=== PATIENT | female | born 1960 | race Caucasian/White ===

== ENCOUNTER 2016-07-31 06:59 | Inpatient (IN) | payer BC, OTHER ==
[~2016-07-31] VITALS: Ht 167.6 cm; Wt 86.3 kg
[2016-07-31] VITALS (9 sets, daily range): BP systolic 82–120; BP diastolic 59–70; PULSE 98–110; TEMP 36.9–38.3; O2SAT 90–96; Ht 167.6 cm; Wt 86.3 kg
[~2016-07-31 06:59] MED LIST: ALBUAER19 INH; AMIT25TA9 PO; FRS/40 PO; GABA-113 PO; METO-217 PO; OXYC15TA89 PO; PANT40TA PO; RANI300T PO; SIMV20TA5 PO; TIZA4CAP PO
[2016-07-31] MEDS ORDERED: ALBUT/IPRATROP 3MG/0.5MG NEB 3 ML VIAL INH STA (07:05)
[2016-07-31] MEDS ORDERED: SODIUM CHLORIDE 0.9% 1000ML 1,000 ML IV STA ×3 (07:05→09:48)
[2016-07-31] MEDS ORDERED: ACETAMINOPHEN 325 MG TAB PO STA (07:05)
[2016-07-31] MEDS ORDERED: LEVAQUIN 750MG / 150ML D5W IV STA (07:48)
[2016-07-31] MEDS ORDERED: PIPERACILLIN/TAZOBACTAM 4.5 GM/100ML D5W IV STA (07:48)
--- NOTE | 2016-07-31 07:49 | DIAGNOSTIC IMAGING REPORT ---
CHEST ONE VIEW PORTABLE CLINICAL HISTORY: Shortness of breath. Fever. COMPARISON STUDY: No previous studies for comparison. FINDINGS: The heart is normal in size. There are airspace opacities within the right upper lobe and right lower lung zone consistent with pneumonia. Films subsequent to treatment are recommended in follow-up. The left lung is clear. There are no pleural effusions.[ IMPRESSION: Right lung airspace opacities consistent with pneumonia. Films subsequent to treatment are recommended in follow-up Electronically signed by: William Daniel M.D. 07/31/2016 7:47 AM Dictated Date/Time: 07/31/2016 7:47 AM
[2016-07-31 07:52] LABS: BASO % 0.2 %; BASO ABS # 0.04 K/uL (0-0.2); COMPLETE YES; HEMATOCRIT 39.4 % (37-47); IG% 2.8 %; LYMPH ABS # 1.66 K/uL (1.2-3.4); MEAN CELL VOLUME 88.7 fL (80-100); MEAN CORPUSCULAR HEMOGLOBIN 29.5 pg (25-34); MEAN CORPUSCULAR HGB CONC 33.2 g/dl (32-36); MEAN PLATELET VOLUME 9.8 fL (7.4-10.4); MONO % 4.5 %; NEUT % 84.5 %; PLATELET COUNT 233 K/uL (130-400); RED BLOOD COUNT 4.44 M/uL (4.2-5.4); WHITE BLOOD COUNT 20.68 K/uL (4.8-10.8)
[2016-07-31 08:03] LABS: BUN/CREATININE RATIO 11.8 (10-20); CALCIUM 8.3 mg/dl (8.5-10.1); CREATININE 1.3 mg/dl (0.60-1.20); MAGNESIUM 1.5 mg/dl (1.8-2.4); POTASSIUM 3.8 mmol/L (3.5-5.1)
[2016-07-31 08:07] LABS: CKMB/CK RATIO 1.2 (0-3.0)
[2016-07-31] MEDS ORDERED: FENTANYL CITRATE INJ 50 MCG/1 ML 2 ML VIAL IV STA (08:10)
[2016-07-31] MEDS ORDERED: MAGNESIUM SULFATE 1GM / D5W 1 GM BAG IV STA (08:11)
--- NOTE | 2016-07-31 08:11 | EMERGENCY ROOM VISIT NOTE ---
History Report prepared by Rober: Sarah Nazario Under the Supervision of: Dr. Griselda Hebert M.D. First contact with patient: 07:05 Chief Complaint: ILLNESS Stated Complaint: FEVER,PAIN IN AB,BACK AND LEG, TROUBLE BREATHING History of Present Illness The patient is a 56 year old female who presents to the Emergency Room with complaints of persistent shortness of breath which started [employer]. She also reports that she is experiencing pain in the back, leg and hip. She rates her discomfort as a 9/10 in severity. The patient reports that she fell twice recently, once in the movie theater and once in the bathroom. She states that her legs just gave out. She has a history of back and hip problems, reporting that she has rods in her back and has had injections in her hip. Her family reports that she has been sick all winter with bronchitis. She is a former smoker, but she quit 10-15 years ago. She has received her flu shot. Source of History: patient Onset: [employer] Position: other (global) Symptom Intensity: 9/10 Quality: other (trouble breathing) Timing: other (persistent) Associated Symptoms: + back pain Note: Pt also experiencing leg and hip pain. Review of Systems See HPI for pertinent positives & negatives. A total of 10 systems reviewed and were otherwise negative. Past Medical & Surgical Medical Problems: (1) Chronic low back pain (2) GERD (gastroesophageal reflux disease) (3) Hyperlipidemia (4) Hypertension (5) PNA (pneumonia) (6) Pneumonia (7) Pneumonia (8) Sepsis Surgical Problems: (1) History of appendectomy (2) History of carpal tunnel surgery (3) History of lumbar decompression and fusion with revision Family History No pertinent family history Social History Smoking Status: Former Smoker Drug Use: none Marital Status: Housing Status: lives with family Occupation Status: disabled Current/Historical Medications Scheduled Amitriptyline Hcl (Elavil), 25 MG PO HS Gabapentin (Neurontin), 600 MG PO TID Metoprolol Succinate (Toprol Xl), 50 MG PO DAILY Pantoprazole (Protonix), 40 MG PO DAILY Ranitidine Hcl (Zantac), 300 MG PO HS Simvastatin (Zocor), 20 MG PO HS Tizanidine (Zanaflex), 8 MG PO HS Scheduled PRN Albuterol Hfa (Ventolin Hfa), 1 PUFFS INH UD PRN for Shortness of Breath Oxycodone Hcl (Oxycodone Hcl), 1 TAB PO QID PRN for Pain Allergies Coded Allergies: No Known Allergies (Unverified , 07/31/16) Physical Exam Vital Signs Date Time Temp Pulse Resp B/P Pulse Ox O2 Delivery O2 Flow Rate FiO2 07/31/16 10:41 36.6 104 20 91/56 95 Mask 5.0 07/31/16 10:08 103 07/31/16 10:05 104 83/52 94 Mask 5.0 07/31/16 09:55 105 81/55 94 Mask 5.0 07/31/16 09:37 103 26 79/52 94 Mask 5.0 07/31/16 09:27 105 26 85/56 94 Mask 5.0 07/31/16 09:17 106 26 75/49 90 Mask 4.0 07/31/16 09:10 110 26 80/41 92 Mask 4.0 07/31/16 08:47 112 20 76/40 90 Nasal Cannula 4.0 07/31/16 08:41 116 22 68/45 92 Nasal Cannula 4.0 07/31/16 08:30 119 22 49/38 90 Nasal Cannula 4.0 07/31/16 08:22 121 22 91/52 93 Nasal Cannula 4.0 07/31/16 08:08 120 20 106/66 94 Nasal Cannula 4.0 07/31/16 07:17 92 Nasal Cannula 4.0 07/31/16 07:16 120 22 98/62 82 Room Air 07/31/16 07:14 120 07/31/16 07:02 39.4 112 28 91 Room Air Physical Exam Vital signs reviewed. Noted to be tachycardic and hypoxic. Periodically hypotensive General: Well-appearing, warm to touch, in no significant distress. HEENT: No scleral icterus, PERRLA, neck supple. Atraumatic. Cardiovascular: Tachycardic, regular rhythm, no extra sounds. Pulmonary: Scattered wheezes bilaterally, normal work of breathing. Abdomen: Soft, nontender, nondistended, positive bowel sounds. Musculoskeletal: Ecchymosis and abrasions bilaterally on legs which appear to be old, no peripheral edema. Neurologic: Patient awake alert and oriented x 3, full strength in all 4 extremities. Cranial nerves 2 through 12 grossly intact. Skin: Warm, dry, no rash Medical Decision & Procedures ER Provider Diagnostic Interpretation: X-ray results as stated below per interpretation by me and the radiologist: CHEST ONE VIEW PORTABLE CLINICAL HISTORY: Shortness of breath. Fever. COMPARISON STUDY: No previous studies for comparison. FINDINGS: The heart is normal in size. There are airspace opacities within the right upper lobe and right lower lung zone consistent with pneumonia. Films subsequent to treatment are recommended in follow-up. The left lung is clear. There are no pleural effusions.[ IMPRESSION: Right lung airspace opacities consistent with pneumonia. Films subsequent to treatment are recommended in follow-up Electronically signed by: William Daniel M.D. 07/31/2016 7:47 AM Laboratory Results 07/31/16 07:25 Red Blood Count 4.44, Mean Corpuscular Volume 88.7, Mean Corpuscular Hemoglobin 29.5, Mean Corpuscular Hemoglobin Concent 33.2, Mean Platelet Volume 9.8, Neutrophils (%) (Auto) 84.5, Lymphocytes (%) (Auto) 8.0, Monocytes (%) (Auto) 4.5, Eosinophils (%) (Auto) 0.0, Basophils (%) (Auto) 0.2, Neutrophils # (Auto) 17.47, Lymphocytes # (Auto) 1.66, Monocytes # (Auto) 0.93, Eosinophils # (Auto) 0.01, Basophils # (Auto) 0.04 07/31/16 07:25 Test 07/31/16 07:25 07/31/16 07:45 07/31/16 08:00 07/31/16 09:00 White Blood Count 20.68 K/uL (4.8-10.8) Red Blood Count 4.44 M/uL (4.2-5.4) Hemoglobin 13.1 g/dL (12.0-16.0) Hematocrit 39.4 % (37-47) Mean Corpuscular Volume 88.7 fL (80-100) Mean Corpuscular Hemoglobin 29.5 pg (25-34) Mean Corpuscular Hemoglobin Concent 33.2 g/dl (32-36) Platelet Count 233 K/uL (130-400) Mean Platelet Volume 9.8 fL (7.4-10.4) Neutrophils (%) (Auto) 84.5 % Lymphocytes (%) (Auto) 8.0 % Monocytes (%) (Auto) 4.5 % Eosinophils (%) (Auto) 0.0 % Basophils (%) (Auto) 0.2 % Neutrophils # (Auto) 17.47 K/uL (1.4-6.5) Lymphocytes # (Auto) 1.66 K/uL (1.2-3.4) Monocytes # (Auto) 0.93 K/uL (0.11-0.59) Eosinophils # (Auto) 0.01 K/uL (0-0.5) Basophils # (Auto) 0.04 K/uL (0-0.2) RDW Standard Deviation 44.0 fL (36.4-46.3) RDW Coefficient of Variation 13.5 % (11.5-14.5) Immature Granulocyte % (Auto) 2.8 % Immature Granulocyte # (Auto) 0.57 K/uL (0.00-0.02) Prothrombin Time 13.5 SECONDS (9.0-12.0) Prothromb Time International Ratio 1.3 (0.9-1.1) Activated Partial Thromboplast Time 38.0 SECONDS (21.0-31.0) Partial Thromboplastin Ratio 1.5 Anion Gap 10.0 mmol/L (3-11) Est Creatinine Clear Calc Drug Dose 52.4 ml/min Estimated GFR () 53.9 Estimated GFR (Non- 46.5 BUN/Creatinine Ratio 11.8 (10-20) Calcium Level 8.3 mg/dl (8.5-10.1) Magnesium Level 1.5 mg/dl (1.8-2.4) Total Bilirubin 0.4 mg/dl (0.2-1) Direct Bilirubin 0.1 mg/dl (0-0.2) Aspartate Amino Transf (AST/SGOT) 18 U/L (15-37) Alanine Aminotransferase (ALT/SGPT) 17 U/L (12-78) Alkaline Phosphatase 82 U/L (45-117) Total Creatine Kinase 60 U/L (26-192) Creatine Kinase MB 0.7 ng/ml (0.5-3.6) Creatine Kinase MB Ratio 1.2 (0-3.0) C-Reactive Protein 26.50 mg/dl (0-0.29) Total Protein 6.3 gm/dl (6.4-8.2) Albumin 2.6 gm/dl (3.4-5.0) Lipase 40 U/L (73-393) Bedside Lactic Acid Venous 2.43 mmol/L (0.90-1.70) Influenza Type A (RT-PCR) Neg for Influ A (NEG) Influenza Type A Antigen Neg for Influ A (NEG) Influenza Type B Antigen Neg for Influ B (NEG) Influenza Type B (RT-PCR) Neg for Influ B (NEG) Venous Blood pH 7.45 (7.36-7.41) Venous Blood Partial Pressure CO2 38 mmHg (38.0-50.0) Venous Blood Partial Pressure O2 55 mmHg Venous Blood HCO3 26 mmol/L Venous Blood Oxygen Saturation 87.5 % Venous Blood Base Excess 2.0 mmol/L Test 07/31/16 10:00 07/31/16 10:40 07/31/16 11:10 Urine Color YELLOW Urine Appearance CLEAR (CLEAR) Urine pH 6.0 (4.5-7.5) Urine Specific [place] 1.006 (1.000-1.030) Urine Protein NEG (NEG) Urine Glucose (UA) NEG (NEG) Urine Ketones NEG (NEG) Urine Occult Blood TRACE (NEG) Urine Nitrite POS (NEG) Urine Bilirubin NEG (NEG) Urine Urobilinogen NEG (NEG) Urine Leukocyte Esterase LARGE (NEG) Urine WBC (Auto) >30 /hpf (0-5) Urine RBC (Auto) 0-4 /hpf (0-4) Urine Hyaline Casts (Auto) /lpf (0-5) Urine Epithelial Cells (Auto) 10-20 /lpf (0-5) Urine Bacteria (Auto) 1+ (NEG) Urine Pathogenic Casts /lpf (0) Lactic Acid Level 1.2 mmol/L (0.4-2.0) Procalcitonin 14.30 ng/mL (0-0.5) Random Cortisol 22.53 mcg/dl Laboratory results per my review. Medications Administered Medications (Trade) Dose Ordered Sig/Larry Route Start Time Stop Time Status Last Admin Dose Admin Albuterol/ Ipratropium 3 ml 3 ml NOW STAT INH 07/31/16 07:05 07/31/16 07:15 DC 07/31/16 07:53 3 ML Sodium Chloride (Nss 1000ml) 1,000 ml @ 999 mls/hr Q1H1M STAT IV 07/31/16 07:05 07/31/16 08:05 DC 07/31/16 07:52 999 MLS/HR Acetaminophen (Tylenol Tab) 650 mg NOW STAT PO 07/31/16 07:05 07/31/16 07:15 DC 07/31/16 07:52 650 MG Levofloxacin (Levaquin / D5W) 750 mg NOW STAT IV 07/31/16 07:48 07/31/16 07:50 DC 07/31/16 07:58 750 MG Piperacillin Sod/ Tazobactam Sod 4.5 gm 4.5 gm NOW STAT IV 07/31/16 07:48 07/31/16 07:50 DC 07/31/16 07:58 4.5 GM Sodium Chloride (Nss 1000ml) 1,000 ml @ 999 mls/hr Q1H1M STAT IV 07/31/16 07:50 07/31/16 08:50 DC 07/31/16 07:53 999 MLS/HR Magnesium Sulfate 1 gm 1 gm NOW STAT IV 07/31/16 08:11 07/31/16 08:12 DC 07/31/16 08:11 1 GM Vancomycin HCl 1975 mg/Sodium Chloride 539.5 ml @ 200 mls/hr ONE STAT IV 07/31/16 09:48 07/31/16 12:29 DC 07/31/16 10:17 200 MLS/HR Sodium Chloride (Nss 1000ml) 1,000 ml @ 150 mls/hr Q6H40M STAT IV 07/31/16 09:48 07/31/16 11:48 DC 07/31/16 09:48 150 MLS/HR Acetaminophen (Tylenol Tab) 650 mg Q4H PRN PO 07/31/16 09:30 08/30/16 09:29 07/31/16 15:24 650 MG Procedure Central Venous Catheter Indication: hypotension, septic shock Catheter type: triple lumen Location: right femoral vein Verbal consent was obtained after the risks and benefits were explained, including but not limited to pneumothorax, hemothorax, vessel injury, bleeding, scarring, infection, pain, and bone/joint/nerve damage. At this time, the risks of the procedure are less than the risks of NOT performing the procedure. A time out was taken and the correct patient and site identified. The patient was placed in the supine position and the skin was prepped in the standard fashion with chlorhexidine and full sterile drapes applied. The proper landmarks were identified with ultrasound, anesthetized with 1% lidocaine without epinephrine, and the needle was inserted through the skin in the standard fashion. The needle was carefully advanced into blood vessel lumen under ultrasound guidance. The guidewire was placed uneventfully. The vessel is dilated and the catheter was placed. It was sutured into position. There was good blood return from all ports. The patient tolerated the procedure well and there were no complications. Post procedure ultrasound confirms the catheter in the femoral vein. ECG Indication: SOB/dyspnea Rate (beats per minute): 121 Rhythm: sinus tachycardia Findings: no acute ischemic change, no ectopy ED Course 0715: Past medical records reviewed. The patient was evaluated in room A3. A complete history and physical examination was performed. 0705: Acetaminophen 650 mg PO, NSS 1000 ml @ 999 mls/hr IV, Duoneb 3 ml INH. 0748: Zosyn IV 4.5 gm IV, Levofloxacin 750 mg IV. 0750: NSS 1000 ml @ 999 mls/hr IV. 0811: Magnesium Sulfate 1 gm IV. 0813: I spoke with [place] [facility] [place] We discussed the patients results and treatment plan. The patient will be evaluated by the [facility] for further management. 0815: I reevaluated the patient. I discussed the results and treatment plan with the patient. I answered all pertaining questions that she had. She expressed understanding and verbalized agreement. 0900: I placed a central venous line in the patient. 0947: I reevaluated the patient. She is resting comfortably. Medical Decision Fever: Influenza, other viral illness, pneumonia, urinary tract infection, metabolic abnormality, medication effect, cellulitis, meningitis, intra-abdominal source. This patient was evaluated and appeared to be in some distress. Patient is noted to be tachycardic, febrile and periodically hypotensive. She was hydrated with normal saline solution. Blood cultures and lactic acid were obtained. Patient was medicated with IV Levaquin and Zosyn after chest x-ray reveals a right upper and lower lobe opacity. Patient's white blood cell count is 20,000. She was given a DuoNeb treatment. Influenza swab is negative. Despite 4 L of IV fluids, the patient's blood pressure remained hypotensive in the ED systolic. A right inguinal triple-lumen catheter was placed. Please see my procedure note above. The need for vasopressors has been left to the inpatient service. Patient maintained her oxygen saturations on nasal cannula oxygen. The case has been signed off to the hospitalist service and intensive care. The patient will be admitted to the ICU for further management. She and her are aware of the plan and agree. Consults Time Called: 0750 Consulting Physician: Dr. [place] [facility] [place] Returned Call: 0813 We discussed the patients results and treatment plan. The patient will be evaluated by the [facility] for further management. Impression Primary Impression: Sepsis Additional Impression: Pneumonia Critical Care I have personally spent greater than 35 minutes of critical care time in the direct management of this patient. This includes bedside care, interpretation of diagnostic studies, and testing, discussion with consultants, patient, and family members, and other required patient management activities. This 35 minutes is in excess of all separately billable procedures. Scribe Attestation The scribe's documentation has been prepared under my direction and personally reviewed by me in its entirety. I confirm that the note above accurately reflects all work, treatment, procedures, and medical decision making performed by me. Departure Information Dispostion Being Evaluated By Hospitalist Referrals Wilman Ardon PA-C (PCP) Patient Instructions My [facility] Problem Qualifiers Primary Impression: Sepsis Sepsis type: sepsis due to unspecified organism Qualified Codes: A41.9 - Sepsis, unspecified organism Additional Impression: Pneumonia Pneumonia type: due to unspecified organism Laterality: right Lung location : unspecified part of lung Qualified Codes: J18.9 - Pneumonia, unspecified organism
[2016-07-31] MEDS ORDERED: VNTHFA/IN INH (08:30)
[2016-07-31 09:11] LABS: VEN BLD GAS O2 SATURATION 87.5 %
[2016-07-31] MEDS ORDERED: MAGNESIUM HYDROXIDE SUSP 30 ML UDC PO PRN (09:30)
[2016-07-31] MEDS ORDERED: ALUMINUM/MAGNESIUM/SIMETH (MAALOX MAX) 30 ML UDC PO PRN (09:30)
[2016-07-31] MEDS ORDERED: ONDANSETRON INJ 2 MG/ML 2 ML VIAL IV PRN (09:30)
[2016-07-31] MEDS ORDERED: OXYC-164 PO (09:33)
--- NOTE | 2016-07-31 09:38 | DIAGNOSTIC IMAGING REPORT ---
Limited venous Doppler VENOUS DOPP LOWER EXT UNILAT CLINICAL HISTORY: RLE TRIPLE LUMEN, VERIFY VENOUS PLACEMENT tube position TECHNIQUE: Ultrasound COMPARISON STUDY: None FINDINGS: Ultrasound confirms presence of a venous catheter within the right common femoral vein IMPRESSION: Venous catheter is confirmed to be within the right common femoral vein Electronically signed by: Андрей Brito M.D. 07/31/2016 9:37 AM Dictated Date/Time: 07/31/2016 9:36 AM
[2016-07-31] MEDS ORDERED: SODIUM CHLORIDE 0.9% IV STA (09:48)
[2016-07-31] MEDS ORDERED: VANCOMYCIN IV STA (09:48)
[2016-07-31 10:29] LABS: INFLUENZA A PCR Neg for Influ A (NEG); INFLUENZA B PCR Neg for Influ B (NEG)
[2016-07-31 10:44] LABS: URINE APPEARANCE CLEAR (CLEAR); URINE BILIRUBIN NEG (NEG); URINE COLOR YELLOW; URINE NITRITE POS (NEG); URINE SPECIFIC GRAVITY 1.006 (1.000-1.030); UROBILINOGEN NEG (NEG); ZZURINE CULT IF INDIC CATH YES
[2016-07-31 10:48] LABS: INR 1.3 (0.9-1.1); PARTIAL THROMBOPLASTIN RATIO 1.5; PROTHROMBIN TIME (PATIENT) 13.5 SECONDS (9.0-12.0)
[2016-07-31 10:51] LABS: MANUAL MICROSCOPIC REQUIRED? NO; REVIEW REQ? YES
--- NOTE | 2016-07-31 10:51 | History and Physical ---
History & Physical Date & Time of Service: Jul 31, 2016 at 10:08 Chief Complaint: Fever,Pain In Ab,Back And Leg, Trouble Breathing Primary Care Physician: Wilman Ardon PA-C History of Present Illness Source: patient, spouse ( at bedside), clinic records, hospital records This is a 56 y/o female with a history of HTN, HLD, chronic back pain, migraines , and GERD who presented to the ED on 07/31 with shortness of breath, fevers, weakness and fatigue. Patient states she has had shortness of breath for the last few days that has gotten progressively worse. The patient does not use any supplemental oxygen at home. She does have an albuterol inhaler to use as needed, although this has not helped with her symptoms. She complains of fevers at home along with a productive cough, wheezing, dyspnea on exertion, lightheadedness, weakness, and fatigue. She complains of intermittent a 5/10 dull chest pain located in the center of her chest. She also complains of a 6/ 10 dull abdominal pain that is intermittent. Last night she experienced nausea and vomiting. She has not had much of an appetite in the last few days. She reports 2 recent falls due to weakness, one the night of 07/26 and one last night. She denies any loss of consciousness or head trauma. She complains of pain in the right hip and leg following the falls. The patient denies chills, sweats, palpitations, claudication, dysuria, hematuria, urinary retention, paralysis, numbness and tingling. The patient arrived to the ED tachycardic and hypotensive as well as febrile. A right femoral triple lumen central line was placed by the ED physician after the patient's blood pressure dropped to 49/38. The patient has received a total of 4 L of normal saline boluses and remains hypotensive. Past Medical/Surgical History Medical Problems: (1) Chronic low back pain Status: Chronic (2) GERD (gastroesophageal reflux disease) Status: Chronic (3) Hyperlipidemia Status: Chronic (4) Hypertension Status: Chronic Migraines Surgical Problems: (1) History of appendectomy Status: Resolved (2) History of carpal tunnel surgery Status: Resolved (3) History of lumbar decompression and fusion with revision Status: Resolved Family History Hypertension Myocardial infarction Stroke Social History Smoking Status: Former Smoker Smokeless Tobacco Use: No Alcohol Use: none Drug Use: none Marital Status: Housing status: lives with family ( and grandchildren) Occupational Status: disabled Immunizations History of Influenza Vaccine: No History of Tetanus Vaccine?: Yes History of Pneumococcal: No History of Hepatitis B Vaccine: Yes Allergies Coded Allergies: No Known Allergies (Unverified , 07/31/16) Home Medications Scheduled Amitriptyline Hcl (Elavil), 25 MG PO HS Gabapentin (Neurontin), 600 MG PO TID Metoprolol Succinate (Toprol Xl), 50 MG PO DAILY Pantoprazole (Protonix), 40 MG PO DAILY Ranitidine Hcl (Zantac), 300 MG PO HS Simvastatin (Zocor), 20 MG PO HS Tizanidine (Zanaflex), 8 MG PO HS Scheduled PRN Albuterol Hfa (Ventolin Hfa), 1 PUFFS INH UD PRN for Shortness of Breath Oxycodone Hcl (Oxycodone Hcl), 1 TAB PO QID PRN for Pain Review of Systems Constitutional: + fatigue, + fever, + problem reported (lightheadedness), + weakness, No chills, No sweats Eyes: No diplopia, No eye pain, No worsening of vision ENT: No hearing loss, No sore throat, No trouble swallowing Respiratory: + cough, + dyspnea on exertion, + shortness of breath, + sputum, + wheezing, No hemoptysis Cardiovascular: + PND, + chest pain (5/10 dull pain in center of chest), + orthopnea (intermittent) Abdomen: + nausea (last night), + pain (6/10 dull diffuse abdominal pain), + vomiting (last night) Musculoskeletal: + joint pain (low back, right leg and hip), No calf pain, No swelling Genitourinary - Female: No dysuria, No hematuria, No urinary retention Neurologic: No numbness/tingling, No paralysis, No weakness Integumentary: No color change, No itch, No rash Physical Exam Vital Signs Date Time Temp Pulse Resp B/P Pulse Ox O2 Delivery O2 Flow Rate FiO2 07/31/16 10:08 103 07/31/16 10:05 104 83/52 94 Mask 5.0 07/31/16 09:55 105 81/55 94 Mask 5.0 07/31/16 09:37 103 26 79/52 94 Mask 5.0 07/31/16 09:27 105 26 85/56 94 Mask 5.0 07/31/16 09:17 106 26 75/49 90 Mask 4.0 07/31/16 09:10 110 26 80/41 92 Mask 4.0 07/31/16 08:47 112 20 76/40 90 Nasal Cannula 4.0 07/31/16 08:41 116 22 68/45 92 Nasal Cannula 4.0 07/31/16 08:30 119 22 49/38 90 Nasal Cannula 4.0 07/31/16 08:22 121 22 91/52 93 Nasal Cannula 4.0 07/31/16 08:08 120 20 106/66 94 Nasal Cannula 4.0 07/31/16 07:17 92 Nasal Cannula 4.0 07/31/16 07:16 120 22 98/62 82 Room Air 07/31/16 07:14 120 07/31/16 07:02 39.4 112 28 91 Room Air General Appearance: WD/WN, + moderate distress Head: normocephalic, atraumatic Eyes: normal inspection, PERRL, EOMI ENT: normal ENT inspection, hearing grossly normal, + pertinent finding ( copious thick, white mucus in mouth) Neck: supple, no JVD, trachea midline Respiratory/Chest: normal breath sounds, + respiratory distress (mild), + decreased breath sounds (R>L), + wheezing (scattered throughout), + pertinent finding (center of chest TTP) Cardiovascular: no gallop, no murmur, + tachycardia (regular rhythm), + abnormal peripheral pulses (weak peripheral pulses) Abdomen/GI: normal bowel sounds, soft, + tenderness (mild tenderness in upper quadrants and epigastric area) Extremities/Musculoskelatal: normal inspection, no calf tenderness, + swelling (1+ pitting edema in lower extremities bilaterally) Neurologic/Psych: alert, normal mood/affect, oriented x 3 Skin: normal color, warm/dry, no rash, + pertinent finding (ecchymosis on left knee, scabbed wound on right knee) Diagnostics Laboratory Results Results Past 24 Hours Test 07/31/16 07:25 07/31/16 07:45 07/31/16 08:00 07/31/16 09:00 Range/Units White Blood Count 20.68 4.8-10.8 K/uL Red Blood Count 4.44 4.2-5.4 M/uL Hemoglobin 13.1 12.0-16.0 g/dL Hematocrit 39.4 37-47 % Mean Corpuscular Volume 88.7 80-100 fL Mean Corpuscular Hemoglobin 29.5 25-34 pg Mean Corpuscular Hemoglobin Concent 33.2 32-36 g/dl Platelet Count 233 130-400 K/uL Mean Platelet Volume 9.8 7.4-10.4 fL Neutrophils (%) (Auto) 84.5 % Lymphocytes (%) (Auto) 8.0 % Monocytes (%) (Auto) 4.5 % Eosinophils (%) (Auto) 0.0 % Basophils (%) (Auto) 0.2 % Neutrophils # (Auto) 17.47 1.4-6.5 K/uL Lymphocytes # (Auto) 1.66 1.2-3.4 K/uL Monocytes # (Auto) 0.93 0.11-0.59 K/uL Eosinophils # (Auto) 0.01 0-0.5 K/uL Basophils # (Auto) 0.04 0-0.2 K/uL RDW Standard Deviation 44.0 36.4-46.3 fL RDW Coefficient of Variation 13.5 11.5-14.5 % Immature Granulocyte % (Auto) 2.8 % Immature Granulocyte # (Auto) 0.57 0.00-0.02 K/uL Sodium Level 138 136-145 mmol/L Potassium Level 3.8 3.5-5.1 mmol/L Chloride Level 101 98-107 mmol/L Carbon Dioxide Level 27 21-32 mmol/L Anion Gap 10.0 3-11 mmol/L Blood Urea Nitrogen 15 7-18 mg/dl Creatinine 1.30 0.60-1.20 mg/dl Est Creatinine Clear Calc Drug Dose 52.4 ml/min Estimated GFR () 53.9 Estimated GFR (Non- 46.5 BUN/Creatinine Ratio 11.8 10-20 Random Glucose 109 70-99 mg/dl Calcium Level 8.3 8.5-10.1 mg/dl Magnesium Level 1.5 1.8-2.4 mg/dl Total Bilirubin 0.4 0.2-1 mg/dl Direct Bilirubin 0.1 0-0.2 mg/dl Aspartate Amino Transf (AST/SGOT) 18 15-37 U/L Alanine Aminotransferase (ALT/SGPT) 17 12-78 U/L Alkaline Phosphatase 82 45-117 U/L Total Creatine Kinase 60 26-192 U/L Creatine Kinase MB 0.7 0.5-3.6 ng/ml Creatine Kinase MB Ratio 1.2 0-3.0 Total Protein 6.3 6.4-8.2 gm/dl Albumin 2.6 3.4-5.0 gm/dl Bedside Lactic Acid Venous 2.43 0.90-1.70 mmol/L Influenza Type A Antigen Neg for Influ A NEG Influenza Type B Antigen Neg for Influ B NEG Venous Blood pH 7.45 7.36-7.41 Venous Blood Partial Pressure CO2 38 38.0-50.0 mmHg Venous Blood Partial Pressure O2 55 mmHg Venous Blood HCO3 26 mmol/L Venous Blood Oxygen Saturation 87.5 % Venous Blood Base Excess 2.0 mmol/L Microbiology Results 07/31/16 Blood Culture, Received Pending 07/31/16 Blood Culture, Received Pending Diagnostic Radiology Reviewed the following studies and agree with interpretation as follows: Patient Name: JAIMIE JACKSON Unit Number: [id number] Dictated: 07/31/16746 Transcribed: 07/31/16746 ARG Printed Date/Time: [~ rep prt dt]/[~ rep prt tm] [~ rep ct labl] - [~ rep ct ivnm] [facility] [place] [place] [address] Dictated: 07/31/16746 Transcribed: 07/31/16746 ARG Printed Date/Time: [~ rep prt dt]/[~ rep prt tm] [~ rep ct labl] - [~ rep ct ivnm] Patient: JAIMIE JACKSON Address1: [address] Rec: [id number] Address2: [address] [place] [address] Acct ID: [id number] [facility] Zip: [place] [id number] Date: 1960 Sex: F Room/Bed: Ref Phy: Wilman Ardon PA-C SC: STANLEY Att Phy: Report #: [id number] Dahlia Phy: Wilman Ardon PA-C Test: [id number] Admit Phy: Manager Transportation: KAMILLE Interpreting Phy: William Daniel M.D. Diagnosis: FEVER,PAIN IN AB,BACK AND LEG , TROUBLE BREATHING Ordering Phy: Griselda Hebert M.D. Service Date: 07/31/16 Admit Date: 07/31/16 MNE: PWRSCRIBE CONF: DICTATED BY: William Daniel M.D.]] CC: Griselda Hebert M.D. Lazorka, Jeremy D. PA-C Endcc: [~ rep ct add3]] CHEST ONE VIEW PORTABLE CLINICAL HISTORY: Shortness of breath. Fever. COMPARISON STUDY: No previous studies for comparison. FINDINGS: The heart is normal in size. There are airspace opacities within the right upper lobe and right lower lung zone consistent with pneumonia. Films subsequent to treatment are recommended in follow-up. The left lung is clear. There are no pleural effusions.[ IMPRESSION: Right lung airspace opacities consistent with pneumonia. Films subsequent to treatment are recommended in follow-up Electronically signed by: William Daniel M.D. 07/31/2016 7:47 AM Dictated Date/Time: 07/31/2016 7:47 AM The status of this report is Signed. Draft = Not yet reviewed or approved by Radiologist. Signed = Reviewed and approved by Radiologist. <AttendingPhy></AttendingPhy> <FamilyPhy>Wilman Ardon PA-C</FamilyPhy> < PrimaryPhy>Wilman Ardon PA-C</PrimaryPhy> <UnitNumber>[id number]</ UnitNumber> <VisitNumber>[id number]</VisitNumber> <PatientName>JAIMIE JACKSON</ PatientName> <DateOfBirth>1960</DateOfBirth> <Location>[facility]</Location> < ServiceDate>07/31/16</ServiceDate> <MNE>ESINDI</MNE> <OrderingPhy>Griselda Hebert M.D.</OrderingPhy> <OrderingPhyMNE>f rep ord dr awad</OrderingPhyMNE> < DictatingPhyMNE>f rep dict dr awad</DictatingPhyMNE> <CCListMNE>f rep ct mne</ CCListMNE> <AdmittingPhyMNE>f pt admit dr awad</AdmittingPhyMNE> <AttendingPhyMNE >f pt attend dr awad</AttendingPhyMNE> <ConsultingPhyMNE>f pt consult dr awad</ConsultingPhyMNE> <FamilyPhyMNE>f pt fam dr awad</FamilyPhyMNE> <OtherPhyMNE>f pt other dr awad</OtherPhyMNE> < PrimaryPhyMNE>f pt prim care dr awad</PrimaryPhyMNE> <ReferringPhyMNE>f pt referring dr awad</ReferringPhyMNE> Patient Name: JAIMIE JACKSON Unit Number: [id number] Dictated: 07/31/16935 Transcribed: 07/31/16935 MS Printed Date/Time: [~ rep prt dt]/[~ rep prt tm] [~ rep ct labl] - [~ rep ct ivnm] [facility] [place] [address] Dictated: 07/31/16935 Transcribed: 07/31/16935 MS Printed Date/Time: [~ rep prt dt]/[~ rep prt tm] [~ rep ct labl] - [~ rep ct ivnm] Patient: JAIMIE JACKSON Address1: [address] Rec: [id number] Address2: [address] [place] [address] Acct ID: [id number] [facility] Zip: [place] [address] Date: 1960 Sex: F Room/Bed: Ref Phy: Wilman Ardon PA-C SC: STANLEY Att Phy: Report #: [id number] Dahlia Phy: Wilman Ardon PA-C Test: VDLEU Admit Phy: Manager Transportation: TERRA Interpreting Phy: Андрей Brito M.D. Diagnosis: FEVER,PAIN IN AB,BACK AND LEG , TROUBLE BREATHING Ordering Phy: Griselda Hebert M.D. Service Date: 07/31/16 Admit Date: 07/31/16 MNE: PWRSCRIBE CONF: DICTATED BY: Андрей Brito M.D.]] CC: Griselda Hebert M.D. Lazorka, Jeremy D. PA-C Endcc: [~ rep ct add3]] Limited venous Doppler VENOUS DOPP LOWER EXT UNILAT CLINICAL HISTORY: RLE TRIPLE LUMEN, VERIFY VENOUS PLACEMENT tube position TECHNIQUE: Ultrasound COMPARISON STUDY: None FINDINGS: Ultrasound confirms presence of a venous catheter within the right common femoral vein IMPRESSION: Venous catheter is confirmed to be within the right common femoral vein Electronically signed by: Андрей Brito M.D. 07/31/2016 9:37 AM Dictated Date/Time: 07/31/2016 9:36 AM The status of this report is Signed. Draft = Not yet reviewed or approved by Radiologist. Signed = Reviewed and approved by Radiologist. <AttendingPhy></AttendingPhy> <FamilyPhy>Wilman Ardon PA-C</FamilyPhy> < PrimaryPhy>Wilman Ardon PA-C</PrimaryPhy> <UnitNumber>[id number]</ UnitNumber> <VisitNumber>[id number]</VisitNumber> <PatientName>JAIMIE JACKSON</ PatientName> <DateOfBirth>1960</DateOfBirth> <Location>[facility]</Location> < ServiceDate>07/31/16</ServiceDate> <MNE>ESINDI</MNE> <OrderingPhy>Griselda Hebert M.D.</OrderingPhy> <OrderingPhyMNE>f rep ord dr awad</OrderingPhyMNE> < DictatingPhyMNE>f rep dict dr awad</DictatingPhyMNE> <CCListMNE>f rep ct josettee</ CCListMNE> <AdmittingPhyMNE>f pt admit dr awad</AdmittingPhyMNE> <AttendingPhyMNE >f pt attend dr awad</AttendingPhyMNE> <ConsultingPhyMNE>f pt consult dr awad</ConsultingPhyMNE> <FamilyPhyMNE>f pt fam dr awad</FamilyPhyMNE> <OtherPhyMNE>f pt other dr awad</OtherPhyMNE> < PrimaryPhyMNE>f pt prim care dr awad</PrimaryPhyMNE> <ReferringPhyMNE>f pt referring dr awad</ReferringPhyMNE> EKG Reviewed EKG and agree with interpretation as follows: 121 bpm, sinus tachycardia Impression Assessment and Plan 56 y/o female with a history of HTN, HLD, chronic back pain, migraines, and GERD who presented to the ED on 07/31 with shortness of breath, fevers, weakness and fatigue. Patient had 2 recent falls due to weakness. Patient arrives to ED febrile with temperature of 39.4C, tachycardic with heart rate of 120s, and hypotensive with BP 98/62 on arrival. Patient's blood pressure did drop to 49/ 38 despite receiving fluids. Central line was placed at that time. Patient has received a total of 4 L of normal saline boluses, but systolic blood pressure remains in 80s. Currently saturating at 94% on 5L mask. Patient has an elevated WBC of 20.68. Rapid flu negative. Elevated creatinine above baseline. [id number] lactic acid elevated at 2.43. Magnesium low at 1.5. CXR shows consolidations mid to lower right lung consistent with pneumonia. EKG shows sinus tachycardia with no ischemic changes. Septic shock secondary to pneumonia--patient meets septic shock criteria due to fever, tachycardia, elevated WBC and suspected source of infection. Patient has remained hypotensive despite adequate fluid resuscitation. -Admit to ICU. Pt has TONAWANDA II score of 12 -IV vancomycin, Zosyn and Levaquin -Repeat lactic acid at 1100 -Patient will likely need pressors, will defer to boring machine operator vertical -IVF NSS at 125 cc/hr. 4L in ED. -Obtain sputum culture if able -Xopenex/Atrovent nebulizers QIDR and q2h prn SOB/wheezing -O2 by protocol Acute kidney injury--baseline creatinine 0.8 -Creatinine on arrival 1.3 -Fluids as above, continue to monitor Hypomagnesemia -Magnesium 1.5 upon arrival -Patient started on 1 g magnesium sulfate IV however infusion was stopped due to hypotension and was not completed H/o HTN--currently hypotensive despite fluids -Hold metoprolol for now due to hypotension HLD -Continue simvastatin 20 mg PO qd Chronic back pain -Continue gabapentin 600 mg PO TID -Hold oxycodone due to hypotension Migraines -Continue amitriptyline 25 mg PO qhs GERD -Continue Protonix 40 mg PO qd and Zantac 300 mg PO qhs GI prophylaxis -Maalox Max 15 mL PO q4h prn dyspepsia -Milk of magnesia 30 mL PO q6h prn constipation -Zofran 4 mg IV q6h prn nausea DVT prophylaxis -Heparin 5000 units SC q12h -AURELIA márquez and SCDs Code Status -Level I, FULL RESUSCITATION STATUS Level of Care Critical Care Resuscitation Status FULL RESUSCITATION VTE Prophylaxis VTE Risk Assessment Done? Y/N: Yes Risk Level: Moderate Given or contraindicated: Unfractionated heparin SQ, T.E.D. Stockings, SCD's Note Total Time: Critical Care > 74 minutes Reviewed: Pt Seen/Exam by Me History Physician Manager Solution Supervision Note: I interviewed and examined the patient. Discussed with JOSE ANTONIO Reddy and agree with findings and plan as documented in the note. Any exceptions or clarifications are listed here: Pt here with progressively worsening SOB, productive cough, fevers, altered mental status, weakness causing fall onto knees. Found to have multilobar right sided PNA, severe hypotension, severe sepsis. Pt seen this AM in ER and again later this evening. Much improved throughout the day. BPs improved and did not end up requiring pressor support so far. Making good amount of urine. COugh persists. Entire history reviewed with pt Vitals reviewed mild-mod distress no oral thrush, anicteric sclerae tachy, regular no mgr decreased BS and coarse BS on entire right hemithorax, left lung clear Abd +BS, incisional scar midline lower abd, +TTP in RUQ and along inferior costal margin but no guarding, is soft, ND, no masses Ext no edema, 2+ DP pulses, right femoral CVC in place SKin left leg chronic venous stasis hyperpigmentation, bilateral knee abrasions no active bleeding 56 yo female with severe sepsis, CAP, acute hypoxemic resp failure, UTI POA -continue IVFs for resuscitation, watch for need for pressors in ICU overnight -continue triple therapy abx for broad coverage -continue nebs for PNA and h/o smoking -follow BCxs, Ur cx as UA grossly abnl with UTI, obtain sputum cx -supplemental O2 and wean as tolerated -abd pain seems to be pleuritic in nature -follow CXR -heparin for DVT proph Documented By: Daniela Nj
[2016-07-31] MEDS ORDERED: PIPERACILL/TAZOBAC CONSULT ACTIVE PRN (11:00)
[2016-07-31] MEDS ORDERED: LEVOFLOXACIN CONSULT ACTIVE PRN (11:00)
[2016-07-31] MEDS ORDERED: VANCOMYCIN CONSULT ACTIVE PRN (11:00)
--- NOTE | 2016-07-31 11:29 | Critical Care Consultation ---
Critical Care Consultation Date of Consultation: Jul 31, 2016. 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 She has actually fallen twice. She has not injured her head or felt ALOC/ presyncope, the fall was more because of weakness. She then noted she started to have increasing epigastric "achiness" which started yesterday. This decreased her appetite but no N&V. It is a 5/ currently without radiation. Finally today she states that she suddenly had this severe onset of SOB that brought her to the ED. She was found to be febrile , tachycardic, tachypnic and hypotensive. Sepsis protocol was initiated and fluid boluses were administered x 4 and a right femoral line was placed by the ED physician. After four liters of NSS her MAP was maintained > 65 and no pressors were started. A cxr revealed a likely source and revealed a RLL PNA. Decision to admit was made and patient was transferred to the ICU. On assessment she states that she feels better after the fluid resuscitation and extremely SOB with any movement. She feels comfortable resting in bed. Her last admission was in 2012 and was also for SOB. It was suspected it was because of asthma exacerbation. Past Medical/Surgical History HTN Hyperlipidemia GERD Appendectomy Carpal tunnel repair Lumbar decompression and fusion Family History Hypertension Myocardial infarction Stroke Social History Smoking Status: Former Smoker Smokeless Tobacco Use: No Alcohol Use: none Drug Use: none Marital Status: Housing Status: lives with family (grandson and cat at home) Occupation Status: disabled Allergies Coded Allergies: No Known Allergies (Unverified , 07/31/16) Home Medications Scheduled Amitriptyline Hcl (Elavil), 25 MG PO HS Gabapentin (Neurontin), 600 MG PO TID Metoprolol Succinate (Toprol Xl), 50 MG PO DAILY Pantoprazole (Protonix), 40 MG PO DAILY Ranitidine Hcl (Zantac), 300 MG PO HS Simvastatin (Zocor), 20 MG PO HS Tizanidine (Zanaflex), 8 MG PO HS Scheduled PRN Albuterol Hfa (Ventolin Hfa), 1 PUFFS INH UD PRN for Shortness of Breath Oxycodone Hcl (Oxycodone Hcl), 1 TAB PO QID PRN for Pain Current Inpatient Medications Current Inpatient Medications Medications (Trade) Dose Ordered Sig/Larry Route Start Time Stop Time Status Last Admin Dose Admin Vancomycin HCl 1975 mg/Sodium Chloride 539.5 ml @ 200 mls/hr ONE STAT IV 07/31/16 09:48 07/31/16 12:29 07/31/16 10:17 200 MLS/HR Sodium Chloride (Nss 1000ml) 1,000 ml @ 150 mls/hr Q6H40M STAT IV 07/31/16 09:48 07/31/16 16:27 07/31/16 09:48 150 MLS/HR Heparin Sodium (Porcine) 5000 unit 5,000 unit Q12H SQ 07/31/16 09:30 08/30/16 09:29 UNV Sodium Chloride (Nss 1000ml) 1,000 ml @ 125 mls/hr Q8H IV 07/31/16 09:27 08/30/16 09:26 UNV Acetaminophen (Tylenol Tab) 650 mg Q4H PRN PO 07/31/16 09:30 08/30/16 09:29 Al Hydrox/Mg Hydrox/Simethicone (Maalox Max Susp) 15 ml Q4H PRN PO 07/31/16 09:30 08/30/16 09:29 Magnesium Hydroxide (Milk Of Magnesia Susp) 30 ml Q12H PRN PO 07/31/16 09:30 08/30/16 09:29 Ondansetron HCl (Zofran Inj) 4 mg Q6H PRN IV 07/31/16 09:30 08/30/16 09:29 Levalbuterol (Xopenex 1.25MG/ 0.5ML Neb) 1.25 mg QIDR INH 07/31/16 12:00 08/30/16 11:59 UNV Ipratropium [place] (Atrovent 0.02% 0.5MG/2.5ML Neb) 0.5 mg QIDR INH 07/31/16 12:00 08/30/16 11:59 UNV Amitriptyline HCl (Elavil Tab) 25 mg HS PO 07/31/16 21:00 08/30/16 20:59 UNV Gabapentin (Neurontin Cap) 600 mg TID PO 07/31/16 14:00 08/30/16 13:59 UNV Pantoprazole Sodium (Protonix Tab) 40 mg DAILY PO 08/01/16 09:00 08/31/16 08:59 UNV Simvastatin (Zocor Tab) 20 mg HS PO 07/31/16 21:00 08/30/16 20:59 UNV Non-Formulary Medication (Ranitidine Hcl (Zantac)) 300 mg HS PO 07/31/16 21:00 08/30/16 20:59 UNV Miscellaneous Information 1 ea 1 ea ONE STAT N/A 07/31/16 10:02 07/31/16 10:03 UNV Piperacillin Sod/ Tazobactam Sod 4.5 gm/Dextrose 120 ml @ 200 mls/hr Q6 STAT IV 07/31/16 10:02 07/31/16 10:37 UNV Levofloxacin 750 mg/Prmx 150 ml @ 100 mls/hr Q24H STAT IV 07/31/16 10:02 07/31/16 11:31 UNV Vancomycin HCl/ Sodium Chloride (Vancomycin Inj/ Nss 250ml) 270 ml @ 125 mls/hr ONE STAT IV 07/31/16 10:02 07/31/16 12:11 UNV Review of Systems Constitutional: + chills, + fever Eyes: No worsening of vision ENT: No hearing loss Respiratory: + dyspnea at rest, + dyspnea on exertion, + shortness of breath, No hemoptysis Cardiovascular: No chest pain Abdomen: + pain, No constipation, No diarrhea, No nausea, No vomiting Musculoskeletal: + muscle pain, No joint pain Genitourinary - Female: No dysuria, No hematuria Neurologic: + balance problems, + weakness, No numbness/tingling Endocrine: + fatigue Integumentary: No rash Physical Exam Date Time Temp Pulse Resp B/P Pulse Ox O2 Delivery O2 Flow Rate FiO2 07/31/16 10:08 103 07/31/16 10:05 104 83/52 94 Mask 5.0 07/31/16 09:55 105 81/55 94 Mask 5.0 07/31/16 09:37 103 26 79/52 94 Mask 5.0 07/31/16 09:27 105 26 85/56 94 Mask 5.0 07/31/16 09:17 106 26 75/49 90 Mask 4.0 07/31/16 09:10 110 26 80/41 92 Mask 4.0 07/31/16 08:47 112 20 76/40 90 Nasal Cannula 4.0 07/31/16 08:41 116 22 68/45 92 Nasal Cannula 4.0 07/31/16 08:30 119 22 49/38 90 Nasal Cannula 4.0 07/31/16 08:22 121 22 91/52 93 Nasal Cannula 4.0 07/31/16 08:08 120 20 106/66 94 Nasal Cannula 4.0 07/31/16 07:17 92 Nasal Cannula 4.0 07/31/16 07:16 120 22 98/62 82 Room Air 07/31/16 07:14 120 07/31/16 07:02 39.4 112 28 91 Room Air General Appearance: moderate distress Head: normocephalic Eyes: no discharge, sclerae normal ENT: other (normal inspection) Neck: normal range of motion, no tenderness, trachea midline Respiratory: respiratory distress, other (decreased BS RLL, no wheezing) Abdomen: normal bowel sounds, RUQ TTP, LUQ TTP Back: normal inspection Upper Extremities: no edema, normal ROM Lower Extremities: no edema, normal ROM Neuro: alert, oriented x 3 Psychiatric: normal affect Laboratory Results Last 24 Hours Test 07/31/16 07:25 07/31/16 07:45 07/31/16 08:00 07/31/16 09:00 White Blood Count 20.68 K/uL Red Blood Count 4.44 M/uL Hemoglobin 13.1 g/dL Hematocrit 39.4 % Mean Corpuscular Volume 88.7 fL Mean Corpuscular Hemoglobin 29.5 pg Mean Corpuscular Hemoglobin Concent 33.2 g/dl Platelet Count 233 K/uL Mean Platelet Volume 9.8 fL Neutrophils (%) (Auto) 84.5 % Lymphocytes (%) (Auto) 8.0 % Monocytes (%) (Auto) 4.5 % Eosinophils (%) (Auto) 0.0 % Basophils (%) (Auto) 0.2 % Neutrophils # (Auto) 17.47 K/uL Lymphocytes # (Auto) 1.66 K/uL Monocytes # (Auto) 0.93 K/uL Eosinophils # (Auto) 0.01 K/uL Basophils # (Auto) 0.04 K/uL RDW Standard Deviation 44.0 fL RDW Coefficient of Variation 13.5 % Immature Granulocyte % (Auto) 2.8 % Immature Granulocyte # (Auto) 0.57 K/uL Sodium Level 138 mmol/L Potassium Level 3.8 mmol/L Chloride Level 101 mmol/L Carbon Dioxide Level 27 mmol/L Anion Gap 10.0 mmol/L Blood Urea Nitrogen 15 mg/dl Creatinine 1.30 mg/dl Est Creatinine Clear Calc Drug Dose 52.4 ml/min Estimated GFR () 53.9 Estimated GFR (Non- 46.5 BUN/Creatinine Ratio 11.8 Random Glucose 109 mg/dl Calcium Level 8.3 mg/dl Magnesium Level 1.5 mg/dl Total Bilirubin 0.4 mg/dl Direct Bilirubin 0.1 mg/dl Aspartate Amino Transf (AST/SGOT) 18 U/L Alanine Aminotransferase (ALT/SGPT) 17 U/L Alkaline Phosphatase 82 U/L Total Creatine Kinase 60 U/L Creatine Kinase MB 0.7 ng/ml Creatine Kinase MB Ratio 1.2 Total Protein 6.3 gm/dl Albumin 2.6 gm/dl Bedside Lactic Acid Venous 2.43 mmol/L Influenza Type A (RT-PCR) Neg for Influ A Influenza Type A Antigen Neg for Influ A Influenza Type B Antigen Neg for Influ B Influenza Type B (RT-PCR) Neg for Influ B Venous Blood pH 7.45 Venous Blood Partial Pressure CO2 38 mmHg Venous Blood Partial Pressure O2 55 mmHg Venous Blood HCO3 26 mmol/L Venous Blood Oxygen Saturation 87.5 % Venous Blood Base Excess 2.0 mmol/L Test 07/31/16 10:00 07/31/16 10:30 Assessment & Plan 1. Acute hypoxemic respiratory failure most likely secondary to pna- PSI 99 2. Severe sepsis- [place] II - 12% mortality 3. Hypomagnesemia 4. TIKI secondary to hypoperfusion 5. HTN 6. Hypercholesterolemia 7. GERD 8. S/P lumbar decompression NVS - alert and oriented currently - monitor for S&S of ALOC - Chronic back pain - cont gabapentin and Amitriptyline CVS - Hypotension responded to fluid - continue fluid resus to maintain MAP >65 EKG in am - continue simvastatin RVS - CXR in am - O2 per nursing protocol - currently 5 L mask - Continue Xopenex and duoneb ID - Zosyn, vanco Levaquin - Lactate repeat - CRP - if > 15 mg/ dl/ 150 mg/ L - additionally add either methylpred 0.5 mg/kg bid or Prednisone 50 mg daily for a max of 5 days - random cortisol and procalcitonin RENAL - monitor I&O - repeat BMP - continue fluid resus FEN - hypomag repleted with 1 Gm in ED - repeat in am - continue to monitor BMP GI - cont Protonix 40 mg PO daily - lipase as epigastric pain could be secondary to panc vs pna HEME - leukocytosis secondary to infection - follow - Hepain q12 for DVT Resident Physician Supervision Note: I was present with Dr. Go during the history and exam. I discussed the case with the resident and agree with the findings and plan as documented in the note. Any exceptions or clarifications are listed here: She has been given volume and antibiotics. We talked about steroids and to help with this decision a CRP will be obtained. No indications for pressors at this point. Will provide some morphine for pain control. Will required very close oversight and care until her condition improves. Goal is to remove the femoral line out as soon as possible. Positives in this case include the absence of a gap and excellent urine output already. Documented By: Stuart Del Valle Additional Copies To Wilman Ardon PA-C
[2016-07-31 11:34] LABS: C-REACTIVE PROTEIN 26.5 mg/dl (0-0.29)
[2016-07-31] MEDS: IPRATROPIUM BROMIDE NEB SOLN 0.02% 2.5 ML VIAL INH SCH ×3 (11:58→19:05)
[2016-07-31] MEDS: LEVALBUTEROL 1.25MG/0.5ML NEB INH SCH ×3 (11:58→19:05)
[2016-07-31] MEDS: MoRPHine SULFATE 2 MG/ML CARP IV PRN ×4 (12:20→23:21)
[2016-07-31] MEDS: SODIUM CHLORIDE 0.9% 1000ML 1,000 ML IV SCH (12:21)
[2016-07-31] MEDS: HEPARIN SOD 5000 UNIT/0.5 ML CARP SQ SCH ×2 (12:22→20:44)
[2016-07-31] MEDS ORDERED: PNEUMOCOCCAL POLYSACCHARIDES 25 MCG/0.5 ML VIAL/SYR IM. ONE (12:30)
[2016-07-31] MEDS ORDERED: PNEUMOCOCCAL ADMINISTRATION CHARGE ONE (12:30)
--- NOTE | 2016-07-31 13:44 | Pharmacy Progress Note ---
Pharmacy Antibiotic Consult Date of Service: Jul 31, 2016. Pharmacy Dosing Scope Pharmacy is consulted to initiate IV VANCOMYCIN, ZOSYN, and LEVOFLOXACIN therapy , order appropriate labs and adjust drug dose/frequency. Subjective The patient is a 56 year old female admitted on Jul 31, 2016 at 11:25 for fever, cough, wheezing, SOB, fatigue, NV, abdominal pain, hypotension and tachycardia - -> dx w/ sepsis secondary to CAP Objective Height (Feet): 5 Height (Inches): 6.00 Weight (Kilograms): 87.300 Lab Results (24hrs): Laboratory Tests Test 07/31/16 07:25 BUN/Creatinine Ratio 11.8 Blood Urea Nitrogen 15 mg/dl Creatinine 1.30 mg/dl White Blood Count 20.68 K/uL Red Blood Count 4.44 M/uL Hemoglobin 13.1 g/dL Hematocrit 39.4 % Mean Corpuscular Volume 88.7 fL Mean Corpuscular Hemoglobin 29.5 pg Mean Corpuscular Hemoglobin Concent 33.2 g/dl Platelet Count 233 K/uL Mean Platelet Volume 9.8 fL Neutrophils (%) (Auto) 84.5 % Lymphocytes (%) (Auto) 8.0 % Monocytes (%) (Auto) 4.5 % Eosinophils (%) (Auto) 0.0 % Basophils (%) (Auto) 0.2 % Neutrophils # (Auto) 17.47 K/uL Lymphocytes # (Auto) 1.66 K/uL Monocytes # (Auto) 0.93 K/uL Eosinophils # (Auto) 0.01 K/uL Basophils # (Auto) 0.04 K/uL Micro Results: Blood and urine cx's ordered Influenza A/B Ag and PCR negative MRSA nasal swab ordered UA possibly significant for infxn, however 10-20epis: +N, +LE, >30 WBC, 1+ bacteria Assessment & Plan * 56 yo female admitted w/ c/o fever, cough, wheezing, SOB, NV, abdominal pain, hypotension and tachycardia -->septic shock * No known risk factors for resistant organisms; MRSA nasal swab pending * CXR suggestive of PNX; procalcitonin elevated (14.3) * Appears to have TIKI, remains hypotensive despite receiving 2+ L IVF's, IVF resuscitation continues, lactate has normalized however * Renal fxn may be changing at this time. Will need to monitor VS, U.O., SCr and BUN closely. ABX will be dosed based upon estimated CrCl 50-55cc/min VANCOMYCIN * received 1975mg (~22mg/kg) loading dose x 1 @1017 * maintenance dose: 1300mg (15mg/kg) IV Q 16 hours * goal trough: 15-20mcg/mL for sepsis/pulm infxn * will check trough w/ 3rd maintenance dose - will be slightly before steady- state however will give us an idea of where we are headed * p'kinetic estimates: half-life ~14-15 hrs; Eber 0.048hr-a; Vd 0.7L/kg ZOSYN * eCrCl > 20cc/min, pt w/ septic shock admitted to ICU, BMI 31.1 * received 4.5gm IV over 30 min in ER * begin 4.5gm extended-infusion IV (over 4 hrs) Q 8 hrs LEVOFLOXACIN * eCrCl > 50cc/min, QTc 403 * continue 750mg IV Q 24 hours Pharmacy will continue to follow and will adjust dose/frequency as necessary. Thank you
[2016-07-31] MEDS ORDERED: NURSING VERBAL MED ORDER ONE (13:45)
[2016-07-31] MEDS: PIPERACILL/TAZOBAC IV 4.5 GM in DEXTROSE 5% 100ML 100 ML IV SCH ×2 (14:15→23:14)
[2016-07-31] MEDS: GABAPENTIN 300 MG CAP PO SCH ×2 (14:16→20:41)
[2016-07-31] MEDS: ACETAMINOPHEN 325 MG TAB PO PRN (15:24)
[2016-07-31] MEDS: AMITRIPTYLINE HCL 25 MG TAB PO SCH (20:41)
[2016-07-31] MEDS: RANITIDINE HCL 150 MG TAB PO SCH (20:41)
[2016-07-31] MEDS: SIMVASTATIN 20 MG TAB PO SCH (20:41)
[2016-08-01] VITALS (15 sets, daily range): BP systolic 89–120; BP diastolic 56–73; PULSE 102–118; TEMP 36.5–37.6; O2SAT 90–97
[2016-08-01] MEDS: SODIUM CHLORIDE 0.9% 1000ML 1,000 ML IV SCH (01:36)
[2016-08-01] MEDS ORDERED: VANCOMYCIN INJ 1,300 MG in SODIUM CHLORIDE 0.9% 250ML 250 ML IV SCH (02:00)
[2016-08-01] MEDS: MoRPHine SULFATE 2 MG/ML CARP IV PRN ×4 (04:51→15:52)
[2016-08-01] MEDS: PIPERACILL/TAZOBAC IV 4.5 GM in DEXTROSE 5% 100ML 100 ML IV SCH (05:35)
[2016-08-01] MEDS: ACETAMINOPHEN 325 MG TAB PO PRN (06:01)
[2016-08-01 06:02] LABS: BASO % 0.2 %; BASO ABS # 0.03 K/uL (0-0.2); COMPLETE YES; EOS % 0.2 %; HEMATOCRIT 32.4 % (37-47); IG% 0.2 %; LYMPH % 9.7 %; LYMPH ABS # 1.23 K/uL (1.2-3.4); MEAN CELL VOLUME 89.8 fL (80-100); MEAN CORPUSCULAR HEMOGLOBIN 29.1 pg (25-34); MEAN CORPUSCULAR HGB CONC 32.4 g/dl (32-36); MEAN PLATELET VOLUME 9.4 fL (7.4-10.4); MONO % 4.2 %; NEUT % 85.5 %; PLATELET COUNT 169 K/uL (130-400); RED BLOOD COUNT 3.61 M/uL (4.2-5.4); WHITE BLOOD COUNT 12.66 K/uL (4.8-10.8)
[2016-08-01 06:34] LABS: BUN/CREATININE RATIO 12.4 (10-20); CALCIUM 7.5 mg/dl (8.5-10.1); CREATININE 0.78 mg/dl (0.60-1.20); MAGNESIUM 1.7 mg/dl (1.8-2.4); PHOSPHORUS 2.7 mg/dl (2.5-4.9); POTASSIUM 3.4 mmol/L (3.5-5.1)
[2016-08-01] MEDS: IPRATROPIUM BROMIDE NEB SOLN 0.02% 2.5 ML VIAL INH SCH ×4 (07:39→19:12)
[2016-08-01] MEDS: LEVALBUTEROL 1.25MG/0.5ML NEB INH SCH ×4 (07:39→19:12)
[2016-08-01] MEDS ORDERED: MAGNESIUM SULFATE 1GM / D5W 1 GM in PREMIXED IN D5W 100 ML IV ONE (08:00)
--- NOTE | 2016-08-01 08:06 | DIAGNOSTIC IMAGING REPORT ---
CHEST ONE VIEW PORTABLE CLINICAL HISTORY: Pneumonia COMPARISON STUDY: 08-15 FINDINGS: There is minimal interval improvement in the right upper lobe and right lower lung zone airspace opacities.[ Left lung remains clear. The heart is the upper limits of normal in size. There are no significant pleural effusions. IMPRESSION: Slight improvement in the right lung airspace opacities. Electronically signed by: William Daniel M.D. 08/01/2016 8:05 AM Dictated Date/Time: 08/01/2016 8:04 AM
[2016-08-01] MEDS: POTASSIUM CHLORIDE 20 MEQ TABCR PO SCH ×3 (08:34→15:51)
[2016-08-01] MEDS: LEVOFLOXACIN / D5W 750 MG in PREMIXED IN D5W 150 ML IV SCH (08:34)
[2016-08-01] MEDS: PANTOprazole SOD 40 MG TAB PO SCH (08:35)
[2016-08-01] MEDS: GABAPENTIN 300 MG CAP PO SCH ×3 (08:39→20:51)
[2016-08-01] MEDS ORDERED: METOPROLOL SUCC 25MG EXT REL TAB PO SCH (09:00)
[2016-08-01] MEDS: OXYCODONE HCL IR 5 MG TAB (IMMEDIATE RELEASE) PO PRN ×3 (09:10→20:57)
--- NOTE | 2016-08-01 11:35 | Critical Care Progress Note ---
Critical Care Progress Note Date of Service Aug 01, 2016. ICU Day ICU Day Number: [address] Lopez Subjective patient's SOB has significantly improved, sitting up in chair She states that she is more comfortable today and the abdominal pain has become more intermittent - no N&V pain is under "ok" control and would like her home dose of medication if possible review of 10 systems was completed and negative aside from above Objective General: ambulatory, not in acute distress Skin: no rashes noted, no suspicious lesions, no areas of inflammations/ lacerations/ erythema noted CVS: S1/ S2 noted, RRR, no rubs/ murmurs noted, no cyanosis RVS: coarse breath sounds and fine crackles in RLL, diminished to bilat bases R> L, no resp distress or cyanosis Neck: inspection WNL, full ROM of neck ABD: BSx4, no pain/ tenderness on palpation, no organomegaly MSK: inspection of all limbs WNL, motor and sensation intact in all limbs, no swelling/ pain on palpation of joints Assessment & Plan 1. Acute hypoxemic respiratory failure most likely secondary to pna- PSI 99 07/18, improving 2. Severe sepsis- [place] II - 12% mortality 07/31/16- improving 3. Hypomagnesemia 4. TIKI secondary to hypoperfusion- resolved 5. HTN 6. Hypercholesterolemia 7. GERD 8. S/P lumbar decompression NVS - alert and oriented currently - monitor for S&S of ALOC - Chronic back pain - cont gabapentin and Amitriptyline CVS - continue simvastatin RVS - O2 per nursing protocol - currently 3 L NC - Continue Xopenex and duoneb ID - Zosyn, vanco Levaquin - Lactate repeat - CRPwas > 15 but because did not receive her pred dose yesterday and such sig improvement will d/c RENAL - monitor I&O - repeat BMP FEN - hypomag - has received 2 Gm total - repeat in am - K- 20 meq x 3 - continue to monitor BMP GI - cont Protonix 40 mg PO daily - lipase- WNL, abd pain most likely secondary to PNA HEME - leukocytosis secondary to infection - follow, improving - Lovenox 40 Dispo: Stable for downgrade Resident Physician Supervision Note: Dr. Go was resident physician during care of patient. I separately evaluated patient and did history and exam. I discussed the case with the resident and generally agree with the findings and plan. Decreasing oxygen requirement, tolerating fluids by mouth, feels much improved, de-escalate antibiotics to Rocephin and Levaquin for severe community-acquired pneumonia, discontinued steroids as significant improvement and did not start yesterday, medically complex however stable for downgraded Documented By: Andrea Lopez, DO Data Medications: Current Inpatient Medications Medications (Trade) Dose Ordered Sig/Larry Route Start Time Stop Time Status Last Admin Dose Admin Acetaminophen (Tylenol Tab) 650 mg Q4H PRN PO 07/31/16 09:30 08/30/16 09:29 08/01/16 06:01 650 MG Al Hydrox/Mg Hydrox/Simethicone (Maalox Max Susp) 15 ml Q4H PRN PO 07/31/16 09:30 08/30/16 09:29 Magnesium Hydroxide (Milk Of Magnesia Susp) 30 ml Q12H PRN PO 07/31/16 09:30 08/30/16 09:29 Ondansetron HCl (Zofran Inj) 4 mg Q6H PRN IV 07/31/16 09:30 08/30/16 09:29 Levalbuterol (Xopenex 1.25MG/ 0.5ML Neb) 1.25 mg QIDR INH 07/31/16 12:00 08/30/16 11:59 08/01/16 07:39 1.25 MG Ipratropium [place] (Atrovent 0.02% 0.5MG/2.5ML Neb) 0.5 mg QIDR INH 07/31/16 12:00 08/30/16 11:59 08/01/16 07:39 0.5 MG Amitriptyline HCl (Elavil Tab) 25 mg HS PO 07/31/16 21:00 08/30/16 20:59 07/31/16 20:41 25 MG Gabapentin (Neurontin Cap) 600 mg TID PO 07/31/16 14:00 08/30/16 13:59 08/01/16 08:39 600 MG Pantoprazole Sodium (Protonix Tab) 40 mg DAILY PO 08/01/16 09:00 08/31/16 08:59 08/01/16 08:35 40 MG Simvastatin (Zocor Tab) 20 mg HS PO 07/31/16 21:00 08/30/16 20:59 07/31/16 20:41 20 MG Ranitidine HCl 300 mg 300 mg HS PO 07/31/16 21:00 08/30/16 20:59 07/31/16 20:41 300 MG Levofloxacin/Prmx (Levaquin / D5W/ Premixed D5W) 150 ml @ 100 mls/hr Q24H IV 08/01/16 08:00 08/08/16 07:59 08/01/16 08:34 100 MLS/HR Levofloxacin (Consult) 1 ea UD PRN N/A 07/31/16 11:00 08/30/16 10:59 Morphine Sulfate (MoRPHine SULFATE INJ) 2 mg Q30M PRN IV 07/31/16 12:00 08/14/16 11:59 08/01/16 08:45 2 MG Potassium Chloride (Klor-Con Tab) 20 meq Q4 PO 08/01/16 08:00 08/01/16 16:01 08/01/16 08:34 20 MEQ Oxycodone HCl (Roxicodone Immediate Rel Tab) 10 mg Q6H PRN PO 08/01/16 08:45 08/15/16 08:44 08/01/16 09:10 10 MG Metoprolol Succinate (Toprol Xl Tab) 50 mg QAM PO 08/02/16 09:00 09/01/16 08:59 Tizanidine HCl (Zanaflex Tab) 8 mg HS PO 08/01/16 21:00 08/31/16 20:59 Enoxaparin Sodium (Lovenox Inj) 40 mg QAM SQ 08/01/16 09:30 08/31/16 09:29 Multivitamins 1 tab 1 tab QAM PO 08/01/16 11:00 08/31/16 10:59 Ceftriaxone Sodium/Dextrose (Rocephin Inj/D5 50ml) 60 ml @ 120 mls/hr Q24H IV 08/01/16 14:00 08/08/16 13:59 I & O: 24-Hour Column 08/01/16 07:59 Intake Total 7265 ml Output Total 4100 ml Balance 3165 ml Vital Signs: Date Time Temp Pulse Resp B/P Pulse Ox O2 Delivery O2 Flow Rate FiO2 08/01/16 08:00 36.8 104 19 89/60 92 Nasal Cannula 3.0 08/01/16 08:00 Nasal Cannula 3.0 08/01/16 07:58 114 20 90 Nasal Cannula 3.0 08/01/16 06:02 118 16 104/56 91 Nasal Cannula 3.0 08/01/16 04:00 Nasal Cannula 3.0 08/01/16 04:00 37.6 105 18 114/72 94 Nasal Cannula 3.0 08/01/16 02:00 103 14 111/61 95 Nasal Cannula 5.0 08/01/16 00:00 Nasal Cannula 5.0 08/01/16 00:00 37.2 103 102/62 94 Nasal Cannula 5.0 07/31/16 22:00 110 16 104/68 Nasal Cannula 5.0 07/31/16 20:00 37.0 106 18 104/63 95 Nasal Cannula 5.0 07/31/16 20:00 95 Nasal Cannula 5.0 07/31/16 19:05 103 20 90 Nasal Cannula 5.0 07/31/16 18:00 101 20 111/59 95 Nasal Cannula 6.0 07/31/16 16:09 100 22 96 Nasal Cannula 6.0 07/31/16 16:00 93 Nasal Cannula 6.0 07/31/16 16:00 38.3 106 22 120/66 93 Nasal Cannula 6.0 07/31/16 14:00 101 22 82/70 95 Mask 5.0 07/31/16 11:58 98 30 96 Diffusion Mask 6.0 07/31/16 11:30 36.9 102 22 97/60 93 Mask 6.0 Laboratory Results: Last 24 Hours Test 07/31/16 11:10 08/01/16 05:40 Procalcitonin 14.30 ng/mL Random Cortisol 22.53 mcg/dl White Blood Count 12.66 K/uL Red Blood Count 3.61 M/uL Hemoglobin 10.5 g/dL Hematocrit 32.4 % Mean Corpuscular Volume 89.8 fL Mean Corpuscular Hemoglobin 29.1 pg Mean Corpuscular Hemoglobin Concent 32.4 g/dl Platelet Count 169 K/uL Mean Platelet Volume 9.4 fL Neutrophils (%) (Auto) 85.5 % Lymphocytes (%) (Auto) 9.7 % Monocytes (%) (Auto) 4.2 % Eosinophils (%) (Auto) 0.2 % Basophils (%) (Auto) 0.2 % Neutrophils # (Auto) 10.81 K/uL Lymphocytes # (Auto) 1.23 K/uL Monocytes # (Auto) 0.53 K/uL Eosinophils # (Auto) 0.03 K/uL Basophils # (Auto) 0.03 K/uL RDW Standard Deviation 45.3 fL RDW Coefficient of Variation 13.7 % Immature Granulocyte % (Auto) 0.2 % Immature Granulocyte # (Auto) 0.03 K/uL Sodium Level 145 mmol/L Potassium Level 3.4 mmol/L Chloride Level 110 mmol/L Carbon Dioxide Level 26 mmol/L Anion Gap 9.0 mmol/L Blood Urea Nitrogen 10 mg/dl Creatinine 0.78 mg/dl Est Creatinine Clear Calc Drug Dose 91.7 ml/min Estimated GFR () 99.9 Estimated GFR (Non- 86.2 BUN/Creatinine Ratio 12.4 Random Glucose 77 mg/dl Calcium Level 7.5 mg/dl Phosphorus Level 2.7 mg/dl Magnesium Level 1.7 mg/dl
[2016-08-01] MEDS: MULTIVITAMIN TAB PO SCH (11:51)
[2016-08-01] MEDS: ENOXAPARIN 40 MG/0.4 ML SYR SQ SCH (11:51)
--- NOTE | 2016-08-01 13:17 | Hospitalist Progress Note ---
Hospitalist Progress Note Date of Service Aug 01, 2016. (Radha Gonzalez ., ROELC) Subjective Pt evaluation today including: conversation w/ patient, physical exam, chart review, lab review, review of studies, conversation w/ lifestyle consultant (spoke with Dr. Go), review of inpatient medication list Pain: Right hip PO Intake: Tolerating PO diet, decreased appetite Voiding: wade catheter in place Patient reports feeling much better today. She denies any shortness of breath currently, and states that she has been able to ambulate to the toilet without any MORAN. She denies any wheezing. She states that she does still have a cough , but it is now dry and non-productive. She no longer complains of nausea, vomiting, or abdominal pain. Her lower back pain and right hip persist, however. The patient did not have any appetite yesterday and was not able to eat, however this morning she did eat some breakfast. The patient denies feeling feverish, chills, sweats, chest pain, palpitations, claudication, wheezing, shortness of breath, nausea, vomiting, abdominal pain, dysuria, hematuria, urinary retention, paralysis, weakness, numbness and tingling. The patient did not have any events overnight and did not require pressor support for her blood pressure. Her antibiotics were changed to Rocephin and Levaquin IV and her IV fluids were discontinued. The patient did still have her Wade catheter in place at the time of my examination, however per nursing, Dr. Go gave a verbal order to have it removed. Femoral line has been removed. Additional Comments: See HPI for pertinent positives and negatives. All other systems reviewed and negative. (Radha Gonzalez ., JOSE ANTONIO-C) Objective Vital Signs Date Time Temp Pulse Resp B/P Pulse Ox O2 Delivery O2 Flow Rate FiO2 08/01/16 11:44 102 20 94 Nasal Cannula 3.0 08/01/16 08:00 Nasal Cannula 08/01/16 08:00 36.8 104 19 89/60 92 Nasal Cannula 3.0 08/01/16 08:00 Nasal Cannula 3.0 08/01/16 07:58 114 20 90 Nasal Cannula 3.0 08/01/16 06:02 118 16 104/56 91 Nasal Cannula 3.0 08/01/16 04:00 Nasal Cannula 3.0 08/01/16 04:00 37.6 105 18 114/72 94 Nasal Cannula 3.0 08/01/16 02:00 103 14 111/61 95 Nasal Cannula 5.0 08/01/16 00:00 Nasal Cannula 5.0 08/01/16 00:00 37.2 103 102/62 94 Nasal Cannula 5.0 07/31/16 22:00 110 16 104/68 Nasal Cannula 5.0 07/31/16 20:00 37.0 106 18 104/63 95 Nasal Cannula 5.0 07/31/16 20:00 95 Nasal Cannula 5.0 07/31/16 19:05 103 20 90 Nasal Cannula 5.0 07/31/16 18:00 101 20 111/59 95 Nasal Cannula 6.0 07/31/16 16:09 100 22 96 Nasal Cannula 6.0 07/31/16 16:00 93 Nasal Cannula 6.0 07/31/16 16:00 38.3 106 22 120/66 93 Nasal Cannula 6.0 07/31/16 14:00 101 22 82/70 95 Mask 5.0 (Radha Gonzalez ., PA-C) Physical Exam General Appearance: WD/WN, no apparent distress (resting comfortably on 4L NC at time of my exam), + obese Eyes: normal inspection, PERRL, EOMI ENT: normal ENT inspection, hearing grossly normal, pharynx normal Neck: supple, no JVD, trachea midline Respiratory/Chest: normal breath sounds, no respiratory distress, + decreased breath sounds (R>L), + wheezing (scattered wheezes, improved) Cardiovascular: no gallop, no murmur, + tachycardia (regular rhythm) Abdomen: normal bowel sounds, non tender, soft Extremities: non-tender, normal inspection, no pedal edema, + pertinent finding (R hip TTP) Neurologic/Psychiatric: alert, normal mood/affect, oriented x 3 Skin: normal color, warm/dry, no rash (Radha Gonzalez ., PA-C) Laboratory Results Last 24 Hours Test 08/01/16 05:40 White Blood Count 12.66 K/uL Red Blood Count 3.61 M/uL Hemoglobin 10.5 g/dL Hematocrit 32.4 % Mean Corpuscular Volume 89.8 fL Mean Corpuscular Hemoglobin 29.1 pg Mean Corpuscular Hemoglobin Concent 32.4 g/dl Platelet Count 169 K/uL Mean Platelet Volume 9.4 fL Neutrophils (%) (Auto) 85.5 % Lymphocytes (%) (Auto) 9.7 % Monocytes (%) (Auto) 4.2 % Eosinophils (%) (Auto) 0.2 % Basophils (%) (Auto) 0.2 % Neutrophils # (Auto) 10.81 K/uL Lymphocytes # (Auto) 1.23 K/uL Monocytes # (Auto) 0.53 K/uL Eosinophils # (Auto) 0.03 K/uL Basophils # (Auto) 0.03 K/uL RDW Standard Deviation 45.3 fL RDW Coefficient of Variation 13.7 % Immature Granulocyte % (Auto) 0.2 % Immature Granulocyte # (Auto) 0.03 K/uL Sodium Level 145 mmol/L Potassium Level 3.4 mmol/L Chloride Level 110 mmol/L Carbon Dioxide Level 26 mmol/L Anion Gap 9.0 mmol/L Blood Urea Nitrogen 10 mg/dl Creatinine 0.78 mg/dl Est Creatinine Clear Calc Drug Dose 91.7 ml/min Estimated GFR () 99.9 Estimated GFR (Non- 86.2 BUN/Creatinine Ratio 12.4 Random Glucose 77 mg/dl Calcium Level 7.5 mg/dl Phosphorus Level 2.7 mg/dl Magnesium Level 1.7 mg/dl (Radha Gonzalez ., JOSE ANTONIO-C) Diagnostic Results Reviewed the following studies, my interpretation below: Repeat CXR 08/01: marked improvement in right lung airspace opacities Repeat EKG 08/01: 109 bpm, sinus tachycardia (Radha Gonzalez PA-C) Assessment and Plan 56 y/o female with a history of HTN, HLD, chronic back pain, migraines, and GERD who presented to the ED on 07/31 with shortness of breath, fevers, weakness and fatigue. Patient had 2 recent falls due to weakness. Patient arrives to ED febrile with temperature of 39.4C, tachycardic with heart rate of 120s, and hypotensive with BP 98/62 on arrival. Patient's blood pressure did drop to 49/ 38 despite receiving fluids. Central line was placed at that time. Patient has received a total of 4 L of normal saline boluses, but systolic blood pressure remains in 80s. Currently saturating at 94% on 5L mask. Patient has an elevated WBC of 20.68. Rapid flu negative. Elevated creatinine above baseline. [id number] lactic acid elevated at 2.43. Magnesium low at 1.5. CXR shows consolidations mid to lower right lung consistent with pneumonia. EKG shows sinus tachycardia with no ischemic changes. Septic shock secondary to pneumonia--patient meets septic shock criteria due to fever, tachycardia, elevated WBC and suspected source of infection. Patient has remained hypotensive despite adequate fluid resuscitation. Pt markedly improved on 08/01 -Admit to ICU. Pt has [place] II score of 12 on admission. Transfer to telemetry on 08/01 due to significant improvement and has been stable. Femoral central line removed, no pressors were needed. -Vancomycin D/C'd, Zosyn switched to Rocephin, continue Levaquin per ICU -Repeat lactic acid at 1100 was 1.2 -Patient did not require pressor support after finishing 4L NSS boluses in ED. -IVF D/C'd -Obtain sputum culture if able -Xopenex/Atrovent nebulizers QIDR and q2h prn SOB/wheezing -O2 by protocol -Repeat CXR shows marked improvement in right lung airspace opacities Acute kidney injury--resolved. Baseline creatinine 0.8 -Creatinine on arrival 1.3 -Repeat creatinine on 08/01 was 0.78, back to baseline Hypomagnesemia--ongoing -Magnesium 1.5 upon arrival -Patient started on 1 g magnesium sulfate IV however infusion was stopped due to hypotension and was not completed -Magnesium 1.7 on 08/01. Magnesium sulfate 1 gm IV x 1 -Continue to monitor Mild hypokalemia -Potassium 3.8 upon arrival -Repeat potassium on 08/01 was 3.4. KCl 20 mEq PO q4h 3 ordered per ICU -Continue to monitor H/o HTN--BP low normal overnight, hypotensive this morning. Pt takes metoprolol succinate 50 mg PO qd at home -Received metoprolol succinate 25 mg PO this a.m. in ICU -Patient remains hypotensive, will hold off resuming home metoprolol dose. Will continue at lower dose, 25 mg HLD -Continue simvastatin 20 mg PO qd Chronic back pain -Continue gabapentin 600 mg PO TID -May resume oxycodone 10 mg PO q6h prn pain Migraines -Continue amitriptyline 25 mg PO qhs GERD -Continue Protonix 40 mg PO qd and Zantac 300 mg PO qhs GI prophylaxis -Maalox Max 15 mL PO q4h prn dyspepsia -Milk of magnesia 30 mL PO q6h prn constipation -Zofran 4 mg IV q6h prn nausea DVT prophylaxis -Enoxaparin 40 mg SC q24h as renal function back to baseline -AURELIA sotoe and SCDs Code Status -Level I, FULL RESUSCITATION STATUS (Radha Gonzalez ., GUY) Reviewed: Pt Seen/Exam by Me (Daniela Nj MD) History Physician [employer] Standards Coach Supervision Note: I interviewed and examined the patient. Discussed with JOSE ANTONIO Gonzalez and agree with findings and plan as documented in the note. Any exceptions or clarifications are listed here: States much improved now, feeling so much better, really not coughing much. Wade removed, transferred to [facility], remains in sinus tach, beta dena restarted at lower dose, is volume resuscitated and BPs imrpoved. Vitals removed, NAD, pleasant, AAOx3 sitting in chair tachycardic, reg rhythm no mgr decreased BS and crackles on right lower and middle lung rae abd soft NT ND +BS Ext no edema, no calf tenderness skin no rashes, with chronic venous stasis changes legs 56 yo female with severe sepsis, CAP, acute hypoxemic resp failure, Suspected UTI POA now ruled out--> significantly improved Remains in sinus tach possibly from reflexive tachycardia from missing beta dena-is adequately volume resuscitated -d/c'd IVFs -continue Levaquin, d/c'd Vanc and d/c'd Zosyn, switched to Rocephin for narrower coverage -continue nebs for PNA and h/o smoking -follow BCxs, Ur cx no significant growth, obtain sputum cx if possible -supplemental O2 and wean as tolerated -abd pain seems to be pleuritic in nature-now resolved -follow CXR -restart home metoprolol at lower dose, restart other home meds for chronic pain and migraines, GERD -replace lytes -Lovenox for DVT proph Documented By: Danilea Nj (Daniela Nj MD)
[2016-08-01] MEDS: CEFTRIAXONE SOD INJ 1000 MG in DEXTROSE 5% 50ML IV SCH (14:35)
[2016-08-01 15:37] LABS: HEMATOCRIT 32.9 % (37-47); MEAN CELL VOLUME 89.4 fL (80-100); MEAN CORPUSCULAR HEMOGLOBIN 29.6 pg (25-34); MEAN CORPUSCULAR HGB CONC 33.1 g/dl (32-36); MEAN PLATELET VOLUME 9.6 fL (7.4-10.4); PLATELET COUNT 175 K/uL (130-400); RED BLOOD COUNT 3.68 M/uL (4.2-5.4)
[2016-08-01] MEDS: AMITRIPTYLINE HCL 25 MG TAB PO SCH (20:55)
[2016-08-01] MEDS: RANITIDINE HCL 150 MG TAB PO SCH (20:56)
[2016-08-01] MEDS: SIMVASTATIN 20 MG TAB PO SCH (20:56)
[2016-08-02] VITALS (12 sets, daily range): BP systolic 99–121; BP diastolic 62–80; PULSE 96–109; TEMP 36.6–37; O2SAT 91–96
[2016-08-02 06:11] LABS: BASO % 0.1 %; BASO ABS # 0.01 K/uL (0-0.2); COMPLETE YES; EOS % 0.1 %; HEMATOCRIT 29.5 % (37-47); IG% 0.3 %; LYMPH % 6.1 %; LYMPH ABS # 0.69 K/uL (1.2-3.4); MEAN CELL VOLUME 89.1 fL (80-100); MEAN CORPUSCULAR HEMOGLOBIN 29.3 pg (25-34); MEAN CORPUSCULAR HGB CONC 32.9 g/dl (32-36); MEAN PLATELET VOLUME 9.6 fL (7.4-10.4); MONO % 5.9 %; NEUT % 87.5 %; PLATELET COUNT 163 K/uL (130-400); RED BLOOD COUNT 3.31 M/uL (4.2-5.4)
[2016-08-02] MEDS: OXYCODONE HCL IR 5 MG TAB (IMMEDIATE RELEASE) PO PRN (06:39)
[2016-08-02] MEDS: ACETAMINOPHEN 325 MG TAB PO PRN (06:40)
[2016-08-02 06:46] LABS: BUN/CREATININE RATIO 16.9 (10-20); CALCIUM 8.6 mg/dl (8.5-10.1); CREATININE 0.7 mg/dl (0.60-1.20); PHOSPHORUS 2.8 mg/dl (2.5-4.9); POTASSIUM 4.3 mmol/L (3.5-5.1)
[2016-08-02] MEDS: LEVALBUTEROL 1.25MG/0.5ML NEB INH SCH ×3 (07:06→16:00)
[2016-08-02] MEDS: IPRATROPIUM BROMIDE NEB SOLN 0.02% 2.5 ML VIAL INH SCH ×3 (07:06→16:00)
[2016-08-02] MEDS: PANTOprazole SOD 40 MG TAB PO SCH (08:03)
[2016-08-02] MEDS: GABAPENTIN 300 MG CAP PO SCH ×2 (08:04→14:29)
[2016-08-02] MEDS: ENOXAPARIN 40 MG/0.4 ML SYR SQ SCH (08:04)
[2016-08-02] MEDS: LEVOFLOXACIN / D5W 750 MG in PREMIXED IN D5W 150 ML IV SCH (08:05)
[2016-08-02] MEDS: MULTIVITAMIN TAB PO SCH (08:05)
[2016-08-02] MEDS ORDERED: METOPROLOL SUCC 50MG EXT REL TAB PO SCH (09:00)
[2016-08-02] MEDS ORDERED: METOPROLOL SUCC 25MG EXT REL TAB PO SCH (09:00)
[2016-08-02] MEDS ORDERED: VANCOMYCIN TROUGH ONE (09:30)
[2016-08-02] MEDS ORDERED: LEVO1TAB35 PO (13:53)
[2016-08-02] MEDS ORDERED: METO-217 PO (13:53)
[2016-08-02] MEDS ORDERED: VNTHFA/IN INH (13:53)
[2016-08-02] MEDS ORDERED: MULT-589 PO (13:53)
[2016-08-02] MEDS: CEFTRIAXONE SOD INJ 1000 MG in DEXTROSE 5% 50ML IV SCH (14:29)
--- NOTE | 2016-08-02 15:51 | Discharge Instructions ---
Discharge Instructions Admission Reason for Admission: Pneumonia, Sepsis Discharge Discharge Diagnosis / Problem: Pneumonia, sepsis Discharge Goals Goal(s): Improve disease control, Therapeutic intervention Activity Recommendations Activity Limitations: as noted below Exercise/Sports Limitations: gradually increase as tolerated . Instructions / Follow-Up Instructions / Follow-Up You were admitted for a right sided pneumonia. Your blood pressure dropped to a very low level in the ER when you were being admitted which required placement of a central venous catheter and aggressive IV fluid hydration. You were admitted to the ICU overnight for persistent low blood pressures which improved by the next morning without having to use any special medications to bring up your blood pressure. You were given antibiotics for the pneumonia and made a fast recovery. No bacteria grew out of your blood cultures. Your urine grew out a small amount of bacteria that was considered to be insignificant. You were no longer requiring any oxygen even with ambulation on the day of discharge. You will need to finish out a course of an antibiotic called Levaquin. You will also need to have a repeat chest xray in 3-4 weeks to make sure your pneumonia is completely resolved. Your PCP can order this for you. Please keep your previously scheduled appointment with your PCP for this Thursday08/04/16. Current Hospital Diet Patient's current hospital diet: AHA Diet (Heart Healthy) Discharge Diet Recommended Diet: AHA Diet (Heart Healthy) Procedures Procedures Performed: Chest xray Pending Studies Studies pending at discharge: yes List of pending studies: Final Blood and Urine cultures Medical Emergencies . Who to Call and When: Medical Emergencies: If at any time you feel your situation is an emergency, please call 911 immediately. . Non-Emergent Contact Non-Emergency issues call your: Primary Care Provider Call Non-Emergent contact if: you have a fever, you have any medication questions If you have worsening shortness of breath, chest pains, or for any other acute concern, call your doctor or come immediately to the hospital. . . "Provider Documentation" section prepared by Daniela Nj. VTE Core Measure Inpt VTE Proph given/why not?: Unfractionated heparin HOLLAND, Mariano Lamb, SCD 's
--- NOTE | 2016-08-07 16:37 | Discharge Summary ---
Discharge Summary Date of Service Aug 02, 2016. Discharge Summary Admission Date: Jul 31, 2016 at 10:01 Discharge Date: Aug 02, 2016 Discharge Disposition: Home Principal Diagnosis: Pneumonia, Severe Sepsis,Acute hypoxemic respiratory failure Problems/Secondary Diagnoses: HTN HLD Chronic back pain Migraines GERD Leukocytosis Lactic acid elevated Hypomagnesemia Acute kidney insufficiency Hypokalemia Sinus tachycardia Immunizations: Have You Had Influenza Vaccine: No History of Tetanus Vaccine?: Yes History of Pneumococcal: No History of Hepatitis B Vaccine: Yes Procedures: CXR 07/31/16:Right lung airspace opacities consistent with pneumonia. Films subsequent to treatment are recommended in follow-up Venous Doppler RLE: Venous catheter is confirmed to be within the right common femoral vein CXR 08/01/16: Slight improvement in the right lung airspace opacities Consultations: Critical Care Medicine Medication Reconciliation New Medications: Levofloxacin (Levaquin) 750 Mg Tab 750 MG PO DAILY for 7 Days, #7 TAB Multivitamins (Daily Nomi) 1 Tab Tab 1 TAB PO QAM for 30 Days, #30 TAB Changed Medications: Albuterol Hfa (Ventolin Hfa) 200 Puffs/45774 Mcg Aers 2 PUFFS INH Q4 PRN for Shortness of Breath, #1 INHALER (Changed from: 1 PUFFS; UD) Metoprolol Succinate (Toprol Xl) 50 Mg Tabcr 25 MG PO DAILY, #30 TAB (Changed from: 50 MG) Continued Medications: Amitriptyline Hcl (Elavil) 25 Mg Tab 25 MG PO HS, TAB Gabapentin (Neurontin) 300 Mg Cap 600 MG PO TID, CAP Oxycodone Hcl (Oxycodone Hcl) 10 Mg Tab 1 TAB PO QID PRN for Pain for 30 Days, #120 TAB Pantoprazole (Protonix) 40 Mg Tab 40 MG PO DAILY, #30 TAB Ranitidine Hcl (Zantac) 300 Mg Tab 300 MG PO HS, TAB Simvastatin (Zocor) 20 Mg Tab 20 MG PO HS, TAB Tizanidine (Zanaflex) 4 Mg Cap 8 MG PO HS, CAP Referrals At Discharge Follow up Referrals: Physician Referral - 08/04/16 with Wilman Ardon PA-C Discharge Exam PHYSICAL EXAM: Vitals reviewed--> two step with POx> 88% with ambulation General Appearance: WD/WN, no apparent distress, + obese Eyes: normal inspection, PERRL, EOMI ENT: normal ENT inspection, hearing grossly normal, pharynx normal Neck: supple, no JVD, trachea midline Respiratory/Chest: normal breath sounds, no respiratory distress, crackles at right base and middle lung field Cardiovascular: no gallop, no murmur, RRR Abdomen: normal bowel sounds, non tender, soft Extremities: non-tender, normal inspection, no pedal edema Neurologic/Psychiatric: alert, normal mood/affect, oriented x 3 Skin: normal color, warm/dry, no rash Review of Systems: Constitutional: No chills, No fever Eyes: No problem reported ENT: No problem reported Respiratory: No cough, No dyspnea on exertion, No shortness of breath Cardiovascular: No chest pain Abdomen: No diarrhea, No nausea, No pain, No vomiting Musculoskeletal: No problem reported Genitourinary - Female: No problem reported Neurologic: No problem reported Psychiatric: No problem reported Endocrine: No problem reported Hematologic / Lymphatic: No problem reported Integumentary: No problem reported Hospital Course 56 y/o female with a history of HTN, HLD, chronic back pain, migraines, and GERD who presented to the ED on 07/31 with shortness of breath, fevers, weakness and fatigue. Patient had 2 recent falls due to weakness. Patient arrives to ED febrile with temperature of 39.4C, tachycardic with heart rate of 120s, and hypotensive with BP 98/62 on arrival. Patient's blood pressure did drop to 49/ 38 despite receiving fluids, but she also received Fentanyl and 1 gram of Magnesium just prior to the hypotensive episode. Central line was placed at that time. Patient has received a total of 4 L of normal saline boluses, but systolic blood pressure remained in 80s. Patient has an elevated WBC of 20.68. Rapid flu negative. Elevated creatinine above baseline at 1.3. Point- of-care lactic acid elevated at 2.43. Magnesium low at 1.5. CXR showed consolidation in mid to lower right lung consistent with pneumonia. EKG shows sinus tachycardia with no ischemic changes. Septic shock secondary to pneumonia-- fever, tachycardia, elevated WBC and PNA with hypotension. Pt markedly improved on 08/01 after overnight admission to ICU , no need for vasopressors. Transferred to telemetry on 08/01 due to significant improvement and has been stable. Femoral central line removed, no pressors were needed. -Vancomycin D/C'd, Zosyn switched to Rocephin, continue Levaquin after discharge for a 7 day course. -Repeat lactic acid was 1.2 -Repeat CXR shows marked improvement in right lung airspace opacities -follow CXR to resolution upon discharge in 3-4 weeks with PCP Acute kidney insufficiency--resolved. Baseline creatinine 0.8 -Creatinine on arrival 1.3 -Repeat creatinine on 08/01 was 0.78, back to baseline UA is contaminated sample and had GNRs growing but only 10k CFUs. Is on Levaquin regardless for PNA Hypomagnesemia-resolved after replacement Mild hypokalemia-resolved with replacement H/o HTN--BP low normal overnight, hypotensive here whcih improved overnight. Pt takes metoprolol succinate 50 mg PO qd at home -Restarted metoprolol succinate 25 mg and can increase as tolerated back to 50mg as outpatient at discretion of PCP HLD -Continue simvastatin 20 mg PO qd Chronic back pain -Continue gabapentin 600 mg PO TID -May resume oxycodone 10 mg PO q6h prn pain Migraines -Continue amitriptyline 25 mg PO qhs GERD -Continue Protonix 40 mg PO qd and Zantac 300 mg PO qhs DVT prophylaxis -Enoxaparin 40 mg SC q24h as renal function back to baseline -AURELIA Abdullahi Code Status -Level I, FULL RESUSCITATION STATUS Total Time Spent: Greater than 30 minutes This includes examination of the patient, discharge planning, medication reconciliation, and communication with other providers. Discharge Instructions Please refer to the electronic Patient Visit Report (Discharge Instructions) for additional information. Follow-Up PCP as scheduled on Friday 08/04 Additional Copies To Wilman Ardon PA-C
== END 2016-08-02 16:20 | disposition home or self-care (01) | DRG 871 ==
LOC: ENRESERVTM → ENRESERVDT → C.EDB 07:00 → C.MSICU 10:01 → UNDOADMIN 11:25 → C.MSICU 11:25 → C.2E 08-01 14:18
PROVIDERS: ADMIT Family Medicine; ATTEND Family Medicine
DX: A41.9 Sepsis, unspecified organism (principal); R65.21 Severe sepsis with septic shock; J18.9 Pneumonia, unspecified organism; J96.01 Acute respiratory failure with hypoxia; N17.9 Acute kidney failure, unspecified; E83.42 Hypomagnesemia; E87.6 Hypokalemia; R29.6 Repeated falls; I10 Essential (primary) hypertension; G89.29 Other chronic pain; E78.00 Pure hypercholesterolemia, unspecified; M54.9 Dorsalgia, unspecified; G43.909 Migraine, unspecified, not intractable, without status migrainosus; K21.9 Gastro-esophageal reflux disease without esophagitis; I87.8 Other specified disorders of veins; Z87.891 Personal history of nicotine dependence; Z79.891 Long term (current) use of opiate analgesic; Z79.899 Other long term (current) drug therapy

== ENCOUNTER → 2016-10-30 | Outpatient (CLI) | payer OTHER ==
[~2016-10-30] MED LIST changes: -ALBUAER19 INH; -FRS/40 PO; +MULT-589 PO; +OXYC-164 PO; -OXYC15TA89 PO; +VNTHFA/IN INH
--- NOTE | 2016-10-30 13:28 | DIAGNOSTIC IMAGING REPORT ---
ULTRASOUND-GUIDED LEFT LOBE THYROID NODULE FINE-NEEDLE ASPIRATION BIOPSY. CLINICAL HISTORY: Thyroid nodule outside ultrasound dated 10/14/2016 COMPARISON STUDY: No previous studies for comparison. FINDINGS: A timeout was performed. The risks the procedure were explained the patient and informed consent was obtained. The patient was prepped in sterile fashion. The skin was anesthetized 1% lidocaine. Under ultrasound guidance 2 passes with 25-gauge needle were performed into the dominant left lobe nodule containing calcifications. Initial pathologic review indicates satisfactory material for diagnosis. IMPRESSION: Successful ultrasound-guided fine-needle aspiration biopsy of the patient's dominant left lobe thyroid nodule. Electronically signed by: William Daniel M.D. 10/30/2016 1:27 PM Dictated Date/Time: 10/30/2016 1:25 PM
== END | disposition home or self-care (01) ==
LOC: C.ULTR 12:11
PROVIDERS: ATTEND Physician Assistant
DX: R94.6 Abnormal results of thyroid function studies (principal); Z04.1 Encounter for examination and observation following transport accident

== ENCOUNTER 2018-08-25 08:16 | Observation (INO) ==
[2018-08-25] MEDS ORDERED: CEFEPIME 2,000 MG in SYRINGE 7.5 ML IV STA (08:48)
[2018-08-25] MEDS ORDERED: ALBUT/IPRATROP 3MG/0.5MG NEB 3 ML VIAL NEB STA (08:48)
[2018-08-25] MEDS ORDERED: ACETAMINOPHEN 500 MG TAB PO STA (08:48)
[2018-08-25] MEDS ORDERED: SODIUM CHLORIDE 0.9% 1000ML 1,000 ML IV ONE (08:48)
[2018-08-25] MEDS ORDERED: KETOROLAC TROMETHAMINE 15 MG/ML VIAL IV STA (08:48)
[2018-08-25] MEDS ORDERED: ACETAMINOPHEN 500 MG TAB ONE (08:49)
[2018-08-25] MEDS ORDERED: methylPREDNISolone 60 MG in SYRINGE 1 ML IV STA (08:57)
[2018-08-25 09:06] LABS: Basophils # (auto) 0.02 K/uL (0-0.2); Basophils % (auto) 0.3 %; Eosinophils # (auto) 0.06 K/uL (0-0.5); Eosinophils % (auto) 0.8 %; Hematocrit (blood only) 41.7 % (37-47); Hemoglobin 13.4 g/dL (12.0-16.0); Immature Granulocytes # (auto) 0.01 K/uL (0.00-0.02); Immature Granulocytes % (auto) 0.1 %; Lymphocytes # (auto) 0.78 K/uL (1.2-3.4); Mean Corpuscular Hgb Conc 32.1 g/dL (32-36); Mean Corpuscular Volume 89.3 fL (80-100); Mean Platelet Volume 9.9 fL (7.4-10.4); Monocytes # (auto) 0.59 K/uL (0.11-0.59); Monocytes % (auto) 7.6 %; Neutrophils # (auto) 6.35 K/uL (1.4-6.5); Neutrophils % (auto) 81.2 %; Platelet Count 225 K/uL (130-400); RDW Coefficient of Variation 12.4 % (11.5-14.5); RDW Standard Deviation 39.9 fL (36.4-46.3); Red Blood Count 4.67 M/uL (4.2-5.4); White Blood Count 7.81 K/uL (4.8-10.8)
[2018-08-25 09:13] LABS: Alanine Aminotransferase 20 U/L (12-78); Albumin Level 3.6 gm/dl (3.4-5.0); Aspartate Aminotransferase 18 U/L (15-37); BUN Creatinine Ratio 7.2 (10-20); Blood Urea Nitrogen 10 mg/dl (7-18); Calcium 8.5 mg/dl (8.5-10.1); Carbon Dioxide 32 mmol/L (21-32); Chloride 102 mmol/L (98-107); Est GFR (African American) 49.8; Glucose 107 mg/dl (70-99); Magnesium 1.9 mg/dl (1.8-2.4); Potassium 3.8 mmol/L (3.5-5.1); Sodium 137 mmol/L (136-145)
[2018-08-25 09:15] LABS: Partial Thromboplastin Ratio 1.1; Partial Thromboplastin Time 28.8 Seconds (21.0-31.0); Prothrombin Time 10.5 Seconds (9.0-12.0)
[2018-08-25 09:18] LABS: Albumin Globulin Ratio 0.9 (0.9-2); Alkaline Phosphatase 125 U/L (45-117); Bilirubin,Total 0.3 mg/dl (0.2-1); Globulin 4.2 gm/dl (2.5-4.0); Total Protein 7.8 gm/dl (6.4-8.2); Troponin I < 0.015 ng/ml (0-0.045)
--- NOTE | 2018-08-25 09:21 | XRay Report ---
XR chest 1V portable CLINICAL HISTORY: Sepsis COMPARISON STUDY: Chest radiograph August 01, 2016. Chest CT February 02, 2018. FINDINGS: The lung volumes are normal. There is no pneumothorax or pleural effusion. No consolidation or evidence for pulmonary edema. Cardiomediastinal silhouette is unremarkable. IMPRESSION: No acute cardiopulmonary findings. Electronically signed by: Hector Ferrera M.D. 08/25/2018 9:20 AM
[2018-08-25 09:38] LABS: Appearance Urine Clear (Clear); Bilirubin Urine Negative (Negative); Blood Urine Negative (Negative); Color Urine Yellow; Glucose Urine UA Negative (Negative); Ketones Urine Negative (Negative); Leukocyte Esterase Urine Negative (Negative); Nitrite Urine Negative (Negative); Protein Urine Negative (Negative); Urobilinogen Urine Negative (Negative); pH Urine 5.5 (4.5-7.5)
[2018-08-25 09:47] LABS: Influenza A virus by PCR Neg for Influ A (Neg); Influenza B virus by PCR Neg for Influ B (Neg)
--- NOTE | 2018-08-25 10:38 | History & Physical Report ---
Date of Service August 25, 2018 Assessment & Plan (1) Asthma: Acute exacerbation of asthma. Patient feels better. No respiratory distress at present. Adequate oxygenation on room air -Admit to medical floor -Albuterol neb q 6 hours scheduled and q 2 hours as needed for SOB/wheeze -Doxycycline 100mg po BID -Solumedrol 60mg IV q 12 hours -Continue to monitor (2) Tachycardia: Mild elevation in heart rate in setting of acute exacerbation of asthma, Albuterol administration. Sinus rhythm -Conitnue to monitor (3) Hypoxia: Improved with supplemental O2 -Continue supplemental O2 as needed (4) Fever: No obvious PNA noted on CXR. Presently afebrile. Possible bronchitis as infectious source. Patient given a dose of Cefepime in ER -Doxycycline 100mg po BID -Tylenol as needed -Follow cultures (5) Hyperlipidemia: Chronic -Continue Simvastatin daily (6) Hypertension: Blood pressure well controlled at present -Continue to monitor (7) GERD (gastroesophageal reflux disease): Chronic. Stable -Continue Protonix daily F/E/N - NSS x 2 liters, monitor electrolytes and replete as needed, PO as tolerated Ppx - heparin for DVT prophylaxis Code - Full Dispo -254-1 History of Present Illness Chief Complaint: shortness of breath Primary Care Provider: Wilman Ardon Krystin Jaffe is a pleasant 58yo C female with history of asthma, HTN, HLP, GERD presenting with SOB. Patient reports MORAN/SOB and productive cough which began approximately 1 week ago. Symptoms have been progressive. She has been taking her inhalers, Symbicort and Albuterol with no improvement. Patient denies CP/palpitations. She does report some mildly increased LE edema, L>R in leg with prior injury. Stable orthopnea. Also with 40# unintentional weight loss over the last year, denies dietary changes. Patient with prior history of smoking. 1ppd x 26 years. Quit 14 year ago. She reports she was given a diagnosis of COPD in the past based on symptoms and history. She follows with [facility] and was last seen 16 June 2018. She had PFTs performed on 05/07/18 which revealed severe obstructive lung defect. Mild decrease in diffusing capacity. Good response to bronchodilators. FVC changed by 15%, FEV1 changed by 29%, FEF 25-75 changted by 35%. Patient also with LALO, she has CPAP at home which she tries to be compliant with but often does not use it through the night. She did receive a flu shot this year. ER Course: Tylenol 1000mg, Albuterol 3ml, Cefepime 2gm, Toradol 15mg, Solumedrol 60mg, NSS x 1L Allergies Allergy/AdvReac Type Severity Reaction Status Date / Time No Known Allergies Allergy Unverified 08/25/18 09:05 Home Medications Home Medications Medication Instructions Recorded Confirmed Type amitriptyline 50 mg PO DAILY 08/25/18 08/25/18 History cholecalciferol (vitamin D3) 1,000 unit PO DAILY 08/25/18 08/25/18 History [Vitamin D3] furosemide 40 mg PO QAM 08/25/18 08/25/18 History gabapentin 600 mg PO TID 08/25/18 08/25/18 History multivitamin 1 tab PO DAILY 08/25/18 08/25/18 History pantoprazole 40 mg PO DAILY 08/25/18 08/25/18 History potassium chloride 20 meq PO DAILY 08/25/18 08/25/18 History ranitidine HCl 300 mg PO DAILY 08/25/18 08/25/18 History simvastatin 20 mg PO PM 08/25/18 08/25/18 History tizanidine 4 mg PO HS PRN 08/25/18 08/25/18 History topiramate 200 mg PO DAILY 08/25/18 08/25/18 History Past Med/Surg History Medical History Asthma (Chronic) Acute bronchitis (Resolved) Hypertension (Chronic) Hyperlipidemia (Chronic) GERD (gastroesophageal reflux disease) (Chronic) Chronic low back pain (Chronic) Pneumonia (Resolved) Surgical History History of appendectomy (Resolved) Social History Preferred Language: Sudanese Communication Ability: Effective Beliefs That Will Affect Care: None Current Living Situation: Spouse Other Information That Helps Us Care for You: No Feels Safe at Home: Yes Safety Concerns: Feels Safe At This Time Smoking Status: Former smoker Hx Alcohol Use: No Hx Substance Use: No Review of Systems All systems reviewed & are unremarkable except as noted in HPI & below Physical Exam Vital Signs (Past 24 Hours): Last Vital Signs Temp 37.4 C 08/25/18 09:47 Pulse 111 H 08/25/18 10:01 Resp 27 H 08/25/18 10:01 BP 106/71 08/25/18 10:01 Pulse Ox 99 08/25/18 10:01 Physical Exam: General: patient resting comfortably, NAD, non-toxic in appearance, AA&O x 4 Skin: warm, dry, intact, no rashes or lesions, chronic skin changes in LLE HEENT: NC/AT, PERRL, EOMI, anicteric sclera, conjunctiva without injection, external ear normal to inspection and nontender, nares patent, dry mucus membranes, dentition intact, no oropharyngeal lesions, neck supple, trachea midline, no LAD, no thyromegaly, no JVD Heart: +S1/S2, regular, no m/r/g Lungs: equal air entry bilaterally, prolonged expiratory phases, diffuse wheezing bilaterally Abd: +BS, soft, NT/ND, no masses/organomegaly/ascites Ext: warm, 2+ pulses in UE/LE bilaterally, no clubbing/cyanosis or edema Neuro: nonfocal, patient AA&O x 4, speech intact, no facial droop, moving all extremities on command with equal strength 5/5 Results & Data Laboratory Results Lab Results 08/25/18 08/25/18 08/25/18 Range/Units 08:40 08:40 08:40 WBC 7.81 (4.8-10.8) K/uL RBC 4.67 (4.2-5.4) M/uL Hgb 13.4 (12.0-16.0) g/dL Hct 41.7 (37-47) % MCV 89.3 (80-100) fL MCH 28.7 (25-34) pg MCHC 32.1 (32-36) g/dL RDW Std Deviation 39.9 (36.4-46.3) fL RDW Coeff of Dougie 12.4 (11.5-14.5) % Plt Count 225 (130-400) K/uL MPV 9.9 (7.4-10.4) fL Immature Gran % (Auto) 0.1 % Neut % (Auto) 81.2 % Lymph % (Auto) 10.0 % Brewster % (Auto) 7.6 % Eos % (Auto) 0.8 % Baso % (Auto) 0.3 % Immature Gran # (Auto) 0.01 (0.00-0.02) K/uL Neut # (Auto) 6.35 (1.4-6.5) K/uL Lymph # (Auto) 0.78 L (1.2-3.4) K/uL Brewster # (Auto) 0.59 (0.11-0.59) K/uL Eos # (Auto) 0.06 (0-0.5) K/uL Baso # (Auto) 0.02 (0-0.2) K/uL PT 10.5 (9.0-12.0) Seconds INR 1.0 (0.9-1.1) APTT 28.8 (21.0-31.0) Seconds PTT Ratio 1.1 Sodium 137 (136-145) mmol/L Potassium 3.8 (3.5-5.1) mmol/L Chloride 102 (98-107) mmol/L Carbon Dioxide 32 (21-32) mmol/L Anion Gap 3.0 (3-11) BUN 10 (7-18) mg/dl Creatinine 1.37 H (0.6-1.2) mg/dl Est Cr Clr Drug Dosing 52.0 ml/min Est GFR ( Amer) 49.8 Est GFR (Non-Af Amer) 43.0 BUN/Creatinine Ratio 7.2 L (10-20) Glucose 107 H (70-99) mg/dl POC Lactic Acid Maco (0.90-1.70) mmol/L Calcium 8.5 (8.5-10.1) mg/dl Magnesium 1.9 (1.8-2.4) mg/dl Total Bilirubin 0.3 (0.2-1) mg/dl AST 18 (15-37) U/L ALT 20 (12-78) U/L Alkaline Phosphatase 125 H (45-117) U/L Troponin I < 0.015 (0-0.045) ng/ml Total Protein 7.8 (6.4-8.2) gm/dl Albumin 3.6 (3.4-5.0) gm/dl Globulin 4.2 H (2.5-4.0) gm/dl Albumin/Globulin Ratio 0.9 (0.9-2) Urine Color Urine Appearance (Clear) Urine pH (4.5-7.5) Ur Specific Dillon (1.000-1.030) Urine Protein (Negative) Urine Glucose (UA) (Negative) Urine Ketones (Negative) Urine Blood (Negative) Urine Nitrite (Negative) Urine Bilirubin (Negative) Urine Urobilinogen (Negative) Ur Leukocyte Esterase (Negative) Influenza Type A (PCR) (Neg) Influenza Type B (PCR) (Neg) 08/25/18 08/25/18 08/25/18 Range/Units 08:40 08:48 09:26 WBC (4.8-10.8) K/uL RBC (4.2-5.4) M/uL Hgb (12.0-16.0) g/dL Hct (37-47) % MCV (80-100) fL MCH (25-34) pg MCHC (32-36) g/dL RDW Std Deviation (36.4-46.3) fL RDW Coeff of Dougie (11.5-14.5) % Plt Count (130-400) K/uL MPV (7.4-10.4) fL Immature Gran % (Auto) % Neut % (Auto) % Lymph % (Auto) % Brewster % (Auto) % Eos % (Auto) % Baso % (Auto) % Immature Gran # (Auto) (0.00-0.02) K/uL Neut # (Auto) (1.4-6.5) K/uL Lymph # (Auto) (1.2-3.4) K/uL Brewster # (Auto) (0.11-0.59) K/uL Eos # (Auto) (0-0.5) K/uL Baso # (Auto) (0-0.2) K/uL PT (9.0-12.0) Seconds INR (0.9-1.1) APTT (21.0-31.0) Seconds PTT Ratio Sodium (136-145) mmol/L Potassium (3.5-5.1) mmol/L Chloride (98-107) mmol/L Carbon Dioxide (21-32) mmol/L Anion Gap (3-11) BUN (7-18) mg/dl Creatinine (0.6-1.2) mg/dl Est Cr Clr Drug Dosing ml/min Est GFR ( Amer) Est GFR (Non-Af Amer) BUN/Creatinine Ratio (10-20) Glucose (70-99) mg/dl POC Lactic Acid Maco 0.96 (0.90-1.70) mmol/L Calcium (8.5-10.1) mg/dl Magnesium (1.8-2.4) mg/dl Total Bilirubin (0.2-1) mg/dl AST (15-37) U/L ALT (12-78) U/L Alkaline Phosphatase (45-117) U/L Troponin I (0-0.045) ng/ml Total Protein (6.4-8.2) gm/dl Albumin (3.4-5.0) gm/dl Globulin (2.5-4.0) gm/dl Albumin/Globulin Ratio (0.9-2) Urine Color Yellow Urine Appearance Clear (Clear) Urine pH 5.5 (4.5-7.5) Ur Specific Dillon 1.010 (1.000-1.030) Urine Protein Negative (Negative) Urine Glucose (UA) Negative (Negative) Urine Ketones Negative (Negative) Urine Blood Negative (Negative) Urine Nitrite Negative (Negative) Urine Bilirubin Negative (Negative) Urine Urobilinogen Negative (Negative) Ur Leukocyte Esterase Negative (Negative) Influenza Type A (PCR) Neg for Influ A (Neg) Influenza Type B (PCR) Neg for Influ B (Neg) Diagnostic Findings XR chest 1V portable CLINICAL HISTORY: Sepsis COMPARISON STUDY: Chest radiograph August 01, 2016. Chest CT February 02, 2018. FINDINGS: The lung volumes are normal. There is no pneumothorax or pleural effusion. No consolidation or evidence for pulmonary edema. Cardiomediastinal silhouette is unremarkable. IMPRESSION: No acute cardiopulmonary findings. Electronically signed by: Hector Ferrera M.D. 08/25/2018 9:20 AM Dictated: 08/25/18918 Transcribed: 08/25/18918 ECG Additional Comments: ST at 105bpm, normal axis, MA =160, QRS=80, RKc=046, no acute ischemic changes Code Status & VTE Plan Code Status Full VTE Prophylaxis Plan VTE Prophylaxis will be ordered: Yes Critical Care Time Critical Care Time: No (1) Fever Fever type: unspecified Qualified Code(s): R50.9 - Fever, unspecified
--- NOTE | 2018-08-25 11:11 | Emergency Department Note ---
Entered by Eugenie Gannon acting as a scribe for History of Present Illness General Chief complaint: Cough Stated complaint: COUGH,CHILLS,FEVER Time Seen by Provider: 08/25/18 08:42 Source: patient History of Present Illness Provider complaint: cough Onset (ago): day(s) 4 Location: chest Pain Consistency: + other (persistent) Maximum Pain Intensity: 8 Quality: + other (cough) Associated symptoms: + other (shortness of breath, fever, chills, abdominal pain. Denies: nausea, vomiting, diarrhea) The patient is a 58 year old female who presents to the Emergency Room with complaints of a persistent cough beginning 4 days ago. She states her cough is both productive and dry at times, and she is short of breath when coughing. The patient states her cough precluded her from finishing dinner or being able to sleep last night. She reports a fever and chills. The patient notes abdominal pain. She denies nausea, vomiting, or diarrhea. The patient states she has been drinking a lot of water. She is a former smoker and notes a history of asthma, bronchitis, and pneumonia. The patient uses an inhaler and CPAP at night, and no oxygen at home. Home Medications Home Medications Medication Instructions Recorded Confirmed Type amitriptyline 50 mg PO DAILY 08/25/18 08/25/18 History cholecalciferol (vitamin D3) 1,000 unit PO DAILY 08/25/18 08/25/18 History [Vitamin D3] furosemide 40 mg PO QAM 08/25/18 08/25/18 History gabapentin 600 mg PO TID 08/25/18 08/25/18 History multivitamin 1 tab PO DAILY 08/25/18 08/25/18 History pantoprazole 40 mg PO DAILY 08/25/18 08/25/18 History potassium chloride 20 meq PO DAILY 08/25/18 08/25/18 History ranitidine HCl 300 mg PO DAILY 08/25/18 08/25/18 History simvastatin 20 mg PO PM 08/25/18 08/25/18 History tizanidine 4 mg PO HS PRN 08/25/18 08/25/18 History topiramate 200 mg PO DAILY 08/25/18 08/25/18 History Allergies Allergy/AdvReac Type Severity Reaction Status Date / Time No Known Allergies Allergy Unverified 08/25/18 09:05 Past Med/Surg History Medical History Asthma (Chronic) Acute bronchitis (Resolved) Hypertension (Chronic) Hyperlipidemia (Chronic) GERD (gastroesophageal reflux disease) (Chronic) Chronic low back pain (Chronic) Pneumonia (Resolved) Surgical History History of appendectomy (Resolved) Social History Preferred Language: Portuguese Communication Ability: Effective Beliefs That Will Affect Care: None Current Living Situation: Spouse Other Information That Helps Us Care for You: No Feels Safe at Home: Yes Safety Concerns: Feels Safe At This Time Smoking Status: Former smoker Hx Alcohol Use: No Hx Substance Use: No Review of Systems See HPI for pertinent positives & negatives. and A total of 10 systems reviewed and were otherwise negative Physical Exam Vital Signs Vital Signs - 24 hr 08/25/18 08:26 08/25/18 08:42 08/25/18 09:01 Temperature 39 C H Temperature Source Oral Sepsis Recent Fever Within 48 Hours Yes Sepsis New/Unexplained Change in Mental Status No Sepsis Action Taken by Nursing No Action Required Pulse Rate 114 H 108 H 107 H Pulse Rate [Left Radial] Pulse Rate from SpO2 Sensor 110 H 106 H Respiratory Rate 18 28 H 30 H Respiratory Effort / Characteristics Respiratory Depth Respiratory Pattern Blood Pressure 113/68 125/84 131/82 Blood Pressure [Left Arm] Blood Pressure Mean 83 97 98 Blood Pressure Mean [Left Arm] Blood Pressure Position [Left Arm] Pulse Oximetry 80 L 94 100 Oxygen Delivery Method Room Air Room Air Nebulizer Oxygen Flow Rate 08/25/18 09:18 08/25/18 09:47 08/25/18 10:00 Temperature 37.4 C Temperature Source Oral Sepsis Recent Fever Within 48 Hours Sepsis New/Unexplained Change in Mental Status Sepsis Action Taken by Nursing Pulse Rate Pulse Rate [Left Radial] Pulse Rate from SpO2 Sensor Respiratory Rate Respiratory Effort / Characteristics Non-Labored Spontaneous Short of Breath SOB on Exertion Respiratory Depth Normal Respiratory Pattern Regular Blood Pressure Blood Pressure [Left Arm] Blood Pressure Mean Blood Pressure Mean [Left Arm] Blood Pressure Position [Left Arm] Pulse Oximetry 97 Oxygen Delivery Method Nasal Cannula Nasal Cannula Oxygen Flow Rate 2 2 08/25/18 10:01 08/25/18 11:11 08/25/18 11:30 Temperature Temperature Source Sepsis Recent Fever Within 48 Hours Sepsis New/Unexplained Change in Mental Status Sepsis Action Taken by Nursing Pulse Rate 111 H 98 H 97 H Pulse Rate [Left Radial] Pulse Rate from SpO2 Sensor 111 H 99 H 99 H Respiratory Rate 27 H 19 21 Respiratory Effort / Characteristics Respiratory Depth Respiratory Pattern Blood Pressure 106/71 107/63 111/68 Blood Pressure [Left Arm] Blood Pressure Mean 82 77 82 Blood Pressure Mean [Left Arm] Blood Pressure Position [Left Arm] Pulse Oximetry 99 97 99 Oxygen Delivery Method Nasal Cannula Oxygen Flow Rate 2 2 08/25/18 12:22 Temperature 36.8 C Temperature Source Oral Sepsis Recent Fever Within 48 Hours Sepsis New/Unexplained Change in Mental Status Sepsis Action Taken by Nursing Pulse Rate Pulse Rate [Left Radial] 96 H Pulse Rate from SpO2 Sensor Respiratory Rate 20 Respiratory Effort / Characteristics Respiratory Depth Respiratory Pattern Blood Pressure Blood Pressure [Left Arm] 108/69 Blood Pressure Mean Blood Pressure Mean [Left Arm] 82 Blood Pressure Position [Left Arm] Lying Pulse Oximetry 93 Oxygen Delivery Method Nasal Cannula Oxygen Flow Rate 2 GENERAL: Patient is in no acute distress. HEENT: No acute trauma, normocephalic atraumatic, mucous membranes moist, no nasal congestion, no scleral icterus. NECK: No stridor, no adenopathy, no meningismus, trachea is midline. LUNGS: Dry cough. Increased respiratory rate. Wheezing bilaterally. Diminished breath sounds bilaterally. HEART: Tachycardic with a regular rhythm, no murmurs. ABDOMEN: Soft, nontender, bowel sounds positive, no hernias, no peritonitis. EXTREMITIES: No cyanosis, full range of motion of all the joints without pain or difficulty, no signs for acute trauma. Mild bilateral pedal edema. NEUROLOGIC: Oriented x 3, no acute motor or sensory deficits, no focal weakness. SKIN: No rash, no jaundice, no diaphoresis. Course 0843: Past medical records reviewed. The patient was evaluated in room C10, and a complete history and physical examination were performed. 0941: I reviewed the patient's case with Sean Luis PA-C, [facility] hospitalist. He will evaluate the patient for further management. 0949: Upon reevaluation, the patient is resting. I discussed test results. They verbalized agreement with the treatment plan. Consultations Consultation #1: Sean Luis PA-C, [facility] hospitalist Time: 09:41 Administered Medications Amitriptyline HCl (Elavil) 50 mg PO DAILY JESSENIA Stop: 09/24/18 12:21 Last Admin: 08/25/18 13:59 Dose: 50 mg Documented by: [id number] Gabapentin (Neurontin) 600 mg PO TID JESSENIA Stop: 09/24/18 13:59 Last Admin: 08/25/18 13:59 Dose: 600 mg Documented by: [id number] Sodium Chloride (Nss 1000ml) 1,000 mls @ 125 mls/hr IV .Q8H JESSENIA Stop: 08/26/18 04:59 Last Admin: 08/25/18 13:56 Dose: 125 mls/hr Documented by: [id number] Multivitamins (Multivitamin Tab) 1 tab PO DAILY JESSENIA Stop: 09/24/18 12:21 Last Admin: 08/25/18 13:59 Dose: 1 tab Documented by: [id number] Pantoprazole Sodium (Protonix) 40 mg PO DAILY JESSENIA Stop: 09/24/18 12:21 Last Admin: 08/25/18 13:58 Dose: 40 mg Documented by: [id number] Potassium Chloride (Klor-Con M20) 20 meq PO DAILY JESSENIA Stop: 09/24/18 12:21 Last Admin: 08/25/18 13:59 Dose: 20 meq Documented by: [id number] Ranitidine HCl (Zantac) 300 mg PO DAILY JESSENIA Stop: 09/24/18 12:21 Last Admin: 08/25/18 13:59 Dose: 300 mg Documented by: [id number] Topiramate (Topamax) 200 mg PO DAILY JESSENIA Stop: 09/24/18 12:21 Last Admin: 08/25/18 13:58 Dose: 200 mg Documented by: [id number] Vitamin D (Vitamin D3) 1,000 units PO DAILY JESSENIA Stop: 09/24/18 12:21 Last Admin: 08/25/18 13:59 Dose: 1,000 units Documented by: [id number] Discontinued Medications Acetaminophen (Tylenol) Confirm Administered Dose 1,000 mg .ROUTE .STK-MED ONE Stop: 08/25/18 08:50 Last Admin: 08/25/18 08:51 Dose: 1,000 mg Documented by: [id number] Acetaminophen (Tylenol) 1,000 mg PO NOW STA Stop: 08/25/18 08:49 Last Admin: 08/25/18 09:13 Dose: Not Given Documented by: [id number] Albuterol (Duoneb) 3 ml NEB NOW STA Stop: 08/25/18 08:49 Last Admin: 08/25/18 09:12 Dose: 3 ml Documented by: [id number] Cefepime HCl 2,000 mg/ Syringe 20 mls @ 5.5 mls/min IV NOW STA Stop: 08/25/18 08:51 Last Admin: 08/25/18 09:42 Dose: 5.5 mls/min Documented by: [id number] Sodium Chloride (Nss 1000ml) 1,000 mls @ 999 mls/hr IV .Q1H1M ONE Stop: 08/25/18 09:48 Last Infusion: 08/25/18 12:28 Dose: 0 mls/hr Documented by: [id number] Admin: 08/25/18 09:12 Dose: 999 mls/hr Documented by: [id number] Methylprednisolone 60 mg/ (Syringe) 1.96 mls @ 1.5 mls/min IV NOW STA Stop: 08/25/18 08:58 Last Admin: 08/25/18 09:42 Dose: 1.5 mls/min Documented by: [id number] Ketorolac Tromethamine (Toradol) 15 mg IV NOW STA Stop: 08/25/18 08:49 Last Admin: 08/25/18 09:12 Dose: 15 mg Documented by: [id number] Medical Decision Making Differential Diagnosis Differential Diagnosis includes: Sepsis or bacteremia, influenza or flu-like illness, bronchitis or pneumonia, dehydration, UTI, electrolyte imbalance, anemia. Medical Records Attestation: I reviewed the patient's medical records. Home Medications Current Medication List: was personally reviewed by me Laboratory Data Attestation: I reviewed the patient's lab results. Result diagrams: 08/25/18 08:40 08/25/18 08:40 Lab Results 08/25/18 08/25/18 08/25/18 Range/Units 08:40 08:40 08:40 WBC 7.81 (4.8-10.8) K/uL RBC 4.67 (4.2-5.4) M/uL Hgb 13.4 (12.0-16.0) g/dL Hct 41.7 (37-47) % MCV 89.3 (80-100) fL MCH 28.7 (25-34) pg MCHC 32.1 (32-36) g/dL RDW Std Deviation 39.9 (36.4-46.3) fL RDW Coeff of Dougie 12.4 (11.5-14.5) % Plt Count 225 (130-400) K/uL MPV 9.9 (7.4-10.4) fL Immature Gran % (Auto) 0.1 % Neut % (Auto) 81.2 % Lymph % (Auto) 10.0 % [place] % (Auto) 7.6 % Eos % (Auto) 0.8 % Baso % (Auto) 0.3 % Immature Gran # (Auto) 0.01 (0.00-0.02) K/uL Neut # (Auto) 6.35 (1.4-6.5) K/uL Lymph # (Auto) 0.78 L (1.2-3.4) K/uL [place] # (Auto) 0.59 (0.11-0.59) K/uL Eos # (Auto) 0.06 (0-0.5) K/uL Baso # (Auto) 0.02 (0-0.2) K/uL PT 10.5 (9.0-12.0) Seconds INR 1.0 (0.9-1.1) APTT 28.8 (21.0-31.0) Seconds PTT Ratio 1.1 Sodium 137 (136-145) mmol/L Potassium 3.8 (3.5-5.1) mmol/L Chloride 102 (98-107) mmol/L Carbon Dioxide 32 (21-32) mmol/L Anion Gap 3.0 (3-11) BUN 10 (7-18) mg/dl Creatinine 1.37 H (0.6-1.2) mg/dl Est Cr Clr Drug Dosing 52.0 ml/min Est GFR ( Amer) 49.8 Est GFR (Non-Af Amer) 43.0 BUN/Creatinine Ratio 7.2 L (10-20) Glucose 107 H (70-99) mg/dl POC Lactic Acid Maco (0.90-1.70) mmol/L Calcium 8.5 (8.5-10.1) mg/dl Magnesium 1.9 (1.8-2.4) mg/dl Total Bilirubin 0.3 (0.2-1) mg/dl AST 18 (15-37) U/L ALT 20 (12-78) U/L Alkaline Phosphatase 125 H (45-117) U/L Troponin I < 0.015 (0-0.045) ng/ml Total Protein 7.8 (6.4-8.2) gm/dl Albumin 3.6 (3.4-5.0) gm/dl Globulin 4.2 H (2.5-4.0) gm/dl Albumin/Globulin Ratio 0.9 (0.9-2) Urine Color Urine Appearance (Clear) Urine pH (4.5-7.5) Ur Specific [place] (1.000-1.030) Urine Protein (Negative) Urine Glucose (UA) (Negative) Urine Ketones (Negative) Urine Blood (Negative) Urine Nitrite (Negative) Urine Bilirubin (Negative) Urine Urobilinogen (Negative) Ur Leukocyte Esterase (Negative) Influenza Type A (PCR) (Neg) Influenza Type B (PCR) (Neg) 08/25/18 08/25/18 08/25/18 Range/Units 08:40 08:48 09:26 WBC (4.8-10.8) K/uL RBC (4.2-5.4) M/uL Hgb (12.0-16.0) g/dL Hct (37-47) % MCV (80-100) fL MCH (25-34) pg MCHC (32-36) g/dL RDW Std Deviation (36.4-46.3) fL RDW Coeff of Dougie (11.5-14.5) % Plt Count (130-400) K/uL MPV (7.4-10.4) fL Immature Gran % (Auto) % Neut % (Auto) % Lymph % (Auto) % [place] % (Auto) % Eos % (Auto) % Baso % (Auto) % Immature Gran # (Auto) (0.00-0.02) K/uL Neut # (Auto) (1.4-6.5) K/uL Lymph # (Auto) (1.2-3.4) K/uL [place] # (Auto) (0.11-0.59) K/uL Eos # (Auto) (0-0.5) K/uL Baso # (Auto) (0-0.2) K/uL PT (9.0-12.0) Seconds INR (0.9-1.1) APTT (21.0-31.0) Seconds PTT Ratio Sodium (136-145) mmol/L Potassium (3.5-5.1) mmol/L Chloride (98-107) mmol/L Carbon Dioxide (21-32) mmol/L Anion Gap (3-11) BUN (7-18) mg/dl Creatinine (0.6-1.2) mg/dl Est Cr Clr Drug Dosing ml/min Est GFR ( Amer) Est GFR (Non-Af Amer) BUN/Creatinine Ratio (10-20) Glucose (70-99) mg/dl POC Lactic Acid Maco 0.96 (0.90-1.70) mmol/L Calcium (8.5-10.1) mg/dl Magnesium (1.8-2.4) mg/dl Total Bilirubin (0.2-1) mg/dl AST (15-37) U/L ALT (12-78) U/L Alkaline Phosphatase (45-117) U/L Troponin I (0-0.045) ng/ml Total Protein (6.4-8.2) gm/dl Albumin (3.4-5.0) gm/dl Globulin (2.5-4.0) gm/dl Albumin/Globulin Ratio (0.9-2) Urine Color Yellow Urine Appearance Clear (Clear) Urine pH 5.5 (4.5-7.5) Ur Specific Sanborn 1.010 (1.000-1.030) Urine Protein Negative (Negative) Urine Glucose (UA) Negative (Negative) Urine Ketones Negative (Negative) Urine Blood Negative (Negative) Urine Nitrite Negative (Negative) Urine Bilirubin Negative (Negative) Urine Urobilinogen Negative (Negative) Ur Leukocyte Esterase Negative (Negative) Influenza Type A (PCR) Neg for Influ A (Neg) Influenza Type B (PCR) Neg for Influ B (Neg) Imaging Data Radiologist's Impression: Radiology results as stated below per my review and the radiologist's interpretation: XR chest 1V portable CLINICAL HISTORY: Sepsis COMPARISON STUDY: Chest radiograph August 01, 2016. Chest CT February 02, 2018. FINDINGS: The lung volumes are normal. There is no pneumothorax or pleural effusion. No consolidation or evidence for pulmonary edema. Cardiomediastinal silhouette is unremarkable. IMPRESSION: No acute cardiopulmonary findings. Electronically signed by: Hector Ferrera M.D. 08/25/2018 9:20 AM ECG Data Attestation: I personally reviewed and interpreted this ECG as follows: Indication: SOB/dyspnea Rate (beats per minute): 105 Rhythm: sinus tachycardia Findings: no PVC and no ST elevation Blood Pressure Blood Pressure Findings: Normal blood pressure Blood Pressure Disposition: did not require urgent referral MDM Narrative There is no leukocytosis or worrisome anemia. No coagulopathy. No significant electrolyte abnormality, kidney failure or hepatitis. Urinalysis did not show evidence for infection. Influenza testing was negative. Chest film did not sh ow pneumonia or CHF. Lactic acid level was not significantly elevated, this makes severe sepsis less likely. EKG showed a sinus tachycardia, no acute ischemia. Cardiac enzyme testing x1 is not consistent with acute cardiac injury. Blood cultures are pending. The patient received IV saline, oral Tylenol, IV Toradol. She was given an albuterol nebulizer, she received IV Solu-Medrol and IV cefepime. The patient presents with criteria for sepsis. She was wheezing on exam and seemed short of breath, she was hypoxic. The patient does seem improved since the above treatment, she seems more c omfortable in the room. She does require a hospital stay. At this point, she appears to have a flulike illness resulting in a bronchitis and hypoxia. Again, she did meet criteria for sepsis upon arrival. I did speak to the patient and vocational case manager. The on-call hospitalist was consulted. Impression & Plan Sepsis, Tachycardia, Hypoxia, Fever Critical Care Time I have personally spent greater than 35 minutes of critical care time in the direct management of this patient. This includes bedside care, interpretation of diagnostic studies, and testing, discussion with consultants, patient, and family members, and other required patient management activities. This 35 minutes is in excess of all separately billable procedures. Critical Care Time: Yes Total Critical Care Time: 35 Discharge Plan Visit Data *Final* Discharge Date/Time: 08/25/18 11:47 Chief Complaint: Cough Stated Complaint: COUGH,CHILLS,FEVER ED Provider: Sean Eng Discharge Problem: Sepsis, Tachycardia, Hypoxia, Fever Patient Disposition: Admitted As Inpatient Discharge Instructions Interventions: ED Discharge Assessment Last Done: 08/25/18 11:47 Discharge Problem: Sepsis Qualifiers: Sepsis type: sepsis due to unspecified organism Qualified Code(s): A41.9 - Sepsis, unspecified organism Fever Qualifiers: Fever type: unspecified Qualified Code(s): R50.9 - Fever, unspecified The scribe's documentation has been prepared under my direction and personally reviewed by me in its entirety. I confirm that the note above accurately reflects all work, treatment, procedures, and medical decision making performed by me.
[2018-08-25] MEDS ORDERED: ONDANSETRON INJ 2 MG/ML 2 ML VIAL IV PRN (12:22)
[2018-08-25] MEDS ORDERED: ALUMINUM/MAGNESIUM SUSP 30 ML UDC PO PRN (12:22)
[2018-08-25] MEDS ORDERED: MAGNESIUM HYDROXIDE SUSP 30 ML UDC PO PRN (12:22)
[2018-08-25] MEDS ORDERED: POLYETHYLENE (MIRALAX) 17 GM PACK PO PRN (12:22)
[2018-08-25] MEDS ORDERED: TIZANIDINE HCL 4 MG TABLET PO PRN (12:22)
[2018-08-25] MEDS: SODIUM CHLORIDE 0.9% 1000ML 1,000 ML IV SCH ×2 (13:56→21:53)
[2018-08-25] MEDS: PANTOprazole 40 MG TAB PO SCH (13:58)
[2018-08-25] MEDS: TOPIRAMATE 100 MG TAB PO SCH (13:58)
[2018-08-25] MEDS: GABAPENTIN 600 MG TAB PO SCH ×2 (13:59→21:45)
[2018-08-25] MEDS: CHOLECALCIFEROL 1,000 UNITS TAB PO SCH (13:59)
[2018-08-25] MEDS: AMITRIPTYLINE HCL 50 MG TAB PO SCH (13:59)
[2018-08-25] MEDS: MULTIVITAMIN TAB PO SCH (13:59)
[2018-08-25] MEDS: POTASSIUM CHLORIDE 20 MEQ TABCR PO SCH (13:59)
[2018-08-25] MEDS: ALBUT/IPRATROP 3MG/0.5MG NEB 3 ML VIAL NEB SCH ×2 (15:08→20:54)
[2018-08-25] MEDS: HEPARIN SOD 5,000 UNIT/0.5 ML VIAL SQ SCH (21:44)
[2018-08-25] MEDS: methylPREDNISolone 60 MG in SYRINGE 0 ML IV SCH (21:45)
[2018-08-25] MEDS: DOXYCYCLINE HYCLATE 100 MG CAP PO SCH (21:45)
[2018-08-25] MEDS: SIMVASTATIN 20 MG TAB PO SCH (21:52)
[2018-08-26] MEDS: ALBUT/IPRATROP 3MG/0.5MG NEB 3 ML VIAL NEB SCH ×4 (07:01→19:14)
[2018-08-26 07:19] LABS: Hematocrit (blood only) 37.8 % (37-47); Immature Granulocytes # (auto) 0.03 K/uL (0.00-0.02); Immature Granulocytes % (auto) 0.5 %; Lymphocytes # (auto) 0.39 K/uL (1.2-3.4); Lymphocytes % (auto) 6.9 %; Mean Corpuscular Hgb Conc 31.7 g/dL (32-36); Mean Corpuscular Volume 90.6 fL (80-100); Monocytes # (auto) 0.28 K/uL (0.11-0.59); Neutrophils # (auto) 4.94 K/uL (1.4-6.5); Neutrophils % (auto) 87.6 %; Platelet Count 203 K/uL (130-400); RDW Coefficient of Variation 12.5 % (11.5-14.5); RDW Standard Deviation 41.5 fL (36.4-46.3); Red Blood Count 4.17 M/uL (4.2-5.4); White Blood Count 5.64 K/uL (4.8-10.8)
--- NOTE | 2018-08-26 07:27 | XRay Report ---
XR chest 1V portable HISTORY: 58 years-old Female Hypoxia acute hypoxia COMPARISON: Chest radiograph 08/25/2018 TECHNIQUE: Portable AP view of the chest FINDINGS: Cardiomediastinal and hilar silhouettes are within normal limits. Calcification of the thoracic aorti c arch. There is no pneumothorax, pleural effusion, focal airspace consolidation or overt pulmonary e shamar. Ill-defined left basilar opacities suggestive of summation density artifact. Degenerative millan es are seen about the shoulders and spine. IMPRESSION: No acute process. The above report was generated using voice recognition software. It may contain grammatical, syntax o r spelling errors. Electronically signed by: Mauricio Smith M.D. 08/26/2018 7:25 AM
[2018-08-26] MEDS: TOPIRAMATE 100 MG TAB PO SCH (07:50)
[2018-08-26] MEDS: DOXYCYCLINE HYCLATE 100 MG CAP PO SCH ×2 (07:50→20:43)
[2018-08-26] MEDS: CHOLECALCIFEROL 1,000 UNITS TAB PO SCH (07:50)
[2018-08-26] MEDS: MULTIVITAMIN TAB PO SCH (07:50)
[2018-08-26] MEDS: methylPREDNISolone 60 MG in SYRINGE 0 ML IV SCH ×2 (07:50→20:42)
[2018-08-26] MEDS: POTASSIUM CHLORIDE 20 MEQ TABCR PO SCH (07:50)
[2018-08-26] MEDS: GABAPENTIN 600 MG TAB PO SCH ×3 (07:50→20:43)
[2018-08-26] MEDS: PANTOprazole 40 MG TAB PO SCH (07:50)
[2018-08-26] MEDS: ACETAMINOPHEN 325 MG TAB PO PRN ×2 (07:50→16:01)
[2018-08-26] MEDS: AMITRIPTYLINE HCL 50 MG TAB PO SCH (07:50)
[2018-08-26] MEDS: HEPARIN SOD 5,000 UNIT/0.5 ML VIAL SQ SCH ×2 (07:51→20:45)
[2018-08-26 07:55] LABS: Calcium 8.8 mg/dl (8.5-10.1); Creatinine Clr Calc Pharmacy 59.9 ml/min; Est GFR (African American) 59.1; Potassium 4.4 mmol/L (3.5-5.1)
[2018-08-26 14:33] LABS: D Dimer 550 ug/L FEU (0-500)
--- NOTE | 2018-08-26 14:51 | Medical Student Progress Note ---
Date of Service August 26, 2018 Assessment & Plan (1) SOB (shortness of breath): 58yo F with history of COPD, asthma, LALO (uses CPAP), HTN, HLP, GERD admitted for COPD exacerbation after presenting with MORAN/SOB and productive cough x 1wk. SOB most likely attributable to a COPD exacerbation triggered by a URI (viral or bacterial in nature). This is supported by clinical course of MORAN/SOB, productive cough x 1 wk, reported fever at home, Temp of 39 at admission, requiring 1-3L of O2, course breath sounds on exam b/l. No evidence of PNA on CXR and WBC not elevated. Blood Cx no growth to date. pt started on methylprednisolone 60mg q12 albuterol nebulizier treatments q6hr doxy 100mg BID for possible bacterial brochitis pt continues to have elevated HR in high 90s to 115-- may be a result of albuterol. Low clinical suspicion for a PE (while tachy, no cp, and sob has resolved with steroids and albuterol), but d-dimer ordered (b/c it is useful in a situation where the pre-test probability is low). With elevated HR and anxiety, TSH was also ordered. pt will require another 24hr of IV steroids and breathing treatments d/c on course of po steroids and finish 5-7d course of doxy Supervising Attestation Patient seen and examined, discussed with medical student about patient condition and care plan, agree current care plan, Subjective: Significantly improving however still have mild denies fever and chills, denies productive cough denies chest pain Otherwise review of system is negative Objective: Awake alert orientated, bilateral decreased breathing sound significant, no wheezing rhonchi or crackles, lower extremity no edema Assessment and plan: 58yo F with history of COPD, asthma, LALO (uses CPAP), HTN, HLP, GERD admitted for COPD exacerbation after presenting with MORAN/SOB and productive cough x 1wk. SOB most likely attributable to a COPD exacerbation with history of significant smoking, and significant decreased breath sounds in the lungs , continue methylprednisolone 60mg q12, continue albuterol nebulizier treatments q6hr, continue doxy 100mg BID for possible bacterial brochitis . We will follow-up blood culture results Patient has tachycardia with high 90s to 115 may be a result of albuterol. Possible okay to discharge home and they want to Subjective 58yo F with history of COPD, asthma, LALO (uses CPAP), HTN, HLP, GERD admitted for COPD exacerbation after presenting with MORAN/SOB and productive cough x 1wk (fever?). no sob at rest or with activity this AM. feels she is responding to albuterol treatments an steroids dry cough, no production no f/c/n/v/d Physical Exam Vital Signs (Past 24 Hours): Last Vital Signs Temp 36.7 C 08/26/18 07:24 Pulse 94 H 08/26/18 11:05 Resp 20 08/26/18 07:24 BP 134/83 08/26/18 07:24 Pulse Ox 100 08/26/18 11:05 Physical Exam: GENERAL: WD/WN, alter, cooperative, anxious HEENT: Head: Atraumatic, normocephalic. Eyes: EOMI, Nose: No nasal congestion. Throat: No tonsillar erythema, exudates, or enlargement. Mouth: Moist mucous membranes, no lesions. Neck: Supple, no JVD, no cervical LAD. Nervous System: Mental status: Cranial nerves IIXII grossly intact. Motor: Strength 5/5 in all muscle groups. Chest/Lung: Course breath sounds b/l No rales, rhonchi, wheezing, Heart: normal rhythm, but elevated HR Normal S1, S2. No murmurs, rubs, or gallops. Abdomen: Soft, nontender, nondistended, BS present, Extremities: No clubbing, cyanosis, or edema. ecchymoses of b/l lower legs Results & Data Diagnostic Findings XRay Report Patient: JAIMIE JACKSON Date: 08/25/18 MR#: [id number] 36 ANGE DIAZ Acct ID:[id number]: [address] [facility] Zip: [place] [address] Age: 58Location: 2W Sex: F Room[facility]Bed: W2[facility] Att Phy: Fran Mckeon M.D.Diagnosis: COUGH,CHILLS,FEVER Dahlia Phy: Wilman Ardon-CService Date: 08/26/18 Fam Phy: Interpreting Phy: Allen Smith Admit Phy: Dona Potter D.O. Ordering Phy: Sean Luis PA-C cc: ~ XR chest 1V portable HISTORY: 58 years-old Female Hypoxia acute hypoxia COMPARISON: Chest radiograph 08/25/2018 TECHNIQUE: Portable AP view of the chest FINDINGS: Cardiomediastinal and hilar silhouettes are within normal limits. Calcification of the thoracic aortic arch. There is no pneumothorax, pleural effusion, focal airspace consolidation or overt pulmonary edema. Ill-defined left basilar opacities suggestive of summation density artifact. Degenerative changes are seen about the shoulders and spine. IMPRESSION: No acute process. The above report was generated using voice recognition software. It may contain grammatical, syntax or spelling errors. Electronically signed by: Mauricio Smith M.D. 08/26/2018 7:25 AM
[2018-08-26] MEDS: SIMVASTATIN 20 MG TAB PO SCH (20:43)
[2018-08-27] MEDS: METOPROLOL SUCC 50MG EXT REL TAB PO SCH ×2 (01:08→07:04)
[2018-08-27] MEDS: ALBUT/IPRATROP 3MG/0.5MG NEB 3 ML VIAL NEB SCH ×3 (01:23→11:17)
[2018-08-27] MEDS: HEPARIN SOD 5,000 UNIT/0.5 ML VIAL SQ SCH (07:04)
[2018-08-27] MEDS: TOPIRAMATE 100 MG TAB PO SCH (07:04)
[2018-08-27] MEDS: GABAPENTIN 600 MG TAB PO SCH (07:05)
[2018-08-27] MEDS: POTASSIUM CHLORIDE 20 MEQ TABCR PO SCH (07:05)
[2018-08-27] MEDS: DOXYCYCLINE HYCLATE 100 MG CAP PO SCH (07:05)
[2018-08-27] MEDS: PANTOprazole 40 MG TAB PO SCH (07:05)
[2018-08-27] MEDS: CHOLECALCIFEROL 1,000 UNITS TAB PO SCH (07:05)
[2018-08-27] MEDS: AMITRIPTYLINE HCL 50 MG TAB PO SCH (07:05)
[2018-08-27] MEDS: MULTIVITAMIN TAB PO SCH (07:05)
[2018-08-27 07:46] LABS: Hematocrit (blood only) 36.9 % (37-47); Hemoglobin 11.9 g/dL (12.0-16.0); Immature Granulocytes # (auto) 0.05 K/uL (0.00-0.02); Immature Granulocytes % (auto) 0.5 %; Lymphocytes # (auto) 0.59 K/uL (1.2-3.4); Lymphocytes % (auto) 5.4 %; Mean Corpuscular Hgb Conc 32.2 g/dL (32-36); Mean Corpuscular Volume 89.6 fL (80-100); Mean Platelet Volume 9.9 fL (7.4-10.4); Monocytes # (auto) 0.64 K/uL (0.11-0.59); Monocytes % (auto) 5.9 %; Neutrophils # (auto) 9.55 K/uL (1.4-6.5); Neutrophils % (auto) 88.2 %; Platelet Count 244 K/uL (130-400); RDW Coefficient of Variation 12.9 % (11.5-14.5); RDW Standard Deviation 42.1 fL (36.4-46.3); Red Blood Count 4.12 M/uL (4.2-5.4); White Blood Count 10.83 K/uL (4.8-10.8)
[2018-08-27] MEDS: methylPREDNISolone 60 MG in SYRINGE 0 ML IV SCH (07:49)
[2018-08-27 08:20] LABS: BUN Creatinine Ratio 19.9 (10-20); Calcium 8.9 mg/dl (8.5-10.1); Est GFR (African American) 61.6; Est GFR (Non-African American) 53.1; Potassium 4.5 mmol/L (3.5-5.1)
[2018-08-27] MEDS ORDERED: predniSONE 20 MG TAB PO SCH (09:00)
--- NOTE | 2018-08-27 10:32 | Discharge Summary ---
Date of Service August 27, 2018 Admission HPI Per Admitting Provider Krystin Jaffe is a pleasant 58yo C female with history of asthma, HTN, HLP, GERD presenting with SOB. Patient reports MORAN/SOB and productive cough which began approximately 1 week ago. Symptoms have been progressive. She has been taking her inhalers, Symbicort and Albuterol with no improvement. Patient denies CP/palpitations. She does report some mildly increased LE edema, L>R in leg with prior injury. Stable orthopnea. Also with 40# unintentional weight loss over the last year, denies dietary changes. Patient with prior history of smoking. 1ppd x 26 years. Quit 14 year ago. She reports she was given a diagnosis of COPD in the past based on symptoms and history. She follows with [facility] and was last seen 16 June 2018. She had PFTs performed on 05/07/18 which revealed severe obstructive lung defect. Mild decrease in diffusing capacity. Good response to bronchodilators. FVC changed by 15%, FEV1 changed by 29%, FEF 25-75 changted by 35%. Patient also with LALO, she has CPAP at home which she tries to be compliant with but often does not use it through the night. She did receive a flu shot this year. ER Course: Tylenol 1000mg, Albuterol 3ml, Cefepime 2gm, Toradol 15mg, Solumedrol 60mg, NSS x 1L Principal Diagnosis no Discharge Data Allergies Allergy/AdvReac Type Severity Reaction Status Date / Time No Known Allergies Allergy Unverified 08/25/18 09:05 Consultations 08/25/18 09:43 ED Decision to Admit Stat Hospital Course (1) SOB (shortness of breath): 58yo F with history of COPD, asthma, LALO (uses CPAP), HTN, HLP, GERD admitted for COPD exacerbation after presenting with MORAN/SOB and productive cough x 1wk. SOB most likely attributable to a COPD exacerbation with history of significant smoking, and significant decreased breath sounds in the lungs , Has been on methylprednisolone 60mg q12, will switch to oral prednisone tapering dose upon discharge continue albuterol nebulizier treatments q6hr, continue doxy 100mg BID for possible bacterial brochitis for total 7-day. History of hypertension patient on Toprol 50 mg p.o. twice daily, this medicine was on prior to this admission that can be continued Patient has tachycardia with high 90s to 115 may be a result of albuterol. have mild tachycardia need to follow-up with PCP TSH was mildly low at 0.09, follow-up with PCP GERD, depression, stable continue current medication Discharge instruction you have COPD exacerbation with history of significant smoking, you have brochitis . You have mild tachycardia Your TSH was mildly low at 0.09 You need to follow-up with primary care physician for the above condition you was taking Metoprolol succinate 50 mg twice daily at home, this can be c ontinued Subjective upon discharge no sob , speak full sentence, no complaint, occasional cough, nonproductive, no f/c/n/v/d Otherwise review of system was negative Physical Exam at discharge GENERAL: WD/WN, alter, cooperative, anxious HEENT: Head: Atraumatic, normocephalic. Eyes: EOMI, Nose: No nasal congestion. Throat: No tonsillar erythema, exudates, or enlargement. Chest/Lung: Course breath sounds b/l, occasional wheezing No rales, rhonchi Heart: normal rhythm, but elevated HR Normal S1, S2. No murmurs, rubs, or gallops. Abdomen: Soft, nontender, nondistended, BS present, Extremities: No clubbing, cyanosis, or edema. Lab data at discharge Laboratory Results - last 24 hr 08/26/18 08/26/18 08/27/18 13:44 13:44 07:09 WBC 10.83 H RBC 4.12 L Hgb 11.9 L Hct 36.9 L MCV 89.6 MCH 28.9 MCHC 32.2 RDW Std Deviation 42.1 RDW Coeff of Dougie 12.9 Plt Count 244 MPV 9.9 Immature Gran % (Auto) 0.5 Neut % (Auto) 88.2 Lymph % (Auto) 5.4 [place] % (Auto) 5.9 Eos % (Auto) 0.0 Baso % (Auto) 0.0 Immature Gran # (Auto) 0.05 H Neut # (Auto) 9.55 H Lymph # (Auto) 0.59 L [place] # (Auto) 0.64 H Eos # (Auto) 0.00 Baso # (Auto) 0.00 D-Dimer 550 H* Sodium Potassium Chloride Carbon Dioxide Anion Gap BUN Creatinine Est Cr Clr Drug Dosing Est GFR ( Amer) Est GFR (Non-Af Amer) BUN/Creatinine Ratio Glucose Calcium TSH 0.095 L 08/27/18 07:09 WBC RBC Hgb Hct MCV MCH MCHC RDW Std Deviation RDW Coeff of Dougie Plt Count MPV Immature Gran % (Auto) Neut % (Auto) Lymph % (Auto) [place] % (Auto) Eos % (Auto) Baso % (Auto) Immature Gran # (Auto) Neut # (Auto) Lymph # (Auto) [place] # (Auto) Eos # (Auto) Baso # (Auto) D-Dimer Sodium 141 Potassium 4.5 Chloride 111 H Carbon Dioxide 27 Anion Gap 3.0 BUN 23 H Creatinine 1.15 Est Cr Clr Drug Dosing 62.0 Est GFR ( Amer) 61.6 Est GFR (Non-Af Amer) 53.1 BUN/Creatinine Ratio 19.9 Glucose 117 H Calcium 8.9 TSH Microbiology 08/25/18 08:40 Blood Blood Culture - Preliminary No growth to date. 08/25/18 08:37 Blood Blood Culture - Preliminary No growth to date. Total Time Total Time Spent Total Time Spent (In Minutes): 35 Discharge Plan Discharge Items Patient Disposition: Home - Self-Care Reason For Visit: COUGH,CHILLS,FEVER Discharge Diagnosis: COPD exacerbation Condition: Fair Discharge Goals: Decrease discomfort, Diagnostic testing, Improve disease control and Improve function Activity: Resume your previous activity Non-emergency contact: Primary Care Provider Call non-emergency contact if: you have any medication questions Follow-up/Referrals: Wilman Ardon PA-C [Primary Care Provider] - Diet: Heart Healthy and Low Sodium (2gm) Addtl Provider Instructions: you have COPD exacerbation with history of significant smoking, you have brochitis . You have mild tachycardia Your TSH was mildly low at 0.09 You need to follow-up with primary care physician for the above condition you was taking Metoprolol succinate 50 mg twice daily at home, this can be continued you need to follow up with your primary care physician in 1 week, - take medication as instructed, never overdose or any misuse, or take with alcohol, because misuse of medicine may cause organ damage or , call me, or your primary care physician if have questions of discharge medicaitons. - call your primary care physician, or go to local emergency room if has any fever/chill, chest pain, shortness of breathing, nausea/vomiting/abdominal pain, facial droop/slurry speech/local weakness, or if has any questions. - fall precaution - diet as instructed Prescriptions: New doxycycline hyclate 100 mg Capsule 100 mg PO BID 5 Days Qty: 10 RF: 0 ipratropium-albuterol 0.5 mg-3 mg(2.5 mg base)/3 mL Solution For Nebulization 3 ml NEB QIDR 7 Days Qty: 100 RF: 0 prednisone 20 mg Tablet 40 mg PO BID 8 Days Qty: 15 RF: 0 metoprolol succinate 50 mg Tablet Extended Release 24 Hr 50 mg PO BID 1 Days Qty: 2 RF: 0 Continued multivitamin Tablet 1 tab PO DAILY RF: 0 furosemide 40 mg Tablet 40 mg PO QAM RF: 0 gabapentin 600 mg Tablet 600 mg PO TID RF: 0 ranitidine HCl 300 mg tablet 300 mg PO DAILY RF: 0 amitriptyline 50 mg Tablet 50 mg PO DAILY RF: 0 potassium chloride 20 mEq tablet,ER particles/crystals 20 meq PO DAILY RF: 0 pantoprazole 40 mg Tablet,Delayed Release (Dr/Ec) 40 mg PO DAILY RF: 0 simvastatin 20 mg Tablet 20 mg PO PM RF: 0 cholecalciferol (vitamin D3) [Vitamin D3] 1,000 unit Capsule 1,000 unit PO DAILY RF: 0 tizanidine 4 mg Capsule 4 mg PO HS PRN (Reason: Insomnia) RF: 0 topiramate 200 mg Capsule,Extended Release 24hr 200 mg PO DAILY RF: 0 Stand-Alone Forms: [facility] Discharge Orders: Discharge Order (Routine); Ordered 08/27/18 Ordered By: Aaron Thomas Admission Data Admit Date/Time: 08/25/18 11:19 Attending Provider: Aaron Thomas Admit Provider: Dona Potter Primary Care Provider: Wilman Ardon Other Providers: Dona Potter ; Fran Mckeon Service: Medical
--- NOTE | 2018-08-27 12:05 | Medical Student Progress Note ---
Date of Service August 27, 2018 Assessment & Plan (1) SOB (shortness of breath): 58yo F with history of COPD, asthma, LALO (uses CPAP), HTN, HLP, GERD admitted for COPD exacerbation after presenting with MORAN/SOB and productive cough x 1wk. 08/26/18 SOB most likely attributable to a COPD exacerbation triggered by a URI (viral or bacterial in nature). This is supported by clinical course of MORAN/SOB, productive cough x 1 wk, reported fever at home, Temp of 39 at admission, requiring 1-3L of O2, course breath sounds on exam b/l. No evidence of PNA on CXR and WBC not elevated. Blood Cx no growth to date. pt started on methylprednisolone 60mg q12 albuterol nebulizier treatments q6hr doxy 100mg BID for possible bacterial brochitis pt continues to have elevated HR in high 90s to 115-- may be a result of albuterol. Low clinical suspicion for a PE (while tachy, no cp, and sob has resolved with steroids and albuterol), but d-dimer ordered (b/c it is useful in a situation where the pre-test probability is low). With elevated HR and anxiety, TSH was also ordered. pt will require another 24hr of IV steroids and breathing treatments d/c on course of po steroids and finish 5-7d course of doxy 08/27/18 pt's condition (ie shortness of breath) has improved and suitable for d/c (has remained afebrile, O2 sat 96 on RA, improved lung exam) d/c meds are prednisone taper of 5 days; doxy 100mg bid for a total of 7days Subjective 58yo F with history of COPD, asthma, LALO (uses CPAP), HTN, HLP, GERD admitted for COPD exacerbation after presenting with MORAN/SOB and productive cough x 1wk, fever at home. no sob at rest or with activity this AM. reports metoprolol succinate 50mg BID was left off her medication list-- therefore accounting for her elevated HR during hospital stay now cough is productive; white mucus no f/c/n/v/d Physical Exam Vital Signs (Past 24 Hours): Last Vital Signs Temp 36.6 C 08/27/18 10:09 Pulse 91 H 08/27/18 11:20 Resp 18 08/27/18 11:20 BP 121/72 08/27/18 10:09 Pulse Ox 96 08/27/18 11:20 Physical Exam: GENERAL: WD/WN, alter, cooperative, slightly anxious HEENT: Head: Atraumatic, normocephalic. Eyes: EOMI, Nose: No nasal congestion. Throat: No tonsillar erythema, exudates, or enlargement. Mouth: Moist mucous membranes, no lesions. Neck: Supple, no JVD, no cervical LAD. Nervous System: Mental status: Cranial nerves IIXII grossly intact. Motor: Strength 5/5 in all muscle groups. Chest/Lung: LCTA b/l with some faint end expiratory wheeze No rales, rhonchi, Heart: normal rhythm, but HR slightly elevated Normal S1, S2. No murmurs, rubs, or gallops. Abdomen: Soft, nontender, nondistended, BS present, Extremities: No clubbing, cyanosis, or edema. ecchymoses of b/l lower legs
== END 2018-08-27 12:09 | disposition home or self-care (01) ==
LOC: 2W 08:16 → ED 08:16 → SUATTDRO 11:19 → 2W 11:47 → 4W 08-26 22:01

== ENCOUNTER 2020-07-06 13:15 | Inpatient (IN) ==
[2020-07-06] MEDS ORDERED: ACETAMINOPHEN 1,000 MG/100 ML VIAL IV STA (13:59)
[2020-07-06] MEDS ORDERED: SODIUM CHLORIDE 0.9% 1000ML 2,000 ML IV ONE (13:59)
[2020-07-06] MEDS ORDERED: METOCLOPRAMIDE HCL INJ 5 MG/ML 2 ML VIAL IV STA (13:59)
[2020-07-06] MEDS ORDERED: FAMOTIDINE 20MG IV PUSH 20 MG/5 ML SYR IV STA (13:59)
[2020-07-06 14:12] LABS: Basophils # (auto) 0.02 K/uL (0-0.2); Basophils % (auto) 0.1 %; Eosinophils # (auto) 0.15 K/uL (0-0.5); Eosinophils % (auto) 0.7 %; Hematocrit (blood only) 42.1 % (37-47); Hemoglobin 13.8 g/dL (12.0-16.0); Immature Granulocytes # (auto) 0.12 K/uL (0.00-0.02); Immature Granulocytes % (auto) 0.6 %; Lymphocytes # (auto) 3.39 K/uL (1.2-3.4); Lymphocytes % (auto) 16.7 %; Mean Corpuscular Hemoglobin 30.4 pg (25-34); Mean Corpuscular Hgb Conc 32.8 g/dL (32-36); Mean Corpuscular Volume 92.7 fL (80-100); Mean Platelet Volume 10.6 fL (7.4-10.4); Monocytes % (auto) 6.9 %; Neutrophils # (auto) 15.19 K/uL (1.4-6.5); Platelet Count 306 K/uL (130-400); RDW Coefficient of Variation 13.3 % (11.5-14.5); RDW Standard Deviation 45.5 fL (36.4-46.3); Red Blood Count 4.54 M/uL (4.2-5.4); White Blood Count 20.27 K/uL (4.8-10.8)
--- NOTE | 2020-07-06 14:14 | Emergency Department Note ---
Impression & Plan Acute renal failure, Recurrent syncope, Acute dehydration, Leukocytosis, Acute hypotension ED Provider Note NAME: JAIMIE JACKSON AGE: 60 SEX: F ARRIVES VIA: Walk-In INFORMANT: Patient, ED PROVIDER(S): Sheldon Denis MD CHIEF COMPLAINT: Syncope PLAN: Disposition: Admit MEDICAL DECISION MAKING: The patient is a pleasant 60-year-old woman with a past medical history of hypertension, hyperlipidemia, COPD who presents emergency department with recurrent near syncopal episodes that been ongoing since Thursday in the setting of having associated symptoms of abdominal pain and bloating/spasms with urge to move her bowels but only small amounts each time with associated nausea but no vomiting. She reports she recently had additional blood pressure medication (Valsartan/HCTZ) started on and correlates her symptoms to this change. She denies any fall with head strike and reports her is always been there to catch her. She reports she had a PCP appointment today to discuss her symptoms but was dizzy when she arrived and was found to have low blood pressure in the 80s referred to the emergency department. Patient denies any known COVID-19 exposures. On arrival when resting in the stretcher the patient denies any dizziness or nausea at this time. He is afebrile with triage blood pressure of 70s/50s but when in the room was upper 80s/60s with heart rate in the 100s and O2 saturation in the low 90s. Suspect triage O2 saturation of 77% on RA likely related to poor perfusion in the setting of her hypotension. Patient appears clinically dry. She has mild generalized abdominal discomfort without discrete tenderness. Her abdomen is soft and nondistended. Lungs with scant intermittent wheeze but otherwise clear. EKG without overt acute ischemia. Chest x-ray negative for acute cardiopulmonary process. WBC 20K,, nonspecific and possibly reflecting a component of dehydration given the patient's renal failure. H/H 13.8/42.1 increased from previous values also supporting component of hemoconcentration. Platelets within normal limits. VBG with mild acidemia at 7.31 with PCO2 of 64 in the setting of history of COPD. Creatinine is newly elevated at 2.91 with BUN of 39 with BUN/Cr ~20, suggestive of prerenal etiology. Lactate 1.7, within normal limits. Electrolytes LFTs without significant abnormality. Troponin negative/undetectable. Lipase within normal limits. TSH within normal limits. COVID-19 RNA, NAAT test was negative. CT abdomen pelvis performed and negative for acute abnormality. Incidentaly note of "bilateral L3 pedicle screws partially extend through the superior endplate of L3". Upon reevaluation the patient was feeling improved after IV fluid hydration (2L NSS). Blood pressure normalizing to 120s/80s. Heart rate improved to the 70s-80s. Suspect the patient's recurrent syncopal episodes are likely related to her acute renal failure in the setting of recently starting new antihypertensives. UA is pending. However procalcitonin undetectable, making sepsis less likely. She agrees with plan for admission. Will defer decision for antibiotics to admitting team. Case was discussed with Dr. Lu, [facility] [place] hospitalist, who will evaluate the patient for admission. Triage Nursing notes reviewed and agree them. Prior medical records reviewed Vital Signs: reviewed and remarkable for hypotension and tachycardia. Differential diagnosis: Vasovagal event, dehydration, infection, hypoglycemia, electrolyte abnormalities, cardiac sources, intracerebral event, pulmonary embolism, seizure, toxicologic, neurologic, as well as other pathologies. ER treatment provided: See below. Diagnostics interpreted by me: ECG: Normal sinus rhythm, 89 bpm, no ectopy, no overt ST elevation or depression, QTC 411, QRS 78. Cardiac Monitoring: An order for continuous cardiac monitoring was placed and demonstrated Normal sinus rhythm, 89 bpm, no ectopy. Laboratory studies: See below Imaging studies: XR chest 1V portable HISTORY: 60 years-old Female weakness acute weakness COMPARISON: Chest radiograph 08/26/2018 TECHNIQUE: Portable upright AP view of the chest FINDINGS: Cardiomediastinal and hilar silhouettes are within normal limits. Calcified plaque of the thoracic aorta. No pneumothorax, pleural effusion, airspace consolidation or overt pulmonary edema. Bones of the chest appear grossly intact. IMPRESSION: No acute process. ACT 112: Negative or not required by law. The above report was generated using voice recognition software. It may contain grammatical, syntax or spelling errors. Electronically signed by: Mauricio Smith M.D. 07/06/2020 2:35 PM Dictated: 07/06/201433Transcribed: 07/06/20 1434 --- ABDOMEN AND PELVIS CT WITHOUT CONTRAST CT DOSE: 816.72 mGycm HISTORY: Acute generalized abdominal pain with nausea and syncope abd pain, syncope, nausea TECHNIQUE: Multiaxial CT images of the abdomen and pelvis were performed without contrast. A dose lowering technique was utilized adhering to the principles of ALARA. COMPARISON STUDY: Chest radiograph of same day, chest CT 02/02/2018 FINDINGS: Imaged inferior cardiac chambers are unremarkable. Clear lung bases. No pneumatosis or pneumoperitoneum. The unenhanced spleen, mildly atrophic pancreas, adrenal glands and unenhanced liver appear unremarkable. Unremarkable gallbladder. Kidneys are within normal limits. Urinary bladder wall thickening with partial distention. Unremarkable uterus and adnexa. Calcified plaque of the abdominal aorta without aneurysm. No adenopathy. No retroperitoneal hematoma. There is no bowel obstruction or bowel wall thickening. No ascites or mesenteric formation. Colonic diverticulosis without acute diverticulitis. Absent appendix. Unremarkable soft tissues. Demineralized appearance of the bones without acute fracture. Prior laminectomy with posterior interbody elissa and screw fusion at L3- S1 with discectomy changes at L4-L5 and L5-S1. No hardware fracture or loosening. The L3 pedicle screws partially extend through the superior endplate. Severe disc space narrowing at L2-L3. IMPRESSION: 1. No acute intra-abdominal or intrapelvic abnormality. 2. No bowel obstruction or bowel wall thickening. 3. Posterior interbody elissa and screw fusion at L3-S1. The bilateral L3 pedicle screws partially extend through the superior endplate of L3. 4. Additional findings as above. ACT 112: Negative or not required by law. The above report was generated using voice recognition software. It may contain grammatical, syntax or spelling errors. Consultation(s): Case was discussed with Dr. Lu, [facility] [place] hospitalist, who will evaluate the patient for admission. HPI: The patient is a pleasant 60-year-old woman with a past medical history of hypertension, hyperlipidemia, COPD who presents emergency department with recurrent near syncopal episodes that been ongoing since Thursday in the setting of having associated symptoms of abdominal pain and bloating/spasms with urge to move her bowels but only small amounts each time with associated nausea but no vomiting. She reports she recently had additional blood pressure medications started on and correlates her symptoms to this change. She denies any fall with head strike and reports her is always been there to catch her. She reports she had a PCP appointment today to discuss her symptoms but was dizzy when she arrived and was found to have low blood pressure in the 80s referred to the emergency department. Patient denies any known COVID-19 exposures. ROS: See above HPI for pertinent positives & negatives. A total of 10 systems reviewed and were otherwise negative. PAST MEDICAL HISTORY:See Below PAST SURGICAL HISTORY:See Below FAMILY HISTORY:See Below SOCIAL HISTORY:See Below HOME MEDICATIONS:See Below ALLERGIES:See Below VITALS:See Below PHYSICAL EXAMINATION: GENERAL: Awake, alert, fatigued-appearing, in no distress HENT: Normocephalic, atraumatic. Oropharynx with dry mucous membranes and otherwise unremarkable. EYES: Normal conjunctiva. Sclera non-icteric. EOMI. No nystamgus. PEARRL. NECK: Supple. No nuchal rigidity. FROM. No JVD. RESPIRATORY: Scant intermittent wheeze but otherwise clear CARDIAC: Tachycardic rate, normal rhythm. Extremities warm and well perfused. Pulses equal. ABDOMEN: Soft, non-distended. Mild generalized abdominal discomfort without discrete tenderness. No rebound or guarding. No masses. RECTAL: Deferred. MUSCULOSKELETAL: Chest examination reveals no tenderness. The back is symmetrical on inspection without obvious abnormality. There is no CVA tenderness to palpation. No joint edema. LOWER EXTREMITIES: Calves are equal size bilaterally and non-tender. No edema. No discoloration. NEURO: Normal sensorium. No sensory or motor deficits noted. 5/5 strength and SILT x 4 extremities. Intact finger to nose. SKIN: No rash or jaundice noted. ED COURSE: Critical Care: I have personally spent greater than 35 minutes of critical care time in the direct management of this patient. This includes bedside care, interpretation of diagnostic studies, and testing, discussion with consultants, patient, and family members, and other required patient management activities. This 35 minutes is in excess of all separately billable procedures. Sheldon Denis MD Past Med/Surg History Medical History (Updated 07/06/20 @ 20:07 by Sheldon Denis MD) Acute bronchitis Asthma Chronic low back pain GERD (gastroesophageal reflux disease) Hyperlipidemia Hypertension Pneumonia Surgical History History of appendectomy Social History Smoking Status: Never smoker Hx Alcohol Use: No Hx Substance Use: No Preferred Language: Citizen Of [place] Communication Ability: Effective Beliefs That Will Affect Care: None Current Living Situation: Spouse Feels Safe at Home: Yes Assistive Devices: CPAP Allergies Allergies Allergy/AdvReac Type Severity Reaction Status Date / Time No Known Allergies Allergy Unverified 07/06/20 17:18 Home Meds Home Medications Medication Instructions Recorded Confirmed amitriptyline 50 mg PO DAILY 08/25/18 07/06/20 cholecalciferol (vitamin D3) 1,000 unit PO DAILY 08/25/18 07/06/20 [Vitamin D3] furosemide 40 mg PO 3XWK 08/25/18 07/06/20 gabapentin 600 mg PO TID 08/25/18 07/06/20 multivitamin 1 tab PO DAILY 08/25/18 07/06/20 potassium chloride 20 meq PO 3XWK 08/25/18 07/06/20 simvastatin 20 mg PO PM 08/25/18 07/06/20 tizanidine 4 mg PO HS PRN 08/25/18 07/06/20 albuterol sulfate 90 mcg/actuation 2 puffs INHALATION Q4H #1 gm 01/27/19 07/06/20 aerosol inhaler cetirizine 10 mg tablet 10 mg PO DAILY PRN #30 tab 01/27/19 07/06/20 metoprolol succinate 50 mg 50 mg PO DAILY tab 01/27/19 07/06/20 tablet,extended release 24 hr rizatriptan 10 mg disintegrating 10 mg PO UD PRN tab 01/27/19 07/06/20 tablet famotidine 20 mg PO HS 07/06/20 07/06/20 methimazole 5 mg PO DAILY 07/06/20 07/06/20 oxycodone 5 mg PO QID 07/06/20 07/06/20 pantoprazole 40 mg PO DAILY 07/06/20 07/06/20 valsartan-hydrochlorothiazide 1 tab PO DAILY 07/06/20 07/06/20 Previous Rx's Medication Instructions Recorded budesonide-formoterol HFA 160 2 puffs INH BID #10.2 gm 03/15/19 mcg-4.5 mcg/actuation aerosol inhaler Results & Data (ED) Vital Signs Vital Signs - 24 hr 07/06/20 13:21 07/06/20 13:22 07/06/20 13:47 Temperature 36.1 C L Temperature Source Oral Pulse Rate 110 H 95 H 92 H Pulse Rate [Right Finger] Pulse Rate from SpO2 Sensor 93 H Pulse Rhythm Regular Pulse Strength Normal Respiratory Rate 16 15 16 Respiratory Effort / Characteristics Non-Labored Respiratory Depth Normal Respiratory Pattern Regular Blood Pressure 73/53 L 139/56 L 88/60 L Blood Pressure [Right Arm] Blood Pressure Mean 59 83 69 Blood Pressure Mean [Right Arm] Pulse Oximetry 77 L 98 94 Oxygen Delivery Method Room Air Sepsis Recent Fever Within 48 Hours No Sepsis New/Unexplained Change in Mental Status N/A Sepsis Action Taken by Nursing No Action Required 07/06/20 14:00 07/06/20 14:15 07/06/20 14:30 Temperature Temperature Source Pulse Rate 87 84 83 Pulse Rate [Right Finger] Pulse Rate from SpO2 Sensor 87 85 82 Pulse Rhythm Pulse Strength Respiratory Rate 14 18 16 Respiratory Effort / Characteristics Respiratory Depth Respiratory Pattern Blood Pressure 86/54 L 83/55 L 94/66 L Blood Pressure [Right Arm] Blood Pressure Mean 64 64 75 Blood Pressure Mean [Right Arm] Pulse Oximetry 94 94 Oxygen Delivery Method Sepsis Recent Fever Within 48 Hours Sepsis New/Unexplained Change in Mental Status Sepsis Action Taken by Nursing 07/06/20 14:31 07/06/20 14:40 07/06/20 14:45 Temperature Temperature Source Pulse Rate 83 86 87 Pulse Rate [Right Finger] Pulse Rate from SpO2 Sensor 83 88 Pulse Rhythm Pulse Strength Respiratory Rate 16 16 15 Respiratory Effort / Characteristics Respiratory Depth Respiratory Pattern Blood Pressure 103/67 Blood Pressure [Right Arm] Blood Pressure Mean 79 Blood Pressure Mean [Right Arm] Pulse Oximetry 93 Oxygen Delivery Method Sepsis Recent Fever Within 48 Hours Sepsis New/Unexplained Change in Mental Status Sepsis Action Taken by Nursing 07/06/20 14:50 07/06/20 15:00 07/06/20 15:01 Temperature Temperature Source Pulse Rate 89 84 92 H Pulse Rate [Right Finger] Pulse Rate from SpO2 Sensor 85 92 H Pulse Rhythm Pulse Strength Respiratory Rate 15 14 13 Respiratory Effort / Characteristics Respiratory Depth Respiratory Pattern Blood Pressure 111/73 Blood Pressure [Right Arm] Blood Pressure Mean 85 Blood Pressure Mean [Right Arm] Pulse Oximetry 89 L Oxygen Delivery Method Sepsis Recent Fever Within 48 Hours Sepsis New/Unexplained Change in Mental Status Sepsis Action Taken by Nursing 07/06/20 15:10 07/06/20 15:16 07/06/20 15:20 Temperature Temperature Source Pulse Rate 98 H 92 H 98 H Pulse Rate [Right Finger] Pulse Rate from SpO2 Sensor 91 H 88 Pulse Rhythm Pulse Strength Respiratory Rate 20 15 17 Respiratory Effort / Characteristics Respiratory Depth Respiratory Pattern Blood Pressure 106/92 Blood Pressure [Right Arm] Blood Pressure Mean 96 Blood Pressure Mean [Right Arm] Pulse Oximetry Oxygen Delivery Method Sepsis Recent Fever Within 48 Hours Sepsis New/Unexplained Change in Mental Status Sepsis Action Taken by Nursing 07/06/20 15:30 07/06/20 16:03 07/06/20 16:04 Temperature Temperature Source Pulse Rate 93 H 93 H 93 H Pulse Rate [Right Finger] Pulse Rate from SpO2 Sensor 94 H 94 H Pulse Rhythm Pulse Strength Respiratory Rate 16 20 19 Respiratory Effort / Characteristics Respiratory Depth Respiratory Pattern Blood Pressure 102/67 120/78 Blood Pressure [Right Arm] Blood Pressure Mean 78 92 Blood Pressure Mean [Right Arm] Pulse Oximetry 93 95 Oxygen Delivery Method Sepsis Recent Fever Within 48 Hours Sepsis New/Unexplained Change in Mental Status Sepsis Action Taken by Nursing 07/06/20 16:10 07/06/20 16:15 07/06/20 16:20 Temperature Temperature Source Pulse Rate 92 H 87 92 H Pulse Rate [Right Finger] Pulse Rate from SpO2 Sensor 90 90 92 H Pulse Rhythm Pulse Strength Respiratory Rate 16 18 15 Respiratory Effort / Characteristics Respiratory Depth Respiratory Pattern Blood Pressure 123/68 Blood Pressure [Right Arm] Blood Pressure Mean 86 Blood Pressure Mean [Right Arm] Pulse Oximetry 96 93 94 Oxygen Delivery Method Sepsis Recent Fever Within 48 Hours Sepsis New/Unexplained Change in Mental Status Sepsis Action Taken by Nursing 07/06/20 16:30 07/06/20 16:31 07/06/20 16:40 Temperature Temperature Source Pulse Rate 93 H 90 93 H Pulse Rate [Right Finger] Pulse Rate from SpO2 Sensor 93 H 92 H 93 H Pulse Rhythm Pulse Strength Respiratory Rate 16 17 18 Respiratory Effort / Characteristics Respiratory Depth Respiratory Pattern Blood Pressure 122/73 Blood Pressure [Right Arm] Blood Pressure Mean 89 Blood Pressure Mean [Right Arm] Pulse Oximetry 94 92 94 Oxygen Delivery Method Sepsis Recent Fever Within 48 Hours Sepsis New/Unexplained Change in Mental Status Sepsis Action Taken by Nursing 07/06/20 16:45 07/06/20 16:50 07/06/20 17:00 Temperature Temperature Source Pulse Rate 93 H 91 H 92 H Pulse Rate [Right Finger] Pulse Rate from SpO2 Sensor 93 H 90 92 H Pulse Rhythm Pulse Strength Respiratory Rate 18 15 17 Respiratory Effort / Characteristics Respiratory Depth Respiratory Pattern Blood Pressure 97/72 L 90/70 L Blood Pressure [Right Arm] Blood Pressure Mean 80 76 Blood Pressure Mean [Right Arm] Pulse Oximetry 91 91 90 Oxygen Delivery Method Sepsis Recent Fever Within 48 Hours Sepsis New/Unexplained Change in Mental Status Sepsis Action Taken by Nursing 07/06/20 17:01 07/06/20 17:10 07/06/20 17:15 Temperature Temperature Source Pulse Rate 91 H 93 H 93 H Pulse Rate [Right Finger] Pulse Rate from SpO2 Sensor 90 96 H 94 H Pulse Rhythm Pulse Strength Respiratory Rate 17 21 18 Respiratory Effort / Characteristics Respiratory Depth Respiratory Pattern Blood Pressure 119/75 Blood Pressure [Right Arm] Blood Pressure Mean 89 Blood Pressure Mean [Right Arm] Pulse Oximetry 91 94 90 Oxygen Delivery Method Sepsis Recent Fever Within 48 Hours Sepsis New/Unexplained Change in Mental Status Sepsis Action Taken by Nursing 07/06/20 17:20 07/06/20 17:30 07/06/20 17:31 Temperature Temperature Source Pulse Rate 93 H 93 H 94 H Pulse Rate [Right Finger] Pulse Rate from SpO2 Sensor 93 H 93 H 94 H Pulse Rhythm Pulse Strength Respiratory Rate 24 19 Respiratory Effort / Characteristics Respiratory Depth Respiratory Pattern Blood Pressure 98/79 L Blood Pressure [Right Arm] Blood Pressure Mean 85 Blood Pressure Mean [Right Arm] Pulse Oximetry 90 92 94 Oxygen Delivery Method Sepsis Recent Fever Within 48 Hours Sepsis New/Unexplained Change in Mental Status Sepsis Action Taken by Nursing 07/06/20 17:47 07/06/20 17:50 07/06/20 17:51 Temperature Temperature Source Pulse Rate 98 H 96 H 96 H Pulse Rate [Right Finger] 96 H Pulse Rate from SpO2 Sensor 99 H Pulse Rhythm Pulse Strength Respiratory Rate 18 12 17 Respiratory Effort / Characteristics Non-Labored Respiratory Depth Normal Respiratory Pattern Blood Pressure 107/85 Blood Pressure [Right Arm] 107/85 Blood Pressure Mean 92 Blood Pressure Mean [Right Arm] 92 Pulse Oximetry 90 Oxygen Delivery Method Sepsis Recent Fever Within 48 Hours Sepsis New/Unexplained Change in Mental Status Sepsis Action Taken by Nursing 07/06/20 17:52 07/06/20 18:00 07/06/20 18:01 Temperature Temperature Source Pulse Rate 97 H 97 H 97 H Pulse Rate [Right Finger] Pulse Rate from SpO2 Sensor 98 H 97 H 99 H Pulse Rhythm Pulse Strength Respiratory Rate 19 19 17 Respiratory Effort / Characteristics Respiratory Depth Respiratory Pattern Blood Pressure 103/55 L Blood Pressure [Right Arm] Blood Pressure Mean 71 Blood Pressure Mean [Right Arm] Pulse Oximetry Oxygen Delivery Method Sepsis Recent Fever Within 48 Hours Sepsis New/Unexplained Change in Mental Status Sepsis Action Taken by Nursing 07/06/20 18:10 07/06/20 18:20 Temperature Temperature Source Pulse Rate 96 H 100 H Pulse Rate [Right Finger] Pulse Rate from SpO2 Sensor 97 H 100 H Pulse Rhythm Pulse Strength Respiratory Rate 21 15 Respiratory Effort / Characteristics Respiratory Depth Respiratory Pattern Blood Pressure Blood Pressure [Right Arm] Blood Pressure Mean Blood Pressure Mean [Right Arm] Pulse Oximetry 90 Oxygen Delivery Method Sepsis Recent Fever Within 48 Hours Sepsis New/Unexplained Change in Mental Status Sepsis Action Taken by Nursing Laboratory Data Attestation: I reviewed the patient's lab results. Result diagrams: 07/06/20 13:50 07/06/20 13:50 Lab Results 07/06/20 07/06/20 07/06/20 Range/Units 13:50 13:50 14:10 WBC 20.27 H (4.8-10.8) K/uL RBC 4.54 (4.2-5.4) M/uL Hgb 13.8 (12.0-16.0) g/dL Hct 42.1 (37-47) % MCV 92.7 (80-100) fL MCH 30.4 (25-34) pg MCHC 32.8 (32-36) g/dL RDW Std Deviation 45.5 (36.4-46.3) fL RDW Coeff of Dougie 13.3 (11.5-14.5) % Plt Count 306 (130-400) K/uL MPV 10.6 H (7.4-10.4) fL Immature Gran % (Auto) 0.6 % Neut % (Auto) 75.0 % Lymph % (Auto) 16.7 % [place] % (Auto) 6.9 % Eos % (Auto) 0.7 % Baso % (Auto) 0.1 % Neut # (Auto) 15.19 H (1.4-6.5) K/uL Lymph # (Auto) 3.39 (1.2-3.4) K/uL [place] # (Auto) 1.40 H (0.11-0.59) K/uL Eos # (Auto) 0.15 (0-0.5) K/uL Baso # (Auto) 0.02 (0-0.2) K/uL Immature Gran # (Auto) 0.12 H (0.00-0.02) K/uL VBG pH (7.36-7.41) VBG pCO2 (38-50) mmHg VBG pO2 mmHg VBG HCO3 mmol/L VBG O2 Saturation % VBG Base Excess mEq/L Barometric Pressure mm/Hg Sodium 140 (136-145) mmol/L Potassium 4.5 (3.5-5.1) mmol/L Chloride 101 (98-107) mmol/L Carbon Dioxide 33 H (21-32) mmol/L Anion Gap 6.0 (3-11) BUN 39 H (7-18) mg/dl Creatinine 2.94 H (0.6-1.2) mg/dl Est Cr Clr Drug Dosing Not Reportable Est GFR ( Amer) 19.5 Est GFR (Non-Af Amer) 16.8 BUN/Creatinine Ratio 13.1 (10-20) Glucose 126 H (70-99) mg/dl Lactate (0.4-2.0) mmol/L Calcium 9.3 (8.5-10.1) mg/dl Phosphorus 4.0 (2.5-4.9) mg/dl Magnesium 1.8 (1.8-2.4) mg/dl Total Bilirubin 0.5 (0.2-1) mg/dl Direct Bilirubin 0.1 (0-0.2) mg/dl AST 10 L (15-37) U/L ALT 21 (12-78) U/L Alkaline Phosphatase 89 (45-117) U/L Troponin I < 0.015 (0-0.045) ng/ml Total Protein 6.6 (6.4-8.2) gm/dl Albumin 3.0 L (3.4-5.0) gm/dl Globulin 3.6 (2.5-4.0) gm/dl Albumin/Globulin Ratio 0.8 L (0.9-2) Lipase 99 (73-393) U/L Procalcitonin (0-0.5) ng/ml TSH 2.560 (0.300-4.500) uIu/ml Urine Color Urine Appearance (Clear) Urine pH (4.5-7.5) Ur Specific Clements (1.000-1.030) Urine Protein (Negative) Urine Glucose (UA) (Negative) Urine Ketones (Negative) Urine Blood (Negative) Urine Nitrite (Negative) Urine Bilirubin (Negative) Urine Urobilinogen (Negative) Ur Leukocyte Esterase (Negative) Urine WBC (Auto) (0-5) /hpf Urine RBC (Auto) (0-4) /hpf U Hyaline Cast (Auto) (0-5) /lpf U Epithel Cells (Auto) (0-5) /lpf Urine Bacteria (Auto) (Negative) COVID-19 Eval Order Covid19 IDNow atMMNC SARS-CoV-2, RNA, NAAT (NEGATIVE) 07/06/20 07/06/20 07/06/20 Range/Units 14:10 15:34 15:35 WBC (4.8-10.8) K/uL RBC (4.2-5.4) M/uL Hgb (12.0-16.0) g/dL Hct (37-47) % MCV (80-100) fL MCH (25-34) pg MCHC (32-36) g/dL RDW Std Deviation (36.4-46.3) fL RDW Coeff of Dougie (11.5-14.5) % Plt Count (130-400) K/uL MPV (7.4-10.4) fL Immature Gran % (Auto) % Neut % (Auto) % Lymph % (Auto) % [place] % (Auto) % Eos % (Auto) % Baso % (Auto) % Neut # (Auto) (1.4-6.5) K/uL Lymph # (Auto) (1.2-3.4) K/uL [place] # (Auto) (0.11-0.59) K/uL Eos # (Auto) (0-0.5) K/uL Baso # (Auto) (0-0.2) K/uL Immature Gran # (Auto) (0.00-0.02) K/uL VBG pH (7.36-7.41) VBG pCO2 (38-50) mmHg VBG pO2 mmHg VBG HCO3 mmol/L VBG O2 Saturation % VBG Base Excess mEq/L Barometric Pressure mm/Hg Sodium (136-145) mmol/L Potassium (3.5-5.1) mmol/L Chloride (98-107) mmol/L Carbon Dioxide (21-32) mmol/L Anion Gap (3-11) BUN (7-18) mg/dl Creatinine (0.6-1.2) mg/dl Est Cr Clr Drug Dosing Est GFR ( Amer) Est GFR (Non-Af Amer) BUN/Creatinine Ratio (10-20) Glucose (70-99) mg/dl Lactate 1.7 (0.4-2.0) mmol/L Calcium (8.5-10.1) mg/dl Phosphorus (2.5-4.9) mg/dl Magnesium (1.8-2.4) mg/dl Total Bilirubin (0.2-1) mg/dl Direct Bilirubin (0-0.2) mg/dl AST (15-37) U/L ALT (12-78) U/L Alkaline Phosphatase (45-117) U/L Troponin I (0-0.045) ng/ml Total Protein (6.4-8.2) gm/dl Albumin (3.4-5.0) gm/dl Globulin (2.5-4.0) gm/dl Albumin/Globulin Ratio (0.9-2) Lipase (73-393) U/L Procalcitonin < 0.05 (0-0.5) ng/ml TSH (0.300-4.500) uIu/ml Urine Color Urine Appearance (Clear) Urine pH (4.5-7.5) Ur Specific Clements (1.000-1.030) Urine Protein (Negative) Urine Glucose (UA) (Negative) Urine Ketones (Negative) Urine Blood (Negative) Urine Nitrite (Negative) Urine Bilirubin (Negative) Urine Urobilinogen (Negative) Ur Leukocyte Esterase (Negative) Urine WBC (Auto) (0-5) /hpf Urine RBC (Auto) (0-4) /hpf U Hyaline Cast (Auto) (0-5) /lpf U Epithel Cells (Auto) (0-5) /lpf Urine Bacteria (Auto) (Negative) COVID-19 Eval Order SARS-CoV-2, RNA, NAAT NEGATIVE (NEGATIVE) 07/06/20 07/06/20 Range/Units 15:35 17:49 WBC (4.8-10.8) K/uL RBC (4.2-5.4) M/uL Hgb (12.0-16.0) g/dL Hct (37-47) % MCV (80-100) fL MCH (25-34) pg MCHC (32-36) g/dL RDW Std Deviation (36.4-46.3) fL RDW Coeff of Dougie (11.5-14.5) % Plt Count (130-400) K/uL MPV (7.4-10.4) fL Immature Gran % (Auto) % Neut % (Auto) % Lymph % (Auto) % [place] % (Auto) % Eos % (Auto) % Baso % (Auto) % Neut # (Auto) (1.4-6.5) K/uL Lymph # (Auto) (1.2-3.4) K/uL [place] # (Auto) (0.11-0.59) K/uL Eos # (Auto) (0-0.5) K/uL Baso # (Auto) (0-0.2) K/uL Immature Gran # (Auto) (0.00-0.02) K/uL VBG pH 7.31 L (7.36-7.41) VBG pCO2 64 H (38-50) mmHg VBG pO2 37 mmHg VBG HCO3 31 mmol/L VBG O2 Saturation < 60.0 % VBG Base Excess 3.4 mEq/L Barometric Pressure 722.7 mm/Hg Sodium (136-145) mmol/L Potassium (3.5-5.1) mmol/L Chloride (98-107) mmol/L Carbon Dioxide (21-32) mmol/L Anion Gap (3-11) BUN (7-18) mg/dl Creatinine (0.6-1.2) mg/dl Est Cr Clr Drug Dosing Est GFR ( Amer) Est GFR (Non-Af Amer) BUN/Creatinine Ratio (10-20) Glucose (70-99) mg/dl Lactate (0.4-2.0) mmol/L Calcium (8.5-10.1) mg/dl Phosphorus (2.5-4.9) mg/dl Magnesium (1.8-2.4) mg/dl Total Bilirubin (0.2-1) mg/dl Direct Bilirubin (0-0.2) mg/dl AST (15-37) U/L ALT (12-78) U/L Alkaline Phosphatase (45-117) U/L Troponin I (0-0.045) ng/ml Total Protein (6.4-8.2) gm/dl Albumin (3.4-5.0) gm/dl Globulin (2.5-4.0) gm/dl Albumin/Globulin Ratio (0.9-2) Lipase (73-393) U/L Procalcitonin (0-0.5) ng/ml TSH (0.300-4.500) uIu/ml Urine Color Yellow Urine Appearance Clear (Clear) Urine pH 5.0 (4.5-7.5) Ur Specific Clements 1.011 (1.000-1.030) Urine Protein Negative (Negative) Urine Glucose (UA) Negative (Negative) Urine Ketones Negative (Negative) Urine Blood Negative (Negative) Urine Nitrite Negative (Negative) Urine Bilirubin Negative (Negative) Urine Urobilinogen Negative (Negative) Ur Leukocyte Esterase Trace H (Negative) Urine WBC (Auto) 1-5 (0-5) /hpf Urine RBC (Auto) 0-4 (0-4) /hpf U Hyaline Cast (Auto) 0 (0-5) /lpf U Epithel Cells (Auto) 10-20 H (0-5) /lpf Urine Bacteria (Auto) Negative (Negative) COVID-19 Eval Order SARS-CoV-2, RNA, NAAT (NEGATIVE) Administered Medications Discontinued Medications Sodium Chloride (Nss 1000ml) 2,000 mls @ 999 mls/hr IV .Q2H1M ONE Stop: 07/06/20 15:59 Last Infusion: 07/06/20 16:49 Dose: 0 mls/hr Documented by: [id number] Admin: 07/06/20 14:15 Dose: 999 mls/hr Documented by: [id number] Acetaminophen (Ofirmev) 1,000 mg in 100 mls @ 400 mls/hr IV NOW STA Stop: 07/06/20 14:13 Last Infusion: 07/06/20 14:43 Dose: 0 mls/hr Documented by: [id number] Admin: 07/06/20 14:15 Dose: 400 mls/hr Documented by: [id number] Famotidine (Pepcid 20mg Iv Push) 20 mg in 5 mls @ 2.5 mls/min IV NOW STA Stop: 07/06/20 14:00 Last Admin: 07/06/20 14:15 Dose: 2.5 mls/min Documented by: [id number] Ceftriaxone Sodium (Rocephin) 1,000 mg in 50 mls @ 100 mls/hr IV NOW STA Stop: 07/06/20 18:02 Last Infusion: 07/06/20 18:26 Dose: 0 mls/hr Documented by: [id number] Admin: 07/06/20 17:50 Dose: 100 mls/hr Documented by: [id number] Metoclopramide HCl (Metoclopramide Hcl Inj 5 Mg/Ml 2 Ml Vial) 10 mg IV NOW STA Stop: 07/06/20 14:00 Last Admin: 07/06/20 14:15 Dose: 10 mg Documented by: [id number] Discharge Plan Visit Data Chief Complaint: Syncope Stated Complaint: PASSING OUT, SICK IN STOMACH ED Provider: Sheldon Denis Discharge Problem: Acute renal failure, Recurrent syncope, Acute dehydration, Leukocytosis, Acute hypotension Forms Stand Alone Forms: [employer] Prescriptions Prescriptions: No Action Symbicort 160-4.5 mcg/actuation HFA aerosol inhaler 2 puffs INH BID Qty: 10.2 RF: 5 rizatriptan 10 mg tablet,disintegrating 10 mg PO UD PRN (Reason: Migraine Headache) RF: 0 albuterol sulfate 90 mcg/actuation HFA aerosol inhaler 2 puffs inhalation Q4H Qty: 1 RF: 0 cetirizine [Zyrtec] 10 mg tablet 10 mg PO DAILY PRN (Reason: allergies) Qty: 30 RF: 0 metoprolol succinate 50 mg tablet extended release 24 hr 50 mg PO DAILY RF: 0 multivitamin Tablet 1 tab PO DAILY RF: 0 furosemide 40 mg Tablet 40 mg PO 3XWK RF: 0 gabapentin 600 mg Tablet 600 mg PO TID RF: 0 amitriptyline 50 mg Tablet 50 mg PO DAILY RF: 0 potassium chloride 20 mEq tablet,ER particles/crystals 20 meq PO 3XWK RF: 0 simvastatin 20 mg Tablet 20 mg PO PM RF: 0 cholecalciferol (vitamin D3) [Vitamin D3] 1,000 unit Capsule 1,000 unit PO DAILY RF: 0 tizanidine 4 mg Capsule 4 mg PO HS PRN (Reason: Insomnia) RF: 0 valsartan-hydrochlorothiazide 80-12.5 mg tablet 1 tab PO DAILY RF: 0 pantoprazole 40 mg tablet,delayed release (DR/EC) 40 mg PO DAILY RF: 0 methimazole 5 mg tablet 5 mg PO DAILY RF: 0 oxycodone 5 mg tablet 5 mg PO QID RF: 0 famotidine 40 mg tablet 20 mg PO HS RF: 0 Discharge Problem: Acute renal failure Qualifiers: Acute renal failure type: unspecified Qualified Code(s): N17.9 - Acute kidney failure, unspecified Leukocytosis Qualifiers: Leukocytosis type: unspecified Qualified Code(s): D72.829 - Elevated white blood cell count, unspecified
[2020-07-06 14:21] LABS: BUN Creatinine Ratio 13.1 (10-20); Bilirubin Direct 0.1 mg/dl (0-0.2); Blood Urea Nitrogen 39 mg/dl (7-18); Calcium 9.3 mg/dl (8.5-10.1); Carbon Dioxide 33 mmol/L (21-32); Chloride 101 mmol/L (98-107); Est GFR (African American) 19.5; Est GFR (Non-African American) 16.8; Glucose 126 mg/dl (70-99); Lipase 99 U/L (73-393); Magnesium 1.8 mg/dl (1.8-2.4); Potassium 4.5 mmol/L (3.5-5.1); Sodium 140 mmol/L (136-145)
[2020-07-06 14:30] LABS: Alanine Aminotransferase 21 U/L (12-78); Albumin Globulin Ratio 0.8 (0.9-2); Alkaline Phosphatase 89 U/L (45-117); Aspartate Aminotransferase 10 U/L (15-37); Bilirubin,Total 0.5 mg/dl (0.2-1); Globulin 3.6 gm/dl (2.5-4.0); Total Protein 6.6 gm/dl (6.4-8.2); Troponin I < 0.015 ng/ml (0-0.045)
--- NOTE | 2020-07-06 14:36 | XRay Report ---
XR chest 1V portable HISTORY: 60 years-old Female weakness acute weakness COMPARISON: Chest radiograph 08/26/2018 TECHNIQUE: Portable upright AP view of the chest FINDINGS: Cardiomediastinal and hilar silhouettes are within normal limits. Calcified plaque of the thoracic ao rta. No pneumothorax, pleural effusion, airspace consolidation or overt pulmonary edema. Bones of the chest appear grossly intact. IMPRESSION: No acute process. ACT 112: Negative or not required by law. The above report was generated using voice recognition software. It may contain grammatical, syntax o r spelling errors. Electronically signed by: Mauricio Smith M.D. 07/06/2020 2:35 PM
[2020-07-06 15:55] LABS: Base Excess VBG 3.4 mEq/L; HCO3 VBG 31 mmol/L; PCO2 VBG 64 mmHg (38-50); PO2 VBG 37 mmHg; pH VBG 7.31 (7.36-7.41)
[2020-07-06 16:00] LABS: Oxygen Saturation VBG < 60.0 %
--- NOTE | 2020-07-06 16:13 | CT Scan Report ---
ABDOMEN AND PELVIS CT WITHOUT CONTRAST CT DOSE: 816.72 mGycm HISTORY: Acute generalized abdominal pain with nausea and syncope abd pain, syncope, nausea TECHNIQUE: Multiaxial CT images of the abdomen and pelvis were performed without contrast. A dose lo wering technique was utilized adhering to the principles of ALARA. COMPARISON STUDY: Chest radiograph of same day, chest CT 02/02/2018 FINDINGS: Imaged inferior cardiac chambers are unremarkable. Clear lung bases. No pneumatosis or pneu moperitoneum. The unenhanced spleen, mildly atrophic pancreas, adrenal glands and unenhanced liver ap pear unremarkable. Unremarkable gallbladder. Kidneys are within normal limits. Urinary bladder wall thickening with partial distention. Unremarkab le uterus and adnexa. Calcified plaque of the abdominal aorta without aneurysm. No adenopathy. No ret roperitoneal hematoma. There is no bowel obstruction or bowel wall thickening. No ascites or mesenteric formation. Colonic d iverticulosis without acute diverticulitis. Absent appendix. Unremarkable soft tissues. Demineralized appearance of the bones without acute fracture. Prior laminectomy with posterior interbody elissa and s crew fusion at L3-S1 with discectomy changes at L4-L5 and L5-S1. No hardware fracture or loosening. T he L3 pedicle screws partially extend through the superior endplate. Severe disc space narrowing at L 2-L3. IMPRESSION: 1. No acute intra-abdominal or intrapelvic abnormality. 2. No bowel obstruction or bowel wall thickening. 3. Posterior interbody elissa and screw fusion at L3-S1. The bilateral L3 pedicle screws partially exten d through the superior endplate of L3. 4. Additional findings as above. ACT 112: Negative or not required by law. The above report was generated using voice recognition software. It may contain grammatical, syntax o r spelling errors. Electronically signed by: Mauricio Smith M.D. 07/06/2020 4:12 PM
--- NOTE | 2020-07-06 17:05 | Electrocardiogram Report ---
Test Reason : Blood Pressure : / mmHG Vent. Rate : 089 BPM Atrial Rate : 089 BPM P-R Int : 144 ms QRS Dur : 078 ms QT Int : 338 ms P-R-T Axes : 083 079 077 degrees QTc Int : 411 ms Normal sinus rhythm Normal ECG When compared with ECG of 25-AUG-2018 10:20, No significant change was found Confirmed by Royce Mckeon ([id number]) on 07/06/2020 5:05:27 PM Referred By: REFERRED SELF Confirmed By:Royce Mckeon
[2020-07-06] MEDS ORDERED: cefTRIAXone SODIUM 2,000 MG/70 ML BAG IV STA (17:08)
--- NOTE | 2020-07-06 17:25 | History & Physical Report ---
Date of Service July 06, 2020 Assessment & Plan (1) Acute pyelonephritis: Ceftriaxone 1 g IV daily UA pending. Right CVA tenderness on exam. (2) Acute renal failure: Suspect mostly prerenal in the setting of right pyelonephritis, hydrochlorothiazide, Lasix and valsartan use. Continue IV fluids overnight. BMP in a.m. (3) Acute dehydration: (4) Pre-syncope: Secondary to hypertension due to medication. (5) COPD (chronic obstructive pulmonary disease): Scant wheezing on exam although this is apparently her baseline. No acute exacerbation. Appears to be poorly controlled taking albuterol regularly last seen by pulmonology in July 2019. At that time she was supposed to start Spiriva Respimat although patient has no recollection of this medication. Educated patient on the difference between maintenance and rescue inhalers. 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 (6) GERD (gastroesophageal reflux disease): Continue famotidine 20 mg p.o. daily (7) Hypertension: Patient has no history of heart failure, liver cirrhosis, CKD to suggest need for diuretics for leg swelling. Discontinued valsartan, hydrochlorothiazide, Lasix on admission. We will continue metoprolol with hold parameters. (8) DVT prophylaxis: Chemical prophylaxis deferred given young age and low risk. SCDs of dubious benefit Admission and Anticipated Discharge Date Admission Date: July 06, 2020 History of Present Illness Chief Complaint: Hypertension, presyncope Primary Care Provider: Wilman Ardon Krystin Jaffe is a 60-year-old female who presents to the ER with multiple presyncopal episodes since Thursday. She denies any complete loss of consciousness. She was at her PCP appointment today and noted to be dizzy with a systolic blood pressure in the 80s therefore was advised to come to the ER. She reports recently starting valsartan/hydrochlorothiazide in addition to her usual Lasix due to swelling in her legs. She started this medication yesterday and found immediately more dizzy. She also notes lower abdominal pain. Mild, worse on palpation, no radiation, no change with bowel movements or passing urine. She denies any dysuria, change in urinary frequency/smell/color. She denies any fevers or chills. In the ER she was noted to have a low systolic blood pressure in the 80s. She was given NSS 2L bolus with improvement of her blood pressure. Creatinine was noted to be elevated she was referred to medicine for admission and ongoing management Allergies Allergy/AdvReac Type Severity Reaction Status Date / Time No Known Allergies Allergy Unverified 07/06/20 17:18 Home Medications Medication Instructions Recorded Confirmed Type amitriptyline 50 mg PO DAILY 08/25/18 07/06/20 History cholecalciferol (vitamin D3) 1,000 unit PO DAILY 08/25/18 07/06/20 History [Vitamin D3] furosemide 40 mg PO 3XWK 08/25/18 07/06/20 History gabapentin 600 mg PO TID 08/25/18 07/06/20 History multivitamin 1 tab PO DAILY 08/25/18 07/06/20 History potassium chloride 20 meq PO 3XWK 08/25/18 07/06/20 History simvastatin 20 mg PO PM 08/25/18 07/06/20 History tizanidine 4 mg PO HS PRN 08/25/18 07/06/20 History albuterol sulfate 90 mcg/actuation 2 puffs INHALATION Q4H #1 gm 01/27/19 07/06/20 History aerosol inhaler cetirizine 10 mg tablet 10 mg PO DAILY PRN #30 tab 01/27/19 07/06/20 History metoprolol succinate 50 mg 50 mg PO DAILY tab 01/27/19 07/06/20 History tablet,extended release 24 hr rizatriptan 10 mg disintegrating 10 mg PO UD PRN tab 01/27/19 07/06/20 History tablet budesonide-formoterol HFA 160 2 puffs INH BID #10.2 gm 03/15/19 07/06/20 Rx mcg-4.5 mcg/actuation aerosol inhaler famotidine 20 mg PO HS 07/06/20 07/06/20 History methimazole 5 mg PO DAILY 07/06/20 07/06/20 History oxycodone 5 mg PO QID 07/06/20 07/06/20 History pantoprazole 40 mg PO DAILY 07/06/20 07/06/20 History valsartan-hydrochlorothiazide 1 tab PO DAILY 07/06/20 07/06/20 History Past Med/Surg History Medical History (Updated 07/07/20 @ 11:34 by Sky Lu MD) Acute bronchitis Asthma Chronic low back pain GERD (gastroesophageal reflux disease) Hyperlipidemia Hypertension Pneumonia Surgical History History of appendectomy Social History (Updated 07/07/20 @ 11:30 by Sky Lu MD) Smoking Status: Former smoker packs per day: 2.5; Number of Years Since Quit: 14; Hx Alcohol Use: No Hx Substance Use: No Preferred Language: Cambodian Communication Ability: Effective Seed Specialist Required: No Beliefs That Will Affect Care: None Current Living Situation: Spouse Other Information That Helps Us Care for You: No Feels Safe at Home: Yes Safety Concerns: Feels Safe At This Time Assistive Devices: None Review of Systems Review of Systems: All systems reviewed & are unremarkable except as noted in HPI & below Physical Exam Constitutional: well developed and + obese; no acute distress Eyes: + anicteric sclerae; normal pupil size ENMT: Mouth: + dry oral mucous membranes Neck: trachea midline Thyroid: + thyromegaly Respiratory: normal respiratory effort and able to speak in complete sentences; no respiratory distress, no labored breathing, no retractions, does not use accessory muscles, no cough and not tachypneic Auscultation: + wheezes (Mild expiratory wheezing throughout); no diminished lung sounds, no crackles, no rales and no rhonchi Cardiovascular: Rate/Rhythm: regular rhythm and + tachycardic Heart Sounds: no murmur Extremities: normal capillary refill; no calf tenderness and no pedal edema Gastrointestinal (Abdomen): Inspection/Auscultation: normal bowel sounds Percussion/Palpation: + abdomen tender (Suprapubic) and abdomen soft; no guarding and abdomen not rigid Musculoskeletal: no cyanosis or clubbing, extremities motor strength 5/5 Neurologic: moves all extremities and awake; no focal motor deficits and not confused Psychiatric: A+Ox3, euthymic affect Genitourinary: + CVA tenderness (Right) Results & Data Results & Data ([facility]) Vital Signs (Past 12 Hours) Vital Signs Temp Pulse Resp BP Pulse Ox 07/06/20 16:50 91 H 15 91 07/06/20 16:45 93 H 18 97/72 L 91 07/06/20 16:40 93 H 18 94 07/06/20 16:31 90 17 92 07/06/20 16:30 93 H 16 122/73 94 07/06/20 16:20 92 H 15 94 07/06/20 16:15 87 18 123/68 93 07/06/20 16:10 92 H 16 96 07/06/20 16:04 93 H 19 120/78 95 07/06/20 16:03 93 H 20 07/06/20 15:30 93 H 16 102/67 93 07/06/20 15:20 98 H 17 07/06/20 15:16 92 H 15 106/92 07/06/20 15:10 98 H 20 07/06/20 15:01 92 H 13 89 L 07/06/20 15:00 84 14 111/73 07/06/20 14:50 89 15 07/06/20 14:45 87 15 103/67 07/06/20 14:40 86 16 07/06/20 14:31 83 16 93 07/06/20 14:30 83 16 94/66 L 07/06/20 14:15 84 18 83/55 L 94 07/06/20 14:00 87 14 86/54 L 94 07/06/20 13:47 92 H 16 88/60 L 94 07/06/20 13:22 95 H 15 139/56 L 98 07/06/20 13:21 36.1 C L 110 H 16 73/53 L 77 L Diagnostic Findings XR chest 1V portable IMPRESSION: No acute process. ABDOMEN AND PELVIS CT WITHOUT CONTRAST IMPRESSION: 1. No acute intra-abdominal or intrapelvic abnormality. 2. No bowel obstruction or bowel wall thickening. 3. Posterior interbody elissa and screw fusion at L3-S1. The bilateral L3 pedicle screws partially extend through the superior endplate of L3. 4. Additional findings as above. Medications Administered ER medications given: NSS 2 oh bolus Acetaminophen 1 g IV Metoclopramide 10 mg IV Famotidine 20 mg IV ECG Indication: tachycardia Rate (beats per minute): 89 Rhythm: normal sinus Findings: no acute ischemic change Comparison ECG Date: from (August 25, 2018) Change: no significant change Code Status & VTE Plan Code Status Full VTE Prophylaxis Plan VTE Prophylaxis will be ordered: No PG Care Time/CCT Total # of Minutes Spent Total Time Spent with Patient: Total time spent is greater than 50% in coordination of care (as documented) at patient's floor/unit and/or counseling patient: Coding Level of Care Code 79894 Initial Inpt Care Lvl 3 Diagnoses Acute pyelonephritis N10 Acute renal failure N17.9 Acute renal failure type: unspecified Acute dehydration E86.0 Pre-syncope R55 COPD (chronic obstructive pulmonary disease) J44.9 GERD (gastroesophageal reflux disease) K21.9 Hypertension I10 DVT prophylaxis Z29.9 (1) Acute renal failure Acute renal failure type: unspecified Qualified Code(s): N17.9 - Acute kidney failure, unspecified
[2020-07-06] MEDS ORDERED: cefTRIAXone SODIUM 1,000 MG/50 ML BAG IV STA (17:33)
[2020-07-06 18:19] LABS: Appearance Urine Clear (Clear); Bacteria Urine Automated Negative (Negative); Bilirubin Urine Negative (Negative); Blood Urine Negative (Negative); Cast Urine Automated 0 /lpf (0-5); Color Urine Yellow; Glucose Urine UA Negative (Negative); Ketones Urine Negative (Negative); Leukocyte Esterase Urine Trace (Negative); Nitrite Urine Negative (Negative); Protein Urine Negative (Negative); RBC Urine Automated 0-4 /hpf (0-4); Specific Gravity Urine 1.011 (1.000-1.030); Urobilinogen Urine Negative (Negative)
[2020-07-06] MEDS ORDERED: SODIUM CHLORIDE 0.9% 1000ML 1,000 ML IV ONE (21:06)
[2020-07-06] MEDS ORDERED: oxyCODONE HCL IR 5 MG TAB (IMMEDIATE RELEASE) PO PRN (21:53)
[2020-07-06] MEDS ORDERED: ALBUTEROL HFA 8 GM INHALER INH PRN (21:53)
[2020-07-06] MEDS ORDERED: ONDANSETRON INJ 2 MG/ML 2 ML VIAL IV PRN (21:53)
[2020-07-06] MEDS ORDERED: tiZANidine HCL 4 MG TABLET PO PRN (21:53)
[2020-07-06] MEDS ORDERED: ALUMINUM/MAGNESIUM SUSP 30 ML UDC PO PRN (21:53)
[2020-07-06] MEDS ORDERED: POLYETHYLENE (MIRALAX) 17 GM PACK PO PRN (21:53)
[2020-07-06] MEDS ORDERED: ACETAMINOPHEN 325 MG TAB PO PRN (21:53)
[2020-07-06] MEDS: AMITRIPTYLINE HCL 50 MG TAB PO SCH (23:00)
[2020-07-06] MEDS: GABAPENTIN 600 MG TAB PO SCH (23:00)
[2020-07-06] MEDS: SIMVASTATIN 20 MG TAB PO SCH (23:01)
[2020-07-07] MEDS: NORMOSOL-R 1,000 ML IV SCH ×2 (01:53→10:36)
[2020-07-07] MEDS: MULTIVITAMIN TAB PO SCH (08:22)
[2020-07-07] MEDS: GABAPENTIN 600 MG TAB PO SCH ×3 (08:22→20:42)
[2020-07-07] MEDS: FLUTICASONE/VILANTEROL 200/25MCG 14 PUFFS/INHALER INH SCH (08:22)
[2020-07-07] MEDS: methIMAzole 5 MG TABLET PO SCH (08:22)
[2020-07-07] MEDS: METOPROLOL SUCC 50MG EXT REL TAB PO SCH (08:22)
[2020-07-07] MEDS: PANTOprazole 40 MG TAB PO SCH (08:22)
[2020-07-07] MEDS: CHOLECALCIFEROL 1,000 UNITS 25 MCG TAB PO SCH (08:22)
[2020-07-07 12:43] LABS: Hematocrit (blood only) 41.1 % (37-47); Hemoglobin 12.9 g/dL (12.0-16.0); Mean Corpuscular Hemoglobin 29.5 pg (25-34); Mean Corpuscular Hgb Conc 31.4 g/dL (32-36); Mean Corpuscular Volume 94.1 fL (80-100); Mean Platelet Volume 10.3 fL (7.4-10.4); Platelet Count 259 K/uL (130-400); RDW Coefficient of Variation 13.1 % (11.5-14.5); RDW Standard Deviation 45.1 fL (36.4-46.3); Red Blood Count 4.37 M/uL (4.2-5.4); White Blood Count 15.71 K/uL (4.8-10.8)
[2020-07-07 13:06] LABS: BUN Creatinine Ratio 14.1 (10-20); Calcium 8.9 mg/dl (8.5-10.1); Creatinine Clr Calc Pharmacy 36.4 ml/min; Est GFR (African American) 34.6; Est GFR (Non-African American) 29.9
[2020-07-07] MEDS: AMITRIPTYLINE HCL 50 MG TAB PO SCH (20:41)
[2020-07-07] MEDS: SIMVASTATIN 20 MG TAB PO SCH (20:43)
[2020-07-07] MEDS ORDERED: FAMOTIDINE 20 MG TAB PO SCH (21:00)
--- NOTE | 2020-07-07 21:43 | Hospitalist Progress Note ---
Date of Service July 07, 2020 Assessment & Plan (1) Acute pyelonephritis: Ceftriaxone 1 g IV daily UA is negative. Urine culture is pending. Right CVA tenderness on exam. will continue antibiotics. no abscess on imaging.WBC is improving as well as kidney failure. (2) Acute renal failure: Suspect mostly prerenal in the setting of right pyelonephritis, hydrochlorothiazide, Lasix and valsartan use. Continue IV fluids . improving. (3) Acute dehydration: (4) Pre-syncope: Secondary to hypertension due to medication. (5) COPD (chronic obstructive pulmonary disease): Scant wheezing on exam although this is apparently her baseline. No acute exacerbation. Appears to be poorly controlled taking albuterol regularly last seen by pulmonology in July 2019. At that time she was supposed to start Spiriva Respimat although patient has no recollection of this medication. Educated patient on the difference between maintenance and rescue inhalers. 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 (6) GERD (gastroesophageal reflux disease): Continue famotidine 20 mg p.o. daily (7) Hypertension: Patient has no history of heart failure, liver cirrhosis, CKD to suggest need for diuretics for leg swelling. Discontinued valsartan, hydrochlorothiazide, Lasix on admission. We will continue metoprolol with hold parameters. (8) DVT prophylaxis: Chemical prophylaxis deferred given young age and low risk. SCDs of dubious benefit Admission and Anticipated Discharge Date Admission Date: July 06, 2020 Subjective Patient reports feeling well. She has no new complaints. Review of Systems Review of Systems: All systems reviewed & are unremarkable except as noted in HPI & below Physical Exam Physical Exam: Constitutional: well developed Eyes: + anicteric sclerae; normal pupil size ENMT: Mouth: + dry oral mucous membranes Neck: trachea midline Thyroid: + thyromegaly Respiratory: normal respiratory effort and able to speak in complete sentences; no respiratory distress, no labored breathing, no retractions, does not use accessory muscles, no cough and not tachypneic Auscultation: + wheezes (Mild expiratory wheezing throughout); no diminished lung sounds, no crackles, no rales and no rhonchi Cardiovascular: Rate/Rhythm: regular rhythm and + tachycardic Heart Sounds: no murmur Extremities: normal capillary refill; no calf tenderness and no pedal edema Gastrointestinal (Abdomen): Inspection/Auscultation: normal bowel sounds Percussion/Palpation: (Suprapubic) and abdomen soft; no guarding and abdomen not rigid Musculoskeletal: no cyanosis or clubbing, extremities motor strength 5/5 Neurologic: moves all extremities and awake; no focal motor deficits and not confused Psychiatric: A+Ox3, euthymic affect Genitourinary: + decreased CVA tenderness (Right) Results & Data Results & Data ([facility]) Vital Signs (Past 12 Hours) Vital Signs Temp Pulse Pulse Resp BP Pulse Ox 07/07/20 19:19 36.6 C 90 18 118/78 93 07/07/20 15:05 87 07/07/20 11:07 36.5 C 76 17 101/66 95 07/07/20 09:46 84 PG Care Time/CCT Total # of Minutes Spent Total Time Spent with Patient: Total time spent is greater than 50% in coordination of care (as documented) at patient's floor/unit and/or counseling patient: Coding Level of Care Code 15779 Subseq Hosp Care Lvl 3 Diagnoses Acute pyelonephritis N10 Acute renal failure N17.9 Acute renal failure type: unspecified Acute dehydration E86.0 Pre-syncope R55 COPD (chronic obstructive pulmonary disease) J44.9 GERD (gastroesophageal reflux disease) K21.9 Hypertension I10 DVT prophylaxis Z29.9 Time Spent (min) 35 (1) Acute renal failure Acute renal failure type: unspecified Qualified Code(s): N17.9 - Acute kidney failure, unspecified
[2020-07-08] MEDS: FLUTICASONE/VILANTEROL 200/25MCG 14 PUFFS/INHALER INH SCH (08:09)
[2020-07-08] MEDS: METOPROLOL SUCC 50MG EXT REL TAB PO SCH (08:10)
[2020-07-08] MEDS: CHOLECALCIFEROL 1,000 UNITS 25 MCG TAB PO SCH (08:10)
[2020-07-08] MEDS: PANTOprazole 40 MG TAB PO SCH (08:10)
[2020-07-08] MEDS: GABAPENTIN 600 MG TAB PO SCH ×2 (08:10→13:12)
[2020-07-08] MEDS: methIMAzole 5 MG TABLET PO SCH (08:10)
[2020-07-08] MEDS: MULTIVITAMIN TAB PO SCH (08:10)
[2020-07-08 08:11] LABS: Basophils # (auto) 0.02 K/uL (0-0.2); Basophils % (auto) 0.2 %; Eosinophils # (auto) 0.16 K/uL (0-0.5); Eosinophils % (auto) 1.3 %; Hematocrit (blood only) 40.2 % (37-47); Hemoglobin 12.7 g/dL (12.0-16.0); Immature Granulocytes # (auto) 0.13 K/uL (0.00-0.02); Lymphocytes # (auto) 2.32 K/uL (1.2-3.4); Lymphocytes % (auto) 18.3 %; Mean Corpuscular Hemoglobin 29.7 pg (25-34); Mean Corpuscular Hgb Conc 31.6 g/dL (32-36); Mean Corpuscular Volume 93.9 fL (80-100); Mean Platelet Volume 10.6 fL (7.4-10.4); Monocytes # (auto) 0.68 K/uL (0.11-0.59); Monocytes % (auto) 5.4 %; Neutrophils # (auto) 9.38 K/uL (1.4-6.5); Neutrophils % (auto) 73.8 %; Platelet Count 257 K/uL (130-400); RDW Standard Deviation 44.6 fL (36.4-46.3); Red Blood Count 4.28 M/uL (4.2-5.4); White Blood Count 12.69 K/uL (4.8-10.8)
[2020-07-08 08:29] LABS: Albumin Level 2.7 gm/dl (3.4-5.0); BUN Creatinine Ratio 14.2 (10-20); Calcium 9.3 mg/dl (8.5-10.1); Creatinine Clr Calc Pharmacy 46.5 ml/min; Est GFR (African American) 46.7; Est GFR (Non-African American) 40.3; Potassium 4.5 mmol/L (3.5-5.1)
[2020-07-08 08:32] LABS: Albumin Globulin Ratio 0.8 (0.9-2); Bilirubin,Total 0.3 mg/dl (0.2-1); Globulin 3.5 gm/dl (2.5-4.0); Total Protein 6.2 gm/dl (6.4-8.2)
[2020-07-08] MEDS ORDERED: UMECLIDINIUM BROMIDE 62.5MCG/BLISTER 7 PUFFS/INHALER INH SCH (09:00)
[2020-07-08] MEDS ORDERED: LACTATED RINGER'S 500 ML IV ONE (12:24)
[2020-07-08] MEDS ORDERED: CEFDINIR 300 MG CAP PO ONE (13:45)
--- NOTE | 2020-07-15 23:09 | Discharge Summary ---
Date of Service July 08, 2020 Admission HPI Per Admitting Provider Krystin Jaffe is a 60-year-old female who presents to the ER with multiple presyncopal episodes since Thursday. She denies any complete loss of consciousness. She was at her PCP appointment today and noted to be dizzy with a systolic blood pressure in the 80s therefore was advised to come to the ER. She reports recently starting valsartan/hydrochlorothiazide in addition to her usual Lasix due to swelling in her legs. She started this medication yesterday and found immediately more dizzy. She also notes lower abdominal pain. Mild, worse on palpation, no radiation, no change with bowel movements or passing urine. She denies any dysuria, change in urinary frequency/smell/color. She denies any fevers or chills. In the ER she was noted to have a low systolic blood pressure in the 80s. She was given NSS 2L bolus with improvement of her blood pressure. Creatinine was noted to be elevated she was referred to medicine for admission and ongoing management Principal Diagnosis acute pyelonephritis Discharge Exam Constitutional: well developed Eyes: + anicteric sclerae; normal pupil size ENMT: Mouth: + dry oral mucous membranes Neck: trachea midline Thyroid: + thyromegaly Respiratory: normal respiratory effort and able to speak in complete sentences; no respiratory distress, no labored breathing, no retractions, does not use accessory muscles, no cough and not tachypneic Auscultation: + wheezes (Mild expiratory wheezing throughout); no diminished lung sounds, no crackles, no rales and no rhonchi Cardiovascular: Rate/Rhythm: regular rhythm and + tachycardic Heart Sounds: no murmur Extremities: normal capillary refill; no calf tenderness and no pedal edema Gastrointestinal (Abdomen): Inspection/Auscultation: normal bowel sounds Percussion/Palpation: (Suprapubic) and abdomen soft; no guarding and abdomen not rigid Musculoskeletal: no cyanosis or clubbing, extremities motor strength 5/5 Neurologic: moves all extremities and awake; no focal motor deficits and not confused Psychiatric: A+Ox3, euthymic affect Genitourinary: no CVA tenderness (Right) Discharge Data Allergies Allergy/AdvReac Type Severity Reaction Status Date / Time No Known Allergies Allergy Unverified 07/06/20 17:18 Consultations 07/06/20 16:27 ED Decision to Admit Stat Ordered Studies 07/06/20 14:06 CT abd pelvis wo con Stat Hospital Course (1) Acute pyelonephritis: Ceftriaxone 1 g IV daily UA is negative. Urine culture pending. Right CVA tenderness improved. will continue antibiotics as outpatient. no abscess on imaging.WBC is improving as well as kidney failure. patient agreeable for discharge (2) Acute renal failure: Suspect mostly prerenal in the setting of right pyelonephritis, hydrochlorothiazide, Lasix and valsartan use. Continue IV fluids . improving. (3) Acute dehydration: (4) Pre-syncope: Secondary to hypertension due to medication. (5) COPD (chronic obstructive pulmonary disease): Scant wheezing on exam although this is apparently her baseline. No acute exacerbation. Appears to be poorly controlled taking albuterol regularly last seen by [facility] in July 2019. At that time she was supposed to start Spiriva Respimat although patient has no recollection of this medication. Educated patient on the difference between maintenance and rescue inhalers. 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 (6) GERD (gastroesophageal reflux disease): Continue famotidine 20 mg p.o. daily (7) Hypertension: Patient has no history of heart failure, liver cirrhosis, CKD to suggest need for diuretics for leg swelling. Discontinued valsartan, hydrochlorothiazide, Lasix on admission. We will continue metoprolol with hold parameters. (8) DVT prophylaxis: Chemical prophylaxis deferred given young age and low risk. SCDs of dubious benefit Total Time Total Time Spent Total Time Spent (In Minutes): 32 Discharge Plan Discharge Items Patient Disposition: Home - Self-Care Reason For Visit: UTI SEPSIS, PYELONEPHRITIS Discharge Diagnosis: UTI Activity: Resume your previous activity Non-emergency contact: Primary Care Provider Call non-emergency contact if: you have any medication questions Follow-up/Referrals: Wilman Ardon PA-C [Primary Care Provider] - (OFFICE WILL CALL YOU WITH A FOLLOW UP APT. ) Diet: Regular Addtl Attending Provider Instructions: continue antibiotics for 10 more days. If symptoms of pain and fever return, call you doctor or return to ED. Pending Studies at Discharge: No Stand-Alone Forms: Safe[employer]ent, Smoking Cessation Medications and DC Order Prescriptions: New cefdinir 300 mg capsule 300 mg PO BID 10 Days Qty: 20 RF: 0 Continued Symbicort 160-4.5 mcg/actuation HFA aerosol inhaler 2 puffs INH BID Qty: 10.2 RF: 5 rizatriptan 10 mg tablet,disintegrating 10 mg PO UD PRN (Reason: Migraine Headache) RF: 0 albuterol sulfate 90 mcg/actuation HFA aerosol inhaler 2 puffs inhalation Q4H Qty: 1 RF: 0 cetirizine [Zyrtec] 10 mg tablet 10 mg PO DAILY PRN (Reason: allergies) Qty: 30 RF: 0 metoprolol succinate 50 mg tablet extended release 24 hr 50 mg PO DAILY RF: 0 multivitamin Tablet 1 tab PO DAILY RF: 0 furosemide 40 mg Tablet 40 mg PO 3XWK RF: 0 gabapentin 600 mg Tablet 600 mg PO TID RF: 0 amitriptyline 50 mg Tablet 50 mg PO DAILY RF: 0 potassium chloride 20 mEq tablet,ER particles/crystals 20 meq PO 3XWK RF: 0 simvastatin 20 mg Tablet 20 mg PO PM RF: 0 cholecalciferol (vitamin D3) [Vitamin D3] 1,000 unit Capsule 1,000 unit PO DAILY RF: 0 tizanidine 4 mg Capsule 4 mg PO HS PRN (Reason: Insomnia) RF: 0 pantoprazole 40 mg tablet,delayed release (DR/EC) 40 mg PO DAILY RF: 0 methimazole 5 mg tablet 5 mg PO DAILY RF: 0 oxycodone 5 mg tablet 5 mg PO QID RF: 0 famotidine 40 mg tablet 20 mg PO HS RF: 0 Discontinued valsartan-hydrochlorothiazide 80-12.5 mg tablet 1 tab PO DAILY RF: 0 Discharge Orders: Discharge Order (Routine); Ordered 07/08/20 Ordered By: Fran Valentin/Other Patient Handouts: Understanding Urinary Tract ..., Dehydration, ED Pyelonephritis, Female (Adult) Admission Data Admit Date/Time: 07/06/20 21:11 Attending Provider: Fran Mckeon Admit Provider: Sky Lu Primary Care Provider: Wilman Ardon Other Providers: Sky Lu Other Interventions: Discharge Summary Assessment (RN) Last Done: 07/08/20 13:39 Coding Level of Care Code D/C Day Management >30 mins Diagnoses Acute pyelonephritis N10 Acute renal failure N17.9 Acute renal failure type: unspecified Acute dehydration E86.0 Pre-syncope R55 COPD (chronic obstructive pulmonary disease) J44.9 GERD (gastroesophageal reflux disease) K21.9 Hypertension I10 DVT prophylaxis Z29.9 Time Spent (min) 32
== END 2020-07-08 14:17 | disposition home or self-care (01) | DRG 690 ==
LOC: ED 13:15 → SUATTDRO 21:11 → 2S 21:11

== ENCOUNTER 2021-03-17 09:52 | Inpatient (IN) ==
[2021-03-17] MEDS ORDERED: dexAMETHasone**PF** 10 MG/ML VIAL IV ONE (10:11)
[2021-03-17] MEDS ORDERED: SODIUM CHLORIDE 0.9% 1000ML 500 ML IV ONE (10:21)
[2021-03-17] MEDS ORDERED: ALBUT/IPRATROP 3MG/0.5MG NEB 3 ML VIAL NEB ONE (10:21)
--- NOTE | 2021-03-17 10:40 | Emergency Department Note ---
Impression & Plan Acute exacerbation of chronic obstructive pulmonary disease, Hypoxia, Acute hypotension, COVID-19 virus infection, Acute bronchitis, Acute respiratory acidosis ED Provider Note NAME: JAIMIE JACKSON AGE: 60 SEX: F : 1960 ARRIVES VIA: Walk-In INFORMANT: Patient, ED PROVIDER(S): Royce Waggoner DO CHIEF COMPLAINT: Difficulty breathing HPI: The patient is a 60-year-old female who presented to the emergency department for an evaluation of difficulty breathing. The patient states that she has a history of COPD. She is noticed difficulty breathing has been worsening over the course of the last few days. She states she started having a very severe cough. She is noticed some posttussive emesis but also posttussive dizziness and lightheadedness. She feels that she might pass out. She states she does not wear oxygen at home. She has not been on steroids recently. The patient states that she has been using all of her usual outpatient medications with only minimal relief. The patient has not been seen by her primary care physician. She states symptoms are worsened with exertion. She does complain of significant chest pain but only with coughing. She denies having any lower extremity swelling. ROS: See above HPI for pertinent positives & negatives. A total of 10 systems reviewed and were otherwise negative. PAST MEDICAL HISTORY: See Below PAST SURGICAL HISTORY: See Below FAMILY HISTORY: See Below SOCIAL HISTORY: See Below HOME MEDICATIONS: See Below ALLERGIES: See Below VITALS: See Below PHYSICAL EXAMINATION: GENERAL: The patient is awake and alert. The patient is somewhat anxious ap pearing. EYES: The conjunctivae are clear. The pupils are round and reactive. EARS, NOSE, MOUTH AND THROAT: The nose is without any evidence of any deformity. NECK: The neck is nontender and supple. RESPIRATORY: Significantly diminished breath sounds are noted throughout. There was significant conversational dyspnea as well as tachypnea. CARDIOVASCULAR: Regular rate and rhythm noted there no murmurs rubs or gallops normal S1 normal S2. GASTROINTESTINAL: The abdomen is soft. Abdomen is nontender. MUSCULOSKELETAL/EXTREMITIES: There is no evidence of gross deformity full range of motion is noted in the hips and shoulders. SKIN: There is no obvious evidence of any rash. There are no petechiae, pallor or cyanosis noted. Pulses were symmetric in both feet. There was no calf tenderness. NEUROLOGIC: Patient is awake alert and oriented x3. MEDICAL DECISION MAKING: The patient is a 60-year-old female who presented to the emergency department for an evaluation of shortness of breath. The patient has a history of COPD. The patient was hypoxic as well as hypotensive. She was treated with IV fluids and IV antibiotics. Chest x-ray did not show any signs of pulmonary edema. The patient was found to have a positive Covid. The patient was feeling much better on subsequent reevaluation. On supplemental oxygen her hypoxia was significantly improved. She received IV fluids. She received IV antibiotics. I discussed her condition with the on-call [facility]. They have agreed to evaluate the patient in the emergency department for further management and disposition. Triage Nursing notes reviewed. Prior medical records reviewed Vital Signs: reviewed and remarkable for hypotension, tachycardia and hypoxia. Differential diagnosis: Reactive airway disease, pneumonia, pneumothorax, COPD, CHF, infections, cardiac ischemia, pulmonary embolism, musculoskeletal, gastrointestinal, as well as other pathologies. ER treatment provided: See below Diagnostics interpreted by me: ECG: EKG was obtained in the emergency department. My interpretation is normal sinus rhythm at 85 bpm. There was no ectopy. There was no acute ST segment abnormalities noted. High lateral T wave abnormalities were appreciated. This was compared to a tracing from August 082020. No significant changes were noted. Cardiac Monitoring: An order was placed for continuous cardiac monitoring. The monitor shows a rate of 101 bpm with sinus tachycardia rhythm. Laboratory studies: As stated above and show below. Imaging studies: See below Consultation(s): I discussed this case with Dr. Lu who is on-call for the [facility] group. ED COURSE: Procedures: none PDMP:reviewed and no issues Critical Care: I have personally spent greater than 35 minutes of critical care time in the direct management of this patient. This includes bedside care, interpretation of diagnostic studies, and testing, discussion with consultants, patient, and family members, and other required patient management activities. This 35 minutes is in excess of all separately billable procedures. Past Med/Surg History Medical History Anxiety Asthma Chronic low back pain COPD (chronic obstructive pulmonary disease) Crohns disease Depression DM type 2 (diabetes mellitus, type 2) GERD (gastroesophageal reflux disease) diet controlled History of colitis History of migraine Hyperlipidemia Hypertension LALO (obstructive sleep apnea) CPAP Ovarian cyst Surgical History History of appendectomy History of carpal tunnel surgery BL History of colonoscopy History of D&C History of esophagogastroduodenoscopy (EGD) History of lumbar surgery x 5; hardware present History of tooth extraction History of tubal ligation Family History Brother Diabetes Father Diabetes Other No family history of adverse response to anesthesia Social History Smoking Status: Former smoker packs per day: 2.5; Number of Years Since Quit: 14; Second Hand Exposure: No; Hx Alcohol Use: No Hx Substance Use: No Preferred Language: Thai Communication Ability: Effective Editor Managing Director Required: No Beliefs That Will Affect Care: None Current Living Situation: Spouse Feels Safe at Home: Yes Assistive Devices: Denture - Upper and Denture - Lower Allergies Allergies Allergy/AdvReac Type Severity Reaction Status Date / Time No Known Allergies Allergy Verified 02/21/21 09:17 Home Meds Home Medications Medication Instructions Recorded Confirmed amitriptyline 50 mg tablet 50 mg PO HS 08/25/18 03/17/21 cholecalciferol (vitamin D3) 25 1,000 unit PO QAM 08/25/18 03/17/21 mcg (1,000 unit) capsule (Vitamin D3) oxycodone 5 mg tablet 5 mg PO Q12H 07/06/20 03/17/21 bupropion HCl 150 mg 24 hr tablet, 150 mg PO QAM 08/08/20 03/17/21 extended release multivit-iron 18 mg-folic acid 400 1 tab PO QAM 08/08/20 03/17/21 mcg-calcium 500 mg-minerals tablet (Women's One Daily) pregabalin 25 mg capsule (Lyrica) 25 mg PO QAM 01/16/21 03/17/21 glipizide 2.5 mg tablet, extended 2.5 mg PO QDD 02/15/21 03/17/21 release 24 hr mercaptopurine 50 mg tablet 50 mg PO QAM 02/15/21 03/17/21 pantoprazole 40 mg tablet,delayed 40 mg PO QAM 02/15/21 03/17/21 release (Protonix) atorvastatin 40 mg tablet 40 mg PO HS 03/17/21 03/17/21 infliximab 100 mg intravenous 100 mg IV [id number] 03/17/21 03/17/21 solution (Remicade) metoprolol succinate 25 mg 25 mg PO QAM 03/17/21 03/17/21 tablet,extended release 24 hr trazodone 50 mg tablet 50 mg PO HS 03/17/21 03/17/21 Previous Rx's Medication Instructions Recorded ipratropium 0.5 mg-albuterol 3 mg 3 ml INHALATION Q8H PRN #180 ml 09/12/20 (2.5 mg base)/3 mL nebulization soln albuterol sulfate 90 mcg/actuation 2 puff INHALATION Q4H PRN #8.5 g 02/12/21 aerosol inhaler Results & Data (ED) Vital Signs Vital Signs - 24 hr 03/17/21 10:01 03/17/21 10:32 03/17/21 10:45 Temperature 36.9 C Temperature Source Temporal Artery Scan Pulse Rate 89 87 Pulse Rate [Apical] 85 Pulse Rate from SpO2 Sensor 87 Pulse Rhythm Respiratory Rate 16 18 17 Respiratory Effort / Characteristics Spontaneous Blood Pressure 76/53 L Blood Pressure Mean 60 Blood Pressure Position Sitting Pulse Oximetry 89 L 96 100 Oxygen Delivery Method Room Air Nasal Cannula Nebulizer Oxygen Flow Rate 2 Sepsis Recent Fever Within 48 Hours No Sepsis New/Unexplained Change in Mental Status No Sepsis Action Taken by Nursing No Action Required 03/17/21 10:55 03/17/21 11:00 03/17/21 11:09 Temperature Temperature Source Pulse Rate 92 H Pulse Rate [Apical] Pulse Rate from SpO2 Sensor 92 H Pulse Rhythm Respiratory Rate 21 27 H Respiratory Effort / Characteristics Non-Labored Non-Labored Blood Pressure 113/76 Blood Pressure Mean 88 Blood Pressure Position Pulse Oximetry 86 L 100 91 Oxygen Delivery Method Room Air Nebulizer Room Air Oxygen Flow Rate Sepsis Recent Fever Within 48 Hours Sepsis New/Unexplained Change in Mental Status Sepsis Action Taken by Nursing 03/17/21 11:15 03/17/21 11:30 03/17/21 11:45 Temperature Temperature Source Pulse Rate 106 H 105 H 106 H Pulse Rate [Apical] Pulse Rate from SpO2 Sensor 105 H 105 H 106 H Pulse Rhythm Respiratory Rate 24 26 H 25 H Respiratory Effort / Characteristics Non-Labored Blood Pressure 127/71 116/65 124/67 Blood Pressure Mean 89 82 86 Blood Pressure Position Pulse Oximetry 100 95 100 Oxygen Delivery Method Nebulizer Nasal Cannula Nebulizer Oxygen Flow Rate 2 Sepsis Recent Fever Within 48 Hours Sepsis New/Unexplained Change in Mental Status Sepsis Action Taken by Nursing 03/17/21 12:00 03/17/21 12:04 03/17/21 12:15 Temperature Temperature Source Pulse Rate 110 H 104 H 106 H Pulse Rate [Apical] Pulse Rate from SpO2 Sensor 108 H 107 H Pulse Rhythm Regular Respiratory Rate 22 27 H 22 Respiratory Effort / Characteristics Non-Labored Blood Pressure Blood Pressure Mean Blood Pressure Position Pulse Oximetry 95 92 91 Oxygen Delivery Method Nasal Cannula Room Air Nasal Cannula Oxygen Flow Rate 2 2 Sepsis Recent Fever Within 48 Hours Sepsis New/Unexplained Change in Mental Status Sepsis Action Taken by Nursing 03/17/21 12:30 03/17/21 12:45 03/17/21 13:00 Temperature Temperature Source Pulse Rate 109 H 103 H 102 H Pulse Rate [Apical] Pulse Rate from SpO2 Sensor 109 H 104 H 102 H Pulse Rhythm Respiratory Rate 22 21 22 Respiratory Effort / Characteristics Non-Labored Non-Labored Blood Pressure 111/69 104/62 Blood Pressure Mean 83 76 Blood Pressure Position Pulse Oximetry 90 94 95 Oxygen Delivery Method Nasal Cannula Nasal Cannula Nasal Cannula Oxygen Flow Rate 2 2 2 Sepsis Recent Fever Within 48 Hours Sepsis New/Unexplained Change in Mental Status Sepsis Action Taken by Nursing 03/17/21 13:15 Temperature Temperature Source Pulse Rate 101 H Pulse Rate [Apical] Pulse Rate from SpO2 Sensor 101 H Pulse Rhythm Respiratory Rate 24 Respiratory Effort / Characteristics Blood Pressure 96/63 L Blood Pressure Mean 74 Blood Pressure Position Pulse Oximetry 92 Oxygen Delivery Method Nasal Cannula Oxygen Flow Rate 2 Sepsis Recent Fever Within 48 Hours Sepsis New/Unexplained Change in Mental Status Sepsis Action Taken by Care Home Medications Current Medication List: was personally reviewed by me Laboratory Data Attestation: I reviewed the patient's lab results. Result diagrams: 03/17/21 10:40 03/17/21 10:40 Lab Results 03/17/21 03/17/21 03/17/21 Range/Units 10:35 10:35 10:40 WBC (4.8-10.8) K/uL RBC (4.2-5.4) M/uL Hgb (12.0-16.0) g/dL Hct (37-47) % MCV (80-100) fL MCH (25-34) pg MCHC (32-36) g/dL RDW Std Deviation (36.4-46.3) fL RDW Coeff of Dougie (11.5-14.5) % Plt Count (130-400) K/uL MPV (7.4-10.4) fL Immature Gran % (Auto) % Neut % (Auto) % Lymph % (Auto) % Moody % (Auto) % Eos % (Auto) % Baso % (Auto) % Neut # (Auto) (1.4-6.5) K/uL Lymph # (Auto) (1.2-3.4) K/uL Moody # (Auto) (0.11-0.59) K/uL Eos # (Auto) (0-0.5) K/uL Baso # (Auto) (0-0.2) K/uL Immature Gran # (Auto) (0.00-0.02) K/uL PT (9.0-12.0) Seconds INR (0.9-1.1) APTT (21.0-31.0) Seconds PTT Ratio D-Dimer (0-500) ug/L FEU VBG pH (7.36-7.41) VBG pCO2 (38-50) mmHg VBG pO2 mmHg VBG HCO3 mmol/L VBG O2 Saturation % VBG Base Excess mEq/L Barometric Pressure mm/Hg Sodium 135 L (136-145) mmol/L Potassium 4.0 (3.5-5.1) mmol/L Chloride 105 (98-107) mmol/L Carbon Dioxide 31 (21-32) mmol/L Anion Gap -1.0 L (3-11) BUN 11 (7-18) mg/dl Creatinine 1.19 (0.6-1.2) mg/dl Est Cr Clr Drug Dosing 53.4 ml/min Est GFR ( Amer) 58.3 ml/min Est GFR (Non-Af Amer) 50.3 ml/min BUN/Creatinine Ratio 9.5 L (10-20) Glucose 86 (70-99) mg/dl Lactate (0.4-2.0) mmol/L Calcium 8.0 L (8.5-10.1) mg/dl Magnesium 1.9 (1.8-2.4) mg/dl Total Bilirubin 0.3 (0.2-1) mg/dl AST 20 (15-37) U/L ALT 19 (12-78) U/L Alkaline Phosphatase 96 (45-117) U/L Troponin I < 0.015 (0-0.045) ng/ml Total Protein 6.7 (6.4-8.2) gm/dl Albumin 3.0 L (3.4-5.0) gm/dl Globulin 3.7 (2.5-4.0) gm/dl Albumin/Globulin Ratio 0.8 L (0.9-2) Procalcitonin (0-0.5) ng/ml Urine Color Urine Appearance (Clear) Urine pH (4.5-7.5) Ur Specific [place] (1.000-1.030) Urine Protein (Negative) Urine Glucose (UA) (Negative) Urine Ketones (Negative) Urine Blood (Negative) Urine Nitrite (Negative) Urine Bilirubin (Negative) Urine Urobilinogen (Negative) Ur Leukocyte Esterase (Negative) Urine WBC (Auto) (0-5) /hpf Urine RBC (Auto) (0-4) /hpf U Hyaline Cast (Auto) (0-5) /lpf U Epithel Cells (Auto) (0-5) /lpf Urine Bacteria (Auto) (Negative) COVID-19 Eval Order Covid19 at [facility] SARS-CoV-2 (PCR) POSITIVE A* (Negative) 03/17/21 03/17/21 03/17/21 Range/Units 10:40 10:40 10:40 WBC 3.21 L (4.8-10.8) K/uL RBC 4.18 L (4.2-5.4) M/uL Hgb 12.8 (12.0-16.0) g/dL Hct 39.2 (37-47) % MCV 93.8 (80-100) fL MCH 30.6 (25-34) pg MCHC 32.7 (32-36) g/dL RDW Std Deviation 46.6 H (36.4-46.3) fL RDW Coeff of Dougie 13.6 (11.5-14.5) % Plt Count 163 (130-400) K/uL MPV 9.9 (7.4-10.4) fL Immature Gran % (Auto) 0.3 % Neut % (Auto) 61.4 % Lymph % (Auto) 26.2 % Moody % (Auto) 11.2 % Eos % (Auto) 0.6 % Baso % (Auto) 0.3 % Neut # (Auto) 1.97 (1.4-6.5) K/uL Lymph # (Auto) 0.84 L (1.2-3.4) K/uL Moody # (Auto) 0.36 (0.11-0.59) K/uL Eos # (Auto) 0.02 (0-0.5) K/uL Baso # (Auto) 0.01 (0-0.2) K/uL Immature Gran # (Auto) 0.01 (0.00-0.02) K/uL PT 10.1 (9.0-12.0) Seconds INR 1.0 (0.9-1.1) APTT 33.0 H (21.0-31.0) Seconds PTT Ratio 1.3 D-Dimer 450 (0-500) ug/L FEU VBG pH (7.36-7.41) VBG pCO2 (38-50) mmHg VBG pO2 mmHg VBG HCO3 mmol/L VBG O2 Saturation % VBG Base Excess mEq/L Barometric Pressure mm/Hg Sodium (136-145) mmol/L Potassium (3.5-5.1) mmol/L Chloride (98-107) mmol/L Carbon Dioxide (21-32) mmol/L Anion Gap (3-11) BUN (7-18) mg/dl Creatinine (0.6-1.2) mg/dl Est Cr Clr Drug Dosing ml/min Est GFR ( Amer) ml/min Est GFR (Non-Af Amer) ml/min BUN/Creatinine Ratio (10-20) Glucose (70-99) mg/dl Lactate (0.4-2.0) mmol/L Calcium (8.5-10.1) mg/dl Magnesium (1.8-2.4) mg/dl Total Bilirubin (0.2-1) mg/dl AST (15-37) U/L ALT (12-78) U/L Alkaline Phosphatase (45-117) U/L Troponin I (0-0.045) ng/ml Total Protein (6.4-8.2) gm/dl Albumin (3.4-5.0) gm/dl Globulin (2.5-4.0) gm/dl Albumin/Globulin Ratio (0.9-2) Procalcitonin < 0.05 (0-0.5) ng/ml Urine Color Urine Appearance (Clear) Urine pH (4.5-7.5) Ur Specific [place] (1.000-1.030) Urine Protein (Negative) Urine Glucose (UA) (Negative) Urine Ketones (Negative) Urine Blood (Negative) Urine Nitrite (Negative) Urine Bilirubin (Negative) Urine Urobilinogen (Negative) Ur Leukocyte Esterase (Negative) Urine WBC (Auto) (0-5) /hpf Urine RBC (Auto) (0-4) /hpf U Hyaline Cast (Auto) (0-5) /lpf U Epithel Cells (Auto) (0-5) /lpf Urine Bacteria (Auto) (Negative) COVID-19 Eval Order SARS-CoV-2 (PCR) (Negative) 03/17/21 03/17/21 03/17/21 Range/Units 10:56 10:56 12:40 WBC (4.8-10.8) K/uL RBC (4.2-5.4) M/uL Hgb (12.0-16.0) g/dL Hct (37-47) % MCV (80-100) fL MCH (25-34) pg MCHC (32-36) g/dL RDW Std Deviation (36.4-46.3) fL RDW Coeff of Dougie (11.5-14.5) % Plt Count (130-400) K/uL MPV (7.4-10.4) fL Immature Gran % (Auto) % Neut % (Auto) % Lymph % (Auto) % Moody % (Auto) % Eos % (Auto) % Baso % (Auto) % Neut # (Auto) (1.4-6.5) K/uL Lymph # (Auto) (1.2-3.4) K/uL Moody # (Auto) (0.11-0.59) K/uL Eos # (Auto) (0-0.5) K/uL Baso # (Auto) (0-0.2) K/uL Immature Gran # (Auto) (0.00-0.02) K/uL PT (9.0-12.0) Seconds INR (0.9-1.1) APTT (21.0-31.0) Seconds PTT Ratio D-Dimer (0-500) ug/L FEU VBG pH 7.31 L (7.36-7.41) VBG pCO2 61 H (38-50) mmHg VBG pO2 31 mmHg VBG HCO3 30 mmol/L VBG O2 Saturation < 60.0 % VBG Base Excess 2.2 mEq/L Barometric Pressure 730.0 mm/Hg Sodium (136-145) mmol/L Potassium (3.5-5.1) mmol/L Chloride (98-107) mmol/L Carbon Dioxide (21-32) mmol/L Anion Gap (3-11) BUN (7-18) mg/dl Creatinine (0.6-1.2) mg/dl Est Cr Clr Drug Dosing ml/min Est GFR ( Amer) ml/min Est GFR (Non-Af Amer) ml/min BUN/Creatinine Ratio (10-20) Glucose (70-99) mg/dl Lactate 1.0 (0.4-2.0) mmol/L Calcium (8.5-10.1) mg/dl Magnesium (1.8-2.4) mg/dl Total Bilirubin (0.2-1) mg/dl AST (15-37) U/L ALT (12-78) U/L Alkaline Phosphatase (45-117) U/L Troponin I (0-0.045) ng/ml Total Protein (6.4-8.2) gm/dl Albumin (3.4-5.0) gm/dl Globulin (2.5-4.0) gm/dl Albumin/Globulin Ratio (0.9-2) Procalcitonin (0-0.5) ng/ml Urine Color Yellow Urine Appearance Clear (Clear) Urine pH 6.0 (4.5-7.5) Ur Specific [place] 1.006 (1.000-1.030) Urine Protein Negative (Negative) Urine Glucose (UA) Negative (Negative) Urine Ketones Negative (Negative) Urine Blood Negative (Negative) Urine Nitrite Positive A (Negative) Urine Bilirubin Negative (Negative) Urine Urobilinogen Negative (Negative) Ur Leukocyte Esterase Negative (Negative) Urine WBC (Auto) 1-5 (0-5) /hpf Urine RBC (Auto) 0-4 (0-4) /hpf U Hyaline Cast (Auto) 0 (0-5) /lpf U Epithel Cells (Auto) >30 H (0-5) /lpf Urine Bacteria (Auto) 2+ H (Negative) COVID-19 Eval Order SARS-CoV-2 (PCR) (Negative) Administered Medications Discontinued Medications Albuterol (Albut/Ipratrop 3mg/0.5mg Neb 3 Ml Vial) 12 ml NEB ONE ONE Stop: 03/17/21 10:22 Last Admin: 03/17/21 10:32 Dose: 12 ml Documented by: [id number] Azithromycin (Azithromycin 250 Mg Tab) 500 mg PO NOW STA Stop: 03/17/21 13:22 Last Admin: 03/17/21 13:47 Dose: 500 mg Documented by: [id number] Dexamethasone Sodium Phosphate (DexamethasonePf 10 Mg/Ml Vial) 10 mg IV NOW ONE Stop: 03/17/21 10:12 Last Admin: 03/17/21 10:44 Dose: 10 mg Documented by: [id number] Sodium Chloride (Nss 1000ml) 500 mls @ 999 mls/hr IV .Q31M ONE Stop: 03/17/21 10:51 Last Infusion: 03/17/21 11:48 Dose: 0 mls/hr Documented by: [id number] Admin: 03/17/21 10:44 Dose: 999 mls/hr Documented by: [id number] Sodium Chloride (Nss 1000ml) 1,000 mls @ 999 mls/hr IV .Q1H1M ONE Stop: 03/17/21 12:36 Last Infusion: 03/17/21 13:09 Dose: 0 mls/hr Documented by: [id number] Admin: 03/17/21 12:08 Dose: 999 mls/hr Documented by: [id number] Piperacillin Sod/Tazobactam Sod (Zosyn) 4.5 gm in 120 mls @ 240 mls/hr IV NOW ONE Stop: 03/17/21 12:05 Last Infusion: 03/17/21 13:08 Dose: 0 mls/hr Documented by: [id number] Admin: 03/17/21 12:06 Dose: 240 mls/hr Documented by: [id number] Imaging Data Radiologist's Impression: Chest X-Ray 03/17/21 10:09 XR chest 1V portable CLINICAL HISTORY: SEPSIS COMPARISON STUDY: Chest radiograph August 11, 2020. FINDINGS: Lung volumes are normal. Mild left lower lung opacity is present. This is predominantly linear in configuration. There is no pneumothorax or pleural effusion. Cardiac size is normal. Mediastinal contours are normal. There is no evidence for pulmonary edema. IMPRESSION: Mild left lower lung opacity. The configuration favors atelectasis however an infectious process could appear similar. Radiographic follow-up is recommended. ACT 112: Negative or not required by law. Electronically signed by: Hector Ferrera M.D. 03/17/2021 11:30 AM Discharge Plan Visit Data Chief Complaint: Cough Stated Complaint: COUGH, CHEST PRESSURE, CONGESTION ED Provider: Royce Waggoner Discharge Problem: Acute exacerbation of chronic obstructive pulmonary disease, Hypoxia, Acute hypotension, COVID-19 virus infection, Acute bronchitis, Acute respiratory acidosis Patient Disposition: Being Evaluated by Hospitalist Forms Stand Alone Forms: [facility] Prescriptions Prescriptions: No Action albuterol sulfate 90 mcg/actuation HFA aerosol inhaler 2 puff inhalation Q4H PRN (Reason: Shortness Of Breath Or Wheezing) Qty: 8.5 RF: 5 ipratropium-albuterol 0.5 mg-3 mg(2.5 mg base)/3 mL solution for nebulization 3 ml inhalation Q8H PRN (Reason: shortness of breath or wheezing) Qty: 180 RF: 5 amitriptyline 50 mg Tablet 50 mg PO HS RF: 0 cholecalciferol (vitamin D3) [Vitamin D3] 1,000 unit Capsule 1,000 unit PO QAM RF: 0 oxycodone 5 mg tablet 5 mg PO Q12H RF: 0 bupropion HCl 150 mg tablet extended release 24 hr 150 mg PO QAM RF: 0 Women's One Daily 18 mg iron-400 mcg-500 mg Ca Tablet 1 tab PO QAM RF: 0 pregabalin [Lyrica] 25 mg Capsule 25 mg PO QAM RF: 0 glipizide 2.5 mg Tablet Extended Release 24hr 2.5 mg PO QDD RF: 0 pantoprazole [Protonix] 40 mg tablet,delayed release (DR/EC) 40 mg PO QAM RF: 0 mercaptopurine 50 mg tablet 50 mg PO QAM RF: 0 trazodone 50 mg tablet 50 mg PO HS RF: 0 metoprolol succinate 25 mg tablet extended release 24 hr 25 mg PO QAM RF: 0 atorvastatin 40 mg tablet 40 mg PO HS RF: 0 Remicade 100 mg recon soln 100 mg IV Q8WK RF: 0 Referrals Referrals: Chel Ozuna PA-C [Primary Care Provider] -
[2021-03-17 10:58] LABS: Basophils # (auto) 0.01 K/uL (0-0.2); Basophils % (auto) 0.3 %; Eosinophils # (auto) 0.02 K/uL (0-0.5); Eosinophils % (auto) 0.6 %; Hematocrit (blood only) 39.2 % (37-47); Hemoglobin 12.8 g/dL (12.0-16.0); Immature Granulocytes # (auto) 0.01 K/uL (0.00-0.02); Immature Granulocytes % (auto) 0.3 %; Lymphocytes # (auto) 0.84 K/uL (1.2-3.4); Lymphocytes % (auto) 26.2 %; Mean Corpuscular Hemoglobin 30.6 pg (25-34); Mean Corpuscular Hgb Conc 32.7 g/dL (32-36); Mean Corpuscular Volume 93.8 fL (80-100); Mean Platelet Volume 9.9 fL (7.4-10.4); Monocytes # (auto) 0.36 K/uL (0.11-0.59); Monocytes % (auto) 11.2 %; Neutrophils # (auto) 1.97 K/uL (1.4-6.5); Neutrophils % (auto) 61.4 %; Platelet Count 163 K/uL (130-400); RDW Coefficient of Variation 13.6 % (11.5-14.5); RDW Standard Deviation 46.6 fL (36.4-46.3); Red Blood Count 4.18 M/uL (4.2-5.4); White Blood Count 3.21 K/uL (4.8-10.8)
[2021-03-17 11:06] LABS: Base Excess VBG 2.2 mEq/L; HCO3 VBG 30 mmol/L; PCO2 VBG 61 mmHg (38-50); PO2 VBG 31 mmHg; pH VBG 7.31 (7.36-7.41)
[2021-03-17 11:10] LABS: Oxygen Saturation VBG < 60.0 %
[2021-03-17 11:15] LABS: Alanine Aminotransferase 19 U/L (12-78); Aspartate Aminotransferase 20 U/L (15-37); BUN Creatinine Ratio 9.5 (10-20); Blood Urea Nitrogen 11 mg/dl (7-18); Carbon Dioxide 31 mmol/L (21-32); Chloride 105 mmol/L (98-107); Creatinine Clr Calc Pharmacy 53.4 ml/min; Est GFR (African American) 58.3 ml/min; Est GFR (Non-African American) 50.3 ml/min; Glucose 86 mg/dl (70-99); Magnesium 1.9 mg/dl (1.8-2.4); Sodium 135 mmol/L (136-145)
[2021-03-17 11:20] LABS: Albumin Globulin Ratio 0.8 (0.9-2); Alkaline Phosphatase 96 U/L (45-117); Bilirubin,Total 0.3 mg/dl (0.2-1); Globulin 3.7 gm/dl (2.5-4.0); Total Protein 6.7 gm/dl (6.4-8.2); Troponin I < 0.015 ng/ml (0-0.045)
[2021-03-17 11:23] LABS: D Dimer 450 ug/L FEU (0-500); Partial Thromboplastin Ratio 1.3; Prothrombin Time 10.1 Seconds (9.0-12.0)
--- NOTE | 2021-03-17 11:31 | XRay Report ---
XR chest 1V portable CLINICAL HISTORY: SEPSIS COMPARISON STUDY: Chest radiograph August 11, 2020. FINDINGS: Lung volumes are normal. Mild left lower lung opacity is present. This is predominantly suad ear in configuration. There is no pneumothorax or pleural effusion. Cardiac size is normal. Mediastin al contours are normal. There is no evidence for pulmonary edema. IMPRESSION: Mild left lower lung opacity. The configuration favors atelectasis however an infectious process could appear similar. Radiographic follow-up is recommended. ACT 112: Negative or not required by law. Electronically signed by: Hector Ferrera M.D. 03/17/2021 11:30 AM
[2021-03-17] MEDS ORDERED: PIPERACILLIN/TAZOBACTAM 4.5 GM/120 ML BAG IV ONE (11:36)
[2021-03-17] MEDS ORDERED: SODIUM CHLORIDE 0.9% 1000ML 1,000 ML IV ONE (11:36)
[2021-03-17] MEDS ORDERED: PIPERACILL/TAZOBAC CONSULT ACTIVE PRN (11:36)
[2021-03-17 13:03] LABS: Appearance Urine Clear (Clear); Bacteria Urine Automated 2+ (Negative); Bilirubin Urine Negative (Negative); Blood Urine Negative (Negative); Cast Urine Automated 0 /lpf (0-5); Color Urine Yellow; Epithelial Cell Urine Auto >30 /lpf (0-5); Glucose Urine UA Negative (Negative); Ketones Urine Negative (Negative); Leukocyte Esterase Urine Negative (Negative); Nitrite Urine Positive (Negative); Protein Urine Negative (Negative); RBC Urine Automated 0-4 /hpf (0-4); Specific Gravity Urine 1.006 (1.000-1.030); Urobilinogen Urine Negative (Negative)
--- NOTE | 2021-03-17 13:20 | History & Physical Report ---
Date of Service March 17, 2021 Assessment & Plan (1) COPD exacerbation: Plan: Azithromycin 500mg now then 250mg PO daily for 4 days Duonebs Q4H Dexamethasone 6mg IV daily - consider increasing if deteriorating (2) Pneumonia due to COVID-19 virus: Plan: Vaccinated Dexamethasone 6mg IV daily Remdesivir given symptoms for 2 days and on low amount of oxygen she is an ideal candidate for this. Isolation precautions (3) Acute respiratory failure with hypoxia: Plan: Given rapid resolution of symptoms in ER, low CRP and good effect of duonebs I suspect a lot of her symptoms are related to COPD rather than COVID-19 pneumonia (4) UTI (urinary tract infection): Plan: Zosyn given in the ER, switch to ceftriaxone 1g IV daily for 3 days. (5) Crohns disease: Plan: On remicade as outpatient Continue mercaptopurine 50mg PO daily (6) GERD (gastroesophageal reflux disease): Plan: Continue pantoprazole 40mg PO daily (7) LALO (obstructive sleep apnea): Plan: CPAP HS (8) Hypertension: Plan: Continue metoprolol succinate 25mg PO daily (9) Hyperlipidemia: Plan: Continue atorvastatin (10) DM type 2 (diabetes mellitus, type 2): Plan: HbA1C with AM labs Stop glipizide Consult pharmacy for glycemic control in setting of steroid use Plan: VTE Prophylaxis - Lovenox 40mg SQ BID Diet - T2DM Disposition - admit to med/tele Admission and Anticipated Discharge Date Admission Date: March 17, 2021 History of Present Illness Chief Complaint: Shortness of breath Primary Care Provider: Chel Ozuna PA-C Krystin Jaffe is a 60 year old female with COPD who presents to the ER with shortness of breath. She is vaccinated for COVID-19. Sudden onset of symptoms getting progressively worse over the last 2 days. Her has been diagnosed with COVID-19 pneumonia. She denies any nasal congestion, sinus pain, loss of taste or smell, no diarrhea, chest pain or abdominal pain. Main symptom is her shortness of breath and couhging that has been so severe she feels she is going to lose consciousness. Cough is not productive of sputum. She is not on any maintenance inhalers for her COPD. In the ER, UA is suggestive of UTI although> 30 epithelial cells are present; she does report having acute back pain 2 days ago, no other urinary complaints. In the ER O2 sats 92% on 2LPM O2, she is not on any oxygen at home. She feels much improved after duonebs given in the ER. She was referred to medicine for admission and ongoing management of COVID-19 pneumonia and COPD exacerbation. Allergies Allergy/AdvReac Type Severity Reaction Status Date / Time No Known Allergies Allergy Verified 03/17/21 14:27 Home Medications Medication Instructions Recorded Confirmed Type amitriptyline 50 mg tablet 50 mg PO HS 08/25/18 03/17/21 History cholecalciferol (vitamin D3) 25 1,000 unit PO QAM 08/25/18 03/17/21 History mcg (1,000 unit) capsule (Vitamin D3) oxycodone 5 mg tablet 5 mg PO Q12H 07/06/20 03/17/21 History bupropion HCl 150 mg 24 hr tablet, 150 mg PO QAM 08/08/20 03/17/21 History extended release multivit-iron 18 mg-folic acid 400 1 tab PO QAM 08/08/20 03/17/21 History mcg-calcium 500 mg-minerals tablet (Women's One Daily) ipratropium 0.5 mg-albuterol 3 mg 3 ml INHALATION Q8H PRN #180 ml 09/12/20 03/17/21 Rx (2.5 mg base)/3 mL nebulization soln pregabalin 25 mg capsule (Lyrica) 25 mg PO QAM 01/16/21 03/17/21 History albuterol sulfate 90 mcg/actuation 2 puff INHALATION Q4H PRN #8.5 g 02/12/21 03/17/21 Rx aerosol inhaler glipizide 2.5 mg tablet, extended 2.5 mg PO QDD 02/15/21 03/17/21 History release 24 hr mercaptopurine 50 mg tablet 50 mg PO QAM 02/15/21 03/17/21 History pantoprazole 40 mg tablet,delayed 40 mg PO QAM 02/15/21 03/17/21 History release (Protonix) atorvastatin 40 mg tablet 40 mg PO HS 03/17/21 03/17/21 History infliximab 100 mg intravenous 100 mg IV Q8WK 03/17/21 03/17/21 History solution (Remicade) metoprolol succinate 25 mg 25 mg PO QAM 03/17/21 03/17/21 History tablet,extended release 24 hr trazodone 50 mg tablet 50 mg PO HS 03/17/21 03/17/21 History Past Med/Surg History Medical History (Updated 03/18/21 @ 08:52 by Sky Lu MD) Anxiety Asthma Chronic low back pain COPD (chronic obstructive pulmonary disease) Crohns disease Depression DM type 2 (diabetes mellitus, type 2) GERD (gastroesophageal reflux disease) diet controlled History of colitis History of migraine Hyperlipidemia Hypertension LALO (obstructive sleep apnea) CPAP Ovarian cyst Surgical History History of appendectomy History of carpal tunnel surgery BL History of colonoscopy History of D&C History of esophagogastroduodenoscopy (EGD) History of lumbar surgery x 5; hardware present History of tooth extraction History of tubal ligation Family History Brother Diabetes Father Diabetes Other No family history of adverse response to anesthesia Social History Smoking Status: Never smoker packs per day: 2.5; Number of Years Since Quit: 14; Second Hand Exposure: No; Hx Alcohol Use: No Hx Substance Use: No Preferred Language: Argentine Communication Ability: Effective Certified Pediatric Nurse Practitioner Required: No Beliefs That Will Affect Care: None Current Living Situation: Spouse Other Information That Helps Us Care for You: No Feels Safe at Home: Yes Safety Concerns: Feels Safe At This Time Assistive Devices: CPAP, Denture - Upper, Denture - Lower, Glasses and Oxygen - Continuous Review of Systems Review of Systems: All systems reviewed & are unremarkable except as noted in HPI & below Physical Exam Constitutional: WD/WN, vitals as above ENMT: external ear and nose normal, oropharynx normal Neck: trachea midline, no thyromegaly Respiratory: normal respiratory effort, + retractions, + uses accessory muscles, able to speak in complete sentences and + tachypneic; expiratory phase not prolonged and no audible wheezes Auscultation: + wheezes (mild expiratory); no diminished lung sounds, no crackles, no rales and no rhonchi Cardiovascular: Rate/Rhythm: regular rhythm and + tachycardic Heart Sounds: no murmur Vessels: radial pulses present Extremities: normal capillary refill; no calf tenderness Gastrointestinal (Abdomen): normal bowel sounds, soft, nontender, no hepatosplenomegaly Musculoskeletal: no cyanosis or clubbing, extremities motor strength 5/5 Skin: no rashes, warm and dry Neurologic: moves all extremities and awake; not confused Psychiatric: A+Ox3, euthymic affect Genitourinary: no CVA tenderness Lymphatic: no cervical or axillary lymphadenopathy Results & Data Results & Data ([facility]) Vital Signs (Past 12 Hours) Vital Signs Temp Pulse Pulse Resp BP Pulse Ox 03/17/21 12:04 104 H 27 H 92 03/17/21 11:45 106 H 25 H 124/67 100 03/17/21 11:30 105 H 23 116/65 100 03/17/21 11:15 106 H 24 127/71 100 03/17/21 11:00 92 H 21 113/76 100 03/17/21 10:55 86 L 03/17/21 10:45 87 17 100 03/17/21 10:32 85 18 96 03/17/21 10:01 36.9 C 89 16 76/53 L 89 L Diagnostic Findings XR chest 1V portable CLINICAL HISTORY: SEPSIS COMPARISON STUDY: Chest radiograph August 11, 2020. FINDINGS: Lung volumes are normal. Mild left lower lung opacity is present. This is predominantly linear in configuration. There is no pneumothorax or pleural effusion. Cardiac size is normal. Mediastinal contours are normal. There is no evidence for pulmonary edema. IMPRESSION: Mild left lower lung opacity. The configuration favors atelectasis however an infectious process could appear similar. Radiographic follow-up is recommended. Medications Administered ER Medications Given: Dexamethasone 10mg IV Duoneb 12ml NSS 1.5L bolus Zosyn 4.5g IV ECG Rate (beats per minute): 85 Rhythm: normal sinus Comparison ECG Date: from (August 08, 2020) Change: no significant change Code Status & VTE Plan Code Status Full - discussed with patient VTE Prophylaxis Plan VTE Prophylaxis will be ordered: Yes PG Care Time/CCT Total # of Minutes Spent Total Time Spent with Patient: Total time spent is greater than 50% in coordination of care (as documented) at patient's floor/unit and/or counseling patient: Coding Level of Care Code 19167 Initial Inpt Care Lvl 3 Diagnoses COPD exacerbation J44.1 Pneumonia due to COVID-19 virus U07.1; J12.82 UTI (urinary tract infection) N39.0 Acute respiratory failure with hypoxia J96.01 Crohns disease K50.90 GERD (gastroesophageal reflux disease) K21.9 LALO (obstructive sleep apnea) G47.33 Hypertension I10 Hyperlipidemia E78.5 DM type 2 (diabetes mellitus, type 2) E11.9
[2021-03-17] MEDS ORDERED: AZITHROMYCIN 250 MG TAB PO STA (13:21)
[2021-03-17] MEDS ORDERED: REMDESIVIR 200 MG in SODIUM CHLORIDE 0.9% 210 ML IV STA (13:57)
[2021-03-17] MEDS ORDERED: SODIUM CHLORIDE 0.9% 10ML FLUSH IV SCH (14:00)
[2021-03-17 15:27] LABS: C Reactive Protein 0.74 mg/dl (0-0.29)
[2021-03-17] MEDS ORDERED: ACETAMINOPHEN 325 MG TAB PO PRN (15:53)
[2021-03-17] MEDS ORDERED: ONDANSETRON INJ 2 MG/ML 2 ML VIAL IV PRN (15:53)
[2021-03-17] MEDS ORDERED: ALUMINUM/MAGNESIUM SUSP 30 ML UDC PO PRN (15:53)
[2021-03-17] MEDS ORDERED: PHARMACY GLYCEMIC MGMT CONSULT PRN (15:53)
[2021-03-17] MEDS ORDERED: CARBOHYDRATES FOR HYPOGLYCEMIA PO PRN (16:30)
[2021-03-17] MEDS ORDERED: GLUCOSE 10 TABS/TUBE PO PRN (16:30)
[2021-03-17] MEDS ORDERED: GLUCAGON FOR INJ 1 MG VIAL IM PRN (16:30)
[2021-03-17] MEDS ORDERED: DEXTROSE 50% 50 ML SYRINGE IV PRN (16:30)
[2021-03-17] MEDS ORDERED: GLUCOSE 40% GEL 15 GM TUBE PO PRN (16:30)
[2021-03-17] MEDS: ALBUT/IPRATROP 3MG/0.5MG NEB 3 ML VIAL NEB SCH ×3 (18:15→22:30)
[2021-03-17] MEDS: cefTRIAXone SODIUM 1,000 MG in DEXTROSE 5% 50 ML IV SCH (18:18)
[2021-03-17] MEDS: INSULIN ASPART 100 UNITS/ML 3 ML PEN SC SCH ×2 (18:27→21:45)
[2021-03-17] MEDS: oxyCODONE HCL IR 5 MG TAB (IMMEDIATE RELEASE) PO PRN (19:39)
[2021-03-17] MEDS: AMITRIPTYLINE HCL 50 MG TAB PO SCH (21:42)
[2021-03-17] MEDS: guaiFENesin 600 MG TABCR PO SCH (21:42)
[2021-03-17] MEDS: traZODone HCL 50 MG TAB PO SCH (21:42)
[2021-03-17] MEDS: ATORVASTATIN 40 MG TAB PO SCH (21:42)
[2021-03-18] MEDS: ALBUT/IPRATROP 3MG/0.5MG NEB 3 ML VIAL NEB SCH ×5 (02:12→19:59)
[2021-03-18] MEDS: INSULIN ASPART 100 UNITS/ML 3 ML PEN SC SCH ×6 (02:33→21:19)
[2021-03-18] MEDS: ENOXAPARIN INJ 40 MG/0.4 ML SYR SQ SCH ×3 (02:47→21:15)
[2021-03-18] MEDS: guaiFENesin 600 MG TABCR PO SCH ×2 (07:20→21:17)
[2021-03-18] MEDS: CHOLECALCIFEROL 1,000 UNITS 25 MCG TAB PO SCH (07:20)
[2021-03-18] MEDS: buPROPion XL 150 MG TABCR PO SCH (07:20)
[2021-03-18] MEDS: AZITHROMYCIN 250 MG TAB PO SCH (07:20)
[2021-03-18] MEDS: METOPROLOL SUCC 25MG EXT REL TAB PO SCH (07:21)
[2021-03-18] MEDS: MULTIVITAMIN TAB PO SCH (07:21)
[2021-03-18] MEDS: dexAMETHasone 6 MG in SYRINGE 0 ML IV SCH (07:21)
[2021-03-18] MEDS: PANTOprazole 40 MG TAB PO SCH (07:21)
[2021-03-18] MEDS: MERCAPTOPURINE 50 MG TAB PO SCH (07:21)
[2021-03-18 07:24] LABS: Hematocrit (blood only) 35.9 % (37-47); Hemoglobin 11.4 g/dL (12.0-16.0); Mean Corpuscular Hemoglobin 29.8 pg (25-34); Mean Corpuscular Hgb Conc 31.8 g/dL (32-36); Mean Corpuscular Volume 93.7 fL (80-100); Mean Platelet Volume 9.8 fL (7.4-10.4); Platelet Count 154 K/uL (130-400); RDW Coefficient of Variation 13.7 % (11.5-14.5); RDW Standard Deviation 46.9 fL (36.4-46.3); Red Blood Count 3.83 M/uL (4.2-5.4); White Blood Count 2.27 K/uL (4.8-10.8)
[2021-03-18 07:49] LABS: BUN Creatinine Ratio 17.3 (10-20); Creatinine Clr Calc Pharmacy 59.4 ml/min; Est GFR (African American) 67.8 ml/min; Est GFR (Non-African American) 58.5 ml/min; Potassium 4.6 mmol/L (3.5-5.1)
[2021-03-18 07:50] LABS: C Reactive Protein 1.13 mg/dl (0-0.29)
[2021-03-18 07:51] LABS: Estimated Average Glucose 131 mg/dl; Hemoglobin A1C 6.2 % (4.5-5.6)
[2021-03-18 08:11] LABS: Basophils # (auto) 0.01 K/uL (0-0.2); Basophils % (auto) 0.4 %; Lymphocytes # (auto) 0.68 K/uL (1.2-3.4); Monocytes # (auto) 0.33 K/uL (0.11-0.59); Monocytes % (auto) 14.5 %; Neutrophils # (auto) 1.25 K/uL (1.4-6.5); Neutrophils % (auto) 55.1 %; Ovalocytes 1+
--- NOTE | 2021-03-18 08:11 | Hospitalist Progress Note ---
Date of Service March 18, 2021 Assessment & Plan (1) COPD exacerbation: Plan: acute exacerbation of chronic respiratory failure with hypoxia Vaccinated for covid, unfortunately positive Covid testing in the ER minor left lower lobe opacity which could be infectious ceftiraxone / Azithromycin, there is some left lower lobe infiltrate seen, procalcitonin negative consider viral pneumonia secondary to covid infection will transition to po azithromycin to help with inflamation in lung associated with copd exacerbtion Duonebs remdesivir per protocol Dexamethasone 6mg IV daily concern for rebound at day 10-14, patient educated on this issue (2) Pneumonia due to COVID-19 virus: Plan: Dexamethasone 6mg IV daily (3) UTI (urinary tract infection): Plan: Zosyn given in the ER, switch to ceftriaxone 1g IV daily for 3 days.preliminary is Gram negative > 100,000 (4) Crohns disease: Plan: pt typically has Remicade infusions and is on 6 mercaptopurine this has been continued (5) Hypertension: Plan: metoprolol succinate 25 mg a day (6) Poor glycemic control: Plan: since pt is on dexamethasone will have nph insulin plus ssi and pharmacy oversight Admission and Anticipated Discharge Date Admission Date: March 17, 2021 Subjective pt seems much improved today only on 1 L oxygen and just a small non productive cough Review of Systems Review of Systems: Mild distress and fatigue no headache, no visual changes no speech or swallowing issues no chest pain, pressure or palpitations Mild to moderate shortness of breath, nonproductive cough no wheezes no abdominal pain, nausea or vomiting, diarrhea or constipation no dysuria, hematuria or frequency no focal joint pain or swelling no back pain, CVA tenderness or radicular pain no bruising, bleeding or rashes no focal signs of weakness or numbness or altered sensation no complaints of anxiety or depression.. Physical Exam Physical Exam: The patient appeared well nourished and normally developed. Vital signs as documented. Head exam is normocephalic atraumatic Neck is without JVD, thyromegaly, or carotid bruits. Lungs are diminished throughout reasonable air movement prolonged expiratory phase Cardiac exam, Rhythm is regular.. No murmurs, rubs or gallops. Abdominal exam reveals normal bowel sounds, soft non tender, no masses Extremities are nonedematous and both pedal pulses are present Neurologic exam is alert and oriented, no focal loss of strength or sensation Skin is without bruises or rashes Psychologically is without concerns for anxiety or depression Results & Data Results & Data ([facility]) Vital Signs (Past 12 Hours) Vital Signs Temp Pulse Pulse Resp BP Pulse Ox 03/18/21 08:01 92 H 18 90 03/18/21 07:08 98.2 F 105 H 18 114/74 95 03/18/21 02:49 98.1 F 96 H 16 97/58 L 90 03/18/21 02:12 88 20 95 03/17/21 23:12 97.7 F 99 H 17 98/62 L 93 03/17/21 22:41 81 22 95 03/17/21 22:29 80 20 94 PG Care Time/CCT Total # of Minutes Spent Total Time Spent with Patient: Total time spent is greater than 50% in coordination of care (as documented) at patient's floor/unit and/or counseling patient: Coding Level of Care Code 46849 Subseq Hosp Care Lvl 2 Diagnoses COPD exacerbation J44.1 Pneumonia due to COVID-19 virus U07.1; J12.82 UTI (urinary tract infection) N39.0 Crohns disease K50.90 Hypertension I10 Poor glycemic control R73.09
[2021-03-18] MEDS: PREGABALIN 25 MG CAP PO SCH (08:29)
[2021-03-18] MEDS: INSULIN HUMAN NPH SC SCH (08:30)
[2021-03-18] MEDS ORDERED: SODIUM CHLORIDE 0.9% 10ML FLUSH IV SCH (12:00)
[2021-03-18] MEDS: oxyCODONE HCL IR 5 MG TAB (IMMEDIATE RELEASE) PO PRN ×2 (12:10→17:17)
[2021-03-18] MEDS: REMDESIVIR 100 MG in SODIUM CHLORIDE 0.9% 230 ML IV SCH (12:11)
--- NOTE | 2021-03-18 12:58 | Pharmacy Report ---
Pharmacy Glycemic Short Note 2 - Date of Service March 18, 2021 - Glycemic Short BSG Results (Last 24 hours): 03/17/21 03/17/21 03/18/21 18:16 21:39 00:16 Glucose POC Glucose 194 H 147 H 130 H 03/18/21 03/18/21 03/18/21 04:05 06:55 07:13 Glucose 86 POC Glucose 93 79 03/18/21 11:48 Glucose POC Glucose 144 H OUTPATIENT ANTIDIABETIC REGIMEN: * Glipizide 2.5 mg daily * HbA1C= 6.2% ASSESSMENT: * Ms Jaffe is a 60 y/o F with a PMH of well controlled T2DM who presents with COVID. * Patient is on dexamethasone 6 mg IV daily. * Start with NPH 0.4 units/kg or 30 units daily. * Novolog weight-based stress of 3. Expect significant needs from carbohydrate ratio as patients on sulfonylureas typically require tight carbohydrate control. PLAN FOR INPATIENT GLYCEMIC CONTROL: * Hold outpatient oral diabetes medications * Basal insulin * NPH 30 units SQ daily with steroids * Bolus insulin * NovoLog per scale ACHS or Q6hrs while NPO * Goal Range: Low 110 mg/dL - High 140 mg/dL * Correction Factor: 20 mg/dL/unit * Nutritional / Prandial insulin per carb ratio of 1 unit per 7 grams CHO consumed PLAN FOR DISCHARGE: * Patient's HbA1C is at goal continue current regimen.
[2021-03-18] MEDS: SODIUM CHLORIDE 0.9% 10ML FLUSH IV SCH (13:34)
--- NOTE | 2021-03-18 16:52 | Electrocardiogram Report ---
Test Reason : Blood Pressure : / mmHG Vent. Rate : 085 BPM Atrial Rate : 085 BPM P-R Int : 144 ms QRS Dur : 078 ms QT Int : 360 ms P-R-T Axes : 068 077 071 degrees QTc Int : 428 ms Normal sinus rhythm Normal ECG When compared with ECG of 08-AUG-2020 21:56, No significant change was found Confirmed by Mango Mo ([id number]) on 03/18/2021 4:52:24 PM Referred By: REFERRED SELF Confirmed By:Mango Mo
[2021-03-18] MEDS: cefTRIAXone SODIUM 1,000 MG in DEXTROSE 5% 50 ML IV SCH (17:18)
[2021-03-18] MEDS: traZODone HCL 50 MG TAB PO SCH (21:16)
[2021-03-18] MEDS: AMITRIPTYLINE HCL 50 MG TAB PO SCH (21:16)
[2021-03-18] MEDS: ATORVASTATIN 40 MG TAB PO SCH (21:16)
[2021-03-19] MEDS: ALBUT/IPRATROP 3MG/0.5MG NEB 3 ML VIAL NEB SCH ×5 (03:01→15:15)
[2021-03-19] MEDS: PREGABALIN 25 MG CAP PO SCH (08:20)
[2021-03-19] MEDS: dexAMETHasone 6 MG in SYRINGE 0 ML IV SCH (08:21)
[2021-03-19] MEDS: ENOXAPARIN INJ 40 MG/0.4 ML SYR SQ SCH (08:21)
[2021-03-19] MEDS: guaiFENesin 600 MG TABCR PO SCH (08:21)
[2021-03-19] MEDS: oxyCODONE HCL IR 5 MG TAB (IMMEDIATE RELEASE) PO PRN (08:21)
[2021-03-19] MEDS: MULTIVITAMIN TAB PO SCH (08:22)
[2021-03-19] MEDS: MERCAPTOPURINE 50 MG TAB PO SCH (08:22)
[2021-03-19] MEDS: PANTOprazole 40 MG TAB PO SCH (08:22)
[2021-03-19] MEDS: buPROPion XL 150 MG TABCR PO SCH (08:22)
[2021-03-19] MEDS: CHOLECALCIFEROL 1,000 UNITS 25 MCG TAB PO SCH (08:22)
[2021-03-19] MEDS: INSULIN HUMAN NPH SC SCH (08:23)
[2021-03-19] MEDS: METOPROLOL SUCC 25MG EXT REL TAB PO SCH (08:23)
[2021-03-19] MEDS: AZITHROMYCIN 250 MG TAB PO SCH (08:23)
[2021-03-19] MEDS: INSULIN ASPART 100 UNITS/ML 3 ML PEN SC SCH ×2 (08:33→12:30)
--- NOTE | 2021-03-19 08:42 | XRay Report ---
XR chest 1V portable CLINICAL HISTORY: progression of covid COMPARISON STUDY: Chest radiograph March 17, 2021. FINDINGS: Lung volumes are normal. Mild left lower lung opacity has improved. There is no pneumothora x or pleural effusion. Cardiac size is normal. Mediastinal contours are normal. There is no evidence for pulmonary edema. IMPRESSION: Interval improvement in mild left lower lung opacity. ACT 112: Negative or not required by law. Electronically signed by: Hector Ferrera M.D. 03/19/2021 8:41 AM
[2021-03-19] MEDS: REMDESIVIR 100 MG in SODIUM CHLORIDE 0.9% 230 ML IV SCH (12:31)
[2021-03-19] MEDS: SODIUM CHLORIDE 0.9% 10ML FLUSH IV SCH (14:25)
--- NOTE | 2021-03-19 16:43 | Discharge Summary ---
Date of Service March 19, 2021 Admission HPI Per Admitting Provider Krystin Jaffe is a 60 year old female with COPD who presents to the ER with shortness of breath. She is vaccinated for COVID-19. Sudden onset of symptoms getting progressively worse over the last 2 days. Her has been diagnosed with COVID-19 pneumonia. She denies any nasal congestion, sinus pain, loss of taste or smell, no diarrhea, chest pain or abdominal pain. Main symptom is her shortness of breath and couhging that has been so severe she feels she is going to lose consciousness. Cough is not productive of sputum. She is not on any maintenance inhalers for her COPD. In the ER, UA is suggestive of UTI although> 30 epithelial cells are present; she does report having acute back pain 2 days ago, no other urinary complaints. In the ER O2 sats 92% on 2LPM O2, she is not on any oxygen at home. She feels much improved after duonebs given in the ER. She was referred to medicine for admission and ongoing management of COVID-19 pneumonia and COPD exacerbation. Principal Diagnosis Acute exacerbation of chronic obstructive pulmonary disease Hypoxia COVID-19 positive test (U07.1, COVID-19) with Acute Pneumonia (J12.89, Other viral pneumonia) (If respiratory failure or sepsis present, add as separate assessment) E. coli urinary tract infection present on admission with resistance Discharge Exam The patient appeared well Vital signs as documented. Lungs are decreased air movement throughout be considered normal no focal air loss wheezes or rails Cardiac exam, Rhythm is regular.. No murmurs, rubs or gallops. Abdominal exam reveals normal bowel sounds, soft non tender, no masses Extremities are nonedematous and both pedal pulses are normal. Neurologic exam is alert and oriented, no focal loss of strength or sensation Skin is without bruises or rashes Psychologically is without concerns for anxiety or depression. Discharge Data Allergies Allergy/AdvReac Type Severity Reaction Status Date / Time No Known Allergies Allergy Verified 03/17/21 14:27 Consultations 03/17/21 11:49 ED Decision to Admit Stat Hospital Course (1) COPD exacerbation: acute exacerbation of chronic respiratory failure with hypoxia Vaccinated for covid, unfortunately positive Covid testing in the ER minor left lower lobe opacity which could be infectious ceftiraxone / Azithromycin, there is some left lower lobe infiltrate seen, procalcitonin negative consider viral pneumonia secondary to covid infection will transition to po cefdinir Duonebs will be continued at home 4 times daily remdesivir discontinued due to improvement Dexamethasone 6mg daily as an outpatient concern for rebound at day 10-14, patient educated on this issue (2) Pneumonia due to COVID-19 virus: Dexamethasone 6mg p.o. daily (3) UTI (urinary tract infection): Zosyn given in the ER, switch to ceftriaxone 1g IV daily for 3 days.preliminary is Gram negative > 100,000 we will discharged on cefdinir (4) Crohns disease: pt typically has Remicade infusions and is on 6 mercaptopurine this has been continued fusion centers patient will likely be on home isolation until March 28, 2021 (5) Hypertension: metoprolol succinate 25 mg a day (6) Poor glycemic control: since pt is on dexamethasone hydrate conservative diet and to increase her oral sulfonylurea if her glucoses are persistently elevated Total Time Total Time Spent Total Time Spent (In Minutes): It required greater than 30 minutes to prepare this patient for discharge Discharge Plan Discharge Items Patient Disposition: Home - Self-Care Reason For Visit: HYPOXIA, COVID-19 PNEUMONIA, COPD EXACERBATION Discharge Diagnosis: copd exacerbation covid pneumonia Urinary tract present on admission Activity: Per Instructions section Activity Comment: gradually increase activity Non-emergency contact: Primary Care Provider Call non-emergency contact if: your symptoms worsen and you have a fever Follow-up/Referrals: Chel Ozuna PA-C [Primary Care Provider] - Diet: Carb Consistent or DM2 Addtl Attending Provider Instructions: you will be on steroids for an additional 8 days these may affect your blood glucose by increasing your numbers, please try to help this by being more mindfu l of your carbohydrate intake, if your blood glucoses are generally > 200 for a day, please take an additional glipizide in the evening. please call your Remicade infusion center to discuss postponing your appointment until after 03/28/21 always return if you feel more short of breath please slate picker you new inhaler, if it is not covered by insurance please have pharmacist call me at the hospital to change it Home Isolation COVID-19 Instructions The following information about Home Isolation is from the CDC Website: https://www.cdc.gov/coronavirus/2019-ncov/hcp/okxjrcnh-mgvrdev-tmyuqe.html Stay home except to get medical care People who are mildly ill with COVID-19 are able to isolate at home during their illness. You should restrict activities outside your home, except for getting medical care. Do not go to work, school, or public areas. Avoid using public transportation, ride-sharing, or taxis. Separate yourself from other people and animals in your home People: As much as possible, you should stay in a specific room and away from other people in your home. Also, you should use a separate bathroom, if available. Animals: You should restrict contact with pets and other animals while you are sick with COVID-19, just like you would around other people. Although there have not been reports of pets or other animals becoming sick with COVID-19, it is still recommended that people sick with COVID-19 limit contact with animals until more information is known about the virus. When possible, have another member of your household care for your animals while you are sick. If you are sick with COVID-19, avoid contact with your pet, including petting, snuggling, being kissed or licked, and sharing food. If you must care for your pet or be around animals while you are sick, wash your hands before and after you interact with pets and wear a face mask. Call ahead before visiting your doctor If you have a medical appointment, call the healthcare provider and tell them that you have or may have COVID-19. This will help the healthcare providers office take steps to keep other people from getting infected or exposed. Wear a face mask You should wear a face mask when you are around other people (e.g., sharing a room or vehicle) or pets and before you enter a healthcare providers office. If you are not able to wear a face mask (for example, because it causes trouble breathing), then people who live with you should not stay in the same room with you, or they should wear a face mask if they enter your room. Cover your coughs and sneezes Cover your mouth and nose with a tissue when you cough or sneeze. Throw used tissues in a lined trash can. Immediately wash your hands with soap and water for at least 20 seconds or, if soap and water are not available, clean your hands with an alcohol-based hand outboard motor assembler that contains at least 60% alcohol. Clean your hands often Wash your hands often with soap and water for at least 20 seconds, especially after blowing your nose, coughing, or sneezing; going to the bathroom; and before eating or preparing food. If soap and water are not readily available, use an alcohol-based hand outboard motor assembler with at least 60% alcohol, covering all surfaces of your hands and rubbing them together until they feel dry. Soap and water are the best option if hands are visibly dirty. Avoid touching your eyes, nose, and mouth with unwashed hands. Avoid sharing personal household items You should not share dishes, drinking glasses, cups, eating utensils, towels, or bedding with other people or pets in your home. After using these items, they should be washed thoroughly with soap and water. Clean all high-touch surfaces everyday High touch surfaces include counters, tabletops, doorknobs, bathroom fixtures, toilets, phones, keyboards, tablets, and bedside tables. Also, clean any surfaces that may have blood, stool, or body fluids on them. Use a household cleaning spray or wipe, according to the label instructions. Labels contain instructions for safe and effective use of the cleaning product including precautions you should take when applying the product, such as wearing gloves and making sure you have good ventilation during use of the product. Monitor your symptoms Seek prompt medical attention if your illness is worsening (e.g., difficulty breathing).Beforeseeking care, call your healthcare provider and tell them that you have, or are being evaluated for, COVID-19. Put on a face mask before you enter the facility. These steps will help the healthcare providers office to keep other people in the office or waiting room from getting infected or exposed. Ask your healthcare provider to call the local or state health department. Persons who are placed under active monitoring or facilitated self- monitoring should follow instructions provided by their local health department or occupational health professionals, as appropriate. When working with your local health department check their available hours. If you have a medical emergency and need to call 911, notify the dispatch personnel that you have, or are being evaluated for COVID-19. If possible, put on a face mask before emergency medical services arrive. Discontinuing home isolation Patients with confirmed COVID-19 should remain under home isolation precautions until the risk of secondary transmission to others is thought to be low. The decision to discontinue home isolation precautions should be made on a case-by- case basis, in consultation with healthcare providers and state and local health departments. Pending Studies at Discharge: No Stand-Alone Forms: My [facility] [address], Smoking Cessation Medications and DC Order Prescriptions: New dexamethasone [Decadron] 6 mg tablet 6 mg PO DAILY Qty: 8 RF: 0 Breo Ellipta 100-25 mcg/dose blister with device 1 inh inhalation DAILY Qty: 28 RF: 3 cefdinir 300 mg capsule 300 mg PO BID 5 Days Qty: 10 RF: 0 Continued albuterol sulfate 90 mcg/actuation HFA aerosol inhaler 2 puff inhalation Q4H PRN (Reason: Shortness Of Breath Or Wheezing) Qty: 8.5 RF: 5 ipratropium-albuterol 0.5 mg-3 mg(2.5 mg base)/3 mL solution for nebulization 3 ml inhalation Q8H PRN (Reason: shortness of breath or wheezing) Qty: 180 RF: 5 amitriptyline 50 mg Tablet 50 mg PO HS RF: 0 cholecalciferol (vitamin D3) [Vitamin D3] 1,000 unit Capsule 1,000 unit PO QAM RF: 0 oxycodone 5 mg tablet 5 mg PO Q12H RF: 0 bupropion HCl 150 mg tablet extended release 24 hr 150 mg PO QAM RF: 0 Women's One Daily 18 mg iron-400 mcg-500 mg Ca Tablet 1 tab PO QAM RF: 0 pregabalin [Lyrica] 25 mg Capsule 25 mg PO QAM RF: 0 glipizide 2.5 mg Tablet Extended Release 24hr 2.5 mg PO QDD RF: 0 pantoprazole [Protonix] 40 mg tablet,delayed release (DR/EC) 40 mg PO QAM RF: 0 mercaptopurine 50 mg tablet 50 mg PO QAM RF: 0 trazodone 50 mg tablet 50 mg PO HS RF: 0 metoprolol succinate 25 mg tablet extended release 24 hr 25 mg PO QAM RF: 0 atorvastatin 40 mg tablet 40 mg PO HS RF: 0 Remicade 100 mg recon soln 100 mg IV Q8WK RF: 0 Changed ipratropium-albuterol 0.5 mg-3 mg(2.5 mg base)/3 mL solution for nebulization 3 ml inhalation QID Qty: 180 RF: 5 Discharge Orders: Discharge Order (Routine); Ordered 03/19/21 Ordered By: Jeovany Valentin/Other Patient Handouts: A1C, High Blood Sugar (Hyperglycemia), Hypoglycemia (Low Blood Sugar), Managing Type 2 Diabetes Admission Data Admit Date/Time: 03/17/21 13:25 Attending Provider: Jeovany De La Cruz Admit Provider: Sky Lu Primary Care Provider: Chel Ozuna Other Providers: Sky Lu Coding Level of Care Code D/C DAY MANAGEMENT >30 MINS Diagnoses COPD exacerbation J44.1 Pneumonia due to COVID-19 virus U07.1; J12.82 UTI (urinary tract infection) N39.0 Crohns disease K50.90 Hypertension I10 Poor glycemic control R73.09
[2021-03-20] MEDS ORDERED: INSULIN HUMAN NPH SC SCH (09:00)
== END 2021-03-19 18:35 | disposition home or self-care (01) | DRG 177 ==
LOC: ED 09:52 → 2S 13:25 → SUATTDRO 13:25 → 2S 15:13

== ENCOUNTER 2021-07-04 10:36 | Inpatient (IN) ==
--- NOTE | 2021-07-03 09:17 | Anesthesiology Consultation ---
Date of Service July 03, 2021 Assessment & Plan (1) Encounter for pre-operative examination: - check BSG and CXR am DOS. 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 - COVID screening: Per pan helper on 07/03/2021: Travel screen negative, no known COVID-19 positive contacts or current COVID-19 related symptoms in past 2 weeks. Patient vaccinated. Surgeon arranging preop COVID testing, completed 07/02/2021 negative. Awaiting results. Chart Review Chart Review: Acceptable Risk for Surgery and Patient NOT seen in Pre Admission Testing History Surgery Operation Date: 07/04/21 12:45 Proposed Procedures p Laparoscopic Assisted Colon Resection - Gildardo Woods MD, FACS Allergies Allergy/AdvReac Type Severity Reaction Status Date / Time No Known Allergies Allergy Verified 07/03/21 09:15 Medications Home Medications Medication Instructions Recorded Confirmed Last Taken amitriptyline 50 mg tablet 50 mg PO HS 08/25/18 07/03/21 03/16/21 cholecalciferol (vitamin D3) 25 1,000 unit PO QAM 08/25/18 07/03/21 03/17/21 mcg (1,000 unit) capsule (Vitamin D3) oxycodone 5 mg tablet 5 mg PO Q12H 07/06/20 07/03/21 03/17/21 bupropion HCl 150 mg 24 hr tablet, 150 mg PO QAM 08/08/20 07/03/21 03/17/21 extended release multivit-iron 18 mg-folic acid 400 1 tab PO QAM 08/08/20 07/03/21 03/17/21 mcg-calcium 500 mg-minerals tablet (Women's One Daily) pregabalin 25 mg capsule (Lyrica) 25 mg PO QAM 01/16/21 07/03/21 03/17/21 albuterol sulfate 90 mcg/actuation 2 puff INHALATION Q4H PRN #8.5 g 02/12/21 07/03/21 03/17/21 aerosol inhaler glipizide 2.5 mg tablet, extended 2.5 mg PO QDD 02/15/21 07/03/21 03/17/21 release 24 hr mercaptopurine 50 mg tablet 50 mg PO QAM 02/15/21 07/03/21 03/17/21 atorvastatin 40 mg tablet 40 mg PO HS 03/17/21 07/03/21 03/16/21 infliximab 100 mg intravenous 100 mg IV Q8WK 03/17/21 07/03/21 03/15/21 solution (Remicade) metoprolol succinate 25 mg 25 mg PO QAM 03/17/21 07/03/21 03/17/21 tablet,extended release 24 hr trazodone 50 mg tablet 50 mg PO HS 03/17/21 07/03/21 03/16/21 ipratropium 0.5 mg-albuterol 3 mg 3 ml INHALATION QID #180 ml 03/19/21 07/03/21 03/17/21 (2.5 mg base)/3 mL nebulization soln pantoprazole 40 mg tablet,delayed 40 mg PO QAM #90 tab 06/24/21 07/03/21 Unknown release (Protonix) dexamethasone 6 mg tablet 6 mg PO QAM 07/03/21 07/03/21 Unknown (Decadron) fluticasone furoate 100 1 inh INHALATION QAM 07/03/21 07/03/21 Unknown mcg-vilanterol 25 mcg/dose inhalation powder (Breo Ellipta) Past Medical History Medical History (Updated 07/03/21 @ 09:35 by Viola Jordan RN) Anxiety Asthma Chronic low back pain COPD (chronic obstructive pulmonary disease) inhaler daily/prn, nebulizer daily Crohns disease Depression DM type 2 (diabetes mellitus, type 2) NIDDM GERD (gastroesophageal reflux disease) History of colitis History of COVID-19 diagnosed 03/17/21 @ [facility]--had difficulty breathing d/t COPD and had to hospitalized with oxygen for 1 week, pt states no lingering symptoms History of migraine Hyperlipidemia Hypertension LALO (obstructive sleep apnea) CPAP Ovarian cyst Past Family History Family History Brother Diabetes Father Diabetes Other No family history of adverse response to anesthesia Past Surgical History Surgical History (Updated 07/03/21 @ 09:35 by Viola Jordan RN) History of appendectomy History of carpal tunnel surgery BL History of colonoscopy last 02/21/21 @ [facility] History of D&C History of esophagogastroduodenoscopy (EGD) History of lumbar surgery x 5; hardware present History of tooth extraction History of tubal ligation Social History Smoking Status: Never smoker Hx Alcohol Use: No Hx Substance Use: No substance use type: does not use Lab Results Anesthesia Preop Results Results Anesthesia Widget: WBC 5.62 K/uL (4.8-10.8) 06/03/21 Hgb 11.7 g/dL (12.0-16.0) L 06/03/21 Hct 36.3 % (37-47) L 06/03/21 Plt 254 K/uL (130-400) 06/03/21 Na 140 mmol/L (136-145) 06/03/21 K 3.7 mmol/L (3.5-5.1) 06/03/21 Cl 107 mmol/L (98-107) 06/03/21 CO2 27 mmol/L (21-32) 06/03/21 BUN 12 mg/dl (7-18) 06/03/21 Creat 1.10 mg/dl (0.6-1.2) 06/03/21 Glucose Level 65 mg/dl (70-99) L 06/03/21 Testing Electrocardiogram Date: 03/17/21 NSR, rate 85 bpm. Echocardiogram Date: 08/30/20 EF 50-54% Normal LV wall thickness No significant valvular pathology
[~2021-07-04 10:36] MED LIST changes: -AMIT25TA9 PO; -GABA-113 PO; +LR 15ML/HR IV SCH; -METO-217 PO; -MULT-589 PO; -OXYC-164 PO; -PANT40TA PO; -RANI300T PO; -SIMV20TA5 PO; -TIZA4CAP PO; -VNTHFA/IN INH
--- NOTE | 2021-07-04 11:08 | XRay Report ---
TWO VIEW CHEST CLINICAL HISTORY: Preoperative examination. COPD. FINDINGS: PA and lateral chest radiographs are compared to study dated 03/19/2021. The heart is top n ormal for projection noting atherosclerotic calcification of the thoracic aorta. Emphysema and chroni c interstitial thickening is similar to previous. Scarring/atelectasis is noted at the lung bases. Th ere is no airspace consolidation or pleural effusion. There is no pneumothorax. The skeletal structur es are osteopenic. There are healed right-sided rib fractures. IMPRESSION: Emphysematous change with no active disease in the chest. ACT 112: Negative or not required by law. Electronically signed by: Sean Kirkpatrick M.D. 07/04/2021 11:07 AM
[2021-07-04] MEDS ORDERED: LIDOCAINE 2% 2 ML VIAL/AMP(20MG/ML) INFIL ONE (11:35)
[2021-07-04] MEDS ORDERED: NEOSTIGMINE METHYLSULFATE 1 MG/ML 10ML VIAL ONE (11:35)
[2021-07-04] MEDS ORDERED: fentaNYL citrate 100 MCG/2 ML VIAL ONE (11:35)
[2021-07-04] MEDS ORDERED: GLYCOPYRROLATE 0.2 MG/ML VIAL ONE (11:35)
[2021-07-04] MEDS ORDERED: PROPOFOL IV EMULSION 10 MG/ML 20 ML VIAL IV ONE (11:35)
[2021-07-04] MEDS ORDERED: ONDANSETRON INJ 2 MG/ML 2 ML VIAL ONE (11:35)
[2021-07-04] MEDS ORDERED: MIDAZOLAM HCL 1 MG/ML 2ML VIAL ONE (11:35)
[2021-07-04] MEDS ORDERED: DEXAMETHASONE SOD INJ 4 MG/ML VIAL ONE (11:35)
[2021-07-04] MEDS ORDERED: LARYING-O-JET KIT (LTA) ONE (11:38)
[2021-07-04] MEDS ORDERED: ROCURONIUM BROMIDE 10 MG/ML 5 ML VIAL IV ONE (11:38)
[2021-07-04] MEDS ORDERED: ePHEDrine sulfate 50 MG/ML AMP IV PRN (12:32)
[2021-07-04] MEDS ORDERED: HYDROmorphone INJ 2 MG/ML SYR/VIAL IV PRN (12:32)
[2021-07-04] MEDS ORDERED: PROMETHAZINE HCL 12.5 MG in SODIUM CHLORIDE 0.9% 50 ML IV PRN (12:32)
[2021-07-04] MEDS ORDERED: ATROPINE SULFATE 0.1 MG/ML 10ML SYR IV PRN (12:32)
[2021-07-04] MEDS ORDERED: ONDANSETRON INJ 2 MG/ML 2 ML VIAL IV PRN ×2 (12:32→19:56)
--- NOTE | 2021-07-04 14:58 | History & Physical Bridge Note ---
Date of Service July 04, 2021 History & Physical Bridge Note I have examined the patient, reviewed the History & Physical and in the interval since the performance of the History & Physical I have noted the following changes of clinical significance: no changes noted so at bedside all question answered
[2021-07-04] MEDS ORDERED: BUPIVACAINE 0.5 % 5 MG/1 ML MPF 30ML VIAL ONE (15:58)
[2021-07-04] MEDS ORDERED: HYDROmorphone INJ 1 MG/ML SYRINGE ONE (16:52)
--- NOTE | 2021-07-04 17:17 | Post Operative Brief Note ---
PG Immediate Post Op with CF Date of Surgery July 04, 2021 Pre & Post Diagnosis Operation Date: 07/04/21 12:45 Pre-Op Diagnosis: Colonic Stricture Post-Op Diagnosis: Colonic Stricture I identified the patient and participated in the time-out.: Yes Procedure Operation Date: 07/04/21 12:45 Actual Procedures p Laparoscopic Assisted Right Colon Resection(Not Applicable) - Gildardo Woods MD, FACS Surgeon Gildardo Woods MD, FACS Furniture Restorer robert clark Estimated Blood Loss 15 Findings Consistent with Post-Op Diagnosis Specimens Specimen Description: 1. Urine Culture A. Right Colon
[2021-07-04] MEDS ORDERED: SUGAMMADEX SODIUM 200 MG/2 ML VIAL IV ONE (17:22)
--- NOTE | 2021-07-04 17:42 | Operative Report ---
Post Operative Report Pre & Post Diagnosis Operation Date: 07/04/21 12:45 Pre-Op Diagnosis: Colonic Stricture Post-Op Diagnosis: Colonic Stricture I identified the patient and participated in the time-out.: Yes Procedure Operation Date: 07/04/21 12:45 Actual Procedures p Laparoscopic Assisted Right Colon Resection(Not Applicable) - Gildardo Woods MD, FACS Patient was brought into the operating theater general endotracheal anesthesia 1 position [place] catheter inserted the abdomen prepped byline solution properly draped next on board a timeout was had the patient was identified we made a small incision supraumbilically sufficient to grab the fascia the Veress needle was introduced followed by 5 mm trocar point of entry spectrin no injury i dentified at this point to visualize the abdomen the upper abdomen I was not able to see any tattoo as we worked our way down towards the right colon as anticipated and we had warned that there was a stricture in the ascending colon we did find some tattooing spread onto the anterior abdominal wall she did have some adhesions down into the abdominal wall from the previously ruptured appendix we visualized the terminal ileum there was no significant fat stranding on the antimesenteric border. At this point we identified that the colon was not distended the patient did have this tattoo in the right colon therefore we mobilized the white line of Toldt significantly then we were able to make a skin incision above below the umbilicus sufficient to deliver the colon into the abdominal wall as we deliver the terminal ileum also. GRANT stapler was used to divide the terminal ileum at approximately 10-15 cm from the ileocecal valve the colon we palpated a large tattoo was appreciated I could feel a stricture it was fairly small no proximal colonic obstruction or dilatation distally the patient has some soft stool that we can appreciated in the transverse colon I can feel the stricture can accommodate my index finger almost felt like a small apple core lesion we took a line of resection of the transverse colon just distal to the hepatic flexure we closed the mesentery once we had divided between hemostats to resect the specimen to take it off the operative field avoiding duodenum the mesentery to the terminal ileum and colon was then reapproximated to avoid any opening for internal hernia with 3-0 silk suture the 2 staple line on the line of resection of the small bowel and the colon was oversewn with 3-0 silk side to side anastomosis with 3-0 chromic 3-0 silk outer layer was per formed but accommodate finger to the area was then checked for stasis appears satisfactory return to normal anatomical position irrigated the abdomen NG placed at 60 cm we then closed the abdomen using #1 PDS 1 code abdomen was cephalad tied in the middle quarter inch Mariana subcu attaching skin edge with 2-0 silk and nate for skin edges dressing was applied estimated blood loss 25 cc robert griffith was present throughout the case and helped the retraction exposure wound closure Talk to Ayo at [phone] Surgeon Gildardo Woods MD, FACS Manufacturing Tech robert clark Estimated Blood Loss 15 Findings Consistent with Post-Op Diagnosis Small benign appearing ascending colon stricture Specimens Terminal ileum and right colon Drains Quarter-inch Mariana subcu Indications Clonic stricture possibility of Crohn's versus malignancy Description of Procedure merda I attest to the content of the Intraoperative Record and any orders documented therein. Any exceptions are noted below.
[2021-07-04] MEDS: fentaNYL citrate 100 MCG/2 ML VIAL IV PRN ×4 (18:10→18:44)
--- NOTE | 2021-07-04 18:29 | Anesthesiology Progress Note ---
Date of Service July 04, 2021 Anesthesia Post Procedure Vital Signs Vital Signs: Temp Pulse Pulse Resp BP Pulse Ox 07/04/21 18:25 98.1 F 94 H 13 120/70 94 07/04/21 18:15 98.1 F 102 H 17 127/80 94 07/04/21 18:05 98.1 F 96 H 14 126/70 97 07/04/21 17:55 100 H 17 114/71 97 07/04/21 17:45 98 H 21 132/74 97 07/04/21 17:38 97.0 F L 104 H 12 122/77 94 07/04/21 14:55 100 H 17 114/71 97 07/04/21 11:16 98.6 F 104 H 18 139/85 99 Pain Intensity Abdomen: Pain Intensity: 7 Transfer of Care Handoff Completed per policy Notes Mental Status: alert / awake / arousable and participated in evaluation Patient Amnestic to Procedure: Yes Nausea / Vomiting: adequately controlled Pain: adequately controlled Airway Patency, RR, SpO2: stable & adequate BP & HR: stable & adequate Hydration State: stable & adequate Anesthetic Complications: no major complications apparent and Pt Satisfied with anesthetic care
[2021-07-04] MEDS: LACTATED RINGER'S 1,000 ML IV SCH (19:45)
[2021-07-04] MEDS ORDERED: NALOXONE HCL 0.4 MG/1 ML VIAL/CARP IV PRN (19:56)
[2021-07-04] MEDS ORDERED: GLUCOSE 10 TABS/TUBE PO PRN (19:56)
[2021-07-04] MEDS ORDERED: GLUCOSE 40% GEL 15 GM TUBE PO PRN (19:56)
[2021-07-04] MEDS ORDERED: DEXTROSE 50% 50 ML SYRINGE IV PRN (19:56)
[2021-07-04] MEDS ORDERED: CARBOHYDRATES FOR HYPOGLYCEMIA PO PRN (19:56)
[2021-07-04] MEDS ORDERED: GLUCAGON FOR INJ 1 MG VIAL SQ PRN (19:56)
[2021-07-04] MEDS ORDERED: ALBUTEROL HFA 8 GM INHALER INH PRN (19:56)
[2021-07-04] MEDS: MoRPHine SULFATE PCA 30 MG/30 ML IV PRN (20:22)
[2021-07-04] MEDS: ALBUT/IPRATROP 3MG/0.5MG NEB 3 ML VIAL INH SCH (20:42)
[2021-07-04] MEDS ORDERED: INSULIN ASPART PER UNIT SC SCH (21:00)
[2021-07-04] MEDS: SODIUM CHLORIDE 0.9% 1000ML 1,000 ML IV SCH (21:53)
[2021-07-04] MEDS: AMITRIPTYLINE HCL 50 MG TAB PO SCH (21:53)
[2021-07-04] MEDS: traZODone HCL 50 MG TAB PO SCH (21:53)
[2021-07-04] MEDS ORDERED: Nursing to Pharmacy Communication SCH (22:00)
[2021-07-04] MEDS: cefOXitin 2,000 MG in DEXTROSE 5% 50 ML IV SCH (22:39)
[2021-07-05] MEDS: INSULIN ASPART PER UNIT SC SCH ×5 (00:18→23:54)
[2021-07-05] MEDS: LACTATED RINGER'S 1,000 ML IV SCH ×3 (02:15→19:58)
[2021-07-05] MEDS: cefOXitin 2,000 MG in DEXTROSE 5% 50 ML IV SCH ×3 (03:26→16:06)
[2021-07-05 06:31] LABS: Basophils # (auto) 0.01 K/uL (0-0.2); Basophils % (auto) 0.1 %; Hematocrit (blood only) 36.1 % (37-47); Hemoglobin 11.5 g/dL (12.0-16.0); Immature Granulocytes # (auto) 0.02 K/uL (0.00-0.02); Immature Granulocytes % (auto) 0.2 %; Lymphocytes # (auto) 0.67 K/uL (1.2-3.4); Lymphocytes % (auto) 6.3 %; Mean Corpuscular Hemoglobin 30.5 pg (25-34); Mean Corpuscular Hgb Conc 31.9 g/dL (32-36); Mean Corpuscular Volume 95.8 fL (80-100); Mean Platelet Volume 9.8 fL (7.4-10.4); Monocytes # (auto) 0.73 K/uL (0.11-0.59); Monocytes % (auto) 6.8 %; Neutrophils # (auto) 9.27 K/uL (1.4-6.5); Neutrophils % (auto) 86.6 %; Platelet Count 251 K/uL (130-400); RDW Coefficient of Variation 13.7 % (11.5-14.5); RDW Standard Deviation 47.6 fL (36.4-46.3); Red Blood Count 3.77 M/uL (4.2-5.4)
--- NOTE | 2021-07-05 06:50 | Surgery Progress Note ---
Date of Service July 05, 2021 Assessment & Plan (1) Colon stricture: Plan: Postop day #1 right colon resection Continue analgesics Continue antiemetics Continue n.p.o. status until GI activity noted Encourage use of incentive spirometry Mobilize as able Continue hydration with IV fluids until oral intake able be advanced Will d/c [place] Subcutaneous heparin is in place for DVT prevention Admission and Anticipated Discharge Date Admission Date: July 04, 2021 Supervising Physician Co-Signing Physician Notes changes made in Nic Meredith's note I had discussed with him operative findings discussed with patient Dr Culver covering week-end Subjective Patient is resting comfortably in bed. She notes her pain is well controlled. She denies any shortness of breath. She has not passed any flatus or move her bowel since surgery. She denies any shortness of breath. Physical Exam Gastrointestinal (Abdomen): Abdomen is soft and nondistended. Bowel sounds are hypoactive. Patient has appropriate tenderness over surgical incisions. Dressing is clean, dry, intact. Results & Data ([facility]) Vital Signs (Past 12 Hours) Vital Signs Temp Pulse Pulse Resp BP BP Pulse Ox 07/05/21 03:38 92 07/05/21 03:19 36.3 C L 107 H 18 115/74 95 07/04/21 22:45 36.8 C 104 H 18 110/68 93 07/04/21 21:45 36.9 C 105 H 14 114/70 94 07/04/21 20:45 37.2 C 107 H 16 112/73 95 07/04/21 20:15 36.8 C 106 H 16 112/70 92 07/04/21 19:45 37.1 C 102 H 99/66 L 94 07/04/21 19:15 36.7 C 100 H 13 119/73 94 07/04/21 19:00 36.7 C 98 H 18 111/72 94 PG Care Time/CCT Total # of Minutes Spent Total Time Spent with Patient: Total time spent is greater than 50% in coordination of care (as documented) at patient's floor/unit and/or counseling patient: Coding Level of Care Code None Diagnoses Colon stricture K56.699
[2021-07-05 07:04] LABS: BUN Creatinine Ratio 16.4 (10-20); Calcium 8.4 mg/dl (8.5-10.1); Est GFR (African American) 63.6 ml/min; Est GFR (Non-African American) 54.9 ml/min; Potassium 4.4 mmol/L (3.5-5.1)
[2021-07-05] MEDS ORDERED: ALBUT/IPRATROP 3MG/0.5MG NEB 3 ML VIAL INH PRN (07:38)
[2021-07-05] MEDS ORDERED: ALBUT/IPRATROP 3MG/0.5MG NEB 3 ML VIAL ONE (07:42)
[2021-07-05] MEDS: ALBUT/IPRATROP 3MG/0.5MG NEB 3 ML VIAL INH SCH (07:47)
[2021-07-05] MEDS: PANTOprazole 40 MG TAB PO SCH (09:22)
[2021-07-05] MEDS: PREGABALIN 25 MG CAP PO SCH (09:22)
[2021-07-05] MEDS: buPROPion XL 150 MG TABCR PO SCH (09:22)
[2021-07-05] MEDS: METOPROLOL SUCC 25MG EXT REL TAB PO SCH (09:23)
[2021-07-05] MEDS: FLUTICASONE/VILANTEROL 100/25MCG 14 PUFFS/INHALER INH SCH (09:24)
[2021-07-05] MEDS: HEPARIN SOD 5,000 UNIT/0.5 ML VIAL SQ SCH ×2 (10:19→19:59)
[2021-07-05] MEDS: MoRPHine SULFATE PCA 30 MG/30 ML IV PRN (14:11)
[2021-07-05] MEDS: ACETAMINOPHEN 1000 MG/100 ML IV IV SCH ×2 (15:34→23:53)
[2021-07-05] MEDS: SODIUM CHLORIDE 0.9% 1000ML 1,000 ML IV SCH (19:58)
[2021-07-05] MEDS: AMITRIPTYLINE HCL 50 MG TAB PO SCH (19:59)
[2021-07-05] MEDS: traZODone HCL 50 MG TAB PO SCH (19:59)
[2021-07-06] MEDS: LACTATED RINGER'S 1,000 ML IV SCH ×2 (04:01→11:34)
[2021-07-06] MEDS: INSULIN ASPART PER UNIT SC SCH ×3 (06:13→20:45)
[2021-07-06 06:22] LABS: Basophils # (auto) 0.02 K/uL (0-0.2); Basophils % (auto) 0.3 %; Eosinophils # (auto) 0.04 K/uL (0-0.5); Eosinophils % (auto) 0.7 %; Hematocrit (blood only) 31.5 % (37-47); Lymphocytes # (auto) 1.15 K/uL (1.2-3.4); Lymphocytes % (auto) 18.9 %; Mean Corpuscular Hemoglobin 30.6 pg (25-34); Mean Corpuscular Hgb Conc 31.7 g/dL (32-36); Mean Corpuscular Volume 96.3 fL (80-100); Mean Platelet Volume 9.8 fL (7.4-10.4); Monocytes # (auto) 0.63 K/uL (0.11-0.59); Monocytes % (auto) 10.3 %; Neutrophils # (auto) 4.26 K/uL (1.4-6.5); Neutrophils % (auto) 69.8 %; Platelet Count 222 K/uL (130-400); RDW Coefficient of Variation 13.9 % (11.5-14.5); RDW Standard Deviation 49.4 fL (36.4-46.3); Red Blood Count 3.27 M/uL (4.2-5.4)
[2021-07-06] MEDS: ACETAMINOPHEN 1000 MG/100 ML IV IV SCH (06:30)
[2021-07-06 06:51] LABS: BUN Creatinine Ratio 16.3 (10-20); Calcium 8.1 mg/dl (8.5-10.1); Creatinine Clr Calc Pharmacy 60.3 ml/min; Est GFR (African American) 68.1 ml/min; Est GFR (Non-African American) 58.8 ml/min
[2021-07-06] MEDS: PANTOprazole 40 MG TAB PO SCH (08:35)
[2021-07-06] MEDS: buPROPion XL 150 MG TABCR PO SCH (08:36)
[2021-07-06] MEDS: METOPROLOL SUCC 25MG EXT REL TAB PO SCH (08:36)
[2021-07-06] MEDS: HEPARIN SOD 5,000 UNIT/0.5 ML VIAL SQ SCH ×3 (08:37→22:53)
[2021-07-06] MEDS: FLUTICASONE/VILANTEROL 100/25MCG 14 PUFFS/INHALER INH SCH (08:37)
[2021-07-06] MEDS: PREGABALIN 25 MG CAP PO SCH (08:40)
--- NOTE | 2021-07-06 09:02 | Surgery Progress Note ---
Date of Service July 06, 2021 Assessment & Plan (1) Colon stricture: Plan: POD#2 right colon resection WBC 6, Hbg 10. On 4L nasal cannula, BP borderline low. Patient feeling well. Pain controlled currently with TRANSPORTATION AGENT and IV apap. Will add some doses of toradol Incisions c/d/i, no signs of infection. Change dressing today Can trial advancing to clear liquids as starting to pass flatus,Awaiting further return of bowel function May consider transitioning to PO meds later today vs tomorrow Continue out of bed as tolerates and pulmonary toilet Admission and Anticipated Discharge Date Admission Date: July 04, 2021 Supervising Physician Co-Signing Physician Notes Pnt S&E, agree with above. hypoglycemia early am, responded to dextrose. Also, somewhat somnolent and required O2, talent management manager interval decreased. Passed flatus, will start on clears, if tolerates then oral pain meds. add toradol. decrease ivf's. Subjective Patient feeling pretty good. Pain controlled on current regimen. She did report a little bit of lightheadedness when she got up, but feels okay now sitting in the chair. Has been voiding and out of bed. Is thirsty. Started passing flatus on return visit. No BM yet. Physical Exam Physical Exam: awake/alert, sitting up in chair Constitutional: no acute distress Respiratory: normal respiratory effort Gastrointestinal (Abdomen): Inspection/Auscultation: + abdominal surgical incision (c/d/i with midline nate and melissa drain); abdomen not distended Percussion/Palpation: + abdomen tender (some lou-incisional ttp) and abdomen soft Results & Data ([facility]) Vital Signs (Past 12 Hours) Vital Signs Temp Pulse Resp BP BP Pulse Ox 07/06/21 07:26 36.7 C 87 16 92/60 L 93 07/06/21 04:00 96 H 92 07/06/21 03:51 36.7 C 103 H 16 112/70 74 L 07/05/21 22:51 36.6 C 86 18 104/68 98 PG Care Time/CCT Total # of Minutes Spent Total Time Spent with Patient: Total time spent is greater than 50% in coordination of care (as documented) at patient's floor/unit and/or counseling patient: Coding Level of Care Code None Diagnoses Colon stricture K56.699
--- NOTE | 2021-07-06 10:47 | Consultation ---
Date of Consultation July 06, 2021 Assessment & Plan (1) Colon stricture: 2nd to Crohn's disease. POD #2 - s/p laparoscopic right-sided hemicolectomy. Defer pain management, IV fluids, diet advancement, etc to general surgery. (2) COPD with emphysema: Without exacerbation at this time. Continue breo. Continue albuterol prn. Does have mild NC O2 requirement - suspect due to atelectasis in the setting of #1. Encouraged pulmonary toilet with incentive spirometry. No evidence of pulmonary edema. (3) Hypoglycemia: Resolved. Holding home oral agents. She is being started on clear liquids by surgery - hopefully she will not have any further lows. If lows persist consider adding dextrose to her IV fluids. (4) Hypotension: 2nd to prolonged fasting, mild acute blood loss from surgery, blood pressure meds, etc. Check orthostatic BPs. Hold metoprolol. Again I confirmed with her that she is NOT on chronic steroid therapy for her IBD or COPD thus john's/adrenal insufficiency is unlikely. However, if BPs continue to be low and if hypoglycemia persists consider checking cortisol level. Continue current IV fluids. (5) Dizziness: 2nd to low BP. check orthostatic BPs. Narcotics can contribute to this as well (6) Obstructive sleep apnea syndrome: Patient will call her family and will ask them to bring her home CPAP unit tonight. Order placed for such. (7) Crohns disease: Dx 2020. Follows with Dr Nain Pacheco - [facility]. Typically on remicade. I confirmed with her she is NOT on chronic steroid therapy for her IBD (or COPD). Holding mercaptopurine in the setting of her acute hospitalization. (8) DM type 2 (diabetes mellitus, type 2): Holding oral agents. Loose novolog sliding scale but suspect she will not require much (last a1c was nearly 6%). Change BSGs to ac/hs now that clears have been started. Add basal insulin during the stay, if necessary. (9) Hypertension: Now with hypotension this am and dizziness. HOLD metoprolol succinate. Check orthostatic BPs. (10) Hyperlipidemia: Ok to hold statin while here. (11) Chronic low back pain: s/p multiple lumbar surgeries in the past. No issues today. (12) Chronic headaches: Tylenol is currently scheduled for post-op abdominal pain - this will help headaches. Toradol prn. Medical record lists migraines as a previous diagnosis. (13) Depression: Takes a combination of amitriptyline, wellbutrin, and trazodone. Consider d/c of amitriptyline as this can contribute to poor bowel function/constipation/motility issues. No recent issues with depression fortunately. (14) DVT prophylaxis: increase heparin to q8h dosing as she has normal renal function. Thank you for this consult. The hospitalist team will follow with you. Recheck cbc, bmp in am. History of Present Illness Requesting Physician: Kavon Culver DO Reason for Consultation: post-op medical management of T2DM, COPD, hypoglycemia Attending Physician: Gildardo Woods MD, FACS History of Present Illness Pleasant 61yo female with h/o LALO, T2DM, COPD, and Crohn's Disease on Remicade infusions who presented for right-sided laparoscopic hemicolectomy on 07/04/[address] Woods. The patient had been dealing with a colonic stricture in the right colon likely due to her Crohn's. She had been having obstructive like symptoms for some time and difficulty eating because of the stricture with reported 30 pounds of weight loss over the last year. She was to have the surgery at [facility] this week but it was canceled as they would not accept her insurance. She is now POD #2 from her surgery. Yesterday was a "bad" day with significant abdominal pain and just feeling poorly overall. Today she has less abdominal pain and did pass a limited amount of flatus this am. General surgery to start a clear liquid diet today. She has been requiring NC O2 since her operation. However, she denies any dyspnea. She is on CPAP at home for LALO but does not have her device here. She is not on supplemental O2 at home. In addition, she reports a headache over the bifrontal regions. She has anup quent headaches at home. Usually takes tylenol which resolves them. Finally, the patient had hypoglycemia and dizziness this am - both improved by the time of my consultation. Allergies Allergy/AdvReac Type Severity Reaction Status Date / Time No Known Allergies Allergy Verified 07/04/21 11:22 Home Medications Medication Instructions Recorded Confirmed Type amitriptyline 50 mg tablet 50 mg PO HS 08/25/18 07/04/21 History cholecalciferol (vitamin D3) 25 1,000 unit PO QAM 08/25/18 07/03/21 History mcg (1,000 unit) capsule (Vitamin D3) oxycodone 5 mg tablet 5 mg PO Q12H 07/06/20 07/04/21 History bupropion HCl 150 mg 24 hr tablet, 150 mg PO QAM 08/08/20 07/04/21 History extended release multivit-iron 18 mg-folic acid 400 1 tab PO QAM 08/08/20 07/04/21 History mcg-calcium 500 mg-minerals tablet (Women's One Daily) pregabalin 25 mg capsule (Lyrica) 25 mg PO QAM 01/16/21 07/03/21 History albuterol sulfate 90 mcg/actuation 2 puff INHALATION Q4H PRN #8.5 g 02/12/21 07/04/21 Rx aerosol inhaler glipizide 2.5 mg tablet, extended 2.5 mg PO QDD 02/15/21 07/04/21 History release 24 hr mercaptopurine 50 mg tablet 50 mg PO QAM 02/15/21 07/04/21 History atorvastatin 40 mg tablet 40 mg PO HS 03/17/21 07/04/21 History infliximab 100 mg intravenous 100 mg IV Q8WK 03/17/21 07/04/21 History solution (Remicade) metoprolol succinate 25 mg 25 mg PO QAM 03/17/21 07/04/21 History tablet,extended release 24 hr trazodone 50 mg tablet 50 mg PO HS 03/17/21 07/04/21 History ipratropium 0.5 mg-albuterol 3 mg 3 ml INHALATION QID #180 ml 03/19/21 07/03/21 Rx (2.5 mg base)/3 mL nebulization soln pantoprazole 40 mg tablet,delayed 40 mg PO QAM #90 tab 06/24/21 07/03/21 Rx release (Protonix) dexamethasone 6 mg tablet 6 mg PO QAM 07/03/21 07/04/21 History (Decadron) fluticasone furoate 100 1 inh INHALATION QAM 07/03/21 07/04/21 History mcg-vilanterol 25 mcg/dose inhalation powder (Breo Ellipta) Patient History Medical History (Updated 07/06/21 @ 11:59 by Sky Lund) Anxiety Asthma Chronic low back pain COPD (chronic obstructive pulmonary disease) inhaler daily/prn, nebulizer daily Crohns disease Depression DM type 2 (diabetes mellitus, type 2) NIDDM GERD (gastroesophageal reflux disease) History of colitis History of COVID-19 diagnosed 03/17/21 @ [facility]--had difficulty breathing d/t COPD and had to hospitalized with oxygen for 1 week, pt states no lingering symptoms History of migraine Hyperlipidemia Hypertension LALO (obstructive sleep apnea) CPAP Ovarian cyst Surgical History History of appendectomy History of carpal tunnel surgery BL History of colonoscopy last 02/21/21 @ [facility] History of D&C History of esophagogastroduodenoscopy (EGD) History of lumbar surgery x 5; hardware present History of tooth extraction History of tubal ligation S/P colon resection (07/04/21) Laparoscopic Assisted Right Colon Resection - Gildardo Woods MD, FACS 07/04/2021 Family History (Updated 07/06/21 @ 11:39 by Sky Lund) Brother Diabetes Father , in early 60s from AMI Diabetes Myocardial infarction Mother , in her 60s; "natural" causes No problems noted. 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 Required: No Beliefs That Will Affect Care: None marital status: Current Living Situation: Family Current Living Situation Comment: Lives with and grandson current occupational status: retired current occupation: worked at [employer] How many Children do You have: 1 Other Information That Helps Us Care for You: No other: lives in [place] Feels Safe at Home: Yes Safety Concerns: Feels Safe At This Time Assistive Devices: Denture - Upper, Denture - Lower and Glasses Review of Systems Review of Systems: gen - no fevers/chills; +weight loss = 30 pounds in the last year eyes - no change in vision recently HENT - no change/loss of taste/smell; no dysphagia CV - no cp, no orthopnea pulm - chronic cough from COPD; no dyspnea at rest or with activity GI - bloating/pain from surgery; no nausea/vomiting; no recent rectal bleeding - voiding w/o difficulty musculo - denies joint pains skin - no rash neuro - no paresthesias; chronic headaches endo - diabetes - just on oral agents at [facility] psych - depression, but controlled with meds Physical Exam Physical Exam: gen - a/o x 3, pleasant, sitting in chair, no distress eyes - PERRL HENT - MMM, no lesions neck - no JVD, shotty lymph node on right heart - RRR, s1 s2, no murmur lungs - decreased BS bases, mild dry rales bases, no wheezes, no increased work of breathing abd - mildly distended but NT, large dressing in place over central abdomen, BS decreased, no HSM ext - trace edema b/l, pulses 2+ b/l neuro - strength 5/5 x 4 exts; DTRs 2+ b/l upper and lower extremities skin - no rash lymph - no pathologic lymph nodes present cervical region psych - a/o x 3, normal affect Results & Data ([facility]) Vital Signs (Past 12 Hours) Vital Signs Temp Pulse Resp BP BP Pulse Ox 07/06/21 07:26 36.7 C 87 16 92/60 L 93 07/06/21 04:00 96 H 92 07/06/21 03:51 36.7 C 103 H 16 112/70 74 L 07/05/21 22:51 36.6 C 86 18 104/68 98 Laboratory Results Laboratory Results - last 24 hr 07/05/21 07/05/21 07/05/21 12:23 18:07 23:43 WBC RBC Hgb Hct MCV MCH MCHC RDW Std Deviation RDW Coeff of Dougie Plt Count MPV Immature Gran % (Auto) Neut % (Auto) Lymph % (Auto) Camp % (Auto) Eos % (Auto) Baso % (Auto) Neut # (Auto) Lymph # (Auto) Camp # (Auto) Eos # (Auto) Baso # (Auto) Immature Gran # (Auto) Sodium Potassium Chloride Carbon Dioxide Anion Gap BUN Creatinine Est Cr Clr Drug Dosing Est GFR ( Amer) Est GFR (Non-Af Amer) BUN/Creatinine Ratio Glucose POC Glucose 96 80 76 Calcium 07/06/21 07/06/21 07/06/21 05:27 05:27 06:10 WBC 6.10 RBC 3.27 L Hgb 10.0 L Hct 31.5 L MCV 96.3 MCH 30.6 MCHC 31.7 L RDW Std Deviation 49.4 H RDW Coeff of Dougie 13.9 Plt Count 222 MPV 9.8 Immature Gran % (Auto) 0.0 Neut % (Auto) 69.8 Lymph % (Auto) 18.9 Camp % (Auto) 10.3 Eos % (Auto) 0.7 Baso % (Auto) 0.3 Neut # (Auto) 4.26 Lymph # (Auto) 1.15 L Camp # (Auto) 0.63 H Eos # (Auto) 0.04 Baso # (Auto) 0.02 Immature Gran # (Auto) 0.00 Sodium 135 L Potassium 4.0 Chloride 102 Carbon Dioxide 29 Anion Gap 4 BUN 17 Creatinine 1.04 Est Cr Clr Drug Dosing 60.3 Est GFR ( Amer) 68.1 Est GFR (Non-Af Amer) 58.8 BUN/Creatinine Ratio 16.3 Glucose 59 L POC Glucose 53 L* Calcium 8.1 L 07/06/21 07/06/21 06:15 06:34 WBC RBC Hgb Hct MCV MCH MCHC RDW Std Deviation RDW Coeff of Dougie Plt Count MPV Immature Gran % (Auto) Neut % (Auto) Lymph % (Auto) Camp % (Auto) Eos % (Auto) Baso % (Auto) Neut # (Auto) Lymph # (Auto) Camp # (Auto) Eos # (Auto) Baso # (Auto) Immature Gran # (Auto) Sodium Potassium Chloride Carbon Dioxide Anion Gap BUN Creatinine Est Cr Clr Drug Dosing Est GFR ( Amer) Est GFR (Non-Af Amer) BUN/Creatinine Ratio Glucose POC Glucose 49 L* 185 H Calcium PG Care Time/CCT Total # of Minutes Spent Total Time Spent with Patient: Total time spent is greater than 50% in coordination of care (as documented) at patient's floor/unit and/or counseling patient: Coding Level of Care Code 29727 Inpt Consult Level 4 Diagnoses Colon stricture K56.699 COPD with emphysema J43.9 Obstructive sleep apnea syndrome G47.33 Crohns disease K50.90 DM type 2 (diabetes mellitus, type 2) E11.9 Hypertension I10 Hyperlipidemia E78.5 Chronic low back pain M54.5; G89.29 Chronic headaches R51.9; G89.29 Hypotension I95.9 Hypoglycemia E16.2 DVT prophylaxis Z29.9 Dizziness R42 Depression F32.9
[2021-07-06] MEDS: MoRPHine SULFATE PCA 30 MG/30 ML IV PRN (11:49)
[2021-07-06] MEDS: KETOROLAC TROMETHAMINE 15 MG/ML VIAL IV PRN (12:08)
[2021-07-06] MEDS ORDERED: LACTATED RINGER'S 1,000 ML IV ONE (13:23)
[2021-07-06] MEDS: D5W AND LACTATED RINGERS 1,000 ML IV SCH (14:46)
[2021-07-06] MEDS ORDERED: MoRPHine SULFATE 2 MG/ML CARP IV PRN (16:39)
[2021-07-06] MEDS: oxyCODONE HCL IR 5 MG TAB (IMMEDIATE RELEASE) PO PRN (16:55)
[2021-07-06] MEDS: ACETAMINOPHEN 325 MG TAB PO SCH ×2 (18:09→22:51)
[2021-07-06] MEDS: AMITRIPTYLINE HCL 50 MG TAB PO SCH (22:40)
[2021-07-06] MEDS: traZODone HCL 50 MG TAB PO SCH (22:40)
[2021-07-07] MEDS: D5W AND LACTATED RINGERS 1,000 ML IV SCH ×2 (00:33→10:37)
[2021-07-07] MEDS: ACETAMINOPHEN 325 MG TAB PO SCH ×4 (05:40→22:29)
[2021-07-07] MEDS: HEPARIN SOD 5,000 UNIT/0.5 ML VIAL SQ SCH ×3 (05:41→22:27)
[2021-07-07 07:29] LABS: Basophils # (auto) 0.02 K/uL (0-0.2); Basophils % (auto) 0.4 %; Eosinophils # (auto) 0.24 K/uL (0-0.5); Eosinophils % (auto) 4.8 %; Hematocrit (blood only) 28.8 % (37-47); Hemoglobin 9.2 g/dL (12.0-16.0); Immature Granulocytes # (auto) 0.02 K/uL (0.00-0.02); Immature Granulocytes % (auto) 0.4 %; Lymphocytes # (auto) 1.06 K/uL (1.2-3.4); Lymphocytes % (auto) 21.3 %; Mean Corpuscular Hemoglobin 30.5 pg (25-34); Mean Corpuscular Hgb Conc 31.9 g/dL (32-36); Mean Corpuscular Volume 95.4 fL (80-100); Mean Platelet Volume 9.7 fL (7.4-10.4); Monocytes # (auto) 0.33 K/uL (0.11-0.59); Monocytes % (auto) 6.6 %; Neutrophils % (auto) 66.5 %; Platelet Count 215 K/uL (130-400); RDW Coefficient of Variation 13.7 % (11.5-14.5); RDW Standard Deviation 47.9 fL (36.4-46.3); Red Blood Count 3.02 M/uL (4.2-5.4); White Blood Count 4.97 K/uL (4.8-10.8)
[2021-07-07 07:49] LABS: Calcium 7.9 mg/dl (8.5-10.1); Creatinine Clr Calc Pharmacy 69.7 ml/min; Est GFR (African American) 81.1 ml/min; Potassium 3.6 mmol/L (3.5-5.1)
[2021-07-07] MEDS: FLUTICASONE/VILANTEROL 100/25MCG 14 PUFFS/INHALER INH SCH (08:04)
--- NOTE | 2021-07-07 08:43 | Surgery Progress Note ---
Date of Service July 07, 2021 Assessment & Plan (1) Colon stricture: Plan: POD 3 right colectomy start full liquids labs stable on prn morphine, Tylenol, morphine seen with Dr. Culver Admission and Anticipated Discharge Date Admission Date: July 04, 2021 Supervising Physician Co-Signing Physician Notes Pnt S&E, agree with above. some pain this morning, awaiting pain meds. Passing flatus, will advance to fulls. oral pain meds, oobtc, ambulate, is. Subjective some pain this AM but overall better, no BM yet Physical Exam Constitutional: WD/WN, vitals as above Gastrointestinal (Abdomen): Inspection/Auscultation: + abdominal surgical incision (minimal melissa drainage); abdomen not distended Percussio n/Palpation: abdomen soft Results & Data ([facility]) Vital Signs (Past 12 Hours) Vital Signs Temp Pulse Resp BP BP Pulse Ox 07/07/21 07:17 36.7 C 93 H 18 115/73 90 07/07/21 00:35 36.7 C 98 H 15 105/66 98 07/06/21 22:55 84 L PG Care Time/CCT Total # of Minutes Spent Total Time Spent with Patient: Total time spent is greater than 50% in coordination of care (as documented) at patient's floor/unit and/or counseling patient: Coding Level of Care Code None Diagnoses Colon stricture K56.699
[2021-07-07] MEDS: oxyCODONE HCL IR 5 MG TAB (IMMEDIATE RELEASE) PO PRN ×2 (08:49→20:34)
[2021-07-07] MEDS: PANTOprazole 40 MG TAB PO SCH (08:49)
[2021-07-07] MEDS: buPROPion XL 150 MG TABCR PO SCH (08:49)
[2021-07-07] MEDS: PREGABALIN 25 MG CAP PO SCH (08:50)
[2021-07-07] MEDS: INSULIN ASPART PER UNIT SC SCH ×4 (08:53→20:28)
[2021-07-07] MEDS: KETOROLAC TROMETHAMINE 15 MG/ML VIAL IV PRN (12:55)
--- NOTE | 2021-07-07 14:53 | Hospitalist Progress Note ---
Date of Service July 07, 2021 Assessment & Plan (1) Colon stricture: Plan: 2nd to Crohn's disease. POD #3 - s/p laparoscopic right-sided hemicolectomy. Defer pain management, IV fluids, diet advancement, etc to general surgery. (2) COPD with emphysema: Plan: Without exacerbation at this time. Continue breo. Continue albuterol prn. Weaned off supplemental O2 w/ adequate pulse ox of 90% on RA Encouraged pulmonary toilet with incentive spirometry. No evidence of pulmonary edema. (3) Hypoglycemia: Plan: Resolved. Holding home oral agents. She is tolerating oral intake, advanced to full liq today Started on IVF w/ D5 and LR by consulting provider but will d/c at this time (4) Hypotension: Plan: 2nd to prolonged fasting, mild acute blood loss from surgery, blood pressure meds, etc. Check orthostatic BPs. Hold metoprolol. She is NOT on chronic steroid therapy for her IBD or COPD thus john's/adrenal insufficiency is unlikely. Cortisol level checked this AM and was WNL BP stable, can d/c IVF (5) Dizziness: Plan: 2nd to low BP. check orthostatic BPs ordered but not documented Narcotics can contribute to this as well (6) Obstructive sleep apnea syndrome: Plan: Use CPAP at HS, family to bring it in (7) Crohns disease: Plan: Dx 2020. Follows with Dr Nain Pacheco - [facility]. Typically on remicade. Confirmed with her she is NOT on chronic steroid therapy for her IBD (or COPD). Holding mercaptopurine in the setting of her acute hospitalization. (8) DM type 2 (diabetes mellitus, type 2): Plan: Holding oral agents. Loose novolog sliding scale but suspect she will not require much (last a1c was nearly 6%). Change BSGs to ac/hs now that clears have been started. Add basal insulin during the stay, if necessary. (9) Hypertension: Plan: Now with hypotension this am and dizziness. HOLD metoprolol succinate. Check orthostatic BPs. (10) Depression: Plan: Takes a combination of amitriptyline, wellbutrin, and trazodone. Consider d/c of amitriptyline as this can contribute to poor bowel function/constipation/motility issues. No recent issues with depression fortunately. (11) DVT prophylaxis: Plan: increase heparin to q8h dosing as she has normal renal function. Plan: No further recommendations at this time. Interventions as outlined above. Will continue to follow along. F/u labs in AM. Admission and Anticipated Discharge Date Admission Date: July 04, 2021 Subjective Patient seen on rounds this morning. She is resting in bedside chair. Only complaint is some mild pain at her incision site. She is passing flatus but no BM yet. Denies dizziness/lightheadedness, chest pain, dyspnea, n/v/d, f/c, headache, or gu symptoms. She is tolerating her diet. Review of Systems Review of Systems: CONSTITUTIONAL: +30 lb weight loss over past year. Denies weight gain, fever and chills, fatigue, malaise, generalized weakness. HEENT: Denies changes in vision and hearing. RESPIRATORY: Denies SOB, cough, wheezing. CV: Denies palpitations, CP, lower extremity edema, orthopnea, PND. GI: +incisional pain. Denies abdominal pain, nausea, vomiting and diarrhea. : Denies dysuria and urinary frequency, urgency, hesitancy. MUSCULOSKELETAL: Denies myalgia and joint pain. SKIN: Denies rash and pruritus. NEUROLOGICAL: Denies headache, syncope, focal weakness, numbness, tingling. PSYCHIATRIC: Denies recent changes in mood. Denies anxiety and depression. Physical Exam Physical Exam: GENERAL: 61 yo thin but not cachectic middle aged WF. NAD. LUNGS: Diminished in bases. Fair air exchange. No wheezes or rhonchi. CARDIOVASCULAR: Regular rate and rhythm. No M/G/R. ABDOMEN: Soft, mild incisional tenderness. Incision dressed, dry. BS normal x 4 quad. EXTREMITIES: No edema. Non-tender. Peripheral pulses +2/4. NEUROLOGIC: A&O x3. PSYCHIATRIC: Cooperative. Appropriate mood and affect. SKIN: Abd incision. Otherwise warm, dry, intact. No rashes or lesions. Results & Data Results & Data ([facility]) Vital Signs (Past 12 Hours) Vital Signs Temp Pulse Resp BP Pulse Ox 07/07/21 07:17 36.7 C 93 H 18 115/73 90 Laboratory Results 07/07/21 06:53 07/07/21 06:53 PG Care Time/CCT Total # of Minutes Spent Total Time Spent with Patient: Total time spent is greater than 50% in coordination of care (as documented) at patient's floor/unit and/or counseling patient: Coding Level of Care Code 52619 Subseq Hosp Care Lvl 2 Diagnoses Colon stricture K56.699 COPD with emphysema J43.9 Hypoglycemia E16.2 Hypotension I95.9 Dizziness R42 Obstructive sleep apnea syndrome G47.33 Crohns disease K50.90 DM type 2 (diabetes mellitus, type 2) E11.9 Hypertension I10 Depression F32.9 DVT prophylaxis Z29.9
[2021-07-07] MEDS: traZODone HCL 50 MG TAB PO SCH (20:34)
[2021-07-07] MEDS: AMITRIPTYLINE HCL 50 MG TAB PO SCH (20:34)
[2021-07-08] MEDS: ACETAMINOPHEN 325 MG TAB PO SCH ×4 (06:21→23:30)
[2021-07-08] MEDS: HEPARIN SOD 5,000 UNIT/0.5 ML VIAL SQ SCH ×3 (06:22→21:00)
[2021-07-08 06:46] LABS: Basophils # (auto) 0.02 K/uL (0-0.2); Basophils % (auto) 0.5 %; Eosinophils # (auto) 0.35 K/uL (0-0.5); Eosinophils % (auto) 8.3 %; Hematocrit (blood only) 28.4 % (37-47); Hemoglobin 9.2 g/dL (12.0-16.0); Immature Granulocytes # (auto) 0.01 K/uL (0.00-0.02); Immature Granulocytes % (auto) 0.2 %; Lymphocytes # (auto) 1.35 K/uL (1.2-3.4); Mean Corpuscular Hemoglobin 30.7 pg (25-34); Mean Corpuscular Hgb Conc 32.4 g/dL (32-36); Mean Corpuscular Volume 94.7 fL (80-100); Mean Platelet Volume 9.6 fL (7.4-10.4); Monocytes # (auto) 0.27 K/uL (0.11-0.59); Monocytes % (auto) 6.4 %; Neutrophils # (auto) 2.22 K/uL (1.4-6.5); Neutrophils % (auto) 52.6 %; Platelet Count 260 K/uL (130-400); RDW Coefficient of Variation 13.7 % (11.5-14.5); RDW Standard Deviation 47.5 fL (36.4-46.3); White Blood Count 4.22 K/uL (4.8-10.8)
[2021-07-08 07:14] LABS: BUN Creatinine Ratio 10.2 (10-20); Calcium 7.9 mg/dl (8.5-10.1); Creatinine Clr Calc Pharmacy 71.3 ml/min; Est GFR (African American) 83.4 ml/min; Est GFR (Non-African American) 71.9 ml/min; Potassium 3.6 mmol/L (3.5-5.1)
[2021-07-08] MEDS: PANTOprazole 40 MG TAB PO SCH (07:39)
[2021-07-08] MEDS: FLUTICASONE/VILANTEROL 100/25MCG 14 PUFFS/INHALER INH SCH (07:39)
[2021-07-08] MEDS: buPROPion XL 150 MG TABCR PO SCH (07:39)
[2021-07-08] MEDS: PREGABALIN 25 MG CAP PO SCH (07:40)
[2021-07-08] MEDS: oxyCODONE HCL IR 5 MG TAB (IMMEDIATE RELEASE) PO PRN ×2 (07:44→14:55)
--- NOTE | 2021-07-08 08:14 | Surgery Progress Note ---
Date of Service July 08, 2021 Assessment & Plan (1) Colon stricture: Plan: POD 4 right colectomy advance diet labs stable, Hgb 9.[address] Woods Admission and Anticipated Discharge Date Admission Date: July 04, 2021 Subjective tolerating full liquids, no BM Physical Exam 2 Gastrointestinal (Abdomen): Inspection/Auscultation: + abdominal surgical incision (minimal melissa drainage); abdomen not distended Percussion/Palpation: abdomen soft Results & Data ([facility]) Vital Signs (Past 12 Hours) Vital Signs Temp Pulse Resp BP Pulse Ox 07/08/21 07:51 37 C 101 H 18 134/83 90 07/07/21 23:22 36.6 C 96 H 16 129/76 90 PG Care Time/CCT Total # of Minutes Spent Total Time Spent with Patient: Total time spent is greater than 50% in coordination of care (as documented) at patient's floor/unit and/or counseling patient: Coding Level of Care Code None Diagnoses Colon stricture K56.699
[2021-07-08] MEDS: INSULIN ASPART PER UNIT SC SCH ×4 (08:35→20:59)
--- NOTE | 2021-07-08 12:31 | Hospitalist Progress Note ---
Date of Service July 08, 2021 Assessment & Plan (1) Colon stricture: Plan: 2nd to Crohn's disease. POD #4 - s/p laparoscopic right-sided hemicolectomy. Defer pain management, IV fluids, diet advancement, etc to general surgery. (2) COPD with emphysema: Plan: Without exacerbation at this time. Continue breo. Continue albuterol prn. Weaned off supplemental O2 w/ adequate pulse ox of 90% on RA Encouraged pulmonary toilet with incentive spirometry. No evidence of pulmonary edema. (3) Hypoglycemia: Plan: RESOLVED. Holding home oral agents. She is tolerating oral intake, advanced to full liq today Started on IVF w/ D5 and LR by consulting provider but will d/c at this time (4) Hypotension: Plan: 2nd to prolonged fasting, mild acute blood loss from surgery, blood pressure meds, etc. RESOLVED. Orthostatic VS ordered but performed. At this point, hypotension has resolved. No need for orthostatics. Hold metoprolol. She is NOT on chronic steroid therapy for her IBD or COPD thus john's/adrenal insufficiency is unlikely. Cortisol level checked and was WNL Fluids d/c'd on 07/07 (5) Dizziness: Plan: 2nd to low BP. RESOLVED. check orthostatic BPs ordered but never performed. No longer need to check as this has resolved. Narcotics can contribute to this as well (6) Obstructive sleep apnea syndrome: Plan: Use CPAP at HS, family to bring it in (7) Crohns disease: Plan: Dx 2020. Follows with Dr Nain Pacheco - [facility]. Typically on remicade. Confirmed with her she is NOT on chronic steroid therapy for her IBD (or COPD). Holding mercaptopurine in the setting of her acute hospitalization. Will d/w Dr. Pacheco if she will need her next scheduled Remicade treatment at the end of this month. (8) DM type 2 (diabetes mellitus, type 2): Plan: Holding oral agents. Loose novolog sliding scale but suspect she will not require much (last a1c was nearly 6%). Change BSGs to ac/hs now that diet ordered. Can add basal insulin during the stay, if necessary. (9) Hypertension: Plan: Now that hypotension has resolved. Can resume Metoprolol Succinate. (10) Depression: Plan: Takes a combination of amitriptyline, wellbutrin, and trazodone. Consider d/c of amitriptyline as this can contribute to poor bowel function/constipation/motility issues. No recent issues with depression fortunately. (11) DVT prophylaxis: Plan: increase heparin to q8h dosing as she has normal renal function. Plan: No further recommendations at this time. Will sign off but continue to do daily chart checks. Thank you for allowing us to participate in this patient's care. Please feel free to reconsult if the need should arise. Admission and Anticipated Discharge Date Admission Date: July 04, 2021 Subjective Pt seen on rounds today. She pod#4 from her hemicolectomy. Incision pain is better controlled. Denies n/v. Tolerating full liquid diet, would like to have diet advanced. Denies fever, chills, cp, dyspnea. Review of Systems Review of Systems: CONSTITUTIONAL: +30 lb weight loss over past year. Denies weight gain, fever and chills, fatigue, malaise, generalized weakness. HEENT: Denies changes in vision and hearing. RESPIRATORY: Denies SOB, cough, wheezing. CV: Denies palpitations, CP, lower extremity edema, orthopnea, PND. GI: +incisional pain--better today. Denies abdominal pain, nausea, vomiting and diarrhea. : Denies dysuria and urinary frequency, urgency, hesitancy. MUSCULOSKELETAL: Denies myalgia and joint pain. SKIN: Denies rash and pruritus. NEUROLOGICAL: Denies headache, syncope, focal weakness, numbness, tingling. PSYCHIATRIC: Denies recent changes in mood. Denies anxiety and depression. Physical Exam Physical Exam: GENERAL: 61 yo thin but not cachectic middle aged WF. NAD. LUNGS: Diminished in bases. Fair air exchange. No wheezes or rhonchi. CARDIOVASCULAR: Regular rate and rhythm. No M/G/R. ABDOMEN: Soft, mild incisional tenderness. Incision dressed, dry. BS normal x 4 quad. EXTREMITIES: No edema. Non-tender. Peripheral pulses +2/4. NEUROLOGIC: A&O x3. PSYCHIATRIC: Cooperative. Appropriate mood and affect. SKIN: Abd incision. Otherwise warm, dry, intact. No rashes or lesions. Results & Data Results & Data ([facility]) Vital Signs (Past 12 Hours) Vital Signs Temp Pulse Resp BP Pulse Ox 07/08/21 07:51 37 C 101 H 18 134/83 90 Laboratory Results 07/08/21 06:08 07/08/21 06:08 PG Care Time/CCT Total # of Minutes Spent Total Time Spent with Patient: Total time spent is greater than 50% in coordination of care (as documented) at patient's floor/unit and/or counseling patient: Coding Level of Care Code 10900 Subseq Hosp Care Lvl 2 Diagnoses Colon stricture K56.699 COPD with emphysema J43.9 Hypoglycemia E16.2 Hypotension I95.9 Dizziness R42 Obstructive sleep apnea syndrome G47.33 Crohns disease K50.90 DM type 2 (diabetes mellitus, type 2) E11.9 Hypertension I10 Depression F32.9 DVT prophylaxis Z29.9
[2021-07-08] MEDS: traZODone HCL 50 MG TAB PO SCH (20:05)
[2021-07-08] MEDS: AMITRIPTYLINE HCL 50 MG TAB PO SCH (20:05)
[2021-07-09] MEDS: HEPARIN SOD 5,000 UNIT/0.5 ML VIAL SQ SCH ×3 (05:50→21:04)
[2021-07-09] MEDS: ACETAMINOPHEN 325 MG TAB PO SCH ×4 (05:50→22:45)
[2021-07-09] MEDS: METOPROLOL SUCC 25MG EXT REL TAB PO SCH (07:47)
[2021-07-09] MEDS: PANTOprazole 40 MG TAB PO SCH (07:48)
[2021-07-09] MEDS: buPROPion XL 150 MG TABCR PO SCH (07:49)
[2021-07-09] MEDS: FLUTICASONE/VILANTEROL 100/25MCG 14 PUFFS/INHALER INH SCH (07:49)
[2021-07-09] MEDS: PREGABALIN 25 MG CAP PO SCH (07:52)
[2021-07-09] MEDS: oxyCODONE HCL IR 5 MG TAB (IMMEDIATE RELEASE) PO PRN ×3 (07:52→21:01)
[2021-07-09] MEDS: INSULIN ASPART PER UNIT SC SCH ×4 (08:39→20:47)
--- NOTE | 2021-07-09 10:04 | Surgery Progress Note ---
Date of Service July 09, 2021 Assessment & Plan (1) Colon stricture: Plan: POD 5 right colectomy stable waiting for Admission and Anticipated Discharge Date Admission Date: July 04, 2021 Supervising Physician Co-Signing Physician Notes As per Milly griffith Patient sitting up on side of bed comfortable no nausea continues to have flatus but has not had a bowel movement we ordered a small suppository this morning but she has not received that yet The abdomen is completely benign We will keep the patient here until her GI function normalizes The path report was seen and discussed with the patient The patient takes oxycodone for her back sometimes at home and I did mention that this may have attributed to her not having bowel movements on a regular basis in the past she has tried to avoid oxycodone here Subjective no complaints, tolerating diet but bowels not yet moved Physical Exam Gastrointestinal (Abdomen): Inspection/Auscultation: + abdominal surgical incision (dressing intact) Results & Data ([facility]) Vital Signs (Past 12 Hours) Vital Signs Temp Pulse Resp BP Pulse Ox 07/09/21 07:08 37 C 89 18 133/80 95 07/08/21 22:45 91 07/08/21 22:40 36.7 C 93 H 16 129/73 87 L PG Care Time/CCT Total # of Minutes Spent Total Time Spent with Patient: Total time spent is greater than 50% in coordination of care (as documented) at patient's floor/unit and/or counseling patient: Coding Level of Care Code None Diagnoses Colon stricture K56.699
[2021-07-09] MEDS ORDERED: bisacodyL 10 MG SUPP PR STA (10:41)
[2021-07-09] MEDS: AMITRIPTYLINE HCL 50 MG TAB PO SCH (21:03)
[2021-07-09] MEDS: traZODone HCL 50 MG TAB PO SCH (21:04)
[2021-07-10] MEDS: ACETAMINOPHEN 325 MG TAB PO SCH (05:36)
[2021-07-10] MEDS: HEPARIN SOD 5,000 UNIT/0.5 ML VIAL SQ SCH (05:36)
[2021-07-10] MEDS: FLUTICASONE/VILANTEROL 100/25MCG 14 PUFFS/INHALER INH SCH (07:45)
[2021-07-10] MEDS: oxyCODONE HCL IR 5 MG TAB (IMMEDIATE RELEASE) PO PRN (07:46)
[2021-07-10] MEDS: PANTOprazole 40 MG TAB PO SCH (07:46)
[2021-07-10] MEDS: PREGABALIN 25 MG CAP PO SCH (07:46)
[2021-07-10] MEDS: buPROPion XL 150 MG TABCR PO SCH (07:47)
[2021-07-10] MEDS: METOPROLOL SUCC 25MG EXT REL TAB PO SCH (07:47)
--- NOTE | 2021-07-10 08:03 | Surgery Progress Note ---
Date of Service July 10, 2021 Assessment & Plan (1) Colonic stricture: Plan: POD 6 right hemicolectomy seen with Dr. Peggy basurto for discharge Admission and Anticipated Discharge Date Admission Date: July 04, 2021 Subjective BM x 2, tolerating diet Physical Exam Gastrointestinal (Abdomen): Inspection/Auscultation: + abdominal surgical incision (no erythema); abdomen not distended Results & Data ([facility]) Vital Signs (Past 12 Hours) Vital Signs Temp Pulse Resp BP Pulse Ox 07/10/21 07:44 36.5 C 83 20 143/84 H 90 07/09/21 22:10 92 07/09/21 22:05 36.8 C 78 18 110/54 L 88 L PG Care Time/CCT Total # of Minutes Spent Total Time Spent with Patient: Total time spent is greater than 50% in coordination of care (as documented) at patient's floor/unit and/or counseling patient: Coding Level of Care Code None Diagnoses Colonic stricture K56.699
[2021-07-10] MEDS: INSULIN ASPART PER UNIT SC SCH (08:49)
--- NOTE | 2021-07-11 13:31 | Discharge Summary ---
Date of Service July 11, 2021 Principal Diagnosis Right colon stricture-Crohn's Discharge Exam Constitutional WD/WN, vitals as above Gastrointestinal (Abdomen) Inspection/Auscultation: + abdominal surgical incision (no erythema); abdomen not distended Percussion/Palpation: abdomen soft Discharge Data Allergies Allergy/AdvReac Type Severity Reaction Status Date / Time No Known Allergies Allergy Verified 07/04/21 11:22 Consultations 07/06/21 09:52 Consult Hospitalist Routine Procedures Performed Operation Date: 07/04/21 12:45 Actual Procedures p Laparoscopic Assisted Right Colon Resection(Not Applicable) - Gildardo Woods MD, FACS Hospital Course (1) Colonic stricture: 61 y/o female with Crohn's and stricture of ascending colon was taken to the operating room for right colectomy. She was transferred to the surgical floor. SubQ heparin was used for DVT prophylaxis. NG was removed perioperatively and she was started on clears on POD 2. SSI was used for cover blood sugars although she did have some hypoglycemia and we asked the hospitalist to help m anage her meds at that point. She was passing flatus on day 3 and advance to full liquids. She was otherwise doing well and was started on low fiber diet on day 4 although we were still waiting for her bowels to move. By day 6 she had moved her bowels overnight and was stable for discharge home. Total Time Total Time Spent Total Time Spent (In Minutes): 15 Discharge Plan Discharge Items Patient Disposition: Home - Self-Care Reason For Visit: Colonic Stricture Discharge Diagnosis: right colon resection Activity: Per Instructions section Lifting: No more than 10 pounds Bathing Comment: may shower; no soaking in tubs/pools Exercise/Sports: Wait until after follow-up appointment Driving/Machine Use: no driving while taking narcotics Non-emergency contact: Surgeon Call non-emergency contact if: you have any medication questions, your symptoms worsen, your pain is not controlled, your pain is worsening, you have a fever, your temperature is above 101.5, your wound has increased redness, your wound has increased drainage and your wound pain has increased Follow-up/Referrals: Gildardo Woods MD, FACS [Surgeon] - 07/17/21 9:45 am (Please call to schedule follow up in clinic within 1 week) Chel Ozuna PA-C [Primary Care Provider] - Diet: Low Fiber Addtl Attending Provider Instructions: You have surgical nate that will be removed at one of your follow up appointments Pending Studies at Discharge: Yes Studies:: surgical pathology Stand-Alone Forms: My [facility], Smoking Cessation Medications and DC Order Prescriptions: Continued albuterol sulfate 90 mcg/actuation HFA aerosol inhaler 2 puff inhalation Q4H PRN (Reason: Shortness Of Breath Or Wheezing) Qty: 8.5 RF: 5 pantoprazole [Protonix] 40 mg tablet,delayed release (DR/EC) 40 mg PO QAM Qty: 90 RF: 3 amitriptyline 50 mg Tablet 50 mg PO HS RF: 0 cholecalciferol (vitamin D3) [Vitamin D3] 1,000 unit Capsule 1,000 unit PO QAM RF: 0 oxycodone 5 mg tablet 5 mg PO Q12H RF: 0 bupropion HCl 150 mg tablet extended release 24 hr 150 mg PO QAM RF: 0 Women's One Daily 18 mg iron-400 mcg-500 mg Ca Tablet 1 tab PO QAM RF: 0 dexamethasone [Decadron] 6 mg tablet 6 mg PO QAM RF: 0 Breo Ellipta 100-25 mcg/dose blister with device 1 inh inhalation QAM RF: 0 pregabalin [Lyrica] 25 mg Capsule 25 mg PO QAM RF: 0 glipizide 2.5 mg Tablet Extended Release 24hr 2.5 mg PO QDD RF: 0 mercaptopurine 50 mg tablet 50 mg PO QAM RF: 0 trazodone 50 mg tablet 50 mg PO HS RF: 0 metoprolol succinate 25 mg tablet extended release 24 hr 25 mg PO QAM RF: 0 atorvastatin 40 mg tablet 40 mg PO HS RF: 0 infliximab [Remicade] 100 mg recon soln 100 mg IV Q8WK RF: 0 ipratropium-albuterol 0.5 mg-3 mg(2.5 mg base)/3 mL solution for nebulization 3 ml inhalation QID Qty: 180 RF: 5 Discharge Orders: Discharge Order (Routine); Ordered 07/10/21 Ordered By: Delbert Loja Admission Data Admit Date/Time: 07/04/21 17:38 Attending Provider: Gildardo Woods Admit Provider: Gildardo Woods Primary Care Provider: Chel Ozuna Other Providers: Stuart Keller ; Meeta Cardona ; Christopher Hernandez ; Stan Webster ; Royce Sanchez ; Mohsen Zambrano V. ; Akua Srinivasan ; Sky Lund ; Olvin James ; Jeovany De La Cruz ; Dilip Farr ; Emanuel Thayer ; Sean Luis ; Suzette Ferrera ; Daniela Nj ; Tabitha Moore ; Compa Griffith ; Denae [place] ; Prabha Chapa ; Dona Potter ; Juventino Lima ; Ronn Roman ; Shani Morrissey ; Maritza Hyman ; Silvano Griffin ; Akua Rodrigez ; Jose [place] ; Narciso Baca ; Jason Spivey ; Sky Lu ; Andrea Odonnell ; Darya Haywood ; Katlyn De Leon ; Fran Mckeon ; Denae Hurley ; Stuart Deras ; Trent Stevenson ; Christal Abbott ; Bree Dyer ; Rubén Dorado SDarell Other Interventions: Discharge Summary Assessment (RN) Last Done: 07/10/21 08:52 Coding Level of Care Code D/C DAY MANAGEMENT <30 MINS Diagnoses Colonic stricture K56.699
== END 2021-07-10 10:45 | disposition home or self-care (01) | DRG 329 ==
LOC: ASU 10:36 → 3N 17:38

== ENCOUNTER 2023-04-04 07:10 | Inpatient (IN) ==
[2023-04-04] MEDS ORDERED: ALBUT/IPRATROP 3MG/0.5MG NEB 3 ML VIAL NEB STA (07:21)
[2023-04-04] MEDS ORDERED: methylPREDNISolone 125 MG/2 ML VIAL IV STA (07:21)
--- NOTE | 2023-04-04 07:27 | Emergency Department Note ---
History of Present Illness General Chief Complaint: Shortness of Breath/Dyspnea Stated Complaint: TROUBLE BREATHING Time Seen by Provider: 04/04/23 07:17 History of Present Illness Provider Complaint: shortness of breath and cough Onset (ago): week(s) (1) Severity: severe Consistency/Duration: + progressively worsening Relieved By: + nothing Exacerbated By: + exertion and + coughing Known history of: COPD and asthma Associated symptoms: + chest pain, + cough, + wheezing, + sputum production and + chest congestion; no fever or no hemoptysis HPI Narrative: No recent travel, no hemoptysis, no exogenous hormone usage, no recent surgeries or traumas. No history of intubation or ICU admission secondary to breathing issues. Related Data Home oxygen amount: none Home Medications Medication Instructions Recorded Confirmed Type cholecalciferol (vitamin D3) 25 1,000 unit PO QAM 08/25/18 01/09/23 History mcg (1,000 unit) capsule (Vitamin D3) bupropion HCl 150 mg 24 hr tablet, 150 mg PO QAM 08/08/20 01/09/23 History extended release multivit-iron 18 mg-folic acid 400 1 tab PO QAM 08/08/20 01/09/23 History mcg-calcium 500 mg-minerals tablet (Women's One Daily) albuterol sulfate 90 mcg/actuation 2 puff inhalation Q4H PRN 02/12/21 01/09/23 Rx aerosol inhaler Shortness Of Breath Or Wheezing #8.5 grams atorvastatin 40 mg tablet 40 mg PO HS 03/17/21 01/09/23 History trazodone 50 mg tablet 50 mg PO HS 03/17/21 01/09/23 History ipratropium 0.5 mg-albuterol 3 mg 3 ml inhalation QID #180 mL 03/19/21 01/09/23 Rx (2.5 mg base)/3 mL nebulization soln pantoprazole 40 mg tablet,delayed 40 mg PO QAM gastritis #90 tabs 06/24/21 01/09/23 Rx release (Protonix) ferrous sulfate, dried 159 mg (45 159 mg PO QAM 07/04/22 01/09/23 History mg iron) tablet,extended release (iron ER) fluticasone fur. 100 mcg-umeclid 1 inh inhalation QAM 07/04/22 01/09/23 History 62.5 mcg-vilant 25 mcg inhalat.powder (Trelegy Ellipta) gabapentin 300 mg capsule 300 mg PO TID 07/04/22 01/09/23 History infliximab 100 mg intravenous See Rx Instructions IV Q8WK #8 ea 02/04/23 Rx solution (Remicade) Allergies Allergy/AdvReac Type Severity Reaction Status Date / Time adhesive tape AdvReac Severe TEARS SKIN Verified 01/09/23 10:59 Past Med/Surg History Medical History Anemia Dizziness DVT prophylaxis Hypoglycemia Hypotension History of COVID-19 diagnosed 03/17/21 @ [facility]--had difficulty breathing d/t COPD and had to hospitalized with oxygen for 1 week, pt states no lingering symptoms Crohns disease Encounter for pre-operative examination History of colitis GERD (gastroesophageal reflux disease) DM type 2 (diabetes mellitus, type 2) NIDDM- DIET CONTROLLED Depression Anxiety History of migraine LALO (obstructive sleep apnea) CPAP DVT prophylaxis Asthma COPD (chronic obstructive pulmonary disease) well controlled w/ inhaler daily/prn, has not needed neb in "a while" Chronic low back pain Hyperlipidemia Hypertension Surgical History S/P colon resection (07/04/21) Laparoscopic Assisted Right Colon Resection - Gildardo Woods MD, FACS 07/04/2021 History of esophagogastroduodenoscopy (EGD) History of tooth extraction History of tubal ligation History of D&C History of appendectomy History of lumbar surgery x 5; hardware present History of colonoscopy last 02/21/21 @ [facility] History of carpal tunnel surgery BL Family History Brother Diabetes Father , in early 60s from AMI Diabetes Myocardial infarction Mother , in her 60s; "natural" causes No problems noted. Other No family history of adverse response to anesthesia Denies family history of Inflammatory bowel disease Social History Smoking Status: Former smoker Tobacco Type: Cigarettes packs per day: 2.5; Second Hand Exposure: No; Do You Dip or Chew Tobacco: No; Hx Alcohol Use: No Hx Substance Use: No Preferred Language: Danish Communication Ability: Effective [employer] Minist[employer] Director Required: No Beliefs That Will Affect Care: None marital status: Current Living Situation: Family Current Living Situation Comment: Lives with and grandson current occupational status: retired current occupation: worked at [employer] How many Children do You have: 1 other: lives in [place] Feels Safe at Home: Yes Diet: diabetic Assistive Devices: CPAP, Denture - Upper, Denture - Lower, Glasses and Nebulizer Physical Exam 2 Vital Signs: Vital Signs - 24 hr 04/04/23 07:15 04/04/23 07:15 04/04/23 07:19 Temperature 36.8 C Temperature Source Oral Pulse Rate 122 H Pulse Rate [Right Finger] Pulse Rate from Sp O2 Sensor Respiratory Rate 24 Respiratory Effort / Characteristics Spontaneous Pursed Lip Respiratory Depth Respiratory Patter n Blood Pressure 110/58 L Blood Pressure Edna n 75 Pulse Oximetry 79 L 79 L 79 L Oxygen Delivery Me thod Room Air Room Air Non-rebreather Oxygen Flow Rate 15 Sepsis Recent Feve r Within 48 Hours No Sepsis New/Unexpla ined Change in Men ze Status N/A Sepsis Action Take n by Nursing Physician Notified 04/04/23 07:25 04/04/23 07:29 04/04/23 07:30 Temperature Temperature Source Pulse Rate 120 H 115 H 113 H Pulse Rate [Right Finger] Pulse Rate from Sp O2 Sensor 115 H 111 H Respiratory Rate 28 H 23 Respiratory Effort / Characteristics Respiratory Depth Respiratory Patter n Blood Pressure Blood Pressure Edna n Pulse Oximetry 99 99 Oxygen Delivery Me thod Oxygen Flow Rate Sepsis Recent Feve r Within 48 Hours Sepsis New/Unexpla ined Change in Men ze Status Sepsis Action Take n by Nursing 04/04/23 07:39 04/04/23 07:39 04/04/23 08:00 Temperature Temperature Source Pulse Rate 114 H 107 H Pulse Rate [Right Finger] Pulse Rate from Sp O2 Sensor 112 H 108 H Respiratory Rate 21 23 Respiratory Effort / Characteristics Respiratory Depth Respiratory Patter n Blood Pressure 137/84 Blood Pressure Edna n 105 Pulse Oximetry 96 98 Oxygen Delivery Me thod Oxygen Flow Rate Sepsis Recent Feve r Within 48 Hours Sepsis New/Unexpla ined Change in Men ze Status Sepsis Action Take n by Nursing 04/04/23 08:01 04/04/23 08:28 Temperature Temperature Source Pulse Rate Pulse Rate [Right Finger] 105 H Pulse Rate from Sp O2 Sensor Respiratory Rate 20 Respiratory Effort / Characteristics Spontaneous Spontaneous Access ory Muscle Use Lab ored Short of [place] th Respiratory Depth Retractive Respiratory Patter n Tachypnea Blood Pressure Blood Pressure Edna n Pulse Oximetry 96 Oxygen Delivery Me thod Nasal Cannula Oxygen Flow Rate 5 Sepsis Recent Feve r Within 48 Hours Sepsis New/Unexpla ined Change in Men ze Status Sepsis Action Take n by Nursing Physical Exam: Physical Exam HENT: Exam performed. - Head: Normocephalic and atraumatic. EYES: Conjunctivae and EOM are normal. Right eye exhibits no discharge. Left eye exhibits no discharge. No scleral icterus. NECK: Normal range of motion. Neck supple. No JVD present. CV: Normal rate, regular rhythm, normal heart sounds and intact distal pulses. There is no peripheral edema. Palpable radial pulses bue. PULM/CHEST: Tachypneic. Diminished breath sounds bilaterally. Scant expiratory wheezes bilaterally. ABD: The abdomen is soft. There is no tenderness. NEURO: Motor and sensation grossly intact. SKIN: Skin is warm and dry. He is not diaphoretic. PSYCH: normal mood and affect. Behavior is normal. Judgment and thought content normal. Course Course 0717: The patient was evaluated in room A2. A complete history and physical exam was performed Cardiac monitoring: An order was placed for continuous cardiac monitoring. The monitor shows a rate of 110 with sinus rhythm interpreted by me Patient was found to be hypoxic on room air supplemental oxygen was applied to the patient which improved her oxygen saturation. 0745: Vital signs stable on supplemental oxygen via nasal cannula. Status post 1 DuoNeb treatment in the emergency department there is better air movement to the patient's bilateral lung rae. The patient now has diffuse expiratory wheezes bilaterally. Patient be given 1 hour DuoNeb treatment and is thought that the patient's hypoxia and respiratory distress are secondary to her underlying obstructive lung disease. 0852: Vital signs stable on supplemental oxygen. Patient is still receiving hour-long DuoNeb treatment. Patient is having increased wheezing lung rae and opening up and there is better air movement. COVID swab is still pending however labs are within normal limits with exception of a mildly elevated high- sensitivity troponin of 35.3. Labs show white blood cell count of 16. Chest x- ray reviewed by me did not show any acute infiltrate formal radiology read is pending. Patient will be admitted to the [facility] team Dr. Mckeon team notified. 0938: [facility] was contacted. 0949: [facility] and [facility] will [facility] the patient. Administered Medications Discontinued Medications Acetaminophen (Acetaminophen 325 Mg Tab) 650 mg PO NOW STA Stop: 04/04/23 08:00 Last Admin: 04/04/23 08:43 Dose: 650 mg Documented By: SHAWNEE Albuterol (Albut/Ipratrop 3mg/0.5mg Neb 3 Ml Vial) 3 ml NEB NOW STA; Protocol Stop: 04/04/23 07:22 Last Admin: 04/04/23 07:28 Dose: 3 ml Documented By: CHRISTINA Albuterol (Albut/Ipratrop 3mg/0.5mg Neb 3 Ml Vial) 12 ml NEB ONE ONE; Protocol Stop: 04/04/23 07:45 Last Admin: 04/04/23 08:00 Dose: 12 ml Documented By: JANUSZ Methylprednisolone (Methylprednisolone 125 Mg/2 Ml Vial) 125 mg IV NOW STA Stop: 04/04/23 07:22 Last Admin: 04/04/23 07:29 Dose: 125 mg Documented By: CHRISTINA Medical Decision Making Laboratory Data Attestation: I reviewed the patient's lab results. 04/04/23 07:30 04/04/23 07:30 Lab Results 04/04/23 04/04/23 Range/Units 07:30 07:36 WBC 16.00 H (4.8-10.8) K/ul RBC 4.33 (4.20-5.40) M/uL Hgb 12.5 (12.0-16.0) g/dl POC Hgb 13.6 (12.0-16.0) g/dl Hct 39.6 (37.0-47.0) % POC Hct 40 (37-47) % MCV 91.5 (80.0-100.0) fL MCH 28.9 (25.0-34.0) pg MCHC 31.6 L (32.0-36.0) g/dL RDW Std Deviation 42.0 (36.4-46.3) fL RDW Coeff of Dougie 12.5 (11.5-14.5) % Plt Count 234 (130-400) K/uL MPV 10.2 (9.4-12.4) fL Immature Gran % (Auto) 0.7 % Neut % (Auto) 84.5 % Lymph % (Auto) 6.8 % Tate % (Auto) 7.4 % Eos % (Auto) 0.2 % Baso % (Auto) 0.4 % Neut # (Auto) 13.54 H (1.40-6.50) K/uL Lymph # (Auto) 1.08 L (1.20-3.40) K/uL Tate # (Auto) 1.18 H (0.11-0.59) K/uL Eos # (Auto) 0.03 (0.00-0.50) K/uL Baso # (Auto) 0.06 (0.00-0.20) K/uL Immature Gran # (Auto) 0.11 (0.01-0.20) K/uL PT 11.0 (9.0-12.0) Seconds INR 1.0 (0.9-1.1) APTT 33.6 H (21.0-31.0) Seconds PTT Ratio 1.2 D-Dimer Cancelled VBG pH 7.27 L (7.36-7.41) VBG pCO2 67 H (38-50) mmHg VBG pO2 39 mmHg VBG HCO3 31 mmol/L VBG O2 Saturation 62.4 % VBG Base Excess 2.0 mEq/L POC Sodium 138 (135-144) mmol/L Sodium 138 (136-145) mmol/L POC Potassium 3.7 (3.3-5.0) mmol/L Potassium 3.8 (3.5-5.1) mmol/L POC Chloride 100 L (101-112) mmol/L Chloride 103 (98-107) mmol/L Carbon Dioxide 29 (21-32) mmol/L POC Total CO2 28 (24-31) mmol/L Anion Gap 6 (3-11) POC Anion Gap 15.0 L (16-25) mmol/L POC BUN 10 (7-18) mg/dl BUN 11 (6-23) mg/dl Creatinine 1.02 (0.6-1.2) mg/dl POC Creatinine 1.0 (0.6-1.3) mg/dl Est Cr Clr Drug Dosing 65.8 ml/min Est GFR ( Amer) 68.8 ml/min Est GFR (Non-Af Amer) 59.3 ml/min BUN/Creatinine Ratio 10.8 (10-20) Glucose 184 H (70-99(Fasting)) mg/dl POC Glucose (other) 190 H (70-99) mg/dl Calcium 8.5 L (8.6-10.3) mg/dl POC Ioniz Calcium Cindy 1.07 L (1.12-1.32) mmol/l Troponin I High Sens 35.3 H (0-14) pg/ml B-Natriuretic Peptide 71 (0-100) pg/ml Lipase 4 L (11-82) U/L SARS-CoV-2 (PCR) NEGATIVE (Negative) Influenza Type A (PCR) Negative (Neg) Influenza Type B (PCR) Negative (Neg) RSV (RT-PCR) Negative (Neg) Imaging Data Attestation: I personally reviewed and interpreted this imaging study as follows: My Impression: Chest x-ray negative. Airway clear. No pneumothorax. No consolidation. No cardiomegaly or cephalization.. No free air under the diaphragm. No fractures of the skeletal structures. Radiologist's Impression: Chest X-Ray 04/04/23 07:22 XR chest 1V portable CLINICAL HISTORY: Chest pain, nonspecific TECHNIQUE: Single frontal radiograph of the chest was obtained. Comparison: Comparison is made to chest radiograph to 08/18/2021 FINDINGS: No lines and tubes are seen. Calcified aortic knob is seen. The lungs are clear. No evidence of pleural effusion or pneumothorax. IMPRESSION: No acute chest disease. ACT 112: Negative or not required by law. Electronically signed by: Emanuel Ambrose M.D. 04/04/2023 9:20 AM ECG Data Attestation: I personally reviewed and interpreted this ECG as follows: Interpretation: Sinus rhythm with a rate of 115. AL QRS and QTc intervals within normal limits. No ST elevation or ST depression. There is baseline wander and artifact secondary patient's tachypnea. [facility] Narrative 0717: The patient was evaluated in room A2. A complete history and physical exam was performed Cardiac monitoring: An order was placed for continuous cardiac monitoring. The monitor shows a rate of 110 with sinus rhythm interpreted by me Patient was found to be hypoxic on room air supplemental oxygen was applied to the patient which improved her oxygen saturation. 0745: Vital signs stable on supplemental oxygen via nasal cannula. Status post 1 DuoNeb treatment in the emergency department there is better air movement to the patient's bilateral lung rae. The patient now has diffuse expiratory wheezes bilaterally. Patient be given 1 hour DuoNeb treatment and is thought that the patient's hypoxia and respiratory distress are secondary to her underlying obstructive lung disease. 0852: Vital signs stable on supplemental oxygen. Patient is still receiving hour-long DuoNeb treatment. Patient is having increased wheezing lung rae and opening up and there is better air movement. COVID swab is still pending however labs are within normal limits with exception of a mildly elevated high- sensitivity troponin of 35.3. Labs show white blood cell count of 16. Chest x- ray reviewed by me did not show any acute infiltrate formal radiology read is pending. Patient will be [facility] the [facility] team Dr. Mckeon team notified. 0938: [facility] was contacted. 0949: [facility] and he will [facility] the patient. Impression & Plan Hypoxia, COPD exacerbation Critical Care Time Critical Care Time: Yes Total Critical Care Time: 61 I have personally spent greater than 61 minutes of critical care time in the direct management of this patient. This includes bedside care, interpretation of diagnostic studies, and testing, discussion with consultants, patient, and family members, and other required patient management activities. This 61 minutes is in excess of all separately billable procedures. Discharge Plan Visit Data Chief Complaint: Shortness of Breath/Dyspnea Stated Complaint: TROUBLE BREATHING ED Provider: Deven Brown Discharge Problem: Hypoxia, COPD exacerbation Patient Disposition: Admitted As Inpatient Forms Stand Alone Forms: [facility] Prescriptions Prescriptions: No Action albuterol sulfate 90 mcg/actuation HFA aerosol inhaler 2 puff inhalation Q4H PRN (Reason: Shortness Of Breath Or Wheezing) Qty: 8.5 5RF pantoprazole [Protonix] 40 mg tablet,delayed release (DR/EC) 40 mg PO QAM Qty: 90 3RF infliximab [Remicade] 100 mg recon soln See Rx Instructions IV Q8WK Qty: 8 8RF Rx Instructions: 10 mg/kg intravenously every 8 weeks; cholecalciferol (vitamin D3) [Vitamin D3] 1,000 unit Capsule 1,000 unit PO QAM bupropion HCl 150 mg tablet extended release 24 hr 150 mg PO QAM Women's One Daily 18 mg iron-400 mcg-500 mg Ca Tablet 1 tab PO QAM trazodone 50 mg tablet 50 mg PO HS atorvastatin 40 mg tablet 40 mg PO HS ipratropium-albuterol 0.5 mg-3 mg(2.5 mg base)/3 mL solution for nebulization 3 ml inhalation QID Qty: 180 5RF gabapentin 300 mg Capsule 300 mg PO TID iron 159 mg (45 mg iron) Tablet Extended Release 159 mg PO QAM Trelegy Ellipta 100-62.5-25 mcg Blister With Device 1 inh INHALATION QAM Referrals Referrals: Mekhi Reyes MD [Primary Care Provider] -
[2023-04-04 07:39] LABS: HCO3 VBG 31 mmol/L; Oxygen Saturation VBG 62.4 %; PCO2 VBG 67 mmHg (38-50); PO2 VBG 39 mmHg; pH VBG 7.27 (7.36-7.41)
[2023-04-04] MEDS ORDERED: ALBUT/IPRATROP 3MG/0.5MG NEB 3 ML VIAL NEB ONE (07:44)
[2023-04-04 07:49] LABS: iSTAT Hemoglobin 13.6 g/dl (12.0-16.0); iSTAT Ionized Calcium 1.07 mmol/l (1.12-1.32); iSTAT Potassium 3.7 mmol/L (3.3-5.0)
[2023-04-04 07:51] LABS: Basophils # (auto) 0.06 K/uL (0.00-0.20); Basophils % (auto) 0.4 %; Eosinophils # (auto) 0.03 K/uL (0.00-0.50); Eosinophils % (auto) 0.2 %; Hematocrit (blood only) 39.6 % (37.0-47.0); Hemoglobin 12.5 g/dl (12.0-16.0); Immature Granulocytes # (auto) 0.11 K/uL (0.01-0.20); Immature Granulocytes % (auto) 0.7 %; Lymphocytes # (auto) 1.08 K/uL (1.20-3.40); Lymphocytes % (auto) 6.8 %; Mean Corpuscular Hemoglobin 28.9 pg (25.0-34.0); Mean Corpuscular Hgb Conc 31.6 g/dL (32.0-36.0); Mean Corpuscular Volume 91.5 fL (80.0-100.0); Mean Platelet Volume 10.2 fL (9.4-12.4); Monocytes # (auto) 1.18 K/uL (0.11-0.59); Monocytes % (auto) 7.4 %; Neutrophils # (auto) 13.54 K/uL (1.40-6.50); Neutrophils % (auto) 84.5 %; Platelet Count 234 K/uL (130-400); RDW Coefficient of Variation 12.5 % (11.5-14.5); Red Blood Count 4.33 M/uL (4.20-5.40)
[2023-04-04] MEDS ORDERED: ACETAMINOPHEN 325 MG TAB PO STA (07:59)
[2023-04-04 08:17] LABS: BUN Creatinine Ratio 10.8 (10-20); Calcium 8.5 mg/dl (8.6-10.3); Creatinine Clr Calc Pharmacy 65.8 ml/min; Est GFR (African American) 68.8 ml/min; Est GFR (Non-African American) 59.3 ml/min; Partial Thromboplastin Ratio 1.2; Partial Thromboplastin Time 33.6 Seconds (21.0-31.0); Potassium 3.8 mmol/L (3.5-5.1)
--- NOTE | 2023-04-04 09:22 | XRay Report ---
XR chest 1V portable CLINICAL HISTORY: Chest pain, nonspecific TECHNIQUE: Single frontal radiograph of the chest was obtained. Comparison: Comparison is made to chest radiograph to 08/18/2021 FINDINGS: No lines and tubes are seen. Calcified aortic knob is seen. The lungs are clear. No evidence of pleur al effusion or pneumothorax. IMPRESSION: No acute chest disease. ACT 112: Negative or not required by law. Electronically signed by: Emanuel Ambrose M.D. 04/04/2023 9:20 AM
[2023-04-04 09:23] LABS: Influenza A virus by PCR Negative (Neg); Influenza B virus by PCR Negative (Neg); RSV by PCR Negative (Neg); SARS CoV2 RNA(COVID-19) Ceph NEGATIVE (Negative)
[2023-04-04 10:14] LABS: Troponin I High Sensitivity 31.7 pg/ml (0-14)
--- NOTE | 2023-04-04 10:54 | History & Physical Report ---
Date of Service April 04, 2023 Assessment & Plan (1) Acute respiratory failure with hypoxia and hypercarbia: (2) COPD exacerbation: (3) Acute respiratory acidosis: Plan: This is a 63yo F with a PMH of COPD, interstitial lung disease, hypertension, history of recurrent syncope, Crohn's disease, diet-controlled type 2 diabetes and other medical problems listed below who presents from home with non- productive cough over the last few months with progressive SOB the past week found to be in acute respiratory failure 2/2 COPD exacerbation. Hypoxic at 79% on RA initially, does not require O2 at baseline Afebrile, WBC 16, HR 122, procal WNL meeting SIRs criteria - CXR without e/o opacity, UA pending, covid/flu/rsv PCR is negative, cat scratch noted and will plan to continue Bactrim Suspect WBC and HR elevated 2/2 acute respiratory distress but will obtain CTA chest for better visualization given underlying ILD, r/o PE given elevated d- dimer and sinus tach ABG revealing respiratory acidosis with pH 7.21, pCO2 75, pO281, HCO3 30 Started on bipap with improved clinical appearance, repeat ABG this evening Given 125mg IV solu-medrol and duonebs in ED Continue with 40mg IV solumedrol Q8H, duonebs QIDR, Doxycycline 100mg Q12 NPO while on bipap (4) Sinus tachycardia: Plan: Tachycardic rate in 110s during exam, initially 122 with appearance of sinus tachycardia on monitor, EKG pending H/o sinus tachycardia per chart review Given SOB and elevated d-dimer will add CTA chest to r/o PE Monitor on tele (5) Cat scratch of face: Plan: Small abrasion on face with minimal surrounding erythema, no drainage Started on 10d Bactrim course by PCP yesterday, plan to continue (6) Crohns disease: Plan: Follows with GI, Infliximab inj Q2Mo, currently at baseline (7) Depression: Plan: Chronic, stable. Continue buprioion, duloxetine (8) DM type 2 (diabetes mellitus, type 2): Plan: A1c 6.2 in Dec 2021, diet controlled Diabetic diet, repeat a1c in AM Adding SSI while admitted BSG AC HS (9) Hyperlipidemia: Plan: Chronic, stable. Continue statin (10) Chronic low back pain: Plan: Holding home tramadol, gabapentin until more alert (gabapentin dose reduced to 600mg TID given CrCl) (11) Obstructive sleep apnea syndrome: Plan: Resume CPAP HS once transitioned off of bipap DVT Ppx: SQ lovenox Code status: FULL PCP: Amy Dispo: Admitted to PCU Patient seen in collaboration with Dr. Paul. Please see addendum. History of Present Illness Chief Complaint: SOB Primary Care Provider: Mekhi Reyes MD This is a 63yo F with a PMH of COPD, interstitial lung disease, hypertension, history of recurrent syncope, Crohn's disease, diet-controlled type 2 diabetes and other medical problems listed below who presents from home with non- productive cough over the last few months with progressive SOB the past week. Some pleuritic chest pain and wheezing. + Headache and abdominal discomfort she attributes to worsening cough. Denies any recent sick contacts. Is not on oxygen at baseline. states she has seemed more sleepy and slower to verbally respond since yesterday, which is not her baseline. Denies any F/C, sore throat, congestion, CP, palpitations, N/V, dysuria, diarrhea or constipation. Former 2 ppd smoker. Has been taking all medications as prescribed including Trelegy inhaler every morning and DuoNebs routinely especially over the past week. Was seen by PCP yesterday for routine follow-up and was noted to have some respiratory issues with instruction to continue Trelegy and DuoNebs but no indication for antibiotics or steroids yesterday. Also noted to have a cat scratch abrasion on right chin with some surrounding erythema and was started on a 10-day course of Bactrim. Allergies Allergy/AdvReac Type Severity Reaction Status Date / Time adhesive tape AdvReac Severe TEARS SKIN Verified 04/04/23 09:58 Home Medications Medication Instructions Recorded Confirmed Type cholecalciferol (vitamin D3) 25 1,000 unit PO QAM 08/25/18 04/04/23 History mcg (1,000 unit) capsule (Vitamin D3) bupropion HCl 150 mg 24 hr tablet, 150 mg PO QAM 08/08/20 04/04/23 History extended release multivit-iron 18 mg-folic acid 400 1 tab PO QAM 08/08/20 04/04/23 History mcg-calcium 500 mg-minerals tablet (Women's One Daily) albuterol sulfate 90 mcg/actuation 2 puff inhalation Q4H PRN 02/12/21 04/04/23 Rx aerosol inhaler Shortness Of Breath Or Wheezing #8.5 grams atorvastatin 40 mg tablet 40 mg PO HS 03/17/21 04/04/23 History trazodone 50 mg tablet 50 mg PO HS 03/17/21 04/04/23 History ipratropium 0.5 mg-albuterol 3 mg 3 ml inhalation QID #180 mL 03/19/21 04/04/23 Rx (2.5 mg base)/3 mL nebulization soln pantoprazole 40 mg tablet,delayed 40 mg PO QAM gastritis #90 tabs 06/24/21 04/04/23 Rx release (Protonix) ferrous sulfate, dried 159 mg (45 159 mg PO QAM 07/04/22 04/04/23 History mg iron) tablet,extended release (iron ER) infliximab 100 mg intravenous See Rx Instructions IV Q8WK #8 ea 02/04/23 04/04/23 Rx solution (Remicade) celecoxib 100 mg capsule 100 mg PO DAILY 04/04/23 04/04/23 History duloxetine 60 mg capsule,delayed 60 mg PO QAM 04/04/23 04/04/23 History release fluticasone fur. 200 mcg-umeclid 1 ea inhalation QAM 04/04/23 04/04/23 History 62.5 mcg-vilant 25 mcg inhalat.powder (Trelegy Ellipta) gabapentin 800 mg tablet 800 mg PO TID 04/04/23 04/04/23 History sulfamethoxazole 800 1 tab PO BID 04/04/23 04/04/23 History mg-trimethoprim 160 mg tablet tramadol 50 mg tablet 50 mg PO BID PRN Pain 04/04/23 04/04/23 History Past Med/Surg History Medical History (Updated 04/04/23 @ 12:55 by Mary Potter PA-C) Leiomyoma of uterus History of COVID-19 diagnosed 03/17/21 @ [facility]--had difficulty breathing d/t COPD and had to hospitalized with oxygen for 1 week, pt states no lingering symptoms Crohns disease GERD (gastroesophageal reflux disease) DM type 2 (diabetes mellitus, type 2) NIDDM- DIET CONTROLLED Depression Anxiety History of migraine LALO (obstructive sleep apnea) CPAP DVT prophylaxis Asthma COPD (chronic obstructive pulmonary disease) well controlled w/ inhaler daily/prn, has not needed neb in "a while" Chronic low back pain Hyperlipidemia Hypertension Surgical History (Updated 04/04/23 @ 12:42 by Mary Potter PA-C) History of appendectomy S/P colon resection (07/04/21) Laparoscopic Assisted Right Colon Resection - Gildardo Woods MD, FACS 07/04/2021 History of esophagogastroduodenoscopy (EGD) History of tooth extraction History of tubal ligation History of D&C History of appendectomy History of lumbar surgery x 5; hardware present History of colonoscopy last 02/21/21 @ [facility] History of carpal tunnel surgery BL Family History Brother Diabetes Father , in early 60s from AMI Diabetes Myocardial infarction Mother , in her 60s; "natural" causes No problems noted. Other No family history of adverse response to anesthesia Denies family history of Inflammatory bowel disease Social History Smoking Status: Former smoker Tobacco Type: Cigarettes packs per day: 2.5; Second Hand Exposure: No; Do You Dip or Chew Tobacco: No; Hx Alcohol Use: No Hx Substance Use: No Preferred Language: Korean Communication Ability: Effective Automatic Machines Supervisor Required: No Beliefs That Will Affect Care: None marital status: Current Living Situation: Family Current Living Situation Comment: Lives with and grandson current occupational status: retired current occupation: worked at [employer] How many Children do You have: 1 other: lives in [place] Feels Safe at Home: Yes Diet: diabetic Assistive Devices: CPAP, Denture - Upper, Denture - Lower, Glasses and Nebulizer Review of Systems Review of Systems: At least ten systems reviewed and negative except as noted in the HPI. Physical Exam Physical Exam: Please see Dr. Paul's addendum for physical exam. Results & Data Results & Data Vital Signs (Past 12 Hours) Vital Signs Temp Pulse Pulse Resp BP Pulse Ox O2 Del Method 04/04/23 09:00 115 H 25 H 127/86 04/04/23 09:00 137/87 04/04/23 08:30 114 H 20 98 04/04/23 08:01 105 H 20 96 Nasal Cannula 04/04/23 08:00 107 H 23 98 04/04/23 07:39 137/84 04/04/23 07:39 114 H 21 96 04/04/23 07:30 113 H 23 99 04/04/23 07:29 115 H 04/04/23 07:25 120 H 28 H 99 04/04/23 07:19 79 L Non-rebreather 04/04/23 07:15 79 L Room Air 04/04/23 07:15 36.8 C 122 H 24 110/58 L 79 L Room Air O2 Flow Rate 04/04/23 09:00 04/04/23 09:00 04/04/23 08:30 04/04/23 08:01 5 04/04/23 08:00 04/04/23 07:39 04/04/23 07:39 04/04/23 07:30 04/04/23 07:29 04/04/23 07:25 04/04/23 07:19 15 04/04/23 07:15 04/04/23 07:15 Laboratory Results Short CBC 04/04/23 Range/Units 07:30 WBC 16.00 H (4.8-10.8) K/ul Hgb 12.5 (12.0-16.0) g/dl Hct 39.6 (37.0-47.0) % Plt Count 234 (130-400) K/uL BMP 04/04/23 07:30 Sodium 138 Potassium 3.8 Chloride 103 Carbon Dioxide 29 BUN 11 Creatinine 1.02 Glucose 184 H Calcium 8.5 L Diagnostic Findings Chest X-Ray 04/04/23 07:22 XR chest 1V portable CLINICAL HISTORY: Chest pain, nonspecific TECHNIQUE: Single frontal radiograph of the chest was obtained. Comparison: Comparison is made to chest radiograph to 08/18/2021 FINDINGS: No lines and tubes are seen. Calcified aortic knob is seen. The lungs are clear. No evidence of pleural effusion or pneumothorax. IMPRESSION: No acute chest disease. ACT 112: Negative or not required by law. Electronically signed by: Emanuel Ambrose M.D. 04/04/2023 9:20 AM ECG Additional Comments: pending Code Status & VTE Plan VTE Prophylaxis Plan VTE Prophylaxis will be ordered: Yes Supervising Physician Co-Signing Physician Notes 63-year-old female with PMH of COPD, interstitial lung disease,Asthma, LLAO on CPAP, HTN, HLD, T2DM, low back pain, Crohn's disease with complication presented to the ED with complaint of worsening shortness of breath since last 5 to 7 days affecting her activities of daily living. Patient also reports her baseline cough worsening in the last several days, no mucus. Patient reports noting wheezing. Patient attributes headache and belly pain and chest pain to coughing which are present mostly during coughing per her. Patient denies fever/sore throat/palpitation/acute changes in bowel or bladder habit. Reports feeling tired and weak. Patient was able to complete sentences but was tired, also patient was intermittently drowsy through the bedside conversation. no home O2 need per pt. Patient quit smoking 15 years ago, denies alcohol and recreational drug use. Is full code. Denies cancer or blood clot history. Patient recently had a cat scratch to her right lower jaw, started on Bactrim course since yesterday. We will continue Bactrim. Labs and imaging reviewed. Asthma/COPD exacerbation and acute hypercapnic respiratory failure: Patient wheezing on exam, ABG with hypercapnia. Scheduled DuoNebs with levalbuterol, as needed levalbuterol, Trelegy, IV Solu-Medrol 40 mg 3 times daily - wean down per clinical response, doxycycline. BiPAP. ABG in the a.m. and as needed for respiratory distress. BNP 71. Currently n.p.o. due to concern of drowsiness and BiPAP need, can resume diet when patient more awake. Leukocytosis, likely infection versus acute stress. Procalcitonin negative. Monitor labs in AM. Follow blood culture. Tachycardia: Likely secondary to acute respiratory distress, will get CTA chest to rule out PE. D-dimer elevated. Troponin elevated, flat trended, likely demand ischemia secondary to acute respiratory distress. On Exam: GENERAL: Intermittent drowsy thru bedside exam. on 4L NC O2. appears ill/sick. HEENT: No pallor, no icterus. Pupils equal, round and reactive to light. Oral mucosa moist. Rt lower jaw w/ <1cm scabbed abrasion. NECK: No JVD, no neck masses. HEART: S1 and S2 heard. Regular rate and rhythm. No murmur, no gallop. RESPIRATORY SYSTEM: Normal AP diameter. No accessory muscle use. + wheezing, b/l crackles. able to complete sentences but tired afterwards. ABDOMEN: Soft, bowel sounds present, nontender, no distention. CENTRAL NERVOUS SYSTEM: No facial droop. Speech is clear. Obeys simple commands. Moves extremities. EXTREMITIES: No edema, no erythema seen. BLE chronic skin changes noted I have seen and examined the patient and have discussed the case with the provider above. I agree with the assessment and plan as stated.
[2023-04-04 11:47] LABS: HCO3 ABG 30 mmol/L (19-24); Oxygen Saturation ABG 96.1 % (90-95); PCO2 ABG 75 mmHg (35-46); PO2 ABG 81 mmHg (80-95); pH ABG 7.21 (7.35-7.45)
[2023-04-04 11:48] LABS: Allen Test Pos (Pos)
[2023-04-04] MEDS ORDERED: POLYETHYLENE (MIRALAX) 17 GM PACK PO PRN (12:39)
[2023-04-04] MEDS ORDERED: ALBUTEROL HFA 8 GM INHALER INH PRN (12:39)
[2023-04-04] MEDS ORDERED: ONDANSETRON INJ 2 MG/ML 2 ML VIAL IV PRN (12:39)
[2023-04-04 12:48] LABS: D Dimer 820 ug/L FEU (0-500)
[2023-04-04] MEDS ORDERED: DEXTROSE 50% 50 ML SYRINGE IV PRN (13:09)
[2023-04-04] MEDS ORDERED: GLUCAGON FOR INJ 1 MG VIAL SQ PRN (13:09)
[2023-04-04] MEDS ORDERED: GLUCOSE 10 TAB/TUBE PO PRN (13:09)
[2023-04-04] MEDS ORDERED: GLUCOSE 40% GEL 15 GM TUBE PO PRN (13:09)
[2023-04-04] MEDS ORDERED: CARBOHYDRATES FOR HYPOGLYCEMIA PO PRN (13:09)
[2023-04-04] MEDS: DOXYCYCLINE HYCLATE 100 MG in DEXTROSE 5% MINI-B 100 ML IV SCH (13:34)
[2023-04-04] MEDS: ENOXAPARIN INJ 40 MG/0.4 ML SYR SQ SCH (13:34)
[2023-04-04] MEDS ORDERED: OPTIRAY 320 500ml IV ONE (14:25)
[2023-04-04] MEDS: INSULIN ASPART PER UNIT CHARGE SC SCH ×2 (16:18→21:37)
[2023-04-04] MEDS: ALBUT/IPRATROP 3MG/0.5MG NEB 3 ML VIAL NEB SCH ×3 (16:25→22:46)
[2023-04-04 16:51] LABS: Base Excess ABG -0.6 mEq/L (-9-1.8); HCO3 ABG 28 mmol/L (19-24); Oxygen Saturation ABG 95.4 % (90-95); PCO2 ABG 62 mmHg (35-46); PO2 ABG 71 mmHg (80-95); pH ABG 7.26 (7.35-7.45)
[2023-04-04 17:00] LABS: Allen Test Pos (Pos)
--- NOTE | 2023-04-04 20:30 | CT Scan Report ---
CT angio chest PE protocol CLINICAL HISTORY: eval for PE TECHNIQUE: Multidetector row helical CT of the chest was performed with angiographic protocol. Small l and sagittal reformations were obtained. Coronal and sagittal MIPS were obtained from the axial rodrigue a set and were submitted for review. Automated dose lowering techniques and/or adjustment according to patient size were utilized for this exam. CT DOSE: 637.87 mGy.cm Comparison: Comparison is made to CT chest 05/21/2013 FINDINGS: Lungs and pleura: Mild emphysema is seen. Focal groundglass opacity is seen in the right upper lobe ( series 4 image 170). Heart and pericardium: Heart size is normal. No pericardial effusion. Vessels: No evidence of pulmonary embolism. Pulmonary trunk measures 33 mm in diameter. Mediastinum and monae: Subcentimeter lymph nodes are seen. Chest wall and lower neck: Small thyroid nodules are noted which do not require follow-up by ACR mayra newsome. Abdomen: Unremarkable. Bones: Degenerative changes in the thoracic spine. IMPRESSION: 1. No evidence of pulmonary embolus. 2. New focus of groundglass opacity in the right upper lobe is nonspecific but may represent infecti ous/inflammatory process. 3. Emphysema. ACT 112: Negative or not required by law. Electronically signed by: Emanuel Ambrose M.D. 04/04/2023 8:28 PM
[2023-04-04] MEDS: methylPREDNISolone 40 MG in SYRINGE 0 ML IV SCH (21:23)
[2023-04-04] MEDS: SULFAMETHOXAZOLE/TRIMETHOPRIM DS 800/160MG TAB PO SCH (21:24)
[2023-04-04] MEDS: ATORVASTATIN 40 MG TAB PO SCH (21:24)
[2023-04-04] MEDS ORDERED: Nursing to Pharmacy Communication SCH (22:00)
[2023-04-04] MEDS: GABAPENTIN 600 MG TAB PO SCH (22:16)
[2023-04-04] MEDS ORDERED: NSS + 20MEQ KCL 20 MEQ/1,000 ML BAG IV ONE (23:45)
[2023-04-04] MEDS ORDERED: POTASSIUM CHLORIDE CRTAB 20 MEQ TABCR PO STA (23:54)
[2023-04-04] MEDS ORDERED: MAGNESIUM SULFATE / D5W 1 GM/100 ML BAG IV ONE (23:59)
[2023-04-05 00:03] LABS: Magnesium 1.9 mg/dl (1.7-2.4)
[2023-04-05] MEDS: DOXYCYCLINE HYCLATE 100 MG in DEXTROSE 5% MINI-B 100 ML IV SCH ×3 (01:23→13:12)
[2023-04-05] MEDS: IPRATROPIUM BROMIDE NEB SOLN 0.02% 2.5 ML VIAL INH SCH ×4 (01:28→19:52)
[2023-04-05] MEDS: LEVALBUTEROL 1.25 MG/3 ML NEB NEB SCH ×4 (01:28→19:52)
[2023-04-05] MEDS: ACETAMINOPHEN 325 MG TAB PO PRN ×4 (01:29→20:20)
[2023-04-05 02:00] LABS: Appearance Urine Clear (Clear); Bacteria Urine Automated Negative (Negative); Bilirubin Urine Negative (Negative); Blood Urine Negative (Negative); Color Urine Yellow; Epithelial Cell Urine Auto >30 /lpf (0-5); Glucose Urine UA Negative (Negative); Ketones Urine Negative (Negative); Leukocyte Esterase Urine Negative (Negative); Nitrite Urine Negative (Negative); Protein Urine 1+ (Negative); RBC Urine Automated 0-4 /hpf (0-4); Specific Gravity Urine > 1.045 (1.000-1.030); Urobilinogen Urine Negative (Negative)
[2023-04-05] MEDS ORDERED: DOXYCYCLINE HYCLATE 100 MG in DEXTROSE 5% MINI-B 100 ML IV SCH (02:00)
[2023-04-05] MEDS: traMADol HCL 50 MG TABLET PO PRN ×2 (02:56→20:31)
[2023-04-05] MEDS ORDERED: XOPENEX/ATROVENT 1.25mg/0.5MG NEB COMBO NEB SCH (03:00)
[2023-04-05] MEDS: methylPREDNISolone 40 MG in SYRINGE 0 ML IV SCH ×3 (04:41→20:22)
[2023-04-05 07:57] LABS: Hematocrit (blood only) 38.7 % (37.0-47.0); Mean Corpuscular Hemoglobin 28.7 pg (25.0-34.0); Mean Corpuscular Volume 92.6 fL (80.0-100.0); Mean Platelet Volume 10.2 fL (9.4-12.4); Platelet Count 267 K/uL (130-400); RDW Coefficient of Variation 12.5 % (11.5-14.5); RDW Standard Deviation 42.6 fL (36.4-46.3); Red Blood Count 4.18 M/uL (4.20-5.40); White Blood Count 18.05 K/ul (4.8-10.8)
[2023-04-05] MEDS: SULFAMETHOXAZOLE/TRIMETHOPRIM DS 800/160MG TAB PO SCH ×2 (08:06→20:22)
[2023-04-05] MEDS: GABAPENTIN 600 MG TAB PO SCH ×3 (08:06→20:22)
[2023-04-05] MEDS: MULTIVITAMIN TAB PO SCH (08:07)
[2023-04-05] MEDS: PANTOprazole 40 MG TAB PO SCH (08:07)
[2023-04-05] MEDS: CHOLECALCIFEROL 1,000 UNITS 25 MCG TAB PO SCH (08:07)
[2023-04-05] MEDS: FERROUS SULFATE 325 MG TAB PO SCH (08:08)
[2023-04-05] MEDS: DULoxetine HCL 60 MG CAP PO SCH (08:08)
[2023-04-05] MEDS: buPROPion XL 150 MG TABCR PO SCH (08:08)
[2023-04-05] MEDS: FLUTICASONE FUROATE 200MCG 14 PUFFS/INHALER INH SCH (08:09)
[2023-04-05] MEDS: UMECLIDINIUM/VILANTEROL 62.5/25MCG 7 PUFFS/INHALER INH SCH (08:10)
[2023-04-05] MEDS: INSULIN ASPART PER UNIT CHARGE SC SCH ×4 (08:18→20:22)
[2023-04-05 08:25] LABS: BUN Creatinine Ratio 17.9 (10-20); Calcium 8.8 mg/dl (8.6-10.3); Creatinine Clr Calc Pharmacy 69.4 ml/min; Est GFR (African American) 74.9 ml/min; Est GFR (Non-African American) 64.6 ml/min; Potassium 4.6 mmol/L (3.5-5.1)
[2023-04-05] MEDS ORDERED: NON-FORMULARY MEDICATION (Fluticasone-Umeclidin-Vilanter [Trelegy Ellipta] 200-62.5-25 mcg INH SCH (09:00)
[2023-04-05 09:31] LABS: Estimated Average Glucose 137 mg/dl; Hemoglobin A1C 6.4 % (4.5-5.6)
[2023-04-05] MEDS: CEFEPIME 2,000 MG in SYRINGE 0 ML IV SCH ×2 (09:32→17:07)
[2023-04-05] MEDS: ADVANCED PROBIOTIC 1250 MG CAPSULE PO SCH (09:32)
[2023-04-05 11:10] LABS: Base Excess ABG 2.1 mEq/L (-9-1.8); HCO3 ABG 28 mmol/L (19-24); Oxygen Saturation ABG 96.3 % (90-95); PCO2 ABG 50 mmHg (35-46); PO2 ABG 75 mmHg (80-95); pH ABG 7.36 (7.35-7.45)
[2023-04-05 11:11] LABS: Allen Test Pos (Pos)
[2023-04-05] MEDS: BUDESONIDE 0.5 MG/2 ML VIAL (PULMICORT) NEB SCH ×2 (12:19→19:52)
[2023-04-05] MEDS: SODIUM CHLOR 7% 4 ML NEB NEB SCH ×2 (12:19→19:52)
[2023-04-05] MEDS: ENOXAPARIN INJ 40 MG/0.4 ML SYR SQ SCH (13:11)
--- NOTE | 2023-04-05 14:45 | Hospitalist Progress Note ---
Date of Service April 05, 2023 Assessment & Plan (1) Acute respiratory failure with hypoxia and hypercarbia: (2) COPD exacerbation: (3) Acute respiratory acidosis: Plan: RUL Pneumonia per admitting service notes: This is a 63yo F with a PMH of COPD, interstitial lung disease, hypertension, history of recurrent syncope, Crohn's disease, diet-controlled type 2 diabetes and other medical problems listed below who presents from home with non- productive cough over the last few months with progressive SOB the past week found to be in acute respiratory failure 2/2 COPD exacerbation. Hypoxic at 79% on RA initially, does not require O2 at baseline Afebrile, WBC 16, HR 122, procal WNL meeting SIRs criteria - CXR without e/o opacity, UA pending, covid/flu/rsv PCR is negative, cat scratch noted and will plan to continue Bactrim Suspect WBC and HR elevated 2/2 acute respiratory distress but will obtain CTA chest for better visualization given underlying ILD, r/o PE given elevated d- dimer and sinus tach ABG revealing respiratory acidosis with pH 7.21, pCO2 75, pO281, HCO3 30 Started on bipap with improved clinical appearance, repeat ABG this evening Given 125mg IV solu-medrol and duonebs in ED Continue with 40mg IV solumedrol Q8H, duonebs QIDR, Doxycycline 100mg Q12 NPO while on bipap 04/05 add Cefepime for pseudomonas coverage add Pulmicort BID add Mucinex, IS, FV continue Solumedrol 40mg q8h continue Nebs QID obtain sputum cx if with no improvement, will consult Pulm (4) Cat scratch of face: Plan: Small abrasion on face with minimal surrounding erythema, no drainage Started on 10d Bactrim course by PCP yesterday, plan to continue (5) Crohns disease: Plan: Follows with GI, Infliximab inj Q2Mo, currently at baseline (6) Depression: Plan: Chronic, stable. Continue buprioion, duloxetine (7) DM type 2 (diabetes mellitus, type 2): Plan: A1c 6.2 in Dec 2021, diet controlled Diabetic diet, repeat a1c in AM Adding SSI while admitted BSG AC HS (8) Hyperlipidemia: Plan: Chronic, stable. Continue statin (9) Chronic low back pain: Plan: Holding home tramadol, gabapentin until more alert (gabapentin dose reduced to 600mg TID given CrCl) (10) Obstructive sleep apnea syndrome: Plan: Resume CPAP HS once transitioned off of bipap DVT Ppx: SQ lovenox Code status: FULL PCP: Amy Dispo: anticipate d/c home when medically stable Admission and Anticipated Discharge Date Admission Date: April 04, 2023 Subjective ff up for COPD exacerbation, etc seen resting in bed, comfortable states she feels about the same as yesterday still has dyspnea with exertion still has cough no chest pain, palpitations, dizziness no fever/chills Review of Systems Review of Systems: all noted and negative except for above Physical Exam Physical Exam: General- oriented x 3, not in distress, speaks in sentences with no effort or accessory muscle use Eyes- anicteric Neck- no JVD Lungs- mild scattered wheeze bilaterally Heart- normal rate, regular rhythm; no murmurs Abdomen- normal bowel sounds, nondistended, soft, no tenderness Extremities- no pretibial edema, no calf tenderness Neuro- alert, oriented x 3; no gross focal neurologic deficits Skin- warm & dry Results & Data Results & Data Vital Signs (Past 12 Hours) Vital Signs Temp Pulse Pulse Resp BP Pulse Ox O2 Del Method 04/05/23 12:19 120 H 17 92 Nasal Cannula 04/05/23 11:20 36.7 C 116 H 15 114/62 92 Nasal Cannula 04/05/23 08:00 113 H 04/05/23 08:00 Nasal Cannula 04/05/23 07:31 36.7 C 119 H 18 129/80 94 Nasal Cannula 04/05/23 07:05 17 Nasal Cannula 04/05/23 03:00 36.5 C 107 H 18 120/73 92 Nasal Cannula O2 Flow Rate 04/05/23 12:19 4 04/05/23 11:20 4 04/05/23 08:00 04/05/23 08:00 4 04/05/23 07:31 4 04/05/23 07:05 4 04/05/23 03:00 all noted and reviewed including below
--- NOTE | 2023-04-05 18:10 | Electrocardiogram Report ---
Test Reason : Blood Pressure : / mmHG Vent. Rate : 115 BPM Atrial Rate : 115 BPM P-R Int : 136 ms QRS Dur : 080 ms QT Int : 360 ms P-R-T Axes : 079 071 067 degrees QTc Int : 498 ms Poor data quality, interpretation may be adversely affected Sinus tachycardia Otherwise normal ECG When compared with ECG of 17-MAR-2021 10:28, No significant change was found Confirmed by Mango Mo ([id number]) on 04/05/2023 6:10:14 PM Referred By: REFERRED SELF Confirmed By:Mango Mo
--- NOTE | 2023-04-05 19:16 | Electrocardiogram Report ---
Test Reason : Blood Pressure : / mmHG Vent. Rate : 106 BPM Atrial Rate : 106 BPM P-R Int : 144 ms QRS Dur : 082 ms QT Int : 346 ms P-R-T Axes : 074 059 064 degrees QTc Int : 459 ms Sinus tachycardia with occasional Premature ventricular complexes Otherwise normal ECG When compared with ECG of 04-APR-2023 07:27, (unconfirmed) Premature ventricular complexes are now Present Confirmed by Mango Mo ([id number]) on 04/05/2023 7:16:06 PM Referred By: REFERRED SELF Confirmed By:Mango Mo
[2023-04-05] MEDS: ATORVASTATIN 40 MG TAB PO SCH (20:22)
[2023-04-05] MEDS: traZODone HCL 50 MG TAB PO SCH (21:05)
[2023-04-06] MEDS: IPRATROPIUM BROMIDE NEB SOLN 0.02% 2.5 ML VIAL INH SCH ×4 (01:05→19:19)
[2023-04-06] MEDS: LEVALBUTEROL 1.25 MG/3 ML NEB NEB SCH ×4 (01:05→19:19)
[2023-04-06] MEDS: DOXYCYCLINE HYCLATE 100 MG in DEXTROSE 5% MINI-B 100 ML IV SCH (01:41)
[2023-04-06] MEDS: CEFEPIME 2,000 MG in SYRINGE 0 ML IV SCH ×2 (01:41→08:32)
[2023-04-06] MEDS: oxyCODONE HCL IR 5 MG TAB (IMMEDIATE RELEASE) PO PRN ×2 (01:48→20:22)
[2023-04-06] MEDS: methylPREDNISolone 40 MG in SYRINGE 0 ML IV SCH ×2 (04:19→17:15)
[2023-04-06] MEDS: BUDESONIDE 0.5 MG/2 ML VIAL (PULMICORT) NEB SCH ×2 (06:58→19:19)
[2023-04-06] MEDS: SODIUM CHLOR 7% 4 ML NEB NEB SCH ×2 (06:58→19:19)
[2023-04-06 07:25] LABS: Hematocrit (blood only) 36.7 % (37.0-47.0); Hemoglobin 11.3 g/dl (12.0-16.0); Mean Corpuscular Hemoglobin 28.8 pg (25.0-34.0); Mean Corpuscular Hgb Conc 30.8 g/dL (32.0-36.0); Mean Corpuscular Volume 93.6 fL (80.0-100.0); Mean Platelet Volume 10.1 fL (9.4-12.4); Platelet Count 263 K/uL (130-400); RDW Coefficient of Variation 12.7 % (11.5-14.5); RDW Standard Deviation 43.7 fL (36.4-46.3); Red Blood Count 3.92 M/uL (4.20-5.40); White Blood Count 15.33 K/ul (4.8-10.8)
[2023-04-06 07:44] LABS: BUN Creatinine Ratio 22.3 (10-20); Calcium 8.8 mg/dl (8.6-10.3); Creatinine Clr Calc Pharmacy 55.2 ml/min; Est GFR (African American) 55.9 ml/min; Est GFR (Non-African American) 48.3 ml/min; Potassium 5.2 mmol/L (3.5-5.1)
[2023-04-06] MEDS: ACETAMINOPHEN 325 MG TAB PO PRN (08:30)
[2023-04-06] MEDS: INSULIN ASPART PER UNIT CHARGE SC SCH ×4 (08:30→20:28)
[2023-04-06] MEDS: FLUTICASONE FUROATE 200MCG 14 PUFFS/INHALER INH SCH (08:31)
[2023-04-06] MEDS: GABAPENTIN 600 MG TAB PO SCH ×3 (08:31→20:24)
[2023-04-06] MEDS: UMECLIDINIUM/VILANTEROL 62.5/25MCG 7 PUFFS/INHALER INH SCH (08:31)
[2023-04-06] MEDS: buPROPion XL 150 MG TABCR PO SCH (08:32)
[2023-04-06] MEDS: DULoxetine HCL 60 MG CAP PO SCH (08:32)
[2023-04-06] MEDS: SULFAMETHOXAZOLE/TRIMETHOPRIM DS 800/160MG TAB PO SCH ×2 (08:32→20:24)
[2023-04-06] MEDS: ADVANCED PROBIOTIC 1250 MG CAPSULE PO SCH (08:32)
[2023-04-06] MEDS: FERROUS SULFATE 325 MG TAB PO SCH (08:32)
[2023-04-06] MEDS: MULTIVITAMIN TAB PO SCH (08:32)
[2023-04-06] MEDS: PANTOprazole 40 MG TAB PO SCH ×2 (08:32→20:23)
[2023-04-06] MEDS: CHOLECALCIFEROL 1,000 UNITS 25 MCG TAB PO SCH (08:32)
--- NOTE | 2023-04-06 11:43 | Pulmonary Consultation ---
Date of Consultation April 06, 2023 Assessment & Plan (1) Acute asthma exacerbation: Agree with nebulized Pulmicort twice daily, ICS/LABA and methylprednisone. Transition to p.o. prednisone starting tomorrow and taper over 2 weeks. Will need outpatient pulmonary follow-up. Office contacted to have follow up with primary saddle stitcher. IgE ordered and Aspergillus IgE ordered as well to evaluate for persistent Th2 mediated disease. She may be a candidate for a biologic such as Xolair, Fasenra, Tezspire, etc on an outpatient basis. Asthma severity: severe Asthma persistence: persistent Qualified Code(s): J45.51 - Severe persistent asthma with (acute) exacerbation (2) LALO (obstructive sleep apnea): to bring in the patient's home CPAP device. Recommend outpatient sleep medicine follow-up. (3) Elevated IgE level: May be a candidate for Biologics as noted above. (4) Former smoker: Out of the window for low-dose lung cancer screening as she quit smoking over 18 years ago. However, do recommend a repeat CT without contrast in 3 months to follow-up on the groundglass opacity noted near the fissure on the right upper lobe. (5) GERD (gastroesophageal reflux disease): Patient notes worsening GERD symptoms. Will increase Protonix to 40 mg twice daily. She notes that she had severe GERD and vomiting earlier today after trying to eat her lunch. Esophagitis presence: esophagitis presence not specified Qualified Code(s): K21.9 - Gastro-esophageal reflux disease without esophagitis Plan We will continue to follow. Thank you. History of Present Illness Reason for Consultation: Acute exacerbation of COPD Attending Physician: Jp Russell MD History of Present Illness 63-year-old female with a past medical history of COPD, LALO, depression, hypertension and prior tobacco abuse who presented to the hospital for shortness of breath. She follows with Dr. Cervantes as an outpatient and last saw him 09/12/2020. Patient has been complaining of nonproductive cough and progressive shortness of breath over the past week. She does endorse pleurisy. She has abdominal discomfort and headaches. She is chronically on Trelegy and as needed DuoNebs. Patient relates that she has had roughly a month-long asthma flare and has been on possible courses of steroids this year. She has 1 cat at home. She denies any changes in her environment otherwise. She quit smoking about 18 years ago. She relates shortness of breath even when using her oxygen walking several feet. She does not feel that she is back to her baseline. No PFTs available for review. Notably she has a very high IgE level from 2018 which was 1242. No significant eosinophilia noted on admission labs. Chest CT 04/04/23 revealed a small groundglass opacity in the right upper lobe along the fissure and an scattered cystic findings. Mild emphysema. The radiology interpretation is noted. She is currently receiving Xopenex every 6 hours, budesonide nebulized twice daily, hypertonic saline twice daily, Anoro Ellipta, methylprednisone 40 mg every 12 hours, doxycycline and Rocephin. Limited viral panel on admission was negative for COVID-19, influenza and RSV. Allergies Allergy/AdvReac Type Severity Reaction Status Date / Time adhesive tape AdvReac Severe TEARS SKIN Verified 04/04/23 09:58 Home Medications Medication Instructions Recorded Confirmed Type cholecalciferol (vitamin D3) 25 1,000 unit PO QAM 08/25/18 04/04/23 History mcg (1,000 unit) capsule (Vitamin D3) bupropion HCl 150 mg 24 hr tablet, 150 mg PO QAM 08/08/20 04/04/23 History extended release multivit-iron 18 mg-folic acid 400 1 tab PO QAM 08/08/20 04/04/23 History mcg-calcium 500 mg-minerals tablet (Women's One Daily) albuterol sulfate 90 mcg/actuation 2 puff inhalation Q4H PRN 02/12/21 04/04/23 Rx aerosol inhaler Shortness Of Breath Or Wheezing #8.5 grams atorvastatin 40 mg tablet 40 mg PO HS 03/17/21 04/04/23 History trazodone 50 mg tablet 50 mg PO HS 03/17/21 04/04/23 History ipratropium 0.5 mg-albuterol 3 mg 3 ml inhalation QID #180 mL 03/19/21 04/04/23 Rx (2.5 mg base)/3 mL nebulization soln pantoprazole 40 mg tablet,delayed 40 mg PO QAM gastritis #90 tabs 06/24/21 04/04/23 Rx release (Protonix) ferrous sulfate, dried 159 mg (45 159 mg PO QAM 07/04/22 04/04/23 History mg iron) tablet,extended release (iron ER) infliximab 100 mg intravenous See Rx Instructions IV Q8WK #8 ea 02/04/23 04/04/23 Rx solution (Remicade) celecoxib 100 mg capsule 100 mg PO DAILY 04/04/23 04/04/23 History duloxetine 60 mg capsule,delayed 60 mg PO QAM 04/04/23 04/04/23 History release fluticasone fur. 200 mcg-umeclid 1 ea inhalation QAM 04/04/23 04/04/23 History 62.5 mcg-vilant 25 mcg inhalat.powder (Trelegy Ellipta) gabapentin 800 mg tablet 800 mg PO TID 04/04/23 04/04/23 History sulfamethoxazole 800 1 tab PO BID 04/04/23 04/04/23 History mg-trimethoprim 160 mg tablet tramadol 50 mg tablet 50 mg PO BID PRN Pain 04/04/23 04/04/23 History Patient History Medical History (Updated 04/06/23 @ 12:27 by Edgar Jordan MD) Elevated IgE level Acute asthma exacerbation Leiomyoma of uterus History of COVID-19 diagnosed 03/17/21 @ [facility]--had difficulty breathing d/t COPD and had to hospitalized with oxygen for 1 week, pt states no lingering symptoms Crohns disease GERD (gastroesophageal reflux disease) DM type 2 (diabetes mellitus, type 2) NIDDM- DIET CONTROLLED Depression Anxiety History of migraine LALO (obstructive sleep apnea) CPAP DVT prophylaxis Asthma COPD (chronic obstructive pulmonary disease) well controlled w/ inhaler daily/prn, has not needed neb in "a while" Chronic low back pain Hyperlipidemia Hypertension Surgical History (Updated 04/04/23 @ 12:42 by Mary Potter PA-C) History of appendectomy S/P colon resection (07/04/21) Laparoscopic Assisted Right Colon Resection - Gildardo Woods MD, FACS 07/04/2021 History of esophagogastroduodenoscopy (EGD) History of tooth extraction History of tubal ligation History of D&C History of appendectomy History of lumbar surgery x 5; hardware present History of colonoscopy last 02/21/21 @ [facility] History of carpal tunnel surgery BL Family History Brother Diabetes Father , in early 60s from AMI Diabetes Myocardial infarction Mother , in her 60s; "natural" causes No problems noted. Other No family history of adverse response to anesthesia Denies family history of Inflammatory bowel disease Social History Smoking Status: Never smoker Tobacco Type: Cigarettes packs per day: 2.5; Second Hand Exposure: No; Do You Dip or Chew Tobacco: No; Hx Alcohol Use: No Hx Substance Use: No Preferred Language: Yoruba Communication Ability: Effective Ruby Engineer Required: No Beliefs That Will Affect Care: None marital status: Current Living Situation: Spouse Current Living Situation Comment: Lives with and grandson current occupational status: retired current occupation: worked at [employer] How many Children do You have: 1 other: lives in [place] Feels Safe at Home: Yes Safety Concerns: Feels Safe At This Time Diet: diabetic Assistive Devices: CPAP and Nebulizer Review of Systems Review of Systems: All systems reviewed & are unremarkable except as noted in HPI & below Physical Exam Physical Exam: Constitutional: Patient appears to be of their stated age. Patient is in no apparent distress. Patient is well-developed. Eyes: Pupils are equal round and reactive to light. Conjunctivae are normal. Anicteric sclera. Ears nose, mouth and throat: Mallampati class 2. Normal posterior oropharynx. Uvula is midline. Neck: Trachea is midline. Visual inspection is normal. Respiratory: Diffuse faint expiratory wheeze. No increased work of breathing. Cardiovascular: Regular rate and rhythm. No murmurs. No edema. Gastrointestinal: Normal bowel sounds, soft, nontender and nondistended. No hepatosplenomegaly noted. Musculoskeletal: No cyanosis. Patient is able to move all extremities. Strength is 5 out of 5 in the upper and lower extremities. Skin: No rashes, warm dry and intact. Neurologic: No obvious focal neurological deficits seen. Psychiatric: Alert and oriented x3 with a euthymic affect. Results & Data Results & Data Vital Signs (Past 12 Hours) Vital Signs Temp Pulse Pulse Pulse Resp BP Pulse Ox 04/06/23 11:27 36.7 C 107 H 18 119/75 93 04/06/23 08:00 119 H 04/06/23 08:00 04/06/23 07:53 115/77 04/06/23 07:52 36.7 C 119 H 18 115/77 99 04/06/23 07:00 123 H 18 92 04/06/23 02:30 36.5 C 118 H 20 111/57 L 95 04/06/23 01:06 119 H 18 94 O2 Del Method O2 Flow Rate 04/06/23 11:27 Nasal Cannula 4 04/06/23 08:00 04/06/23 08:00 Nasal Cannula 4 04/06/23 07:53 04/06/23 07:52 Nasal Cannula 4 04/06/23 07:00 Nasal Cannula 4 04/06/23 02:30 Nasal Cannula 4 04/06/23 01:06 Nasal Cannula 4 PG Care Time/CCT Total # of Minutes Spent Total Time Spent with Patient: Total time spent is greater than 50% in coordination of care (as documented) at patient's floor/unit and/or counseling patient: Coding Level of Care Code 48179 INT INP/OBS CARE MIN Diagnoses Severe persistent asthma with acute exacerbation J45.51 Asthma severity: severe Asthma persistence: persistent LALO (obstructive sleep apnea) G47.33 Elevated IgE level R76.8 Former smoker Z87.891 Gastroesophageal reflux disease, unspecified whether esophagitis present K21.9 Esophagitis presence: esophagitis presence not specified
--- NOTE | 2023-04-06 12:00 | Hospitalist Progress Note ---
Date of Service April 06, 2023 Assessment & Plan (1) Acute respiratory failure with hypoxia and hypercarbia: (2) COPD exacerbation: (3) Acute respiratory acidosis: Plan: RUL Pneumonia per admitting service notes: This is a 63yo F with a PMH of COPD, interstitial lung disease, hypertension, history of recurrent syncope, Crohn's disease, diet-controlled type 2 diabetes and other medical problems listed below who presents from home with non- productive cough over the last few months with progressive SOB the past week found to be in acute respiratory failure 2/2 COPD exacerbation. Hypoxic at 79% on RA initially, does not require O2 at baseline Afebrile, WBC 16, HR 122, procal WNL meeting SIRs criteria - CXR without e/o opacity, UA pending, covid/flu/rsv PCR is negative, cat scratch noted and will plan to continue Bactrim Suspect WBC and HR elevated 2/2 acute respiratory distress but will obtain CTA chest for better visualization given underlying ILD, r/o PE given elevated d- dimer and sinus tach ABG revealing respiratory acidosis with pH 7.21, pCO2 75, pO281, HCO3 30 Started on bipap with improved clinical appearance, repeat ABG this evening Given 125mg IV solu-medrol and duonebs in ED Continue with 40mg IV solumedrol Q8H, duonebs QIDR, Doxycycline 100mg Q12 NPO while on bipap 04/05 add Cefepime for pseudomonas coverage add Pulmicort BID add Mucinex, IS, FV continue Solumedrol 40mg q8h continue Nebs QID obtain sputum cx if with no improvement, will consult Pulm 04/06 wheezing improving still on 4 L, wean off accordingly decrease Solumedrol to BID continue present regimen Pulm consulted (4) Cat scratch of face: Plan: Small abrasion on face with minimal surrounding erythema, no drainage Started on 10d Bactrim course by PCP yesterday, plan to continue (5) Crohns disease: Plan: Follows with GI, Infliximab inj Q2Mo, currently at baseline (6) Depression: Plan: Chronic, stable. Continue buprioion, duloxetine (7) DM type 2 (diabetes mellitus, type 2): Plan: A1c 6.2 in Dec 2021, diet controlled Diabetic diet, repeat a1c in AM Adding SSI while admitted BSG AC HS (8) Hyperlipidemia: Plan: Chronic, stable. Continue statin (9) Chronic low back pain: Plan: Holding home tramadol, gabapentin until more alert (gabapentin dose reduced to 600mg TID given CrCl) (10) Obstructive sleep apnea syndrome: Plan: Resume CPAP HS once transitioned off of bipap DVT Ppx: SQ lovenox Code status: FULL PCP: Amy Dispo: anticipate d/c home when medically stable Admission and Anticipated Discharge Date Admission Date: April 04, 2023 Subjective ff up for COPD exacerbation, Pneumonia, etc seen resting in bed, comfortable feels better today still on 4 L NC states dyspnea is better , but still has dyspnea on exertion able to expectorate more phlegm no other new symptoms Review of Systems Review of Systems: all noted and negative except for above Physical Exam Physical Exam: General- oriented x 3, not in distress, speaks in sentences with no effort or accessory muscle use Eyes- anicteric Neck- no JVD Lungs- very faint wheeze at the bases Heart- normal rate, regular rhythm; no murmurs Abdomen- normal bowel sounds, nondistended, soft, no tenderness Extremities- no pretibial edema, no calf tenderness Neuro- alert, oriented x 3; no gross focal neurologic deficits Skin- warm & dry Results & Data Results & Data Vital Signs (Past 12 Hours) Vital Signs Temp Pulse Pulse Pulse Resp BP Pulse Ox 04/06/23 11:27 36.7 C 107 H 18 119/75 93 04/06/23 08:00 119 H 04/06/23 08:00 04/06/23 07:53 115/77 04/06/23 07:52 36.7 C 119 H 18 115/77 99 04/06/23 07:00 123 H 18 92 04/06/23 02:30 36.5 C 118 H 20 111/57 L 95 04/06/23 01:06 119 H 18 94 O2 Del Method O2 Flow Rate 04/06/23 11:27 Nasal Cannula 4 04/06/23 08:00 04/06/23 08:00 Nasal Cannula 4 04/06/23 07:53 04/06/23 07:52 Nasal Cannula 4 04/06/23 07:00 Nasal Cannula 4 04/06/23 02:30 Nasal Cannula 4 04/06/23 01:06 Nasal Cannula 4 all noted and reviewed including below
[2023-04-06] MEDS: ENOXAPARIN INJ 40 MG/0.4 ML SYR SQ SCH (13:27)
[2023-04-06] MEDS: cefTRIAXone SODIUM 2,000 MG in DEXTROSE 5 % MINI-B 50 ML IV SCH (17:02)
[2023-04-06] MEDS: traZODone HCL 50 MG TAB PO SCH (20:23)
[2023-04-06] MEDS: DOXYCYCLINE HYCLATE 100 MG CAP PO SCH (20:24)
[2023-04-06] MEDS: ATORVASTATIN 40 MG TAB PO SCH (20:24)
[2023-04-07] MEDS: LEVALBUTEROL 1.25 MG/3 ML NEB NEB SCH ×4 (00:15→19:12)
[2023-04-07] MEDS: IPRATROPIUM BROMIDE NEB SOLN 0.02% 2.5 ML VIAL INH SCH ×4 (00:15→19:12)
[2023-04-07] MEDS: methylPREDNISolone 40 MG in SYRINGE 0 ML IV SCH (03:13)
[2023-04-07] MEDS: SODIUM CHLOR 7% 4 ML NEB NEB SCH ×2 (07:02→19:12)
[2023-04-07] MEDS: BUDESONIDE 0.5 MG/2 ML VIAL (PULMICORT) NEB SCH ×2 (07:02→19:12)
[2023-04-07] MEDS: GABAPENTIN 600 MG TAB PO SCH ×3 (08:00→21:24)
[2023-04-07] MEDS: SULFAMETHOXAZOLE/TRIMETHOPRIM DS 800/160MG TAB PO SCH ×2 (08:00→21:24)
[2023-04-07] MEDS: FERROUS SULFATE 325 MG TAB PO SCH (08:00)
[2023-04-07] MEDS: ADVANCED PROBIOTIC 1250 MG CAPSULE PO SCH (08:01)
[2023-04-07] MEDS: DULoxetine HCL 60 MG CAP PO SCH (08:01)
[2023-04-07] MEDS: buPROPion XL 150 MG TABCR PO SCH (08:01)
[2023-04-07] MEDS: MULTIVITAMIN TAB PO SCH (08:01)
[2023-04-07] MEDS: CHOLECALCIFEROL 1,000 UNITS 25 MCG TAB PO SCH (08:01)
[2023-04-07] MEDS: DOXYCYCLINE HYCLATE 100 MG CAP PO SCH ×2 (08:02→21:24)
[2023-04-07] MEDS: FLUTICASONE FUROATE 200MCG 14 PUFFS/INHALER INH SCH (08:03)
[2023-04-07] MEDS: UMECLIDINIUM/VILANTEROL 62.5/25MCG 7 PUFFS/INHALER INH SCH (08:03)
[2023-04-07] MEDS: INSULIN ASPART PER UNIT CHARGE SC SCH ×4 (08:10→20:29)
--- NOTE | 2023-04-07 10:46 | Pulmonology Progress Note ---
Date of Service April 07, 2023 Assessment & Plan (1) Acute asthma exacerbation: Plan: Agree with nebulized Pulmicort twice daily, ICS/LABA and methylprednisone. Transition to p.o. prednisone and taper over 2 weeks. Will need outpatient pulmonary follow-up. Office contacted to have follow up with primary slurry tank tender. IgE ordered and Aspergillus IgE ordered as well to evaluate for persistent Th2 mediated disease. She may be a candidate for a biologic such as Xolair, Fasenra, Tezspire, etc on an outpatient basis. Would benefit from outpatient pulmonary PFTs and possible pulmonary rehab. Asthma severity: severe Asthma persistence: persistent Qualified Code(s): J45.51 - Severe persistent asthma with (acute) exacerbation (2) LALO (obstructive sleep apnea): Plan: to bring in the patient's home CPAP device. Recommend outpatient sleep medicine follow-up given hypercapnia on admission. May need transition to BIPAP or AVAPS. (3) Elevated IgE level: Plan: May be a candidate for Biologics as noted above. (4) Former smoker: Plan: Out of the window for low-dose lung cancer screening as she quit smoking over 18 years ago. However, do recommend a repeat CT without contrast in 3 months to follow-up on the groundglass opacity noted near the fissure on the right upper lobe. (5) GERD (gastroesophageal reflux disease): Plan: Patient notes worsening GERD symptoms. Continue Protonix to 40 mg twice daily. Esophagitis presence: esophagitis presence not specified Qualified Code(s): K21.9 - Gastro-esophageal reflux disease without esophagitis (6) Hypoxia: Plan: Continue to wean O2 to maintain sats above 89%. Complete two-step prior to hospital discharge. Plan No further recommendations at this time. Pulmonary service available if questions arise and we would be happy to assist. Thank you for the consultation. Admission and Anticipated Discharge Date Admission Date: April 04, 2023 Subjective Patient continues with shortness of breath. She is eager to get out of bed and walk. She would like to take her oxygen off but she continues to have occasional desaturations to the high 80s even on 2 L of supplemental oxygen. She denies any chest pain. She does endorse mild tightness. She has occasional cough. She feels little better since hospital admission. Review of Systems Review of Systems: All systems reviewed & are unremarkable except as noted in HPI & below Physical Exam Physical Exam: Constitutional: Patient appears to be of their stated age. Patient is in no apparent distress. Patient is well-developed. Eyes: Pupils are equal round and reactive to light. Conjunctivae are normal. Anicteric sclera. Ears nose, mouth and throat: Mallampati class 2. Normal posterior oropharynx. Uvula is midline. Neck: Trachea is midline. Visual inspection is normal. Respiratory: Diffuse faint expiratory wheeze. No increased work of breathing. Cardiovascular: Regular rate and rhythm. No murmurs. No edema. Gastrointestinal: Normal bowel sounds, soft, nontender and nondistended. No hepatosplenomegaly noted. Musculoskeletal: No cyanosis. Patient is able to move all extremities. Strength is 5 out of 5 in the upper and lower extremities. Skin: No rashes, warm dry and intact. Neurologic: No obvious focal neurological deficits seen. Psychiatric: Alert and oriented x3 with a euthymic affect. Results & Data Results & Data Vital Signs (Past 12 Hours) Vital Signs Temp Pulse Pulse Pulse Resp BP Pulse Ox 04/07/23 10:08 04/07/23 07:15 119 H 20 94 04/07/23 07:08 36.5 C 122 H 21 123/77 92 04/07/23 05:58 115 H 04/07/23 03:00 36.6 C 114 H 18 117/72 91 04/07/23 00:16 115 H 15 93 04/06/23 23:00 36.8 C 115 H 16 116/73 93 O2 Del Method O2 Flow Rate 04/07/23 10:08 Nasal Cannula 04/07/23 07:15 Nasal Cannula 2 04/07/23 07:08 Nasal Cannula 2 04/07/23 05:58 04/07/23 03:00 Nasal Cannula 04/07/23 00:16 CPAP 3 04/06/23 23:00 CPAP PG Care Time/CCT Total # of Minutes Spent Total Time Spent with Patient: Total time spent is greater than 50% in coordination of care (as documented) at patient's floor/unit and/or counseling patient: Coding Level of Care Code 92553 SUB INP/OBS CARE 2/35MIN Diagnoses Severe persistent asthma with acute exacerbation J45.51 Asthma severity: severe Asthma persistence: persistent LALO (obstructive sleep apnea) G47.33 Elevated IgE level R76.8 Former smoker Z87.891 Gastroesophageal reflux disease, unspecified whether esophagitis present K21.9 Esophagitis presence: esophagitis presence not specified Hypoxia R09.02
[2023-04-07] MEDS: PANTOprazole 40 MG TAB PO SCH ×2 (11:09→21:24)
[2023-04-07] MEDS: ENOXAPARIN INJ 40 MG/0.4 ML SYR SQ SCH (12:04)
[2023-04-07] MEDS: SODIUM CHLORIDE 0.9% 1,000 ML IV SCH (16:06)
[2023-04-07] MEDS: ACETAMINOPHEN 325 MG TAB PO PRN (16:12)
[2023-04-07] MEDS: cefTRIAXone SODIUM 2,000 MG in DEXTROSE 5 % MINI-B 50 ML IV SCH (17:33)
--- NOTE | 2023-04-07 17:42 | Hospitalist Progress Note ---
Date of Service April 07, 2023 Assessment & Plan (1) Acute respiratory failure with hypoxia and hypercarbia: (2) COPD exacerbation: (3) Acute respiratory acidosis: Plan: RUL Pneumonia per admitting service notes: This is a 63yo F with a PMH of COPD, interstitial lung disease, hypertension, history of recurrent syncope, Crohn's disease, diet-controlled type 2 diabetes and other medical problems listed below who presents from home with non- productive cough over the last few months with progressive SOB the past week found to be in acute respiratory failure 2/2 COPD exacerbation. Hypoxic at 79% on RA initially, does not require O2 at baseline Afebrile, WBC 16, HR 122, procal WNL meeting SIRs criteria - CXR without e/o opacity, UA pending, covid/flu/rsv PCR is negative, cat scratch noted and will plan to continue Bactrim Suspect WBC and HR elevated 2/2 acute respiratory distress but will obtain CTA chest for better visualization given underlying ILD, r/o PE given elevated d- dimer and sinus tach ABG revealing respiratory acidosis with pH 7.21, pCO2 75, pO281, HCO3 30 Started on bipap with improved clinical appearance, repeat ABG this evening CT chest: 1. No evidence of pulmonary embolus. 2. New focus of groundglass opacity in the right upper lobe is nonspecific but may represent infectious/inflammatory process. 3. Emphysema. Placed on cefepime plus doxycycline Solu-Medrol 40 mg every 8 hours transitionED to prednisone 40 mg daily Pulmicort, levalbuterol/ipratropium nebs, hypertonic saline Mucinex Resume spirometry, flutter valve Clinically improving gradually Weaned off BiPAP, transition to 4 L of oxygen, now on 2 L Wheezing also resolving Still having mild dyspnea on exertion Movie Projectionist on board Will need 2-week prednisone taper course upon discharge Outpatient pulmonary follow-up IgE ordered and Aspergillus IgE ordered as well to evaluate for persistent Th2 mediated disease. She may be a candidate for a biologic such as Xolair, Fasenra, Tezspire, etc on an outpatient basis. Outpatient PFT, possible pulmonary rehab Repeat CT without contrast in 3 months to follow-up on the groundglass opacity noted near the fissure of the right upper lobe (4) Cat scratch of face: Plan: Small abrasion on face with minimal surrounding erythema, no drainage Started on 10d Bactrim course by PCP, plan to continue (5) Crohns disease: Plan: Follows with GI, Infliximab inj Q2Mo, currently at baseline (6) Depression: Plan: Chronic, stable. Continue buprioion, duloxetine (7) DM type 2 (diabetes mellitus, type 2): Plan: A1c 6.2 in Dec 2021, diet controlled Diabetic diet,A1C 6.4 ISS BSG AC HS (8) Hyperlipidemia: Plan: Chronic, stable. Continue statin (9) Chronic low back pain: Plan: Holding home tramadol, gabapentin until more alert (gabapentin dose reduced to 600mg TID given CrCl) (10) Obstructive sleep apnea syndrome: Plan: Resume CPAP HS once transitioned off of bipap DVT Ppx: SQ lovenox Code status: FULL PCP: Amy Dispo: anticipate d/c home when medically stable Admission and Anticipated Discharge Date Admission Date: April 04, 2023 Subjective ff up for pneumonia, COPD exacerbation, etc seen resting in bed, sitting up states she feels that she is improving less dyspnea with ambulation to the bathroom coughing less, able to expectorate sputum more no other symptoms Review of Systems Review of Systems: all noted and negative except for above Physical Exam Physical Exam: General- oriented x 3, not in distress, speaks in sentences with no effort or accessory muscle use Eyes- anicteric Neck- no JVD Lungs- very faint wheeze at the bases Heart- normal rate, regular rhythm; no murmurs Abdomen- normal bowel sounds, nondistended, soft, nontender Extremities- no pretibial edema, no calf tenderness Neuro- alert, oriented x 3; no gross focal neurologic deficits Skin- warm & dry Results & Data Results & Data Vital Signs (Past 12 Hours) Vital Signs Temp Pulse Pulse Pulse Resp BP Pulse Ox 04/07/23 17:18 36.6 C 117 H 20 146/84 H 95 04/07/23 12:37 119 H 18 93 04/07/23 11:48 36.5 C 117 H 20 146/85 H 94 04/07/23 10:08 04/07/23 07:15 119 H 20 94 04/07/23 07:08 36.5 C 122 H 21 123/77 92 04/07/23 05:58 115 H O2 Del Method O2 Flow Rate 04/07/23 17:18 Nasal Cannula 2 04/07/23 12:37 Nasal Cannula 2 04/07/23 11:48 Nasal Cannula 2 04/07/23 10:08 Nasal Cannula 04/07/23 07:15 Nasal Cannula 2 04/07/23 07:08 Nasal Cannula 2 04/07/23 05:58 all noted and reviewed including below
[2023-04-07] MEDS: ATORVASTATIN 40 MG TAB PO SCH (21:24)
[2023-04-07] MEDS: traZODone HCL 50 MG TAB PO SCH (21:24)
[2023-04-07] MEDS: oxyCODONE HCL IR 5 MG TAB (IMMEDIATE RELEASE) PO PRN (21:28)
[2023-04-08] MEDS: LEVALBUTEROL 1.25 MG/3 ML NEB NEB SCH ×4 (00:01→19:28)
[2023-04-08 01:46] LABS: Asperg Fumig Class 0/1; Asperg Fumig IgE 0.11 kU/L; Immunoglobulin IgE 680 kU/L (<OR=114)
[2023-04-08] MEDS: ACETAMINOPHEN 325 MG TAB PO PRN ×2 (02:38→08:08)
[2023-04-08] MEDS: SODIUM CHLORIDE 0.9% 1,000 ML IV SCH (05:37)
[2023-04-08] MEDS: BUDESONIDE 0.5 MG/2 ML VIAL (PULMICORT) NEB SCH ×2 (07:14→19:28)
[2023-04-08] MEDS: IPRATROPIUM BROMIDE NEB SOLN 0.02% 2.5 ML VIAL INH SCH ×4 (07:14→19:28)
[2023-04-08] MEDS: SODIUM CHLOR 7% 4 ML NEB NEB SCH (07:14)
[2023-04-08] MEDS: predniSONE 20 MG TAB PO SCH (08:10)
[2023-04-08] MEDS: MULTIVITAMIN TAB PO SCH (08:10)
[2023-04-08] MEDS: PANTOprazole 40 MG TAB PO SCH ×2 (08:10→20:08)
[2023-04-08] MEDS: buPROPion XL 150 MG TABCR PO SCH (08:10)
[2023-04-08] MEDS: GABAPENTIN 600 MG TAB PO SCH ×3 (08:10→20:08)
[2023-04-08] MEDS: DOXYCYCLINE HYCLATE 100 MG CAP PO SCH ×2 (08:10→20:08)
[2023-04-08] MEDS: SULFAMETHOXAZOLE/TRIMETHOPRIM DS 800/160MG TAB PO SCH (08:10)
[2023-04-08] MEDS: FERROUS SULFATE 325 MG TAB PO SCH (08:10)
[2023-04-08] MEDS: ADVANCED PROBIOTIC 1250 MG CAPSULE PO SCH (08:10)
[2023-04-08] MEDS: DULoxetine HCL 60 MG CAP PO SCH (08:10)
[2023-04-08] MEDS: CHOLECALCIFEROL 1,000 UNITS 25 MCG TAB PO SCH (08:10)
[2023-04-08] MEDS: FLUTICASONE FUROATE 200MCG 14 PUFFS/INHALER INH SCH (08:11)
[2023-04-08] MEDS: UMECLIDINIUM/VILANTEROL 62.5/25MCG 7 PUFFS/INHALER INH SCH (08:11)
[2023-04-08] MEDS: INSULIN ASPART PER UNIT CHARGE SC SCH ×4 (08:18→20:38)
[2023-04-08] MEDS: ENOXAPARIN INJ 40 MG/0.4 ML SYR SQ SCH (12:23)
--- NOTE | 2023-04-08 15:22 | Hospitalist Progress Note ---
Date of Service April 08, 2023 Assessment & Plan (1) Acute respiratory failure with hypoxia and hypercarbia: (2) COPD exacerbation: (3) Acute respiratory acidosis: Plan: This is a 63yo F with a PMH of COPD, interstitial lung disease, hypertension, history of recurrent syncope, Crohn's disease, diet-controlled type 2 diabetes and other medical problems listed below who presents from home with non- productive cough over the last few months with progressive SOB the past week found to be in acute respiratory failure 2/2 COPD exacerbation. Hypoxic at 79% on RA initially, does not require O2 at baseline Afebrile, WBC 16, HR 122, procal WNL meeting SIRs criteria - CXR without e/o opacity, UA pending, covid/flu/rsv PCR is negative, cat scratch noted and will plan to continue Bactrim Suspect WBC and HR elevated 2/2 acute respiratory distress but will obtain CTA chest for better visualization given underlying ILD, r/o PE given elevated d- dimer and sinus tach ABG revealing respiratory acidosis with pH 7.21, pCO2 75, pO281, HCO3 30 Started on bipap with improved clinical appearance, repeat ABG this evening CT chest: 1. No evidence of pulmonary embolus. 2. New focus of groundglass opacity in the right upper lobe is nonspecific but may represent infectious/inflammatory process. 3. Emphysema. 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 She may be a candidate for a biologic such as Xolair, Fasenra, Tezspire, etc on an outpatient basis. Outpatient PFT, possible pulmonary rehab Repeat CT without contrast in 3 months to follow-up on the groundglass opacity noted near the fissure of the right upper lobe (4) Cat scratch of face: Plan: Small abrasion on face with minimal surrounding erythema, no drainage Started on 10d Bactrim course by PCP Stopped as patient is on cefepime and doxycycline (5) Crohns disease: Plan: Follows with GI, Infliximab inj Q2Mo, currently at baseline (6) Depression: Plan: Chronic, stable. Continue buprioion, duloxetine (7) DM type 2 (diabetes mellitus, type 2): Plan: A1c 6.2 in Dec 2021, diet controlled Diabetic diet,A1C 6.4 ISS BSG AC HS (8) Hyperlipidemia: Plan: Chronic, stable. Continue statin (9) Chronic low back pain: Plan: Holding home tramadol, gabapentin until more alert (gabapentin dose reduced to 600mg TID given CrCl) (10) Obstructive sleep apnea syndrome: Plan: Resume CPAP HS once transitioned off of bipap DVT Ppx: SQ lovenox Code status: FULL PCP: Amy Dispo: anticipate d/c home when medically stable Time spent evaluating patient, direct bedside care, chart review, placing orders, interpretation of diagnostic studies, discussion with consultants, patient, and family members, as well as other required patient management activities is 60 minutes Please note the above document was generated using voice recognition software. It may contain grammatical, syntax or spelling errors. Any formal questions or concerns about the content, text or information contained within the body of this dictation should be directly addressed to the provider for clarification Admission and Anticipated Discharge Date Admission Date: April 04, 2023 Subjective Patient seen and examined at bedside. She is comfortably sitting up on the bed; not in distress. Oxygen requirement down to 2 L by nasal cannula. Review of Systems Review of Systems: All systems reviewed & are unremarkable except as noted in Subjective Physical Exam Physical Exam: General- oriented x 3, not in distress, speaks in sentences with no effort or accessory muscle use Eyes- anicteric Neck- no JVD Lungs- very faint wheeze at the bases Heart- normal rate, regular rhythm; no murmurs Abdomen- normal bowel sounds, nondistended, soft, nontender Extremities- no pretibial edema, no calf tenderness Neuro- alert, oriented x 3; no gross focal neurologic deficits Skin- warm & dry Results & Data Results & Data Vital Signs (Past 12 Hours) Vital Signs Temp Pulse Pulse Resp BP Pulse Ox O2 Del Method 04/08/23 14:10 112 H 14 91 Room Air 04/08/23 11:36 36.6 C 111 H 20 129/78 93 Nasal Cannula 04/08/23 07:59 Nasal Cannula 04/08/23 07:38 36.6 C 114 H 20 127/84 94 Nebulizer 04/08/23 07:37 115 H 04/08/23 07:16 113 H 14 95 Nasal Cannula O2 Flow Rate FiO2 04/08/23 14:10 21 04/08/23 11:36 1 04/08/23 07:59 2 04/08/23 07:38 04/08/23 07:37 04/08/23 07:16 2 Laboratory Results Laboratory Results WBC 15.33 K/ul (4.8-10.8) H 04/06/23 06:48 RBC 3.92 M/uL (4.20-5.40) L 04/06/23 06:48 Hgb 11.3 g/dl (12.0-16.0) L 04/06/23 06:48 POC Hgb 13.6 g/dl (12.0-16.0) 04/04/23 07:36 Hct 36.7 % (37.0-47.0) L 04/06/23 06:48 POC Hct 40 % (37-47) 04/04/23 07:36 MCV 93.6 fL (80.0-100.0) 04/06/23 06:48 MCH 28.8 pg (25.0-34.0) 04/06/23 06:48 MCHC 30.8 g/dL (32.0-36.0) L 04/06/23 06:48 RDW Std Deviation 43.7 fL (36.4-46.3) 04/06/23 06:48 RDW Coeff of Dougie 12.7 % (11.5-14.5) 04/06/23 06:48 Plt Count 263 K/uL (130-400) 04/06/23 06:48 MPV 10.1 fL (9.4-12.4) 04/06/23 06:48 Immature Gran % (Auto) 0.7 % 04/04/23 07:30 Neut % (Auto) 84.5 % 04/04/23 07:30 Lymph % (Auto) 6.8 % 04/04/23 07:30 Ford % (Auto) 7.4 % 04/04/23 07:30 Eos % (Auto) 0.2 % 04/04/23 07:30 Baso % (Auto) 0.4 % 04/04/23 07:30 Neut # (Auto) 13.54 K/uL (1.40-6.50) H 04/04/23 07:30 Lymph # (Auto) 1.08 K/uL (1.20-3.40) L 04/04/23 07:30 Ford # (Auto) 1.18 K/uL (0.11-0.59) H 04/04/23 07:30 Eos # (Auto) 0.03 K/uL (0.00-0.50) 04/04/23 07:30 Baso # (Auto) 0.06 K/uL (0.00-0.20) 04/04/23 07:30 Immature Gran # (Auto) 0.11 K/uL (0.01-0.20) 04/04/23 07:30 PT 11.0 Seconds (9.0-12.0) 04/04/23 07:30 INR 1.0 (0.9-1.1) 04/04/23 07:30 APTT 33.6 Seconds (21.0-31.0) H 04/04/23 07:30 PTT Ratio 1.2 04/04/23 07:30 D-Dimer 820 ug/L FEU (0-500) H* 04/04/23 11:50 ABG pH 7.36 (7.35-7.45) 04/05/23 10:58 ABG pCO2 50 mmHg (35-46) H 04/05/23 10:58 ABG pO2 75 mmHg (80-95) L 04/05/23 10:58 ABG HCO3 28 mmol/L (19-24) H 04/05/23 10:58 ABG O2 Saturation 96.3 % (90-95) H 04/05/23 10:58 ABG Base Excess 2.1 mEq/L (-9-1.8) H 04/05/23 10:58 Josef Test Pos (Pos) 04/05/23 10:58 VBG pH 7.27 (7.36-7.41) L 04/04/23 07:30 VBG pCO2 67 mmHg (38-50) H 04/04/23 07:30 VBG pO2 39 mmHg 04/04/23 07:30 VBG HCO3 31 mmol/L 04/04/23 07:30 VBG O2 Saturation 62.4 % 04/04/23 07:30 VBG Base Excess 2.0 mEq/L 04/04/23 07:30 Oxygen Given 4L 04/05/23 10:58 POC Sodium 138 mmol/L (135-144) 04/04/23 07:36 Sodium 137 mmol/L (136-145) 04/06/23 06:48 POC Potassium 3.7 mmol/L (3.3-5.0) 04/04/23 07:36 Potassium 5.2 mmol/L (3.5-5.1) H 04/06/23 06:48 POC Chloride 100 mmol/L (101-112) L 04/04/23 07:36 Chloride 105 mmol/L (98-107) 04/06/23 06:48 Carbon Dioxide 29 mmol/L (21-32) 04/06/23 06:48 POC Total CO2 28 mmol/L (24-31) 04/04/23 07:36 Anion Gap 3 (3-11) 04/06/23 06:48 POC Anion Gap 15.0 mmol/L (16-25) L 04/04/23 07:36 POC BUN 10 mg/dl (7-18) 04/04/23 07:36 BUN 27 mg/dl (6-23) H 04/06/23 06:48 Creatinine 1.21 mg/dl (0.6-1.2) H 04/06/23 06:48 POC Creatinine 1.0 mg/dl (0.6-1.3) 04/04/23 07:36 Est Cr Clr Drug Dosing 55.2 ml/min 04/06/23 06:48 Est GFR ( Amer) 55.9 ml/min 04/06/23 06:48 Est GFR (Non-Af Amer) 48.3 ml/min 04/06/23 06:48 BUN/Creatinine Ratio 22.3 (10-20) H 04/06/23 06:48 Glucose 126 mg/dl (70-99(Fasting)) H 04/06/23 06:48 POC Glucose 145 mg/dl (70-99) H 04/08/23 11:15 POC Glucose (other) 190 mg/dl (70-99) H 04/04/23 07:36 Estimat Average Glucose 137 mg/dl 04/05/23 07:33 Hemoglobin A1c 6.4 % (4.5-5.6) H 04/05/23 07:33 Calcium 8.8 mg/dl (8.6-10.3) 04/06/23 06:48 POC Ioniz Calcium Cindy 1.07 mmol/l (1.12-1.32) L 04/04/23 07:36 Magnesium 1.9 mg/dl (1.7-2.4) 04/04/23 09:26 Troponin I High Sens 31.7 pg/ml (0-14) H 04/04/23 09:26 B-Natriuretic Peptide 71 pg/ml (0-100) 04/04/23 07:30 Lipase 4 U/L (11-82) L 04/04/23 07:30 Procalcitonin 0.07 ng/ml (0-0.5) 04/04/23 11:50 A.fumigatus Allerg IgE 0.11 kU/L H 04/06/23 12:13 A. fumigatus ASM Class 0/1 04/06/23 12:13 Allergen Test Interp See Below 04/06/23 12:13 Urine Color Yellow 04/05/23 01:40 EST Urine Appearance Clear (Clear) 04/05/23 01:40 EST Urine pH 6.0 (4.5-7.5) 04/05/23 01:40 EST Ur Specific [place] > 1.045 (1.000-1.030) H 04/05/23 01:40 EST Urine Protein 1+ (Negative) H 04/05/23 01:40 EST Urine Glucose (UA) Negative (Negative) 04/05/23 01:40 EST Urine Ketones Negative (Negative) 04/05/23 01:40 EST Urine Blood Negative (Negative) 04/05/23 01:40 EST Urine Nitrite Negative (Negative) 04/05/23 01:40 EST Urine Bilirubin Negative (Negative) 04/05/23 01:40 EST Urine Urobilinogen Negative (Negative) 04/05/23 01:40 EST Ur Leukocyte Esterase Negative (Negative) 04/05/23 01:40 EST Urine WBC (Auto) 1-5 /hpf (0-5) 04/05/23 01:40 EST Urine RBC (Auto) 0-4 /hpf (0-4) 04/05/23 01:40 EST U Hyaline Cast (Auto) 1-5 /lpf (0-5) 04/05/23 01:40 EST U Epithel Cells (Auto) >30 /lpf (0-5) H 04/05/23 01:40 EST Urine Bacteria (Auto) Negative (Negative) 04/05/23 01:40 EST IgE 680 kU/L (<II=510) H 04/06/23 12:13 SARS-CoV-2 (PCR) NEGATIVE (Negative) 04/04/23 07:30 Influenza Type A (PCR) Negative (Neg) 04/04/23 07:30 Influenza Type B (PCR) Negative (Neg) 04/04/23 07:30 RSV (RT-PCR) Negative (Neg) 04/04/23 07:30 Impressions Chest X-Ray 04/04/23 07:22 XR chest 1V portable CLINICAL HISTORY: Chest pain, nonspecific TECHNIQUE: Single frontal radiograph of the chest was obtained. Comparison: Comparison is made to chest radiograph to 08/18/2021 FINDINGS: No lines and tubes are seen. Calcified aortic knob is seen. The lungs are clear. No evidence of pleural effusion or pneumothorax. IMPRESSION: No acute chest disease. ACT 112: Negative or not required by law. Electronically signed by: Emanuel Ambrose M.D. 04/04/2023 9:20 AM Chest CTA 04/04/23 13:08 CT angio chest PE protocol CLINICAL HISTORY: eval for PE TECHNIQUE: Multidetector row helical CT of the chest was performed with angiographic protocol. Coronal and sagittal reformations were obtained. Coronal and sagittal MIPS were obtained from the axial data set and were submitted for review. Automated dose lowering techniques and/or adjustment according to patient size were utilized for this exam. CT DOSE: 637.87 mGy.cm Comparison: Comparison is made to CT chest 05/21/2013 FINDINGS: Lungs and pleura: Mild emphysema is seen. Focal groundglass opacity is seen in the right upper lobe (series 4 image 170). Heart and pericardium: Heart size is normal. No pericardial effusion. Vessels: No evidence of pulmonary embolism. Pulmonary trunk measures 33 mm in diameter. Mediastinum and monae: Subcentimeter lymph nodes are seen. Chest wall and lower neck: Small thyroid nodules are noted which do not require follow-up by ACR criteria. Abdomen: Unremarkable. Bones: Degenerative changes in the thoracic spine. IMPRESSION: 1. No evidence of pulmonary embolus. 2. New focus of groundglass opacity in the right upper lobe is nonspecific but may represent infectious/inflammatory process. 3. Emphysema. ACT 112: Negative or not required by law. Electronically signed by: Emanuel Ambrose M.D. 04/04/2023 8:28 PM
[2023-04-08] MEDS: cefTRIAXone SODIUM 2,000 MG in DEXTROSE 5 % MINI-B 50 ML IV SCH (17:05)
[2023-04-08] MEDS: ATORVASTATIN 40 MG TAB PO SCH (20:08)
[2023-04-08] MEDS: traZODone HCL 50 MG TAB PO SCH (20:08)
[2023-04-09] MEDS: LEVALBUTEROL 1.25 MG/3 ML NEB NEB SCH ×3 (01:03→13:34)
[2023-04-09] MEDS: IPRATROPIUM BROMIDE NEB SOLN 0.02% 2.5 ML VIAL INH SCH ×3 (01:03→13:34)
[2023-04-09] MEDS: BUDESONIDE 0.5 MG/2 ML VIAL (PULMICORT) NEB SCH (07:14)
[2023-04-09 07:21] LABS: Basophils # (auto) 0.04 K/uL (0.00-0.20); Basophils % (auto) 0.3 %; Eosinophils # (auto) 0.03 K/uL (0.00-0.50); Eosinophils % (auto) 0.3 %; Hematocrit (blood only) 38.2 % (37.0-47.0); Hemoglobin 11.9 g/dl (12.0-16.0); Immature Granulocytes # (auto) 0.32 K/uL (0.01-0.20); Immature Granulocytes % (auto) 2.8 %; Lymphocytes # (auto) 2.69 K/uL (1.20-3.40); Lymphocytes % (auto) 23.3 %; Mean Corpuscular Hemoglobin 28.4 pg (25.0-34.0); Mean Corpuscular Hgb Conc 31.2 g/dL (32.0-36.0); Mean Corpuscular Volume 91.2 fL (80.0-100.0); Mean Platelet Volume 9.8 fL (9.4-12.4); Monocytes % (auto) 10.4 %; Neutrophils # (auto) 7.27 K/uL (1.40-6.50); Neutrophils % (auto) 62.9 %; Platelet Count 262 K/uL (130-400); RDW Coefficient of Variation 12.7 % (11.5-14.5); RDW Standard Deviation 41.8 fL (36.4-46.3); Red Blood Count 4.19 M/uL (4.20-5.40); White Blood Count 11.55 K/ul (4.8-10.8)
[2023-04-09 07:44] LABS: Calcium 8.7 mg/dl (8.6-10.3); Creatinine Clr Calc Pharmacy 65.6 ml/min; Est GFR (African American) 70.4 ml/min; Est GFR (Non-African American) 60.8 ml/min; Potassium 4.4 mmol/L (3.5-5.1)
[2023-04-09] MEDS: INSULIN ASPART PER UNIT CHARGE SC SCH ×2 (07:57→12:41)
[2023-04-09] MEDS: FLUTICASONE FUROATE 200MCG 14 PUFFS/INHALER INH SCH (08:19)
[2023-04-09] MEDS: UMECLIDINIUM/VILANTEROL 62.5/25MCG 7 PUFFS/INHALER INH SCH (08:19)
[2023-04-09] MEDS: FERROUS SULFATE 325 MG TAB PO SCH (08:20)
[2023-04-09] MEDS: predniSONE 20 MG TAB PO SCH (08:20)
[2023-04-09] MEDS: DOXYCYCLINE HYCLATE 100 MG CAP PO SCH (08:20)
[2023-04-09] MEDS: ADVANCED PROBIOTIC 1250 MG CAPSULE PO SCH (08:20)
[2023-04-09] MEDS: DULoxetine HCL 60 MG CAP PO SCH (08:20)
[2023-04-09] MEDS: GABAPENTIN 600 MG TAB PO SCH (08:20)
[2023-04-09] MEDS: buPROPion XL 150 MG TABCR PO SCH (08:20)
[2023-04-09] MEDS: CHOLECALCIFEROL 1,000 UNITS 25 MCG TAB PO SCH (08:20)
[2023-04-09] MEDS: MULTIVITAMIN TAB PO SCH (08:21)
[2023-04-09] MEDS: PANTOprazole 40 MG TAB PO SCH (08:21)
[2023-04-09] MEDS: ENOXAPARIN INJ 40 MG/0.4 ML SYR SQ SCH (14:51)
--- NOTE | 2023-04-09 15:21 | Discharge Summary ---
Date of Service April 09, 2023 Admission HPI Per Admitting Provider This is a 63yo F with a PMH of COPD, interstitial lung disease, hypertension, history of recurrent syncope, Crohn's disease, diet-controlled type 2 diabetes and other medical problems listed below who presents from home with non- productive cough over the last few months with progressive SOB the past week. Some pleuritic chest pain and wheezing. + Headache and abdominal discomfort she attributes to worsening cough. Denies any recent sick contacts. Is not on oxygen at baseline. states she has seemed more sleepy and slower to verbally respond since yesterday, which is not her baseline. Denies any F/C, s ore throat, congestion, CP, palpitations, N/V, dysuria, diarrhea or constipation. Former 2 ppd smoker. Has been taking all medications as prescribed including Trelegy inhaler every morning and DuoNebs routinely especially over the past week. Was seen by PCP yesterday for routine follow-up and was noted to have some respiratory issues with instruction to continue Trelegy and DuoNebs but no indication for antibiotics or steroids yesterday. Also noted to have a cat scratch abrasion on right chin with some surrounding erythema and was started on a 10-day course of Bactrim. Admission Exam Per Admitting Provider GENERAL: Intermittent drowsy thru bedside exam. on 4L NC O2. appears ill/sick. HEENT: No pallor, no icterus. Pupils equal, round and reactive to light. Oral mucosa moist. Rt lower jaw w/ <1cm scabbed abrasion. NECK: No JVD, no neck masses. HEART: S1 and S2 heard. Regular rate and rhythm. No murmur, no gallop. RESPIRATORY SYSTEM: Normal AP diameter. No accessory muscle use. + wheezing, b/l crackles. able to complete sentences but tired afterwards. ABDOMEN: Soft, bowel sounds present, nontender, no distention. CENTRAL NERVOUS SYSTEM: No facial droop. Speech is clear. Obeys simple commands. Moves extremities. EXTREMITIES: No edema, no erythema seen. BLE chronic skin changes noted Principal Diagnosis (1) Acute respiratory failure with hypoxia and hypercarbia: (2) COPD exacerbation: (3) Acute respiratory acidosis: Discharge Exam General- oriented x 3, not in distress, speaks in sentences with no effort or accessory muscle use Eyes- anicteric Neck- no JVD Lungs- very faint wheeze at the bases Heart- normal rate, regular rhythm; no murmurs Abdomen- normal bowel sounds, nondistended, soft, nontender Extremities- no pretibial edema, no calf tenderness Neuro- alert, oriented x 3; no gross focal neurologic deficits Skin- warm & dry Discharge Data Allergies Allergy/AdvReac Type Severity Reaction Status Date / Time adhesive tape AdvReac Severe TEARS SKIN Verified 04/04/23 09:58 Consultations 04/04/23 08:49 ED Decision to Admit Stat 04/06/23 09:14 Consult Pulmonology Routine Ordered Studies 04/04/23 13:08 CT angio chest PE protocol Routine Hospital Course (1) Acute respiratory failure with hypoxia and hypercarbia: (2) COPD exacerbation: (3) Acute respiratory acidosis: (4) Cat scratch of face: (5) Crohns disease: (6) Depression: (7) DM type 2 (diabetes mellitus, type 2): (8) Hyperlipidemia: (9) Chronic low back pain: (10) Obstructive sleep apnea syndrome: This is a 63yo F with a PMH of COPD, interstitial lung disease, hypertension, history of recurrent syncope, Crohn's disease, diet-controlled type 2 diabetes and other medical problems listed below who presents from home with non- productive cough over the last few months with progressive SOB the past week found to be in acute respiratory failure 2/2 COPD exacerbation. On presentation, hypoxic at 79% on RA WBC 16, HR 122, procal WNL meeting SIRs criteria ABG revealing respiratory acidosis with pH 7.21, pCO2 75, pO281, HCO3 30 Started on bipap with improved clinical appearance and admitted to telemetry floor. CT chest on admission: 1. No evidence of pulmonary embolus. 2. New focus of groundglass opacity in the right upper lobe is nonspecific but may represent infectious/inflammatory process. 3. Emphysema. During the hospitalization, patient was given antibiotic with cefepime and doxycycline, duonebs and steroids. Pulmonology was consulted, IgE and Aspergillus IgE was ordered by pulmonology. Patient gradually improved throughout the hospitalization; she was saturating well in room air at discharge. Patient was given oral antibiotics to complete the antibiotic course. She was also given 9 more days of steroids Patient to follow-up with PCP and obtained repeat HRCT in 3 months. Patient to also follow-up with pulmonology Two-step oxygen evaluation was done at discharge; patient needed 1 L of oxygen on exertion Please note the above document was generated using voice recognition software. It may contain grammatical, syntax or spelling errors. Any formal questions or concerns about the content, text or information contained within the body of this dictation should be directly addressed to the provider for clarification Total Time Total Time Spent Total Time Spent (In Minutes): 35 Discharge Plan Discharge Items Patient Disposition: Home - Self-Care Reason For Visit: HYPOXIA,COPD Discharge Diagnosis: Acute asthma exacerbation Activity: Resume your previous activity Non-emergency contact: Primary Care Provider Call non-emergency contact if: you have any medication questions Follow-up/Referrals: Mekhi Reyes MD [Primary Care Provider] - (Date & Time 04/13/2023 9:00 AM Provider Krystyna Flaherty PA-C Department [facility] ) Diet: Regular Addtl Attending Provider Instructions: You were admitted to the hospital due to acute asthma exacerbation. You are prescribed following medication at discharge: 1) cefdinir 300 mg twice a day for 5 days 2) doxycycline 100 mg twice a day for 5 days 3) prednisone 10 mg: Take 4 tablets for 3 days, 2 tablets for 3 days and 1 tab let for 3 days You will need repeat CT chest without contrast in 3 months to follow-up on groundglass opacities in the right upper lung You were seen by pulmonology during the hospitalization. Studies (IgE and Aspergillus IgE) are sent to evaluate for persistent th2 mediated disease. Need to follow-up with your pulmonology regarding the results and discuss further. Pending Studies at Discharge: Yes Studies:: IgE and Aspergillus IgE Stand-Alone Forms: My [facility] [employer], Smoking Cessation Medications and DC Order Prescriptions: New doxycycline hyclate 100 mg Capsule 100 mg PO BID 4 Days Qty: 8 0RF cefdinir 300 mg capsule 300 mg PO BID 4 Days Qty: 8 0RF prednisone 10 mg tablet See Taper PO DAILY Qty: 30 0RF Taper: Taper, Blank 40 mg DAILY for 3 Days 20 mg DAILY for 3 Days 10 mg DAILY for 3 Days Continued albuterol sulfate 90 mcg/actuation HFA aerosol inhaler 2 puff inhalation Q4H PRN (Reason: Shortness Of Breath Or Wheezing) Qty: 8.5 5RF pantoprazole [Protonix] 40 mg tablet,delayed release (DR/EC) 40 mg PO QAM Qty: 90 3RF infliximab [Remicade] 100 mg recon soln See Rx Instructions IV [id number] Qty: 8 8RF Rx Instructions: 10 mg/kg intravenously every 8 weeks; cholecalciferol (vitamin D3) [Vitamin D3] 1,000 unit Capsule 1,000 unit PO QAM bupropion HCl 150 mg tablet extended release 24 hr 150 mg PO QAM Women's One Daily 18 mg iron-400 mcg-500 mg Ca Tablet 1 tab PO QAM tramadol 50 mg tablet 50 mg PO BID PRN (Reason: Pain) gabapentin 800 mg tablet 800 mg PO TID celecoxib 100 mg capsule 100 mg PO DAILY duloxetine 60 mg capsule,delayed release(DR/EC) 60 mg PO QAM Trelegy Ellipta 200-62.5-25 mcg blister with device 1 ea INHALATION QAM trazodone 50 mg tablet 50 mg PO HS atorvastatin 40 mg tablet 40 mg PO HS ipratropium-albuterol 0.5 mg-3 mg(2.5 mg base)/3 mL solution for nebulization 3 ml inhalation QID Qty: 180 5RF iron 159 mg (45 mg iron) Tablet Extended Release 159 mg PO QAM Discontinued sulfamethoxazole-trimethoprim 800-160 mg tablet 1 tab PO BID Rx Instructions: Start Date 04/03/23 - End Date 04/10/23. Pt has taken 2 of 7 doses as of 04/04/23 Discharge Orders: Discharge Order (Routine); Ordered 04/09/23 Ordered By: Temo Valentin/Other Patient Handouts: Managing Type 2 Diabetes Admission Data Admit Date/Time: 04/04/23 10:53 Attending Provider: Temo Crawford Admit Provider: Ronle Paul Primary Care Provider: Mekhi Reyes Other Providers: Jonathon Fuentes; Edgar Jordan; Jp Russell Other Interventions: Discharge Summary Assessment (RN) Last Done: 04/09/23 15:07
--- OUTSIDE RECORDS SUMMARY | 2023-04-10 08:55 | External Medical Summary | Summary of Care ---
Author Name Unknown Organization [facility] Address [address] [place] [address] Phone [phone] Care Team Providers Care Commercial Real Estate Appraiser Name Role Phone Mekhi Reyes Primary Care Provid er Reason for Referral * Evaluate & Treat - Unlimited Visits (Within 30 days (routine)) - Authorized Specialty Diagnoses / Procedures Referred By Leif ibrahim Referred To Contact Pulmonary Diseases / Pulmonary Diagnoses COPD, group D, by GOLD 2017 classification ([facility]) Carroll Bill PA-C [address] [place] [phone] Referral ID Status Reason Start Date Expiration Date Visits Requested Visits Authorized [id number] Authorized Specialty Services Required 02/17/2023 999 999 Question Answer Referral Priority Within 30 days (routine) Primary Reason for Referral? Asthma/COPD Reason for Visit * Reason Comments Acute Patient has been hav ing nasal congestion, chest congestion with productive cough for the past two weeks. Has not tried any at home measures to help with symptoms.She is unsure what medications she can take for this with her routine medications. Encounter Details Date Type Department Care Team Description 02/17/2023 Office Visit [address] [phone] Carroll Bill PA-C [address] [place] [address] [id number] COPD exacerbation ([facility])*; Sinobronchitis; COPD, group D, by GOLD 2017 classification ([facility]) Allergies No known active allergiesdocumented as of this encounter (statuses as of 02/17/2023) Medications Medication Sig Dispensed Refills Start Date End Date Status Vitamin D3 1.25 MG (53409 UT) Oral Capsule Take 1 Capsule by mouth in the morning. 0 Active Womens Multi Oral Capsule Take 1 Tablet by mouth daily. 0 Active D-Care Glucometer w/Device Kit Use as directed . Use to test BS; e11.9, may substitute for insurance coverage 1 Kit 0 2 Active OneTouch Delica Lancets 30G Use to test blood sugar twice daily; e11.9 200 Each 3 2 Active OneTouch Verio In Vitro Strip (Glucose Blood) Use to test blood sugar twice daily; e11.9 200 Strip 3 2 Active inFLIXimab 100 MG Intravenous Solution Reconstituted Administer 800 mg intravenously every 8 weeks. 1 Each 0 2 Active Trelegy Ellipta 100-62.5-25 MCG/ACT Aerosol Powder Breath Activated (Fluticasone-Umecl idinium-Vilanterol ) Inhale 1 Puff by mouth in the morning. Rinse mouth after use. 60 Blister Dosing Unit 6 3 Active Celecoxib 100 MG Oral Capsule (CeleBREX) Take 1 Capsule by mouth in the morning. for pain. 90 Capsule 1 3 Active Atorvastatin Calcium 40 MG Oral Tablet (Lipitor)Indicatio ns:Hyperlipidemia with target LDL less than 100 Take 1 Tablet by mouth in the morning. 90 Tablet 3 3 Active buPROPion HCl ER (XL) 150 MG Oral Tablet Extended Release 24 Hour (Wellbutrin XL) Take 1 Tablet by mouth in the morning. 90 Tablet 3 3 Active DULoxetine HCl 60 MG Oral Capsule Delayed Release Particles (Cymbalta) Take 1 Capsule by mouth in the morning. Do not cut, crush or chew. 90 Capsule 3 3 Active Pantoprazole Sodium 40 MG Oral Tablet Delayed Release (Protonix) Take 1 Tablet by mouth in the morning. 90 Tablet 3 3 Active Ipratropium-Albute rol 0.5-2.5 (3) MG/3ML Inhalation Solution (Duoneb) Inhale 3 mL via nebulizer every 4 hours as needed for Shortness of Breath or Wheezing. 100 mL 2 3 Active traZODone HCl 50 MG Oral Tablet (Desyrel)Indicatio ns:Sleep disorder Take 1 Tablet by mouth every night at bedtime. 90 Tablet 3 3 Active traMADol HCl 50 MG Oral Tablet (Ultram)Indication s:DDD (degenerative disc disease), lumbar,Chronic pain syndrome Take 1 Tablet by mouth 2 times a day as needed for Pain, Severe. 60 Tablet 3 3 Active Gabapentin 800 MG Oral Tablet (Neurontin) Take 1 Tablet by mouth in the morning and 1 Tablet at noon and 1 Tablet before bedtime. 270 Tablet 3 3 05/17/20 23 Active Albuterol Sulfate HFA 108 (90 Base) MCG/ACT Inhalation Aerosol SolutionIndication s:COPD exacerbation (HCC) Inhale 2 Puffs by mouth every 6 hours as needed for Shortness of Breath or Wheezing. 8.5 g 5 3 Active Spacer/Aero-Holdin g Chambers Device Use with inhaler. 1 Each 0 3 Active CPAP every night at bedtime. 0 Active predniSONE 20 MG Oral Tablet (Deltasone)Indicat ions:Sinobronchiti s,COPD exacerbation (HCC) Take 2 Tablets by mouth in the morning for 5 days. 10 Tablet 0 3 02/23/20 23 Active Amoxicillin-Pot Clavulanate 875-125 MG Oral Tablet (Augmentin)Indicat ions:Sinobronchiti s,COPD exacerbation (HCC) Take 1 Tablet by mouth in the morning and 1 Tablet before bedtime. Do all this for 10 days. 20 Tablet 0 3 02/28/20 23 Active predniSONE 20 MG Oral Tablet (Deltasone) 1 tab 3 times a day for 3 days, then 1 tab 2 times a day for 3 days, then 1 tab daily for 3 days 18 Tablet 0 3 02/18/20 23 Discontinu ed(Medicat ion List Clean Up) Hospital, Clinic, or Other Facility Administered Medication Ordered Dose Route Frequency Start Date End Date Status Albuterol Sulfate (Proventil) (2.5 MG/3ML) 0.083% inhalation solution 2.5 mgIndications:Screening for respiratory condition 2.5 mg NEBULIZER ONCE PRN 04/01/2022 Active documented as of this encounter (statuses as of 02/17/2023) Active Problems Problem Noted Date Colonic stricture 11/18/2022 Leiomyoma of uterus 11/18/2022 Leukocytosis 11/18/2022 Ovarian cyst 11/18/2022 Pneumonia due to COVID-19 virus 11/19/19 23 Recurrent syncope 11/18/2022 UTI (urinary tract infection) 11/18/2022 Tubular adenoma of colon 11/18/2022 Tachycardia 11/18/2022 COPD, group D, by GOLD 2017 classificati on 09/08/2022 Overview: Per COPD GOLD Classification DDD (degenerative disc disease), lumbar 08/15/2022 Chronic pain syndrome 08/15/2022 Achilles tendon pain 08/15/2022 Overweight (BMI 25.0-29.9) 11/19/2021 Crohn's disease of colon with complicati on 07/26/2021 S/P partial resection of colon 2 Interstitial pulmonary disease 2 Crohn's disease 03/05/2021 Sleep disorder 10/01/2020 Bilateral lower extremity edema 09/04/19 S/P lumbar fusion 09/03/2020 Chronic bilateral low back pain without sciatica 09/03/2020 Hip pain, left 09/03/2020 Hypertension goal BP (blood pressure) < 140/90 09/03/2020 Mood disorder 09/03/2020 Hyperlipidemia with target LDL less than 100 09/03/2020 Type 2 diabetes mellitus with hemoglobin A1c goal of less than 7.0% 08/23/2020 Hemarthrosis of ankle and foot 9 Other screening mammogram 01/18/2018 Enthesopathy of knee 12/22/2017 Sciatica 11/19/2017 Encounter for screening for malignant ne oplasm of colon 08/20/2017 Generalized anxiety disorder 02/12/2017 Malaise and fatigue 02/12/2017 documented as of this encounter (statuses as of 02/17/2023) Resolved Problems Problem Noted Date Resolved Date TERMINATED MEDICATION USAGE AGREEMENT 02/17/2022 07/18/2022 Chronic use of opiate for therapeutic purpose 08/15/2022 COPD, group C, by GOLD 2017 classification 12/0909/11/2022 Overview: Per COPD GOLD Classification Chronic kidney disease, stage 3a 07/15/2021 08/15/2022 Overview: Per CKD protocol Diabetes mellitus with stage 3 chronic kidney di sease 07/15/2021 08/15/2022 Type 2 diabetes mellitus wit h stage 3a chronic kidney disease 06/10/2021 08/15/2022 Overview: Per CKD protocol Diabetes mellitus with stage 3 chronic kidney di sease 05/13/2021 06/13/2021 Overview: Per CKD protocol Crohn's disease of small intestine without compl ications 12/11/2020 01/27/2022 Controlled substance agreement signed 12/09/2020 02/17/2022 Stage 3a chronic kidney disease 09/03/2020 05/16/2021 Overview: Per CKD protocol Chronic obstructive pulmonary disease 09/03/2020 12/12/2021 Overview: Per COPD GOLD Classification documented as of this encounter (statuses as of 02/17/2023) Immunizations Name Administration Dates Next Due COVID-19 mRNA, LNP-s, No Pre serve, 2-Dose Series ([employer]) 05/15/2021,09/12/2020,08/22/2020 Hepatitis B, 20+ yrs 11/19/2021,05/20/20 21(Deferred: Contraindication),11/13/2020 12/13/2020 Pneumococcal Conjugate Vacc, 13 Valent (Prevnar) 04/20/2018 Pneumococcal Conjugate Vacci ne, 20-valent ([id number]) 01/27/2022 Seasonal Influenza Virus Vac cine, Unspecified Formulation 04/21/2020,02/08/2019,03/04/2018,02/04 Seasonal Influenza, Quadriva lent, No Preserve, IM 03/01/2020 Seasonal Influenza, Quadriva lent, No Preserve, Mdck 03/01/2017 Zoster Vaccine Recombinant (Shingrix) 07/18/2022,01/27/2022 07/29/2022 documented as of this encounter Social History Tobacco Use Types Packs/Day Years Used Date Smoking Tobacco: Former Cigarettes 2 Smokeless Tobacco: Never Alcohol Use Standard Drinks/Week Comments No 0 (1 standard drink = 0.6 oz pur e alcohol) Food Insecurity Answer Date Recorded Within the past 12 months, y ou worried that your food would run out before you got money to buy more. Never true 08/15/2022 Within the past 12 months, t he food you bought just didn't last and you didn't have money to get more. Never true 08/15/2022 Sex Assigned at Date Recorded Female 08/23/2020 8:55 AM E DT Job Start Date Occupation Industry Not on file Not on file Not on file documented as of this encounter Last Filed Vital Signs Vital Sign Reading Time Taken Comments Blood Pressure 127/80 02/17/2023 11:33 AM EDT Pulse 108 02/17/2023 11:33 AM EDT Temperature 36.6 C (97.9 F) 02/17/2023 11:33 AM E DT Respiratory Rate 18 02/17/2023 11:33 AM EDT Oxygen Saturation 92% 02/17/2023 11:33 AM EDT Inhaled Oxygen Concentration - - Weight 84.2 kg (185 lb 9.6 oz) 02/17/2023 11:33 AM EDT Height - - Body Mass Index 29.96 07/01/2022 10:19 AM EST documented in this encounter Progress Notes * Carroll Bill PA-C - 02/17/2023 11:48 AM EDT Images from the original note were not included. Nursing Notes: Rhonda Chow LPN 02/17/23 1135 Signed The patient has been properly identified by confirmation of name and date of . Chief Complaint Patient presents with Acute Patient has been having nasal congestion, chest congestion with productive cough for the past two weeks. Has not tried any at home measures to help with symptoms. She is unsure what medications she can take for this with her routine medications. Patient has been verbally educated on the need or importance of Immunizations: tdap and flu History of Present Illness Krystin Jaffe is a 62 year old female that presents for Acute (Patient has been having nasal congestion, chest congestion with productive cough for the past two weeks. /Has not tried any at home measures to help with symptoms./She is unsure what medications she can take for this with her routine medications. ) Past 2 weeks with nasal/sinus congestion, productive cough, intermittent headaches. No fever. "I get like this all the time." Known COPD, former smoker. States used to see a Nut Roaster but they retired and she never re-established - would be agreeable. Compliant with daily Trelegy. Admits frequent use of albuterol with illness. Physical Exam Vitals: 02/17/23 1133 Temp: 36.6 C (97.9 F) Pulse: 108 Resp: 18 SpO2: 92% BP: 127/80 Wt Readings from Last 3 Encounters: 02/17/23 84.2 kg (185 lb 9.6 oz) 12/24/22 82.7 kg (182 lb 4.8 oz) 12/16/22 83.9 kg (185 lb) Physical Exam Vitals and nursing note reviewed. Constitutional: General: She is not in acute distress. Appearance: Normal appearance. HENT: Head: Normocephalic and atraumatic. Right Ear: Tympanic membrane, ear canal and external ear normal. Left Ear: Tympanic membrane, ear canal and external ear normal. Nose: Congestion present. Mouth/Throat: Pharynx: No posterior oropharyngeal erythema. Cardiovascular: Rate and Rhythm: Normal rate and regular rhythm. Pulmonary: Effort: Pulmonary effort is normal. Breath sounds: No wheezing, rhonchi or rales. Comments: Diminished breath sounds throughout. Musculoskeletal: Cervical back: Neck supple. Lymphadenopathy: Cervical: No cervical adenopathy. Neurological: Mental Status: She is alert and oriented to person, place, and time. Psychiatric: Mood and Affect: Mood normal. Assessment and Plan COPD exacerbation (HCC) - predniSONE 20 MG Oral Tablet (Deltasone); Take 2 Tablets by mouth in the morning for 5 days. - Amoxicillin-Pot Clavulanate 875-125 MG Oral Tablet (Augmentin); Take 1 Tablet by mouth in the morning and 1 Tablet before bedtime. Do all this for 10 days. Sinobronchitis - predniSONE 20 MG Oral Tablet (Deltasone); Take 2 Tablets by mouth in the morning for 5 days. - Amoxicillin-Pot Clavulanate 875-125 MG Oral Tablet (Augmentin); Take 1 Tablet by mouth in the morning and 1 Tablet before bedtime. Do all this for 10 days. COPD, group D, by GOLD 2017 classification ([facility]) - PULMONARY REFERRAL OP Wrap-Up Follow-up: Return if symptoms worsen or fail to improve. | Check-out note: Schedule with Pulmonology. Time: I spent a total of 20-29 minutes (exact time 25 mins) on the date of service in preparation, delivery, and documentation of the care provided to Krystin Jaffe excluding any time spent in the performance of separately billed services. documented in this encounter Nursing Notes * Rhonda Chow LPN - 02/17/2023 11:33 AM EDT The patient has been properly identified by confirmation of name and date of . Chief Complaint Patient presents with Acute Patient has been having nasal congestion, chest congestion with productive cough for the past two weeks. Has not tried any at home measures to help with symptoms. She is unsure what medications she can take for this with her routine medications. Patient has been verbally educated on the need or importance of Immunizations: tdap and flu documented in this encounter Plan of Treatment Upcoming Encounters Date Type Specialty Care Team Description 02/26/2023 Telemedicine Pain Medicine Day, [facility] [address] [place] [id number] 03/20/2023 Office Visit Family Medicine Mekhi Reyes, [place] [id number] Scheduled Referrals Name Type Priority Associated Diagnoses Orde r Schedule PULMONARY REFERRAL OP Referral Within 30 days (routine) COPD, group D, by GOLD 2017 classification ([facility]) Ordered: 02/17/2023 Health Maintenance Due Date Last Done Comments DTaP,Tdap,and Td Vaccines (1 - Tdap) 1981 HPV/Co-Test 1992 Cologuard 2007 Fecal Occult Blood Test 2007 Sigmoidoscopy 2007 *COPD SEVERITY VERIFIED BY PFT 09/05/2020 COVID-19 Vaccine (4 - Pfizer risk series) 07/10/2021 05/15/2021, 09/12/2020, 08/22/2020 Albumin/Creatinine Ratio 08/23/2021 08/23/2020 Hepatitis B (3 of 3 - 19+ 3-dose series) 01/14/2022 11/19/2021, 11/13/2020 HbA1c 07/29/2022 01/28/2022, 08/31, 05/13/2021, Additional history exists Depression, Most Recent Score >= 10 (will fire each visit until score < 10) 11/19/2022 11/18/2022 Influenza Vaccine (FLU shot) (#1) 2023 04/21/2020, 03/01/2020, 02/08/2019, Additional history exists DIABETES-EYE EXAM 07/18/2023 07/18/2022, 11/13/2020 Mammogram 07/29/2023 07/29/2022, 04/0 07/2020, 08/30/2020, Additional history exists GFR 09/30/2023 09/29/2022, 06/03, 01/28/2022, Additional history exists Diabetic Foot Exam 11/19/2023 11/18/2022, 0 11/19/2021, 09/13/2020 Cervical Cancer Screening 12/19/2023 Pap Smear 12/19/2023 12/18/2020 O2 ASSESSMENT COMPLETED IN PAST YEAR FOR COPD 01/02/2024 01/01/2023 Lipid Panel 01/28/2027 01/28/2022, 08/31, 05/13/2021, Additional history exists Colonoscopy 07/10/2032 07/10/2022, 09/10/2020 Colorectal Cancer Screening 07/10/2032 Alpha-1 Antitrypsin Completed 09/26/2021 Pneumococcal Vaccine: Pediatrics (0 to 5 Years) and At-Risk Patients (6 to 64 Years) Completed 01/27/2022, 04/20/2018 Zoster Vaccines Completed 07/18/2022, 01/27/2022 GARDASIL-HPV IMMUNIZATION SERIES Aged Out No longer eligible based on patient's age to complete this topic MENINGOCOCCAL (MENACTRA/MENVEO) Aged Out No longer eligible based on patient's age to complete this topic documented as of this encounter Medical Devices Not on filedocumented as of this encounter Visit Diagnoses Diagnosis COPD exacerbation (HCC)- Primary Obstructive chronic bronchitis with exacerbation Sinobronchitis Unspecified sinusitis (chronic) COPD, group D, by GOLD 2017 classification (HCC) documented in this encounter Care Teams Commercial Real Estate Appraiser Relationship Specialty Start Date End Date Mekhi Reyes, [address] [address] PCP - General Internal Medicine 12/10/22 documented as of this encounter
--- OUTSIDE RECORDS SUMMARY | 2023-04-10 08:55 | External Medical Summary | Summary of Care ---
Author Name Unknown Organization [facility] Address [address] [place] [address] Phone [phone] Care Team Providers Care Freelance Court Stenographer Name Role Phone Mekhi Reyes Primary Care Provid er Reason for Visit * Reason Onset Date Comments Cold Symptoms C/o cough (produ ctive--yellow), chest hurts from coughing and sore throat x 3 days.No fever or chills notedUsing no OTC medsRecently treated twice for similar symptoms Medication Administration 03/17/2023 Flu an d/or Pneumo Inj Encounter Details Date Type Department Care Team Description 03/17/2023 Office Visit [address] [phone] Carroll Bill PA-C [address] [place] [id number] Acute URI*; COPD, group D, by GOLD 2017 classification ([facility]); Type 2 diabetes mellitus with hemoglobin A1c goal of less than 7.0% ([facility]); Need for prophylactic vaccination and inoculation against influenza Allergies No known active allergiesdocumented as of this encounter (statuses as of 03/17/2023) Medications Medication Sig Dispensed Refills Start Date End Date Status Vitamin D3 1.25 MG (27906 UT) Oral Capsule Take 1 Capsule by mouth in the morning. 0 Active Womens Multi Oral Capsule Take 1 Tablet by mouth daily. 0 Active D-Care Glucometer w/Device Kit Use as directed . Use to test BS; e11.9, may substitute for insurance coverage 1 Kit 0 10/15/19 Active OneTouch Delica Lancets 30G Use to test blood sugar twice daily; e11.9 200 Each 3 10/15/19 Active OneTouch Verio In Vitro Strip (Glucose Blood) Use to test blood sugar twice daily; e11.9 200 Strip 3 10/15/19 Active inFLIXimab 100 MG Intravenous Solution Reconstituted Administer 800 mg intravenously every 8 weeks. 1 Each 0 01/28/20 Active Celecoxib 100 MG Oral Capsule (CeleBREX) Take 1 Capsule by mouth in the morning. for pain. 90 Capsule 1 10/23/19 Active Atorvastatin Calcium 40 MG Oral Tablet (Lipitor)Indicatio ns:Hyperlipidemia with target LDL less than 100 Take 1 Tablet by mouth in the morning. 90 Tablet 3 11/19/19 Active Additional Information Patient taking differently:40 mg Oral Daily(AM),Patient takes in the evening., Reported on 02/27/2023 buPROPion HCl ER (XL) 150 MG Oral Tablet Extended Release 24 Hour (Wellbutrin XL) Take 1 Tablet by mouth in the morning. 90 Tablet 11/19/19 Active DULoxetine HCl 60 MG Oral Capsule Delayed Release Particles (Cymbalta) Take 1 Capsule by mouth in the morning. Do not cut, crush or chew. 90 Capsule 11/19/19 Active Pantoprazole Sodium 40 MG Oral Tablet Delayed Release (Protonix) Take 1 Tablet by mouth in the morning. 90 Tablet 11/19/19 Active Ipratropium-Albute rol 0.5-2.5 (3) MG/3ML Inhalation Solution (Duoneb) Inhale 3 mL via nebulizer every 4 hours as needed for Shortness of Breath or Wheezing. 100 mL 2 11/19/19 Active traZODone HCl 50 MG Oral Tablet (Desyrel)Indicatio ns:Sleep disorder Take 1 Tablet by mouth every night at bedtime. 90 Tablet 11/19/19 23 Active traMADol HCl 50 MG Oral Tablet (Ultram)Indication s:DDD (degenerative disc disease), lumbar,Chronic pain syndrome Take 1 Tablet by mouth 2 times a day as needed for Pain, Severe. 60 Tablet 11/19/19 23 Active Gabapentin 800 MG Oral Tablet (Neurontin) Take 1 Tablet by mouth in the morning and 1 Tablet at noon and 1 Tablet before bedtime. 270 Tablet 3 11/19/19 23 023 Active Albuterol Sulfate HFA 108 (90 Base) MCG/ACT Inhalation Aerosol SolutionIndication s:COPD exacerbation (HCC) Inhale 2 Puffs by mouth every 6 hours as needed for Shortness of Breath or Wheezing. 8.5 g 5 12/17/19 Active Spacer/Aero-Holdin g Chambers Device Use with inhaler. 1 Each 0 12/17/19 Active CPAP every night at bedtime. 0 Active Trelegy Ellipta 200-62.5-25 MCG/ACT Aerosol Powder Breath Activated (Fluticasone-Umecl idinium-Vilanterol )Indications:COPD, group D, by GOLD 2017 classification (HCC) Inhale 1 Puff by mouth daily. 60 Blister Dosing Unit 5 03/17/20 Active Benzonatate 100 MG Oral Capsule (Tessalon Perles)Indications :Acute URI Take 1 Capsule by mouth 3 times a day as needed for Cough. Do not cut, crush, or chew. 50 Capsule 1 03/17/20 Active guaiFENesin ER 600 MG Oral Tablet Extended Release 12 Hour (Mucinex)Indicatio ns:Acute URI Take 1 Tablet by mouth 2 times a day as needed for Congestion. Take with plenty of water. Do not cut, crush or chew 40 Tablet 2 03/17/20 Active Trelegy Ellipta 100-62.5-25 MCG/ACT Aerosol Powder Breath Activated (Fluticasone-Umecl idinium-Vilanterol ) INHALE 1 PUFF BY MOUTH IN THE MORNING and rinse mouth 60 Blister Dosing Unit 5 02/21/20 23 023 Discontinued predniSONE 20 MG Oral Tablet (Deltasone)Indicat ions:COPD exacerbation (HCC) Take 3 tabs for 3 days, 2 tabs for 3 days, 1 tab for 3 days, 1/2 tab for 3 days 20 Tablet 0 02/28/20 23 023 Discontinued([place] dication List Clean Up) Hospital, Clinic, or Other Facility Administered Medication Ordered Dose Route Frequency Start Date End Date Status Albuterol Sulfate (Proventil) (2.5 MG/3ML) 0.083% inhalation solution 2.5 mgIndications:Screening for respiratory condition 2.5 mg NEBULIZER ONCE PRN 04/01/2022 Active documented as of this encounter (statuses as of 03/17/2023) Active Problems Problem Noted Date Colonic stricture [...] as of this encounter (statuses as of 03/17/2023) Resolved Problems Problem Noted Date Resolved Date TERMINATED MEDICATION USAGE AGREEMENT 02/17/2022 07/18/2022 Chronic use of opiate for therapeutic purpose 08/15/2022 COPD, group C, by GOLD 2017 classification 12/0909/11/2022 Overview: Per COPD GOLD Classification Chronic kidney disease, stage 3a 07/15/2021 08/15/2022 Overview: Per CKD protocol Diabetes mellitus with stage 3 chronic kidney [facility] 07/15/2021 08/15/2022 Type 2 diabetes mellitus wit h stage 3a chronic kidney disease 06/10/2021 08/15/2022 Overview: Per CKD protocol Diabetes mellitus with stage 3 chronic kidney [facility] 05/13/2021 06/13/2021 Overview: Per CKD protocol Crohn's disease of small intestine without compl ications 12/11/2020 01/27/2022 Controlled substance agreement signed 12/09/2020 02/17/2022 Stage 3a chronic kidney disease 09/03/2020 05/16/2021 Overview: Per CKD protocol Chronic obstructive pulmonary disease 09/03/2020 12/12/2021 Overview: Per COPD GOLD Classification documented as of this encounter (statuses as of 03/17/2023) Immunizations Name Administration Dates Next Due COVID-19 mRNA, LNP-s, No Pre serve, 2-Dose Series ([employer]) 05/15/2021,09/12/2020,08/22/2020 Hepatitis B, 20+ yrs 11/19/2021,05/20/20 21(Deferred: Contraindication),11/13/2020 12/13/2020 Pneumococcal Conjugate Vacc, 13 Valent (Prevnar) 04/20/2018 Pneumococcal Conjugate Vacci ne, 20-valent ([email or web address]) 01/27/2022 SEASONAL INFLUENZA, PF, 6 M & Above, IM , (FLULAVAL or FLUZONE) 03/17/2023 Seasonal Influenza Virus Vac cine, Unspecified Formulation [...] Sign Reading Time Taken Comments Blood Pressure 122/80 03/17/2023 11:08 AM EDT Pulse 104 03/17/2023 11:43 AM EDT Temperature 36.9 C (98.4 F) 03/17/2023 11:08 AM E DT Respiratory Rate 20 03/17/2023 11:08 AM EDT Oxygen Saturation 94% 03/17/2023 11:08 AM EDT Inhaled Oxygen Concentration - - Weight 82.3 kg (181 lb 6.4 oz) 03/17/2023 11:08 AM EDT Height - - Body Mass Index 29.28 07/01/2022 10:19 AM EST documented in this encounter Patient Instructions * Patient Instructions* Agueda Sinha LPN - 03/17/2023 11:41 AM EDT ~~PATIENT INSTRUCTIONS FOR FLU SHOT~~ Possible side effects of influenza vaccine, (flu shot), are usually mild and include: 1. Soreness or redness at injection site 2. Low grade fever 3. Body aches You may use Tylenol/Acetaminophen as needed for these symptoms. LET YOUR DOCTOR KNOW IMMEDIATELY IF YOU HAVE DIFFICULTY BREATHING OR SWALLOWING, EXPERIENCE ITCHINGOF FEET OR HANDS, HAVE SWELLING OF EYES, FACE OR INSIDE OF NOSE. documented in this encounter Progress Notes * Agueda Sinha LPN - 03/17/2023 11:40 AM EDT PRE - ADMINISTRATION DOCUMENTATION Are you experiencing any cold symptoms or fever? No Have you had Guillain-Bellingham Syndrome (an illness that causes paralysis) within the last 6 weeks? No Have you had the flu shot in the past? YES Have you ever had a reaction to the flu shot? No gAueda Sinha LPN, 03/17/2023 11:40 AM Immunization Administration Documentation Time Out Procedure Performed: Yes Patient Identified (Ask Name/Date of ): Yes Does the patient have a fever greater than 101 degrees today? No Patient allergic to latex? No VFC Stock: No Immunization(s) verified: Yes, Immunization Name: Flu, VIS Sheet(s) given: Yes Verified Side and Site: Yes Verified Shot(s) with Parent(s)/Patient: Yes * Carroll Bill PA-C - 03/17/2023 11:16 AM EDT Images from the original note were not included. History of Present Illness Krystin Jaffe is a 62 year old female that presents for Cold Symptoms (C/o cough (productive--yellow), chest hurts from coughing and sore throat x 3 days./No fever or chills noted/Using no OTC meds/Recently treated twice for similar symptoms ) Seen 02/17/2023 (in office) for COPD exacerbation, Rx'd Augmentin and prednisone. Returned 02/27/2023 (in office) with Erica Magana PA-C for ongoing respiratory symptoms, Rx'd doxycycline and prednisone. [place] symptoms resolved x 1 week. New illness in past 3 days. No specific ill exposure prior to onset. Home COVID- 19 test negative. +productive cough of yellow sputum, worse at night. No increased SOB. Some stomach upset/diarrhea at onset, now resolved. Staying hydrated. No fever/chills. No sinus congestion/pressure. +sore throat. +left ear pain, improving. No OTC meds tried. Continues daily Trelegy, prn albuterol 3-4 times daily with illness. Has not used nebulizer machine. Scheduled to re-establish care with [facility] Pulmonology in June. Physical Exam Vitals: 03/17/23 1108 03/17/23 1143 Temp: 36.9 C (98.4 F) Pulse: 112 104 Resp: 20 SpO2: 94% BP: 122/80 Wt Readings from Last 3 Encounters: 03/17/23 82.3 kg (181 lb 6.4 oz) 02/27/23 83.1 kg (183 lb 4.8 oz) 02/17/23 84.2 kg (185 lb 9.6 oz) Physical Exam Vitals and nursing note reviewed. Constitutional: General: She is not in acute distress. Appearance: Normal appearance. HENT: Head: Normocephalic and atraumatic. Right Ear: Tympanic membrane, ear canal and external ear normal. Left Ear: Tympanic membrane, ear canal and external ear normal. Nose: Congestion present. Mouth/Throat: Mouth: Mucous membranes are moist. Pharynx: Oropharynx is clear. Cardiovascular: Rate and Rhythm: Normal rate and regular rhythm. Heart sounds: Normal heart sounds. Pulmonary: Effort: Pulmonary effort is normal. Breath sounds: No wheezing, rhonchi or rales. Comments: Diminished breath sounds throughout. Musculoskeletal: General: No swelling. Cervical back: Neck supple. Lymphadenopathy: Cervical: No cervical adenopathy. Neurological: Mental Status: She is alert and oriented to person, place, and time. Psychiatric: Behavior: Behavior normal. I have reviewed the following results: Hemoglobin AIC Results: Lab Results Component Value Date/Time HEMOGLOBIN A1C - [facility] 6.2 (H) 01/28/2022 10:20 AM HEMOGLOBIN A1C - [facility] 5.6 09/26/2021 09:39 AM HEMOGLOBIN A1C - [facility] 5.8 (H) 05/13/2021 08:44 AM HEMOGLOBIN A1C - [facility] 6.8 (H) 12/22/2019 07:57 AM HEMOGLOBIN A1C - [facility] 6.6 (H) 04/22/2019 08:05 AM Creatinine Results: Lab Results Component Value Date/Time CREATININE - [facility] 1.0 07/01/2022 11:15 AM CREATININE - [facility] 1.2 (H) 01/28/2022 10:20 AM CREATININE - [facility] 1.2 (H) 09/26/2021 09:39 AM Assessment and Plan Acute URI - Benzonatate 100 MG Oral Capsule (Tesdeonteon Otto); Take 1 Capsule by mouth 3 times a day as needed for Cough. Do not cut, crush, or chew. - guaiFENesin ER 600 MG Oral Tablet Extended Release 12 Hour (Mucinex); Take 1 Tablet by mouth 2 times a day as needed for Congestion. Take with plenty of water. Do not cut, crush or chew COPD, group D, by GOLD 2017 classification ([facility]) - XR CHEST 2 VIEWS - Trelegy Ellipta 200-62.5-25 MCG/ACT Aerosol Powder Breath Activated (Zkktrdphkce-Yyczarqjpxnm-Qqffkaumpi); Inhale 1 Puff by mouth daily. - dose increase Type 2 diabetes mellitus with hemoglobin A1c goal of less than 7.0% ([facility]) - ALBUMIN / CREATININE RATIO, URINE; Future Need for prophylactic vaccination and inoculation against influenza - INFLUENZA VACC, QUAD, PF, 6 MONTHS & UP, 0.5 ML, IM Wrap-Up Follow Up: Return if symptoms worsen or fail to improve, for Xray today, Fasting Labs 2-5 Days Before Next Visit. | For: Xray today, Fasting Labs 2-5 Days Before Next Visit | Check-out note: 2023 as scheduled. Time: I spent a total of 30-39 minutes (exact time 30 mins) on the date of service in preparation, delivery, and documentation of the care provided to Krystin Jaffe excluding any time spent in the performance of separately billed services. documented in this encounter Nursing Notes * Augeda Sinha LPN - 03/17/2023 11:11 AM EDT The patient has been properly identified by confirmation of name and date of . Chief Complaint Patient presents with Cold Symptoms C/o cough (productive--yellow), chest hurts from coughing and sore throat x 3 days. No fever or chills noted Using no OTC meds Recently treated twice for similar symptoms documented in this encounter Plan of Treatment Upcoming Encounters Date Type Specialty Care Team Description 2023 Office Visit Family Medicine Mekhi Reyes Remberto, DO [address] [place] [address] 05/11/2023 Hospital Encounter Surgery Juan M Borrero, DO [address] [place] [address] 05/11/2023 Surgery Surgery Juan M Borrero, DO [address] [place] [phone] INJECTION SPINE LUMBAR OR SACRAL 08/10/2023 [facility] [phone] Pending Results Name Type Priority Associated Diagnoses Date /Time XR CHEST 2 VIEWS Medical Imaging Routine COPD, group D, by GOLD 2017 classification ([facility]) 03/17/2023 12:00 PM EDT Scheduled Orders Name Type Priority Associated Diagnoses Orde r Schedule ALBUMIN / CREATININE RATIO, URINE Lab Routine Type 2 diabetes mellitus with hemoglobin A1c goal of less than 7.0% ([facility]) Expected: 03/17/2023 (Approximate), Expires: 03/16/2024 Scheduled Procedures Name Priority Associated Diagnoses Date/Ti me INJECTION SPINE LUMBAR OR SACRAL Lumbar radiculopathy 05/11/2023 8:25 AM EST Health Maintenance Due Date Last Done Comments DTaP,Tdap,and Td Vaccines (1 - Tdap) 1981 HPV/Co-Test 1992 Cologuard 2007 Fecal Occult Blood Test 2007 Sigmoidoscopy 2007 *COPD SEVERITY VERIFIED BY PFT 09/05/2020 Albumin/Creatinine Ratio 08/23/2021 08/23/2020 Hepatitis B (3 of 3 - 19+ 3-dose series) 01/14/2022 11/19/2021, 11/13/2020 HbA1c 07/29/2022 01/28/2022, 08/31, 05/13/2021, Additional history exists Depression, Most Recent Score >= 10 (will fire each visit until score < 10) 11/19/2022 11/18/2022 COVID-19 Vaccine ( season) 2023 05/15/2021, 09/12/2020, 08/22/2020 DIABETES-EYE EXAM 07/18/2023 07/18/2022, 11/13/2020 Mammogram 07/29/2023 07/29/2022, 0407/2020, 08/30/2020, Additional history exists GFR 09/30/2023 09/29/2022, 06/03, 01/28/2022, Additional history exists Diabetic Foot Exam 11/19/2023 11/18/2022, 0 11/19/2021, 09/13/2020 Cervical Cancer Screening 12/19/2023 Pap Smear 12/19/2023 12/18/2020 O2 ASSESSMENT COMPLETED IN PAST YEAR FOR COPD 02/28/2024 02/27/2023 Lipid Panel 01/28/2027 01/28/2022, 08/31, 05/13/2021, Additional history exists Colonoscopy 07/10/2032 07/10/2022, 09/10/2020 Colorectal Cancer Screening 07/10/2032 Alpha-1 Antitrypsin Completed 09/26/2021 Pneumococcal Vaccine: Pediatrics (0 to 5 Years) and At-Risk Patients (6 to 64 Years) Completed 01/27/2022, 04/20/2018 Zoster Vaccines Completed 07/18/2022, 01/27/2022 Influenza Vaccine (FLU shot) Completed , 04/21/2020, 03/01/2020, Additional history exists GARDASIL-HPV IMMUNIZATION SERIES Aged Out No longer eligible based on patient's age to complete this topic MENINGOCOCCAL (MENACTRA/MENVEO) Aged Out No longer eligible based on patient's age to complete this topic documented as of this encounter Medical Devices Not on filedocumented as of this encounter Visit Diagnoses Diagnosis Acute URI- Primary Acute upper respiratory infections of unspecified site COPD, group D, by GOLD 2017 classification ([facility]) Type 2 diabetes mellitus with hemoglobin A1c goal of less than 7.0% ([facility]) Need for prophylactic vaccination and inoculation against influenza Lumbar radiculopathy Thoracic or lumbosacral neuritis or radiculitis, unspecified documented in this encounter Care Teams Freelance Court Stenographer Relationship Specialty Start Date End Date Mekhi Reyes DO [address] [place] [id number] PCP - General Internal Medicine 12/10/22 documented as of this encounter"
--- OUTSIDE RECORDS SUMMARY | 2023-04-10 08:55 | External Medical Summary | Summary of Care ---
Author Name Unknown Organization [facility] Address [address] [facility] [place] [address] Phone [phone] Care Team Providers Care Cloth Shrinking Tester Name Role Phone Mekhi Reyes Primary Care Provid er Reason for Visit * Reason Onset Date Comments Advice 01/27/2023 Encounter Details Date Type Department Care Team Description 01/27/2023 Telephone Interventional Pain Center, [facility] [address] [place] [phone] Juan M Borrero DO [address] [place] [phone] Advice Allergies No known active allergiesdocumented as of this encounter (statuses as of 01/27/2023) Medications Medication Sig Dispensed Refills Start Date End Date Status Vitamin D3 1.25 MG (47287 UT) Oral Capsule Take 1 Capsule by mouth in the morning. 0 Active Womens Multi Oral Capsule Take 1 Tablet by mouth daily. 0 Active D-Care Glucometer w/Device Kit Use as directed . Use to test BS; e11.9, may substitute for insurance coverage 1 Kit 0 10/14/2021 Active OneTouch Delica Lancets 30G Use to test blood sugar twice daily; e11.9 200 Each 3 10/14/2021 Active OneTouch Verio In Vitro Strip (Glucose Blood) Use to test blood sugar twice daily; e11.9 200 Strip 3 10/14/2021 Active inFLIXimab 100 MG Intravenous Solution Reconstituted Administer 800 mg intravenously every 8 weeks. 1 Each 0 01/27/2022 Active Trelegy Ellipta 100-62.5-25 MCG/ACT Aerosol Powder Breath Activated (Fluticasone-Umecli dinium-Vilanterol) Inhale 1 Puff by mouth in the morning. Rinse mouth after use. 60 Blister Dosing Unit 6 07/01/2022 Active Celecoxib 100 MG Oral Capsule (CeleBREX) Take 1 Capsule by mouth in the morning. for pain. 90 Capsule 1 10/22/2022 Active Atorvastatin Calcium 40 MG Oral Tablet (Lipitor)Indication s:Hyperlipidemia with target LDL less than 100 Take 1 Tablet by mouth in the morning. 90 Tablet 3 11/18/2022 Active buPROPion HCl ER (XL) 150 MG Oral Tablet Extended Release 24 Hour (Wellbutrin XL) Take 1 Tablet by mouth in the morning. 90 Tablet 3 11/18/2022 Active DULoxetine HCl 60 MG Oral Capsule Delayed Release Particles (Cymbalta) Take 1 Capsule by mouth in the morning. Do not cut, crush or chew. 90 Capsule 3 11/18/2022 Active Pantoprazole Sodium 40 MG Oral Tablet Delayed Release (Protonix) Take 1 Tablet by mouth in the morning. 90 Tablet 3 11/18/2022 Active Ipratropium-Albuter ol 0.5-2.5 (3) MG/3ML Inhalation Solution (Duoneb) Inhale 3 mL via nebulizer every 4 hours as needed for Shortness of Breath or Wheezing. 100 mL 2 11/18/2022 Active traZODone HCl 50 MG Oral Tablet (Desyrel)Indication s:Sleep disorder Take 1 Tablet by mouth every night at bedtime. 90 Tablet 3 11/18/2022 Active traMADol HCl 50 MG Oral Tablet (Ultram)Indications :DDD (degenerative disc disease), lumbar,Chronic pain syndrome Take 1 Tablet by mouth 2 times a day as needed for Pain, Severe. 60 Tablet 3 11/18/2022 Active Gabapentin 800 MG Oral Tablet (Neurontin) Take 1 Tablet by mouth in the morning and 1 Tablet at noon and 1 Tablet before bedtime. 270 Tablet 3 11/18/2022 Active predniSONE 20 MG Oral Tablet (Deltasone) 1 tab 3 times a day for 3 days, then 1 tab 2 times a day for 3 days, then 1 tab daily for 3 days 18 Tablet 0 12/16/2022 Active Albuterol Sulfate HFA 108 (90 Base) MCG/ACT Inhalation Aerosol SolutionIndications :COPD exacerbation (HCC) Inhale 2 Puffs by mouth every 6 hours as needed for Shortness of Breath or Wheezing. 8.5 g 5 12/16/2022 Active Spacer/Aero-Holding Chambers Device Use with inhaler. 1 Each 0 12/16/2022 Active Hospital, Clinic, or Other Facility Administered Medication Ordered Dose Route Frequency Start Date End Date Status Albuterol Sulfate (Proventil) (2.5 MG/3ML) 0.083% inhalation solution 2.5 mgIndications:Screening for respiratory condition 2.5 mg NEBULIZER ONCE PRN 04/01/2022 Active documented as of this encounter (statuses as of 01/27/2023) Active Problems Problem Noted Date Colonic stricture [...] disorder 10/01/2020 Bilateral lower extremity edema 09/04/19 21 S/P lumbar fusion 09/03/2020 Chronic bilateral low [...] as of this encounter (statuses as of 01/27/2023) Resolved Problems Problem Noted Date Resolved Date [...] as of this encounter (statuses as of 01/27/2023) Immunizations Name Administration Dates Next Due COVID-19 mRNA, LNP-s, No Pre serve, 2-Dose Series ([employer]) 05/15/2021,09/12/2020,08/22/2020 Hepatitis B, 20+ yrs 11/19/2021,05/20/20 21(Deferred: Contraindication),11/13/2020 12/13/2020 Pneumococcal Conjugate Vacc, 13 Valent (Prevnar) 04/20/2018 Pneumococcal Conjugate Vacci ne, 20-valent ([id number]) 01/27/2022 Seasonal Influenza Virus Vac cine, Unspecified [...] on file documented as of this encounter Miscellaneous Notes * Telephone Encounter - Tabitha Zhang LPN - 01/27/2023 4:01 PM EDT Pt aware * Telephone Encounter - Tabitha Zhang LPN - 01/27/2023 11:29 AM EDT States pain seems to be aggravated by PT and would like to know if she should stop or continue until f/u appt? documented in this encounter Plan of Treatment Upcoming Encounters Date Type Specialty Care Team Description 01/27/2023 Pharmacy Pharmacy Pharmacist2, [facility] [address] [place] [address] DDD (degenerative disc disease), lumbar* 02/26/2023 Telemedicine Pain Medicine Day, [facility] [address] [place] [address] 03/20/2023 Office Visit Family Medicine Mekhi Reyes DO [address] [place], [place] [phone] Health Maintenance Due Date Last Done Comments DTaP,Tdap,and Td Vaccines (1 - Tdap) 1981 HPV/Co-Test 1992 Cologuard 2007 Fecal Occult Blood Test 2007 Sigmoidoscopy 2007 *COPD SEVERITY VERIFIED BY PFT 09/05/2020 COVID-19 Vaccine (4 - Pfizer risk series) 07/10/2021 05/15/2021, 09/12/2020, 08/22/2020 Albumin/Creatinine Ratio 08/23/2021 08/23/2020 Hepatitis B (3 of 3 - 19+ 3-dose series) 01/14/2022 11/19/2021, 11/13/2020 HbA1c 07/29/2022 01/28/2022, 04/2 12/2021, 05/13/2021, Additional history exists Depression, Most Recent Score >= 10 (will fire each visit until score < 10) 11/19/2022 11/18/2022 Influenza Vaccine (FLU shot) (#1) 2023 04/21/2020, 03/01/2020, 02/08/2019, Additional history exists DIABETES-EYE EXAM 07/18/2023 07/18/2022, 11/13/2020 Mammogram 07/29/2023 07/29/2022, 04/0 07/2020, 08/30/2020, Additional history exists GFR 09/30/2023 09/29/2022, 06/03, 01/28/2022, Additional history exists DIABETES-FOOT EXAM 11/19/2023 11/18/2022, 0 11/19/2021, 09/13/2020 Cervical Cancer [...] Not on filedocumented as of this encounter Care Teams Cloth Shrinking Tester Relationship Specialty Start Date End Date Mekhi Reyes, [address] [address] PCP - General Internal Medicine 12/10/22 documented as of this encounter
--- OUTSIDE RECORDS SUMMARY | 2023-04-10 08:55 | External Medical Summary | Summary of Care ---
Author Name Unknown Organization [facility] Address [address] [place] [address] Phone [phone] Care Team Providers Care Resource Recovery Specialist Name Role Phone Mekhi Reyes Primary Care Provid er Reason for Visit * Reason Comments Acute Patient is here toda y due to a recent fall. Patient states she hit her left side when she fell and since then has had more trouble breathing then normal. Patient states she is also having sinus drainage, cough that has been worsening and tightness in the chest for the last two weeks. Patient states she just finished the antibiotics last night and she feels worse then before. Encounter Details Date Type Department Care Team Description 02/27/2023 Office Visit [address] [id number] Erica Magana PA-C [address] [place] [id number] COPD exacerbation (HCC)*; Acute left flank pain; Bradycardia Allergies No known active allergiesdocumented as of this encounter (statuses as of 02/27/2023) Medications Medication Sig Dispensed Refills Start Date End Date Status Vitamin D3 1.25 MG (43718 UT) Oral Capsule Take 1 Capsule by [...] 8 weeks. 1 Each 0 01/27/2022 Active Celecoxib 100 MG Oral Capsule (CeleBREX) Take 1 Capsule by mouth in the morning. for pain. 90 Capsule 1 10/22/2022 Active Atorvastatin Calcium 40 MG Oral Tablet (Lipitor)Indication s:Hyperlipidemia with target LDL less than 100 Take 1 Tablet by mouth in the morning. 90 Tablet 3 11/18/2022 Active Additional Information Patient taking differently:40 mg [...] mouth every night at bedtime. 90 Tablet 11/18/2022 Active traMADol HCl 50 MG Oral Tablet (Ultram)Indications :DDD (degenerative disc disease), lumbar,Chronic pain syndrome Take 1 Tablet by mouth 2 times a day as needed for Pain, Severe. 60 Tablet 3 11/18/2022 Active Gabapentin 800 MG Oral Tablet (Neurontin) Take 1 Tablet by mouth in the morning and 1 Tablet at noon and 1 Tablet before bedtime. 270 Tablet 3 11/18/2022 3 Active Albuterol Sulfate HFA 108 (90 Base) MCG/ACT Inhalation Aerosol SolutionIndications :COPD exacerbation (HCC) Inhale 2 Puffs by mouth every 6 hours as needed for Shortness of Breath or Wheezing. 8.5 g 5 12/16/2022 Active Spacer/Aero-Holding Chambers Device Use with inhaler. 1 Each 0 12/16/2022 Active CPAP every night at bedtime. 0 Active Amoxicillin-Pot Clavulanate 875-125 MG Oral Tablet (Augmentin)Indicati ons:Sinobronchitis, COPD exacerbation (HCC) Take 1 Tablet by mouth in the morning and 1 Tablet before bedtime. Do all this for 10 days. 20 Tablet 0 02/17/2023 3 Active Trelegy Ellipta 100-62.5-25 MCG/ACT Aerosol Powder Breath Activated (Fluticasone-Umecli dinium-Vilanterol) INHALE 1 PUFF BY MOUTH IN THE MORNING and rinse mouth 60 Blister Dosing Unit 5 02/20/2023 Active predniSONE 20 MG Oral Tablet (Deltasone)Indicati ons:COPD exacerbation (HCC) Take 3 tabs for 3 days, 2 tabs for 3 days, 1 tab for 3 days, 1/2 tab for 3 days 20 Tablet 0 02/27/2023 Active Doxycycline Hyclate 100 MG Oral CapsuleIndications: COPD exacerbation (HCC) Take 1 Capsule by mouth in the morning and 1 Capsule before bedtime. Do all this for 7 days. Take for 7 days. 14 Capsule 0 02/27/2023 3 Active Hospital, Clinic, or Other Facility Administered Medication Ordered Dose Route Frequency Start Date End Date Status Albuterol Sulfate (Proventil) (2.5 MG/3ML) 0.083% inhalation solution 2.5 mgIndications:Screening for respiratory condition 2.5 mg NEBULIZER ONCE PRN 04/01/2022 Active documented as of this encounter (statuses as of 02/27/2023) Active Problems Problem Noted Date Colonic stricture [...] as of this encounter (statuses as of 02/27/2023) Resolved Problems Problem Noted Date Resolved Date [...] as of this encounter (statuses as of 02/27/2023) Immunizations Name Administration Dates Next Due COVID-19 mRNA, LNP-s, No Pre serve, 2-Dose Series (XOXO Kitchen) 05/15/2021,09/12/2020,08/22/2020 Hepatitis B, 20+ yrs 11/19/2021,05/20/20 21(Deferred: Contraindication),11/13/2020 12/13/2020 Pneumococcal Conjugate Vacc, 13 Valent (Prevnar) 04/20/2018 Pneumococcal Conjugate Vacci ne, 20-valent ([id number]) 01/27/2022 Seasonal Influenza Virus Vac cine, Unspecified [...] Sign Reading Time Taken Comments Blood Pressure 138/82 02/27/2023 10:51 AM EDT Pulse 96 02/27/2023 3:44 PM EDT Temperature 36.3 C (97.4 F) 02/27/2023 10:51 AM E DT Respiratory Rate 18 02/27/2023 10:51 AM EDT Oxygen Saturation 97% 02/27/2023 10:51 AM EDT Inhaled Oxygen Concentration - - Weight 83.1 kg (183 lb 4.8 oz) 02/27/2023 10:51 AM EDT Height - - Body Mass Index 29.59 07/01/2022 10:19 AM EST documented in this encounter Progress Notes * Michell Mann LPN - 02/27/2023 1:31 PM EDT Provider to address: EKG Reason for Call: Acute (Patient is here today due to a recent fall. Patient states she hit her leftside when she fell and since then has had more trouble breathing then normal. Patient states she isalso having sinus drainage, cough that has been worsening and tightness in the chest for the last two weeks. Patient states she just finished the antibiotics last night and she feels worse then before. ) Contact: Telephone Call Contact Type: Follow-up Outcome: Attempted to call patient to come back in to have an EKG done per Erica Magana PA-C due to low HR at visit today. No answer from patient, did leave a message. Total Time including non face to face (minutes): 5 * Erica Magana PA-C - 02/27/2023 1:26 PM EDT Images from the original note were not included. History of Present Illness Krystni Jaffe is a 62 year old female that presents for Acute (Patient is here today due to a recent fall. Patient states she hit her left side when she fell and since then has had more trouble breathing then normal. Patient states she is also having sinus drainage, cough that has been worsening and tightness in the chest for the last two weeks. Patient states she just finished the antibiotics l ast night and she feels worse then before. ) Krystin Jaffe is a 62 year old female who presents to the [facility] regarding cough and left flank pain. Patient stated about 3-4 weeks ago she started with increased congestion and cough. Known PMH of COPD. Former smoker. Was seen here in the office. Treated with prednisone and Augmentin. Patient stated while on prednisone she felt like she was getting better. However, as soon as she stopped prednisone the symptoms returned and worsened. Now currently experiencing nasal congestion, runny nose and cough. Cough is productive. At times feels short of breath. Using inhales as directed and nebulizer every 4 hours. Denied headache and dizziness. Patient stated she also fell 4 days ago. Was going down steps when she slipped and fell onto left side. Developed a sudden onset of pain located left flank without radiation. Certain movements and coughing aggravates the pain. Did start with diarrhea last night but also on Augmentin. Denied nausea,vomiting, blood in stool, black stool and hematuria. Physical Exam Vitals: 02/27/23 1051 02/27/23 1544 Temp: 36.3 C (97.4 F) Pulse: 41 96 Resp: 18 SpO2: 97% BP: 138/82 BP Readings from Last 3 Encounters: 02/27/23 138/82 02/17/23 127/80 01/01/23 136/74 Physical Exam Vitals and nursing note reviewed. Constitutional: General: She is not in acute distress. Appearance: Normal appearance. She is not ill-appearing, toxic-appearing or diaphoretic. HENT: Head: Normocephalic and atraumatic. Right Ear: Tympanic membrane, ear canal and external ear normal. Left Ear: Tympanic membrane, ear canal and external ear normal. Nose: Congestion present. Mouth/Throat: Lips: [place]. Mouth: Mucous membranes are moist. Eyes: General: No scleral icterus. Extraocular Movements: Extraocular movements intact. Conjunctiva/sclera: Conjunctivae normal. Cardiovascular: Rate and Rhythm: Normal rate and regular rhythm. Heart sounds: Normal heart sounds. No murmur heard. Pulmonary: Effort: Pulmonary effort is normal. No respiratory distress. Breath sounds: No stridor. Rhonchi present. No wheezing or rales. Abdominal: Tenderness: There is no right CVA tenderness, left CVA tenderness, guarding or rebound. Negative signs include Phelan's sign and McBurney's sign. Comments: Lateral left flank tenderness Neurological: Mental Status: She is alert. I have reviewed the following results: EKG, CBC, and BMP Assessment and Plan COPD exacerbation (HCC) - predniSONE 20 MG Oral Tablet (Deltasone); Take 3 tabs for 3 days, 2 tabs for 3 days, 1 tab for 3 days, 1/2 tab for 3 days - Doxycycline Hyclate 100 MG Oral Capsule; Take 1 Capsule by mouth in the morning and 1 Capsule before bedtime. Do all this for 7 days. Take for 7 days. - Mucinex Acute left flank pain - I feel this is musculoskeletal exacerbated by harsh persistent coughing. Ice/Heat. Rest. Avoid twisting, bending and lifting. If symptom worsen or you develop ecchymosis, blood or black stools or hematuria return to office, Urgent Care or ED. Bradycardia - EKG; Future - I feel this is more of a date entry error on nurses behalf. - Recheck of HR was 96 and EKG showed normal sinus rhythm. Wrap-Up Follow Up: Return if symptoms worsen or fail to improve, for as scheduled. | For: as scheduled Time: I spent a total of 20-29 minutes (exact time 20 mins) on the date of service in preparation, delivery, and documentation of the care provided to Krystin Jaffe excluding any time spent in the performance of separately billed services. documented in this encounter Nursing Notes * Michell Mann LPN - 02/27/2023 10:54 AM EDT The patient has been properly identified by confirmation of name and date of . Chief Complaint Patient presents with Acute Patient is here today due to a recent fall. Patient states she hit her left side when she fell and since then has had more trouble breathing then normal. Patient states she is also having sinus drainage, cough that has been worsening and tightness in the chest for the last two weeks. Patient statesshe just finished the antibiotics last night and she feels worse then before. documented in this encounter Plan of Treatment Upcoming Encounters Date Type Specialty Care Team Description 2023 Office Visit Family Medicine Mekhi Reyes DO [address] [place] [address] 08/10/2023 Office Visit Dermatology Everton Mays PA-C [address] [facility] [place] [address] Scheduled Orders Name Type Priority Associated Diagnoses Orde r Schedule EKG EKG Routine Bradycardia Expected: 02/27/2023 (Approximate), Expi res: 03/29/2024 Scheduled Procedures Name Priority Associated Diagnoses Date/Ti me INJECTION SPINE LUMBAR OR SACRAL Lumbar radiculopathy Health Maintenance Due Date Last Done Comments [...] COPD 02/28/2024 02/27/2023 Lipid Panel 01/28/2027 01/28/2022, 2 12/2021, 05/13/2021, Additional history exists Colonoscopy 07/10/2032 07/10/2022, [...] (HCC)- Primary Obstructive chronic bronchitis with exacerbation Acute left flank pain Abdominal pain, unspecified site Bradycardia Other specified cardiac dysrhythmias documented in this encounter Care Teams Resource Recovery Specialist Relationship Specialty Start Date End Date Mekhi Reyes, [address] [address] PCP - General Internal Medicine 12/10/22 documented as of this encounter"
--- OUTSIDE RECORDS SUMMARY | 2023-04-10 08:55 | External Medical Summary | Summary of Care ---
Author Name Unknown Organization [facility] Address [address] [facility] [place] [address] Phone [phone] Care Team Providers Care Mill Turner Name Role Phone Bessiebeverley Mekhi Sr Primary Care Provid er Encounter Details Date Type Department Care Team Description 02/26/2023 Telemedicine [facility], [facility] [address] [place] [address] Brianna Low PA-C [address] [place] [address] Lumbar radicular pain*; Failed back syndrome of lumbar spine Allergies No known active allergiesdocumented as of this encounter (statuses as of 02/26/2023) Medications Medication Sig Dispensed Refills Start Date End Date Status Vitamin D3 1.25 MG (50157 UT) Oral Capsule Take 1 Capsule by [...] 60 Blister Dosing Unit 5 02/20/2023 Active Hospital, Clinic, or Other Facility Administered Medication Ordered Dose Route Frequency Start Date End Date Status Albuterol Sulfate (Proventil) (2.5 MG/3ML) 0.083% inhalation solution 2.5 mgIndications:Screening for respiratory condition 2.5 mg NEBULIZER ONCE PRN 04/01/2022 Active documented as of this encounter (statuses as of 02/26/2023) Active Problems Problem Noted Date Colonic stricture [...] as of this encounter (statuses as of 02/26/2023) Resolved Problems Problem Noted Date Resolved Date [...] as of this encounter (statuses as of 02/26/2023) Immunizations Name Administration Dates Next Due COVID-19 mRNA, LNP-s, No Pre serve, 2-Dose Series (Pfizer) 05/15/2021,09/12/2020,08/22/2020 Hepatitis B, 20+ yrs 11/19/2021,05/20/20 21(Deferred: Contraindication),11/13/2020 12/13/2020 Pneumococcal Conjugate Vacc, 13 Valent (Prevnar) 04/20/2018 Pneumococcal Conjugate Vacci ne, 20-valent ([id number]) 01/27/2022 Seasonal Influenza Virus Vac cine, Unspecified [...] on file documented as of this encounter Progress Notes * Brianna Low PA-C - 02/26/2023 11:23 AM EDT Name: Krystin Jaffe Date: 02/26/2023 After connecting to the patient via telephone, the patient was identified by name and date of . Patient was then informed that this was a telephone call only visit. The patient agreed to participate. Visit Disposition: Routine follow-up Total call duration nine minutes. HPI: Krystin Jaffe is a 62 year old female known to the Pain Management clinic presents for follow up after left L2/3 interlaminar epidural steroid injection on 01/01. Admits 60% pain reduction, questions if repeat injection could be considered. Locates pain L > R low back buttock that radiatesto proximal anterior thigh, does not extend to knee. Rates pain 7/10 on average, increases to 10/10and is constant in nature. Associated LE paresthesia. Denies progressive LE weakness. Denies bowel/bladder dysfunction. Using gabapentin, cymbalta, tramadol, celebrex for pain relief. Significant hx L3-S1 laminectomy with posterior instrumented fusion with L4/5, L5/S1 discectomy. Enrolled in PT at [facility] twice weekly with mild to moderate relief, recommend to continue. Xrays of procedure were reviewed. History: Past Medical History: Diagnosis Date NO KNOWN PROBLEMS Past Surgical History: Procedure Laterality Date INFORMATION Lumbar surgery X 4 INJECT DX/THER SUBSTANCE INTERLAMINAR LUMBAR/SACRAL W IMAGE GUIDE 01/01/2023 INJECTION SPINE LUMBAR OR SA[facility]AL [facility]/CUT OVIDUCT(S) Tubal Ligation,Non Laparoscopic REMOVAL OF APPENDIX Appendectomy REMOVE TONSILS & ADENOIDS, UNDER 12 T & A, age<12 REPAIR INGUINAL HERNIA, UNDER AGE 5 Inguinal Hernia Repair,6mo-5yr, Right Current Outpatient Medications Medication Sig Dispense Refill Vitamin D3 1.25 MG (39374 UT) Oral Capsule Take 1 Capsule by mouth in the morning. Womens Multi Oral Capsule Take 1 Tablet by mouth daily. D-Care Glucometer w/Device Kit Use as directed . Use to test BS; e11.9, may substitute for insurance coverage 1 Kit 0 OneTouch Delica Lancets 30G Use to test blood sugar twice daily; e11.9 200 Each 3 OneTouch Verio In Vitro Strip (Glucose Blood) Use to test blood sugar twice daily; e11.9 200 Strip 3 inFLIXimab 100 MG Intravenous Solution Reconstituted Administer 800 mg intravenously every 8 weeks.1 Each Celecoxib 100 MG Oral Capsule (CeleBREX) Take 1 Capsule by mouth in the morning. for pain. 90 Capsule 1 Atorvastatin Calcium 40 MG Oral Tablet (Lipitor) Take 1 Tablet by mouth in the morning. 90 Tablet 3 buPROPion HCl ER (XL) 150 MG Oral Tablet Extended Release 24 Hour (Wellbutrin XL) Take 1 Tablet by mouth in the morning. 90 Tablet 3 DULoxetine HCl 60 MG Oral Capsule Delayed Release Particles (Cymbalta) Take 1 Capsule by mouth in the morning. Do not cut, crush or chew. 90 Capsule 3 Pantoprazole Sodium 40 MG Oral Tablet Delayed Release (Protonix) Take 1 Tablet by mouth in the morning. 90 Tablet 3 Ipratropium-Albuterol 0.5-2.5 (3) MG/3ML Inhalation Solution (Duoneb) Inhale 3 mL via nebulizer every 4 hours as needed for Shortness of Breath or Wheezing. 100 mL 2 traZODone HCl 50 MG Oral Tablet (Desyrel) Take 1 Tablet by mouth every night at bedtime. 90 Tablet 3 traMADol HCl 50 MG Oral Tablet (Ultram) Take 1 Tablet by mouth 2 times a day as needed for Pain, Severe. 60 Tablet 3 Gabapentin 800 MG Oral Tablet (Neurontin) Take 1 Tablet by mouth in the morning and 1 Tablet at noon and 1 Tablet before bedtime. 270 Tablet 3 Albuterol Sulfate HFA 108 (90 Base) MCG/ACT Inhalation Aerosol Solution Inhale 2 Puffs by mouth every 6 hours as needed for Shortness of Breath or Wheezing. 8.5 g 5 Spacer/Aero-Holding Chambers Device Use with inhaler. 1 Each 0 CPAP every night at bedtime. Amoxicillin-Pot Clavulanate 875-125 MG Oral Tablet (Augmentin) Take 1 Tablet by mouth in the morning and 1 Tablet before bedtime. Do all this for 10 days. 20 Tablet 0 Trelegy Ellipta 100-62.5-25 MCG/ACT Aerosol Powder Breath Activated (Qsseilgpjgs-Rlvqrbwyzwfx-Srfshvztgm) INHALE 1 PUFF BY MOUTH IN THE MORNING and rinse mouth 60 Blister Dosing Unit 5 Current Facility-Administered Medications Medication Dose Route Frequency Provider Last Rate Last Admin Albuterol Sulfate (Proventil) (2.5 MG/3ML) 0.083% inhalation solution 2.5 mg 2.5 mg Nebulizer Once PRN Chel Ozuna PA-C Review of patient's allergies indicates: No Known Allergies ASSESSMENT: Lumbar radicular pain S/p L3-S1 laminectomy with posterior instrumented fusion with L4/5, L5/S1 discectomy RECOMMENDATION: Moderate relief with MIKE. Discussed repeat injection using fluoroscopy. Risks including, but not limited to, bleeding, infection, worsening pain, failure to alleviate pain, nerve injury and possible steroid side effects were reviewed. 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 Follow up eight weeks after procedure. Consider SCS if injection become ineffective. Total call duration nine minutes. Brianna Low PA-C 02/26/2023 documented in this encounter Plan of Treatment Upcoming Encounters Date Type Specialty Care Team Description 02/27/2023 Office Visit Family Medicine Erica Magana PA-C [address] [facility] [place] [address] 2023 Office Visit [facility] [address] Scheduled Orders Name Type Priority Associated Diagnoses Orde r Schedule INJECT DX/THER SUBSTANCE INTERLAMINAR LUMBAR/SACRAL W IMAGE GUIDE Procedures Routine Lumbar radicular pain Failed back syndrome of lumbar spine Expected: 03/12/2023, Expires: 03/28/2024 Scheduled Procedures Name Priority Associated Diagnoses Date/Ti [...] series) 01/14/2022 11/19/2021, 11/13/2020 HbA1c 07/29/2022 01/28/2022, 04/12/2021, 05/13/2021, Additional history exists Depression, Most Recent [...] ASSESSMENT COMPLETED IN PAST YEAR FOR COPD 02/18/2024 02/17/2023 Lipid Panel 01/28/2027 01/28/2022, 04/2 12/2021, 05/13/2021, Additional history exists Colonoscopy 07/10/2032 [...] as of this encounter Visit Diagnoses Diagnosis Lumbar radicular pain- Primary Thoracic or lumbosacral neuritis or radiculitis, unspecified Failed back syndrome of lumbar spine Postlaminectomy syndrome, lumbar region documented in this encounter Care Teams Mill Turner Relationship Specialty Start Date End Date Mekhi Reyes, [address] [place] [id number] PCP - General Internal Medicine 12/10/22 documented as of this encounter
--- OUTSIDE RECORDS SUMMARY | 2023-04-10 08:55 | External Medical Summary | Summary of Care ---
Author Name Unknown Organization [facility] Address [address] [place] [address] Phone [phone] Care Team Providers Care Button Buttonhole Marker Name Role Phone Mekhi Reyes DO Primary Care Provid er Reason for Referral * Precert (Within 10 days (routine)) - Pending Review Specialty Diagnoses / Procedures Referred By Leif ibrahim Referred To Contact Radiology Diagnoses COPD, group D, by GOLD 2017 classification (HCC) Interstitial pulmonary disease (HCC) Shortness of breath Procedures CT CHEST WO CONTRAST Mekhi Reyes DO [address] [place] [id number] Referral ID Status Reason Start Date Expiration Date V isits Requested Visits Authorized [id number] Pending Review 2023 999 [id number] Reason for Visit * Reason Comments Status Check New to provider jonathan stacy-- former Dr. Samayoa patientOngoing SOB and cough following URI-- was seen twice here for symptoms.Also, cat scratch right side of chin 2 weeks ago. Using Neosporin. Encounter Details Date Type Department Care Team (Latest Contact Info) Description 2023 8:00 AM EDT Office Visit [facility] [address] [place] [id number] Mekhi Reyes DO [address], [place] [phone] Cat scratch of cheek, initial encounter*; COPD, group D, by GOLD 2017 classification ([facility]); Type 2 diabetes mellitus with hemoglobin A1c goal of less than 7.0% ([facility]); Interstitial pulmonary disease ([facility]); Hyperlipidemia with target LDL less than 100; Chronic pain syndrome; Chronic kidney disease, stage 3a ([facility]); Crohn's disease of colon with complication ([facility]); Shortness of breath; Chronic bilateral low back pain without sciatica Allergies No known active allergiesdocumented as of this encounter (statuses as of 2023) Medications Medication Sig Dispensed Refills Start Date End Date Status Vitamin D3 1.25 MG (41517 UT) Oral Capsule Take 1 Capsule by mouth in the morning. 0 Active Womens Multi Oral Capsule Take 1 Tablet by mouth daily. 0 Active D-Care Glucometer w/Device Kit Use as directed . Use to test BS; e11.9, may substitute for insurance coverage 1 Kit 0 2 Active Perlstein LabTouch Delica Lancets 30G Use to test blood sugar twice daily; e11.9 200 Each 3 2 Active OneTouch Verio In Vitro Strip (Glucose Blood) Use to test blood sugar twice daily; e11.9 200 Strip 3 2 Active inFLIXimab 100 MG Intravenous Solution Reconstituted Administer 800 mg intravenously every 8 weeks. 1 Each 0 2 Active Atorvastatin Calcium 40 MG Oral Tablet (Lipitor)Indication s:Hyperlipidemia with target LDL less than 100 Take 1 Tablet by mouth in the morning. 90 Tablet 3 3 Active Additional Information Patient taking differently:40 mg [...] the morning. 90 Tablet 3 3 Active Ipratropium-Albuter ol 0.5-2.5 (3) MG/3ML Inhalation [...] or Wheezing. 8.5 g 5 3 Active Spacer/Aero-Holding Chambers Device Use with inhaler. 1 Each 0 3 Active CPAP every night at bedtime. 0 Active Trelegy Ellipta 200-62.5-25 MCG/ACT Aerosol Powder Breath Activated (Fluticasone-Umecli dinium-Vilanterol)I ndications:COPD, group D, by GOLD 2017 classification ([facility]) Inhale 1 Puff by mouth daily. 60 Blister Dosing Unit 5 3 Active Benzonatate 100 MG Oral Capsule (Tessalon Perles)Indications: Acute URI Take 1 Capsule by mouth 3 times a day as needed for Cough. Do not cut, crush, or chew. 50 Capsule 1 3 Active guaiFENesin ER 600 MG Oral Tablet Extended Release 12 Hour (Mucinex)Indication s:Acute URI Take 1 Tablet by mouth 2 times a day as needed for Congestion. Take with plenty of water. Do not cut, crush or chew 40 Tablet 2 3 Active Celecoxib 100 MG Oral Capsule (CeleBREX) Take 1 capsule by mouth in the morning for pain. 90 Capsule 1 11/02/202 3 Active Sulfamethoxazole-Tr imethoprim 800-160 MG Oral Tablet (Bactrim DS)Indications:Cat scratch of cheek, initial encounter Take 1 Tablet by mouth in the morning and 1 Tablet before bedtime. Do all this for 7 days. Until gone. 14 Tablet 0 3 04/10/20 23 Active predniSONE 20 MG Oral Tablet (Deltasone)Indicati ons:Sinobronchitis, COPD exacerbation (HCC) Take 2 Tablets by mouth in the morning for 5 days. 10 Tablet 0 3 04/03/20 23 Discontinu ed(Medicat ion List Clean Up) Amoxicillin-Pot Clavulanate 875-125 MG Oral Tablet (Augmentin)Indicati ons:Sinobronchitis, COPD exacerbation (HCC) Take 1 Tablet by mouth in the morning and 1 Tablet before bedtime. Do all this for 10 days. 20 Tablet 0 3 04/03/20 23 Discontinu ed(Medicat ion/Dose Changed) Doxycycline Hyclate 100 MG Oral CapsuleIndications: COPD exacerbation (HCC) Take 1 Capsule by mouth in the morning and 1 Capsule before bedtime. Do all this for 7 days. Take for 7 days. 14 Capsule 0 3 04/03/20 23 Discontinu ed(Medicat ion/Dose Changed) Hospital, Clinic, or Other Facility Administered Medication Ordered Dose Route Frequency Start Date End Date Status Albuterol Sulfate (Proventil) (2.5 MG/3ML) 0.083% inhalation solution 2.5 mgIndications:Screening for respiratory condition 2.5 mg NEBULIZER ONCE PRN 04/01/2022 Active Albuterol Sulfate (Proventil) (2.5 MG/3ML) 0.083% inhalation solution 2.5 mgIndications:COPD, group D, by GOLD 2017 classification ([facility]),Interstitial pulmonary disease (HCC),Shortness of breath 2.5 mg NEBULIZER ONCE PRN 2023 04/02/2024 Active documented as of this encounter (statuses as of 2023) Active Problems Problem Noted Date Diagnosed Date Colonic stricture 11/18/2022 Leiomyoma of uterus 11/18/2022 Leukocytosis 11/18/2022 Ovarian cyst 11/18/2022 Pneumonia due to COVID-19 virus 11/18/2022 Recurrent syncope 11/18/2022 UTI (urinary tract infection) 11/18/2022 Tubular adenoma of colon 11/18/2022 Tachycardia 11/18/2022 COPD, group D, by GOLD 2017 classification 09/08 Overview: Per COPD GOLD Classification DDD (degenerative disc disease), lumbar 08/16/19 Chronic pain syndrome 08/15/2022 Achilles tendon pain 08/15/2022 Overweight (BMI 25.0-29.9) 11/19/2021 Crohn's disease of colon with complication 07/26 S/P partial resection of colon 07/26/2021 Interstitial pulmonary disease 07/15/2021 Crohn's disease 03/05/2021 Sleep disorder 10/01/2020 Bilateral lower extremity edema 09/03/2020 S/P lumbar fusion 09/03/2020 Chronic bilateral low back pain without sciatica 09/03/2020 Hip pain, left 09/03/2020 Hypertension goal BP (blood pressure) < 140/90 0 09/03/2020 Mood disorder 09/03/2020 Hyperlipidemia with target LDL less than 100 09/2020 Type 2 diabetes mellitus wit h hemoglobin A1c goal of less than 7.0% 08/23/2020 Hemarthrosis of ankle and foot 11/16/2018 Other screening mammogram 01/18/2018 Enthesopathy of knee 12/22/2017 Sciatica 11/19/2017 Encounter for screening for malignant neoplasm o f colon 08/20/2017 Generalized anxiety disorder 02/12/2017 Malaise and fatigue 02/12/2017 documented as of this encounter (statuses as of 2023) Resolved Problems Problem Noted Date Diagnosed Date Resolved Date TERMINATED MEDICATION USAGE AGREEMENT 02/17/2022 07/18/2022 Chronic use of opiate for therapeutic purpose 01/28/2008/15/2022 COPD, group C, by GOLD 2017 classification 12/09/2021 09/11/2022 Overview: Per COPD GOLD Classification Chronic kidney disease, stage 3a 07/15/2021 08/15/2022 Overview: Per CKD protocol Diabetes mellitus with stage 3 chronic kidney disease 07/15/2021 08/15/2022 Type 2 diabetes mellitus wit h stage 3a chronic kidney disease 06/10/2021 08/15/2022 Overview: Per CKD protocol Diabetes mellitus with stage 3 chronic kidney disease 05/13/2021 06/13/2021 Overview: Per CKD protocol Crohn's disease of small int estine without complications 12/11/2020 01/27/2022 Controlled substance agreement signed 12/09/2020 02/17/2022 Stage 3a chronic kidney disease 09/03/2020 05/16/2021 Overview: Per CKD protocol Chronic obstructive pulmonary disease 09/03/2020 12/12/2021 Overview: Per COPD GOLD Classification documented as of this encounter (statuses as of 2023) Immunizations Name Administration Dates Next Due COVID-19 mRNA, LNP-s, No Pre serve, 2-Dose Series (Qualys) 05/15/2021,09/12/2020,08/22/2020 Hepatitis B, 20+ yrs 11/19/2021,05/20/20 21(Deferred: Contraindication),11/13/2020 12/13/2020 Pneumococcal Conjugate Vacc, 13 Valent (Prevnar) 04/20/2018 Pneumococcal Conjugate Vacci ne, 20-valent ([id number]) 01/27/2022 SEASONAL INFLUENZA, PF, 6 M & [...] Tobacco: Former Cigarettes 2 Smokeless Tobacco: Never Tobacco Cessation:Counseling Given: Not Answered Alcohol Use Standard Drinks/Week Comments No 0 (1 standard drink = 0.6 oz pur e alcohol) PHQ-2 Answer Date Recorded PHQ Adult Total Score 18 11/18/2022 Hunger Vital Sign Answer Date Recorded Within the past 12 months, y ou worried that your food would run out before you got the money to buy more. Never true 08/16/19 23 Within the past 12 months, t he food you bought just didn't last and you didn't have money to get more. Never true 08/15/2022 Sex and Gender Information Value Date Recorded Sex Assigned at Female 08/23/2020 8:55 AM EDT Gender Identity Female 08/23/2020 8:55 AM EDT Sexual Orientation Straight 08/23/2020 8: 55 AM EDT Job Start Date Occupation Industry Not on file Not on file Not on file documented as of this encounter Last Filed Vital Signs Vital Sign Reading Time Taken Comments Blood Pressure 110/72 2023 7:58 AM EDT Pulse 76 2023 7:58 AM EDT Temperature 37.2 C (99 F) 2023 7:58 AM EDT Respiratory Rate 20 2023 7:58 AM EDT Oxygen Saturation 92% 2023 7:58 AM EDT Inhaled Oxygen Concentration - - Weight 81.8 kg (180 lb 6.4 oz) 2023 7:58 A M EDT Height - - Body Mass Index 29.12 07/01/2022 10:19 AM EST documented in this encounter Progress Notes * Mekhi Reyes, - 2023 8:02 AM EDT Subjective Krystin Jaffe is a 63 year old female. Chief Complaint Patient presents with Status Check New to provider today-- former Dr. Samayoa patient Ongoing SOB and cough following URI-- was seen twice here for symptoms. Also, cat scratch right side of chin 2 weeks ago. Using Neosporin. HPI: Patient presents office for routine follow-up. First time in consultation with myself as PCP. Is a former patient of Dr. Samayoa in our office. Previous documentation including notes, labs, radiographic studies personally reviewed. Medication list reviewed. Patient has history of COPD. Also possible diagnosis of interstitial lung disease. Had been seen inour office for possible COPD flare, URI symptoms twice in January, once in mid March for possible COPD flare, URI symptoms. Initially treated with Augmentin/prednisone. On 2nd occasion was re-treated with doxycycline/prednisone. On 3rd occasion was treated with symptomatic care and referred to pulmonology. Her Trelegy Ellipta at that time was increased to the 200 mcg dosage. Is continuing on 1 puff daily. Also has nebulizer to use at home. States still having some cough. Worse at night. Notmuch mucus production. No fever or chills. Does feel occasional wheezing. Does feel that inhaler helps. Patient has history of chronic back pain related to spondylosis, states has had 5 total back surgeries. Most recently has been following with pain medicine. Already had 1 epidural injection and has asecond injection scheduled in May. They also have her doing physical therapy twice weekly. States sometimes difficult due to her chronic pain but unsure if helping. Has been giving good effort per therapy notes. No saddle anesthesia, incontinence or cord compressive symptoms Has type 2 diabetes mellitus, associated CKD 3A. Not currently on diabetic medications. Last A1c was 6.2 in December 2021 but does have some routine labs coming up. Ordered by prior PCP. Up-to-date onfoot and eye exams. PMH: Patient Active Problem List Diagnosis Code Type 2 diabetes mellitus with hemoglobin A1c goal of less than 7.0% ([facility]) E11.9 Bilateral lower extremity edema R60.0 S/P lumbar fusion Z98.1 Chronic bilateral low back pain without sciatica M54.50, G89.29 Hip pain, left M25.552 Hypertension goal BP (blood pressure) < 140/90 I10 Mood disorder ([facility]) F39 Hyperlipidemia with target LDL less than 100 E78.5 Sleep disorder G47.9 Crohn's disease of colon with complication ([facility]) K50.119 S/P partial resection of colon Z90.49 Interstitial pulmonary disease ([facility]) J84.9 Overweight (BMI 25.0-29.9) E66.3 DDD (degenerative disc disease), lumbar M51.36 Chronic pain syndrome G89.4 Achilles tendon pain M76.60 Crohn's disease ([facility]) K50.90 Generalized anxiety disorder F41.1 COPD, group D, by GOLD 2017 classification ([facility]) J44.9 Colonic stricture (HCC) K56.699 Encounter for screening for malignant neoplasm of colon Z12.11 Enthesopathy of knee M76.899 Hemarthrosis of ankle and foot M25.073, M25.076 Leiomyoma of uterus D25.9 Leukocytosis D72.829 Malaise and fatigue R53.81, R53.83 Other screening mammogram Z12.31 Ovarian cyst N83.209 Pneumonia due to COVID-19 virus U07.1, J12.82 Sciatica M54.30 Recurrent syncope R55 UTI (urinary tract infection) N39.0 Tubular adenoma of colon D12.6 Tachycardia R00.0 Current Outpatient Medications Medication Sig Dispense Refill Vitamin D3 1.25 MG (77418 UT) Oral Capsule Take 1 Capsule by mouth in the morning. Womens Multi Oral Capsule Take 1 Tablet by mouth daily. Atorvastatin Calcium 40 MG Oral Tablet (Lipitor) Take 1 Tablet by mouth in the morning. (Patient taking differently: Take 1 Tablet by mouth in the morning. Patient takes in the evening. .) 90 Tablet 3 buPROPion HCl ER (XL) [...] Each 0 CPAP every night at bedtime. Trelegy Ellipta 200-62.5-25 MCG/ACT Aerosol Powder Breath Activated (Riggcudumsn-Gsenjwwkfawa-Jmhbaqwhqw) Inhale 1 Puff by mouth daily. 60 Blister Dosing Unit 5 Celecoxib 100 MG Oral Capsule (CeleBREX) Take 1 capsule by mouth in the morning for pain. 90 Capsule 1 D-Care Glucometer w/Device Kit Use as directed [...] 800 mg intravenously every 8 weeks.1 Each Benzonatate 100 MG Oral Capsule (Tessalon Perles) Take 1 Capsule by mouth 3 times a day as needed for Cough. Do not cut, crush, or chew. 50 Capsule 1 guaiFENesin ER 600 MG Oral Tablet Extended Release 12 Hour (Mucinex) Take 1 Tablet by mouth 2 timesa day as needed for Congestion. Take with plenty of water. Do not cut, crush or chew 40 Tablet 2 Current Facility-Administered Medications Medication Dose Route Frequency Provider Last Rate Last Admin Albuterol Sulfate (Proventil) (2.5 MG/3ML) 0.083% inhalation solution 2.5 mg 2.5 mg Nebulizer Once PRN Chel Ozuna PA-C Past Medical History: Diagnosis Date NO KNOWN PROBLEMS Past Surgical History: Procedure Laterality Date INFORMATION Lumbar surgery X 4 INJECT DX/THER SUBSTANCE INTERLAMINAR LUMBAR/SACRAL W IMAGE GUIDE 01/01/2023 INJECTION SPINE LUMBAR OR SACRAL [facility] M [facility]re[facility] LIGATE/CUT OVIDUCT(S) Tubal Ligation,Non Laparoscopic REMOVAL OF APPENDIX Appendectomy REMOVE TONSILS & ADENOIDS, UNDER 12 T & A, age<12 REPAIR INGUINAL HERNIA, UNDER AGE 5 Inguinal Hernia Repair,6mo-5yr, Right Review of patient's allergies indicates: No Known Allergies Family History Problem Relation Age of Onset Asthma Mother Hypertension Mother Diabetes Mother Heart Disorder Father Cancer Aunt (Unspecified) maternal, breast Cancer Aunt (Unspecified) maternal, ovary Cancer Uncle (Unspecified) maternal, unknown site Family Status Relation Status Mo (Not Specified) Fa (Not Specified) AUNT (Not Specified) AUNT (Not Specified) UNCLE (Not Specified) Social History Socioeconomic History Marital status: Spouse name: Not on file Number of children: Not on file Years of education: Not on file Highest education level: Not on file Occupational History Not on file Tobacco Use Smoking status: Former Packs/day: 2 Types: Cigarettes Smokeless tobacco: Never Vaping Use Vaping Use: Never used Substance and Sexual Activity Alcohol use: No Drug use: No Sexual activity: Yes Other Topics Concern Not on file Social History Narrative Not on file Social Determinants of Health Financial Resource Strain: Not on file Food Insecurity: No Food Insecurity (08/15/2022) Hunger Vital Sign Worried About Running Out of Food in the Last Year: Never true Ran Out of Food in the Last Year: Never true Transportation Needs: Not on file Physical Activity: Not on file Stress: Not on file Social Connections: Not on file Intimate Partner Violence: Not on file Housing Stability: Not on file Travel Screening Question 2023 7:47 AM EDT - Filed by Patient Do you have any of the following new or worsening symptoms? Cough Shortness of breath Have you recently been in contact with someone who was sick? No / Unsure Myc Visit Accident Related Question Question 2023 7:47 AM EDT - Filed by Patient Is this visit related to an accident? (i.e work, motor vehicle) No Phq2 Adult-Depression Question 2023 8:44 AM EDT - Filed by Mekhi Reyes, DO Over the last two weeks, how often have you been bothered by any of the following problems? Little interest or pleasure in doing things Several days Feeling down, depressed or hopeless Several days Sum of the PHQ1 and PHQ2 questions (range: 0 - 6) 2 (Further screening not recommended) Review of Systems Constitutional: Negative for chills and fever. HENT: Negative for congestion, postnasal drip, sore throat and trouble swallowing. Eyes: Negative for photophobia and itching. Respiratory: Positive for cough, shortness of breath and wheezing. Negative for apnea. Cardiovascular: Negative for chest pain and palpitations. Gastrointestinal: Negative for abdominal distention, abdominal pain, nausea and vomiting. Genitourinary: Negative for dysuria and frequency. Musculoskeletal: Negative for arthralgias and myalgias. Skin: Negative for pallor and rash. Neurological: Negative for dizziness, light-headedness and headaches. Psychiatric/Behavioral: Negative for sleep disturbance. The patient is not nervous/anxious. Objective BP 110/72 | Pulse 76 | Temp 37.2 C (99 F) (Tympanic) | Resp 20 | Wt 81.8 kg (180 lb 6.4 oz) | LMP 06/01/2005 | SpO2 92% | BMI 29.12 kg/m | BSA 1.95 m Physical Exam Constitutional: General: She is not in acute distress. Appearance: She is not ill-appearing. HENT: Head: Normocephalic and atraumatic. Right Ear: Tympanic membrane, ear canal and external ear normal. Left Ear: Tympanic membrane, ear canal and external ear normal. Nose: Nose normal. No congestion or rhinorrhea. Mouth/Throat: Mouth: Mucous membranes are moist. Pharynx: Oropharynx is clear. Eyes: General: No scleral icterus. Extraocular Movements: Extraocular movements intact. Conjunctiva/sclera: Conjunctivae normal. Pupils: Pupils are equal, round, and reactive to light. Cardiovascular: Rate and Rhythm: Normal rate and regular rhythm. Pulses: Normal pulses. Heart sounds: Normal heart sounds. No murmur heard. No friction rub. No gallop. Pulmonary: Effort: Pulmonary effort is normal. No respiratory distress. Breath sounds: No stridor. No wheezing, rhonchi or rales. Comments: No tachypnea or accessory muscle use. Does seem to have diminished breath sounds globallyalong with prolonged expiratory phase. Rare expiratory wheeze Chest: Chest wall: No tenderness. Abdominal: General: Bowel sounds are normal. There is no distension. Palpations: Abdomen is soft. There is no mass. Tenderness: There is no abdominal tenderness. Musculoskeletal: General: No deformity. Normal range of motion. Cervical back: Normal range of motion and neck supple. Right lower leg: No edema. Left lower leg: No edema. Lymphadenopathy: Cervical: No cervical adenopathy. Skin: General: Skin is warm and dry. Coloration: Skin is not jaundiced. Findings: No rash. Comments: Patient does have a small abrasion on the right aspect of the chin. Mild adjacent erythema. No obvious drainage. No tenderness Neurological: General: No focal deficit present. Mental Status: She is oriented to person, place, and time. Cranial Nerves: No cranial nerve deficit. Sensory: No sensory deficit. Motor: No weakness. Psychiatric: Mood and Affect: Mood normal. Behavior: Behavior normal. ASSESSMENT/PLAN: Cat scratch of cheek, initial encounter (Primary) - Sulfamethoxazole-Trimethoprim 800-160 MG Oral Tablet (Bactrim DS); Take 1 Tablet by mouth in the morning and 1 Tablet before bedtime. Do all this for 7 days. Until gone. COPD, group D, by GOLD 2017 classification ([facility]) - SPIROMETRY B/A BRONCHODILATOR; Future; Expected date: 2023 - Albuterol Sulfate (Proventil) (2.5 MG/3ML) 0.083% inhalation solution 2.5 mg - CT CHEST WO CONTRAST Type 2 diabetes mellitus with hemoglobin A1c goal of less than 7.0% ([facility]) Interstitial pulmonary disease ([facility]) - SPIROMETRY B/A BRONCHODILATOR; Future; Expected date: 2023 - Albuterol Sulfate (Proventil) (2.5 MG/3ML) 0.083% inhalation solution 2.5 mg - CT CHEST WO CONTRAST Hyperlipidemia with target LDL less than 100 Chronic pain syndrome Chronic kidney disease, stage 3a ([facility]) Crohn's disease of colon with complication ([facility]) Shortness of breath - SPIROMETRY B/A BRONCHODILATOR; Future; Expected date: 2023 - Albuterol Sulfate (Proventil) (2.5 MG/3ML) 0.083% inhalation solution 2.5 mg - CT CHEST WO CONTRAST Chronic bilateral low back pain without sciatica Plan: Patient presents to office for routine follow-up. First with myself as PCP. Still seems to behaving some respiratory issues suspect related to COPD. Also has questionable diagnosis of interstitial lung disease. Does not seem to have any current signs of upper or lower respiratory infection at this time Explained to patient that I would like her to continue her current inhaler regimen of Trelegy Ellipta 200-60 2.5-25 mcg 1 puff daily. Continue albuterol HFA as well as DuoNeb treatments as needed. I do not see any indication for additional antibiotics in regards to lung infection at this time no current evidence on exam Would like to check PFTs at [facility]. Will also order CT chest without contrast as would like to evaluate the possibility of interstitial lung disease better. She does have a small abrasion/wound on her right ramirez from cat scratch. May be some adjacent erythema. Would like to treat with Bactrim DS 1 tablet twice daily for 10 days. Counseled on common side effects which to monitor Patient should have repeat labs as previously scheduled to recheck CMP, A1c. Follow-up with GI at [facility] in regards to Crohn's disease, treatments Follow Up: Return in about 3 months (around 07/04/2023), or if symptoms worsen or fail to improve, for Return with Physician. | For: Return with Physician | Check-out note: 3 month follow up PFTs [facility] CT Chest [facility] as previously ordered Mekhi Reyes DO documented in this encounter Nursing Notes * Agueda Sinha LPN - 2023 7:58 AM EDT The patient has been properly identified by confirmation of name and date of . Chief Complaint Patient presents with Status Check New to provider today-- former Dr. Samayoa patient Ongoing SOB and cough following URI-- was seen twice here for symptoms. Also, cat scratch right side of chin 2 weeks ago. Using Neosporin. Patient has been verbally educated on the need or importance of Immunizations: tdap documented in this encounter Plan of Treatment Upcoming Encounters Date Type Department Care Team (Latest Contact Info) Description 04/08/2023 8:30 AM EST Appointment Radiology, [facility] [address] [place] [address] 04/17/2023 10:00 AM EST PulmDiagnostic Pulmonary Function Lab, [id number] [place], [place] [id number] [facility], Pulm Func Tech [address] [place] [address] 05/11/2023 8:25 AM EST Hospital Encounter [facility], Operating Room [facility] [address] [place] [id number] Juan M Borrero, DO [address] [place] [address] 05/11/2023 8:25 AM EST - 05/11/2023 8:50 AM EST Surgery [facility], Operating Room [facility] [address] [place] [id number] Juan M Borrero, DO [address] [place] [id number] INJECTION SPINE LUMBAR OR SACRAL 07/07/2023 8:40 AM EST Office Visit [facility] [address] [place] [address] Mekhi Reyes, DO [address] [place] [id number] 08/10/2023 10:20 AM EDT Office Visit Dermatology [address] [phone] Everton Mays PA-C [address] [place] [id number] Scheduled Orders Name Type Priority Associated Diagnoses Orde r Schedule SPIROMETRY B/A BRONCHODILATOR Procedures Routine COPD, group D, by GOLD 2017 classification (HCC) Interstitial pulmonary disease (HCC) Shortness of breath Expected: 2023, Expires: 05/03/2024 CT CHEST WO CONTRAST Medical Imaging Routine COPD, group D, by GOLD 2017 classification (HCC) Interstitial pulmonary disease (HCC) Shortness of breath Ordered: 2023 Scheduled Procedures Name Priority Associated Diagnoses Date/Ti me INJECTION SPINE LUMBAR OR SACRAL Lumbar radiculopathy 05/11/2023 8:25 AM EST Health Maintenance Due Date Last Done Comments DTaP,Tdap,and Td Vaccines (1 - Tdap) 1981 HPV/Co-Test 1992 Cologuard 2007 Fecal Occult Blood Test 2007 Sigmoidoscopy 2007 *COPD SEVERITY VERIFIED BY PFT 09/05/2020 Albumin/Creatinine Ratio 08/23/2021 08/23/2020 Hepatitis B (3 of 3 - Risk 3-dose series) 01/14/2022 11/19/2021, 11/13/2020 HbA1c 07/29/2022 01/28/2022, 08/31, 05/13/2021, Additional history exists Depression, Most Recent Score >= 10 (will fire each visit until score < 10) 11/19/2022 11/18/2022 COVID-19 Vaccine ( season) 2023 05/15/2021, 09/12/2020, 08/22/2020 Diabetic Eye Exam 07/18/2023 07/18/2022, 11/13/2020 Mammogram 07/29/2023 07/29/2022, 04/0 07/2020, 08/30/2020, Additional history exists GFR 09/30/2023 09/29/2022, 06/03, 01/28/2022, Additional history exists Diabetic Foot Exam 11/19/2023 11/18/2022, 0 11/19/2021, 09/13/2020 Cervical Cancer Screening 12/19/2023 Pap Smear 12/19/2023 12/18/2020 O2 ASSESSMENT COMPLETED IN PAST YEAR FOR COPD 03/17/2024 2023 Lipid Panel 01/28/2027 01/28/2022, 08/31, 05/13/2021, Additional [...] as of this encounter Visit Diagnoses Diagnosis Cat scratch of cheek, initial encounter- Primary COPD, group D, by GOLD 2017 classification (HCC) Type 2 diabetes mellitus with hemoglobin A1c goal of less than 7.0% (HCC) Interstitial pulmonary disease (HCC) Postinflammatory pulmonary fibrosis Hyperlipidemia with target LDL less than 100 Other and unspecified hyperlipidemia Chronic pain syndrome Chronic kidney disease, stage 3a (HCC) Crohn's disease of colon with complication (HCC) Shortness of breath Chronic bilateral low back pain without sciatica Lumbar radiculopathy Thoracic or lumbosacral neuritis or radiculitis, unspecified documented in this encounter Care Teams Button Buttonhole Marker Relationship Specialty Start Date End Date Mekhi Reyes DO [address] [place] [phone] PCP - General Internal Medicine 12/10/22 documented as of this encounter"
--- OUTSIDE RECORDS SUMMARY | 2023-04-10 08:55 | External Medical Summary | Summary of Care ---
Author Name Unknown Organization [facility] Address [address] [facility] [place] [address] Phone [phone] Care Team Providers Care Senior Application Software Engineer Name Role Phone Mekhi Reyes Primary Care Provid er Reason for Referral * Evaluate & Treat - Unlimited Visits (Within 10 days (routine)) - Authorized Specialty Diagnoses / Procedures Referred By Leif ibrahim Referred To Contact Dermatology Diagnoses Encounter for screening for malignant neoplasm of skin Nain Pacheco MD [address] [address] Referral ID Status Reason Start Date Expiration Date Visits Requested Visits Authorized [id number] Authorized Specialty Services Required 01/13/2023 999 999 Question Answer Referral Priority Within 10 days (routine) Are you referring the patient for Mohs Surgery and have a current positive skin cancer biopsy result? No What is the reason for the patient referral? Rash/Skin Check/Eval of Lesion or Mole Comments Notes scanned in Epic on 01/13/23 Encounter Details Date Type Department Care Team Description 01/13/2023 Orders Only Access Center, [place] [address] [facility] *DO NOT REMOVE THIS DEPARTMENT* [place] [address] Request, External Referral Encounter for screening for malignant neoplasm of skin* Allergies No known active allergiesdocumented as of this encounter (statuses as of 01/13/2023) Medications Medication Sig Dispensed Refills Start Date End Date Status Vitamin D3 1.25 MG (85536 UT) Oral Capsule Take 1 Capsule by mouth in the morning. 0 Active Womens Multi Oral Capsule Take 1 Tablet by mouth daily. 0 Active D-Care Glucometer w/Device Kit Use as directed . Use to test BS; e11.9, may substitute for insurance coverage 1 Kit 0 10/14/2021 Active EpulsTouch Delica Lancets 30G Use to test blood [...] as of this encounter (statuses as of 01/13/2023) Active Problems Problem Noted Date Colonic stricture [...] as of this encounter (statuses as of 01/13/2023) Resolved Problems Problem Noted Date Resolved Date [...] as of this encounter (statuses as of 01/13/2023) Immunizations Name Administration Dates Next Due COVID-19 mRNA, LNP-s, No Pre serve, 2-Dose Series (GoodClic) 05/15/2021,09/12/2020,08/22/2020 Hepatitis B, 20+ yrs 11/19/2021,05/20/20 21(Deferred: Contraindication),11/13/2020 12/13/2020 Pneumococcal Conjugate Vacc, 13 Valent (Prevnar) 04/20/2018 Pneumococcal Conjugate Vacci ne, 20-valent ([id number]) 01/27/2022 Seasonal Influenza Virus Vac cine, Unspecified [...] on file documented as of this encounter Plan of Treatment Upcoming Encounters Date Type Specialty Care Team Description 01/27/2023 Pharmacy Pharmacy Pharmacist2, [facility] [address] [place] [address] 02/26/2023 Telemedicine Pain Medicine Maranda, GUY Reed [address] [place] [address] 03/20/2023 Office Visit Family Medicine Mekhi Reyes DO [address] [place] [address] Scheduled Referrals Name Type Priority Associated Diagnoses Orde r Schedule DERMATOLOGY REFERRAL OP Referral Within 10 days (routine) Encounter for screening for malignant neoplasm of skin Ordered: 01/13/2023 Health Maintenance Due Date Last Done Comments [...] as of this encounter Visit Diagnoses Diagnosis Encounter for screening for malignant neoplasm of skin- Primary Screening for malignant neoplasm of the skin documented in this encounter Care Teams Senior Application Software Engineer Relationship Specialty Start Date End Date Mekhi Reyes, [address] [address] PCP - General Internal Medicine 12/10/22 documented as of this encounter
--- OUTSIDE RECORDS SUMMARY | 2023-04-10 08:55 | External Medical Summary | Summary of Care ---
Author Name Unknown Organization [facility] Address [address] [place] [address] Phone [phone] Care Team Providers Care Supervisor Stave Finishing Name Role Phone Mekhi Ragland Primary Care Provid er Reason for Visit * Reason Comments eRx-Medication Refill Encounter Details Date Type Department Care Team ([facility] st Contact Info) Description 04/01/[address] [phone] Faina Samayoa MD [address] [place] [phone] Encounter for long-term (current) use of other medications* Allergies No known active allergiesdocumented as of this encounter (statuses as of 04/02/2023) Medications Medication Sig Dispensed Refills Start Date End Date Status Vitamin D3 1.25 MG (25693 UT) Oral Capsule Take 1 Capsule by [...] Tablet before bedtime. 270 Tablet 3 3 023 Active Albuterol Sulfate HFA 108 (90 [...] )Indications:COPD, group D, by GOLD 2017 classification ([facility]) Inhale 1 Puff by mouth daily. 60 Blister Dosing Unit 5 3 Active Benzonatate 100 MG Oral Capsule (Tessalon Perlmeliza)Indications :Acute URI Take 1 Capsule by mouth [...] the morning for pain. 90 Capsule 1 3 Active Celecoxib 100 MG Oral Capsule (CeleBREX) Take 1 Capsule by mouth in the morning. for pain. 90 Capsule 1 3 023 Discontinued Hospital, Clinic, or Other Facility Administered Medication Ordered Dose Route Frequency Start Date End Date Status Albuterol Sulfate (Proventil) (2.5 MG/3ML) 0.083% inhalation solution 2.5 mgIndications:Screening for respiratory condition 2.5 mg NEBULIZER ONCE PRN 04/01/2022 Active documented as of this encounter (statuses as of 04/02/2023) Active Problems Problem Noted Date Diagnosed Date [...] as of this encounter (statuses as of 04/02/2023) Resolved Problems Problem Noted Date Diagnosed Date [...] as of this encounter (statuses as of 04/02/2023) Immunizations Name Administration Dates Next Due COVID-19 mRNA, LNP-s, No Pre serve, 2-Dose Series (Siminars) 05/15/2021,09/12/2020,08/22/2020 Hepatitis B, 20+ yrs 11/19/2021,05/20/20 21(Deferred: Contraindication),11/13/2020 12/13/2020 Pneumococcal Conjugate Vacc, 13 Valent (Prevnar) 04/20/2018 Pneumococcal Conjugate Vacci ne, 20-valent ([id number]) 01/27/2022 SEASONAL INFLUENZA, PF, 6 M & [...] encounter Miscellaneous Notes * Telephone Encounter - Allen Renner RPh - 04/02/2023 9:26 AM EDTSigned Prescriptions: Disp Refills Celecoxib 100 MG Oral Capsule (CeleBREX) 90 Cap*1 Sig: Take 1 capsule by mouth in the morning for pain.Authorizing Provider: MEKHI RAGLAND User:ALLEN RENNER documented in this encounter Plan of Treatment Upcoming Encounters Date Type Department Care Team (Latest Contact Info) Description 2023 8:00 AM EDT Office Visit [address] [phone] Mekhi Ragland DO [address] [place] [address] 05/11/2023 8:25 AM EST Hospital Encounter OR [facility], Operating Room [facility] [address] [place] [phone] Juan M Borrero DO [address] [place] [phone] 05/11/2023 8:25 AM EST - 05/11/2023 8:50 AM EST Surgery OR [facility], Operating Room [facility] [address] [place] [phone] Gissell, Max Cory, DO [address] [place] [phone] INJECTION SPINE LUMBAR OR SACRAL 08/10/2023 10:20 AM EDT Office Visit Dermatology [facility] [address] [place] [phone] Everton Mays PA-C [address] [place] [address] [phone] Scheduled Orders Name Type Priority Associated Diagnoses Orde r Schedule ALT Lab Routine Encounter for long-term (current) use of other medications Expected: 04/02/2023 (Approximate), Expires: 04/02/2024 AST Lab Routine Encounter for long-term (current) use of other medications Expected: 04/02/2023 (Approximate), Expires: 04/02/2024 Scheduled Procedures Name Priority Associated Diagnoses Date/Ti [...] < 10) 11/19/2022 11/18/2022 COVID-19 Vaccine ( - 2022- season) 2023 05/15/2021, 09/12/2020, 08/22/2020 Diabetic Eye Exam 07/18/2023 07/18/2022, 11/13/2020 Mammogram 07/29/2023 07/29/2022, 04/0 07/2020, 08/30/2020, Additional history exists GFR 09/30/2023 09/29/2022, 06/03, 01/28/2022, Additional history exists Diabetic Foot Exam 11/19/2023 11/18/2022, 0 11/19/2021, 09/13/2020 Cervical Cancer Screening 12/19/2023 Pap Smear 12/19/2023 12/18/2020 O2 ASSESSMENT COMPLETED IN PAST YEAR FOR COPD 03/17/2024 03/17/2023 Lipid Panel 01/28/2027 01/28/2022, 2 12/2021, 05/13/2021, [...] this encounter Visit Diagnoses Diagnosis Encounter for long-term (current) use of other medications- Primary Lumbar radiculopathy Thoracic or lumbosacral neuritis or radiculitis, unspecified documented in this encounter Care Teams Supervisor Stave Finishing Relationship Specialty Start Date End Date Mekhi Ragland DO [address] [place] [address] PCP - General Internal Medicine 12/10/22 documented as of this encounter
--- OUTSIDE RECORDS SUMMARY | 2023-04-10 08:55 | External Medical Summary | Summary of Care ---
Author Name Unknown Organization [facility] Address [address] [place] [address] Phone [phone] Care Team Providers Care Realty Loan Specialist Name Role Phone Mekhi Reyes Primary Care Provid er Reason for Visit * Reason Comments Appointment Encounter Details Date Type Department Care Team Description 01/27/2023 Pharmacy Pharm[address] [phone] Pharmacist2, [facility] [address] [address] DDD (degenerative disc disease), lumbar* Allergies No known active allergiesdocumented as of this encounter (statuses as of 03/16/2023) Medications Medication Sig Dispensed Refills Start Date End Date Status Vitamin D3 1.25 MG (74000 UT) Oral Capsule Take 1 Capsule by mouth in the morning. 0 Active Womens Multi Oral Capsule Take 1 Tablet by mouth daily. 0 Active D-Care Glucometer w/Device Kit Use as directed . Use to test BS; e11.9, may substitute for insurance coverage 1 Kit 0 10/15/19 22 Active OneTouch Delica Lancets 30G Use to test blood sugar twice daily; e11.9 200 Each 3 10/15/19 22 Active OneTouch Verio In Vitro Strip (Glucose Blood) Use to test blood sugar twice daily; e11.9 200 Strip 3 10/15/19 22 Active inFLIXimab 100 MG Intravenous Solution Reconstituted Administer 800 mg intravenously every 8 weeks. 1 Each 0 01/28/20 Active Celecoxib 100 MG Oral Capsule (CeleBREX) Take 1 Capsule by mouth in the morning. for pain. 90 Capsule 1 10/23/19 23 Active Atorvastatin Calcium 40 MG Oral Tablet (Lipitor)Indicati ons:Hyperlipidemi a with target LDL less than 100 Take 1 Tablet by mouth in the morning. 90 Tablet 3 11/19/19 23 Active Additional Information Patient taking differently:40 mg Oral Daily(AM),Patient takes in the evening., Reported on 02/27/2023 buPROPion HCl ER (XL) 150 MG Oral Tablet Extended Release 24 Hour (Wellbutrin XL) Take 1 Tablet by mouth in the morning. 90 Tablet 3 11/19/19 23 Active DULoxetine HCl 60 MG Oral Capsule Delayed Release Particles (Cymbalta) Take 1 Capsule by mouth in the morning. Do not cut, crush or chew. 90 Capsule 3 11/19/19 23 Active Pantoprazole Sodium 40 MG Oral Tablet Delayed Release (Protonix) Take 1 Tablet by mouth in the morning. 90 Tablet 3 11/19/19 23 Active Ipratropium-Albut katt 0.5-2.5 (3) MG/3ML Inhalation Solution (Duoneb) Inhale 3 mL via nebulizer every 4 hours as needed for Shortness of Breath or Wheezing. 100 mL 2 11/19/19 23 Active traZODone HCl 50 MG Oral Tablet (Desyrel)Indicati ons:Sleep disorder Take 1 Tablet by mouth every night at bedtime. 90 Tablet 3 11/19/19 23 Active traMADol HCl 50 MG Oral Tablet (Ultram)Indicatio ns:DDD (degenerative disc disease), lumbar,Chronic pain syndrome Take 1 Tablet by mouth 2 times a day as needed for Pain, Severe. 60 Tablet 3 11/19/19 23 Active Gabapentin 800 MG Oral Tablet (Neurontin) Take 1 Tablet by mouth in the morning and 1 Tablet at noon and 1 Tablet before bedtime. 270 Tablet 3 11/19/19 23 023 Active Albuterol Sulfate HFA 108 (90 Base) MCG/ACT Inhalation Aerosol SolutionIndicatio ns:COPD exacerbation (HCC) Inhale 2 Puffs by mouth every 6 hours as needed for Shortness of Breath or Wheezing. 8.5 g 5 12/17/19 Active Spacer/Aero-Holdi ng Chambers Device Use with inhaler. 1 Each 0 12/17/19 Active Trelegy Ellipta 100-62.5-25 MCG/ACT Aerosol Powder Breath Activated (Fluticasone-Umec lidinium-Vilanter ol) Inhale 1 Puff by mouth in the morning. Rinse mouth after use. 60 Blister Dosing Unit 6 07/01/19 23 023 Discontinued predniSONE 20 MG Oral Tablet (Deltasone) 1 tab 3 times a day for 3 days, then 1 tab 2 times a day for 3 days, then 1 tab daily for 3 days 18 Tablet 0 12/17/19 23 023 Discontinued(Ca dication List Clean Up) Hospital, Clinic, or Other Facility Administered Medication Ordered Dose Route Frequency Start Date End Date Status Albuterol Sulfate (Proventil) (2.5 MG/3ML) 0.083% inhalation solution 2.5 mgIndications:Screening for respiratory condition 2.5 mg NEBULIZER ONCE PRN 04/01/2022 Active documented as of this encounter (statuses as of 03/16/2023) Active Problems Problem Noted Date Colonic stricture 11/18/2022 Leiomyoma of uterus 11/18/2022 Leukocytosis 11/18/2022 Ovarian cyst 11/18/2022 Pneumonia due to COVID-19 virus 11/19/19 Recurrent syncope 11/18/2022 UTI (urinary tract infection) [...] as of this encounter (statuses as of 03/16/2023) Resolved Problems Problem Noted Date Resolved Date [...] as of this encounter (statuses as of 03/16/2023) Immunizations Name Administration Dates Next Due COVID-19 mRNA, LNP-s, No Pre serve, 2-Dose Series (Pfizer) 05/15/2021,09/12/2020,08/22/2020 Hepatitis B, 20+ yrs 11/19/2021,05/20/20 21(Deferred: Contraindication),11/13/2020 12/13/2020 Pneumococcal Conjugate Vacc, 13 Valent (Prevnar) 04/20/2018 Pneumococcal Conjugate Vacci ne, 20-valent ([id number]) 01/27/2022 Seasonal Influenza Virus Vac cine, Unspecified [...] as of this encounter Progress Notes * Janice Hinton, painter drum - 01/26/2023 11:14 AM EDT Krystin Jaffe has not contacted the clinic to schedule/reschedule an appointment for Pain management per referral from PCP despite multiple requests (via phone, letter and/or [facility]) to do so by our team. Patient is discharged from [facility] services at this time. Thank you, Janice Hinton Business Banking Relationship Manager [facility] ([facility]) (Formerly Telepharmacy) 01/26/2023, 11:14 AM documented in this encounter Plan of Treatment Upcoming Encounters Date Type Specialty Care Team Description 03/17/2023 Office Visit Family Medicine Carroll Bill PA-C [address] [place] [address] 2023 Office Visit Family Medicine Mekhi Reyes, DO [address] [facility] [place] [address] 05/11/2023 Hospital Encounter Surgery Juan M Borrero, DO [address] [place] [phone] 05/11/2023 Surgery Surgery Juan M Borrero, DO [address] [place] [phone] INJECTION SPINE LUMBAR OR SACRAL 08/10/2023 Office Visit Dermatology Everton Mays PA-C [address] [facility] [place] [place] [address] Scheduled Procedures Name Priority Associated Diagnoses Date/Ti [...] Vaccine ( season) 2023 05/15/2021, 09/12/2020, 08/22/2020 Influenza Vaccine (FLU shot) (#1) 2023 04/21/2020, [...] as of this encounter Visit Diagnoses Diagnosis DDD (degenerative disc disease), lumbar- Primary Degeneration of lumbar or lumbosacral intervertebral disc Lumbar radiculopathy Thoracic or lumbosacral neuritis or radiculitis, unspecified documented in this encounter Care Teams Realty Loan Specialist Relationship Specialty Start Date End Date [place] [address] PCP - General Internal Medicine 12/10/22 documented as of this encounter
--- OUTSIDE RECORDS SUMMARY | 2023-04-10 08:55 | External Medical Summary | Summary of Care ---
Author Name Unknown Organization [facility] Address [address] [facility] [address] Phone [phone] Care Team Providers Care Stationary Equipment Mechanic Name Role Phone DannyMekhi weber Primary Care Provid er Reason for Referral * Evaluate & Treat - Unlimited Visits (Within 10 days (routine)) - Authorized Specialty Diagnoses / Procedures Referred By Leif ibrahim Referred To Contact Dermatology Diagnoses Screening for malignant neoplasm of skin Nain Pacheco MD [address] [address] Referral ID Status Reason Start Date Expiration Date Visits Requested Visits Authorized [id number] Authorized Specialty Services Required 02/19/2023 999 999 Question Answer Referral Priority Within 10 days (routine) Are you referring the patient for Mohs Surgery and have a current positive skin cancer biopsy result? No - Unknown What is the reason for the patient referral? Rash/Skin Check/Eval of Lesion or Mole Comments Screen for malignant neoplasm of skin Encounter Details Date Type Department Care Team Description 02/19/2023 Orders Only Access Center, [place] [address] [place] [address] Ext *DO NOT REMOVE THIS DEPARTMENT* [place] [address] Request, External Referral Screening for malignant neoplasm of skin* Allergies No known active allergiesdocumented as of this encounter (statuses as of 02/19/2023) Medications Medication Sig Dispensed Refills Start Date End Date Status Vitamin D3 1.25 MG (42081 UT) Oral Capsule Take 1 Capsule by [...] 0 Active predniSONE 20 MG Oral Tablet (Deltasone)Indicati ons:Sinobronchitis, COPD exacerbation (HCC) Take 2 Tablets by mouth in the morning for 5 days. 10 Tablet 0 02/17/2023 3 Active Amoxicillin-Pot Clavulanate 875-125 MG Oral Tablet (Augmentin)Indicati ons:Sinobronchitis, COPD exacerbation (HCC) Take 1 Tablet by mouth in the morning and 1 Tablet before bedtime. Do all this for 10 days. 20 Tablet 0 02/17/2023 3 Active Hospital, Clinic, or Other Facility Administered Medication Ordered Dose Route Frequency Start Date End Date Status Albuterol Sulfate (Proventil) (2.5 MG/3ML) 0.083% inhalation solution 2.5 mgIndications:Screening for respiratory condition 2.5 mg NEBULIZER ONCE PRN 04/01/2022 Active documented as of this encounter (statuses as of 02/19/2023) Active Problems Problem Noted Date Colonic stricture [...] as of this encounter (statuses as of 02/19/2023) Resolved Problems Problem Noted Date Resolved Date [...] as of this encounter (statuses as of 02/19/2023) Immunizations Name Administration Dates Next Due COVID-19 mRNA, LNP-s, No Pre serve, 2-Dose Series ([facility]) 05/15/2021,09/12/2020,08/22/2020 Hepatitis B, 20+ yrs 11/19/2021,05/20/20 21(Deferred: Contraindication),11/13/2020 12/13/2020 Pneumococcal Conjugate Vacc, 13 Valent (Prevnar) 04/20/2018 Pneumococcal Conjugate Vacci ne, 20-valent ([id number]) 01/27/2022 Seasonal Influenza Virus Vac cine, Unspecified [...] Team Description 02/26/2023 Telemedicine Pain Medicine Day, GUY Reed [address] [place] [address] 03/20/2023 Office Visit Family Medicine Mekhi Reyes, [address] [place], [place] [address] [address] Scheduled Referrals Name Type Priority Associated Diagnoses Orde r Schedule DERMATOLOGY REFERRAL OP Referral Within 10 days (routine) Screening for malignant neoplasm of skin Ordered: 02/19/2023 Health Maintenance Due Date Last Done Comments [...] COPD 02/18/2024 02/17/2023 Lipid Panel 01/28/2027 01/28/2022, 08/31, 05/13/2021, Additional [...] as of this encounter Visit Diagnoses Diagnosis Screening for malignant neoplasm of skin- Primary Screening for malignant neoplasm of the skin documented in this encounter Care Teams Stationary Equipment Mechanic Relationship Specialty Start Date End Date Mekhi Reyes, DO [address] [place] [address] PCP - General Internal Medicine 12/10/22 documented as of this encounter
--- OUTSIDE RECORDS SUMMARY | 2023-04-10 08:55 | External Medical Summary | Summary of Care ---
Author Name Unknown Organization [facility] Address [address] [place] [address] Phone [phone] Care Team Providers Care Cook Italian Style Food Name Role Phone Mekhi Ragland Primary Care Provid er Reason for Visit * Reason Comments eRx-Medication Refill Encounter Details Date Type Department Care Team Description 02/20/[address] [id number] Faina Samayoa MD [address] [place] [address] Allergies No known active allergiesdocumented as of this encounter (statuses as of 02/20/2023) Medications Medication Sig Dispensed Refills Start Date End Date Status Vitamin D3 1.25 MG (47697 UT) Oral Capsule Take 1 Capsule by [...] 8 weeks. 1 Each 0 2 Active Celecoxib 100 MG Oral Capsule (CeleBREX) [...] the morning. 90 Tablet 3 3 Active Ipratropium-Albut katt 0.5-2.5 (3) MG/3ML Inhalation [...] or Wheezing. 8.5 g 5 3 Active Spacer/Aero-Holdi ng Chambers Device Use with inhaler. 1 Each 0 3 Active CPAP every night at bedtime. 0 Active predniSONE 20 MG Oral Tablet (Deltasone)Indica tions:Sinobronchi tis,COPD exacerbation (HCC) Take 2 Tablets by mouth in the morning for 5 days. 10 Tablet 0 3 02/23/20 23 Active Amoxicillin-Pot Clavulanate 875-125 MG Oral Tablet (Augmentin)Indica tions:Sinobronchi tis,COPD exacerbation (HCC) Take 1 Tablet by mouth in the morning and 1 Tablet before bedtime. Do all this for 10 days. 20 Tablet 0 3 02/28/20 23 Active Trelegy Ellipta 100-62.5-25 MCG/ACT Aerosol Powder Breath Activated (Fluticasone-Umec lidinium-Vilanter ol) INHALE 1 PUFF BY MOUTH IN THE MORNING and rinse mouth 60 Blister Dosing Unit 5 3 Active Trelegy Ellipta 100-62.5-25 MCG/ACT Aerosol Powder Breath Activated (Fluticasone-Umec lidinium-Vilanter ol) Inhale 1 Puff by mouth in the morning. Rinse mouth after use. 60 Blister Dosing Unit 6 3 02/21/20 23 Discontinued Hospital, Clinic, or Other Facility Administered Medication Ordered Dose Route Frequency Start Date End Date Status Albuterol Sulfate (Proventil) (2.5 MG/3ML) 0.083% inhalation solution 2.5 mgIndications:Screening for respiratory condition 2.5 mg NEBULIZER ONCE PRN 04/01/2022 Active documented as of this encounter (statuses as of 02/20/2023) Active Problems Problem Noted Date Colonic stricture [...] as of this encounter (statuses as of 02/20/2023) Resolved Problems Problem Noted Date Resolved Date [...] as of this encounter (statuses as of 02/20/2023) Immunizations Name Administration Dates Next Due COVID-19 mRNA, LNP-s, No Pre serve, 2-Dose Series (Lumus) 05/15/2021,09/12/2020,08/22/2020 Hepatitis B, 20+ yrs 11/19/2021,05/20/20 21(Deferred: Contraindication),11/13/2020 12/13/2020 Pneumococcal Conjugate Vacc, 13 Valent (Prevnar) 04/20/2018 Pneumococcal Conjugate Vacci ne, 20-valent ([id number]) 01/27/2022 Seasonal Influenza Virus Vac cine, Unspecified [...] encounter Miscellaneous Notes * Telephone Encounter - Consuelo Sinclair RP - 02/20/2023 6:44 PM EDTSigned Prescriptions: Disp Refills Trelegy Ellipta 100-62.5-25 MCG/ACT Aeroso*60 Bli*5 Sig: INHALE1 PUFF BY MOUTH IN THE MORNING and rinse mouthAuthorizing Provider: MEKHI RAGLAND User: CONSUELO SINCLAIR documented in this encounter Plan of Treatment Upcoming Encounters Date Type Specialty Care Team Description 02/26/2023 Telemedicine Pain Medicine Day, GUY Reed [address] [facility] [place] [address] 2023 Office Visit Family Medicine Mekhi Ragland, DO [address] [place] [address] Health Maintenance Due Date Last Done Comments [...] filedocumented as of this encounter Care Teams Cook Italian Style Food Relationship Specialty Start Date End Date Mekhi Ragland DO [address] [place] [id number] PCP - General Internal Medicine 12/10/22 documented as of this encounter
--- OUTSIDE RECORDS SUMMARY | 2023-04-10 08:56 | External Medical Summary | Summary of Care ---
Author Name Unknown Organization [facility] [address] [facility] [address] Phone [phone] Care Team Providers Care Chorus Dancer Name Role Phone Mekhi Reyes Primary Care Provid er Reason for Visit * Auth/Cert Specialty Diagnoses / Procedures Referred By Leif t Referred To Contact Diagnoses Lumbar radiculopathy Lumbar radiculopathy [M54.16] Procedures INJECT DX/THER SUBSTANCE INTERLAMINAR LUMBAR/SACRAL W IMAGE GUIDE INJECTION SPINE LUMBAR OR SACRAL Referral ID Status Reason Start Date Expiration Date Visits Re quested Visits Authorized [id number] Encounter Details Date Type Department Care Team Description 01/01/2023 Hospital Encounter OR [facility], Operating Room [facility] [address] [place] [phone] Juan M Borrero DO [address] [place] [phone] Allergies No known active allergiesdocumented as of this encounter (statuses as of 01/01/2023) Medications Medication Sig Dispensed Refills Start Date End Date Status Vitamin D3 1.25 MG (07772 UT) Oral Capsule Take 1 Capsule by [...] not cut, crush or chew. 90 Capsule 11/18/2022 Active Pantoprazole Sodium 40 MG Oral [...] bedtime. 270 Tablet 3 11/18/2022 3 Active predniSONE 20 MG Oral Tablet (Deltasone) [...] with inhaler. 1 Each 0 12/16/2022 Active documented as of this encounter (statuses as of 01/01/2023) Active Problems Problem Noted Date Colonic stricture [...] as of this encounter (statuses as of 01/01/2023) Resolved Problems Problem Noted Date Resolved Date [...] as of this encounter (statuses as of 01/01/2023) Immunizations Name Administration Dates Next Due COVID-19 mRNA, LNP-s, No Pre serve, 2-Dose Series ([employer]) 05/15/2021,09/12/2020,08/22/2020 Hepatitis B, 20+ yrs 11/19/2021,05/20/20 21(Deferred: Contraindication),11/13/2020 12/13/2020 Pneumococcal Conjugate Vacc, 13 Valent (Prevnar) 04/20/2018 Pneumococcal Conjugate Vacci ne, 20-valent ([id number]) 01/27/2022 Seasonal Influenza Virus Vac cine, Unspecified [...] Sign Reading Time Taken Comments Blood Pressure 136/74 01/01/2023 10:05 AM EDT Pulse 91 01/01/2023 10:05 AM EDT Temperature 36.1 C (97 F) 01/01/2023 9:26 AM EDT Respiratory Rate 15 01/01/2023 10:05 AM EDT Oxygen Saturation 93% 01/01/2023 10:05 AM EDT Inhaled Oxygen Concentration - - Weight - - Height - - Body Mass Index - - documented in this encounter Discharge Instructions * Discharge Instr - AVS* Juan M Borrero DO - 01/01/2023 10:03 AM EDT [facility] C[facility] [address] [place] [address] Discharge Date: 01/01/2023 [facility] at [phone] during business hours. For after-hours emergencies call 911. Your attending physician at the time of your discharge was: Juan M Borrero, DO [address] [place] [phone] The information below provides you with the instructions and the list of medications you need to betaking following discharge from the hospital. If you have any questions, please ask before leaving.Please carry this letter with you when you see your doctor in the clinic. Diet: Resume your normal diet If you are diabetic, follow your blood sugars closely for next 2-3 days as they are likely to be elevated. If you are having difficulty controlling your blood sugars call your family doctor or the physician that treats your diabetes. Activity: Do not engage in strenuous activity today Resume your normal activities tomorrow Do not soak in water for 24 hours. No swimming, hot tub or bath but showering is allowed. Do not use heat on the injection site for 24 hours. If uncomfortable ice may be helpful. Some injections may make your arms or legs weak for a few hours. Be extremely careful when walking or changing positions that you do not fall. Have someone assist you for the next 6 hours. If weakness or numbness becomes progressive CALL IMMEDIATELY or GO TO THE NEAREST EMERGENCY ROOM Keep a diary of your pain until seen in the office to help us determine how effective the injectionwas Do not restart physical therapy or chiropractic manipulation until 48 hours after your injection Call : If weakness or numbness suddenly becomes worse or become progressive If the injection site becomes red, swollen, warm to the touch, begins to bleed or drain fluid, or is excessively painful. If you have any questions Medications: Resume all the medications you were taking prior to your injection. Resume your anticoagulants tomorrow unless otherwise instructed by your family physician, dairy feed mixing operator or the anticoagulation clinic. Additional Instructions: None Driving: You may resume driving in 12-24 hours if no weakness is noted . Date you may return to work or school: N/A Follow Up: Follow-up with Dr. Borrero in 8 weeks via telehealth or in-person appointment per your preference. documented in this encounter Progress Notes * Juan M Borrero DO - 01/01/2023 10:03 AM EDT [facility] [place] [address] [facility] [phone] OUTPATIENT SURGERY DISCHARGE SUMMARY NOTE Name: Krystin Jaffe Location: OR [facility]/OR Date: 01/01/2023 Time: 10:03 AM Surgery Date: 01/01/2023 Procedure: Procedure(s): INJECTION SPINE LUMBAR OR SACRAL No laterality found for procedure #1 Surgeon: Surgeon(s): Juan M Borrero DO Discharge Diagnosis: Lumbar radicular pain After examination of this patient, I have determined she is ready for discharge to home when the patient meets criteria. Discharge instructions were given to the patient. Juan M Borrero DO OR [facility], Operating Room [facility] [address] [facility] [place] [phone] documented in this encounter H&P Notes * Juan M Borrero DO - 01/01/2023 7:35 AM EDT Interventional Pain H&P Subjective: History of Present Illness: Krystin Jaffe is a 62 year old year-old female with a past medical history significant for past lumbar fusion and lumbar radicular pain who is presenting for L1/2 or L2/3 MIKE to improve her pain and function. her pain is essentially unchanged since our last office visit with her on 12/03/2022. ASA 3 AW nml Review of Systems: A focused 12-pt ROS were of reviewed with the patient including difficulty with sleep, snoring, aspiration history, dysphagia, stomach pain, nausea and vomiting, severe headaches, confusion, open skin lesions or wounds, chest pain, shortness of breath, excessive thirst, somnolence, dysuria, incomplete bladder emptying, easy bruising, recent clotting problems or bleeding, depression or rushed thoughts unless noted previously. Review of patient's allergies indicates: No Known Allergies Medications, Past Medical History, Past Surgical History reviewed and documented in Epic. See detailed report if needed. Pertinent Labs/Test Results: No components found for: PLTS, INR Creatinine AYANA (mg/dL) Date Value 07/18/2022 58 Hemoglobin A1C (%) Date Value 01/28/2022 6.2 (H) 12/22/2019 6.8 (H) Lab Results Component Value Date/Time AMPHETAMINES - [facility] Negative 07/18/2022 10:08 AM AMPHETAMINES, SCRN - [facility] Negative 01/28/2022 01:06 PM BENZODIAZEPINES - [facility] Negative 07/18/2022 10:08 AM METHADONE METABOLITE - [facility] Negative 07/18/2022 10:08 AM OXYCODONE / OXYMORPHONE - [facility] Negative 07/18/2022 10:08 AM OXYCODONE, CONFIRM - [facility] 3,142 (H) 01/28/2022 01:06 PM CANNABINOIDS - [facility] Negative 07/18/2022 10:08 AM Imaging: I personally reviewed the imaging and my findings were . RADIOLOGY EXAM - MRI (IMAGES ONLY, NO REPORT) This is an imaging study not interpreted or resulted by a [facility] or [facility] contracted radiologist. Objective Physical Exam: Vital Signs: LMP 06/01/2005 There is no height or weight on file to calculate BMI. General: No apparent distress. Eyes: pupils equal and round, sclera white, pupils midsize. ENT: mucous membranes moist Resp: Non-labored breathing CV: Extremities warm and well-perfused. Psych: Oriented; affect warm, insight good. Skin: No rashes or lesions appreciated on exposed skin Neuromuscular Exam: Facet loading neg, SLR pos, TTT over lumbar spine Assessment: Krystin is a 62 year old year-old female with: Lumbar radicular pain History of lumbar fusion Plan: The patient is undergoing left L1/2 or L2/3 MIKE today to alleviate her pain and improve her function. The risks, benefits and alternatives to the procedure were reviewed at length and the patient was provided the opportunity to ask questions which were answered to their voiced understanding. Following this comprehensive discussion, the patient opted to proceed. The patient was consented to theprocedure following this comprehensive conversation. Juan M Borrero DO OR [facility], Operating Room [facility] [address] [facility] [place] [address] documented in this encounter Nursing Notes * Rhonda Cho RN - 01/01/2023 10:07 AM EDT Visited by Dr Borrero. Verbalized understanding of discharge directions. Ready for discharge to home. * Meli Eckert RN - 01/01/2023 10:00 AM EDT Bandvlad applied, pt to pacu2. * Meli Eckert RN - 01/01/2023 9:50 AM EDT Patient tolerating pain management injection well. documented in this encounter OR Notes * OR Surgeon - Juan M Borrero DO - 01/01/2023 10:00 AM EDT INTERLAMINAR LUMBAR EPIDURAL STEROID INJECTION DATE: 01/01/2023 PHYSICIAN: Juan M Borrero DO PREOPERATIVE DIAGNOSIS: Lumbar spondylosis with lumbar radiculopathy. POSTOPERATIVE DIAGNOSIS: Lumbar spondylosis with lumbar radiculopathy. PROCEDURE PERFORMED: L2/3 interlaminar epidural steroid injection on the left side with a midline trajectory. Fluoroscopy for precise needle placement. ANESTHESIA: Local infiltration with 1% lidocaine. MONITORS: Automatic blood pressure cuff, pulse oximetry. There was no assistant athletic trainer, EBL or drains placed during this procedure. INDICATIONS: I had the pleasure of seeing Krystin Jaffe ([id number]) in the pain management clinic at the the [facility] today. Krystin Jaffe is a 62 year old year-old femalehas a history of lumbar radiculopathy. she is here today for an interlaminar lumbar epidural steroid injection today. MEDICATIONS: No current facility-administered medications for this encounter. ALLERGIES: Review of patient's allergies indicates: No Known Allergies REVIEW OF SYSTEMS: Negative for fever, chills, chest pain, SOB, bleeding abnormalities, nausea, vomiting, diarrhea, worsening edema, or new rashes. FOCUSED PHYSICAL EXAMINATION: The patient is awake, alert and oriented, and is in no acute distress. Vital signs are stable. The patient is afebrile. The rest of the PE is essentially unchanged from the patient's recent visit to our office. I explained the procedure to the patient including the risks, benefits and alternatives to the procedure. The risks discussed with the patient included but were not limited to: bleeding, infection, and damage to surrounding nerves, tissues, and organs, paralysis, increased pain, pain at the site ofinjection, allergic reaction, blood pressure instability, seizures, heart block, headaches, increase in blood sugar, worsening of glaucoma, blindness, manic episodes, mood instability, . Alternatives to the procedure were also explained and include: do nothing, surgery, medications, and physical therapy. The patient verbalized understanding and was willing to proceed. PROCEDURE IN DETAIL: An informed consent was obtained. The patient was taken to the procedure room,was positively identified by the staff and attending physician. The patient was positioned prone onthe procedure bed. Vital signs were monitored as above and remained stable throughout the procedure. The skin was prepped and draped in a standard sterile fashion. A surgical pause time-out was performed and agreed upon by the members of the team. Fluoroscopic view of the lumbar spine was obtained and the area of interest was identified. The skin and subcutaneous tissues were anesthetized using 1% lidocaine and 25-gauge 1-1/2 inch needle. After that, a 20-gauge, 3.5-inch epidural needle was advanced towards the L2/3 interlaminar window in the left paramedian position. AP, contralateral oblique and lateral views were used to assess appropriate needle position. Loss of resistance to air technique was utilized and was obtained at 8 cm from the skin. The needle's position was additionally verified by injecting radiopaque dye, which showed spread of the dye in the epidural space in AP and lateral views. After negative aspiration for CSF and blood, 40 mg of Kenalog diluted in 2 mL of 1% lidocaine and 1mL of sterile preservative freenormal saline was injected into the epidural space. The needle was withdrawn. The patient toleratedthe procedure well. This was a technically challenging but atraumatic and well-tolerated procedure. COMPLICATIONS: None. DISPOSITION: No follow-ups on file. 1. Return to clinic in 1-2 months for follow-up evaluation, sooner as needed. 2. Resume activity as tolerated. 3. Patient can drive after 12-24 hours if no weakness noted. 4. The patient will monitor their blood glucose over the next week as instructed and was advised tocontact us if the reading is greater than 250mg/dL or if they develop any signs or symptoms of hyperglycemia. Juan M Borrero DO OR [facility], Operating Room [facility] [address] [facility] [place] [phone] documented in this encounter Plan of Treatment Upcoming Encounters Date Type Specialty Care Team Description 02/26/2023 Telemedicine Pain Medicine Day, GUY Reed [address] [place] [address] [place] [id number] 03/20/2023 Office Visit Family Medicine Mekhi Reyes DO [address] [place] [address] Scheduled Procedures Name Priority Associated Diagnoses Date/Ti me INJECTION SPINE LUMBAR OR SACRAL Lumbar radiculopathy 01/01/2023 9:42 AM EDT Health Maintenance Due Date Last Done Comments [...] ASSESSMENT COMPLETED IN PAST YEAR FOR COPD 12/25/2023 01/01/2023 Lipid Panel 01/28/2027 01/28/2022, 2 12/2021, 05/13/2021, [...] Not on filedocumented as of this encounter Procedures Procedure Name Priority Date/Time Associated Diagnosis Comments FLUORO INTERVENTIONAL PAIN PROCEDURE NONBILLABLE Routine 01/01/2023 10:05 AM EDT documented in this encounter Results * FLUORO INTERVENTIONAL PAIN PROCEDURE NONBILLABLE (01/01/2023 10:05 AM EDT) Narrative Scheduling, Silent - 01/01/2023 10:05 AM EDT This procedure will not be read by a Radiologist. Please see operative note. Juan M SIMON FLUOROSCOPY documented in this encounter Administered Medications Inactive Administered Medications - up to 3 most recent administrations Medication Order MAR Action Action Date Dose Rate Site Iohexol (Omnipaque 180) inj 0.5 mL 0.5 mL, Injection, ONCE, On Claritza 01/01/23 at 1000, For 1 dose Given 01/01/2023 9:57 AM EDT 1 mL Other -Specify lidocaine 1 % inj 20 mg 20 mg (2 mL), Subcutaneous, ONCE, On Claritza 01/01/23 at 1000, For 1 dose Given 01/01/2023 9:49 AM EDT 5 mL O ther-Specify Triamcinolone Acetonide (Kenalog) 40 MG/ML inj 40 mg 40 mg, Injection, ONCE, On Claritza 01/01/23 at 1000, For 1 dose Given 01/01/2023 9:58 AM EDT 40 mg Other -Specify documented in this encounter Active and Recently Administered Medications Times are shown in EDT. Scheduled Medication Order 12/30/2022 12/31/2022 01/01/2023 Iohexol (Omnipaque 180) inj 0.5 mL (COMPLETED) 0.5 mL, Injection, ONCE, On Claritza 01/01/23 at 1000, For 1 dose 0957 (Given - Provid er: Meli Eckert RN - Comment: L2, L3) lidocaine 1 % inj 20 mg (COMPLETED) 20 mg (2 mL), Subcutaneous, ONCE, On Claritza 823 at 1000, For 1 dose 0949 (Given - Provid er: Meli Eckert RN - Comment: L2, L3) Triamcinolone Acetonide (Kenalog) 40 MG/ML inj 40 mg (COMPLETED) 40 mg, Injection, ONCE, On Claritza 823 at 1000, For 1 dose 0958 (Given - Provid er: Meli Eckert RN - Comment: L2, L3) documented in this encounter Care Teams Chorus Dancer Relationship Specialty Start Date End Date Mekhi Reyes, DO [address] [place] [address] PCP - General Internal Medicine 12/10/22 documented as of this encounter
--- OUTSIDE RECORDS SUMMARY | 2023-04-10 08:56 | External Medical Summary | Summary of Care ---
Author Name Unknown Organization [facility] Address [address] [place] [address] Phone [phone] Care Team Providers Care Alternative Medicine Practitioner Name Role Phone Mekhi Reyes Primary Care Provid er Reason for Visit * Reason Onset Date Comments Referral 12/30/2022 [facility] Discharge ( Pain ) Encounter Details Date Type Department Care Team Description 12/30/2022 Telephone Pharmacy [address] [phone] Pharmacist2, [facility] [address] [address] Referral (MTD Discharge ( Pain ) ) Allergies No known active allergiesdocumented as of this encounter (statuses as of 12/30/2022) Medications Medication Sig Dispensed Refills Start Date End Date Status Vitamin D3 1.25 MG (92082 UT) Oral Capsule Take 1 Capsule by [...] as needed for Pain, Severe. 60 Tablet 11/18/2022 Active Gabapentin 800 MG Oral Tablet [...] as of this encounter (statuses as of 12/30/2022) Active Problems Problem Noted Date Colonic stricture [...] as of this encounter (statuses as of 12/30/2022) Resolved Problems Problem Noted Date Resolved Date [...] as of this encounter (statuses as of 12/30/2022) Immunizations Name Administration Dates Next Due COVID-19 mRNA, LNP-s, No Pre serve, 2-Dose Series ([employer]) 05/15/2021,09/12/2020,08/22/2020 Hepatitis B, 20+ yrs 11/19/2021,05/20/20 21(Deferred: Contraindication),11/13/2020 12/13/2020 Pneumococcal Conjugate Vacc, 13 Valent (Prevnar) 04/20/2018 Pneumococcal Conjugate Vacci ne, 20-valent ([id number]) 01/27/2022 Seasonal Influenza Virus Vac cine, Unspecified [...] encounter Miscellaneous Notes * Telephone Encounter - Omar Burt RPh - 12/30/2022 9:28 AM EDT Noted. Per chart review, referring provider placed interventional pain and MTM pain referral. Patient no longer sees referring provider. Will discharge patient at this time and make new PCP aware, initial appt to establish with provider is March. Patient may be re-referred if needed Omar Burt Clinical Pharmacist 12/30/2022, 9:31 AM * Telephone Encounter - Mary MARIO Lux - 12/30/2022 8:48 AM EDT Patient Phone Numbers Spoke to pt to reschedule 11/18 no show return pain appt. Pt states she was advised by PCP that she did not need MTDM pain management and that the referral she intended to put in for her should have been for interventional pain. Pt does not want to continue to follow with MTDM. If appropriate pleasedischarge pt from [facility] services at this time. Thank you, Mary [place] [employer] [facility] (formerly [employer]) [phone] 12/30/2022,8:49 AM documented in this encounter Plan of Treatment Upcoming Encounters Date Type Specialty Care Team Description 12/30/2022 Pharmacy Pharmacy Pharmacist2, [facility] [address] [place] [address] DDD (degenerative disc disease), lumbar* 01/01/2023 Hospital Encounter Surgery Juan M Borrero, DO [address] [place] [phone] 01/01/2023 Surgery Surgery Juan M Borrero, DO [address] [place] [phone] INJECTION SPINE LUMBAR OR SACRAL 03/20/2023 Office Visit Family Medicine Mekhi Reyes, [address] [place] [address] Scheduled Procedures Name Priority Associated Diagnoses Date/Ti me INJECTION SPINE LUMBAR OR SACRAL Lumbar radiculopathy 01/01/2023 9:15 AM EDT Health Maintenance Due Date Last [...] COMPLETED IN PAST YEAR FOR COPD 12/25/2023 12/24/2022 Lipid Panel 01/28/2027 01/28/2022, 08/31, 05/13/2021, Additional [...] filedocumented as of this encounter Care Teams Alternative Medicine Practitioner Relationship Specialty Start Date End Date Mekhi Reyes, [address] [place] [address] PCP - General Internal Medicine 12/10/22 documented as of this encounter
--- OUTSIDE RECORDS SUMMARY | 2023-04-10 08:57 | External Medical Summary | Summary of Care ---
Author Name Unknown Organization [facility] Address [address] [place] [address] Phone [phone] Care Team Providers Care Motivational Speaker Name Role Phone Faina Samayoa MD Primary Care Prov ider Reason for Referral * Evaluate & Treat - Unlimited Visits (Within 10 days (routine)) - Authorized Specialty Diagnoses / Procedures Referred By Leif ibrahim Referred To Contact Physical Therapy / Physical Medicine And Rehab Diagnoses Chronic radicular lumbar pain Failed back syndrome of lumbar spine DDD (degenerative disc disease), lumbar Juan M Borrero DO [address] [facility] [address] Referral ID Status Reason Start Date Expiration Date Visits Requested Visits Authorized [id number] Authorized Specialty Services Required 12/03/2022 999 [id number] Question Answer Referral Priority Within 10 days (routine) Comments Evaluate and treat. Consider marek extension exercises, core strengthening/ROM/flexibility exercises, postural retraining, therapeutic massage, TENS trial or as otherwise indicated. Reason for Visit * Reason Comments Back Pain * Evaluate & Treat - Unlimited Visits (Within 10 days (routine)) - Authorized Specialty Diagnoses / Procedures Referred By Leif ibrahim Referred To Contact Pain Management / Pain Medicine Diagnoses DDD (degenerative disc disease), lumbar Chronic pain syndrome Faina Samayoa MD [address] [place] [id number] Referral ID Status Reason Start Date Expiration Date Visits Requested Visits Authorized [id number] Authorized Specialty Services Required 10/22/2022 [id number] Encounter Details Date Type Department Care Team Description 12/03/2022 Office Visit [facility] Center, [facility] [address] [place] [address] G[place]ell Juan M Ray, [address] [place] [phone] Chronic radicular lumbar pain*; Failed back syndrome of lumbar spine; DDD (degenerative disc disease), lumbar Allergies No known active allergiesdocumented as of this encounter (statuses as of 12/03/2022) Medications Medication Sig Dispensed Refills Start Date End Date Status Mercaptopurine 50 MG Oral Tablet (Purinethol) 0 10/02/2020 Active Vitamin D3 1.25 MG (71571 UT) Oral Capsule Take 1 Capsule by [...] 8 weeks. 1 Each 0 01/27/2022 Active Albuterol Sulfate HFA 108 (90 Base) MCG/ACT Inhalation Aerosol Solution INHALE 2 PUFFS BY MOUTH EVERY FOUR HOURS NEEDED FOR SHORTNESS OF BREATH OR WHEEZING 8.5 g 5 02/10/2022 Active Additional Information Patient not taking.Reported on 11/18/2022 Trelegy Ellipta 100-62.5-25 MCG/ACT Aerosol Powder Breath [...] bedtime. 270 Tablet 3 11/18/2022 3 Active Hospital, Clinic, or Other Facility Administered Medication Ordered Dose Route Frequency Start Date End Date Status Albuterol Sulfate (Proventil) (2.5 MG/3ML) 0.083% inhalation solution 2.5 mgIndications:Screening for respiratory condition 2.5 mg NEBULIZER ONCE PRN 04/01/2022 Active documented as of this encounter (statuses as of 12/03/2022) Active Problems Problem Noted Date Colonic stricture [...] as of this encounter (statuses as of 12/03/2022) Resolved Problems Problem Noted Date Resolved Date [...] as of this encounter (statuses as of 12/03/2022) Immunizations Name Administration Dates Next Due COVID-19 mRNA, LNP-s, No Pre serve, 2-Dose Series (Aseptia) 05/15/2021,09/12/2020,08/22/2020 Hepatitis B, 20+ yrs 11/19/2021,05/20/20 21(Deferred: Contraindication),11/13/2020 12/13/2020 Pneumococcal Conjugate Vacc, 13 Valent (Prevnar) 04/20/2018 Pneumococcal Conjugate Vacci ne, 20-valent ([id number]) 01/27/2022 Seasonal Influenza Virus Vac cine, Unspecified [...] as of this encounter Progress Notes * Juan M Borrero, DO - 12/03/2022 8:21 AM EDT Interventional Pain Consult Dear Faina Samayoa MD, thank you for your kind referral of Krystin Jaffe. Chief Complaint: Chief Complaint Patient presents with Back Pain History of Present Illness: As you know, Krystin Jaffe is a very pleasant 62 year old female with a past medical history significant for Type 2 DM, mood disorder (denies BPD), crohns disease, COPD, history of instrumented lumbar fusion and laminectomy, HTN, HLD, partial resection of colon, interstitial pulmonary disease, and tachycardia who was referred to the pain clinic for evaluation for failed back surgical syndrome (post-laminectomy syndrome) and radicular lower back pain. PSH noted: L3-S1 laminectomy with posterior instrumented fusion with L4/5, L5/S1 discectomy. The pain is located in the lower back and left>right upper leg but not past the knee. She describes it as a burning, shooting, stabbing painful sensation. The pain started about 2-3 months ago, following no noticeable injury. Aggravating factors include: doing dishes, prolonged standing. Alleviating factors include: nothing. The pain is present 100 % of time. Her current pain score is 10/10. Her pain at its least is 5 / 10. Her worst pain is 10 / 10. Denies weakness. Denies numbness. Denies bowel or bladder incontinence. Denies symptoms of saddle anesthesia. Denies fevers/chills/night sweats. Denies unintentional weight loss. Current Pertinent Medications: Tramadol 50mg 1-2 times daily prn Celecoxib 100mg 1 times daily prn Duloxetine 60mg qhs Medications Trialed for this Issue Previously: Acetaminophen: Yes, explain: helps Steroids: No, explain: NSAIDS: Yes, explain: Anticonvulsants: Yes, explain: Gabapentin helps Muscle Relaxants: No, explain: Topical Agents: No, explain: Anti-Depressants: Yes, explain: Opioids: Yes, explain: tramadol Other: Pertinent Medications Poorly Tolerated Previously: denies Interventional Pain Procedures: denies Pertinent Surgeries: Multiple surgeries, result is L3-S1 posterior instrumented fusion and laminectomies Physical Therapy: Following last surgery Other Therapies: Psychosocial Factors: She denies feeling depressed. She denies feeling anxiety. She denies} any suicidal or homicidal ideation.She denies consulting with a behavorial health specialist before. She denies tobacco use. She denies} alcohol use. She denies personal history of substance abuse. She denies family history of substance abuse. She denies pending litigation, worker's compensation, ordisability claims related to reported issue. Review of Systems: A comprehensive 14-pt ROS were of reviewed with the patient including difficulty with sleep, snoring, aspiration history, dysphagia, stomach pain, nausea and vomiting, severe headaches, confusion, open skin lesions or wounds, chest pain, shortness of breath, excessive thirst, somnolence, dysuria, incomplete bladder emptying, easy bruising, recent clotting problems or bleeding, depression or rushed thoughts unless noted previously. Past Medical History: Diagnosis Date NO KNOWN PROBLEMS Past Surgical History: Procedure Laterality Date INFORMATION Lumbar surgery X 4 LIGATE/CUT OVIDUCT(S) Tubal Ligation,Non Laparoscopic REMOVAL OF APPENDIX Appendectomy REMOVE TONSILS & ADENOIDS, UNDER 12 T & A, age<12 REPAIR INGUINAL HERNIA, UNDER AGE 5 Inguinal Hernia Repair,6mo-5yr, Right Social History Socioeconomic History Marital status: Spouse name: Not on file Number of children: Not on file Years of education: Not on file Highest education level: Not on file Occupational History Not on file Tobacco Use Smoking status: Former Packs/day: 2.00 Types: Cigarettes Smokeless tobacco: Never Vaping Use Vaping Use: Never used Substance and Sexual Activity Alcohol use: No Drug use: No Sexual activity: Yes Other Topics Concern Not on file Social History Narrative Not on file Social Determinants of Health Financial Resource Strain: Not on file Food Insecurity: No Food Insecurity Worried About Running Out of Food in the Last Year: Never true Ran Out of Food in the Last Year: Never true Transportation Needs: Not on file Physical Activity: Not on file Stress: Not on file Social Connections: Not on file Intimate Partner Violence: Not on file Housing Stability: Not on file Patient has no known allergies. Current Outpatient Medications Medication Sig Dispense Refill Vitamin D3 1.25 MG (23582 UT) Oral Capsule Take 1 Capsule by mouth in the morning. Womens Multi Oral Capsule Take 1 Tablet by mouth daily. Trelegy Ellipta 100-62.5-25 MCG/ACT Aerosol Powder Breath Activated (Zlbxfpnwzls-Qynvyfsgrnqa-Prvfdhtrjf) Inhale 1 Puff by mouth in the morning. Rinse mouth after use. 60 Blister Dosing Unit 6 Celecoxib 100 MG Oral Capsule (CeleBREX) Take 1 Capsule by mouth in the morning. for pain. 90 Capsule 1 Atorvastatin Calcium 40 MG Oral Tablet (Lipitor) Take 1 Tablet by mouth in the morning. 90 Tablet 3 buPROPion HCl ER (XL) 150 MG Oral Tablet Extended Release 24 Hour (Wellbutrin XL) Take 1 Tabletby mouth in the morning. 90 Tablet 3 DULoxetine HCl 60 MG Oral Capsule Delayed Release Particles (Cymbalta) Take 1 Capsule by mouth in the morning. Do not cut, crush or chew. 90 Capsule 3 Pantoprazole Sodium 40 MG Oral Tablet Delayed Release (Protonix) Take 1 Tablet by mouth in the morning. 90 Tablet 3 traZODone HCl 50 MG Oral Tablet (Desyrel) Take 1 Tablet by mouth every night at bedtime. 90 Tablet 3 traMADol HCl 50 MG Oral Tablet (Ultram) Take 1 Tablet by mouth 2 times a day as needed for Pain, Severe. 60 Tablet 3 Gabapentin 800 MG Oral Tablet (Neurontin) Take 1 Tablet by mouth in the morning and 1 Tablet atnoon and 1 Tablet before bedtime. 270 Tablet 3 Mercaptopurine 50 MG Oral Tablet (Purinethol) (Patient not taking: Reported on 07/18/2022) D-Care Glucometer w/Device Kit Use as directed [...] mg intravenously every 8 weeks. 1 Each Albuterol Sulfate HFA 108 (90 Base) MCG/ACT Inhalation Aerosol Solution INHALE 2 PUFFS BY MOUTHEVERY FOUR HOURS NEEDED FOR SHORTNESS OF BREATH OR WHEEZING (Patient not taking: Reported on 11/18/2022) 8.5 g 5 Ipratropium-Albuterol 0.5-2.5 (3) MG/3ML Inhalation Solution (Duoneb) Inhale 3 mL via nebulizerevery 4 hours as needed for Shortness of Breath or Wheezing. 100 mL 2 Current Facility-Administered Medications Medication Dose Route Frequency Provider Last Rate Last Admin Albuterol Sulfate (Proventil) (2.5 MG/3ML) 0.083% inhalation solution 2.5 mg 2.5 mg Nebulizer Once PRN Chel Ozuna PA-C Family History Problem Relation Age of Onset Asthma Mother Hypertension Mother Diabetes Mother Heart Disorder Father Cancer Aunt (Unspecified) maternal, breast Cancer Aunt (Unspecified) maternal, ovary Cancer Uncle (Unspecified) maternal, unknown site Pertinent Labs/Test Results: No components found for: [...] 10:08 AM Imaging: I personally reviewed the scanned lumbar spine MRI, awaiting transfer of lumbar spine MRI images. XR HEEL 2 OR MORE VIEWS EXAM: XR HEEL 2 OR MORE VIEWS HISTORY: pain at achilles tendon, prior injury 1 year ago COMPARISON: None. FINDINGS: Achilles and plantar enthesophytes are seen. There is no focal soft tissue swelling. No acute fracture. Mild osteopenia IMPRESSION: Achilles and plantar enthesophytes Objective Physical Exam: Vital Signs: LMP 06/01/2005 There is no height or weight on file to calculate BMI. General: No apparent distress. Eyes: pupils equal and round, sclera white, pupils midsize. ENT: mucous membranes moist Resp: Non-labored breathing CV: Extremities warm and well-perfused. Psych: Oriented; affect warm, insight good. Skin: No rashes or lesions appreciated on exposed skin Neuromuscular Exam: Upon initial assessment, the patient is seated in a comfortable position. Rises from a seated position without difficulty. Upon inspection there is not evidence of scoliosis. Exam for symmetry and allignment reveals no abnormalities. Muscle bulk appears adequate. There evidence of erythema, edema in the extremities. Palpation does not reveal midline cervical tenderness; There is not cervical paraspinal tenderness BILATERAL. Trigger points were not identified. Range of motion of the cervical spine was full in all planes of motion . Inspection: Rises from a seated position without difficulty. There is not evidence of erythema, edema in the extremities. Gait: Ambulates unassisted; gait is antalgic. Palpation: Palpation does reveal midline lumbar tenderness; There is lumbar paraspinal tenderness bilaterally regions. Trigger points were not identified. PSIS tenderness: none GTB tenderness: none Spine range of motion: There is pain with lumbar extension There is pain with lumbar oblique extension to the right There is pain with lumbar oblique extension to the left There is pain with lumbar flexion Range of motion is grossly intact at the hips, knees and ankles bilaterally. Motor: Motor strength exam reveals: Lower extremities: Right Left Hip flexion: L1,L2,L3 5/5 5/5 Add hips: L2L3 5/5 5/5 Knee flexion: S1 5/5 5/5 Knee extension: L3,L4 5/5 5/5 Dorsiflexion: L4,L5 5/5 5/5 Plantarflexion: S1 5/5 5/5 EHL: L5 5/5 5/5 Sensory: Sensory exam to light touch is intact in the L2-S1 dermatomes in the bilateral lower extremities, globally reduced on the left. Reflexes: Deep tendon reflexes, Right 2+ patellar, 2+ Achilles, Left 2+ patellar, 2+ Achilles, No ankle clonus. Sitting straight leg test Positive on the right 1. Positive on the left. Assessment: Krystin Jaffe is a 62 year old year-old female with: Chronic radicular lumbar pain (Primary) - INJECT DX/THER SUBSTANCE INTERLAMINAR LUMBAR/SACRAL W IMAGE GUIDE; Future; Expected date: 12/04/2022 - PHYSICAL THERAPY REFERRAL OP Failed back syndrome of lumbar spine - INJECT DX/THER SUBSTANCE INTERLAMINAR LUMBAR/SACRAL W IMAGE GUIDE; Future; Expected date: 12/04/2022 - PHYSICAL THERAPY REFERRAL OP DDD (degenerative disc disease), lumbar - INJECT DX/THER SUBSTANCE INTERLAMINAR LUMBAR/SACRAL W IMAGE GUIDE; Future; Expected date: 12/04/2022 - PHYSICAL THERAPY REFERRAL OP Plan: Will plan on left paramedian interlaminar L1/2 or L2/3 LESI under XR guidance. The risks, benefits and alternatives to the procedure were reviewed at length and the patient was provided the opportunity to ask questions which were answered to their voiced understanding. Following this comprehensive discussion, the patient opted to proceed. The patient was advised that they will require a concrete truck driver. Pre-procedural guidance and handout provided. Physical therapy Rx provided. Evaluate and treat. Consider marek extension exercises, core strengthening/ROM/flexibility exercises, postural retraining, therapeutic massage, TENS trial or as otherwise indicated. I spent 50 minutes during this patient's consultation. This time was spent completing multiple critical tasks including review of the patient's medical history via review of the medical record, past images, office visits, and procedures notes. I additionally utilized this time to perform a focused p hysical examination which I used to create a targeted assessment of the patient's pain. Additional time was utilized to create a patient-oriented holistic care plan, for procedure planning (as applicable), in the consideration of medication management, issuing orders, and to explain the plans to the patient and address questions and concerns. This also included the appropriate time to document our care plan. Juan M Borrero DO [facility], [address] [address] documented in this encounter Nursing Notes * Tabitha Zhang LPN - 12/03/2022 8:18 AM EDT Patient here for low back and b/l lower ext pain, L>R No recent PT No hx of injections Lumbar surgery x5-most recent approx 9yrs ago [facility] MRI in August documented in this encounter Plan of Treatment Upcoming Encounters Date Type Specialty Care Team Description 12/03/2022 Pharmacy Pharmacy Pharmacist2, [facility] [address] [place] [address] DDD (degenerative disc disease), lumbar* 12/30/2022 Pharmacy Pharmacy Pharmacist2, [facility] [address] [place] [address] 01/01/2023 Hospital Encounter Surgery Juan M Borrero, DO [address] [place] [phone] 01/01/2023 Surgery Surgery Juan M Borrero, DO [address] [place] [phone] INJECTION SPINE LUMBAR OR SACRAL 03/20/2023 Office Visit Family Medicine Mekhi Reyes Remberto, DO [address] [place] [address] Scheduled Orders Name Type Priority Associated Diagnoses Orde r Schedule INJECT DX/THER SUBSTANCE INTERLAMINAR LUMBAR/SACRAL W IMAGE GUIDE Procedures Routine Chronic radicular lumbar pain Failed back syndrome of lumbar spine DDD (degenerative disc disease), lumbar Expected: 12/04/2022, Expires: 03/05/2023 Scheduled Procedures Name Priority Associated Diagnoses Date/Ti me INJECTION SPINE LUMBAR OR SACRAL Lumbar radiculopathy 01/01/2023 9:15 AM EDT Scheduled Referrals Name Type Priority Associated Diagnoses Orde r Schedule PHYSICAL THERAPY REFERRAL OP Referral Within 10 days (routine) Chronic radicular lumbar pain Failed back syndrome of lumbar spine DDD (degenerative disc disease), lumbar Ordered: 12/03/2022 Health Maintenance Due Date Last Done Comments DTaP,Tdap,and Td Vaccines (1 - Tdap) 1981 Cologuard 2007 Fecal Occult Blood Test 2007 Sigmoidoscopy 2007 *COPD SEVERITY VERIFIED BY PFT 09/05/2020 COVID-19 Vaccine (4 - Booster for Pfizer series) 07/10/2021 05/15/2021, 09/12/2020, 08/22/2020 Albumin/Creatinine Ratio [...] DIABETES-FOOT EXAM 11/19/2023 11/18/2022, 0 11/19/2021, 09/13/2020 O2 ASSESSMENT COMPLETED IN PAST YEAR FOR COPD 11/19/2023 11/18/2022 Pap Smear 12/18/2025 12/18/2020 Lipid Panel 01/28/2027 01/28/2022, 08/31, 05/13/2021, Additional [...] as of this encounter Visit Diagnoses Diagnosis Chronic radicular lumbar pain- Primary Thoracic or lumbosacral neuritis or radiculitis, unspecified Failed back syndrome of lumbar spine Postlaminectomy syndrome, lumbar region DDD (degenerative disc disease), lumbar Degeneration of lumbar or lumbosacral intervertebral disc DDD (degenerative disc disease), lumbar- Primary Degeneration of lumbar or lumbosacral intervertebral disc Lumbar radiculopathy Thoracic or lumbosacral neuritis or radiculitis, unspecified documented in this encounter Care Teams Motivational Speaker Relationship Specialty Start Date End Date Faina Samayoa MD [address] [place] [id number] PCP - General Family Medicine 03/13/22 documented as of this encounter
--- OUTSIDE RECORDS SUMMARY | 2023-04-10 08:57 | External Medical Summary | Summary of Care ---
Author Name Unknown Organization [facility] Address [address] [place] [address] Phone [phone] Care Team Providers Care Communications Designer Name Role Phone Faina Samayoa MD Primary [...] lumbar Juan M Borrero DO [address] [facility] [address] Referral ID Status Reason Start Date Expiration Date Visits Requested Visits Authorized [id number] Authorized Specialty Services Required 12/03/[phone] [...] lumbar Chronic pain syndrome Faina Samayoa MD [address] [place] [id number] Referral ID Status Reason Start Date Expiration Date Visits Requested Visits Authorized [id number] Authorized Specialty Services Required 10/22/[phone] Encounter Details Date Type Department Care Team Description 12/03/2022 Office Visit Interventional Pain Center, [facility] [address] [place] [address] [place] Juan M Ray, [address] [place] [phone] Chronic radicular lumbar pain*; Failed back syndrome of lumbar spine; DDD (degenerative disc disease), lumbar Allergies No known active allergiesdocumented as of this encounter (statuses as of 12/03/2022) Medications Medication Sig Dispensed Refills Start Date End Date Status Mercaptopurine 50 MG Oral Tablet (Purinethol) 0 10/02/2020 Active Vitamin D3 1.25 MG (91621 UT) Oral Capsule Take 1 Capsule by [...] mRNA, LNP-s, No Pre serve, 2-Dose Series (GupShup) 05/15/2021,09/12/2020,08/22/2020 Hepatitis B, 20+ yrs 11/19/2021,05/20/20 21(Deferred: Contraindication),11/13/2020 12/13/2020 Pneumococcal Conjugate Vacc, 13 Valent (Prevnar) 04/20/2018 Pneumococcal Conjugate Vacci ne, 20-valent ([id number]) 01/27/2022 Seasonal Influenza Virus Vac cine, Unspecified [...] abuse. She denies pending litigation, worker's compensation, or disability claims related to reported issue. Review of [...] Sig Dispense Refill Vitamin D3 1.25 MG (80495 UT) Oral Capsule Take 1 Capsule by mouth in the morning. Womens Multi Oral Capsule Take 1 Tablet by mouth daily. Trelegy Ellipta 100-62.5-25 MCG/ACT Aerosol Powder Breath Activated (Dehtocbgffq-Ootlytxgpfxz-Ggcjksouev) Inhale 1 Puff by mouth in the [...] was advised that they will require a independent driver. Pre-procedural guidance and handout provided. Physical [...] Juan M Borrero DO [facility], [address] [address] documented in this encounter Nursing Notes * Tabitha Zhang LPN - 12/03/2022 8:18 AM EDT Patient here for low back and b/l lower ext pain, L>R No recent PT No hx of injections Lumbar surgery x5-most recent approx 9yrs ago [facility] MRI in August documented in this encounter Plan of Treatment Upcoming Encounters Date Type Specialty Care Team Description 12/03/2022 Pharmacy Pharmacy Pharmacist2, [facility] [address] [place] [address] DDD (degenerative disc disease), lumbar* 12/30/2022 Pharmacy Pharmacy Pharmacist2, [facility] [address] [place] [address] 01/01/2023 Hospital Encounter Surgery Juan M Borrero, DO [address] [place] [phone] 01/01/2023 Surgery Surgery Juan M Borrero, DO [address] [place] [phone] INJECTION SPINE LUMBAR OR SACRAL 03/20/2023 Office Visit Family Medicine Mekhi Reyes, DO [address] [place] [address] Scheduled Orders Name Type Priority Associated Diagnoses [...] unspecified documented in this encounter Care Teams Communications Designer Relationship Specialty Start Date End Date Faina Samayoa MD [address] [place] [id number] PCP - General Family Medicine 03/13/22 documented as of this encounter
--- OUTSIDE RECORDS SUMMARY | 2023-04-10 08:57 | External Medical Summary | Summary of Care ---
Author Name Unknown Organization [facility] Address [address] [place] [address] Phone [phone] Care Team Providers Care Management Lecturer Name Role Phone BessiebeverleyMekhi Remberto Primary Care Provid er Reason for Referral * Medication Prior Authorization - Closed Specialty Diagnoses / Procedures Referred By Leif ibrahim Referred To Contact Diagnoses COPD exacerbation (HCC) Neri Mirza PA-C [address] [place] [phone] Referral ID Status Reason Start Date Expiration Date Visits Re quested Visits Authorized [id number] Closed [phone] Reason for Visit * Reason Comments Cough Congestion Encounter Details Date Type Department Care Team Description 12/16/2022 Office Visit Family [address] [phone] Neri Mirza PA-C [address] [place] [phone] COPD exacerbation (HCC)* Allergies No known active allergiesdocumented as of this encounter (statuses as of 12/16/2022) Medications Medication Sig Dispensed Refills Start Date End Date Status Vitamin D3 1.25 MG (45363 UT) Oral Capsule Take 1 Capsule by [...] 270 Tablet 3 3 05/17/20 23 Active predniSONE 20 MG Oral Tablet (Deltasone) 1 tab 3 times a day for 3 days, then 1 tab 2 times a day for 3 days, then 1 tab daily for 3 days 18 Tablet 0 3 Active Albuterol Sulfate HFA 108 (90 Base) MCG/ACT Inhalation Aerosol SolutionIndicatio ns:COPD exacerbation (HCC) Inhale 2 Puffs by mouth every 6 hours as needed for Shortness of Breath or Wheezing. 8.5 g 5 3 Active Spacer/Aero-Holdi ng Chambers Device Use with inhaler. 1 Each 0 3 Active Mercaptopurine 50 MG Oral Tablet (Purinethol) 0 1 12/17/19 23 Discontinued Albuterol Sulfate HFA 108 (90 Base) MCG/ACT Inhalation Aerosol Solution INHALE 2 PUFFS BY MOUTH EVERY FOUR HOURS NEEDED FOR SHORTNESS OF BREATH OR WHEEZING 8.5 g 5 2 12/17/19 23 Discontinued Hospital, Clinic, or Other Facility Administered Medication Ordered Dose Route Frequency Start Date End Date Status Albuterol Sulfate (Proventil) (2.5 MG/3ML) 0.083% inhalation solution 2.5 mgIndications:Screening for respiratory condition 2.5 mg NEBULIZER ONCE PRN 04/01/2022 Active albuterol-ipratropium (Duoneb) inhalation solution 3 mLIndications:COPD exacerbation (HCC) 3 mL NEBULIZER ONCE 12/16/2022 12/16/2022 Ended documented as of this encounter (statuses as of 12/16/2022) Active Problems Problem Noted Date Colonic stricture [...] as of this encounter (statuses as of 12/16/2022) Resolved Problems Problem Noted Date Resolved Date [...] as of this encounter (statuses as of 12/16/2022) Immunizations Name Administration Dates Next Due COVID-19 mRNA, LNP-s, No Pre serve, 2-Dose Series ([employer]) 05/15/2021,09/12/2020,08/22/2020 Hepatitis B, 20+ yrs 11/19/2021,05/20/20 21(Deferred: Contraindication),11/13/2020 12/13/2020 Pneumococcal Conjugate Vacc, 13 Valent (Prevnar) 04/20/2018 Pneumococcal Conjugate Vacci ne, 20-valent ([id number]) 01/27/2022 Seasonal Influenza Virus Vac cine, Unspecified Formulation 04/21/2020,02/08/2019,03/04/2018,02/04 Seasonal Influenza, Quadriva lent, No Preserve, IM 03/01/2020 Seasonal Influenza, Quadriva lent, No Preserve, Mdck 03/01/2017 Zoster Vaccine Recombinant (Shingrix) 07/18/2022,01/27/2022 07/29/2022 documented as of this encounter Social History Tobacco Use Types Packs/Day Years Used Date Smoking Tobacco: Former Cigarettes 2 Smokeless Tobacco: Never Tobacco Cessation:Counseling Given: Yes Alcohol Use Standard Drinks/Week Comments No 0 [...] Sign Reading Time Taken Comments Blood Pressure 136/86 12/16/2022 5:04 PM EDT Pulse 98 12/16/2022 5:04 PM EDT Temperature 36.9 C (98.5 F) 12/16/2022 5:04 PM ED T Respiratory Rate 20 12/16/2022 5:04 PM EDT Oxygen Saturation 91% 12/16/2022 5:04 PM EDT Inhaled Oxygen Concentration - - Weight 83.9 kg (185 lb) 12/16/2022 5:04 PM EDT Height - - Body Mass Index 29.86 07/01/2022 10:19 AM EST documented in this encounter Patient Instructions * Patient Instructions* Neri Mirza PA-C - 12/16/2022 5:54 PM EDT Use prednisone as prescribed. Use 2 puffs of her albuterol inhaler with spacer every 6 hours for 5 days or as needed for wheezingor shortness of breath in between. Follow-up in 8 days for recheck. Call sooner for worsening symptoms, fevers, coughing up blood or any new/concerning symptoms. documented in this encounter Progress Notes * Neri Mirza PA-C - 12/16/2022 5:18 PM EDT Images from the original note were not included. History of Present Illness Krystin Jaffe is a 62 year old female that presents for Cough and Congestion Patient presents to the clinic accompanied by her with complaints of cough and congestion. Patient reports over the last few days she is been having a nonproductive cough, congestion, intermittent headache and shortness a breath. By history she does have COPD. She is been using her inhalers without relief of her symptoms. She denies any associated fevers, body aches, lost her smell or taste, exposure, posttussive vomiting. Physical Exam Vitals: 12/16/22 1704 Temp: 36.9 C (98.5 F) Pulse: 98 Resp: 20 SpO2: 91% BP: 136/86 Physical Exam Vitals and nursing note reviewed. Constitutional: General: She is not in acute distress. Appearance: Normal appearance. She is obese. She is not toxic-appearing. HENT: Head: Normocephalic and atraumatic. Nose: Nose normal. No congestion or rhinorrhea. Mouth/Throat: Mouth: Mucous membranes are dry. Pharynx: Oropharynx is clear. No oropharyngeal exudate or posterior oropharyngeal erythema. Eyes: Extraocular Movements: Extraocular movements intact. Conjunctiva/sclera: Conjunctivae normal. Pupils: Pupils are equal, round, and reactive to light. Neck: Vascular: No carotid bruit. Cardiovascular: Rate and Rhythm: Normal rate and regular rhythm. Heart sounds: Normal heart sounds. No murmur heard. No gallop. Pulmonary: Comments: Mild conversational dyspnea. Increased respiratory effort or rate. Lung sounds are diffusely diminished in all rae. No retractions. No chest tenderness. Chest: Chest wall: No tenderness. Abdominal: General: Bowel sounds are normal. There is no distension. Palpations: Abdomen is soft. Tenderness: There is no abdominal tenderness. There is no right CVA tenderness, left CVA tendernessor guarding. Musculoskeletal: Cervical back: Normal range of motion and neck supple. No tenderness. Right lower leg: No edema. Left lower leg: No edema. Lymphadenopathy: Cervical: No cervical adenopathy. Skin: General: Skin is warm and dry. Capillary Refill: Capillary refill takes less than 2 seconds. Neurological: General: No focal deficit present. Mental Status: She is alert. Cranial Nerves: No cranial nerve deficit. Coordination: Coordination normal. Gait: Gait normal. Psychiatric: Mood and Affect: Mood normal. Behavior: Behavior normal. Thought Content: Thought content normal. Judgment: Judgment normal. Assessment and Plan While patient was in the clinic she received a DuoNeb breathing treatment. Reassessment after her treatment showed that she no longer had conversational dyspnea. She was have increased air movement in all rae but was now having wheezing. Additionally I noted that her respiratory effort and respiratory rate has significantly improved. COPD exacerbation (HCC) Patient Instructions Use prednisone as prescribed. Use 2 puffs of her albuterol inhaler with spacer every 6 hours for 5 days or as needed for wheezingor shortness of breath in between. Follow-up in 8 days for recheck. Call sooner for worsening symptoms, fevers, coughing up blood or any new/concerning symptoms. Wrap-Up Time: I spent a total of 20-29 minutes (exact time 29 mins) on the date of service in preparation, delivery, and documentation of the care provided to Krystin Jaffe excluding any time spent in the performance of separately billed services. documented in this encounter Nursing Notes * Edgar Simmons LPN - 12/16/2022 5:05 PM EDT The patient has been properly identified by confirmation of name and date of . Pt c/o cough, congestion, shortness of breath, headache off and on. Denies fevers. Symptoms for the past couple of days. Had not tried anything OTC for symptoms. documented in this encounter Plan of Treatment Upcoming Encounters Date Type Specialty Care Team Description 12/24/2022 Office Visit Family Medicine Neri Mirza PA-C [address] [place] [phone] 12/30/2022 Pharmacy Pharmacy Pharmacist, [address] [phone] 01/01/2023 Hospital Encounter Surgery Juan M Borrero, DO [address] [place] [phone] 01/01/2023 Surgery Surgery Juan M Borrero, DO [address] [place] [phone] INJECTION SPINE LUMBAR OR SACRAL 03/20/2023 Office Visit Family Medicine Mekhi Reyesothy, DO [address] [place] [phone] Scheduled Procedures Name Priority Associated Diagnoses [...] (HCC)- Primary Obstructive chronic bronchitis with exacerbation Lumbar radiculopathy Thoracic or lumbosacral neuritis or radiculitis, unspecified documented in this encounter Administered Medications Inactive Administered Medications - up to 3 most recent administrations Medication Order MAR Action Action Date Dose Rate Site albuterol-ipratropium (Duoneb) inhalation solution 3 mL 3 mL, Nebulizer, ONCE, On Thu12/16/22 at 1800, For 1 dose, 3 mL = 0.5 mg ipratropium/ 2.5 mg albuterol Given 12/16/2022 5:27 PM EDT 3 mL documented in this encounter Care Teams Management Lecturer Relationship Specialty Start Date End Date Mekhi Reyes, [address] [address] PCP - General Internal Medicine 12/10/22 documented as of this encounter
--- OUTSIDE RECORDS SUMMARY | 2023-04-10 08:57 | External Medical Summary | Summary of Care ---
Author Name Unknown Organization [facility] Address [address] [place] [address] Phone [phone] Care Team Providers Care Corrosion Control Technician Name Role Phone Faina Samayoa MD Primary Care Prov ider Encounter Details Date Type Department Care Team Description 11/04/2022 Orders Only Outcomes Research Department [address], [place] [phone] Griselda Weems CHRA [employer] Other*[id number] Allergies No known active allergiesdocumented as of this encounter (statuses as of 11/04/2022) Medications Medication Sig Dispensed Refills Start Date End Date Status Mercaptopurine 50 MG Oral Tablet (Purinethol) 0 10/02/2020 Active Ipratropium-Albuter ol 0.5-2.5 (3) MG/3ML Inhalation Solution (Duoneb) 0 09/12/2020 Active Vitamin D3 1.25 MG (93011 UT) Oral Capsule Take 1 Capsule by [...] OR WHEEZING 8.5 g 5 02/10/2022 Active Pantoprazole Sodium 40 MG Oral Tablet Delayed Release (Protonix) Take 1 Tablet by mouth in the morning. 90 Tablet 1 06/17/2022 Active Trelegy Ellipta 100-62.5-25 MCG/ACT Aerosol Powder Breath Activated (Fluticasone-Umecli dinium-Vilanterol) Inhale 1 Puff by mouth in the morning. Rinse mouth after use. 60 Blister Dosing Unit 6 07/01/2022 Active Gabapentin 800 MG Oral Tablet (Neurontin) Take 1 Tablet by mouth in the morning and 1 Tablet at noon and 1 Tablet before bedtime. 90 Tablet 5 08/15/2022 Active Atorvastatin Calcium 40 MG Oral Tablet (Lipitor)Indication s:Hyperlipidemia with target LDL less than 100 TAKE 1 TABLET BY MOUTH DAILY 90 Tablet 1 09/30/2022 Active traZODone HCl 50 MG Oral Tablet (Desyrel)Indication s:Sleep disorder TAKE 1 TABLET BY MOUTH DAILY AT BEDTIME 90 Tablet 1 09/30/2022 Active DULoxetine HCl 30 MG Oral Capsule Delayed Release Particles (Cymbalta) Take 1 capsules by mouth daily for 7 days, then increase to 2 capsules daily 60 Capsule 3 10/02/2022 Active buPROPion HCl ER (XL) 150 MG Oral Tablet Extended Release 24 Hour (Wellbutrin XL) TAKE 1 TABLET BY MOUTH DAILY 90 Tablet 1 10/12/2022 Active Celecoxib 100 MG Oral Capsule (CeleBREX) Take 1 Capsule by mouth in the morning. for pain. 90 Capsule 1 10/22/2022 Active traMADol HCl 50 MG Oral Tablet (Ultram)Indications :DDD (degenerative disc disease), lumbar,Chronic pain syndrome Take 1 Tablet by mouth 2 times a day as needed for Pain, Severe. 60 Tablet 2 10/22/2022 Active Sulfamethoxazole-Tr imethoprim 800-160 MG Oral Tablet (Bactrim DS) 1 tablet twice daily for 7 days with food 14 Tablet 0 10/22/2022 Active Hospital, Clinic, or Other Facility Administered Medication Ordered Dose Route Frequency Start Date End Date Status Albuterol Sulfate (Proventil) (2.5 MG/3ML) 0.083% inhalation solution 2.5 mgIndications:Screening for respiratory condition 2.5 mg NEBULIZER ONCE PRN 04/01/2022 Active documented as of this encounter (statuses as of 11/04/2022) Active Problems Problem Noted Date COPD, group D, by GOLD 2017 classificati [...] A1c goal of less than 7.0% 08/23/2020 Generalized anxiety disorder 02/12/2017 documented as of this encounter (statuses as of 11/04/2022) Resolved Problems Problem Noted Date Resolved Date [...] as of this encounter (statuses as of 11/04/2022) Immunizations Name Administration Dates Next Due COVID-19 mRNA, LNP-s, No Pre serve, 2-Dose Series ([employer]) 05/15/2021,09/12/2020,08/22/2020 Hepatitis B, 20+ yrs 11/19/2021,05/20/20 21(Deferred: Contraindication),11/13/2020 12/13/2020 Pneumococcal Conjugate Vacc, 13 Valent (Prevnar) 04/20/2018 Pneumococcal Conjugate Vacci ne, 20-valent ([id number]) 01/27/2022 Seasonal Influenza Virus Vac cine, Unspecified [...] Encounters Date Type Specialty Care Team Description 11/18/2022 Office Visit Pharmacy Pharmacist2, [facility] [address] [place] [address] 11/18/2022 Office Visit Family Medicine Faina Samayoa MD [address], [place] [phone] 12/03/2022 Office Visit Pain Medicine Juan M Borrero, [address] [place] [phone] Scheduled Orders Name Type Priority Associated Diagnoses Orde r Schedule MYCODE INITIAL ADULT Lab Routine My[employer] Research Other*[id number] Expected: 11/04/2022 (Approximate), Expires: 11/24/2023 Health Maintenance Due Date Last Done Comments DTaP,Tdap,and Td Vaccines (1 - Tdap) 1981 Cologuard 2007 Fecal Occult Blood Test 2007 Sigmoidoscopy 2007 *COPD SEVERITY VERIFIED BY PFT 09/05/2020 COVID-19 Vaccine (4 - Booster for Pfizer series) 07/10/2021 05/15/2021, 09/12/2020, 08/22/2020 Albumin/Creatinine Ratio 08/23/2021 08/23/2020 Hepatitis B (3 of 3 - 19+ 3-dose series) 04/21/2022 11/19/2021, 11/13/2020 HbA1c 07/29/2022 01/28/2022, 08/31, 05/13/2021, Additional history exists DIABETES-FOOT EXAM 11/19/2022 11/19/2021, 09/13/2020 Depression Screening, Annual for Pts 12 and Over 11/19/2022 11/19/2021 Influenza Vaccine (FLU shot) (Season Ended) 2023 04/21/2020, 03/01/2020, 02/08/2019, Additional history exists DIABETES-EYE EXAM 07/18/2023 07/18/2022, 11/13/2020 Mammogram 07/29/2023 07/29/2022, 04/0 07/2020, 08/30/2020, Additional history exists GFR 09/30/2023 09/29/2022, 06/03, 01/28/2022, Additional history exists O2 ASSESSMENT COMPLETED IN PAST YEAR FOR COPD 10/23/2023 10/22/2022 Pap Smear 12/18/2025 12/18/2020 Lipid Panel 01/28/2027 [...] as of this encounter Visit Diagnoses Diagnosis [employer] Other*[id number] documented in this encounter Care Teams Corrosion Control Technician Relationship Specialty Start Date End Date Faina Samayoa MD [address] [place] [phone] PCP - General Family Medicine 03/13/22 documented as of this encounter
--- OUTSIDE RECORDS SUMMARY | 2023-04-10 08:57 | External Medical Summary | Summary of Care ---
Author Name Unknown Organization [facility] Address [address] [place] [address] Phone [phone] Care Team Providers Care Nutrition Aide Name Role Phone Faina Samayoa MD Primary Care Prov ider Reason for Visit * Reason Comments Appointment Encounter Details Date Type Department Care Team Description 12/03/2022 Pharmacy Pharmacy [address] [phone] Pharmacist2, [facility] [address] [address] DDD (degenerative disc disease), lumbar* Allergies No known active allergiesdocumented as of this encounter (statuses as of 12/03/2022) Medications Medication Sig Dispensed Refills Start Date End Date Status Mercaptopurine 50 MG Oral Tablet (Purinethol) 0 10/02/2020 Active Vitamin D3 1.25 MG (44417 UT) Oral Capsule Take 1 Capsule by [...] mRNA, LNP-s, No Pre serve, 2-Dose Series ([employer]'s [employer]) 05/15/2021,09/12/2020,08/22/2020 Hepatitis B, 20+ yrs 11/19/2021,05/20/20 21(Deferred: Contraindication),11/13/2020 12/13/2020 Pneumococcal Conjugate Vacc, 13 Valent (Prevnar) 04/20/2018 Pneumococcal Conjugate Vacci ne, 20-valent ([id number]) 01/27/2022 Seasonal Influenza Virus Vac cine, Unspecified [...] as of this encounter Progress Notes * LALO Sanders - 12/03/2022 8:46 AM EDT Att 2 Sent patient a MyG message to reschedule pain apt Follow up in 4 weeks if no apt rescheduled with the [facility] pain clinic Thank you, Corby Guerra Residential Mortgage Underwriter 12/03/2022,8:46 AM documented in this encounter Plan of Treatment Upcoming Encounters Date Type Specialty Care Team Description 12/30/2022 Pharmacy Pharmacy Pharmacist2, [facility] [address] [place] [phone] 01/01/2023 Hospital Encounter Surgery Juan M Borrero, [address] [place] [phone] 01/01/2023 Surgery Surgery Juan M Borrero, [address] [place] [phone] INJECTION SPINE LUMBAR OR SACRAL 03/20/2023 Office Visit Family Medicine Mekhi Reyes RembertoDO eliseo [facility] [phone] Scheduled Procedures Name Priority Associated Diagnoses [...] unspecified documented in this encounter Care Teams Nutrition Aide Relationship Specialty Start Date End Date Faina Samayoa MD [address] [place] [phone] PCP - General Family Medicine 03/13/22 documented as of this encounter
--- OUTSIDE RECORDS SUMMARY | 2023-04-10 08:57 | External Medical Summary | Summary of Care ---
Author Name Unknown Organization [facility] Address [address] [place] [address] Phone [phone] Care Team Providers Care Auto Service Mechanic Name Role Phone Mekhi Reyes Primary Care Provid er Reason for Visit * Reason Comments Follow Up F/u on COPD-- doing better per patient. Encounter Details Date Type Department Care Team Description 12/24/2022 Office Visit [address] [phone] Neri Mirza PA-C [address] [place] [id number] COPD exacerbation (HCC)* Allergies No known active allergiesdocumented as of this encounter (statuses as of 12/24/2022) Medications Medication Sig Dispensed Refills Start Date End Date Status Vitamin D3 1.25 MG (01316 UT) Oral Capsule Take 1 Capsule by [...] as of this encounter (statuses as of 12/24/2022) Active Problems Problem Noted Date Colonic stricture [...] as of this encounter (statuses as of 12/24/2022) Resolved Problems Problem Noted Date Resolved Date [...] as of this encounter (statuses as of 12/24/2022) Immunizations Name Administration Dates Next Due COVID-19 mRNA, LNP-s, No Pre serve, 2-Dose Series (Memolane) 05/15/2021,09/12/2020,08/22/2020 Hepatitis B, 20+ yrs 11/19/2021,05/20/20 21(Deferred: Contraindication),11/13/2020 12/13/2020 Pneumococcal Conjugate Vacc, 13 Valent (Prevnar) 04/20/2018 Pneumococcal Conjugate Vacci ne, 20-valent ([id number]) 01/27/2022 Seasonal Influenza Virus Vac cine, Unspecified [...] Sign Reading Time Taken Comments Blood Pressure 144/86 12/24/2022 2:43 PM EDT Pulse 92 12/24/2022 2:43 PM EDT Temperature 36.9 C (98.4 F) 12/24/2022 2:43 PM ED T Respiratory Rate 20 12/24/2022 2:43 PM EDT Oxygen Saturation 94% 12/24/2022 2:43 PM EDT Inhaled Oxygen Concentration - - Weight 82.7 kg (182 lb 4.8 oz) 12/24/2022 2:43 P M EDT Height - - Body Mass Index 29.42 07/01/2022 10:19 AM EST documented in this encounter Patient Instructions * Patient Instructions* Neri Mirza PA-C - 12/24/2022 3:09 PM EDT Continue current medications as prescribed. Monitor blood pressure on a daily basis and if you have 3 days in a row where your blood pressure is elevated above 140/90 please contact the clinic for office follow-up. Keep her upcoming appointment with her primary care provider. Call for any new/concerning symptoms. documented in this encounter Progress Notes * Neri Mirza PA-C - 12/24/2022 3:09 PM EDT Images from the original note were not included. History of Present Illness Krystin Jaffe is a 62 year old female that presents for Follow Up (F/u on COPD-- doing better perpatient. ) Patient presents to the clinic for her previous appointment on December 16, 2022. At her last appointment I examined the patient and found her have a COPD exacerbation. She was prescribed prednisone encouraged to use her albuterol inhaler varus nebulizer every 6 hours and as needed for wheezing or shortness of breath. Patient presents today and subjectively reports that she has all resolution of shortness of breath or wheezing. She has some mild nasal congestion. She subjectively reports she is feeling much better. She had no associated symptoms from her medications. Additionally on arrival at the clinic today she is hypertensive with a blood pressure of 160/100 and a heart rate of 113. Patient has remote history of hypertension and was on metoprolol back in 2000and 2021 but was discontinued after her blood pressure returned to normal. Additionally patient reports she checks her blood pressure at home and has had no recent elevated blood pressure readings. During my assessment of the patient I did recheck her blood pressure and it was 144/86 and her heart rate was 92. At this time I do not feel we need to start antihypertensive. I encouraged her monitor blood pressure at home and if she has 3 days in a row where her blood pressure is elevated above 140/90 she should call the clinic for follow-up. Physical Exam Vitals: 12/24/22 1443 Temp: 36.9 C (98.4 F) Pulse: 92 Resp: 20 SpO2: 94% BP: 144/86 Physical Exam Vitals and nursing note reviewed. Constitutional: General: She is not in acute distress. Appearance: Normal appearance. She is obese. She is not toxic-appearing. HENT: Nose: No congestion. Mouth/Throat: Mouth: Mucous membranes are moist. Pharynx: Oropharynx is clear. Eyes: Extraocular Movements: Extraocular movements intact. Conjunctiva/sclera: Conjunctivae normal. Pupils: Pupils are equal, round, and reactive to light. Neck: Vascular: No carotid bruit. Cardiovascular: Rate and Rhythm: Normal rate and regular rhythm. Pulses: Normal pulses. Heart sounds: Normal heart sounds. No murmur heard. No gallop. Comments: No increase in respiratory effort or rate. No conversational dyspnea. Pulmonary: Effort: Pulmonary effort is normal. Breath sounds: Normal breath sounds. Abdominal: General: Bowel sounds are normal. There is no distension. Palpations: Abdomen is soft. Tenderness: There is no abdominal tenderness. There is no guarding. Musculoskeletal: Right lower leg: No edema. Left lower leg: No edema. Lymphadenopathy: Cervical: No cervical adenopathy. Skin: General: Skin is warm and dry. Capillary Refill: Capillary refill takes less than 2 seconds. Neurological: General: No focal deficit present. Mental Status: She is alert and oriented to person, place, and time. Psychiatric: Mood and Affect: Mood normal. Behavior: Behavior normal. Thought Content: Thought content normal. Judgment: Judgment normal. Assessment and Plan COPD exacerbation (HCC) Patient Instructions Continue current medications as prescribed. Monitor blood pressure on a daily basis and if you have 3 days in a row where your blood pressure is elevated above 140/90 please contact the clinic for office follow-up. Keep her upcoming appointment with her primary care provider. Call for any new/concerning symptoms. Wrap-Up Follow Up: Return if symptoms worsen or fail to improve. Time: I spent a total of 20-29 minutes (exact time 25 mins) on the date of service in preparation, delivery, and documentation of the care provided to Krystin Jaffe excluding any time spent in the performance of separately billed services. documented in this encounter Nursing Notes * Agueda Sinha LPN - 12/24/2022 2:43 PM EDT The patient has been properly identified by confirmation of name and date of . Chief Complaint Patient presents with Follow Up F/u on COPD-- doing better per patient. documented in this encounter Plan of Treatment Upcoming Encounters Date Type Specialty Care Team Description 12/30/2022 Pharmacy Pharmacy Pharmacist2, [facility] [address] [place] [address] 01/01/2023 Hospital Encounter Surgery Juan M Borrero, DO [address] [place] [phone] 01/01/2023 Surgery Surgery Juan M Borrero, [address] [place] [phone] INJECTION SPINE LUMBAR OR SACRAL 03/20/2023 Office Visit Family Medicine Mekhi Reyes DO [address] [place] [address] Scheduled Procedures Name Priority Associated Diagnoses Date/Ti [...] ASSESSMENT COMPLETED IN PAST YEAR FOR COPD 12/17/2023 12/16/2022 Cervical Cancer Screening 12/19/2023 Pap Smear 12/19/2023 12/18/2020 Lipid Panel 01/28/2027 01/28/2022, 08/31, 05/13/2021, [...] unspecified documented in this encounter Care Teams Auto Service Mechanic Relationship Specialty Start Date End Date [place], Mekhi Remberto, [address] [address] PCP - General Internal Medicine 12/10/22 documented as of this encounter
--- OUTSIDE RECORDS SUMMARY | 2023-04-10 08:57 | External Medical Summary | Summary of Care ---
Author Name Unknown Organization [facility] Address [address] [facility] [place] [address] Phone [phone] Care Team Providers Care Psychology Clinician Name Role Phone Faina Samayoa MD Primary Care Prov ider Encounter Details Date Type Department Care Team Description 09/19/2022 Orders Only [facility], [facility] [address] [place] [id number] Juan M Borrero, [address] [place] [phone] Allergies No known active allergiesdocumented as of this encounter (statuses as of 12/03/2022) Medications Medication Sig Dispensed Refills Start Date End Date Status Mercaptopurine 50 MG Oral Tablet (Purinethol) 0 10/02/2020 Active Vitamin D3 1.25 MG (35550 UT) Oral Capsule Take 1 Capsule by [...] 60 Blister Dosing Unit 6 07/01/2022 Active Hospital, Clinic, or Other Facility Administered [...] (Prevnar) 04/20/2018 Pneumococcal Conjugate Vacci ne, 20-valent ([id number]) 01/27/2022 Seasonal Influenza Virus Vac cine, Unspecified [...] at Date Recorded Female 08/23/2020 8:55 AM EDT Job Start Date Occupation Industry Not on file Not on file Not on file documented as of this encounter Plan of Treatment Upcoming Encounters Date Type Specialty Care Team Description 12/03/2022 Pharmacy Pharmacy Pharmacist2, [facility] [address] [place] [address] DDD (degenerative disc disease), lumbar* 12/30/2022 Pharmacy Pharmacy PharmacistKarlene [facility] [address] [place] [address] 01/01/2023 Hospital Encounter Surgery uJan M Borrero, DO [address] [place] [phone] 01/01/2023 Surgery Surgery Juan M Borrero, DO [address] [place] [phone] INJECTION SPINE LUMBAR OR SACRAL 03/20/2023 Office Visit Family Medicine Mekhi Reyes, DO [address] [place] [address] Scheduled Procedures Name Priority Associated Diagnoses [...] Procedure Name Priority Date/Time Associated Diagnosis Comments RADIOLOGY EXAM - MRI (IMAGES ONLY, NO REPORT) Routine 09/19/2022 1:05 PM EDT documented in this encounter Results * RADIOLOGY EXAM - MRI (IMAGES ONLY, NO REPORT) (09/19/2022 1:05 PM EDT) 09/19/2022 1:05 PM EDT Narrative Scheduling, Silent - 12/03/2022 12:26 PM EDT This is an imaging study not interpreted or resulted by a [facility] or [facility] contracted radiologist. uJan M Borrero DO RAD MRI-MRA documented in this encounter Care Teams Psychology Clinician Relationship Specialty Start Date End Date Faina Samayoa MD [address] [place] [address] PCP - General Family Medicine 03/13/22 documented as of this encounter
--- OUTSIDE RECORDS SUMMARY | 2023-04-10 08:57 | External Medical Summary | Summary of Care ---
Author Name Unknown Organization [facility] Address [address] [place] [address] Phone [phone] Care Team Providers Care Soil Field Technician Name Role Phone Faina Samayoa MD Primary Care Prov ider Encounter Details Date Type Department Care Team Description 09/19/2022 Hospital Encounter Radiology Film File [address] [place] [address] Allergies No known active allergiesdocumented as of this encounter (statuses as of 12/04/2022) Medications Medication Sig Dispensed Refills Start Date End Date Status Mercaptopurine 50 MG Oral Tablet (Purinethol) 0 10/02/2020 Active Vitamin D3 1.25 MG (27337 UT) Oral Capsule Take 1 Capsule by [...] Additional Information Patient not taking.Reported on 11/18/2022 Trethuy Ellipta 100-62.5-25 MCG/ACT Aerosol Powder Breath Activated [...] as of this encounter (statuses as of 12/04/2022) Active Problems Problem Noted Date Colonic stricture [...] as of this encounter (statuses as of 12/04/2022) Resolved Problems Problem Noted Date Resolved Date [...] as of this encounter (statuses as of 12/04/2022) Immunizations Name Administration Dates Next Due COVID-19 mRNA, LNP-s, No Pre serve, 2-Dose Series ([employer]) 05/15/2021,09/12/2020,08/22/2020 Hepatitis B, 20+ yrs 11/19/2021,05/20/20 21(Deferred: Contraindication),11/13/2020 12/13/2020 Pneumococcal Conjugate Vacc, 13 Valent (Prevnar) 04/20/2018 Pneumococcal Conjugate Vacci ne, 20-valent ([id number]) 01/27/2022 Seasonal Influenza Virus Vac cine, Unspecified [...] Care Team Description 12/30/2022 Pharmacy [address] [address] [address] 01/01/2023 Hospital Encounter Surgery Juan M Borrero, DO [address] [place] [phone] 01/01/2023 Surgery Surgery Juan M Borrero, DO [address] [place] [phone] INJECTION SPINE LUMBAR OR SACRAL 03/20/2023 Office Visit Family Medicine Amy Mekhi Sr, DO [address] [place] [address], [place] [address] Scheduled Procedures Name Priority Associated Diagnoses Date/Ti [...] interpreted or resulted by a [facility] or [facility] contracted radiologist. Juan M Borrero DO RAD MRI-MRA documented in this encounter Care Teams Soil Field Technician Relationship Specialty Start Date End Date Faina Samayoa MD [address] [place] [phone] PCP - General Family Medicine 03/13/22 documented as of this encounter
--- OUTSIDE RECORDS SUMMARY | 2023-04-10 08:57 | External Medical Summary | Summary of Care ---
Author Name Unknown Organization [facility] Address [address] [place] [address] Phone [phone] Care Team Providers Care Indian Nanny Name Role Phone Mekhi Reyes Primary Care Provid er Reason for Visit * Reason Comments Appointment Encounter Details Date Type Department Care Team Description 12/30/2022 Pharmacy Pharmacy [address] [phone] Pharmacist2, [facility] [address] [address] DDD (degenerative disc disease), lumbar* Allergies No known active allergiesdocumented as of this encounter (statuses as of 12/30/2022) Medications Medication Sig Dispensed Refills Start Date End Date Status Vitamin D3 1.25 MG (48675 UT) Oral Capsule Take 1 Capsule by [...] mRNA, LNP-s, No Pre serve, 2-Dose Series ([employer]) 05/15/2021,09/12/2020,08/22/2020 Hepatitis B, 20+ yrs 11/19/2021,05/20/20 21(Deferred: Contraindication),11/13/2020 12/13/2020 Pneumococcal Conjugate Vacc, 13 Valent (Prevnar) 04/20/2018 Pneumococcal Conjugate Vacci ne, 20-valent ([id number]) 01/27/2022 Seasonal Influenza Virus Vac cine, Unspecified [...] as of this encounter Progress Notes * Mary Medellin, continuous improvement coach - 12/30/2022 8:50 AM EDT Patient Phone Numbers Contacted pt to reschedule 11/18 no show return pain appt. Pt states she was advised by PCP she did not need to continue to see [facility], the referral she had intended to put in should have been for interventional pain. Pt does not wish to continue to follow with [facility] for pain management. If appropriateplease d/c from [facility] services at this time. Thank you, Mary Medellin Battery Charger Tester [facility] ([facility]) [phone] 12/30/2022,8:52 AM documented in this encounter Plan of Treatment Upcoming Encounters Date Type Specialty Care Team Description 01/01/2023 Hospital Encounter Surgery Juan M Borrero DO [address] [place] [phone] 01/01/2023 Surgery Surgery Juan M Borrero DO [address] [place] [phone] INJECTION SPINE LUMBAR OR SACRAL 03/20/2023 Office Visit Family Medicine Mekhi Reyes DO [address] [place] [phone] Scheduled Procedures Name Priority Associated Diagnoses [...] COPD 12/25/2023 12/24/2022 Lipid Panel 01/28/2027 01/28/2022, 2 12/2021, 05/13/2021, [...] unspecified documented in this encounter Care Teams Indian Nanny Relationship Specialty Start Date End Date Mekhi Reyes, [address] [phone] PCP - General Internal Medicine 12/10/22 documented as of this encounter
--- OUTSIDE RECORDS SUMMARY | 2023-04-10 08:57 | External Medical Summary | Summary of Care ---
Author Name Unknown Organization [facility] Address [address] [place] [address] Phone [phone] Care Team Providers Care Flat Knitter Name Role Phone Faina Samayoa MD Primary Care Prov ider Reason for Referral * Medication Prior Authorization - Closed Specialty Diagnoses / Procedures Referred By Leif ibrahim Referred To Contact Diagnoses DDD (degenerative disc disease), lumbar Chronic pain syndrome Faina Samayoa MD [address] [place] [id number] Referral ID Status Reason Start Date Expiration Date Visits Re quested Visits Authorized [id number] Closed 999 999 Reason for Visit * Reason Comments Follow Up 3 MONTH RETURN Encounter Details Date Type Department Care Team Description 11/18/2022 Office Visit Family [address] [phone] Faina Samayoa MD [address] [place] [id number] Type 2 diabetes mellitus with hemoglobin A1c goal of less than 7.0% (HCC)*; DM type 2 nursing care encounter (HCC); Hyperlipidemia with target LDL less than 100; Sleep disorder; DDD (degenerative disc disease), lumbar; Chronic pain syndrome Allergies No known active allergiesdocumented as of this encounter (statuses as of 11/18/2022) Medications Medication Sig Dispensed Refills Start Date End Date Status Mercaptopurine 50 MG Oral Tablet (Purinethol) 0 1 Active Vitamin D3 1.25 MG (57934 UT) Oral Capsule Take 1 Capsule by mouth in the morning. 0 Active Womens Multi Oral Capsule Take 1 Tablet by mouth daily. 0 Active D-Care Glucometer w/Device Kit Use as directed . Use to test BS; e11.9, may substitute for insurance coverage 1 Kit 0 2 Active cfgAdvanceTouch Delica Lancets 30G Use to test blood sugar twice daily; e11.9 200 Each 3 2 Active OneTouch Verio In Vitro Strip (Glucose Blood) Use to test blood sugar twice daily; e11.9 200 Strip 3 2 Active inFLIXimab 100 MG Intravenous Solution Reconstituted Administer 800 mg intravenously every 8 weeks. 1 Each 0 2 Active Albuterol Sulfate HFA 108 (90 Base) MCG/ACT Inhalation Aerosol Solution INHALE 2 PUFFS BY MOUTH EVERY FOUR HOURS NEEDED FOR SHORTNESS OF BREATH OR WHEEZING 8.5 g 5 2 Active Additional Information Patient not taking.Reported on [...] 270 Tablet 3 3 05/17/20 23 Active Ipratropium-Albute rol 0.5-2.5 (3) MG/3ML Inhalation Solution (Duoneb) 0 1 11/19/19 23 Discontinu ed(Refill) Pantoprazole Sodium 40 MG Oral Tablet Delayed Release (Protonix) Take 1 Tablet by mouth in the morning. 90 Tablet 1 3 11/19/19 23 Discontinu ed(Refill) Gabapentin 800 MG Oral Tablet (Neurontin) Take 1 Tablet by mouth in the morning and 1 Tablet at noon and 1 Tablet before bedtime. 90 Tablet 5 3 11/19/19 23 Discontinu ed(Refill) Atorvastatin Calcium 40 MG Oral Tablet (Lipitor)Indicatio ns:Hyperlipidemia with target LDL less than 100 TAKE 1 TABLET BY MOUTH DAILY 90 Tablet 1 3 11/19/19 23 Discontinu ed(Refill) traZODone HCl 50 MG Oral Tablet (Desyrel)Indicatio ns:Sleep disorder TAKE 1 TABLET BY MOUTH DAILY AT BEDTIME 90 Tablet 1 3 11/19/19 23 Discontinu ed(Refill) DULoxetine HCl 30 MG Oral Capsule Delayed Release Particles (Cymbalta) Take 1 capsules by mouth daily for 7 days, then increase to 2 capsules daily 60 Capsule 3 3 11/19/19 Discontinu ed(Medicat ion/Dose Changed) buPROPion HCl ER (XL) 150 MG Oral Tablet Extended Release 24 Hour (Wellbutrin XL) TAKE 1 TABLET BY MOUTH DAILY 90 Tablet 1 3 11/19/19 Discontinu ed(Refill) traMADol HCl 50 MG Oral Tablet (Ultram)Indication s:DDD (degenerative disc disease), lumbar,Chronic pain syndrome Take 1 Tablet by mouth 2 times a day as needed for Pain, Severe. 60 Tablet 2 3 11/19/19 23 Discontinu ed(Refill) Sulfamethoxazole-T rimethoprim 800-160 MG Oral Tablet (Bactrim DS) 1 tablet twice daily for 7 days with food 14 Tablet 0 3 11/19/19 Discontinu ed(End of Procedure) Hospital, Clinic, or Other Facility Administered Medication Ordered Dose Route Frequency Start Date End Date Status Albuterol Sulfate (Proventil) (2.5 MG/3ML) 0.083% inhalation solution 2.5 mgIndications:Screening for respiratory condition 2.5 mg NEBULIZER ONCE PRN 04/01/2022 Active documented as of this encounter (statuses as of 11/18/2022) Active Problems Problem Noted Date Colonic stricture [...] as of this encounter (statuses as of 11/18/2022) Resolved Problems Problem Noted Date Resolved Date [...] as of this encounter (statuses as of 11/18/2022) Immunizations Name Administration Dates Next Due COVID-19 mRNA, LNP-s, No Pre serve, 2-Dose Series (Pfizer) 05/15/2021,09/12/2020,08/22/2020 Hepatitis B, 20+ yrs 11/19/2021,05/20/20 21(Deferred: Contraindication),11/13/2020 12/13/2020 Pneumococcal Conjugate Vacc, 13 Valent (Prevnar) 04/20/2018 Pneumococcal Conjugate Vacci ne, 20-valent ([id number]) 01/27/2022 Seasonal Influenza Virus Vac cine, Unspecified [...] Reading Time Taken Comments Blood Pressure 138/82 11/18/2022 9:23 AM EDT Pulse 98 11/18/2022 9:23 AM EDT Temperature 36.5 C (97.7 F) 11/18/2022 9:23 AM ED T Respiratory Rate 16 11/18/2022 9:23 AM EDT Oxygen Saturation 97% 11/18/2022 9:23 AM EDT Inhaled Oxygen Concentration - - Weight 84.6 kg (186 lb 8 oz) 11/18/2022 9:23 AM EDT Height - - Body Mass Index 30.1 07/01/2022 10:19 AM EST documented in this encounter Patient Instructions * Patient Instructions* Rhonda Chow LPN - 11/18/2022 9:25 AM EDT Diabetes: Keeping Feet Healthy Inspect your feet every day for signs of a problem. Diabetes can damage nerves in your feet and cause neuropathy. This condition makes it hard for you to feel injuries or sore spots. Diabetes can also change blood flow, making it harder for small problems, like a blister, to heal properly. In fact, minor injuries can quickly become serious infections that send you to the hospital. Practice self-care to protect your feet and keep them healthy. Take Special Care Inspect your feet daily for problems such as redness, blisters, cracks, dry skin, or numbness. Use a mirror to see the bottoms of your feet. Or, ask for help. Manage your diabetes. Monitor and control your blood sugar. Take all your medications as prescribed. Avoid walking barefoot, even indoors. Wash your feet with warm water and mild soap. Dry well, especially between toes. Dont treat corns or calluses yourself. Talk to your doctor or freight checker (a doctor who specializes in foot care) if you need assistance trimming your toenails. Use moisturizing cream or lotion if you have dry skin, but dont use it between toes. Dont use heating pads on your feet. If you have neuropathy, you could get a burn and not feel it. Stop smoking. Smoking restricts blood flow and can make it harder for wounds to heal. Have Regular Checkups Foot problems can develop quickly. So be sure to follow your healthcare teams schedule for regular checkups. During office visits, take off your shoes and socks as soon as you get in the exam room. Ask your healthcare provider to examine your feet for problems. This will make it easier to find and treat small skin irritations before they get worse. Regular checkups can also help keep track of the blood flow and feeling in your feet. If you have neuropathy, you may need to have checkups more often. Wear Proper Footwear Wearing proper footwear is very important. If areas of your feet have been damaged by too much pressure, your healthcare provider may recommend changing your footwear. In some cases, avoiding high heels or tight work boots may be all thats needed. Or, your healthcare provider may recommend special shoes or custom inserts. These help protect your feet and keep existing irritations from getting worse. If you need special footwear, ask your healthcare provider if you qualify for [employer] diabetic shoe program. Make Sure Shoes and Socks Fit Any pair of shoes--new or old--should feel comfortable as soon as you put them on. There shouldnt be any rubbing when you walk. Wear the right shoe for any activity. For instance, a running shoe is designed to keep your feet injury-free while jogging. Buy shoes at the end of the day, when your feet are larger. Make sure they provide support without feeling too loose. Make sure your socks fit, t oo. Wear soft, seamless, well-padded socks for activity. Cotton or microfiber socks are best to help to absorb sweat. To protect your feet, avoid shoes that are open-toed or open-heeled. If you have questions about what kinds of shoes and socks are best, talk to your healthcare team. Get Regular Exercise Regular exercise improves blood flow in your feet. It also increases foot strength and flexibility.Gentle exercises, like walking or riding a stationary bicycle, are best. You can also do special foot exercises. Just be sure to talk with your healthcare provider before starting any exercise program. Also mention if any exercise causes pain, redness, or other signs of foot problems. Note: If you have any kind of break in the skin of your foot or ankle, keep the area clean. Then call your doctor--especially if the area doesnt appear to be healing. [id number] [employer], [address] [place] [address], [place] [address]. All rights reserved. This information is not intended as a substitute for professional medical care. Always follow your healthcare professional's instructions. documented in this encounter Progress Notes * Faina Samayoa MD - 11/18/2022 9:33 AM EDT Images from the original note were not included. Portions of this record may have been dictated using voice recognition software. Variations in spelling and in vocabulary are possible and unintentional. Some errors may not be recognized or corrected at time of dictation. History of Present Illness Krystin Jaffe is a 62 year old female that presents for Follow Up (3 MONTH RETURN) DDD lumbar spine, stable on current therapy now Gabapentin and tramadol. Patient scheduled for oralinitial consultation with pain management for injections which I do think will be quite helpful forher. She is exercising, swimming at least daily. Has found this to be also helpful with controlling her pain. Diabetes in hyperlipidemia both condition stable and controlled. Patient is diet controlled with regards to diabetes but she does monitor at least weekly. Physical Exam Vitals: 11/18/22 0923 Temp: 36.5 C (97.7 F) Pulse: 98 Resp: 16 SpO2: 97% BP: 138/82 Physical Exam Vitals and nursing note reviewed. Constitutional: General: She is not in acute distress. Appearance: Normal appearance. HENT: Head: Normocephalic and atraumatic. Eyes: Extraocular Movements: Extraocular movements intact. Cardiovascular: Rate and Rhythm: Normal rate and regular rhythm. Heart sounds: Normal heart sounds. Pulmonary: Effort: Pulmonary effort is normal. Breath sounds: Normal breath sounds. Neurological: Mental Status: She is alert. Assessment and Plan Type 2 diabetes mellitus with hemoglobin A1c goal of less than 7.0% ([facility]) Diet control, continue dietary restrictions and exercise. Hemoglobin AIC Results: Lab Results Component Value Date/Time HEMOGLOBIN A1C - [facility] 6.2 (H) 01/28/2022 10:20 AM HEMOGLOBIN A1C - [facility] 5.6 09/26/2021 09:39 AM HEMOGLOBIN A1C - [facility] 5.8 (H) 05/13/2021 08:44 AM HEMOGLOBIN A1C - [facility] 6.8 (H) 12/22/2019 07:57 AM HEMOGLOBIN A1C - [facility] 6.6 (H) 04/22/2019 08:05 AM - HEMOGLOBIN A1C, POINT OF CARE DM type 2 nursing care encounter (HCC) - DIABETES FOOT EXAM Hyperlipidemia with target LDL less than 100 Previously controlled will titrate if indicated - Atorvastatin Calcium 40 MG Oral Tablet (Lipitor); Take 1 Tablet by mouth in the morning. Sleep disorder - traZODone HCl 50 MG Oral Tablet (Desyrel); Take 1 Tablet by mouth every night at bedtime. DDD (degenerative disc disease), lumbar - traMADol HCl 50 MG Oral Tablet (Ultram); Take 1 Tablet by mouth 2 times a day as needed for Pain,Severe. Chronic pain syndrome Continue current management, recommend proceed with injections if insurance will cover. Provided medication refills today and recommend follow-up with new sees PCP in about 3 months. - traMADol HCl 50 MG Oral Tablet (Ultram); Take 1 Tablet by mouth 2 times a day as needed for Pain,Severe. Wrap-Up * Rhonda Chow LPN - 11/18/2022 9:25 AM EDT DM Foot Exam completed today. Provider aware. Rhonda Chow LPN Socks and Shoes Removed for Annual Diabetic Foot Screening RIGHT FOOT: No Reddened, Cracking, Or Open Areas Noted. RIGHT Dorsalis Pedis Pulse: Palpable RIGHT Posterior Tibial Pulse: Palpable RIGHT Monofilament:Patient reports feeling monofilament pressure on plantar surface of foot LEFT FOOT: No Reddened, Cracking or Open Areas Noted. LEFT Dorsalis Pedis Pulse: Palpable LEFT Posterior Tibial Pulse: Palpable LEFT Monofilament:Patient reports feeling monofilament pressure on plantar surface of foot Do you need diabetic shoes: No documented in this encounter Nursing Notes * Rhonda Chow LPN - 11/18/2022 9:18 AM EDT The patient has been properly identified by confirmation of name and date of . Chief Complaint Patient presents with Follow Up 3 MONTH RETURN Patient has no new concerns at this time. Missed her MTM appointment this morning. documented in this encounter Plan of Treatment Upcoming Encounters Date Type Specialty Care Team Description 12/03/2022 Office Visit Pain Medicine Juan M Borrero DO [address] [place] [phone] 03/20/2023 Office Visit [facility] [address] [facility] [phone] Scheduled Orders Name Type Priority Associated Diagnoses Orde r Schedule HEMOGLOBIN A1C Lab Routine Type 2 diabetes mellitus with hemoglobin A1c goal of less than 7.0% (HCC) Expected: 11/18/2022 (Approximate), Expires: 11/19/2023 COMPREHENSIVE METABOLIC PANEL Lab Routine Type 2 diabetes mellitus with hemoglobin A1c goal of less than 7.0% (HCC) Expected: 11/18/2022 (Approximate), Expires: 11/19/2023 LIPID PANEL WITH DIRECT LDL IF TG IS HIGH Lab Routine Hyperlipidemia with target LDL less than 100 Expected: 11/18/2022, Expires: 11/19/2023 Health Maintenance Due Date Last Done Comments [...] 07/29/2022 01/28/2022, 08/31, 05/13/2021, Additional history exists Depression Screening, Annual for Pts 12 and Over 11/19/2022 11/19/2021 Influenza Vaccine (FLU shot) (Season Ended) 2023 04/21/2020, 03/01/2020, 02/08/2019, Additional history exists DIABETES-EYE EXAM 07/18/2023 07/18/2022, 11/13/2020 Mammogram 07/29/2023 07/29/2022, 04/0 07/2020, 08/30/2020, Additional history exists GFR 09/30/2023 09/29/2022, 06/03, 01/28/2022, Additional history exists O2 ASSESSMENT COMPLETED IN PAST YEAR FOR COPD 10/23/2023 10/22/2022 DIABETES-FOOT EXAM 11/19/2023 11/18/2022, 0 11/19/2021, 09/13/2020 Pap Smear 12/18/2025 12/18/2020 Lipid Panel 01/28/2027 01/28/2022, 2 12/2021, 05/13/2021, [...] as of this encounter Visit Diagnoses Diagnosis Type 2 diabetes mellitus with hemoglobin A1c goal of less than 7.0% (HCC)- Primary DM type 2 nursing care encounter (HCC) Type II or unspecified type diabetes mellitus without mention of complication, not stated as uncontrolled Hyperlipidemia with target LDL less than 100 Other and unspecified hyperlipidemia Sleep disorder Sleep disturbance, unspecified DDD (degenerative disc disease), lumbar Degeneration of lumbar or lumbosacral intervertebral disc Chronic pain syndrome documented in this encounter Care Teams Flat Knitter Relationship Specialty Start Date End Date Faina Samayoa MD [address], [place] [phone] PCP - General Family Medicine 03/13/22 documented as of this encounter
--- OUTSIDE RECORDS SUMMARY | 2023-04-10 08:58 | External Medical Summary | Summary of Care ---
Author Name Unknown Organization [facility] Address [address] [place] [address] Phone [phone] Care Team Providers Care Avionics Engineer Name Role Phone Faina Samayoa MD Primary Care Prov ider Reason for Referral * Evaluate & Treat - Unlimited Visits (Within 10 days (routine)) - Authorized Specialty Diagnoses / Procedures Referred By Leif t Referred To Contact Pain Management / Pain Medicine Diagnoses DDD (degenerative disc disease), lumbar Chronic pain syndrome Faina Samayoa MD [address] [place] [phone] Referral ID Status Reason Start Date Expiration Date Visits Requested Visits Authorized [id number] Authorized Specialty Services Required 10/22/2022 999 999 Question Answer Referral Priority Within 10 days (routine) Reason for referral? Interventional Pain Management - (Injection) What is the preferred location to have this test performed? [facility] Reason for Visit * Reason Comments Acute Encounter Details Date Type Department Care Team Description 10/22/2022 Office Visit Family [address] [address] Faina Samayoa MD [address] [place] [phone] DDD (degenerative disc disease), lumbar*; Chronic pain syndrome; Wound of left lower extremity, initial encounter Allergies No known active allergiesdocumented as of this encounter (statuses as of 10/22/2022) Medications Medication Sig Dispensed Refills Start Date End Date Status Mercaptopurine 50 MG Oral Tablet (Purinethol) 0 1 Active Ipratropium-Albute rol 0.5-2.5 (3) MG/3ML Inhalation Solution (Duoneb) 0 1 Active Vitamin D3 1.25 MG (10251 UT) Oral Capsule Take 1 Capsule by mouth in the morning. 0 Active Womens Multi Oral Capsule Take 1 Tablet by mouth daily. 0 Active D-Care Glucometer w/Device Kit Use as directed . Use to test BS; e11.9, may substitute for insurance coverage 1 Kit 0 2 Active CRS ElectronicsTouch Delica Lancets 30G Use to test blood sugar twice daily; e11.9 200 Each 3 2 Active [employer] Verio In Vitro Strip (Glucose Blood) Use [...] OR WHEEZING 8.5 g 5 2 Active Pantoprazole Sodium 40 MG Oral Tablet Delayed Release (Protonix) Take 1 Tablet by mouth in the morning. 90 Tablet 1 3 Active Trelegy Ellipta 100-62.5-25 MCG/ACT Aerosol Powder Breath Activated (Fluticasone-Umecl idinium-Vilanterol ) Inhale 1 Puff by mouth in the morning. Rinse mouth after use. 60 Blister Dosing Unit 6 3 Active Gabapentin 800 MG Oral Tablet (Neurontin) Take 1 Tablet by mouth in the morning and 1 Tablet at noon and 1 Tablet before bedtime. 90 Tablet 5 3 Active Atorvastatin Calcium 40 MG Oral Tablet (Lipitor)Indicatio ns:Hyperlipidemia with target LDL less than 100 TAKE 1 TABLET BY MOUTH DAILY 90 Tablet 1 3 Active traZODone HCl 50 MG Oral Tablet (Desyrel)Indicatio ns:Sleep disorder TAKE 1 TABLET BY MOUTH DAILY AT BEDTIME 90 Tablet 1 3 Active DULoxetine HCl 30 MG Oral Capsule Delayed Release Particles (Cymbalta) Take 1 capsules by mouth daily for 7 days, then increase to 2 capsules daily 60 Capsule 3 3 Active buPROPion HCl ER (XL) 150 MG Oral Tablet Extended Release 24 Hour (Wellbutrin XL) TAKE 1 TABLET BY MOUTH DAILY 90 Tablet 1 3 Active Celecoxib 100 MG Oral Capsule (CeleBREX) Take 1 Capsule by mouth in the morning. for pain. 90 Capsule 1 3 Active traMADol HCl 50 MG Oral Tablet (Ultram)Indication s:DDD (degenerative disc disease), lumbar,Chronic pain syndrome Take 1 Tablet by mouth 2 times a day as needed for Pain, Severe. 60 Tablet 2 3 Active Sulfamethoxazole-T rimethoprim 800-160 MG Oral Tablet (Bactrim DS) 1 tablet twice daily for 7 days with food 14 Tablet 0 3 Active Meloxicam 7.5 MG Oral Tablet (Mobic) 0 3 10/23/19 23 Discontinu ed(End of Procedure) Hospital, Clinic, or Other Facility Administered Medication Ordered Dose Route Frequency Start Date End Date Status Albuterol Sulfate (Proventil) (2.5 MG/3ML) 0.083% inhalation solution 2.5 mgIndications:Screening for respiratory condition 2.5 mg NEBULIZER ONCE PRN 04/01/2022 Active documented as of this encounter (statuses as of 10/22/2022) Active Problems Problem Noted Date COPD, group [...] as of this encounter (statuses as of 10/22/2022) Resolved Problems Problem Noted Date Resolved Date [...] as of this encounter (statuses as of 10/22/2022) Immunizations Name Administration Dates Next Due COVID-19 mRNA, LNP-s, No Pre serve, 2-Dose Series (Pfizer) 05/15/2021,09/12/2020,08/22/2020 Hepatitis B, 20+ yrs 11/19/2021,05/20/20 21(Deferred: Contraindication),11/13/2020 12/13/2020 Pneumococcal Conjugate Vacc, 13 Valent (Prevnar) 04/20/2018 Pneumococcal Conjugate Vacci ne, 20-valent ([email or web address]) 01/27/2022 Seasonal Influenza Virus Vac cine, Unspecified [...] Sign Reading Time Taken Comments Blood Pressure 128/82 10/22/2022 3:47 PM EDT Pulse 104 10/22/2022 3:47 PM EDT Temperature 37.2 C (99 F) 10/22/2022 3:47 PM EDT Respiratory Rate 18 10/22/2022 3:47 PM EDT Oxygen Saturation 94% 10/22/2022 3:47 PM EDT Inhaled Oxygen Concentration - - Weight 83.8 kg (184 lb 12.8 oz) 10/22/2022 3:47 PM EDT Height - - Body Mass Index 29.83 07/01/2022 10:19 AM EST documented in this encounter Progress Notes * Faina Samayoa MD - 10/22/2022 4:18 PM EDT Images from the original note were not included. Portions of this record may have been dictated using voice recognition software. Variations in spelling and in vocabulary are possible and unintentional. Some errors may not be recognized or corrected at time of dictation. History of Present Illness Krystin Jaffe is a 62 year old female that presents for Acute History of degenerative disc disease, lumbar spine. Having some benefit with gabapentin but pain remains uncontrolled. At 1 point was on oxycodone but this was stopped recently due to confusion regarding a drug screen, patient has been trying to manage her pain with anti-inflammatories and Tylenol and has not had significant improvement she was recently seen at [facility] pain management where CT/ MRI was done and injections were recommended however she can not get injections until December or January. She would like to consider injections with [facility] instead. Hit left leg on saw mill. Has injury for 2 weeks, red still painful. Has been providing wound care at home but remains with redness and pain Physical Exam Vitals: 10/22/22 1547 Temp: 37.2 C (99 F) Pulse: 104 Resp: 18 SpO2: 94% BP: 128/82 Physical Exam Vitals and nursing note reviewed. Constitutional: General: She is not in acute distress. Appearance: Normal appearance. HENT: Head: Normocephalic and atraumatic. Eyes: Extraocular Movements: Extraocular movements intact. Cardiovascular: Rate and Rhythm: Normal rate and regular rhythm. Heart sounds: Normal heart sounds. Pulmonary: Effort: Pulmonary effort is normal. Breath sounds: Normal breath sounds. Skin: Comments: Left lateral lower extremity with 2 x 2 cm area of erythema and a central scab lesion Neurological: Mental Status: She is alert. Assessment and Plan DDD (degenerative disc disease), lumbar I do think that injections will be quite helpful, referral To pain management. I do not think that she Needs to continue to see MTM, going forward I do not think she needs to be back on oxycodone however she may get some benefit and improvement with activities of daily living with intermittent use of tramadol. Will also add Celebrex to see if she gets improvement of her inflammatory hip pain relative to her back pain. - traMADol HCl 50 MG Oral Tablet (Ultram); Take 1 Tablet by mouth 2 times a day as needed for Pain,Severe. - PAIN MEDICINE REFERRAL OP Chronic pain syndrome - traMADol HCl 50 MG Oral Tablet (Ultram); Take 1 Tablet by mouth 2 times a day as needed for Pain,Severe. - PAIN MEDICINE REFERRAL OP Wound of left lower extremity, initial encounter suspect developing cellulitis recommend antibiotics, Tdap updated today. - TDAP (AGE 10 AND OLDER)(BOOSTRIX); Future Wrap-Up Follow Up: Return for As scheduled. | For: As scheduled documented in this encounter Nursing Notes * Denae Warner CMA - 10/22/2022 3:38 PM EDT The patient has been properly identified by confirmation of name and date of . Chief Complaint Patient presents with Acute Pt here for back. Is seeing provider at [facility] and had MRI done, was told she needed injection but that can't be done until December. Pt asking if there is someone else she can go to. Pt has spot on left calf that she hit and now looks infected, happened about 2-3 weeks ago. Did have some pus the last couple days coming from opening. Spot on back of heel keeps getting bigger, xray was done and is in pt's chart. Pt has lump on right wrist for about 3 weeks and is now having bruises appear on that same arm. documented in this encounter Plan of Treatment Upcoming Encounters Date Type Specialty Care Team Description 11/18/2022 Office Visit Pharmacy Pharmacist2, [facility] [address] [place] [address] 11/18/2022 Office Visit Family Medicine Faina Samayoa MD [address] [place] [address] Scheduled Referrals Name Type Priority Associated Diagnoses Orde r Schedule PAIN MEDICINE REFERRAL OP Referral Within 10 days (routine) DDD (degenerative disc disease), lumbar Chronic pain syndrome Ordered: 10/22/2022 Health Maintenance Due Date Last Done Comments [...] 07/29/2022, 04/0 07/2020, 08/30/2020, Additional history exists O2 ASSESSMENT COMPLETED IN PAST YEAR FOR COPD 08/16/2023 08/15/2022 GFR 09/30/2023 09/29/2022, 06/03, 01/28/2022, Additional history exists Pap Smear 12/18/2025 12/18/2020 Lipid Panel 01/28/2027 [...] or lumbosacral intervertebral disc Chronic pain syndrome Wound of left lower extremity, initial encounter documented in this encounter Care Teams Avionics Engineer Relationship Specialty Start Date End Date Faina Samayoa MD [address] [place] [phone] PCP - General Family Medicine 03/13/22 documented as of this encounter"
--- OUTSIDE RECORDS SUMMARY | 2023-04-10 08:58 | External Medical Summary | Summary of Care ---
Author Name Unknown Organization [facility] Address [address] [place] [address] Phone [phone] Care Team Providers Care Sewer And Inspector Name Role Phone Faina Samayoa MD Primary Care Prov ider Encounter Details Date Type Department Care Team Description 09/29/2022 Result Scan Unspecified Department <No scans attached> Allergies No known active allergiesdocumented as of this encounter (statuses as of 10/10/2022) Medications Medication Sig Dispensed Refills Start Date End Date Status Mercaptopurine 50 MG Oral Tablet (Purinethol) 0 10/02/2020 Active Ipratropium-Albuter ol 0.5-2.5 (3) MG/3ML Inhalation Solution (Duoneb) 0 09/12/2020 Active Vitamin D3 1.25 MG (17879 UT) Oral Capsule Take 1 Capsule by mouth in the morning. 0 Active Womens Multi Oral Capsule Take 1 Tablet by mouth daily. 0 Active buPROPion HCl ER (XL) 150 MG Oral Tablet Extended Release 24 Hour (Wellbutrin XL) TAKE 1 TABLET BY MOUTH ONCE DAILY 90 Tablet 3 10/11/2021 Active D-Care Glucometer w/Device Kit Use as [...] AT BEDTIME 90 Tablet 1 09/30/2022 Active Hospital, Clinic, or Other Facility Administered Medication Ordered Dose Route Frequency Start Date End Date Status Albuterol Sulfate (Proventil) (2.5 MG/3ML) 0.083% inhalation solution 2.5 mgIndications:Screening for respiratory condition 2.5 mg NEBULIZER ONCE PRN 04/01/2022 Active documented as of this encounter (statuses as of 10/10/2022) Active Problems Problem Noted Date COPD, group [...] as of this encounter (statuses as of 10/10/2022) Resolved Problems Problem Noted Date Resolved Date [...] as of this encounter (statuses as of 10/10/2022) Immunizations Name Administration Dates Next Due COVID-19 mRNA, LNP-s, No Pre serve, 2-Dose Series (Pfizer) 05/15/2021,09/12/2020,08/22/2020 Hepatitis B, 20+ yrs 11/19/2021,05/20/20 21(Deferred: Contraindication),11/13/2020 12/13/2020 Pneumococcal Conjugate Vacc, 13 Valent (Prevnar) 04/20/2018 Pneumococcal Conjugate Vacci ne, 20-valent ([id number]) 01/27/2022 Seasonal Influenza Virus Vac cine, Unspecified [...] Team Description 11/18/2022 Office Visit Pharmacy Pharmacist2, [facility] [address] [place] [address] 11/18/2022 Office Visit Family Medicine Faina Samayoa MD [address] [place] [address] Health Maintenance Due Date Last Done Comments DTaP,Tdap,and Td Vaccines (1 - Tdap) 1981 Cologuard 2007 Fecal Occult Blood Test 2007 Sigmoidoscopy 2007 *COPD SEVERITY VERIFIED BY PFT 09/05/2020 COVID-19 Vaccine (4 - Booster for Pfizer series) 07/10/2021 05/15/2021, 09/12/2020, 08/22/2020 Albumin/Creatinine Ratio 08/23/2021 08/23/2020 Hepatitis B (3 of 3 - 19+ 3-dose series) 04/21/2022 11/19/2021, 11/13/2020 HgA1C 07/29/2022 01/28/2022, 08/31, 05/13/2021, Additional history exists DIABETES-FOOT EXAM 11/19/2022 11/19/2021, 09/13/2020 Depression Screening, Annual for Pts 12 and Over 11/19/2022 11/19/2021 Influenza Vaccine (FLU shot) (Season Ended) 2023 04/21/2020, 03/01/2020, 02/08/2019, Additional history exists DIABETES-EYE EXAM 07/18/2023 07/18/2022, 11/13/2020 Mammogram 07/29/2023 07/29/2022, 04/0 07/2020, 08/30/2020, Additional history exists O2 ASSESSMENT COMPLETED IN PAST YEAR FOR COPD 08/16/2023 08/15/2022 GFR - Renal Function 09/30/2023 09/29/2022, 07/01/2022, 01/28/2022, Additional history exists Pap Smear 12/18/2025 [...] Procedure Name Priority Date/Time Associated Diagnosis Comments OUTSIDE LAB RESULTS 09/29/2022 documented in this encounter Results * OUTSIDE LAB RESULTS (09/29/2022) 09/29/2022 No Physician Data Unknown LABORATORY documented in this encounter Care Teams Sewer And Inspector Relationship Specialty Start Date End Date Faina Samayoa MD [address] [place] [address] PCP - General Family Medicine 03/13/22 documented as of this encounter
--- OUTSIDE RECORDS SUMMARY | 2023-04-10 08:58 | External Medical Summary | Summary of Care ---
Author Name Unknown Organization [facility] Address [address] [place] [address] Phone [phone] Care Team Providers Care Irrigation Equipment Installer Name Role Phone Faina Samayoa MD Primary Care Prov ider Reason for Visit * Reason Onset Date Comments Health Maintenance 10/17/2022 Encounter Details Date Type Department Care Team Description 10/17/[address] [address] Faina Samayoa MD [address] [place] [phone] Health Maintenance Allergies No known active allergiesdocumented as of this encounter (statuses as of 10/17/2022) Medications Medication Sig Dispensed Refills Start Date End Date Status Mercaptopurine 50 MG Oral Tablet (Purinethol) 0 10/02/2020 Active Ipratropium-Albuter ol 0.5-2.5 (3) MG/3ML Inhalation Solution (Duoneb) 0 09/12/2020 Active Vitamin D3 1.25 MG (02071 UT) Oral Capsule Take 1 Capsule by [...] MOUTH DAILY 90 Tablet 1 10/12/2022 Active Hospital, Clinic, or Other Facility Administered Medication Ordered Dose Route Frequency Start Date End Date Status Albuterol Sulfate (Proventil) (2.5 MG/3ML) 0.083% inhalation solution 2.5 mgIndications:Screening for respiratory condition 2.5 mg NEBULIZER ONCE PRN 04/01/2022 Active documented as of this encounter (statuses as of 10/17/2022) Active Problems Problem Noted Date COPD, group [...] as of this encounter (statuses as of 10/17/2022) Resolved Problems Problem Noted Date Resolved Date [...] as of this encounter (statuses as of 10/17/2022) Immunizations Name Administration Dates Next Due COVID-19 mRNA, LNP-s, No Pre serve, 2-Dose Series (Boutir) 05/15/2021,09/12/2020,08/22/2020 Hepatitis B, 20+ yrs 11/19/2021,05/20/20 21(Deferred: Contraindication),11/13/2020 12/13/2020 Pneumococcal Conjugate Vacc, 13 Valent (Prevnar) 04/20/2018 Pneumococcal Conjugate Vacci ne, 20-valent ([id number]) 01/27/2022 Seasonal Influenza Virus Vac cine, Unspecified [...] encounter Miscellaneous Notes * Telephone Encounter - Akua Lawrence LPN - 10/17/2022 9:21 AM EDT Care Gaps Comprehensive Care Outreach Last Office/Telemedicine Visit: 08/15/2022 (in office), Visit date not found (telemedicine) Next Office Visit: 10/22/2022 Hemoglobin AIC Results: Lab Results Component Value Date/Time HEMOGLOBIN A1C - [facility] 6.2 (H) 01/28/2022 10:20 AM HEMOGLOBIN A1C - [facility] 5.6 09/26/2021 09:39 AM HEMOGLOBIN A1C - [facility] 5.8 (H) 05/13/2021 08:44 AM HEMOGLOBIN A1C - [facility] 6.8 (H) 12/22/2019 07:57 AM HEMOGLOBIN A1C - [facility] 6.6 (H) 04/22/2019 08:05 AM Reviewed Health Maintenance below: Health Maintenance Topic Date Due DTaP,Tdap,and Td Vaccines (1 - Tdap) Never done *COPD SEVERITY VERIFIED BY PFT Never done COVID-19 Vaccine (4 - Booster for Pfizer series) 07/10/2021 Albumin/Creatinine Ratio 08/23/2021 Hepatitis B (3 of 3 - 19+ 3-dose series) 04/21/2022 HgA1C 07/29/2022 Care Gap Outreach Action Taken: Left message documented in this encounter Plan of Treatment Upcoming Encounters Date Type Specialty Care Team Description 10/22/2022 Office Visit Family Medicine Faina Samayoa MD [address] [place] [address] 11/18/2022 Office Visit Pharmacy Pharmacist2, [facility] [address] [place] [address] 11/18/2022 Office Visit Family Medicine Faina Samayoa MD [address] [place], [place] [phone] Health Maintenance Due Date Last Done Comments DTaP,Tdap,and Td Vaccines (1 - Tdap) 1981 Cologuard 2007 Fecal Occult Blood Test 2007 Sigmoidoscopy 2007 *COPD SEVERITY VERIFIED BY PFT 09/05/2020 COVID-19 Vaccine (4 - Booster for Pfizer series) 07/10/2021 05/15/2021, 09/12/2020, 08/22/2020 Albumin/Creatinine Ratio 08/23/2021 08/23/2020 Hepatitis B (3 of 3 - 19+ 3-dose series) 04/21/2022 11/19/2021, 11/13/2020 HgA1C 07/29/2022 01/28/2022, 2 12/2021, 05/13/2021, Additional history exists DIABETES-FOOT EXAM 11/19/2022 [...] Smear 12/18/2025 12/18/2020 Lipid Panel 01/28/2027 01/28/2022, /2 12/2021, 05/13/2021, Additional history exists Colonoscopy 07/10/2032 [...] filedocumented as of this encounter Care Teams Irrigation Equipment Installer Relationship Specialty Start Date End Date Faina Samayoa MD [address] [place] [phone] PCP - General Family Medicine 03/13/22 documented as of this encounter
--- OUTSIDE RECORDS SUMMARY | 2023-04-10 08:58 | External Medical Summary | Summary of Care ---
Author Name Unknown Organization [facility] Address [address] [place] [facility] [place] [place] [address] Phone [phone] Care Team Providers Care Paint Roller Cover Machine Setter Name Role Phone Astrid Samayoa MD Primary Care Prov ider Reason for Visit * Reason Comments eRx-Medication Refill Encounter Details Date Type Department Care Team Description 10/11/2022 Refill [facility] [address] [place] [address] Chel Ozuna PA-C [address] [place] [address] Allergies No known active allergiesdocumented as of this encounter (statuses as of 10/12/2022) Medications Medication Sig Dispensed Refills Start Date End Date Status Mercaptopurine 50 MG Oral Tablet (Purinethol) 0 1 Active Ipratropium-Albut katt 0.5-2.5 (3) MG/3ML Inhalation Solution (Duoneb) 0 1 Active Vitamin D3 1.25 MG (40815 UT) Oral Capsule Take 1 Capsule by [...] a with target LDL less than 100 TAKE 1 TABLET BY MOUTH DAILY 90 Tablet 1 3 Active traZODone HCl 50 MG Oral Tablet (Desyrel)Indicati ons:Sleep disorder TAKE 1 TABLET BY MOUTH DAILY [...] MOUTH DAILY 90 Tablet 1 3 Active buPROPion HCl ER (XL) 150 MG Oral Tablet Extended Release 24 Hour (Wellbutrin XL) TAKE 1 TABLET BY MOUTH ONCE DAILY 90 Tablet 3 2 10/13/19 23 Discontinued Hospital, Clinic, or Other Facility Administered Medication Ordered Dose Route Frequency Start Date End Date Status Albuterol Sulfate (Proventil) (2.5 MG/3ML) 0.083% inhalation solution 2.5 mgIndications:Screening for respiratory condition 2.5 mg NEBULIZER ONCE PRN 04/01/2022 Active documented as of this encounter (statuses as of 10/12/2022) Active Problems Problem Noted Date COPD, group [...] as of this encounter (statuses as of 10/12/2022) Resolved Problems Problem Noted Date Resolved Date [...] as of this encounter (statuses as of 10/12/2022) Immunizations Name Administration Dates Next Due COVID-19 mRNA, LNP-s, No Pre serve, 2-Dose Series ([employer]) 05/15/2021,09/12/2020,08/22/2020 Hepatitis B, 20+ yrs 11/19/2021,05/20/20 21(Deferred: Contraindication),11/13/2020 12/13/2020 Pneumococcal Conjugate Vacc, 13 Valent (Prevnar) 04/20/2018 Pneumococcal Conjugate Vacci ne, 20-valent ([id number]) 01/27/2022 Seasonal Influenza Virus Vac cine, Unspecified [...] encounter Miscellaneous Notes * Telephone Encounter - Aaron Monae lesli - 10/12/2022 7:36 AM EDT Signed Prescriptions: Disp Refills buPROPion HCl ER (XL) 150 MG Oral Tablet E*90 Tab*1 Sig: TAKE 1 TABLET BY MOUTH DAILYAuthorizing Provider: ASTRID SAMAYOA User: AARON MONAE documented in this encounter Plan of Treatment Upcoming Encounters Date Type Specialty Care Team Description 11/18/2022 Office Visit Pharmacy Pharmacist2, [address] [address] 11/18/2022 Office Visit Family Medicine Astrid Samayoa MD [address] [place] [address] Health Maintenance Due Date Last Done Comments DTaP,Tdap,and Td Vaccines (1 - Tdap) 1981 Cologuard 2007 Fecal Occult Blood Test 2007 Sigmoidoscopy 2007 *COPD SEVERITY VERIFIED BY PFT 09/05/2020 COVID-19 Vaccine (4 - Booster for Pfizer series) 07/10/2021 05/15/2021, 09/12/2020, 08/22/2020 Albumin/Creatinine Ratio 08/23/2021 08/23/2020 Hepatitis B (3 of 3 - 19+ 3-dose series) 04/21/2022 11/19/2021, 11/13/2020 HgA1C 07/29/2022 01/28/2022, /2 12/2021, 05/13/2021, Additional history exists DIABETES-FOOT EXAM [...] filedocumented as of this encounter Care Teams Paint Roller Cover Machine Setter Relationship Specialty Start Date End Date Astrid Samayoa MD [address] [place] [phone] PCP - General Family Medicine 03/13/22 documented as of this encounter
--- OUTSIDE RECORDS SUMMARY | 2023-04-10 08:58 | External Medical Summary | Summary of Care ---
Author Name Unknown Organization [facility] Address [address] [place] [address] Phone [phone] Care Team Providers Care Explosive Operator Supervisor Name Role Phone Faina Samayoa MD Primary Care Prov ider Encounter Details Date Type Department Care Team Description 09/19/2022 Result Scan Unspecified Department <No scans attached> Allergies No known active allergiesdocumented as of this encounter (statuses as of 10/29/2022) Medications Medication Sig Dispensed Refills Start Date End Date Status Mercaptopurine 50 MG Oral Tablet (Purinethol) 0 10/02/2020 Active Ipratropium-Albuter ol 0.5-2.5 (3) MG/3ML Inhalation Solution (Duoneb) 0 09/12/2020 Active Vitamin D3 1.25 MG (90725 UT) Oral Capsule Take 1 Capsule by [...] before bedtime. 90 Tablet 5 08/15/2022 Active Hospital, Clinic, or Other Facility Administered Medication Ordered Dose Route Frequency Start Date End Date Status Albuterol Sulfate (Proventil) (2.5 MG/3ML) 0.083% inhalation solution 2.5 mgIndications:Screening for respiratory condition 2.5 mg NEBULIZER ONCE PRN 04/01/2022 Active documented as of this encounter (statuses as of 10/29/2022) Active Problems Problem Noted Date COPD, group [...] as of this encounter (statuses as of 10/29/2022) Resolved Problems Problem Noted Date Resolved Date [...] as of this encounter (statuses as of 10/29/2022) Immunizations Name Administration Dates Next Due COVID-19 mRNA, LNP-s, No Pre serve, 2-Dose Series ([employer]) 05/15/2021,09/12/2020,08/22/2020 Hepatitis B, 20+ yrs 11/19/2021,05/20/20 21(Deferred: Contraindication),11/13/2020 12/13/2020 Pneumococcal Conjugate Vacc, 13 Valent (Prevnar) 04/20/2018 Pneumococcal Conjugate Vacci ne, 20-valent ([id number]) 01/27/2022 Seasonal Influenza Virus Vac cine, Unspecified [...] Team Description 11/18/2022 Office Visit Pharmacy Pharmacist2, [facility] [address] [place] [address] 11/18/2022 Office Visit Family Medicine Faina Samayoa MD [address] [place] [address] 12/03/2022 Office Visit Pain Medicine Juan M Borerro, [address] [place] [id number] Health Maintenance Due Date Last Done Comments [...] Name Priority Date/Time Associated Diagnosis Comments RADIOLOGY SCANNED RESULT 09/19/2022 documented in this encounter Results * RADIOLOGY SCANNED RESULT (09/19/2022) 09/19/2022 No Physician Data Unknown DIAGNOSTIC RAD IOLOGY SERVICES documented in this encounter Care Teams Explosive Operator Supervisor Relationship Specialty Start Date End Date Faina Samayoa MD [address] [place] [id number] PCP - General Family Medicine 03/13/22 documented as of this encounter
== END 2023-04-09 15:25 | disposition home or self-care (01) | DRG 189 ==
LOC: ED 07:10 → SUATTDRO 10:53 → EDINP 10:53 → 2S 15:00

== ENCOUNTER 2023-06-17 09:22 | Inpatient (IN) ==
[2023-06-17] MEDS ORDERED: ALBUT/IPRATROP 3MG/0.5MG NEB 3 ML VIAL INH STA (09:28)
[2023-06-17] MEDS ORDERED: methylPREDNISolone 125 MG/2 ML VIAL IV STA (09:28)
--- NOTE | 2023-06-17 09:31 | Emergency Department Note ---
Impression & Plan Influenza A ADMIT ED Provider Note HPI: History obtained from patient. The patient is a 63-year-old female with history of COPD, on home oxygen, presents to the emergency department with a chief complaint of shortness of breath, cough, and intermittent chest discomfort since yesterday. Patient states that she has had a harsh cough, she states that she does not currently have chest pain but she did have episodes of chest pain last night. Patient states that she received 2 DuoNeb breathing treatments en route via EMS and this did result in improvement with her dyspnea. On arrival here to the ED the patient is hemodynamically stable, she is saturating well on her baseline 2 L nasal cannula oxygen on arrival. ROS: - Per HPI Differential Diagnosis: Acute coronary syndrome, pulmonary embolism, acute bronchitis, COPD exacerbation, viral upper respiratory infection, amongst other potential pathologies. *Outpatient medications and allergy history reviewed. PE: General: Alert, obese HEENT: Normocephalic, trachea midline Eyes: Extraocular eye movement is intact, no scleral erythema Pulmonary: Coarse bilateral breath sounds with mild expiratory wheezing Cardio: Regular rate and rhythm GI: Abdomen is soft to palpation : No suprapubic tenderness MSK: No evidence of trauma or malformation of the extremities, no edema Skin: No evidence of rash Neuro: Alert, no focal deficits Psychiatric: Cooperative INDEPENDENT INTERPRETATIONS: monitoring specialist: (As interpreted by myself): - An order was placed for continuous cardiac monitoring - Patient was noted to be in sinus rhythm with a rate of 105 EKG: (As interpreted by myself): Rate: 124 Rhythm: Sinus rhythm Intervals: Within normal limits ST changes: No ST elevation Time: 0941 Chest x-ray: (As interpreted by myself): No acute disease Interventions provided in ED: -DuoNeb breathing treatment, IV Solu-Medrol, IV Zofran, Tamiflu Medical Decision Making: Chart left the patient arrived IV was established lab work obtained, patient was placed on monitor technician. Lab work shows a leukocytosis of 15.29, hemoglobin is normal, platelet count is normal, D-dimer is elevated at 1100, venous blood gas shows a near normal pH at 7.35 without any evidence of pCO2 elevation. CMP shows hypokalemia 3.3, troponin is elevated at 18.3, BNP mildly elevated at 133. Chest x-ray does not show any evidence of acute infiltrate per my interpretation. Urinalysis does not show any convincing evidence of infection, viral panel testing is positive for influenza A. EKG per my interpretation shows sinus rhythm without any acute ischemic changes. Given the patient's elevation in D-dimer, CT angiography of the chest was obtained and there is no evidence of pulmonary embolism. There is some mucous plugging and inflammatory changes noted. Patient states she does feel improved following DuoNeb breathing treatment and IV Solu-Medrol however continues to have nausea and some dyspnea and she does not feel comfortable going home. She has been stable here on her 2 L nasal cannula oxygen. Given chest pain, dyspnea, influenza A infection, and nausea, I did discuss the case with the on- call midlevel provider for [facility] Luana Lorenzo PA-C and the patient was accepted to the service of Dr. Brooks. Consultants/Discussions held with other healthcare providers: -Hospitalist service, Luana Lorenzo PA-C Disposition discussion held by myself with: -Patient and at bedside Diagnosis: 1. Influenza A infection, acute 2. Dyspnea, acute 3. Chest pain, acute, nonspecific 4. Elevated high-sensitivity troponin level Disposition: Admission Андрей Gold DO Emergency Medicine Past Med/Surg History Medical History Elevated IgE level Acute asthma exacerbation Leiomyoma of uterus History of COVID-19 diagnosed 03/17/21 @ [facility]--had difficulty breathing d/t COPD and had to hospitalized with oxygen for 1 week, pt states no lingering symptoms Crohns disease GERD (gastroesophageal reflux disease) DM type 2 (diabetes mellitus, type 2) NIDDM- DIET CONTROLLED Depression Anxiety History of migraine LALO (obstructive sleep apnea) CPAP DVT prophylaxis Asthma COPD (chronic obstructive pulmonary disease) well controlled w/ inhaler daily/prn, has not needed neb in "a while" Chronic low back pain Hyperlipidemia Hypertension Surgical History History of appendectomy S/P colon resection (07/04/21) Laparoscopic Assisted Right Colon Resection - Gildardo Woods MD, FACS 07/04/2021 History of esophagogastroduodenoscopy (EGD) History of tooth extraction History of tubal ligation History of D&C History of appendectomy History of lumbar surgery x 5; hardware present History of colonoscopy last 02/21/21 @ [facility] History of carpal tunnel surgery BL Family History Brother Diabetes Father , in early 60s from AMI Diabetes Myocardial infarction Mother , in her 60s; "natural" causes No problems noted. Other No family history of adverse response to anesthesia Denies family history of Inflammatory bowel disease Social History (Updated 06/15/23 @ 08:36 by Brianna Ronquillo RN) Smoking Status: Former smoker Tobacco Type: Cigarettes packs per day: 2.5; Second Hand Exposure: No; Do You Dip or Chew Tobacco: No; Hx Alcohol Use: No Hx Substance Use: No Preferred Language: Macanese Communication Ability: Effective Visual Impairment: Limited Hearing Ability: Normal Physical Education Professor Required: No Beliefs That Will Affect Care: None marital status: Current Living Situation: Spouse Current Living Situation Comment: Lives with and grandson current occupational status: retired current occupation: worked at [employer] How many Children do You have: 1 other: lives in [place] Feels Safe at Home: Yes Diet: diabetic Seatbelt Use: always Do you think of yourself as: straight/heterosexual Gender Identity: Female Assistive Devices: CPAP, Glasses, Nebulizer and Oxygen - Continuous Allergies Allergies Allergy/AdvReac Type Severity Reaction Status Date / Time adhesive tape AdvReac Severe TEARS SKIN Verified 06/15/23 08:30 Home Meds Home Medications Medication Instructions Recorded Confirmed cholecalciferol (vitamin D3) 25 1,000 unit PO QAM 08/25/18 06/17/23 mcg (1,000 unit) capsule (Vitamin D3) bupropion HCl 150 mg 24 hr tablet, 150 mg PO QAM 08/08/20 06/17/23 extended release multivit-iron 18 mg-folic acid 400 1 tab PO QAM 08/08/20 06/17/23 mcg-calcium 500 mg-minerals tablet (Women's One Daily) atorvastatin 40 mg tablet 40 mg PO HS 03/17/21 06/17/23 trazodone 50 mg tablet 50 mg PO HS 03/17/21 06/17/23 celecoxib 100 mg capsule 100 mg PO DAILY 04/04/23 06/17/23 duloxetine 60 mg capsule,delayed 60 mg PO QAM 04/04/23 06/17/23 release gabapentin 800 mg tablet 800 mg PO TID 04/04/23 06/17/23 tramadol 50 mg tablet 50 mg PO BID PRN Pain 04/04/23 06/17/23 lisinopril 2.5 mg tablet 2.5 mg PO DAILY 06/17/23 06/17/23 Previous Rx's Medication Instructions Recorded pantoprazole 40 mg tablet,delayed 40 mg PO QAM gastritis #90 tabs 06/24/21 release (Protonix) infliximab 100 mg intravenous See Rx Instructions IV Q8WK #8 ea 02/04/23 solution (Remicade) Portable Oxygen #1 ea 05/06/23 albuterol sulfate 90 mcg/actuation 2 puff inhalation Q4H PRN 05/06/23 aerosol inhaler Shortness Of Breath Or Wheezing #8.5 grams fluticasone fur. 200 mcg-umeclid 1 ea inhalation QAM #60 ea 05/06/23 62.5 mcg-vilant 25 mcg inhalat.powder (Trelegy Ellipta) ipratropium 0.5 mg-albuterol 3 mg 3 ml inhalation QID #180 mL 05/06/23 (2.5 mg base)/3 mL nebulization soln tezepelumab-ekko 210 mg/1.91 mL 210 mg (1.91 mL) subcut Q4WK #1.91 05/14/23 (110 mg/mL) subcutaneous pen mL injector (Tezspire) Results & Data (ED) Vital Signs Vital Signs - 24 hr 06/17/23 09:41 06/17/23 09:41 06/17/23 09:42 Temperature 36.8 C Temperature Source Oral Pulse Rate 125 H 125 H 126 H Pulse Rate [Right Finger] Pulse Rhythm Regular Regular Pulse Rhythm [Right Finger] Pulse Strength Normal Pulse Strength [Right Finger] Respiratory Rate 22 22 Respiratory Effort / Characteristics Non-Labored Spontaneous Respiratory Depth Normal Respiratory Pattern Regular Blood Pressure 127/92 Blood Pressure [Right Arm] Blood Pressure Mean 103 Blood Pressure Mean [Right Arm] Blood Pressure Position Semi-fowlers Blood Pressure Position [Right Arm] Pulse Oximetry 98 98 Oxygen Delivery Method Nasal Cannula Nasal Cannula Oxygen Flow Rate 2 2 Sepsis Recent Fever Within 48 Hours No Sepsis New/Unexplained Change in Mental Status No Sepsis Action Taken by Nursing Physician Notified 06/17/23 11:35 06/17/23 11:35 06/17/23 11:35 Temperature 36.9 C Temperature Source Oral Pulse Rate Pulse Rate [Right Finger] 106 H Pulse Rhythm Pulse Rhythm [Right Finger] Regular Pulse Strength Pulse Strength [Right Finger] Normal Respiratory Rate 22 Respiratory Effort / Characteristics Non-Labored Spontaneous Non-Labored Spontaneous Respiratory Depth Shallow Normal Respiratory Pattern Tachypnea Regular Blood Pressure Blood Pressure [Right Arm] 127/88 Blood Pressure Mean Blood Pressure Mean [Right Arm] 101 Blood Pressure Position Blood Pressure Position [Right Arm] Semi-fowlers Pulse Oximetry 93 99 Oxygen Delivery Method Nasal Cannula Nasal Cannula Nasal Cannula Oxygen Flow Rate 2 2 2 Sepsis Recent Fever Within 48 Hours Sepsis New/Unexplained Change in Mental Status Sepsis Action Taken by Nursing 06/17/23 13:00 Temperature 36.9 C Temperature Source Oral Pulse Rate Pulse Rate [Right Finger] 105 H Pulse Rhythm Pulse Rhythm [Right Finger] Regular Pulse Strength Pulse Strength [Right Finger] Normal Respiratory Rate 22 Respiratory Effort / Characteristics Non-Labored Spontaneous Respiratory Depth Normal Respiratory Pattern Regular Blood Pressure Blood Pressure [Right Arm] 129/88 Blood Pressure Mean Blood Pressure Mean [Right Arm] 101 Blood Pressure Position Blood Pressure Position [Right Arm] Semi-fowlers Pulse Oximetry 99 Oxygen Delivery Method Nasal Cannula Oxygen Flow Rate 2 Sepsis Recent Fever Within 48 Hours Sepsis New/Unexplained Change in Mental Status Sepsis Action Taken by Nursing Laboratory Data 06/17/23 09:52 06/17/23 09:52 Lab Results 06/17/23 06/17/23 06/17/23 Range/Units 09:52 09:56 10:23 WBC 15.29 H (4.8-10.8) K/ul RBC 4.97 (4.20-5.40) M/uL Hgb 14.0 (12.0-16.0) g/dl Hct 44.4 (37.0-47.0) % MCV 89.3 (80.0-100.0) fL MCH 28.2 (25.0-34.0) pg MCHC 31.5 L (32.0-36.0) g/dL RDW Std Deviation 42.6 (36.4-46.3) fL RDW Coeff of Dougie 13.1 (11.5-14.5) % Plt Count 272 (130-400) K/uL MPV 9.8 (9.4-12.4) fL Immature Gran % (Auto) 0.5 % Neut % (Auto) 86.0 % Lymph % (Auto) 8.2 % [place] % (Auto) 5.2 % Eos % (Auto) 0.0 % Baso % (Auto) 0.1 % Neut # (Auto) 13.15 H (1.40-6.50) K/uL Lymph # (Auto) 1.25 (1.20-3.40) K/uL [place] # (Auto) 0.80 H (0.11-0.59) K/uL Eos # (Auto) 0.00 (0.00-0.50) K/uL Baso # (Auto) 0.02 (0.00-0.20) K/uL Immature Gran # (Auto) 0.07 (0.01-0.20) K/uL D-Dimer 1100 H* (0-500) ug/L FEU VBG pH 7.35 L (7.36-7.41) VBG pCO2 46 (38-50) mmHg VBG pO2 39 mmHg VBG HCO3 25 mmol/L VBG O2 Saturation 62.2 % VBG Base Excess -0.6 mEq/L Sodium 139 (136-145) mmol/L Potassium 3.3 L (3.5-5.1) mmol/L Chloride 105 (98-107) mmol/L Carbon Dioxide 26 (21-32) mmol/L Anion Gap 8 (3-11) BUN 25 H (6-23) mg/dl Creatinine 1.05 (0.6-1.2) mg/dl Est Cr Clr Drug Dosing Not Reportable Est GFR ( Amer) 66.4 ml/min Est GFR (Non-Af Amer) 57.3 ml/min BUN/Creatinine Ratio 23.8 H (10-20) Glucose 117 H (70-99(Fasting)) mg/dl Calcium 8.1 L (8.6-10.3) mg/dl Total Bilirubin 0.5 (0.2-1.0) mg/dl AST 18 (13-39) U/L ALT 17 (7-52) U/L Alkaline Phosphatase 87 (34-104) U/L Troponin I High Sens 18.3 H (0-14) pg/ml B-Natriuretic Peptide 133 H (0-100) pg/ml Total Protein 6.8 (6.0-8.3) gm/dl Albumin 3.3 L (3.4-5.0) gm/dl Globulin 3.5 (2.5-4.0) gm/dl Albumin/Globulin Ratio 0.9 (0.9-2) Urine Color Urine Appearance (Clear) Urine pH (4.5-7.5) Ur Specific [place] (1.000-1.030) Urine Protein (Negative) Urine Glucose (UA) (Negative) Urine Ketones (Negative) Urine Blood (Negative) Urine Nitrite (Negative) Urine Bilirubin (Negative) Urine Urobilinogen (Negative) Ur Leukocyte Esterase (Negative) Urine WBC (Auto) (0-5) /hpf Urine RBC (Auto) (0-4) /hpf U Hyaline Cast (Auto) (0-5) /lpf U Epithel Cells (Auto) (0-5) /lpf Urine Bacteria (Auto) (Negative) Urine Yeast Adenovirus (PCR) Not Detected (NotDetected) B. pertussis DNA (PCR) Not Detected (NotDetected) B.parapertussis DNA PCR Not Detected (NotDetected) C. pneumoniae DNA (PCR) Not Detected (NotDetected) Coronavirus OC43 (PCR) Not Detected (NotDetected) Coronavirus HKU1 (PCR) Not Detected (NotDetected) Coronavirus 229E (PCR) Not Detected (NotDetected) SARS-CoV-2 (PCR) Not Detected (NotDetected) Coronavirus NL63 (PCR) Not Detected (NotDetected) Human Metapneumovir PCR Not Detected (NotDetected) Influenza A (H3) PCR DETECTED A* (NotDetected) Influenza Type B (PCR) Not Detected (NotDetected) M. pneumoniae (PCR) Not Detected (NotDetected) Parainfluenza 1 (PCR) Not Detected (NotDetected) Parainfluenza 2 (PCR) Not Detected (NotDetected) Parainfluenza 3 (PCR) Not Detected (NotDetected) Parainfluenza 4 (PCR) Not Detected (NotDetected) RSV (PCR) Not Detected (NotDetected) Entero/Rhino (PCR) Not Detected (NotDetected) 01/17/24 01/17/24 Range/Units 11:25 11:34 WBC (4.8-10.8) K/ul RBC (4.20-5.40) M/uL Hgb (12.0-16.0) g/dl Hct (37.0-47.0) % MCV (80.0-100.0) fL MCH (25.0-34.0) pg MCHC (32.0-36.0) g/dL RDW Std Deviation (36.4-46.3) fL RDW Coeff of Dougie (11.5-14.5) % Plt Count (130-400) K/uL MPV (9.4-12.4) fL Immature Gran % (Auto) % Neut % (Auto) % Lymph % (Auto) % [place] % (Auto) % Eos % (Auto) % Baso % (Auto) % Neut # (Auto) (1.40-6.50) K/uL Lymph # (Auto) (1.20-3.40) K/uL [place] # (Auto) (0.11-0.59) K/uL Eos # (Auto) (0.00-0.50) K/uL Baso # (Auto) (0.00-0.20) K/uL Immature Gran # (Auto) (0.01-0.20) K/uL D-Dimer (0-500) ug/L FEU VBG pH (7.36-7.41) VBG pCO2 (38-50) mmHg VBG pO2 mmHg VBG HCO3 mmol/L VBG O2 Saturation % VBG Base Excess mEq/L Sodium (136-145) mmol/L Potassium (3.5-5.1) mmol/L Chloride (98-107) mmol/L Carbon Dioxide (21-32) mmol/L Anion Gap (3-11) BUN (6-23) mg/dl Creatinine (0.6-1.2) mg/dl Est Cr Clr Drug Dosing Est GFR ( Amer) ml/min Est GFR (Non-Af Amer) ml/min BUN/Creatinine Ratio (10-20) Glucose (70-99(Fasting)) mg/dl Calcium (8.6-10.3) mg/dl Total Bilirubin (0.2-1.0) mg/dl AST (13-39) U/L ALT (7-52) U/L Alkaline Phosphatase (34-104) U/L Troponin I High Sens 19.3 H (0-14) pg/ml B-Natriuretic Peptide (0-100) pg/ml Total Protein (6.0-8.3) gm/dl Albumin (3.4-5.0) gm/dl Globulin (2.5-4.0) gm/dl Albumin/Globulin Ratio (0.9-2) Urine Color Yellow Urine Appearance Clear (Clear) Urine pH 7.0 (4.5-7.5) Ur Specific [place] 1.014 (1.000-1.030) Urine Protein Negative (Negative) Urine Glucose (UA) Negative (Negative) Urine Ketones Negative (Negative) Urine Blood Negative (Negative) Urine Nitrite Negative (Negative) Urine Bilirubin Negative (Negative) Urine Urobilinogen Negative (Negative) Ur Leukocyte Esterase Trace H (Negative) Urine WBC (Auto) 1-5 (0-5) /hpf Urine RBC (Auto) 0-4 (0-4) /hpf U Hyaline Cast (Auto) 0 (0-5) /lpf U Epithel Cells (Auto) >30 H (0-5) /lpf Urine Bacteria (Auto) 1+ H (Negative) Urine Yeast Not Reportable Adenovirus (PCR) (NotDetected) B. pertussis DNA (PCR) (NotDetected) B.parapertussis DNA PCR (NotDetected) C. pneumoniae DNA (PCR) (NotDetected) Coronavirus OC43 (PCR) (NotDetected) Coronavirus HKU1 (PCR) (NotDetected) Coronavirus 229E (PCR) (NotDetected) SARS-CoV-2 (PCR) (NotDetected) Coronavirus NL63 (PCR) (NotDetected) Human Metapneumovir PCR (NotDetected) Influenza A (H3) PCR (NotDetected) Influenza Type B (PCR) (NotDetected) M. pneumoniae (PCR) (NotDetected) Parainfluenza 1 (PCR) (NotDetected) Parainfluenza 2 (PCR) (NotDetected) Parainfluenza 3 (PCR) (NotDetected) Parainfluenza 4 (PCR) (NotDetected) RSV (PCR) (NotDetected) Entero/Rhino (PCR) (NotDetected) Administered Medications Discontinued Medications Albuterol (Albut/Ipratrop 3mg/0.5mg Neb 3 Ml Vial) 3 ml INH NOW STA Stop: 06/17/23 09:29 Last Admin: 06/17/23 10:09 Dose: 3 ml Documented By: JASPREET Ioversol (Optiray 320 125ml) 114 ml IV ONCE ONE Stop: 06/17/23 11:39 Last Admin: 06/17/23 11:39 Dose: 114 ml Documented By: ANDERS Methylprednisolone (Methylprednisolone 125 Mg/2 Ml Vial) 125 mg IV NOW STA Stop: 06/17/23 09:29 Last Admin: 06/17/23 10:09 Dose: 125 mg Documented By: JASPREET Ondansetron HCl (Ondansetron Inj 2 Mg/Ml 2 Ml Vial) 4 mg IV NOW STA Stop: 06/17/23 11:29 Last Admin: 06/17/23 11:31 Dose: 4 mg Documented By: NILS Imaging Data Radiologist's Impression: Chest X-Ray 06/17/23 09:28 XR chest 1V portable HISTORY: Dyspnea COMPARISON: Chest 04/04/2023. FINDINGS: The lungs are clear. Cardiac silhouette is normal in size. No pleural effusions. No pneumothorax. IMPRESSION: No acute process. ACT 112: Negative or not required by law. Electronically signed by: Rolo Castle M.D. 06/17/2023 9:42 AM Chest CTA 06/17/23 11:17 CT angio chest PE protocol CT DOSE: 643.43 mGy.cm HISTORY: 63 years-old Female with PE. Acute shortness of breath with fatigue and weakness TECHNIQUE: Multiple CTA images of the chest were obtained after the intravenous administration of 114 ml Optiray. Coronal and sagittal MIPS were obtained from the axial data set and were submitted for review. All measurements were obtained according to NASCET criteria. A dose lowering technique was utilized adhering to the principles of ALARA. COMPARISON: 04/04/2023 FINDINGS: CTA: The heart is normal in size without pericardial effusion. Mild coronary artery calcifications. There is atherosclerosis of the thoracic aorta without aneurysm. Patency of the imaged great vessels. Unremarkable pulmonary artery. CT CHEST: Multinodular thyroid goiter with subcentimeter nodules and calcifications. No lymphadenopathy. No pneumothorax, pleural effusion or pulmonary edema. Mild pulmonary emphysema with bronchial wall thickening suggestive of bronchitis. Mild bibasilar mucous plugging with subtle subsegmental tree-in-bud micronodules. Mild atelectasis and air trapping. Subsegmental consolidation lingular segment lingula, likely atelectatic. No acute upper abdominal abnormality. Unremarkable soft tissues. No acute fracture. Healed chronic right-sided rib fractures. IMPRESSION: 1. No pulmonary emboli identified. 2. Emphysema with bronchitis, mild mucous plugging and subtle subsegmental bibasilar predominant bronchiolitis. 3. No lymphadenopathy or pleural effusion. ACT 112: Negative or not required by law. The above report was generated using voice recognition software. It may contain grammatical, syntax or spelling errors. Electronically signed by: Allen Smith M.D. 06/17/2023 12:11 PM Discharge Plan Visit Data Chief Complaint: Shortness of Breath/Dyspnea Stated Complaint: ILLNESS ED Provider: Андрей Gold Discharge Problem: Influenza A Forms Stand Alone Forms: [facility] Prescriptions Prescriptions: No Action pantoprazole [Protonix] 40 mg tablet,delayed release (DR/EC) 40 mg PO QAM Qty: 90 3RF infliximab [Remicade] 100 mg recon soln See Rx Instructions IV Q8WK Qty: 8 8RF Rx Instructions: 10 mg/kg intravenously every 8 weeks; albuterol sulfate 90 mcg/actuation HFA aerosol inhaler 2 puff inhalation Q4H PRN (Reason: Shortness Of Breath Or Wheezing) Qty: 8.5 5RF Trelegy Ellipta 200-62.5-25 mcg blister with device 1 ea INHALATION QAM Qty: 60 4RF ipratropium-albuterol 0.5 mg-3 mg(2.5 mg base)/3 mL solution for nebulization 3 ml inhalation QID Qty: 180 5RF (DME) Portable Oxygen Misc See Rx Instructions .MEDSUPPLY Qty: 1 0RF Rx Instructions: Oxygen 2 liters continuous via nasal cannula on exertion with portable concentrator. ANA MARIA 99 Tezspire 210 mg/1.91 mL (110 mg/mL) pen injector 210 mg subcut Q4WK Qty: 1.91 11RF Rx Instructions: Inject 210 mg Subcutaneously every 4 weeks Approved via [facility] from 05/08/23-11/07/23 cholecalciferol (vitamin D3) [Vitamin D3] 1,000 unit Capsule 1,000 unit PO QAM bupropion HCl 150 mg tablet extended release 24 hr 150 mg PO QAM Women's One Daily 18 mg iron-400 mcg-500 mg Ca Tablet 1 tab PO QAM tramadol 50 mg tablet 50 mg PO BID PRN (Reason: Pain) gabapentin 800 mg tablet 800 mg PO TID celecoxib 100 mg capsule 100 mg PO DAILY duloxetine 60 mg capsule,delayed release(DR/EC) 60 mg PO QAM trazodone 50 mg tablet 50 mg PO HS atorvastatin 40 mg tablet 40 mg PO HS lisinopril 2.5 mg tablet 2.5 mg PO DAILY Referrals Referrals: Mekhi Reyes MD [Primary Care Provider] -
--- NOTE | 2023-06-17 09:43 | XRay Report ---
XR chest 1V portable HISTORY: Dyspnea COMPARISON: Chest 04/04/2023. FINDINGS: The lungs are clear. Cardiac silhouette is normal in size. No pleural effusions. No pneumot horax. IMPRESSION: No acute process. ACT 112: Negative or not required by law. Electronically signed by: Rolo Castle M.D. 06/17/2023 9:42 AM
[2023-06-17 10:07] LABS: Basophils # (auto) 0.02 K/uL (0.00-0.20); Basophils % (auto) 0.1 %; Hematocrit (blood only) 44.4 % (37.0-47.0); Immature Granulocytes # (auto) 0.07 K/uL (0.01-0.20); Immature Granulocytes % (auto) 0.5 %; Lymphocytes # (auto) 1.25 K/uL (1.20-3.40); Lymphocytes % (auto) 8.2 %; Mean Corpuscular Hemoglobin 28.2 pg (25.0-34.0); Mean Corpuscular Hgb Conc 31.5 g/dL (32.0-36.0); Mean Corpuscular Volume 89.3 fL (80.0-100.0); Mean Platelet Volume 9.8 fL (9.4-12.4); Monocytes % (auto) 5.2 %; Neutrophils # (auto) 13.15 K/uL (1.40-6.50); Platelet Count 272 K/uL (130-400); RDW Coefficient of Variation 13.1 % (11.5-14.5); RDW Standard Deviation 42.6 fL (36.4-46.3); Red Blood Count 4.97 M/uL (4.20-5.40); White Blood Count 15.29 K/ul (4.8-10.8)
[2023-06-17 10:32] LABS: Base Excess VBG -0.6 mEq/L; HCO3 VBG 25 mmol/L; Oxygen Saturation VBG 62.2 %; PCO2 VBG 46 mmHg (38-50); PO2 VBG 39 mmHg; pH VBG 7.35 (7.36-7.41)
[2023-06-17 10:33] LABS: Alanine Aminotransferase 17 U/L (7-52); Albumin Globulin Ratio 0.9 (0.9-2); Albumin Level 3.3 gm/dl (3.4-5.0); Alkaline Phosphatase 87 U/L (34-104); Anion Gap 8 (3-11); Aspartate Aminotransferase 18 U/L (13-39); BUN Creatinine Ratio 23.8 (10-20); Bilirubin,Total 0.5 mg/dl (0.2-1.0); Blood Urea Nitrogen 25 mg/dl (6-23); Calcium 8.1 mg/dl (8.6-10.3); Carbon Dioxide 26 mmol/L (21-32); Chloride 105 mmol/L (98-107); Est GFR (African American) 66.4 ml/min; Est GFR (Non-African American) 57.3 ml/min; Globulin 3.5 gm/dl (2.5-4.0); Glucose 117 mg/dl (70-99(Fasting)); Potassium 3.3 mmol/L (3.5-5.1); Sodium 139 mmol/L (136-145); Total Protein 6.8 gm/dl (6.0-8.3)
[2023-06-17 10:39] LABS: Troponin I High Sensitivity 18.3 pg/ml (0-14)
[2023-06-17 11:18] LABS: D Dimer 1100 ug/L FEU (0-500)
[2023-06-17] MEDS ORDERED: ONDANSETRON INJ 2 MG/ML 2 ML VIAL IV STA (11:28)
[2023-06-17] MEDS ORDERED: OPTIRAY 320 125ml IV ONE (11:38)
[2023-06-17 11:39] LABS: Adenovirus PCR Not Detected (NotDetected); Bordetella parapertussis PCR Not Detected (NotDetected); Bordetella pertussis PCR Not Detected (NotDetected); Chlamydia pneumoniae PCR Not Detected (NotDetected); Coronavirus 229E PCR Not Detected (NotDetected); Coronavirus CoV-2 (COVID19)PCR Not Detected (NotDetected); Coronavirus HKU1 PCR Not Detected (NotDetected); Coronavirus NL63 PCR Not Detected (NotDetected); Coronavirus OC43PCR Not Detected (NotDetected); Human Metapneumovirus PCR Not Detected (NotDetected); Influenza B PCR Not Detected (NotDetected); Mycoplasma pneumoniae PCR Not Detected (NotDetected); Parainfluenza Virus 1 PCR Not Detected (NotDetected); Parainfluenza Virus 2 PCR Not Detected (NotDetected); Parainfluenza Virus 3 PCR Not Detected (NotDetected); Parainfluenza Virus 4 PCR Not Detected (NotDetected); Respiratory Syncytial VirusPCR Not Detected (NotDetected); Rhinovirus/Enterovirus PCR Not Detected (NotDetected)
[2023-06-17 11:43] LABS: Influenza A (H3) PCR DETECTED (NotDetected)
[2023-06-17 12:12] LABS: Troponin I High Sensitivity 19.3 pg/ml (0-14)
--- NOTE | 2023-06-17 12:12 | CT Scan Report ---
CT angio chest PE protocol CT DOSE: 643.43 mGy.cm HISTORY: 63 years-old Female with PE. Acute shortness of breath with fatigue and weakness TECHNIQUE: Multiple CTA images of the chest were obtained after the intravenous administration of 114 ml Optiray. Coronal and sagittal MIPS were obtained from the axial data set and were submitted for review. All measurements were obtained according to NASCET criteria. A dose lowering technique was u tilized adhering to the principles of ALARA. COMPARISON: 04/04/2023 FINDINGS: CTA: The heart is normal in size without pericardial effusion. Mild coronary artery calcifications. There is atherosclerosis of the thoracic aorta without aneurysm. Patency of the imaged great vessels. Unrem arkable pulmonary artery. CT CHEST: Multinodular thyroid goiter with subcentimeter nodules and calcifications. No lymphadenopathy. No pne umothorax, pleural effusion or pulmonary edema. Mild pulmonary emphysema with bronchial wall thickeni ng suggestive of bronchitis. Mild bibasilar mucous plugging with subtle subsegmental tree-in-bud micr onodules. Mild atelectasis and air trapping. Subsegmental consolidation lingular segment lingula, lik misty atelectatic. No acute upper abdominal abnormality. Unremarkable soft tissues. No acute fracture. Healed chronic ri ght-sided rib fractures. IMPRESSION: 1. No pulmonary emboli identified. 2. Emphysema with bronchitis, mild mucous plugging and subtle subsegmental bibasilar predominant bron chiolitis. 3. No lymphadenopathy or pleural effusion. ACT 112: Negative or not required by law. The above report was generated using voice recognition software. It may contain grammatical, syntax o r spelling errors. Electronically signed by: Allen Smith M.D. 06/17/2023 12:11 PM
[2023-06-17 12:23] LABS: Appearance Urine Clear (Clear); Bilirubin Urine Negative (Negative); Blood Urine Negative (Negative); Cast Urine Automated 0 /lpf (0-5); Color Urine Yellow; Epithelial Cell Urine Auto >30 /lpf (0-5); Glucose Urine UA Negative (Negative); Ketones Urine Negative (Negative); Leukocyte Esterase Urine Trace (Negative); Nitrite Urine Negative (Negative); Protein Urine Negative (Negative); Specific Gravity Urine 1.014 (1.000-1.030); Urobilinogen Urine Negative (Negative)
[2023-06-17 12:43] LABS: Bacteria Urine Automated 1+ (Negative); RBC Urine Automated 0-4 /hpf (0-4)
[2023-06-17] MEDS ORDERED: OSELTAMIVIR PHOSPHATE 75 MG CAP PO STA (13:11)
[2023-06-17] MEDS ORDERED: MoRPHine SULFATE 4 MG/ML 1 ML CARP\\VIAL IV STA (13:14)
--- NOTE | 2023-06-17 13:30 | History & Physical Report ---
Date of Service June 17, 2023 Assessment & Plan (1) Influenza A: (2) COPD exacerbation: (3) Asthma: (4) Chronic respiratory failure with hypoxia: Plan: Patient is 63 year old female with PMH HTN, HLD, DM II, Crohn's, asthma, COPD, chronic respiratory failure on 2L oxygen, depression, LALO, GERD, chronic pain presented to ER with c/o cough, SOB, congestion, nausea, abdominal pain x 10 days. In ER patient afebrile, P: 125, BP: 127/92, R: 22, O2: 98% on 2L via NC Meets SIRS criteria WBC: 15. D-dimer: 1100. +influenza A CXR: No acute process CTA chest: No pulmonary emboli identified. Emphysema with bronchitis, mild mucous plugging and subtle subsegmental bibasilar predominant bronchiolitis. In ER given neb treatment with reported decreased SOB sensation per patient. Also given solumedrol 125mg, Tamiflu 75mg Start NSS bolus now and reassess. Obtain Lactate, procalcitonin, blood cultures Lactate: 1.5, Procalcitonin: <0.05 Reassessed after IVF. Patient with improvement, no longer tachycardic, still oxygenating well on chronic 2 L via nasal cannula, BP stable. Appears resuscitated Start cefepime, vancomycin MRSA swab pending Duonebs Prednisone 40mg daily Incentive spirometry, flutter valve Mucinex Continue Trelegy Continue home oxygen On Tezspire Q4 weeks. Last was 05/27/23 Pulmonology consult CBC, BMP in am (5) Sinus tachycardia: Plan: Sinus tachycardia Patient clinically appears dehydrated. Also has received multiple albuterol nebs IVF improving after IVF Monitor on telemetry (6) Hypokalemia: Plan: K: 3.3 Replace and monitor (7) Hypomagnesemia: Plan: Magnesium: 1.5 Replace and monitor (8) Elevated troponin: Plan: Troponin: 18-->19 15:54 EKG: poor tracing sinus rhythm, rate 91, nonspecific T wave abnormality per my interpretation (9) DM type 2 (diabetes mellitus, type 2): Plan: A1c: 6.4 on 04/05/23 Diet controlled Novolog sliding scale per protocol (10) Hypertension: Plan: Continue lisinopril (11) Hyperlipidemia: Plan: Continue atorvastatin (12) Chronic low back pain: Plan: Continue gabapentin, tramadol prn (13) Crohns disease: Plan: On infliximab. Last received 06/08/22 (14) Obstructive sleep apnea syndrome: Plan: Continue CPAP HS (15) GERD (gastroesophageal reflux disease): Plan: Continue PPI (16) Depression: Plan: Continue bupropion, duloxetine DVT Prophylaxis Lovenox SQ Full Code as per discussion with pt Follows with Dr Mekhi Reyes for routine care Pt was seen and care coordinated with Dr Esparza. See addendum History of Present Illness Chief Complaint: SOB, cough Primary Care Provider: Mekhi Reyes MD Patient is 63 year old female with PMH HTN, HLD, DM II, Crohn's, asthma, COPD, chronic respiratory failure on 2L oxygen, depression, LALO, GERD, chronic pain presented to ER with c/o cough, SOB. History obtained from patient, and outpatient and inpatient chart review. Patient states started feeling sick approximately 10 days ago with cough. Initially cough is productive but is no longer productive. Also with nasal congestion, increased SOB, MANSFIELD. She also reports chest discomfort when moving only. Generalized MANSFIELD. Initially some body aches as well. Feels symptoms are worsening. Describes intermittent sharp abdominal discomfort and nausea for past 5 days. Decreased appetite. One episode of vomiting today in ambulance EMS after reportedly taking aspirin. Also complains couple episodes of diarrhea. Last episode was yesterday. Feels dizzy with standing. She was feeling ill prior to her infusion, however had infliximab infusion 10 days ago. had congestion, cough last week as well after onset of patient however he is clearing his symptoms. Denies fever/chills past couple of days, denies diaphoresis, syncope, vision changes, neck pain, orthopnea, palpitations, hemoptysis, sore throat, choking, otalgia, extremity weakness, extremity edema, rashes, urinary symptoms, melena, hematochezia. Allergies Allergy/AdvReac Type Severity Reaction Status Date / Time adhesive tape AdvReac Severe TEARS SKIN Verified 06/15/23 08:30 Home Medications Medication Instructions Recorded Confirmed Type cholecalciferol (vitamin D3) 25 1,000 unit PO QAM 08/25/18 06/17/23 History mcg (1,000 unit) capsule (Vitamin D3) bupropion HCl 150 mg 24 hr tablet, 150 mg PO QAM 08/08/20 06/17/23 History extended release multivit-iron 18 mg-folic acid 400 1 tab PO QAM 08/08/20 06/17/23 History mcg-calcium 500 mg-minerals tablet (Women's One Daily) atorvastatin 40 mg tablet 40 mg PO HS 03/17/21 06/17/23 History trazodone 50 mg tablet 50 mg PO HS 03/17/21 06/17/23 History pantoprazole 40 mg tablet,delayed 40 mg PO QAM gastritis #90 tabs 06/24/21 06/17/23 Rx release (Protonix) infliximab 100 mg intravenous See Rx Instructions IV Q8WK #8 ea 02/04/23 06/17/23 Rx solution (Remicade) celecoxib 100 mg capsule 100 mg PO DAILY 04/04/23 06/17/23 History duloxetine 60 mg capsule,delayed 60 mg PO QAM 04/04/23 06/17/23 History release gabapentin 800 mg tablet 800 mg PO TID 04/04/23 06/17/23 History tramadol 50 mg tablet 50 mg PO BID PRN Pain 04/04/23 06/17/23 History Portable Oxygen #1 ea 05/06/23 06/17/23 Rx albuterol sulfate 90 mcg/actuation 2 puff inhalation Q4H PRN 05/06/23 06/17/23 Rx aerosol inhaler Shortness Of Breath Or Wheezing #8.5 grams fluticasone fur. 200 mcg-umeclid 1 ea inhalation QAM #60 ea 05/06/23 06/17/23 Rx 62.5 mcg-vilant 25 mcg inhalat.powder (Trelegy Ellipta) tezepelumab-ekko 210 mg/1.91 mL 210 mg (1.91 mL) subcut Q4WK #1.91 05/14/23 06/17/23 Rx (110 mg/mL) subcutaneous pen mL injector (Tezspire) ipratropium 0.5 mg-albuterol 3 mg 3 ml inhalation QID PRN Shortness 06/17/23 06/17/23 History (2.5 mg base)/3 mL nebulization Of Breath Or Wheezing soln lisinopril 2.5 mg tablet 2.5 mg PO DAILY 06/17/23 06/17/23 History Past Med/Surg History Medical History Elevated IgE level Acute asthma exacerbation Leiomyoma of uterus History of COVID-19 diagnosed 03/17/21 @ [facility]--had difficulty breathing d/t COPD and had to hospitalized with oxygen for 1 week, pt states no lingering symptoms Crohns disease GERD (gastroesophageal reflux disease) DM type 2 (diabetes mellitus, type 2) NIDDM- DIET CONTROLLED Depression Anxiety History of migraine LALO (obstructive sleep apnea) CPAP DVT prophylaxis Asthma COPD (chronic obstructive pulmonary disease) well controlled w/ inhaler daily/prn, has not needed neb in "a while" Chronic low back pain Hyperlipidemia Hypertension Surgical History History of appendectomy S/P colon resection (07/04/21) Laparoscopic Assisted Right Colon Resection - Gildardo Woods MD, FACS 07/04/2021 History of esophagogastroduodenoscopy (EGD) History of tooth extraction History of tubal ligation History of D&C History of appendectomy History of lumbar surgery x 5; hardware present History of colonoscopy last 02/21/21 @ [facility] History of carpal tunnel surgery BL Family History Brother Diabetes Father , in early 60s from AMI Diabetes Myocardial infarction Mother , in her 60s; "natural" causes No problems noted. Other No family history of adverse response to anesthesia Denies family history of Inflammatory bowel disease Social History Smoking Status: Former smoker Tobacco Type: Cigarettes packs per day: 2.5; Second Hand Exposure: No; Do You Dip or Chew Tobacco: No; Hx Alcohol Use: No Hx Substance Use: No Preferred Language: Italian Communication Ability: Effective Visual Impairment: Limited Hearing Ability: Normal Public Welfare Worker Required: No Beliefs That Will Affect Care: None marital status: Current Living Situation: Spouse Current Living Situation Comment: Lives with and grandson current occupational status: retired current occupation: worked at [employer] How many Children do You have: 1 other: lives in [place] Feels Safe at Home: Yes Diet: diabetic Seatbelt Use: always Do you think of yourself as: straight/heterosexual Gender Identity: Female Assistive Devices: CPAP, Glasses, Nebulizer and Oxygen - Continuous Review of Systems Review of Systems: All systems reviewed & are unremarkable except as noted in HPI & below Physical Exam Physical Exam: PE per Dr Esparza Results & Data Results & Data Vital Signs (Past 12 Hours) Vital Signs Temp Pulse Pulse Resp BP BP Pulse Ox 06/17/23 13:00 36.9 C 105 H 22 129/88 99 06/17/23 11:35 36.9 C 106 H 22 127/88 99 06/17/23 11:35 93 06/17/23 11:35 06/17/23 09:42 126 H 06/17/23 09:41 125 H 22 98 06/17/23 09:41 36.8 C 125 H 22 127/92 98 O2 Del Method O2 Flow Rate 06/17/23 13:00 Nasal Cannula 2 06/17/23 11:35 Nasal Cannula 2 06/17/23 11:35 Nasal Cannula 2 06/17/23 11:35 Nasal Cannula 2 06/17/23 09:42 06/17/23 09:41 Nasal Cannula 2 06/17/23 09:41 Nasal Cannula 2 Laboratory Results Short CBC 06/17/23 Range/Units 09:52 WBC 15.29 H (4.8-10.8) K/ul Hgb 14.0 (12.0-16.0) g/dl Hct 44.4 (37.0-47.0) % Plt Count 272 (130-400) K/uL BMP 06/17/23 09:52 Sodium 139 Potassium 3.3 L Chloride 105 Carbon Dioxide 26 BUN 25 H Creatinine 1.05 Glucose 117 H Calcium 8.1 L Liver Function 06/17/23 Range/Units 09:52 Total Bilirubin 0.5 (0.2-1.0) mg/dl AST 18 (13-39) U/L ALT 17 (7-52) U/L Alkaline Phosphatase 87 (34-104) U/L Albumin 3.3 L (3.4-5.0) gm/dl Urine 06/17/23 Range/Units 11:25 Urine Color Yellow Urine Appearance Clear (Clear) Urine pH 7.0 (4.5-7.5) Ur Specific [place] 1.014 (1.000-1.030) Urine Protein Negative (Negative) Urine Glucose (UA) Negative (Negative) Diagnostic Findings Chest X-Ray 06/17/23 09:28 XR chest 1V portable HISTORY: Dyspnea COMPARISON: Chest 04/04/2023. FINDINGS: The lungs are clear. Cardiac silhouette is normal in size. No pleural effusions. No pneumothorax. IMPRESSION: No acute process. ACT 112: Negative or not required by law. Electronically signed by: Rolo Castle M.D. 06/17/2023 9:42 AM Chest CTA 06/17/23 11:17 CT angio chest PE protocol CT DOSE: 643.43 mGy.cm HISTORY: 63 years-old Female with PE. Acute shortness of breath with fatigue and weakness TECHNIQUE: Multiple CTA images of the chest were obtained after the intravenous administration of 114 ml Optiray. Coronal and sagittal MIPS were obtained from the axial data set and were submitted for review. All measurements were obtained according to NASCET criteria. A dose lowering technique was utilized adhering to the principles of ALARA. COMPARISON: 04/04/2023 FINDINGS: CTA: The heart is normal in size without pericardial effusion. Mild coronary artery calcifications. There is atherosclerosis of the thoracic aorta without aneurysm. Patency of the imaged great vessels. Unremarkable pulmonary artery. CT CHEST: Multinodular thyroid goiter with subcentimeter nodules and calcifications. No lymphadenopathy. No pneumothorax, pleural effusion or pulmonary edema. Mild pulmonary emphysema with bronchial wall thickening suggestive of bronchitis. Mild bibasilar mucous plugging with subtle subsegmental tree-in-bud micronodules. Mild atelectasis and air trapping. Subsegmental consolidation lingular segment lingula, likely atelectatic. No acute upper abdominal abnormality. Unremarkable soft tissues. No acute fracture. Healed chronic right-sided rib fractures. IMPRESSION: 1. No pulmonary emboli identified. 2. Emphysema with bronchitis, mild mucous plugging and subtle subsegmental bibasilar predominant bronchiolitis. 3. No lymphadenopathy or pleural effusion. ACT 112: Negative or not required by law. The above report was generated using voice recognition software. It may contain grammatical, syntax or spelling errors. Electronically signed by: Allen Smith M.D. 06/17/2023 12:11 PM Supervising Physician Co-Signing Physician Notes History and physical exam performed by me 63 year old woman with h/o COPD, asthma, on 2L/min oxygen, Crohn's and other med problems who presents with cough, worsening SOB for over 10 days. Reported she was given prednisone kit but did not start it due to being on Remicaid infusion for her Crohn's (last infusion was 10 days ago) Associated with chest pain usually with movement, abd pain, diarrhea, nausea, anorexia Had one episode of vomiting with EMS. On exam, General: Ill appearing. Eyes: PERRL, conjunctivae normal, not pale, anicteric sclerae, EOM intact bilaterally ENMT: Dry oral mucosa Respiratory: Mild tachypnea, on 2L/min NC (home dose), diminished breath sounds, no crackles Cardiovascular: Tachycardic, regular, S1 S2 Gastrointestinal (Abdomen): Abdomen is not distended, soft, non-tender to palpation, no guarding, no palpable hepatosplenomegaly, normal bowel sounds Musculoskeletal: No pedal edema. Small wound dressing on left ramirez (reports dressing is from wound clinic from injury from home oxygen tank) Neurologic: Alert and oriented x 3, No focal weakness, sensation grossly intact Psychiatric: Alert and oriented x 3, euthymic affect Labs notable for WBC 15k, DDimer 1100, K 3.3, Trop 18-19 Resp PCR + Flu A CXR was unremarkable CT PE was negative for PE but noted Emphysema with bronchitis, mild mucous plugging and subtle bibasilar bronchiolitis. COPD exacerbation Influenza A infection Possible Sepsis as patient met SIRS with leukocytosis, tachycardia Considering worsening symptoms of over 10 days, possibility of secondary bacteria infection in a patient on infliximab infusions for Crohn's Check lactate, procal, blood cultures Broad spectrum Abx with Vanc and Cefepime for now. Deescalate as appropriate Check MRSA Give 30cc/kg IVF bolus ([place] body weight 55Kg) Patient is out of window for Tamiflu Duonebs Got solumedrol. Continue prednisone Pulm consult Guaifenesin q12h Antitussives prn Antiemetic prn Supportive care Trop is mildly elevated but flat. Get EKG Replete hypomagnesemia Other plans as detailed by Marlen Lorenzo PA-C I spent a total of 50 minutes coordinating, documenting and providing care for this patient excluding time spent in performance of separately billed services (15) GERD (gastroesophageal reflux disease) Esophagitis presence: esophagitis presence not specified Qualified Code(s): K21.9 - Gastro-esophageal reflux disease without esophagitis
[2023-06-17] MEDS ORDERED: SODIUM CHLORIDE 0.9% 500 ML IV ONE (13:54)
[2023-06-17] MEDS: POTASSIUM CHLORIDE PWD 20 MEQ PACK PO SCH ×2 (14:07→20:22)
[2023-06-17 14:09] LABS: Magnesium 1.5 mg/dl (1.7-2.4)
[2023-06-17] MEDS ORDERED: MAGNESIUM SULFATE / D5W 1 GM/100 ML BAG IV ONE (14:15)
[2023-06-17] MEDS ORDERED: CEFEPIME 2,000 MG in SYRINGE 0 ML IV STA (14:27)
[2023-06-17] MEDS ORDERED: SODIUM CHLORIDE 0.9% 1,000 ML IV ONE (14:30)
[2023-06-17] MEDS ORDERED: ACETAMINOPHEN 325 MG TAB ONE (18:05)
[2023-06-17] MEDS ORDERED: ACETAMINOPHEN 325 MG TAB PO PRN (18:06)
[2023-06-17] MEDS ORDERED: GLUCAGON FOR INJ 1 MG VIAL SQ PRN (19:37)
[2023-06-17] MEDS ORDERED: POLYETHYLENE (MIRALAX) 17 GM PACK PO PRN (19:37)
[2023-06-17] MEDS ORDERED: VANCOMYCIN HCL 1,250 MG in SODIUM CHLORIDE 0.9% 500 ML IV SCH (19:37)
[2023-06-17] MEDS ORDERED: VANCOMYCIN CONSULT ACTIVE PRN (19:37)
[2023-06-17] MEDS ORDERED: ONDANSETRON INJ 2 MG/ML 2 ML VIAL IV PRN (19:37)
[2023-06-17] MEDS ORDERED: CARBOHYDRATES FOR HYPOGLYCEMIA PO PRN (19:37)
[2023-06-17] MEDS ORDERED: GLUCOSE 10 TAB/TUBE PO PRN (19:37)
[2023-06-17] MEDS ORDERED: BENZONATATE 100 MG CAPSULE PO PRN (19:37)
[2023-06-17] MEDS ORDERED: GLUCOSE 40% GEL 15 GM TUBE PO PRN (19:37)
[2023-06-17] MEDS ORDERED: DEXTROSE 50% 50 ML SYRINGE IV PRN (19:37)
[2023-06-17] MEDS ORDERED: VANCOMYCIN HCL 2,000 MG in SODIUM CHLORIDE 0.9% 500 ML IV ONE (19:45)
[2023-06-17] MEDS ORDERED: POTASSIUM CHLORIDE CRTAB 20 MEQ TABCR PO ONE (20:00)
[2023-06-17] MEDS ORDERED: SODIUM CHLORIDE 0.9% 1,000 ML IV SCH (20:00)
[2023-06-17] MEDS: DULoxetine HCL 60 MG CAP PO SCH (20:20)
[2023-06-17] MEDS: buPROPion XL 150 MG TABCR PO SCH (20:20)
[2023-06-17] MEDS: guaiFENesin 600 MG TABCR PO SCH (20:20)
[2023-06-17] MEDS: PANTOprazole 40 MG TAB PO SCH (20:21)
[2023-06-17] MEDS: ENOXAPARIN INJ 40 MG/0.4 ML SYR SQ SCH (20:21)
[2023-06-17] MEDS: ALBUT/IPRATROP 3MG/0.5MG NEB 3 ML VIAL NEB SCH (20:23)
[2023-06-17] MEDS: GABAPENTIN 800 MG TAB PO SCH (20:25)
[2023-06-17] MEDS: ATORVASTATIN 40 MG TAB PO SCH (20:25)
[2023-06-17] MEDS: traZODone HCL 50 MG TAB PO SCH (20:26)
[2023-06-17] MEDS: INSULIN ASPART PER UNIT CHARGE SC SCH (20:45)
[2023-06-17] MEDS: traMADol HCL 50 MG TABLET PO PRN (21:43)
[2023-06-18] MEDS ORDERED: CEFEPIME 2,000 MG in SYRINGE 0 ML IV SCH (04:00)
[2023-06-18 06:00] LABS: Basophils # (auto) 0.01 K/uL (0.00-0.20); Basophils % (auto) 0.1 %; Hematocrit (blood only) 38.3 % (37.0-47.0); Hemoglobin 11.8 g/dl (12.0-16.0); Immature Granulocytes # (auto) 0.03 K/uL (0.01-0.20); Immature Granulocytes % (auto) 0.4 %; Lymphocytes # (auto) 0.95 K/uL (1.20-3.40); Lymphocytes % (auto) 12.1 %; Mean Corpuscular Hgb Conc 30.8 g/dL (32.0-36.0); Mean Platelet Volume 9.9 fL (9.4-12.4); Monocytes # (auto) 0.72 K/uL (0.11-0.59); Monocytes % (auto) 9.1 %; Neutrophils # (auto) 6.16 K/uL (1.40-6.50); Neutrophils % (auto) 78.3 %; Platelet Count 219 K/uL (130-400); RDW Coefficient of Variation 13.2 % (11.5-14.5); RDW Standard Deviation 44.1 fL (36.4-46.3); Red Blood Count 4.21 M/uL (4.20-5.40); White Blood Count 7.87 K/ul (4.8-10.8)
[2023-06-18 06:19] LABS: BUN Creatinine Ratio 22.3 (10-20); Calcium 7.9 mg/dl (8.6-10.3); Creatinine Clr Calc Pharmacy 65.9 ml/min; Est GFR (African American) 75.9 ml/min; Est GFR (Non-African American) 65.5 ml/min; Magnesium 2.2 mg/dl (1.7-2.4); Potassium 4.5 mmol/L (3.5-5.1)
[2023-06-18] MEDS: ALBUT/IPRATROP 3MG/0.5MG NEB 3 ML VIAL NEB SCH ×4 (07:15→20:17)
[2023-06-18] MEDS: UMECLIDINIUM/VILANTEROL 62.5/25MCG 7 PUFFS/INHALER INH SCH (08:38)
[2023-06-18] MEDS: FLUTICASONE FUROATE 200MCG 14 PUFFS/INHALER INH SCH (08:38)
[2023-06-18] MEDS: CHOLECALCIFEROL 1,000 UNITS 25 MCG TAB PO SCH (08:40)
[2023-06-18] MEDS: DULoxetine HCL 60 MG CAP PO SCH (08:40)
[2023-06-18] MEDS: buPROPion XL 150 MG TABCR PO SCH (08:40)
[2023-06-18] MEDS: GABAPENTIN 800 MG TAB PO SCH ×3 (08:40→21:10)
[2023-06-18] MEDS: lisinopril 2.5 MG TAB PO SCH (08:40)
[2023-06-18] MEDS: CELECOXIB 100 MG CAP PO SCH (08:40)
[2023-06-18] MEDS: guaiFENesin 600 MG TABCR PO SCH ×2 (08:40→21:12)
[2023-06-18] MEDS: PANTOprazole 40 MG TAB PO SCH (08:41)
[2023-06-18] MEDS: predniSONE 20 MG TAB PO SCH (08:41)
[2023-06-18] MEDS: INSULIN ASPART PER UNIT CHARGE SC SCH ×4 (08:44→21:13)
[2023-06-18] MEDS ORDERED: NON-FORMULARY MEDICATION (Fluticasone-Umeclidin-Vilanter [Trelegy Ellipta] 200-62.5-25 mcg INH SCH (09:00)
--- NOTE | 2023-06-18 09:13 | Pulmonary Consultation ---
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 There is no evidence of superimposed bacterial infection at this time. Her procalcitonin is unremarkable and there is no consolidation noted on the CT chest. Antibiotics have been discontinued. Recommend a short prednisone course. Continue as needed nebs and maintenance ICS/LABA/LAMA inhaler. She will need to follow-up with her outpatient recycling coordinator. History of Present Illness Reason for Consultation: "COPD exac" Attending Physician: Jay Agee MD History of Present Illness 63-year-old female with history of asthma COPD overlap followed in the pulmonary clinic on home oxygen presenting to the ER due to increasing shortness of breath and intermittent chest discomfort. She tested positive for influenza. She notes that her symptoms started about 7 days ago. She had a chest CTA which I personally reviewed from 06/17/2023 which revealed emphysema and bronchitis. There was some mild mucous plugging noted in the bibasilar segments. She is currently on cefepime and prednisone 40 mg p.o. daily. She is also receiving vancomycin. MRSA screen was negative. Pro-Sabas was unremarkable as well. She was recently started on Tezspire earlier this month for eosinophilic asthma. Allergies Allergy/AdvReac Type Severity Reaction Status Date / Time adhesive tape AdvReac Severe TEARS SKIN Verified 06/15/23 08:30 Home Medications Medication Instructions Recorded Confirmed Type cholecalciferol (vitamin D3) 25 1,000 unit PO QAM 08/25/18 06/17/23 History mcg (1,000 unit) capsule (Vitamin D3) bupropion HCl 150 mg 24 hr tablet, 150 mg PO QAM 08/08/20 06/17/23 History extended release multivit-iron 18 mg-folic acid 400 1 tab PO QAM 08/08/20 06/17/23 History mcg-calcium 500 mg-minerals tablet (Women's One Daily) atorvastatin 40 mg tablet 40 mg PO HS 03/17/21 06/17/23 History trazodone 50 mg tablet 50 mg PO HS 03/17/21 06/17/23 History pantoprazole 40 mg tablet,delayed 40 mg PO QAM gastritis #90 tabs 06/24/21 06/17/23 Rx release (Protonix) infliximab 100 mg intravenous See Rx Instructions IV Q8WK #8 ea 02/04/23 06/17/23 Rx solution (Remicade) celecoxib 100 mg capsule 100 mg PO DAILY 04/04/23 06/17/23 History duloxetine 60 mg capsule,delayed 60 mg PO QAM 04/04/23 06/17/23 History release gabapentin 800 mg tablet 800 mg PO TID 04/04/23 06/17/23 History tramadol 50 mg tablet 50 mg PO BID PRN Pain 04/04/23 06/17/23 History Portable Oxygen #1 ea 05/06/23 06/17/23 Rx albuterol sulfate 90 mcg/actuation 2 puff inhalation Q4H PRN 05/06/23 06/17/23 Rx aerosol inhaler Shortness Of Breath Or Wheezing #8.5 grams fluticasone fur. 200 mcg-umeclid 1 ea inhalation QAM #60 ea 05/06/23 06/17/23 Rx 62.5 mcg-vilant 25 mcg inhalat.powder (Trelegy Ellipta) tezepelumab-ekko 210 mg/1.91 mL 210 mg (1.91 mL) subcut Q4WK #1.91 05/14/23 06/17/23 Rx (110 mg/mL) subcutaneous pen mL injector (Tezspire) ipratropium 0.5 mg-albuterol 3 mg 3 ml inhalation QID PRN Shortness 06/17/23 06/17/23 History (2.5 mg base)/3 mL nebulization Of Breath Or Wheezing soln lisinopril 2.5 mg tablet 2.5 mg PO DAILY 06/17/23 06/17/23 History Patient History Medical History (Updated 06/18/23 @ 09:10 by Edgar Jordan MD) Eosinophilic asthma Acute viral bronchitis Elevated IgE level Acute asthma exacerbation Leiomyoma of uterus History of COVID-19 diagnosed 03/17/21 @ [facility]--had difficulty breathing d/t COPD and had to hospitalized with oxygen for 1 week, pt states no lingering symptoms Crohns disease GERD (gastroesophageal reflux disease) DM type 2 (diabetes mellitus, type 2) NIDDM- DIET CONTROLLED Depression Anxiety History of migraine LALO (obstructive sleep apnea) CPAP DVT prophylaxis Asthma COPD (chronic obstructive pulmonary disease) well controlled w/ inhaler daily/prn, has not needed neb in "a while" Chronic low back pain Hyperlipidemia Hypertension Surgical History History of appendectomy S/P colon resection (07/04/21) Laparoscopic Assisted Right Colon Resection - Gildardo Woods MD, FACS 07/04/2021 History of esophagogastroduodenoscopy (EGD) History of tooth extraction History of tubal ligation History of D&C History of appendectomy History of lumbar surgery x 5; hardware present History of colonoscopy last 02/21/21 @ [facility] History of carpal tunnel surgery BL Family History Brother Diabetes Father , in early 60s from AMI Diabetes Myocardial infarction Mother , in her 60s; "natural" causes No problems noted. Other No family history of adverse response to anesthesia Denies family history of Inflammatory bowel disease Social History Smoking Status: Former smoker Tobacco Type: Cigarettes packs per day: 2.5; Smoking End Date: 2004; Second Hand Exposure: No; Do You Dip or Chew Tobacco: No; Hx Alcohol Use: No Hx Substance Use: No Preferred Language: Kosovan Communication Ability: Effective Visual Impairment: Limited Hearing Ability: Normal Melting Operator Required: No Beliefs That Will Affect Care: None marital status: Current Living Situation: Spouse and Family Current Living Situation Comment: lives with and grandson current occupational status: retired current occupation: worked at [employer] How many Children do You have: 1 other: lives in [place] Feels Safe at Home: Yes Diet: diabetic Seatbelt Use: always Do you think of yourself as: straight/heterosexual Gender Identity: Female Assistive Devices: Denture - Upper, Denture - Lower, Glasses and Oxygen - Continuous Review of Systems Review of Systems: All systems reviewed & are unremarkable except as noted in HPI & below Physical Exam Physical Exam: Constitutional: Patient appears to be of their stated age. Patient is in no apparent distress. Patient is well-developed. Eyes: Pupils are equal round and reactive to light. Conjunctivae are normal. Anicteric sclera. Ears nose, mouth and throat: Mallampati class 2. Normal posterior oropharynx. Uvula is midline. Neck: Trachea is midline. Visual inspection is normal. Respiratory: Diminished lung sounds bilaterally. No wheezes. Cardiovascular: Regular rate and rhythm. No murmurs. No edema. Gastrointestinal: Normal bowel sounds, soft, nontender and nondistended. No hepatosplenomegaly noted. Musculoskeletal: No cyanosis. Patient is able to move all extremities. Strength is 5 out of 5 in the upper and lower extremities. Skin: No rashes, warm dry and intact. Neurologic: No obvious focal neurological deficits seen. Psychiatric: Alert and oriented x3 with a euthymic affect. Results & Data Results & Data Vital Signs (Past 12 Hours) Vital Signs Temp Pulse Pulse Resp BP BP Pulse Ox 06/18/23 07:54 36.7 C 108 H 19 118/62 94 06/18/23 07:32 36.7 C 120 H 22 124/81 93 06/18/23 07:17 120 H 18 95 06/18/23 03:04 36.7 C 98 H 18 136/84 94 06/17/23 21:58 76 06/17/23 21:53 89 06/17/23 21:30 06/17/23 21:30 36.7 C 83 20 131/79 93 O2 Del Method O2 Flow Rate 06/18/23 07:54 Nasal Cannula 2 06/18/23 07:32 Nasal Cannula 2 06/18/23 07:17 Nasal Cannula 2 06/18/23 03:04 Nasal Cannula 2 06/17/23 21:58 06/17/23 21:53 06/17/23 21:30 Nasal Cannula 2 06/17/23 21:30 Nasal Cannula PG Care Time/CCT Total # of Minutes Spent Total Time Spent with Patient: Total time spent is greater than 50% in coordination of care (as documented) at patient's floor/unit and/or counseling patient: Coding Level of Care Code 88479 INT INP/OBS CARE 1/40MIN Diagnoses Acute viral bronchitis J20.8 Influenza A J10.1 Eosinophilic asthma J82.83
[2023-06-18] MEDS ORDERED: VANCOMYCIN HCL 750 MG in SODIUM CHLORIDE 0.9% 250 ML IV SCH (10:00)
[2023-06-18] MEDS: ACETAMINOPHEN 325 MG TAB PO PRN ×2 (14:03→17:42)
--- NOTE | 2023-06-18 14:53 | Hospitalist Progress Note ---
Date of Service June 18, 2023 Assessment & Plan (1) COPD exacerbation: Plan: Patient is 63 year old female with PMH HTN, HLD, DM II, Crohn's, asthma, COPD, chronic respiratory failure on 2L oxygen, depression, LALO, GERD, chronic pain presented to ER with c/o cough, SOB, congestion, nausea, abdominal pain x 10 days. In ER patient afebrile, P: 125, BP: 127/92, R: 22, O2: 98% on 2L via NC Secondary to influenza A virus infection Meets sepsis criteria secondary to influenza A on admission Does not have any pneumonia -procalcitonin has been negative, chest x-ray and CT of the chest are unremarkable Acute viral bronchitis Appreciate pulmonary input and recommendation Will continue nebulized bronchodilator and intravenous Solu-Medrol Antibiotics have been discontinued and will continue with Tamiflu Urine cultures and blood cultures are pending MRSA screen has been negative She received IV fluid in the emergency room and will discontinue Clinically much better today and will continue current medications Duonebs Prednisone 40mg daily Incentive spirometry, flutter valve Mucinex Continue Trelegy Continue home oxygen On Tezspire Q4 weeks. Last was 05/27/23 Pulmonology consult-appreciate input and recommendation Other significant medical conditions remain stable Type 2 diabetes LALO Hypertension Hyperlipidemia Crohn's disease-has been receiving Tezspire every 4 weeks-last 1 was 05/27/2023 Recurrent Colonic stricture DVT prophylaxis Subcu Lovenox CODE STATUS Full (2) Influenza A: Plan: Will continue with Tamiflu (3) Asthma: (4) Chronic respiratory failure with hypoxia: (5) Sinus tachycardia: Plan: Sinus tachycardia Patient clinically appears dehydrated. Also has received multiple albuterol nebs IVF improving after IVF Monitor on telemetry (6) Hypokalemia: Plan: K: 3.3 Replace and monitor (7) Hypomagnesemia: Plan: Magnesium: 1.5 Replace and monitor (8) Elevated troponin: Plan: Troponin: 18-->19 15:54 EKG: poor tracing sinus rhythm, rate 91, nonspecific T wave abnormality per my interpretation (9) DM type 2 (diabetes mellitus, type 2): Plan: A1c: 6.4 on 04/05/23 Diet controlled Novolog sliding scale per protocol (10) Hypertension: Plan: Continue lisinopril (11) Hyperlipidemia: Plan: Continue atorvastatin (12) Chronic low back pain: Plan: Continue gabapentin, tramadol prn (13) Crohns disease: Plan: On infliximab. Last received 06/08/22 May have immunosuppression on infliximab Will continue Tamiflu (14) Obstructive sleep apnea syndrome: Plan: Continue CPAP HS (15) GERD (gastroesophageal reflux disease): Plan: Continue PPI (16) Depression: Plan: Continue bupropion, duloxetine DVT Prophylaxis Lovenox SQ Full Code as per discussion with pt Follows with Dr Mekhi Reyes for routine care Pt was seen and care coordinated with Dr Esparza. See addendum Admission and Anticipated Discharge Date Admission Date: June 17, 2023 Supervising Physician Co-Signing Physician Notes History and physical exam performed by me 63 year old woman with h/o COPD, asthma, on 2L/min oxygen, Crohn's and other med problems who presents with cough, worsening SOB for over 10 days. Reported she was given prednisone kit but did not start it due to being on [employer] infusion for her Crohn's (last infusion was 10 days ago) Associated with chest pain usually with movement, abd pain, diarrhea, nausea, anorexia Had one episode of vomiting with EMS. On exam, General: Ill appearing. Eyes: PERRL, conjunctivae normal, not pale, anicteric sclerae, EOM intact bilaterally ENMT: Dry oral mucosa Respiratory: Mild tachypnea, on 2L/min NC (home dose), diminished breath sounds, no crackles Cardiovascular: Tachycardic, regular, S1 S2 Gastrointestinal (Abdomen): Abdomen is not distended, soft, non-tender to palpation, no guarding, no palpable hepatosplenomegaly, normal bowel sounds Musculoskeletal: No pedal edema. Small wound dressing on left ramirez (reports dressing is from wound clinic from injury from home oxygen tank) Neurologic: Alert and oriented x 3, No focal weakness, sensation grossly intact Psychiatric: Alert and oriented x 3, euthymic affect Labs notable for WBC 15k, DDimer 1100, K 3.3, Trop 18-19 Resp PCR + Flu A CXR was unremarkable CT PE was negative for PE but noted Emphysema with bronchitis, mild mucous plugging and subtle bibasilar bronchiolitis. COPD exacerbation Influenza A infection Possible Sepsis as patient met SIRS with leukocytosis, tachycardia Considering worsening symptoms of over 10 days, possibility of secondary bacteria infection in a patient on infliximab infusions for Crohn's Check lactate, procal, blood cultures Broad spectrum Abx with Vanc and Cefepime for now. Deescalate as appropriate Check MRSA Give 30cc/kg IVF bolus ([place] body weight 55Kg) Patient is out of window for Tamiflu Duonebs Got solumedrol. Continue prednisone Pulm consult Guaifenesin q12h Antitussives prn Antiemetic prn Supportive care Trop is mildly elevated but flat. Get EKG Replete hypomagnesemia Other plans as detailed by Marlen Lorenzo PA-C I spent a total of 50 minutes coordinating, documenting and providing care for this patient excluding time spent in performance of separately billed services Subjective 06/18/2023 The patient was seen and examined in medical telemetry unit She was admitted with acute shortness of breath with wheezing Noted to have influenza A with history of COPD/asthma Has been feeling much better since admission Review of Systems Review of Systems: All systems reviewed and are unremarkable except as noted below Physical Exam Physical Exam: Lying in bed with minimal shortness of breath Constitutional: + ill appearing and average body habitus Eyes: PERRL, conjunctivae normal, anicteric sclerae ENMT: external ear and nose normal, oropharynx normal Neck: trachea midline, no thyromegaly Respiratory: + respiratory distress (Minimal respirat ory distress) Auscultation: + diminished lung sounds and + wheezes (Bilaterally) Cardiovascular: Rate/Rhythm: regular rate, regular rhythm and + tachycardic Heart Sounds: normal S1 and normal S2; no murmur Extremities: no edema Gastrointestinal (Abdomen): Inspection/Auscultation: normal bowel sounds; abdomen not distended Percussion/Palpation: abdomen soft; abdomen nontender Musculoskeletal: No acute arthritis involving any of the joint Neurologic: normal touch/pain/proprioception and moves all extremities; no focal motor deficits Psychiatric: A+Ox3, euthymic affect Lymphatic: no cervical or axillary lymphadenopathy Results & Data Results & Data Vital Signs (Past 12 Hours) Vital Signs Temp Pulse Pulse Resp BP BP Pulse Ox 06/18/23 14:37 105 H 17 96 06/18/23 12:15 36.4 C L 114 H 17 120/77 92 06/18/23 10:32 110 H 16 95 06/18/23 08:00 110 H 06/18/23 07:54 36.7 C 108 H 19 118/62 94 06/18/23 07:32 36.7 C 120 H 22 124/81 93 06/18/23 07:17 120 H 18 95 06/18/23 03:04 36.7 C 98 H 18 136/84 94 O2 Del Method O2 Flow Rate 06/18/23 14:37 Nasal Cannula 2 06/18/23 12:15 Nasal Cannula 2 06/18/23 10:32 Nasal Cannula 2 06/18/23 08:00 06/18/23 07:54 Nasal Cannula 2 06/18/23 07:32 Nasal Cannula 2 06/18/23 07:17 Nasal Cannula 2 06/18/23 03:04 Nasal Cannula 2 Laboratory Results Short CBC 06/18/23 Range/Units 05:30 WBC 7.87 (4.8-10.8) K/ul Hgb 11.8 L (12.0-16.0) g/dl Hct 38.3 (37.0-47.0) % Plt Count 219 (130-400) K/uL BMP 06/18/23 05:30 Sodium 139 Potassium 4.5 D Chloride 111 H Carbon Dioxide 26 BUN 21 Creatinine 0.94 Glucose 92 Calcium 7.9 L Medications Administered Current Inpatient Medications Acetaminophen (Acetaminophen 325 Mg Tab) 650 mg PO Q4H PRN PRN Reason: Pain or Fever Stop: 07/17/23 19:36 Last Admin: 06/18/23 14:03 Dose: 650 mg Albuterol (Albut/Ipratrop 3mg/0.5mg Neb 3 Ml Vial) 3 ml NEB QIDR [facility]; Protocol Stop: 07/17/23 19:59 Last Admin: 06/18/23 14:36 Dose: 3 ml Atorvastatin Calcium (Atorvastatin 40 Mg Tab) 40 mg PO HS [facility] Stop: 07/17/23 20:59 Last Admin: 06/17/23 20:25 Dose: 40 mg Benzonatate (Benzonatate 100 Mg Capsule) 100 mg PO TID PRN PRN Reason: cough Stop: 07/17/23 19:36 Last Admin: 06/18/23 05:41 Dose: 100 mg Bupropion HCl (Bupropion Xl 150 Mg Tabcr) 150 mg PO QAM [facility] Stop: 07/17/23 19:59 Last Admin: 06/18/23 08:40 Dose: 150 mg Celecoxib (Celecoxib 100 Mg Cap) 100 mg PO DAILY [facility] Stop: 07/18/23 08:59 Last Admin: 06/18/23 08:40 Dose: 100 mg Dextrose (Dextrose 50% 50 Ml Syringe) 25 - 50 ml IV UD PRN; Protocol PRN Reason: Hypoglycemia Protocol Stop: 07/17/23 19:36 Duloxetine HCl (Duloxetine Hcl 60 Mg Cap) 60 mg PO QAM [facility] Stop: 07/17/23 19:59 Last Admin: 06/18/23 08:40 Dose: 60 mg Enoxaparin Sodium (Enoxaparin Inj 40 Mg/0.4 Ml Syr) 40 mg SQ Q24H [facility] Stop: 07/17/23 19:59 Last Admin: 06/17/23 20:21 Dose: 40 mg Fluticasone Furoate (Fluticasone Furoate 200mcg 14 Puffs/Inhaler) 1 puffs INH DAILY [facility] Stop: 07/18/23 08:59 Last Admin: 06/18/23 08:38 Dose: 1 puffs Gabapentin (Gabapentin 800 Mg Tab) 800 mg PO TID [facility] Stop: 07/17/23 20:59 Last Admin: 06/18/23 14:03 Dose: 800 mg Glucagon (Glucagon For Inj 1 Mg Vial) 1 mg SQ UD PRN; Protocol PRN Reason: Hypoglycemia Protocol Stop: 07/17/23 19:36 Glucose (Glucose 10 Tab/Tube) 4 - 8 tab PO UD PRN; Protocol PRN Reason: Hypoglycemia Treatment Stop: 07/17/23 19:36 Glucose (Glucose 40% Gel 15 Gm Tube) 15 - 30 gm PO UD PRN; Protocol PRN Reason: Hypoglycemia Protocol Stop: 07/17/23 19:36 Guaifenesin (Guaifenesin 600 Mg Tabcr) 1,200 mg PO Q12 [facility] Stop: 07/17/23 20:59 Last Admin: 06/18/23 08:40 Dose: 1,200 mg Insulin Aspart (Insulin Aspart Per Unit Charge) 0 units SC ACHS [facility] Stop: 07/17/23 20:59 Last Admin: 06/18/23 12:58 Dose: 2 units Lisinopril (Lisinopril 2.5 Mg Tab) 2.5 mg PO DAILY [facility] Stop: 07/18/23 08:59 Last Admin: 06/18/23 08:40 Dose: 2.5 mg Miscellaneous (Carbohydrates For Hypoglycemia ) 15 - 30 gm PO UD PRN PRN Reason: Hypoglycemia Protocol Stop: 07/17/23 19:36 Ondansetron HCl (Ondansetron Inj 2 Mg/Ml 2 Ml Vial) 4 mg IV Q6H PRN PRN Reason: Nausea Stop: 07/17/23 19:36 Pantoprazole Sodium (Pantoprazole 40 Mg Tab) 40 mg PO QAM [facility] Stop: 07/17/23 19:59 Last Admin: 06/18/23 08:41 Dose: 40 mg Polyethylene Glycol (Polyethylene (Miralax) 17 Gm Pack) 17 gm PO DAILY PRN PRN Reason: Constipation Stop: 07/17/23 19:36 Potassium Chloride (Potassium Chloride Pwd 20 Meq Pack) 20 meq PO QAM [facility] Stop: 07/17/23 13:14 Last Admin: 06/17/23 20:22 Dose: 20 meq Prednisone (Prednisone 20 Mg Tab) 40 mg PO DAILY [facility] Stop: 07/18/23 08:59 Last Admin: 06/18/23 08:41 Dose: 40 mg Tramadol HCl (Tramadol Hcl 50 Mg Tablet) 50 mg PO BID PRN PRN Reason: Mod-Sev Pain (Scale 4-10) Stop: 07/17/23 19:36 Last Admin: 06/17/23 21:43 Dose: 50 mg Trazodone HCl (Trazodone Hcl 50 Mg Tab) 50 mg PO HS [facility] Stop: 07/17/23 20:59 Last Admin: 06/17/23 20:26 Dose: 50 mg Umeclidinium/Vilanterol (Umeclidinium/Vilanterol 62.5/25mcg 7 Puffs/Inhaler) 1 puffs INH DAILY [facility] Stop: 07/18/23 08:59 Last Admin: 06/18/23 08:38 Dose: 1 puffs Vitamin D (Cholecalciferol 1,000 Units 25 Mcg Tab) 1,000 units PO QAM [facility] Stop: 07/18/23 08:59 Last Admin: 06/18/23 08:40 Dose: 1,000 units (15) GERD (gastroesophageal reflux disease) Esophagitis presence: esophagitis presence not specified Qualified Code(s): K21.9 - Gastro-esophageal reflux disease without esophagitis
[2023-06-18] MEDS: traZODone HCL 50 MG TAB PO SCH (21:10)
[2023-06-18] MEDS: ENOXAPARIN INJ 40 MG/0.4 ML SYR SQ SCH (21:11)
[2023-06-18] MEDS: traMADol HCL 50 MG TABLET PO PRN (21:12)
[2023-06-18] MEDS: ATORVASTATIN 40 MG TAB PO SCH (21:12)
[2023-06-18] MEDS: OSELTAMIVIR PHOSPHATE 75 MG CAP PO SCH (21:13)
[2023-06-19] MEDS: ALBUT/IPRATROP 3MG/0.5MG NEB 3 ML VIAL NEB SCH ×4 (07:29→19:50)
[2023-06-19] MEDS: lisinopril 2.5 MG TAB PO SCH (09:00)
[2023-06-19] MEDS: guaiFENesin 600 MG TABCR PO SCH ×2 (09:00→20:56)
[2023-06-19] MEDS: GABAPENTIN 800 MG TAB PO SCH ×3 (09:00→20:57)
[2023-06-19] MEDS: POTASSIUM CHLORIDE PWD 20 MEQ PACK PO SCH (09:00)
[2023-06-19] MEDS: OSELTAMIVIR PHOSPHATE 75 MG CAP PO SCH ×2 (09:00→20:56)
[2023-06-19] MEDS: CELECOXIB 100 MG CAP PO SCH (09:00)
[2023-06-19] MEDS: UMECLIDINIUM/VILANTEROL 62.5/25MCG 7 PUFFS/INHALER INH SCH (09:01)
[2023-06-19] MEDS: predniSONE 20 MG TAB PO SCH (09:01)
[2023-06-19] MEDS: CHOLECALCIFEROL 1,000 UNITS 25 MCG TAB PO SCH (09:01)
[2023-06-19] MEDS: buPROPion XL 150 MG TABCR PO SCH (09:01)
[2023-06-19] MEDS: DULoxetine HCL 60 MG CAP PO SCH (09:01)
[2023-06-19] MEDS: PANTOprazole 40 MG TAB PO SCH (09:01)
[2023-06-19] MEDS: FLUTICASONE FUROATE 200MCG 14 PUFFS/INHALER INH SCH (09:02)
[2023-06-19] MEDS: INSULIN ASPART PER UNIT CHARGE SC SCH ×4 (09:07→20:55)
--- NOTE | 2023-06-19 10:21 | Pulmonology Progress Note ---
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 She is back to her home oxygen requirements. She will be stable for discharge home tomorrow. Continue as needed nebs and maintenance ICS/LABA/LAMA inhaler. She will need to follow-up with her outpatient steel unloader. No further recommendations. Thank you for the consult. Please call with questions. Admission and Anticipated Discharge Date Admission Date: June 17, 2023 Subjective Patient still complaining of some shortness of breath with exertion. Denies any chest pain. No fevers, chills or night sweats. Review of Systems Review of Systems: All systems reviewed & are unremarkable except as noted in HPI & below Physical Exam Physical Exam: Constitutional: Patient appears to be of their stated age. Patient is in no apparent distress. Patient is well-developed. Eyes: Pupils are equal round and reactive to light. Conjunctivae are normal. Anicteric sclera. Ears nose, mouth and throat: Mallampati class 2. Normal posterior oropharynx. Uvula is midline. Neck: Trachea is midline. Visual inspection is normal. Respiratory: Diminished lung sounds bilaterally. No wheezes. Cardiovascular: Regular rate and rhythm. No murmurs. No edema. Gastrointestinal: Normal bowel sounds, soft, nontender and nondistended. No hepatosplenomegaly noted. Musculoskeletal: No cyanosis. Patient is able to move all extremities. Strength is 5 out of 5 in the upper and lower extremities. Skin: No rashes, warm dry and intact. Neurologic: No obvious focal neurological deficits seen. Psychiatric: Alert and oriented x3 with a euthymic affect. Results & Data Results & Data Vital Signs (Past 12 Hours) Vital Signs Temp Pulse Pulse Resp BP Pulse Ox O2 Del Method 06/19/23 09:49 Nasal Cannula 06/19/23 08:00 103 H 06/19/23 07:58 36.5 C 115 H 16 126/79 92 Nasal Cannula 06/19/23 07:29 107 H 18 96 Nasal Cannula 06/19/23 04:15 36.7 C 101 H 18 119/74 93 Nasal Cannula 01/18/24 23:19 109 H O2 Flow Rate 06/19/23 09:49 2 06/19/23 08:00 06/19/23 07:58 2 06/19/23 07:29 2 06/19/23 04:15 2 06/18/23 23:19 PG Care Time/CCT Total # of Minutes Spent Total Time Spent with Patient: Total time spent is greater than 50% in coordination of care (as documented) at patient's floor/unit and/or counseling patient: Coding Level of Care Code 45028 SUB INP/OBS CARE 06/25MIN Diagnoses Acute viral bronchitis J20.8 Influenza A J10.1 Eosinophilic asthma J82.83
--- NOTE | 2023-06-19 17:05 | Hospitalist Progress Note ---
Date of Service June 19, 2023 Assessment & Plan (1) COPD exacerbation: Plan: Patient is 63 year old female with PMH HTN, HLD, DM II, Crohn's, asthma, COPD, chronic respiratory failure on 2L oxygen, depression, LALO, GERD, chronic pain presented to ER with c/o cough, SOB, congestion, nausea, abdominal pain x 10 days. In ER patient afebrile, P: 125, BP: 127/92, R: 22, O2: 98% on 2L via NC Secondary to influenza A virus infection Meets sepsis criteria secondary to influenza A on admission Does not have any pneumonia -procalcitonin has been negative, chest x-ray and CT of the chest are unremarkable Acute viral bronchitis Appreciate pulmonary input and recommendation Will continue nebulized bronchodilator and intravenous Solu-Medrol Antibiotics have been discontinued and will continue with Tamiflu Urine cultures and blood cultures are pending MRSA screen has been negative She received IV fluid in the emergency room and will discontinue Clinically much better today and will continue current medications Duonebs Prednisone 40mg daily Incentive spirometry, flutter valve Mucinex Continue Trelegy Continue home oxygen On Tezspire Q4 weeks. Last was 05/27/23 Pulmonology consult-appreciate input and recommendation Remains stable and complains to have less wheezing and shortness of breath Has been improving gradually Will need a day or 2 more before discharge Other significant medical conditions remain stable Type 2 diabetes LALO Hypertension Hyperlipidemia Crohn's disease-has been receiving Tezspire every 4 weeks-last 1 was 05/27/2023 Recurrent Colonic stricture DVT prophylaxis Subcu Lovenox CODE STATUS Full (2) Influenza A: Plan: Will continue with Tamiflu (3) Asthma: (4) Chronic respiratory failure with hypoxia: (5) Sinus tachycardia: Plan: Sinus tachycardia Patient clinically appears dehydrated. Also has received multiple albuterol nebs IVF improving after IVF Monitor on telemetry (6) Hypokalemia: Plan: K: 3.3 Replace and monitor (7) Hypomagnesemia: Plan: Magnesium: 1.5 Replace and monitor (8) Elevated troponin: Plan: Troponin: 18-->19 15:54 EKG: poor tracing sinus rhythm, rate 91, nonspecific T wave abnormality per my interpretation (9) DM type 2 (diabetes mellitus, type 2): Plan: A1c: 6.4 on 04/05/23 Diet controlled Novolog sliding scale per protocol (10) Hypertension: Plan: Continue lisinopril (11) Hyperlipidemia: Plan: Continue atorvastatin (12) Chronic low back pain: Plan: Continue gabapentin, tramadol prn (13) Crohns disease: Plan: On infliximab. Last received 06/08/22 May have immunosuppression on infliximab Will continue Tamiflu (14) Obstructive sleep apnea syndrome: Plan: Continue CPAP HS (15) GERD (gastroesophageal reflux disease): Plan: Continue PPI (16) Depression: Plan: Continue bupropion, duloxetine DVT Prophylaxis Lovenox SQ Full Code as per discussion with pt Follows with Dr Mekhi Reyes for routine care Pt was seen and care coordinated with Dr Esparza. See addendum Admission and Anticipated Discharge Date Admission Date: June 17, 2023 Subjective 06/18/2023 The patient was seen and examined in medical telemetry unit She was admitted with acute shortness of breath with wheezing Noted to have influenza A with history of COPD/asthma Has been feeling much better since admission 06/19/2023 The patient was seen and examined in medical telemetry unit She has been feeling a little better today Less shortness of breath and less wheezing Review of Systems Review of Systems: All systems reviewed and are unremarkable except as noted below Physical Exam Physical Exam: Lying in bed with minimal shortness of breath Constitutional: + ill appearing and average body habitus Eyes: PERRL, conjunctivae normal, anicteric sclerae ENMT: external ear and nose normal, oropharynx normal Neck: trachea midline, no thyromegaly Respiratory: + respiratory distress (Minimal respirat ory distress) Auscultation: + diminished lung sounds and + wheezes (Bilaterally) Cardiovascular: Rate/Rhythm: regular rate, regular rhythm and + tachycardic Heart Sounds: normal S1 and normal S2; no murmur Extremities: no edema Gastrointestinal (Abdomen): Inspection/Auscultation: normal bowel sounds; abdomen not distended Percussion/Palpation: abdomen soft; abdomen nontender Neurologic: normal touch/pain/proprioception and moves all extremities; no focal motor deficits Psychiatric: A+Ox3, euthymic affect Lymphatic: no cervical or axillary lymphadenopathy Results & Data Results & Data Vital Signs (Past 12 Hours) Vital Signs Temp Pulse Pulse Resp BP Pulse Ox O2 Del Method 06/19/23 16:03 36.8 C 119 H 16 125/68 91 Nasal Cannula 06/19/23 15:59 117 H 06/19/23 15:38 114 H 20 91 Nasal Cannula 06/19/23 11:33 36.7 C 121 H 16 120/76 93 Nasal Cannula 06/19/23 10:56 107 H 18 95 Nasal Cannula 06/19/23 09:49 Nasal Cannula 06/19/23 08:00 103 H 06/19/23 07:58 36.5 C 115 H 16 126/79 92 Nasal Cannula 06/19/23 07:29 107 H 18 96 Nasal Cannula O2 Flow Rate 06/19/23 16:03 2 06/19/23 15:59 06/19/23 15:38 2 06/19/23 11:33 2 06/19/23 10:56 2 06/19/23 09:49 2 06/19/23 08:00 06/19/23 07:58 2 06/19/23 07:29 2 Medications Administered Current Inpatient Medications Acetaminophen (Acetaminophen 325 Mg Tab) 650 mg PO Q4H PRN PRN Reason: Pain or Fever Stop: 07/17/23 19:36 Last Admin: 06/18/23 17:42 Dose: 650 mg Albuterol (Albut/Ipratrop 3mg/0.5mg Neb 3 Ml Vial) 3 ml NEB QIDR [facility]; Protocol Stop: 07/17/23 19:59 Last Admin: 06/19/23 15:38 Dose: 3 ml Atorvastatin Calcium (Atorvastatin 40 Mg Tab) 40 mg PO HS [facility] Stop: 07/17/23 20:59 Last Admin: 06/18/23 21:12 Dose: 40 mg Benzonatate (Benzonatate 100 Mg Capsule) 100 mg PO TID PRN PRN Reason: cough Stop: 07/17/23 19:36 Last Admin: 06/18/23 05:41 Dose: 100 mg Bupropion HCl (Bupropion Xl 150 Mg Tabcr) 150 mg PO QAM [facility] Stop: 07/17/23 19:59 Last Admin: 06/19/23 09:01 Dose: 150 mg Celecoxib (Celecoxib 100 Mg Cap) 100 mg PO DAILY [facility] Stop: 07/18/23 08:59 Last Admin: 06/19/23 09:00 Dose: 100 mg Dextrose (Dextrose 50% 50 Ml Syringe) 25 - 50 ml IV UD PRN; Protocol PRN Reason: Hypoglycemia Protocol Stop: 07/17/23 19:36 Duloxetine HCl (Duloxetine Hcl 60 Mg Cap) 60 mg PO QAM [facility] Stop: 07/17/23 19:59 Last Admin: 06/19/23 09:01 Dose: 60 mg Enoxaparin Sodium (Enoxaparin Inj 40 Mg/0.4 Ml Syr) 40 mg SQ Q24H [facility] Stop: 07/17/23 19:59 Last Admin: 06/18/23 21:11 Dose: 40 mg Fluticasone Furoate (Fluticasone Furoate 200mcg 14 Puffs/Inhaler) 1 puffs INH DAILY [facility] Stop: 07/18/23 08:59 Last Admin: 06/19/23 09:02 Dose: 1 puffs Gabapentin (Gabapentin 800 Mg Tab) 800 mg PO TID [facility] Stop: 07/17/23 20:59 Last Admin: 06/19/23 13:16 Dose: 800 mg Glucagon (Glucagon For Inj 1 Mg Vial) 1 mg SQ UD PRN; Protocol PRN Reason: Hypoglycemia Protocol Stop: 07/17/23 19:36 Glucose (Glucose 10 Tab/Tube) 4 - 8 tab PO UD PRN; Protocol PRN Reason: Hypoglycemia Treatment Stop: 07/17/23 19:36 Glucose (Glucose 40% Gel 15 Gm Tube) 15 - 30 gm PO UD PRN; Protocol PRN Reason: Hypoglycemia Protocol Stop: 07/17/23 19:36 Guaifenesin (Guaifenesin 600 Mg Tabcr) 1,200 mg PO Q12 [facility] Stop: 07/17/23 20:59 Last Admin: 06/19/23 09:00 Dose: 1,200 mg Insulin Aspart (Insulin Aspart Per Unit Charge) 0 units SC ACHS [facility] Stop: 07/17/23 20:59 Last Admin: 06/19/23 13:19 Dose: 4 units Lisinopril (Lisinopril 2.5 Mg Tab) 2.5 mg PO DAILY [facility] Stop: 07/18/23 08:59 Last Admin: 06/19/23 09:00 Dose: 2.5 mg Miscellaneous (Carbohydrates For Hypoglycemia ) 15 - 30 gm PO UD PRN PRN Reason: Hypoglycemia Protocol Stop: 07/17/23 19:36 Ondansetron HCl (Ondansetron Inj 2 Mg/Ml 2 Ml Vial) 4 mg IV Q6H PRN PRN Reason: Nausea Stop: 07/17/23 19:36 Oseltamivir Phosphate (Oseltamivir Phosphate 75 Mg Cap) 75 mg PO BID [facility]; Protocol Stop: 06/23/23 20:59 Last Admin: 06/19/23 09:00 Dose: 75 mg Pantoprazole Sodium (Pantoprazole 40 Mg Tab) 40 mg PO QAM [facility] Stop: 07/17/23 19:59 Last Admin: 06/19/23 09:01 Dose: 40 mg Polyethylene Glycol (Polyethylene (Miralax) 17 Gm Pack) 17 gm PO DAILY PRN PRN Reason: Constipation Stop: 07/17/23 19:36 Potassium Chloride (Potassium Chloride Pwd 20 Meq Pack) [facility] Stop: 07/17/23 13:14 Last Admin: 06/19/23 09:00 Dose: 20 meq Prednisone (Prednisone 20 Mg Tab) 40 mg PO DAILY [facility] Stop: 07/18/23 08:59 Last Admin: 06/19/23 09:01 Dose: 40 mg Tramadol HCl (Tramadol Hcl 50 Mg Tablet) 50 mg PO BID PRN PRN Reason: Mod-Sev Pain (Scale 4-10) Stop: 07/17/23 19:36 Last Admin: 06/18/23 21:12 Dose: 50 mg Trazodone HCl (Trazodone Hcl 50 Mg Tab) 50 mg PO HS [facility] Stop: 07/17/23 20:59 Last Admin: 06/18/23 21:10 Dose: 50 mg Umeclidinium/Vilanterol (Umeclidinium/Vilanterol 62.5/25mcg 7 Puffs/Inhaler) 1 puffs INH DAILY [facility] Stop: 07/18/23 08:59 Last Admin: 06/19/23 09:01 Dose: 1 puffs Vitamin D (Cholecalciferol 1,000 Units 25 Mcg Tab) 1,000 units PO QAM [facility] Stop: 07/18/23 08:59 Last Admin: 06/19/23 09:01 Dose: 1,000 units (15) GERD (gastroesophageal reflux disease) Esophagitis presence: esophagitis presence not specified Qualified Code(s): K21.9 - Gastro-esophageal reflux disease without esophagitis
[2023-06-19] MEDS: ENOXAPARIN INJ 40 MG/0.4 ML SYR SQ SCH (20:55)
[2023-06-19] MEDS: ATORVASTATIN 40 MG TAB PO SCH (20:56)
[2023-06-19] MEDS: traZODone HCL 50 MG TAB PO SCH (20:56)
--- NOTE | 2023-06-19 21:38 | Electrocardiogram Report ---
Test Reason : Blood Pressure : / mmHG Vent. Rate : 124 BPM Atrial Rate : 124 BPM P-R Int : 126 ms QRS Dur : 070 ms QT Int : 302 ms P-R-T Axes : 072 076 079 degrees QTc Int : 433 ms Poor data quality, interpretation may be adversely affected Sinus tachycardia with Premature supraventricular complexes When compared with ECG of 04-APR-2023 13:15, Premature ventricular complexes are no longer Present Premature supraventricular complexes are now Present Confirmed by Iban Pantoja ([id number]) on 06/19/2023 9:38:24 PM Referred By: REFERRED SELF Confirmed By:Iban Pantoja
--- NOTE | 2023-06-19 22:19 | Electrocardiogram Report ---
Test Reason : Blood Pressure : / mmHG Vent. Rate : 091 BPM Atrial Rate : 091 BPM P-R Int : 152 ms QRS Dur : 088 ms QT Int : 380 ms P-R-T Axes : 060 075 089 degrees QTc Int : 467 ms Poor data quality, interpretation may be adversely affected Sinus rhythm Otherwise normal ECG When compared with ECG of 04-APR-2023 13:15, Premature atrial complexes are no longer Present Confirmed by Iban Pantoja ([id number]) on 06/19/2023 10:18:53 PM Referred By: REFERRED SELF Confirmed By:Iban Pantoja
--- NOTE | 2023-06-19 22:51 | Electrocardiogram Report ---
Test Reason : Blood Pressure : / mmHG Vent. Rate : 111 BPM Atrial Rate : 111 BPM P-R Int : 186 ms QRS Dur : 078 ms QT Int : 320 ms P-R-T Axes : 066 071 065 degrees QTc Int : 435 ms Poor data quality, interpretation may be adversely affected Sinus tachycardia Otherwise normal ECG When compared with ECG of 17-JUN-2023 15:54, No significant change Confirmed by Iban Pantoja ([id number]) on 06/19/2023 10:51:09 PM Referred By: REFERRED SELF Confirmed By:Iban Pantoja
[2023-06-20] MEDS: ALBUT/IPRATROP 3MG/0.5MG NEB 3 ML VIAL NEB SCH ×3 (07:16→15:07)
[2023-06-20] MEDS: GABAPENTIN 800 MG TAB PO SCH ×2 (08:49→12:59)
[2023-06-20] MEDS: FLUTICASONE FUROATE 200MCG 14 PUFFS/INHALER INH SCH (08:49)
[2023-06-20] MEDS: DULoxetine HCL 60 MG CAP PO SCH (08:49)
[2023-06-20] MEDS: predniSONE 20 MG TAB PO SCH (08:49)
[2023-06-20] MEDS: PANTOprazole 40 MG TAB PO SCH (08:49)
[2023-06-20] MEDS: POTASSIUM CHLORIDE PWD 20 MEQ PACK PO SCH (08:49)
[2023-06-20] MEDS: UMECLIDINIUM/VILANTEROL 62.5/25MCG 7 PUFFS/INHALER INH SCH (08:49)
[2023-06-20] MEDS: lisinopril 2.5 MG TAB PO SCH (08:50)
[2023-06-20] MEDS: CELECOXIB 100 MG CAP PO SCH (08:50)
[2023-06-20] MEDS: CHOLECALCIFEROL 1,000 UNITS 25 MCG TAB PO SCH (08:50)
[2023-06-20] MEDS: OSELTAMIVIR PHOSPHATE 75 MG CAP PO SCH (08:50)
[2023-06-20] MEDS: buPROPion XL 150 MG TABCR PO SCH (08:50)
[2023-06-20] MEDS: guaiFENesin 600 MG TABCR PO SCH (08:50)
[2023-06-20] MEDS: INSULIN ASPART PER UNIT CHARGE SC SCH ×2 (08:55→13:01)
--- NOTE | 2023-06-20 11:08 | Hospitalist Progress Note ---
Date of Service June 20, 2023 Assessment & Plan (1) COPD exacerbation: Plan: Patient is 63 year old female with PMH HTN, HLD, DM II, Crohn's, asthma, COPD, chronic respiratory failure on 2L oxygen, depression, LALO, GERD, chronic pain presented to ER with c/o cough, SOB, congestion, nausea, abdominal pain x 10 days. In ER patient afebrile, P: 125, BP: 127/92, R: 22, O2: 98% on 2L via NC Secondary to influenza A virus infection Meets sepsis criteria secondary to influenza A on admission Does not have any pneumonia -procalcitonin has been negative, chest x-ray and CT of the chest are unremarkable Acute viral bronchitis Appreciate pulmonary input and recommendation Will continue nebulized bronchodilator and intravenous Solu-Medrol Antibiotics have been discontinued and will continue with Tamiflu Urine cultures and blood cultures are pending MRSA screen has been negative She received IV fluid in the emergency room and will discontinue Clinically much better today and will continue current medications Duonebs Prednisone 40mg daily Incentive spirometry, flutter valve Mucinex Continue Trelegy Continue home oxygen On Tezspire Q4 weeks. Last was 05/27/23 Pulmonology consult-appreciate input and recommendation Remains stable and complains to have less wheezing and shortness of breath No complaints of shortness of breath or wheezing at rest Clinically much better Advised to ambulate in the hallway and if she feels better she will be discharged home this afternoon Continue home oxygen Other significant medical conditions remain stable Type 2 diabetes LALO Hypertension Hyperlipidemia Crohn's disease-has been receiving Tezspire every 4 weeks-last 1 was 05/27/2023 Recurrent Colonic stricture DVT prophylaxis Subcu Lovenox CODE STATUS Full (2) Influenza A: Plan: Will continue with Tamiflu (3) Asthma: (4) Chronic respiratory failure with hypoxia: (5) Sinus tachycardia: Plan: Sinus tachycardia Patient clinically appears dehydrated. Also has received multiple albuterol nebs IVF improving after IVF Monitor on telemetry (6) Hypokalemia: Plan: K: 3.3 Replace and monitor (7) Hypomagnesemia: Plan: Magnesium: 1.5 Replace and monitor (8) Elevated troponin: Plan: Troponin: 18-->19 15:54 EKG: poor tracing sinus rhythm, rate 91, nonspecific T wave abnormality per my interpretation (9) DM type 2 (diabetes mellitus, type 2): Plan: A1c: 6.4 on 04/05/23 Diet controlled Novolog sliding scale per protocol (10) Hypertension: Plan: Continue lisinopril (11) Hyperlipidemia: Plan: Continue atorvastatin (12) Chronic low back pain: Plan: Continue gabapentin, tramadol prn (13) Crohns disease: Plan: On infliximab. Last received 06/08/22 May have immunosuppression on infliximab Will continue Tamiflu (14) Obstructive sleep apnea syndrome: Plan: Continue CPAP HS (15) GERD (gastroesophageal reflux disease): Plan: Continue PPI (16) Depression: Plan: Continue bupropion, duloxetine DVT Prophylaxis Lovenox SQ Full Code as per discussion with pt Follows with Dr Mekhi Reyes for routine care Will be discharged home this afternoon Admission and Anticipated Discharge Date Admission Date: June 17, 2023 Subjective 06/18/2023 The patient was seen and examined in medical telemetry unit She was admitted with acute shortness of breath with wheezing Noted to have influenza A with history of COPD/asthma Has been feeling much better since admission 06/19/2023 The patient was seen and examined in medical telemetry unit She has been feeling a little better today Less shortness of breath and less wheezing 06/20/2023 The patient was seen and examined in medical telemetry unit She has been feeling much better today and feels like going home this afternoon She has had shortness of breath with exertion last evening She is strongly advised to move around the hallway and see how it goes in the afternoon before going home Review of Systems Review of Systems: All systems reviewed and are unremarkable except as noted below Physical Exam Physical Exam: Lying in bed with minimal shortness of breath Constitutional: average body habitus; not ill appearing Eyes: PERRL, conjunctivae normal, anicteric sclerae ENMT: external ear and nose normal, oropharynx normal Neck: trachea midline, no thyromegaly Respiratory: no respiratory distress (Minimal respiratory distress) Auscultation: + diminished lung sounds and + wheezes (Little or no wheezing) Cardiovascular: Rate/Rhythm: regular rate, regular rhythm and + tachycardic Heart Sounds: normal S1 and normal S2; no murmur Extremities: no edema Gastrointestinal (Abdomen): Inspection/Auscultation: normal bowel sounds; abdomen not distended Percussion/Palpation: abdomen soft; abdomen nontender Musculoskeletal: No acute arthritis involving any of the joint Neurologic: normal touch/pain/proprioception and moves all extremities; no focal motor deficits Psychiatric: A+Ox3, euthymic affect Lymphatic: no cervical or axillary lymphadenopathy Results & Data Results & Data Vital Signs (Past 12 Hours) Vital Signs Temp Pulse Pulse Resp BP BP Pulse Ox 06/20/23 10:42 06/20/23 08:09 36.8 C 118 H 18 120/79 94 06/20/23 07:16 118 H 20 95 06/20/23 07:09 105 H 06/20/23 04:00 36.7 C 101 H 18 130/85 95 06/19/23 23:45 36.6 C 106 H 18 119/75 93 06/19/23 23:33 101 H O2 Del Method O2 Flow Rate 06/20/23 10:42 Nasal Cannula 2 06/20/23 08:09 Nasal Cannula 2 06/20/23 07:16 Nasal Cannula 2 06/20/23 07:09 06/20/23 04:00 Nasal Cannula 2 06/19/23 23:45 Nasal Cannula 2 06/19/23 23:33 Medications Administered Current Inpatient Medications Acetaminophen (Acetaminophen 325 Mg Tab) 650 mg PO Q4H PRN PRN Reason: Pain or Fever Stop: 07/17/23 19:36 Last Admin: 06/18/23 17:42 Dose: 650 mg Albuterol (Albut/Ipratrop 3mg/0.5mg Neb 3 Ml Vial) 3 ml NEB QIDR JESSENIA; Protocol Stop: 07/17/23 19:59 Last Admin: 06/20/23 11:05 Dose: 3 ml Atorvastatin Calcium (Atorvastatin 40 Mg Tab) 40 mg PO HS [facility] Stop: 07/17/23 20:59 Last Admin: 06/19/23 20:56 Dose: 40 mg Benzonatate (Benzonatate 100 Mg Capsule) 100 mg PO TID PRN PRN Reason: cough Stop: 07/17/23 19:36 Last Admin: 06/18/23 05:41 Dose: 100 mg Bupropion HCl (Bupropion Xl 150 Mg Tabcr) 150 mg PO QAM [facility] Stop: 07/17/23 19:59 Last Admin: 06/20/23 08:50 Dose: 150 mg Celecoxib (Celecoxib 100 Mg Cap) 100 mg PO DAILY [facility] Stop: 07/18/23 08:59 Last Admin: 06/20/23 08:50 Dose: 100 mg Dextrose (Dextrose 50% 50 Ml Syringe) 25 - 50 ml IV UD PRN; Protocol PRN Reason: Hypoglycemia Protocol Stop: 07/17/23 19:36 Duloxetine HCl (Duloxetine Hcl 60 Mg Cap) 60 mg PO QAM JESSENIA Stop: 07/17/23 19:59 Last Admin: 06/20/23 08:49 Dose: 60 mg Enoxaparin Sodium (Enoxaparin Inj 40 Mg/0.4 Ml Syr) 40 mg SQ Q24H JESSENIA Stop: 07/17/23 19:59 Last Admin: 06/19/23 20:55 Dose: 40 mg Fluticasone Furoate (Fluticasone Furoate 200mcg 14 Puffs/Inhaler) 1 puffs INH DAILY JESSENIA Stop: 07/18/23 08:59 Last Admin: 06/20/23 08:49 Dose: 1 puffs Gabapentin (Gabapentin 800 Mg Tab) 800 mg PO TID JESSENIA Stop: 07/17/23 20:59 Last Admin: 06/20/23 08:49 Dose: 800 mg Glucagon (Glucagon For Inj 1 Mg Vial) 1 mg SQ UD PRN; Protocol PRN Reason: Hypoglycemia Protocol Stop: 07/17/23 19:36 Glucose (Glucose 10 Tab/Tube) 4 - 8 tab PO UD PRN; Protocol PRN Reason: Hypoglycemia Treatment Stop: 07/17/23 19:36 Glucose (Glucose 40% Gel 15 Gm Tube) 15 - 30 gm PO UD PRN; Protocol PRN Reason: Hypoglycemia Protocol Stop: 07/17/23 19:36 Guaifenesin (Guaifenesin 600 Mg Tabcr) 1,200 mg PO Q12 JESSENIA Stop: 07/17/23 20:59 Last Admin: 06/20/23 08:50 Dose: 1,200 mg Insulin Aspart (Insulin Aspart Per Unit Charge) 0 units SC ACHS JESSENIA Stop: 07/17/23 20:59 Last Admin: 06/20/23 08:55 Dose: 3 units Lisinopril (Lisinopril 2.5 Mg Tab) 2.5 mg PO DAILY JESSENIA Stop: 07/18/23 08:59 Last Admin: 06/20/23 08:50 Dose: 2.5 mg Miscellaneous (Carbohydrates For Hypoglycemia ) 15 - 30 gm PO UD PRN PRN Reason: Hypoglycemia Protocol Stop: 07/17/23 19:36 Ondansetron HCl (Ondansetron Inj 2 Mg/Ml 2 Ml Vial) 4 mg IV Q6H PRN PRN Reason: Nausea Stop: 07/17/23 19:36 Oseltamivir Phosphate (Oseltamivir Phosphate 75 Mg Cap) 75 mg PO BID [facility]; Protocol Stop: 06/23/23 20:59 Last Admin: 06/20/23 08:50 Dose: 75 mg Pantoprazole Sodium (Pantoprazole 40 Mg Tab) 40 mg PO QAM [facility] Stop: 07/17/23 19:59 Last Admin: 06/20/23 08:49 Dose: 40 mg Polyethylene Glycol (Polyethylene (Miralax) 17 Gm Pack) 17 gm PO DAILY PRN PRN Reason: Constipation Stop: 07/17/23 19:36 Potassium Chloride (Potassium Chloride Pwd 20 Meq Pack) [address] [facility] Stop: 07/17/23 13:14 Last Admin: 06/20/23 08:49 Dose: 20 meq Prednisone (Prednisone 20 Mg Tab) 40 mg PO DAILY [facility] Stop: 07/18/23 08:59 Last Admin: 06/20/23 08:49 Dose: 40 mg Tramadol HCl (Tramadol Hcl 50 Mg Tablet) 50 mg PO BID PRN PRN Reason: Mod-Sev Pain (Scale 4-10) Stop: 07/17/23 19:36 Last Admin: 06/18/23 21:12 Dose: 50 mg Trazodone HCl (Trazodone Hcl 50 Mg Tab) 50 mg PO HS [facility] Stop: 07/17/23 20:59 Last Admin: 06/19/23 20:56 Dose: 50 mg Umeclidinium/Vilanterol (Umeclidinium/Vilanterol 62.5/25mcg 7 Puffs/Inhaler) 1 puffs INH DAILY [facility] Stop: 07/18/23 08:59 Last Admin: 06/20/23 08:49 Dose: 1 puffs Vitamin D (Cholecalciferol 1,000 Units 25 Mcg Tab) [facility] [place] [place] Stop: 07/18/23 08:59 Last Admin: 06/20/23 08:50 Dose: 1,000 units (15) GERD (gastroesophageal reflux disease) Esophagitis presence: esophagitis presence not specified Qualified Code(s): K21.9 - Gastro-esophageal reflux disease without esophagitis
--- NOTE | 2023-06-20 16:05 | Discharge Summary ---
Date of Service June 20, 2023 Admission HPI Per Admitting Provider Patient is 63 year old female with PMH HTN, HLD, DM II, Crohn's, asthma, COPD, chronic respiratory failure on 2L oxygen, depression, LALO, GERD, chronic pain presented to ER with c/o cough, SOB. History obtained from patient, and outpatient and inpatient chart review. Patient states started feeling sick approximately 10 days ago with cough. Initially cough is productive but is no longer productive. Also with nasal congestion, increased SOB, MANSFIELD. She also reports chest discomfort when moving only. Generalized MANSFIELD. Initially some body aches as well. Feels symptoms are worsening. Describes intermittent sharp abdominal discomfort and nausea for past 5 days. Decreased appetite. One episode of vomiting today in ambulance EMS after reportedly taking aspirin. Also complains couple episodes of diarrhea. Last episode was yesterday. Feels dizzy with standing. She was feeling ill prior to her infusion, however had infliximab infusion 10 days ago. had congestion, cough last week as well after onset of patient however he is clearing his symptoms. Denies fever/chills past couple of days, denies diaphoresis, syncope, vision changes, neck pain, orthopnea, palpitations, hemoptysis, sore throat, choking, otalgia, extremity weakness, extremity edema, rashes, urinary symptoms, melena, hematochezia. Admission Exam Per Admitting Provider On exam, General: Ill appearing. Eyes: PERRL, conjunctivae normal, not pale, anicteric sclerae, EOM intact bilaterally ENMT: Dry oral mucosa Respiratory: Mild tachypnea, on 2L/min NC (home dose), diminished breath sounds, no crackles Cardiovascular: Tachycardic, regular, S1 S2 Gastrointestinal (Abdomen): Abdomen is not distended, soft, non-tender to palpation, no guarding, no palpable hepatosplenomegaly, normal bowel sounds Musculoskeletal: No pedal edema. Small wound dressing on left ramirez (reports dressing is from wound clinic from injury from home oxygen tank) Neurologic: Alert and oriented x 3, No focal weakness, sensation grossly intact Psychiatric: Alert and oriented x 3, euthymic affect Principal Diagnosis COPD exacerbation secondary to influenza A Discharge Exam Lying in bed with minimal shortness of breath Constitutional average body habitus; not ill appearing Eyes PERRL, conjunctivae normal, anicteric sclerae ENMT external ear and nose normal, oropharynx normal Neck trachea midline, no thyromegaly Respiratory no respiratory distress (Minimal respiratory distress) Auscultation: + diminished lung sounds and + wheezes (Little or no wheezing) Cardiovascular Rate/Rhythm: regular rate, regular rhythm and + tachycardic Heart Sounds: normal S1 and normal S2; no murmur Extremities: no edema Gastrointestinal (Abdomen) Inspection/Auscultation: normal bowel sounds; abdomen not distended Percussion/Palpation: abdomen soft; abdomen nontender Neurologic normal touch/pain/proprioception and moves all extremities; no focal motor deficits Psychiatric A+Ox3, euthymic affect Lymphatic no cervical or axillary lymphadenopathy Discharge Data Allergies Allergy/AdvReac Type Severity Reaction Status Date / Time adhesive tape AdvReac Severe TEARS SKIN Verified 06/15/23 08:30 Consultations 06/17/23 13:25 ED Decision to Admit Stat 06/17/23 19:37 Consult Pulmonology Routine Ordered Studies 06/17/23 11:17 CT angio chest PE protocol Stat Hospital Course (1) COPD exacerbation: Patient is 63 year old female with PMH HTN, HLD, DM II, Crohn's, asthma, COPD, chronic respiratory failure on 2L oxygen, depression, LALO, GERD, chronic pain presented to ER with c/o cough, SOB, congestion, nausea, abdominal pain x 10 days. In ER patient afebrile, P: 125, BP: 127/92, R: 22, O2: 98% on 2L via NC Secondary to influenza A virus infection Meets sepsis criteria secondary to influenza A on admission Does not have any pneumonia -procalcitonin has been negative, chest x-ray and CT of the chest are unremarkable Acute viral bronchitis Appreciate pulmonary input and recommendation Will continue nebulized bronchodilator and intravenous Solu-Medrol Antibiotics have been discontinued and will continue with Tamiflu Urine cultures and blood cultures are pending MRSA screen has been negative She received IV fluid in the emergency room and will discontinue Clinically much better today and will continue current medications Duonebs Prednisone 40mg daily Incentive spirometry, flutter valve Mucinex Continue Trelegy Continue home oxygen On Tezspire Q4 weeks. Last was 05/27/23 Pulmonology consult-appreciate input and recommendation Remains stable and complains to have less wheezing and shortness of breath No complaints of shortness of breath or wheezing at rest Clinically much better Advised to ambulate in the hallway and if she feels better she will be discharged home this afternoon Continue home oxygen Other significant medical conditions remain stable Type 2 diabetes LALO Hypertension Hyperlipidemia Crohn's disease-has been receiving Tezspire every 4 weeks-last 1 was 05/27/2023 Recurrent Colonic stricture DVT prophylaxis Subcu Lovenox CODE STATUS Full (2) Influenza A: Will continue with Tamiflu (3) Asthma: (4) Chronic respiratory failure with hypoxia: (5) Sinus tachycardia: Sinus tachycardia Patient clinically appears dehydrated. Also has received multiple albuterol nebs IVF improving after IVF Monitor on telemetry (6) Hypokalemia: K: 3.3 Replace and monitor (7) Hypomagnesemia: Magnesium: 1.5 Replace and monitor (8) Elevated troponin: Troponin: 18-->19 15:54 EKG: poor tracing sinus rhythm, rate 91, nonspecific T wave abnormality per my interpretation (9) DM type 2 (diabetes mellitus, type 2): A1c: 6.4 on 04/05/23 Diet controlled Novolog sliding scale per protocol (10) Hypertension: Continue lisinopril (11) Hyperlipidemia: Continue atorvastatin (12) Chronic low back pain: Continue gabapentin, tramadol prn (13) Crohns disease: On infliximab. Last received 06/08/22 May have immunosuppression on infliximab Will continue Tamiflu (14) Obstructive sleep apnea syndrome: Continue CPAP HS (15) GERD (gastroesophageal reflux disease): Continue PPI (16) Depression: Continue bupropion, duloxetine DVT Prophylaxis Lovenox SQ Full Code as per discussion with pt Follows with Dr Mekhi Reyes for routine care Will be discharged home this afternoon Total Time Total Time Spent Total Time Spent (In Minutes): 45 minutes Discharge Plan Discharge Items Patient Disposition: Home - Self-Care Reason For Visit: SOB Discharge Diagnosis: COPD exacerbation secondary to influenza A Condition on Discharge: Good Activity: Resume your previous activity Non-emergency contact: Primary Care Provider Call non-emergency contact if: you have any medication questions and your symptoms worsen Follow-up/Referrals: Mekhi Reyes MD [Primary Care Provider] - 06/26/23 11:00 am (Date & Time 06/26/2023 11:00 AM Provider Mekhi Reyes DO Department [facility] ) Diet: Carb Consistent or DM2 Addtl Attending Provider Instructions: Please take precautions to avoid falls Take your medications as advised Keep taking oxygen as before Please keep appointments with your PCP Please make an appointment with your outpatient residential sales representative for a follow-up Pending Studies at Discharge: No Stand-Alone Forms: My [facility], Smoking Cessation Medications and DC Order Prescriptions: New benzonatate 100 mg Capsule 100 mg PO TID PRN (Reason: cough) Qty: 30 0RF prednisone 10 mg tablet 10 mg PO DIRECTED Qty: 22 0RF Rx Instructions: 4 p.o. daily for 1 days, 3 p.o. daily for 3 days, 2 p.o. daily for 3 days and then 1 p.o. daily for 3 days oseltamivir [Tamiflu] 75 mg Capsule 75 mg PO BID Qty: 4 0RF Continued pantoprazole [Protonix] 40 mg tablet,delayed release (DR/EC) 40 mg PO QAM Qty: 90 3RF infliximab [Remicade] 100 mg recon soln See Rx Instructions IV Q8WK Qty: 8 8RF Rx Instructions: 10 mg/kg intravenously every 8 weeks; albuterol sulfate 90 mcg/actuation HFA aerosol inhaler 2 puff inhalation Q4H PRN (Reason: Shortness Of Breath Or Wheezing) Qty: 8.5 5RF Trelegy Ellipta 200-62.5-25 mcg blister with device 1 ea INHALATION QAM Qty: 60 4RF (DME) Portable Oxygen Misc See Rx Instructions .MEDSUPPLY Qty: 1 0RF Rx Instructions: Oxygen 2 liters continuous via nasal cannula on exertion with portable concentrator. ANA MARIA 99 Tezspire 210 mg/1.91 mL (110 mg/mL) pen injector 210 mg subcut Q4WK Qty: 1.91 11RF Rx Instructions: Inject 210 mg Subcutaneously every 4 weeks Approved via [employer] from 05/08/23-11/07/23 cholecalciferol (vitamin D3) [Vitamin D3] 1,000 unit Capsule 1,000 unit PO QAM bupropion HCl 150 mg tablet extended release 24 hr 150 mg PO QAM Women's One Daily 18 mg iron-400 mcg-500 mg Ca Tablet 1 tab PO QAM tramadol 50 mg tablet 50 mg PO BID PRN (Reason: Pain) gabapentin 800 mg tablet 800 mg PO TID celecoxib 100 mg capsule 100 mg PO DAILY duloxetine 60 mg capsule,delayed release(DR/EC) 60 mg PO QAM trazodone 50 mg tablet 50 mg PO HS atorvastatin 40 mg tablet 40 mg PO HS lisinopril 2.5 mg tablet 2.5 mg PO DAILY ipratropium-albuterol 0.5 mg-3 mg(2.5 mg base)/3 mL solution for nebulization 3 ml inhalation QID PRN (Reason: Shortness Of Breath Or Wheezing) Discharge Orders: Discharge Order (Routine); Ordered 06/20/23 Ordered By: Jay Agee Admission Data Admit Date/Time: 06/17/23 13:34 Attending Provider: Jay Agee Admit Provider: Louise Esparza I. Primary Care Provider: Mekhi Reyes Other Providers: Louise Esparza I.; Edgar Jordan Other Interventions: Discharge Summary Assessment (RN) Last Done: 06/20/23 15:08
--- NOTE | 2023-06-25 09:10 | Coding Query ---
SEPSIS To promote full compliance with coding requirements relating to patient care, physician participation is requested in all cases of supervisor tubing uncertainty. Please assist us with the question(s) below: In responding to this query, please exercise your independent professional judgement. The fact that a question is asked does not imply that any particular answer is desired or expected. We appreciate your clarification on this issue. The medical record reflects the following clinical findings: Pt adm with Influenza A, CoPD exac and acute bronchitis. DS mentioed SIRS criteria met, procalcitonin negative . Please check below, if known or suspected, wth diagnosis treated during this inpatient stay. Thank you. Dami Paulino, [facility] ____ ( )Bacteremia (Nonspecific laboratory finding of bacteria in the blood) Specify Organism ( ) Present on Admission ( ) Not present on admission ( ) Unable to clinically determine ( ) Septicemia (Systemic disease associated with the presence of pathogenic microorganisms in the blood): Specify Organism ( ) Present on Admission ( ) Not present on admission ( ) Unable to clinically determine ( ) Sepsis Specify Organism Specify Associated Condition/Diagnosis ( ) Present on Admission ( ) Not present on admission ( ) Unable to clinically determine ( ) Severe Sepsis (Sepsis associated with acute organ dysfunction) Specify Organism Specify Associated Condition/Diagnosis ( ) Present on Admission ( ) Not present on admission ( ) Unable to clinically determine ( ) Septic Shock (Severe sepsis with acute circulatory failure, unexplained by other causes) ( ) Present on Admission ( ) Not present on admission ( ) Unable to clinically determine ( ) Other, patient has: MTDD
== END 2023-06-20 17:12 | disposition home or self-care (01) | DRG 872 ==
LOC: ED 09:22 → EDINP 13:34 → SUATTDRO 13:34 → 2W 21:19

== ENCOUNTER 2023-09-23 11:15 | Observation (INO) ==
[2023-09-23 12:44] LABS: Base Excess VBG 5.8 mEq/L; HCO3 VBG 34 mmol/L; Oxygen Saturation VBG < 60.0 %; PCO2 VBG 66 mmHg (38-50); PO2 VBG 27 mmHg; pH VBG 7.32 (7.36-7.41)
[2023-09-23 12:48] LABS: Basophils # (auto) 0.03 K/uL (0.00-0.20); Basophils % (auto) 0.4 %; Eosinophils % (auto) 1.4 %; Hematocrit (blood only) 40.8 % (37.0-47.0); Hemoglobin 12.4 g/dl (12.0-16.0); Immature Granulocytes # (auto) 0.01 K/uL (0.01-0.20); Immature Granulocytes % (auto) 0.1 %; Lymphocytes # (auto) 1.61 K/uL (1.20-3.40); Lymphocytes % (auto) 21.8 %; Mean Corpuscular Hemoglobin 28.2 pg (25.0-34.0); Mean Corpuscular Hgb Conc 30.4 g/dL (32.0-36.0); Mean Corpuscular Volume 92.9 fL (80.0-100.0); Mean Platelet Volume 10.2 fL (9.4-12.4); Monocytes # (auto) 0.48 K/uL (0.11-0.59); Monocytes % (auto) 6.5 %; Neutrophils # (auto) 5.14 K/uL (1.40-6.50); Neutrophils % (auto) 69.8 %; Platelet Count 202 K/uL (130-400); RDW Coefficient of Variation 12.6 % (11.5-14.5); Red Blood Count 4.39 M/uL (4.20-5.40); White Blood Count 7.37 K/ul (4.8-10.8)
[2023-09-23 13:10] LABS: INR 0.9 (0.9-1.1); Partial Thromboplastin Time 29 Seconds (21-31); Prothrombin Time 10.4 Seconds (9.0-12.0)
--- NOTE | 2023-09-23 13:14 | Emergency Department Note ---
Impression & Plan Shortness of breath, Acute exacerbation of chronic obstructive pulmonary disease ED Provider Note HISTORY OF PRESENT ILLNESS: Patient is a 63-year-old female presenting with shortness of breath. Patient reports progressively worsening shortness of breath for the last week. She reports that she ago she was diagnosed with pneumonia and started on prednisone and doxycycline. She reported she finished her treatment 1 week ago. Reports in the last week she has had progressively worsening shortness of breath and a cough productive of white sputum. States that she is also had subjective chills and fevers at home. Denies any recent sick contact exposures. She does wear 2 L nasal cannula at baseline, but reports in the last 24 hours she is increased up to 5 L secondary to her profound shortness of breath. She has an isolated history of DVT back in the 1980s with . She is not currently on any anticoagulation therapy. Denies any history of cardiac stents. She does report some chest pressure when her shortness of breath is at its worst. Reports that today she was unable to walk more than 10 feet before becoming significantly winded and having to sit down. ROS: as above PHYSICAL EXAM: Constitutional: Patient appears in no acute distress. HENT: Head: Normocephalic and atraumatic. Eyes: EOMI, PERRL Mouth/Throat: Mucous membranes moist. Neck: Trachea midline. Neck supple. Cardiovascular: Tachycardic with regular rhythm. No murmurs, rubs or gallops. Intact distal pulses. Pulmonary/Chest: No respiratory distress. Breath sounds clear and equal bilaterally. On 5L NC. Conversationally dyspnea. Expiratory wheezes bilaterally. Abdominal: Abdomen soft, no tenderness, rebound or guarding. Musculoskeletal: No edema, tenderness or deformity noted. Skin: Warm and dry. No rash, erythema, pallor or cyanosis Psychiatric: Appropriate mood and affect for situation. Neurological: Alert and keenly responsive. CN II-XII grossly intact, moving all extremities equally and fully. MDM: - Vitals signs showed tachycardia. - History obtained via patient. History as above. - Chronic conditions affecting care: HTN; HLD; COPD (on 2L NC at baseline); anxiety/depression; DM-2 - Differential diagnoses include, but are not limited to: Congestive heart failure; acute coronary syndrome; COPD/asthma exacerbation; pulmonary edema; pulmonary embolism; pneumonia; pneumothorax; viral syndrome - Order placed for continuous cardiac monitoring. At this time, monitor showed rate of 94 bpm with normal sinus rhythm, per my interpretation. - External medical records reviewed. Family practice visit note dated 09/02/2023 was reviewed. Patient was seen in clinic for 3 days of cough and congestion. She was started on doxycycline 100 mg twice daily for 7 days and prednisone taper. - EKG interpreted by myself showed normal breath sinus rhythm. Rate 97 bpm. QT 352. No acute ischemic changes - Laboratory workup interpreted by myself showed normal WBC; stable electrolytes; normal BNP; slightly elevated troponin (16.1) - VBG showed slight respiratory acidosis with pH of 7.32 and pCO2 of 66. - Patient was able to be titrated down to her 2 L nasal cannula - CXR negative for pneumonia, per my interpretation - Viral respiratory panel negative - Patient given duoneb treatment in ER and 60 mg IV solumedrol (given patient's hx of DM-2) - Symptoms are likely secondary to a COPD exacerbation. However, the patient is profoundly dyspneic with just a few steps in the examination room in the emergency department - Discussion was had with caseworker intake about patient's case and need for admission - Hospitalist consulted for admission - [facility] ASSESSMENT AND PLAN: Diagnosis: Shortness of breath; COPD exacerbation Plan: admit Past Med/Surg History Medical History (Updated 09/23/23 @ 15:58 by Lucia Sheikh MD) Eosinophilic asthma Acute viral bronchitis Elevated IgE level Acute asthma exacerbation Leiomyoma of uterus History of COVID-19 diagnosed 03/17/21 @ [facility]--had difficulty breathing d/t COPD and had to hospitalized with oxygen for 1 week, pt states no lingering symptoms Crohns disease GERD (gastroesophageal reflux disease) DM type 2 (diabetes mellitus, type 2) NIDDM- DIET CONTROLLED Depression Anxiety History of migraine LALO (obstructive sleep apnea) CPAP DVT prophylaxis Asthma COPD (chronic obstructive pulmonary disease) well controlled w/ inhaler daily/prn, has not needed neb in "a while" Chronic low back pain Hyperlipidemia Hypertension Surgical History History of appendectomy S/P colon resection (07/04/21) Laparoscopic Assisted Right Colon Resection - Gildardo Woods MD, FACS 07/04/2021 History of esophagogastroduodenoscopy (EGD) History of tooth extraction History of tubal ligation History of D&C History of appendectomy History of lumbar surgery x 5; hardware present History of colonoscopy last 02/21/21 @ [facility] History of carpal tunnel surgery BL Family History Brother Diabetes Father , in early 60s from AMI Diabetes Myocardial infarction Mother , in her 60s; "natural" causes No problems noted. Other No family history of adverse response to anesthesia Denies family history of Inflammatory bowel disease Social History (Updated 09/16/23 @ 13:38 by Eli Hazel RN) Smoking Status: Former smoker Tobacco Type: Cigarettes Age Started Using Tobacco: 16; Age Quit Using Tobacco: 43; packs per day: 2.5; Second Hand Exposure: No; Do You Dip or Chew Tobacco: No; Hx Alcohol Use: No Hx Substance Use: No Preferred Language: Faroese Communication Ability: Effective Visual Impairment: Limited Hearing Ability: Normal Braille Operator Required: No Beliefs That Will Affect Care: None marital status: Current Living Situation: Spouse and Family Current Living Situation Comment: lives with and grandson current occupational status: retired current occupation: worked at [employer] How many Children do You have: 1 other: lives in [place] Feels Safe at Home: Yes Diet: diabetic Seatbelt Use: always Do you think of yourself as: straight/heterosexual Gender Identity: Female Assistive Devices: CPAP, Nebulizer and Oxygen - Continuous Allergies Allergies Allergy/AdvReac Type Severity Reaction Status Date / Time adhesive tape AdvReac Severe TEARS SKIN Verified 09/23/23 14:57 Home Meds Home Medications Medication Instructions Recorded Confirmed cholecalciferol (vitamin D3) 25 1,000 unit PO QAM 08/25/18 09/23/23 mcg (1,000 unit) capsule (Vitamin D3) bupropion HCl 150 mg 24 hr tablet, 150 mg PO QAM 08/08/20 09/23/23 extended release multivit-iron 18 mg-folic acid 400 1 tab PO QAM 08/08/20 09/23/23 mcg-calcium 500 mg-minerals tablet (Women's One Daily) atorvastatin 40 mg tablet 40 mg PO HS 03/17/21 09/23/23 trazodone 50 mg tablet 50 mg PO HS 03/17/21 09/23/23 celecoxib 100 mg capsule 100 mg PO DAILY 04/04/23 09/23/23 duloxetine 60 mg capsule,delayed 60 mg PO QAM 04/04/23 09/23/23 release gabapentin 800 mg tablet 800 mg PO TID 04/04/23 09/23/23 tramadol 50 mg tablet 50 mg PO BID PRN Pain 04/04/23 09/23/23 ipratropium 0.5 mg-albuterol 3 mg 3 ml inhalation QID PRN Shortness 06/17/23 09/23/23 (2.5 mg base)/3 mL nebulization Of Breath Or Wheezing soln lisinopril 2.5 mg tablet 2.5 mg PO DAILY 06/17/23 09/23/23 Previous Rx's Medication Instructions Recorded pantoprazole 40 mg tablet,delayed 40 mg PO QAM gastritis #90 tabs 06/24/21 release (Protonix) infliximab 100 mg intravenous See Rx Instructions IV Q8WK #8 ea 02/04/23 solution (Remicade) Portable Oxygen E0431 #1 ea 05/06/23 albuterol sulfate 90 mcg/actuation 2 puff inhalation Q4H PRN 05/06/23 aerosol inhaler Shortness Of Breath Or Wheezing #8.5 grams fluticasone fur. 200 mcg-umeclid 1 ea inhalation QAM #60 ea 05/06/23 62.5 mcg-vilant 25 mcg inhalat.powder (Trelegy Ellipta) tezepelumab-ekko 210 mg/1.91 mL 210 mg (1.91 mL) subcut Q4WK #1.91 05/14/23 (110 mg/mL) subcutaneous pen mL injector (Tezspire) benzonatate 100 mg capsule 100 mg PO TID PRN cough #30 caps 06/20/23 Results & Data (ED) Vital Signs Vital Signs - 24 hr 09/23/23 11:16 09/23/23 11:16 09/23/23 11:17 Temperature 36.7 C Temperature Source Skin Pulse Rate 82 Pulse Rate [Apical] 84 Respiratory Rate 16 24 Respiratory Effort / Characteristics Labored Blood Pressure 137/86 Blood Pressure [Left Arm] 148/87 H Blood Pressure Mean 103 Blood Pressure Mean [Left Arm] 107 Pulse Oximetry 98 95 Oxygen Delivery Method Room Air Nasal Cannula Nasal Cannula Oxygen Flow Rate 4 5 Sepsis Recent Fever Within 48 Hours No Sepsis New/Unexplained Change in Mental Status No Sepsis Action Taken by Nursing No Action Required 09/23/23 12:32 09/23/23 13:22 Temperature Temperature Source Pulse Rate 94 H Pulse Rate [Apical] Respiratory Rate Respiratory Effort / Characteristics Blood Pressure Blood Pressure [Left Arm] Blood Pressure Mean Blood Pressure Mean [Left Arm] Pulse Oximetry 95 Oxygen Delivery Method Nasal Cannula Oxygen Flow Rate 2 Sepsis Recent Fever Within 48 Hours Sepsis New/Unexplained Change in Mental Status Sepsis Action Taken by Nursing Laboratory Data 09/23/23 12:32 09/23/23 12:32 Lab Results 09/23/23 09/23/23 Range/Units 12:32 13:08 WBC 7.37 (4.8-10.8) K/ul RBC 4.39 (4.20-5.40) M/uL Hgb 12.4 (12.0-16.0) g/dl Hct 40.8 (37.0-47.0) % MCV 92.9 (80.0-100.0) fL MCH 28.2 (25.0-34.0) pg MCHC 30.4 L (32.0-36.0) g/dL RDW Std Deviation 43.0 (36.4-46.3) fL RDW Coeff of Dougie 12.6 (11.5-14.5) % Plt Count 202 (130-400) K/uL MPV 10.2 (9.4-12.4) fL Immature Gran % (Auto) 0.1 % Neut % (Auto) 69.8 % Lymph % (Auto) 21.8 % [place]ina % (Auto) 6.5 % Eos % (Auto) 1.4 % Baso % (Auto) 0.4 % Neut # (Auto) 5.14 (1.40-6.50) K/uL Lymph # (Auto) 1.61 (1.20-3.40) K/uL Medina # (Auto) 0.48 (0.11-0.59) K/uL Eos # (Auto) 0.10 (0.00-0.50) K/uL Baso # (Auto) 0.03 (0.00-0.20) K/uL Immature Gran # (Auto) 0.01 (0.01-0.20) K/uL PT 10.4 (9.0-12.0) Seconds INR 0.9 (0.9-1.1) APTT 29 (21-31) Seconds PTT Ratio 1.0 VBG pH 7.32 L (7.36-7.41) VBG pCO2 66 H (38-50) mmHg VBG pO2 27 mmHg VBG HCO3 34 mmol/L VBG O2 Saturation < 60.0 % VBG Base Excess 5.8 mEq/L Sodium 141 (136-145) mmol/L Potassium 4.7 (3.5-5.1) mmol/L Chloride 104 (98-107) mmol/L Carbon Dioxide 33 H (21-32) mmol/L Anion Gap 4 (3-11) BUN 8 (6-23) mg/dl Creatinine 0.96 (0.6-1.2) mg/dl Est Cr Clr Drug Dosing 67.8 ml/min Est GFR ( Amer) 74.0 ml/min Est GFR (Non-Af Amer) 63.8 ml/min BUN/Creatinine Ratio 8.3 L (10-20) Glucose 97 (70-99(Fasting)) mg/dl Calcium 8.8 (8.6-10.3) mg/dl Magnesium 1.9 (1.7-2.4) mg/dl Total Bilirubin 0.4 (0.2-1.0) mg/dl AST 14 (13-39) U/L ALT 10 (7-52) U/L Alkaline Phosphatase 89 (34-104) U/L Troponin I High Sens 16.1 H (0-14) pg/ml B-Natriuretic Peptide 88 (0-100) pg/ml Total Protein 6.5 (6.0-8.3) gm/dl Albumin 3.5 (3.4-5.0) gm/dl Globulin 3.0 (2.5-4.0) gm/dl Albumin/Globulin Ratio 1.2 (0.9-2) Adenovirus (PCR) Not Detected (NotDetected) B. pertussis DNA (PCR) Not Detected (NotDetected) B.parapertussis DNA PCR Not Detected (NotDetected) C. pneumoniae DNA (PCR) Not Detected (NotDetected) Coronavirus OC43 (PCR) Not Detected (NotDetected) Coronavirus HKU1 (PCR) Not Detected (NotDetected) Coronavirus 229E (PCR) Not Detected (NotDetected) SARS-CoV-2 (PCR) Not Detected (NotDetected) Coronavirus NL63 (PCR) Not Detected (NotDetected) Human Metapneumovir PCR Not Detected (NotDetected) Influenza Type A (PCR) Not Detected (NotDetected) Influenza Type B (PCR) Not Detected (NotDetected) M. pneumoniae (PCR) Not Detected (NotDetected) Parainfluenza 1 (PCR) Not Detected (NotDetected) Parainfluenza 2 (PCR) Not Detected (NotDetected) Parainfluenza 3 (PCR) Not Detected (NotDetected) Parainfluenza 4 (PCR) Not Detected (NotDetected) RSV (PCR) Not Detected (NotDetected) Entero/Rhino (PCR) Not Detected (NotDetected) Administered Medications Discontinued Medications Albuterol (Albut/Ipratrop 3mg/0.5mg Neb 3 Ml Vial) 3 ml NEB NOW STA; Protocol Stop: 09/23/23 13:11 Last Admin: 09/23/23 13:16 Dose: 3 ml Documented By: PHILIP Methylprednisolone (Methylprednisolone 125 Mg/2 Ml Vial) 60 mg IV NOW STA Stop: 09/23/23 13:11 Last Admin: 09/23/23 13:15 Dose: 60 mg Documented By: PHILIP Imaging Data Radiologist's Impression: Chest X-Ray 09/23/23 11:19 XR chest 1V portable HISTORY: 63 years-old Female Chest pain, nonspecific COMPARISON: 06/17/2023 TECHNIQUE: AP view of the chest FINDINGS: Cardiomediastinal and hilar silhouettes are unchanged. No pneumothorax, pleural effusion, airspace consolidation or pulmonary edema. Degenerative changes of the shoulders and spine. Pulmonary emphysema. IMPRESSION: Emphysema without acute process. ACT 112: Negative or not required by law. The above report was generated using voice recognition software. It may contain grammatical, syntax or spelling errors. Electronically signed by: Allen Smith M.D. 09/23/2023 1:31 PM Discharge Plan Visit Data Chief Complaint: Shortness of Breath/Dyspnea Stated Complaint: TROUBLE BREATHING, NAUSEA, HEADACHE ED Provider: Lucia Sheikh Discharge Problem: Shortness of breath, Acute exacerbation of chronic obstructive pulmonary disease Forms Stand Alone Forms: My [facility] [employer] Prescriptions Prescriptions: No Action pantoprazole [Protonix] 40 mg tablet,delayed release (DR/EC) 40 mg PO QAM Qty: 90 3RF infliximab [Remicade] 100 mg recon soln See Rx Instructions IV Q8WK Qty: 8 8RF Rx Instructions: DUE OCTOBER 02, 2023. 10 mg/kg intravenously every 8 weeks; albuterol sulfate 90 mcg/actuation HFA aerosol inhaler 2 puff inhalation Q4H PRN (Reason: Shortness Of Breath Or Wheezing) Qty: 8.5 5RF Trelegy Ellipta 200-62.5-25 mcg blister with device 1 ea INHALATION QAM Qty: 60 4RF (DME) Portable Oxygen E0431 Misc See Rx Instructions .MEDSUPPLY Qty: 1 0RF Rx Instructions: Oxygen 2 liters continuous via nasal cannula on exertion with portable concentrator. ANA MARIA 99 Tezspire 210 mg/1.91 mL (110 mg/mL) pen injector 210 mg subcut Q4WK Qty: 1.91 11RF Rx Instructions: Inject 210 mg Subcutaneously every 4 weeks Approved via [employer] from 05/08/23-11/07/23 cholecalciferol (vitamin D3) [Vitamin D3] 1,000 unit Capsule 1,000 unit PO QAM bupropion HCl 150 mg tablet extended release 24 hr 150 mg PO QAM Women's One Daily 18 mg iron-400 mcg-500 mg Ca Tablet 1 tab PO QAM tramadol 50 mg tablet 50 mg PO BID PRN (Reason: Pain) gabapentin 800 mg tablet 800 mg PO TID celecoxib 100 mg capsule 100 mg PO DAILY duloxetine 60 mg capsule,delayed release(DR/EC) 60 mg PO QAM trazodone 50 mg tablet 50 mg PO HS atorvastatin 40 mg tablet 40 mg PO HS lisinopril 2.5 mg tablet 2.5 mg PO DAILY ipratropium-albuterol 0.5 mg-3 mg(2.5 mg base)/3 mL solution for nebulization 3 ml inhalation QID PRN (Reason: Shortness Of Breath Or Wheezing) benzonatate 100 mg Capsule 100 mg PO TID PRN (Reason: cough) Qty: 30 0RF Referrals Referrals: Mekhi Reyes MD [Primary Care Provider] -
[2023-09-23] MEDS: methylPREDNISolone 125 MG/2 ML VIAL IV STA (13:15)
[2023-09-23] MEDS: ALBUT/IPRATROP 3MG/0.5MG NEB 3 ML VIAL NEB STA (13:16)
[2023-09-23 13:31] LABS: Albumin Level 3.5 gm/dl (3.4-5.0); Bilirubin,Total 0.4 mg/dl (0.2-1.0); Calcium 8.8 mg/dl (8.6-10.3); Potassium 4.7 mmol/L (3.5-5.1)
--- NOTE | 2023-09-23 13:32 | XRay Report ---
XR chest 1V portable HISTORY: 63 years-old Female Chest pain, nonspecific COMPARISON: 06/17/2023 TECHNIQUE: AP view of the chest FINDINGS: Cardiomediastinal and hilar silhouettes are unchanged. No pneumothorax, pleural effusion, airspace co nsolidation or pulmonary edema. Degenerative changes of the shoulders and spine. Pulmonary emphysema. IMPRESSION: Emphysema without acute process. ACT 112: Negative or not required by law. The above report was generated using voice recognition software. It may contain grammatical, syntax o r spelling errors. Electronically signed by: Allen Smith M.D. 09/23/2023 1:31 PM
[2023-09-23 13:37] LABS: Albumin Globulin Ratio 1.2 (0.9-2); BUN Creatinine Ratio 8.3 (10-20); Creatinine Clr Calc Pharmacy 67.8 ml/min; Est GFR (Non-African American) 63.8 ml/min; Total Protein 6.5 gm/dl (6.0-8.3); Troponin I High Sensitivity 16.1 pg/ml (0-14)
[2023-09-23 13:49] LABS: Magnesium 1.9 mg/dl (1.7-2.4)
[2023-09-23 14:32] LABS: Adenovirus PCR Not Detected (NotDetected); Bordetella parapertussis PCR Not Detected (NotDetected); Bordetella pertussis PCR Not Detected (NotDetected); Chlamydia pneumoniae PCR Not Detected (NotDetected); Coronavirus 229E PCR Not Detected (NotDetected); Coronavirus CoV-2 (COVID19)PCR Not Detected (NotDetected); Coronavirus HKU1 PCR Not Detected (NotDetected); Coronavirus NL63 PCR Not Detected (NotDetected); Coronavirus OC43PCR Not Detected (NotDetected); Human Metapneumovirus PCR Not Detected (NotDetected); Influenza A PCR Not Detected (NotDetected); Influenza B PCR Not Detected (NotDetected); Mycoplasma pneumoniae PCR Not Detected (NotDetected); Parainfluenza Virus 1 PCR Not Detected (NotDetected); Parainfluenza Virus 2 PCR Not Detected (NotDetected); Parainfluenza Virus 3 PCR Not Detected (NotDetected); Parainfluenza Virus 4 PCR Not Detected (NotDetected); Respiratory Syncytial VirusPCR Not Detected (NotDetected); Rhinovirus/Enterovirus PCR Not Detected (NotDetected)
--- NOTE | 2023-09-23 15:43 | History & Physical Report ---
Date of Service September 23, 2023 Assessment & Plan (1) Acute exacerbation of chronic obstructive pulmonary disease: (2) Chronic respiratory failure with hypoxia: (3) Eosinophilic asthma: (4) Elevated troponin: (5) DM type 2 (diabetes mellitus, type 2): (6) Hypertension: (7) Hyperlipidemia: (8) Crohns disease: (9) Chronic low back pain: (10) LALO (obstructive sleep apnea): (11) GERD (gastroesophageal reflux disease): (12) Depression: Plan: Acute COPD exacerbation Eosinophilic asthma Chronic hypoxic respiratory failure Patient is 63 year old female with PMH HTN, HLD, diet controlled DM II, Crohn's, asthma, COPD, chronic respiratory failure on 2L oxygen, depression, LALO, GERD, chronic pain presented to ER with c/o SOB x 3 weeks. Treated outpatient 09/02/2023 with doxycycline x 7 days, prednisone taper. 09/02/2023 CXR: Without acute findings. Still with SOB and wheezing, no further fevers. In ER afebrile, on chronic 2 L via nasal cannula with oxygen sats 95%. No leukocytosis. Negative respiratory panel. Lactate: WNL. procalcitonin: 0.02 CXR: Emphysema changes, no acute infiltrate In ER was given albuterol neb, Solu-Medrol 60 mg IV Will hold on antibiotics with low procalcitonin level as CXR without infiltrate and recently completed course of doxycycline Duonebs Solumedrol 40mg IV Q8H for now, plan to transition to oral prednisone when able Incentive spirometry, flutter valve Continue Trelegy Continue home oxygen, 2L via NC On Tezspire Q4 weeks. Last was 09/16/23 Pulmonology consult CBC, BMP in am Elevated troponin: Troponin: 16 EKG: sinus rhythm, no significant ST changes noted Chronic elevated troponin Repeat troponin now EKG in am DM type 2 (diabetes mellitus, type 2): A1c: 6.4 on 07/07/23 Diet controlled Monitor glucose Hypertension: Stable Continue lisinopril Hyperlipidemia: Continue atorvastatin Chronic low back pain: Continue gabapentin, tramadol prn Crohn's disease: On infliximab Q8 weeks. Next dose scheduled for 10/02/23 Obstructive sleep apnea syndrome: Continue CPAP HS GERD (gastroesophageal reflux disease): Continue PPI Depression: Continue bupropion, duloxetine DVT Prophylaxis Lovenox SQ Full Code as per discussion with pt Follows with Dr Mekhi Reyes for routine care Pt was seen and care coordinated with Dr Bowman. See addendum I spent a total of 78 minutes reviewing notes, outpatient records, labs, medication, coordinating, documenting and providing care for this patient excluding time spent in the performance of separately billed services. History of Present Illness Chief Complaint: SOB Primary Care Provider: Mekhi Reyes MD Patient is 63 year old female with PMH HTN, HLD, diet controlled DM II, Crohn's, asthma, COPD, chronic respiratory failure on 2L oxygen, depression, LALO, GERD, chronic pain presented to ER with c/o SOB x 3 weeks. History obtained from patient, outpatient and inpatient chart review. Patient states beginning of August 2023 she started with fever, cough, congestion, sore throat. Was seen outpatient 09/02/2023 and was treated with doxycycline x 7 days, prednisone taper for possible pneumonia. 09/02/2023 CXR: Without acute findings. Patient states finished doxycycline and prednisone. She reports fevers have resolved and has not had any recurrent fever however continues with cough and shortness of breath. Still with cough productive yellow and still with SOB and wheezing. Typically uses nebs twice day but past couple of weeks using 4 times daily for wheezing with limited relief. Reports intermittent chest tightness. Today increased SOB and turned her home O2 up to 5L on her way in to ER today. Patient states some nausea, vomited once today but states is feeling improved now. Denies abdominal pain. Denies known ill contacts. Denies hematemesis, diarrhea, constipation, [place], dizziness, syncope, vision changes, neck pain, palpitations, hemoptysis, sore throat, choking, abdominal pain, paresthesias, weakness, extremity weakness, extremity edema, rashes, urinary symptoms. Allergies Allergy/AdvReac Type Severity Reaction Status Date / Time adhesive tape AdvReac Severe TEARS SKIN Verified 09/23/23 14:57 Home Medications Medication Instructions Recorded Confirmed Type cholecalciferol (vitamin D3) 25 1,000 unit PO QAM 08/25/18 09/23/23 History mcg (1,000 unit) capsule (Vitamin D3) bupropion HCl 150 mg 24 hr tablet, 150 mg PO QAM 08/08/20 09/23/23 History extended release multivit-iron 18 mg-folic acid 400 1 tab PO QAM 08/08/20 09/23/23 History mcg-calcium 500 mg-minerals tablet (Women's One Daily) atorvastatin 40 mg tablet 40 mg PO HS 03/17/21 09/23/23 History trazodone 50 mg tablet 50 mg PO HS 03/17/21 09/23/23 History pantoprazole 40 mg tablet,delayed 40 mg PO QAM gastritis #90 tabs 06/24/21 09/23/23 Rx release (Protonix) infliximab 100 mg intravenous See Rx Instructions IV Q8WK #8 ea 02/04/23 09/23/23 Rx solution (Remicade) celecoxib 100 mg capsule 100 mg PO DAILY 04/04/23 09/23/23 History duloxetine 60 mg capsule,delayed 60 mg PO QAM 04/04/23 09/23/23 History release gabapentin 800 mg tablet 800 mg PO TID 04/04/23 09/23/23 History tramadol 50 mg tablet 50 mg PO BID PRN Pain 04/04/23 09/23/23 History Portable Oxygen E0431 #1 ea 05/06/23 09/23/23 Rx albuterol sulfate 90 mcg/actuation 2 puff inhalation Q4H PRN 05/06/23 09/23/23 Rx aerosol inhaler Shortness Of Breath Or Wheezing #8.5 grams fluticasone fur. 200 mcg-umeclid 1 ea inhalation QAM #60 ea 05/06/23 09/23/23 Rx 62.5 mcg-vilant 25 mcg inhalat.powder (Trelegy Ellipta) tezepelumab-ekko 210 mg/1.91 mL 210 mg (1.91 mL) subcut Q4WK #1.91 05/14/23 09/23/23 Rx (110 mg/mL) subcutaneous pen mL injector (Tezspire) ipratropium 0.5 mg-albuterol 3 mg 3 ml inhalation QID PRN Shortness 06/17/23 09/23/23 History (2.5 mg base)/3 mL nebulization Of Breath Or Wheezing soln lisinopril 2.5 mg tablet 2.5 mg PO DAILY 06/17/23 09/23/23 History benzonatate 100 mg capsule 100 mg PO TID PRN cough #30 caps 06/20/23 09/23/23 Rx Past Med/Surg History Medical History Eosinophilic asthma Acute viral bronchitis Elevated IgE level Acute asthma exacerbation Leiomyoma of uterus History of COVID-19 diagnosed 03/17/21 @ [facility]--had difficulty breathing d/t COPD and had to hospitalized with oxygen for 1 week, pt states no lingering symptoms Crohns disease GERD (gastroesophageal reflux disease) DM type 2 (diabetes mellitus, type 2) NIDDM- DIET CONTROLLED Depression Anxiety History of migraine LALO (obstructive sleep apnea) CPAP DVT prophylaxis Asthma COPD (chronic obstructive pulmonary disease) well controlled w/ inhaler daily/prn, has not needed neb in "a while" Chronic low back pain Hyperlipidemia Hypertension Surgical History History of appendectomy S/P colon resection (07/04/21) Laparoscopic Assisted Right Colon Resection - Gildardo Woods MD, FACS 07/04/2021 History of esophagogastroduodenoscopy (EGD) History of tooth extraction History of tubal ligation History of D&C History of appendectomy History of lumbar surgery x 5; hardware present History of colonoscopy last 02/21/21 @ [facility] History of carpal tunnel surgery BL Family History Brother Diabetes Father , in early 60s from AMI Diabetes Myocardial infarction Mother , in her 60s; "natural" causes No problems noted. Other No family history of adverse response to anesthesia Denies family history of Inflammatory bowel disease Social History Smoking Status: Former smoker Tobacco Type: Cigarettes Age Started Using Tobacco: 16; Age Quit Using Tobacco: 43; packs per day: 2.5; Second Hand Exposure: No; Do You Dip or Chew Tobacco: No; Hx Alcohol Use: No Hx Substance Use: No Preferred Language: Estonian Communication Ability: Effective Visual Impairment: Limited Hearing Ability: Normal Financing Analyst Required: No Beliefs That Will Affect Care: None marital status: Current Living Situation: Spouse and Family Current Living Situation Comment: lives with and grandson current occupational status: retired current occupation: worked at [employer] How many Children do You have: 1 Other Information That Helps Us Care for You: No other: lives in [place] Feels Safe at Home: Yes Safety Concerns: Feels Safe At This Time Diet: diabetic Seatbelt Use: always Do you think of yourself as: straight/heterosexual Gender Identity: Female Assistive Devices: CPAP, Denture - Upper, Denture - Lower, Glasses, Nebulizer and Oxygen - Continuous Review of Systems Review of Systems: All systems reviewed & are unremarkable except as noted in HPI & below Physical Exam Physical Exam: General: no distress, WDWN Head: normocephalic, atraumatic Eyes: conjunctiva non-injected, anicteric ENT: normal inspection external ears, nose, mucous membranes moist Neck: supple, trachea midline Lungs: no respiratory distress on current 2L O2 via NC, diminished breath sounds with scattered wheezing throughout no rhonchi/rales noted CV: RRR, no murmur, no pretibial edema Abd: normal BS, soft, non-tender Ext: no cyanosis, no calf tenderness Neuro: A&O x 3, no focal deficits noted, normal affect Skin: warm, dry Results & Data Results & Data Vital Signs (Past 12 Hours) Vital Signs Temp Pulse Pulse Resp BP BP Pulse Ox 09/23/23 13:22 95 09/23/23 12:32 94 H 09/23/23 11:17 36.7 C 82 24 137/86 95 09/23/23 11:16 84 16 148/87 H 98 09/23/23 11:16 O2 Del Method O2 Flow Rate 09/23/23 13:22 Nasal Cannula 2 09/23/23 12:32 09/23/23 11:17 Nasal Cannula 5 09/23/23 11:16 Nasal Cannula 4 09/23/23 11:16 Room Air Laboratory Results Short CBC 09/23/23 Range/Units 12:32 WBC 7.37 (4.8-10.8) K/ul Hgb 12.4 (12.0-16.0) g/dl Hct 40.8 (37.0-47.0) % Plt Count 202 (130-400) K/uL BMP 09/23/23 12:32 Sodium 141 Potassium 4.7 Chloride 104 Carbon Dioxide 33 H BUN 8 Creatinine 0.96 Glucose 97 Calcium 8.8 Liver Function 09/23/23 Range/Units 12:32 Total Bilirubin 0.4 (0.2-1.0) mg/dl AST 14 (13-39) U/L ALT 10 (7-52) U/L Alkaline Phosphatase 89 (34-104) U/L Albumin 3.5 (3.4-5.0) gm/dl Diagnostic Findings Chest X-Ray 09/23/23 11:19 XR chest 1V portable HISTORY: 63 years-old Female Chest pain, nonspecific COMPARISON: 06/17/2023 TECHNIQUE: AP view of the chest FINDINGS: Cardiomediastinal and hilar silhouettes are unchanged. No pneumothorax, pleural effusion, airspace consolidation or pulmonary edema. Degenerative changes of the shoulders and spine. Pulmonary emphysema. IMPRESSION: Emphysema without acute process. ACT 112: Negative or not required by law. The above report was generated using voice recognition software. It may contain grammatical, syntax or spelling errors. Electronically signed by: Allen Smith M.D. 09/23/2023 1:31 PM Supervising Physician Co-Signing Physician Notes Pt was seen and examined by myself, Shyla Bowman MD on the day of service. Care was coordinated with Marlen Lorenzo PA-C. Pt is a 63yoF with PMHx significant for COPD presenting with acute hypoxic and hypercapnic respiratory failure. On exam, AAOx3 Breath sounds with wheezing noted, no acute distress on exam Chest XR noting emphysema Biofire negative VBG noting pH 7.32, pCO2 66, HCO3 34 IV Steroids, pulmonology consult (pt known to the pulm service), appreciate recs Otherwise as above. I spent a total [id number] coordinating, documenting, and providing care for this patient excluding time spent in the performance of separately billed services (11) GERD (gastroesophageal reflux disease) Esophagitis presence: esophagitis presence not specified Qualified Code(s): K21.9 - Gastro-esophageal reflux disease without esophagitis
--- NOTE | 2023-09-23 16:33 | Electrocardiogram Report ---
Test Reason : Blood Pressure : / mmHG Vent. Rate : 097 BPM Atrial Rate : 097 BPM P-R Int : 138 ms QRS Dur : 066 ms QT Int : 352 ms P-R-T Axes : 086 078 078 degrees QTc Int : 447 ms Normal sinus rhythm Normal ECG When compared with ECG of 18-JUN-2023 05:45, No significant change was found Confirmed by Royce Mckeon ([id number]) on 09/23/2023 4:33:13 PM Referred By: Confirmed By:Royce Mckeon
[2023-09-23] MEDS: ACETAMINOPHEN 325 MG TAB PO PRN (17:17)
[2023-09-23] MEDS ORDERED: ONDANSETRON INJ 2 MG/ML 2 ML VIAL IV PRN (18:10)
[2023-09-23] MEDS ORDERED: traMADol HCL 50 MG TABLET PO PRN (18:10)
[2023-09-23] MEDS ORDERED: methylPREDNISolone 10 mg/mL (For Ped Dose < 7mg) IV SCH (18:10)
[2023-09-23] MEDS ORDERED: POLYETHYLENE (MIRALAX) 17 GM PACK PO PRN (18:10)
[2023-09-23] MEDS: ENOXAPARIN INJ 40 MG/0.4 ML SYR SQ SCH (19:21)
[2023-09-23] MEDS: ALBUT/IPRATROP 3MG/0.5MG NEB 3 ML VIAL NEB SCH (19:21)
[2023-09-23] MEDS: traZODone HCL 50 MG TAB PO SCH (21:01)
[2023-09-23] MEDS: GABAPENTIN 800 MG TAB PO SCH (21:01)
[2023-09-23] MEDS: ATORVASTATIN 40 MG TAB PO SCH (22:16)
[2023-09-23] MEDS: methylPREDNISolone 40 MG in SYRINGE 0 ML IV SCH (22:16)
[2023-09-23] MEDS ORDERED: ALBUT/IPRATROP 3MG/0.5MG NEB 3 ML VIAL NEB PRN (22:43)
--- OUTSIDE RECORDS SUMMARY | 2023-09-24 04:37 | External Medical Summary | Summary of Care ---
Author Name Unknown Organization [facility] Address [address] [place] [address] Phone [phone] Care Team Providers Care Manager Studio Name Role Phone Mekhi Reyes Primary Care Provid er Reason for Visit * Reason Onset Date Comments Films 09/07/2023 Encounter Details Date Type Department Care Team (Late st Contact Info) Description 09/07/2023 Telephone Radiology Film File [address], [place] [id number] Erica Magana PA-C [address] [place] [id number] Films Allergies Active Allergy Reactions Criticality Noted Date Comments Adhesive Tape High 01/09/2023 Other Reaction(s): TEARS SKIN documented as of this encounter (statuses as of 09/07/2023) Medications Medication Sig Dispensed Refills Start Date End Date Status Vitamin D3 1.25 MG (89889 UT) Oral Capsule Take 1 Capsule by [...] 8 weeks. 1 Each 0 01/27/2022 Active Atorvastatin Calcium 40 MG Oral Tablet [...] at bedtime. 90 Tablet 3 11/18/2022 Active Albuterol Sulfate HFA 108 (90 Base) MCG/ACT Inhalation Aerosol SolutionIndications :COPD exacerbation ([facility]) Inhale 2 Puffs by mouth every 6 hours as needed for Shortness of Breath or Wheezing. 8.5 g 5 12/16/2022 Active Spacer/Aero-Holding Chambers Device Use with inhaler. 1 Each 0 12/16/2022 Active CPAP every night at bedtime. 0 Active Trelegy Ellipta 200-62.5-25 MCG/ACT Aerosol Powder Breath Activated (Fluticasone-Umecli dinium-Vilanterol)I ndications:COPD, group D, by GOLD 2017 classification ([facility]) Inhale 1 Puff by mouth daily. 60 Blister Dosing Unit 5 03/17/2023 Active Celecoxib 100 MG Oral Capsule (CeleBREX) Take 1 capsule by mouth in the morning for pain. 90 Capsule 1 04/02/2023 Active Acetaminophen 325 MG Oral Capsule Take 2 Capsules by mouth. 0 05/05/2022 Active traMADol HCl 50 MG Oral Tablet (Ultram)Indications :DDD (degenerative disc disease), lumbar,Chronic pain syndrome Take 1 Tablet by mouth 2 times a day as needed for Pain, Severe. 60 Tablet 3 05/03/2023 Active Silver sulfADIAZINE 1 % External Cream (Silvadene) Apply topically to affected area daily. Apply to burn. 400 g 1 05/14/2023 Active Additional Information Patient not taking.Reported on 07/27/2023 Tezepelumab-ekko 210 MG/1.91ML Subcutaneous Solution Auto-injector Inject 1.91 mL under the skin every 4 weeks. 0 Active Lisinopril 2.5 MG Oral Tablet (Prinivil) Take 1 Tablet by mouth in the morning. 30 Tablet 11 05/21/2023 Active Benzonatate 100 MG Oral Capsule (Tessalon Perles)Indications: Sinobronchitis Take 1 Capsule by mouth 3 times a day as needed for Cough. Do not cut, crush, or chew. 50 Capsule 1 07/27/2023 Active Ondansetron HCl 4 MG Oral Tablet Take 1 Tablet by mouth every 6 hours as needed for Nausea. 30 Tablet 0 08/11/2023 Active Doxycycline Hyclate 100 MG Oral CapsuleIndications: Sinobronchitis Take 1 Capsule by mouth in the morning and 1 Capsule before bedtime. Take for 7 days. 20 Capsule 0 09/02/2023 Active predniSONE 20 MG Oral Tablet (Deltasone)Indicati ons:Sinobronchitis Take 3 tabs for 3 days, 2 tabs for 3 days, 1 tab for 3 days, 1/2 tab for 3 days 20 Tablet 0 09/02/2023 Active Hospital, Clinic, or Other Facility Administered Medication Ordered Dose Route Frequency Start Date End Date Status Albuterol Sulfate (Proventil) (2.5 MG/3ML) 0.083% inhalation solution 2.5 mgIndications:Screening for respiratory condition 2.5 mg NEBULIZER ONCE PRN 04/01/2022 Active Albuterol Sulfate (Proventil) (2.5 MG/3ML) 0.083% inhalation solution 2.5 mgIndications:COPD, group D, by GOLD 2017 classification (HCC),Interstitial pulmonary disease (HCC),Shortness of breath 2.5 mg NEBULIZER ONCE PRN 2023 04/02/2024 Active documented as of this encounter (statuses as of 09/07/2023) Active Problems Problem Noted Date Diagnosed Date LALO and COPD overlap syndrome 07/07/2023 Chronic hypoxemic respiratory failure 07/07/2023 Leiomyoma of uterus 11/18/2022 Leukocytosis 11/18/2022 Ovarian [...] as of this encounter (statuses as of 09/07/2023) Resolved Problems Problem Noted Date Diagnosed Date Resolved Date Colonic stricture 11/18/2022 04/14/2023 TERMINATED MEDICATION USAGE AGREEMENT 02/17/2022 07/18/2022 Chronic [...] as of this encounter (statuses as of 09/07/2023) Immunizations Name Administration Dates Next Due COVID-19 mRNA, LNP-s, No Pre serve, 2-Dose Series ([employer]) 05/15/2021,09/12/2020,08/22/2020 Hepatitis B, 20+ yrs 11/19/2021,05/20/20 21(Deferred: Contraindication),11/13/2020 12/13/2020 Pneumococcal Conjugate Vacc, 13 Valent (Prevnar) 04/20/2018 Pneumococcal Conjugate Vacci ne, 20-valent ([id number]) 01/27/2022 Seasonal Influenza Virus Vac cine, Unspecified Formulation 04/21/2020,02/08/2019,03/04/2018,02/04 Seasonal Influenza, PF, 6 M & above, IM , (FluLaval or Fluzone) 03/17/2023 Seasonal Influenza, Quadriva lent, No Preserve, IM 03/01/2020 Seasonal Influenza, Quadriva lent, No Preserve, Mdck 03/01/2017 Zoster Vaccine Recombinant (Shingrix) 07/18/2022,01/27/2022 07/29/2022 documented as of this encounter Social History Tobacco Use Types Packs/Day Years Used Date Smoking Tobacco: Former Cigarettes 2 38 1 976 - 2004 Smokeless Tobacco: Never Alcohol Use Standard Drinks/Week Comments No 0 (1 standard drink = 0.6 oz pur e alcohol) PHQ-2 Answer Date Recorded PHQ Adult Total Score 2 2023 Hunger Vital Sign Answer Date Recorded Within the past 12 months, y ou worried that your food would run out before you got the money to buy more. Never true 07/07/19 24 Within the past 12 months, t he food you bought just didn't last and you didn't have money to get more. Never true 07/07/2023 Sex and Gender Information Value Date Recorded Sex Assigned at Female 08/23/2020 8:55 AM EDT Gender Identity Female 08/23/2020 8:55 AM EDT Sexual Orientation Straight 08/23/2020 8: 55 AM EDT Job Start Date Occupation Industry Not on file Not on file Not on file documented as of this encounter Miscellaneous Notes * Telephone Encounter - Aleksandra Arcos OSA - 09/07/2023 4:51 PM EDT Susana from [facility] Pulmonary Medicine department requesting 05/08/23 CT and 07/07/23 and 09/02/23 Chest Xray images be pushed through PACS. [place] Authorization to Release on file. Images pushed to [facility] PACS. documented in this encounter Plan of Treatment Upcoming Encounters Date Type Department Care Team ([facility] st Contact Info) Description 10/23/2023 8:40 AM EDT Office Visit [address] [phone] Mekhi Reyes, DO [address] [place] [address] Health Maintenance Due Date Last Done Comments DTaP,Tdap,and Td Vaccines (1 - Tdap) 1981 HPV/Co-Test 1992 Cologuard 2007 Fecal Occult Blood Test 2007 Sigmoidoscopy 2007 *COPD SEVERITY VERIFIED BY PFT 09/05/2020 Hepatitis B (3 of 3 - 19+ 3-dose series) 01/14/2022 11/19/2021, 11/13/2020 COVID-19 Vaccine (2022- season) 2023 05/15/2021, 09/12/2020, 08/22/2020 Diabetic Eye Exam 07/18/2023 07/18/2022, , 04/04/2022, Additional history exists Mammogram 07/29/2023 07/29/2022, 04/0 07/2020, 08/30/2020, Additional history exists Diabetic Foot Exam 11/19/2023 11/18/2022, 0 11/19/2021, 09/13/2020 Cervical Cancer Screening 12/19/2023 Pap Smear 12/19/2023 12/18/2020 HbA1c 01/05/2024 07/07/2023, 01/01, 09/26/2021, Additional history exists Depression Screening 2024 2023 Albumin/Creatinine Ratio 07/07/2024 07/07/2023, 2 09/2020 GFR 07/07/2024 07/07/2023, 05/0 06/2022, 07/01/2022, Additional history exists O2 ASSESSMENT COMPLETED IN PAST YEAR FOR COPD 09/01/2024 09/02/2023 Lipid Panel 07/07/2028 07/07/2023, 08/3 , 09/26/2021, Additional history exists Colonoscopy 07/10/2032 07/10/2022, 01/31, 09/10/2020 Colorectal Cancer Screening 07/10/2032 Alpha-1 Antitrypsin [...] filedocumented as of this encounter Care Teams Manager Studio Relationship Specialty Start Date End Date Mekhi Reyes DO [address] [place] [id number] PCP - General Internal Medicine 12/10/22 documented as of this encounter
--- OUTSIDE RECORDS SUMMARY | 2023-09-24 04:37 | External Medical Summary | Summary of Care ---
Author Name Unknown Organization [facility] Address [address] [place] [address] Phone [phone] Care Team Providers Care Ground Crew Lines Person Name Role Phone Mekhi Reyes Primary Care Provid er Reason for Visit * Reason Comments Acute Pt has a sore throat , sinus drainage, she has a cough. She has a fever. Sx started 3 days ago. Encounter Details Date Type Department Care Team (Late st Contact Info) Description 09/02/2023 10:00 AM EDT Office Visit [address] [phone] Erica Magana PA-C [address] [place] [address] Sinobronchitis* Allergies Active Allergy Reactions Criticality Noted Date Comments Adhesive Tape High 01/09/2023 Other Reaction(s): TEARS SKIN documented as of this encounter (statuses as of 09/02/2023) Medications Medication Sig Dispensed Refills Start Date End Date Status Vitamin D3 1.25 MG (47878 UT) Oral Capsule Take 1 Capsule by [...] at bedtime. 90 Tablet 3 3 Active Albuterol Sulfate HFA 108 (90 Base) MCG/ACT Inhalation Aerosol SolutionIndications :COPD exacerbation ([facility]) Inhale 2 Puffs by mouth every 6 hours as needed for Shortness of Breath or Wheezing. 8.5 g 5 3 Active Spacer/Aero-Holding Chambers Device Use with inhaler. 1 Each 0 3 Active CPAP every night at bedtime. 0 Active Trelegy Ellipta 200-62.5-25 MCG/ACT Aerosol Powder Breath Activated (Fluticasone-Umecli dinium-Vilanterol)I ndications:COPD, group D, by GOLD 2017 classification ([facility]) Inhale 1 Puff by mouth daily. 60 Blister Dosing Unit 5 3 Active Celecoxib 100 MG Oral Capsule (CeleBREX) Take 1 capsule by mouth in the morning for pain. 90 Capsule 1 3 Active Acetaminophen 325 MG Oral Capsule Take 2 Capsules by mouth. 0 2 Active traMADol HCl 50 MG Oral Tablet (Ultram)Indications :DDD (degenerative disc disease), lumbar,Chronic pain syndrome Take 1 Tablet by mouth 2 times a day as needed for Pain, Severe. 60 Tablet 3 3 Active Silver sulfADIAZINE 1 % External Cream (Silvadene) Apply topically to affected area daily. Apply to burn. 400 g 1 3 Active Additional Information Patient not taking.Reported on 07/27/2023 Tezepelumab-ekko 210 MG/1.91ML Subcutaneous Solution Auto-injector Inject 1.91 mL under the skin every 4 weeks. 0 Active Lisinopril 2.5 MG Oral Tablet (Prinivil) Take 1 Tablet by mouth in the morning. 30 Tablet 11 3 Active Benzonatate 100 MG Oral Capsule (Tessalon Perles)Indications: Sinobronchitis Take 1 Capsule by mouth 3 times a day as needed for Cough. Do not cut, crush, or chew. 50 Capsule 1 4 Active Ondansetron HCl 4 MG Oral Tablet Take 1 Tablet by mouth every 6 hours as needed for Nausea. 30 Tablet 0 4 Active Doxycycline Hyclate 100 MG Oral CapsuleIndications: Sinobronchitis Take 1 Capsule by mouth in the morning and 1 Capsule before bedtime. Take for 7 days. 20 Capsule 0 4 Active predniSONE 20 MG Oral Tablet (Deltasone)Indicati ons:Sinobronchitis Take 3 tabs for 3 days, 2 tabs for 3 days, 1 tab for 3 days, 1/2 tab for 3 days 20 Tablet 0 4 Active Doxycycline Hyclate 100 MG Oral CapsuleIndications: Sinobronchitis Take 1 Capsule by mouth in the morning and 1 Capsule before bedtime. Do all this for 10 days. Take for 7 days. 20 Capsule 0 4 09/02/19 24 Discontinu ed(Refill) predniSONE 20 MG Oral Tablet (Deltasone)Indicati ons:Sinobronchitis Take 3 tabs for 3 days, 2 tabs for 3 days, 1 tab for 3 days, 1/2 tab for 3 days 20 Tablet 0 4 09/02/19 24 Discontinu ed(Refill) Hospital, Clinic, or Other Facility Administered Medication [...] as of this encounter (statuses as of 09/02/2023) Active Problems Problem Noted Date Diagnosed Date [...] as of this encounter (statuses as of 09/02/2023) Resolved Problems Problem Noted Date Diagnosed Date [...] as of this encounter (statuses as of 09/02/2023) Immunizations Name Administration Dates Next Due COVID-19 mRNA, LNP-s, No Pre serve, 2-Dose Series ([employer]) 05/15/2021,09/12/2020,08/22/2020 Hepatitis B, 20+ yrs 11/19/2021,05/20/20 21(Deferred: Contraindication),11/13/2020 12/13/2020 Pneumococcal Conjugate Vacc, 13 Valent (Prevnar) 04/20/2018 Pneumococcal Conjugate Vacci ne, 20-valent ([id number]) 01/27/2022 Seasonal Influenza Virus Vac cine, Unspecified [...] Sign Reading Time Taken Comments Blood Pressure 98/58 09/02/2023 9:56 AM EDT Pulse 119 09/02/2023 9:56 AM EDT Temperature 38.7 C (101.6 F) 09/02/2023 9:56 AM E DT Respiratory Rate 22 09/02/2023 9:56 AM EDT Oxygen Saturation 95% 09/02/2023 9:56 AM EDT Inhaled Oxygen Concentration - - Weight 79.4 kg (175 lb) 09/02/2023 9:56 AM EDT Height - - Body Mass Index 28.25 04/14/2023 9:27 AM EST documented in this encounter Progress Notes * Erica Magana PA-C - 09/02/2023 10:06 AM EDT Images from the original note were not included. History of Present Illness Krystin Jaffe is a 63 year old female that presents to the office regarding congestion and cough for 3 days. Patient stated 3 days ago she started with fever, nasal congestion, right earache, sore throat and cough. Cough is productive of yellow sputum. Fevers as high as 102. Also experiencing increased shortness of breath and wheezing. Developed a sharp stabbing pain left upper back. Patient stated she is concerned she has pneumonia. Using home O2. Denied ear drainage, CP and lower extremity edema. Physical Exam Vitals: 09/02/23 0956 Temp: (!) 38.7 C (101.6 F) Pulse: 119 Resp: 22 SpO2: 95% BP: 98/58 Physical Exam Vitals and nursing note reviewed. Constitutional: General: She is not in acute distress. Appearance: Normal appearance. She is not ill-appearing, toxic-appearing or diaphoretic. HENT: Head: Normocephalic and atraumatic. Nose: Congestion present. Mouth/Throat: Mouth: Mucous membranes are moist. Eyes: General: No scleral icterus. Extraocular Movements: Extraocular movements intact. Conjunctiva/sclera: Conjunctivae normal. Cardiovascular: Rate and Rhythm: Normal rate and regular rhythm. Heart sounds: Normal heart sounds. No murmur heard. Pulmonary: Effort: Pulmonary effort is normal. Breath sounds: No stridor. Wheezing present. No rhonchi or rales. Musculoskeletal: Thoracic back: Tenderness present. Right lower leg: No edema. Left lower leg: No edema. Comments: Tenderness just above left scapula Skin: General: Skin is warm and dry. Coloration: Skin is not pale. Findings: No rash. Neurological: Mental Status: She is alert. I have reviewed the following results: CMP and CBC Assessment and Plan Sinobronchitis - Doxycycline Hyclate 100 MG Oral Capsule; Take 1 Capsule by mouth in the morning and 1 Capsule before bedtime. Take for 7 days. - predniSONE 20 MG Oral Tablet (Deltasone); Take 3 tabs for 3 days, 2 tabs for 3 days, 1 tab for 3 days, 1/2 tab for 3 days - XR CHEST 2 VIEWS Wrap-Up Follow Up: Return if symptoms worsen or fail to improve, for as scheduled, Radiology Today. | For: as scheduled, Radiology Today Time: I spent a total of 20-29 minutes (exact time 20 mins) on the date of service in preparation, delivery, and documentation of the care provided to Krystin Jaffe excluding any time spent in the performance of separately billed services. documented in this encounter Nursing Notes * Akua Gautam MED ASSIST - 09/02/2023 9:58 AM EDT The patient has been properly identified by confirmation of name and date of . Chief Complaint Patient presents with Acute Pt has a sore throat, sinus drainage, she has a cough. She has a fever. Sx started 3 days ago. documented in this encounter Plan of Treatment Upcoming Encounters Date Type Department Care Team ([facility] st Contact Info) Description 10/23/2023 8:40 AM EDT Office Visit [address] [phone] Mekhi Reyes DO [address] [place] [address] Pending Results Name Type Priority Associated Diagnoses Date /Time XR CHEST 2 VIEWS Medical Imaging STAT Sinobronchitis 09/02/2023 10:28 AM EDT Health Maintenance Due Date Last Done Comments DTaP,Tdap,and Td Vaccines (1 - Tdap) 1981 HPV/Co-Test 1992 Cologuard 2007 Fecal Occult Blood Test 2007 Sigmoidoscopy 2007 *COPD SEVERITY VERIFIED BY PFT 09/05/2020 Hepatitis B (3 of 3 - 19+ 3-dose series) 01/14/2022 11/19/2021, 11/13/2020 COVID-19 Vaccine ( - 2022-24 season) 2023 05/15/2021, 09/12/2020, 08/22/2020 Diabetic Eye [...] COPD 09/01/2024 09/02/2023 Lipid Panel 07/07/2028 07/07/2023, 3 , 09/26/2021, Additional history exists Colonoscopy 07/10/2032 [...] as of this encounter Visit Diagnoses Diagnosis Sinobronchitis- Primary Unspecified sinusitis (chronic) documented in this encounter Care Teams Ground Crew Lines Person Relationship Specialty Start Date End Date Mekhi Reyes DO [address] [place] [address] [phone] PCP - General Internal Medicine 12/10/22 documented as of this encounter"
--- OUTSIDE RECORDS SUMMARY | 2023-09-24 04:38 | External Medical Summary | Summary of Care ---
Author Name Unknown Organization [facility] Address [address] [place] [address] Phone [phone] Care Team Providers Care Director Of Digital Platforms Name Role Phone Mekhi Reyes DO Primary Care Provid er Reason for Visit * Reason Onset Date Comments Home Monitoring Orders Only 08/24/2023 Encounter Details Date Type Department Care Team (Latest Contact Info) Description 08/24/[address] [phone] Mekhi Reyes DO [address] [place] [address] COPD, group D, by GOLD 2017 classification ([facility])* Allergies Active Allergy Reactions Criticality Noted Date Comments Adhesive Tape High 01/09/2023 Other Reaction(s): TEARS SKIN documented as of this encounter (statuses as of 08/25/2023) Medications Medication Sig Dispensed Refills Start Date End Date Status Vitamin D3 1.25 MG (92616 UT) Oral Capsule Take 1 Capsule by [...] Base) MCG/ACT Inhalation Aerosol SolutionIndications :COPD exacerbation ([facility]) Inhale 2 Puffs by mouth every 6 hours as needed for Shortness of Breath or Wheezing. 8.5 g 5 12/16/2022 Active Spacer/Aero-Holding Chambers Device Use with inhaler. 1 Each 0 12/16/2022 Active CPAP every night at bedtime. 0 Active Trelegy Ellipta 200-62.5-25 MCG/ACT Aerosol Powder Breath Activated (Fluticasone-Umecli dinium-Vilanterol)I ndications:COPD, group D, by GOLD 2017 classification ([facility]) Inhale 1 Puff by mouth daily. 60 [...] or chew. 50 Capsule 1 07/27/2023 Active predniSONE 20 MG Oral Tablet (Deltasone)Indicati ons:Sinobronchitis Take 3 tabs for 3 days, 2 tabs for 3 days, 1 tab for 3 days, 1/2 tab for 3 days 20 Tablet 0 07/27/2023 Active Ondansetron HCl 4 MG Oral Tablet Take 1 Tablet by mouth every 6 hours as needed for Nausea. 30 Tablet 0 08/11/2023 Active Hospital, Clinic, or Other Facility Administered [...] as of this encounter (statuses as of 08/25/2023) Active Problems Problem Noted Date Diagnosed Date [...] as of this encounter (statuses as of 08/25/2023) Resolved Problems Problem Noted Date Diagnosed Date [...] as of this encounter (statuses as of 08/25/2023) Immunizations Name Administration Dates Next Due COVID-19 mRNA, LNP-s, No Pre serve, 2-Dose Series ([employer]) 05/15/2021,09/12/2020,08/22/2020 Hepatitis B, 20+ yrs 11/19/2021,05/20/20 21(Deferred: Contraindication),11/13/2020 12/13/2020 Pneumococcal Conjugate Vacc, 13 Valent (Prevnar) 04/20/2018 Pneumococcal Conjugate Vacci ne, 20-valent ([id number]) 01/27/2022 Seasonal Influenza Virus Vac cine, Unspecified [...] as of this encounter Progress Notes * Mekhi Reyes DO - 08/25/2023 7:56 AM EDT Noted * Radha Gan OSA - 08/24/2023 10:32 AM EDT Patient has been discharged from the [place] [address] home monitoring program due to completion of therapy. documented in this encounter Plan of Treatment Upcoming Encounters Date Type Department Care Team ([facility] Contact Info) Description 10/23/2023 8:40 AM EDT Office Visit [address] [phone] Mekhi Reyes Remberto, DO [address] [place] [address] Health Maintenance Due Date Last Done Comments [...] Screening 2024 2023 Albumin/Creatinine Ratio 07/07/2024 07/07/2023, 07/31 GFR 07/07/2024 07/07/2023, 05/0 06/2022, 07/01/2022, Additional history exists O2 ASSESSMENT COMPLETED IN PAST YEAR FOR COPD 07/27/2024 07/27/2023 Lipid Panel 07/07/2028 07/07/2023, 3 , 09/26/2021, [...] as of this encounter Visit Diagnoses Diagnosis COPD, group D, by GOLD 2017 classification (HCC)- Primary documented in this encounter Care Teams Director Of Digital Platforms Relationship Specialty Start Date End Date Mekhi Reyes DO [address] [place] [address] [phone] PCP - General Internal Medicine 12/10/22 documented as of this encounter
--- OUTSIDE RECORDS SUMMARY | 2023-09-24 04:38 | External Medical Summary | Summary of Care ---
Author Name Unknown Organization [facility] Address [address] [place] [address] Phone [phone] Care Team Providers Care Agricultural Equipment Mechanic Name Role Phone Mekhi Reyes Primary Care Provid er Reason for Visit * Reason Onset Date Comments Remote Patient Monitoring Alert 08/24/2023 Encounter Details Date Type Department Care Team (Late st Contact Info) Description 08/24/2023 Telephone Care Coordination and Integration [address], [place] [phone] May Ybarra RN [address], [place] [phone] Remote Patient Monitoring Alert Allergies Active Allergy Reactions Criticality Noted Date Comments Adhesive Tape High 01/09/2023 Other Reaction(s): TEARS SKIN documented as of this encounter (statuses as of 08/24/2023) Medications Medication Sig Dispensed Refills Start Date End Date Status Vitamin D3 1.25 MG (37449 UT) Oral Capsule Take 1 Capsule by [...] Base) MCG/ACT Inhalation Aerosol SolutionIndications :COPD exacerbation ([facility]) Inhale 2 Puffs by mouth every 6 hours as needed for Shortness of Breath or Wheezing. 8.5 g 5 12/16/2022 Active Spacer/Aero-Holding Chambers Device Use with inhaler. 1 Each 0 12/16/2022 Active CPAP every night at bedtime. 0 Active Trelegy Ellipta 200-62.5-25 MCG/ACT Aerosol Powder Breath Activated (Fluticasone-Umecli dinium-Vilanterol)I ndications:COPD, group D, by GOLD 2017 classification ([facility]) Inhale 1 Puff by mouth daily. 60 [...] Active Benzonatate 100 MG Oral Capsule (Tessalon Perlmeliza)Indications: Sinobronchitis Take 1 Capsule by mouth 3 [...] as of this encounter (statuses as of 08/24/2023) Active Problems Problem Noted Date Diagnosed Date [...] as of this encounter (statuses as of 08/24/2023) Resolved Problems Problem Noted Date Diagnosed Date [...] as of this encounter (statuses as of 08/24/2023) Immunizations Name Administration Dates Next Due COVID-19 mRNA, LNP-s, No Pre serve, 2-Dose Series ([employer]) 05/15/2021,09/12/2020,08/22/2020 Hepatitis B, 20+ yrs 11/19/2021,05/20/20 21(Deferred: Contraindication),11/13/2020 12/13/2020 Pneumococcal Conjugate Vacc, 13 Valent (Prevnar) 04/20/2018 Pneumococcal Conjugate Vacci ne, 20-valent ([id number]) 01/27/2022 Seasonal Influenza Virus Vac cine, Unspecified [...] as of this encounter Progress Notes * May Ybarra RN - 08/24/2023 10:26 AM EDT Please discharge the patient from [facility]. Device(s) to be discontinued: 22/12 wearable due to completion of therapy. Thank you. documented in this encounter Plan of Treatment Upcoming Encounters Date Type Department Care Team ([facility] st Contact Info) Description 10/23/2023 8:40 AM EDT Office Visit [address] [phone] Mekhi Reyes, [address] [place] [address] Health Maintenance Due Date Last Done Comments [...] COPD 07/27/2024 07/27/2023 Lipid Panel 07/07/2028 07/07/2023, 01/01, 09/26/2021, Additional history exists Colonoscopy 07/10/2032 07/10/2022, [...] filedocumented as of this encounter Care Teams Agricultural Equipment Mechanic Relationship Specialty Start Date End Date Mekhi Reyes DO [address] [place] [address] [phone] PCP - General Internal Medicine 12/10/22 documented as of this encounter
--- OUTSIDE RECORDS SUMMARY | 2023-09-24 04:38 | External Medical Summary | Summary of Care ---
Author Name Unknown Organization [facility] Address [address] [place] [address] Phone [phone] Care Team Providers Care Lens Maker Name Role Phone Mekhi Reyes Primary Care Provid er Reason for Visit * Reason Onset Date Comments Medication Refill 08/10/2023 Encounter Details Date Type Department Care Team ([facility] st Contact Info) Description 08/10/2023 Refill [facility] [address] [place] [phone] Meliza Batista PA-C [address] [place] [phone] Allergies Active Allergy Reactions Criticality Noted Date Comments Adhesive Tape High 01/09/2023 Other Reaction(s): TEARS SKIN documented as of this encounter (statuses as of 08/11/2023) Medications Medication Sig Dispensed Refills Start Date End Date Status Vitamin D3 1.25 MG (71814 UT) Oral Capsule Take 1 Capsule by [...] Base) MCG/ACT Inhalation Aerosol SolutionIndications :COPD exacerbation ([facility]) Inhale 2 Puffs by mouth every 6 hours as needed for Shortness of Breath or Wheezing. 8.5 g 5 3 Active Spacer/Aero-Holding Chambers Device Use with inhaler. 1 Each 0 3 Active CPAP every night at bedtime. 0 Active Trelegy Ellipta 200-62.5-25 MCG/ACT Aerosol Powder Breath Activated (Fluticasone-Umecli dinium-Vilanterol)I ndications:COPD, group D, by GOLD 2017 classification ([facility]) Inhale 1 Puff by mouth [...] Active Benzonatate 100 MG Oral Capsule (Tessalon Otto)Indications: Sinobronchitis Take 1 Capsule by mouth 3 times a day as needed for Cough. Do not cut, crush, or chew. 50 Capsule 1 4 Active predniSONE 20 MG Oral Tablet (Deltasone)Indicati ons:Sinobronchitis Take 3 tabs for 3 days, 2 tabs for 3 days, 1 tab for 3 days, 1/2 tab for 3 days 20 Tablet 0 4 Active Ondansetron HCl 4 MG Oral Tablet Take 1 Tablet by mouth every 6 hours as needed for Nausea. 30 Tablet 0 4 Active Ondansetron HCl 4 MG Oral Tablet Take 1 Tablet by mouth every 6 hours as needed for Nausea. 30 Tablet 0 3 08/10/19 24 Discontinu ed(Refill) Hospital, Clinic, or Other [...] as of this encounter (statuses as of 08/11/2023) Active Problems Problem Noted Date Diagnosed Date [...] as of this encounter (statuses as of 08/11/2023) Resolved Problems Problem Noted Date Diagnosed Date [...] as of this encounter (statuses as of 08/11/2023) Immunizations Name Administration Dates Next Due COVID-19 mRNA, LNP-s, No Pre serve, 2-Dose Series ([employer]) 05/15/2021,09/12/2020,08/22/2020 Hepatitis B, 20+ yrs 11/19/2021,05/20/20 21(Deferred: Contraindication),11/13/2020 12/13/2020 Pneumococcal Conjugate Vacc, 13 Valent (Prevnar) 04/20/2018 Pneumococcal Conjugate Vacci ne, 20-valent ([id number]) 01/27/2022 Seasonal Influenza Virus Vac cine, Unspecified [...] encounter Miscellaneous Notes * Telephone Encounter - Meliza Batista PA-C - 08/11/2023 7:24 AM EDTSigned Prescriptions: Disp Refills Ondansetron HCl 4 MG Oral Tablet 30 Tab*0 Sig: Take 1 Tablet by mouth every 6 hours as needed for Nausea.Authorizing Provider: MELIZA BATISTA * Telephone Encounter - Anabel Suero OSA - 08/10/2023 7:23 AM EDT Fax request from [facility] documented in this encounter Plan of Treatment Upcoming Encounters Date Type Department Care Team ([facility] st Contact Info) Description 10/23/2023 8:40 AM EDT Office Visit [facility] [address] [place] [phone] Mekhi Reyes DO [address] [place] [address] Health Maintenance Due Date Last Done Comments [...] 04/04/2022, Additional history exists Mammogram 07/29/2023 07/29/2022, 040 07/2020, 08/30/2020, Additional history exists Diabetic Foot [...] filedocumented as of this encounter Care Teams Lens Maker Relationship Specialty Start Date End Date Mekhi Reyes DO [address] [place] [phone] PCP - General Internal Medicine 12/10/22 documented as of this encounter
--- OUTSIDE RECORDS SUMMARY | 2023-09-24 04:38 | External Medical Summary | Summary of Care ---
Author Name Unknown Organization [facility] Address [address] [place] [address] Phone [phone] Care Team Providers Care Pit Boss Name Role Phone Mekhi Reyes DO Primary Care Provid er Reason for Visit * Reason Onset Date Comments Home Monitoring Orders Only 08/24/2023 Encounter Details Date Type Department Care Team (Latest Contact Info) Description 08/24/2023 Home Monitoring [address] [phone] Mekhi Reyes DO [address] [place] [address] COPD, group D, by GOLD 2017 classification ([facility])* Allergies Active Allergy Reactions Criticality Noted Date Comments Adhesive Tape High 01/09/2023 Other Reaction(s): TEARS SKIN documented as of this encounter (statuses as of 08/24/2023) Medications Medication Sig Dispensed Refills Start Date End Date Status Vitamin D3 1.25 MG (92211 UT) Oral Capsule Take 1 Capsule by [...] Inhalation Aerosol SolutionIndications :COPD exacerbation ([facility]) Inhale 2 Puffs by mouth every 6 hours as needed for Shortness of Breath or Wheezing. 8.5 g 5 12/16/2022 Active Spacer/Aero-Holding Chambers Device Use with inhaler. 1 Each 0 12/16/2022 Active CPAP every night at bedtime. 0 Active Trelegy Ellipta 200-62.5-25 MCG/ACT Aerosol Powder Breath Activated (Fluticasone-Umecli dinium-Vilanterol)I ndications:COPD, group D, by GOLD 2017 classification ([facility]) Inhale 1 Puff by mouth [...] mRNA, LNP-s, No Pre serve, 2-Dose Series ([employer]) 05/15/2021,09/12/2020,08/22/2020 Hepatitis B, 20+ yrs 11/19/2021,05/20/20 21(Deferred: Contraindication),11/13/2020 12/13/2020 Pneumococcal Conjugate Vacc, 13 Valent (Prevnar) 04/20/2018 Pneumococcal Conjugate Vacci ne, 20-valent ([id number]) 01/27/2022 Seasonal Influenza Virus Vac cine, Unspecified [...] as of this encounter Progress Notes * Radha Gan OSA - 08/24/2023 10:32 AM EDT Patient has been discharged from the [place] [address] home monitoring program due to completion of therapy. documented in this encounter Plan of Treatment Upcoming Encounters Date Type Department Care Team ([facility] st Contact Info) Description 10/23/2023 8:40 AM EDT Office Visit [address] [phone] Mekhi Reyes DO [address] [place] [address] Health Maintenance Due Date Last Done Comments DTaP,Tdap,and Td Vaccines (1 - Tdap) 1981 HPV/Co-Test 1992 Cologuard 2007 Fecal Occult Blood Test 2007 Sigmoidoscopy 2007 *COPD SEVERITY VERIFIED BY PFT 09/05/2020 Hepatitis B (3 of 3 - 19+ 3-dose series) 01/14/2022 11/19/2021, 11/13/2020 COVID-19 Vaccine ( season) 2023 05/15/2021, 09/12/2020, [...] COPD, group D, by GOLD 2017 classification ([facility])- Primary documented in this encounter Care Teams Pit Boss Relationship Specialty Start Date End Date Mekhi Reyes DO [address] [place] [address] PCP - General Internal Medicine 12/10/22 documented as of this encounter
[2023-09-24 08:03] LABS: Hematocrit (blood only) 41.4 % (37.0-47.0); Hemoglobin 12.9 g/dl (12.0-16.0); Mean Corpuscular Hemoglobin 28.4 pg (25.0-34.0); Mean Corpuscular Hgb Conc 31.2 g/dL (32.0-36.0); Mean Corpuscular Volume 91.2 fL (80.0-100.0); Mean Platelet Volume 10.4 fL (9.4-12.4); Platelet Count 199 K/uL (130-400); RDW Coefficient of Variation 12.5 % (11.5-14.5); RDW Standard Deviation 41.4 fL (36.4-46.3); Red Blood Count 4.54 M/uL (4.20-5.40); White Blood Count 5.58 K/ul (4.8-10.8)
[2023-09-24 08:21] LABS: BUN Creatinine Ratio 17.4 (10-20); Calcium 9.5 mg/dl (8.6-10.3); Creatinine Clr Calc Pharmacy 67.5 ml/min; Est GFR (African American) 77.9 ml/min; Est GFR (Non-African American) 67.2 ml/min; Potassium 4.6 mmol/L (3.5-5.1)
[2023-09-24] MEDS: lisinopril 2.5 MG TAB PO SCH (08:38)
[2023-09-24] MEDS: DULoxetine HCL 60 MG CAP PO SCH (08:38)
[2023-09-24] MEDS: CELECOXIB 100 MG CAP PO SCH (08:39)
[2023-09-24] MEDS: buPROPion XL 150 MG TABCR PO SCH (08:39)
[2023-09-24] MEDS: PANTOprazole 40 MG TAB PO SCH (08:39)
[2023-09-24] MEDS: CHOLECALCIFEROL 25 MCG (1000 UNITS) TAB PO SCH (08:40)
[2023-09-24] MEDS: FLUTICASONE FUROATE 200MCG 14 PUFFS/INHALER INH SCH (08:40)
[2023-09-24] MEDS: UMECLIDINIUM/VILANTEROL 62.5/25MCG 7 PUFFS/INHALER INH SCH (08:40)
--- NOTE | 2023-09-24 08:45 | Pulmonary Consultation ---
Date of Consultation September 24, 2023 Assessment & Plan (1) Acute exacerbation of chronic obstructive pulmonary disease: (2) Shortness of breath: (3) Eosinophilic asthma: (4) Chronic respiratory failure with hypoxia: (5) LALO (obstructive sleep apnea): Plan IMPRESSION: 63-year-old female with a significant pulmonary history of COPD with emphysema, eosinophilic asthma, obstructive sleep apnea, chronic respiratory failure with hypoxia, and prior history of smoking who presents in the setting of COPD with exacerbation and worsening dyspnea. RECOMMENDATIONS: 1. COPD with exacerbation - Patient presenting with acute on chronic exacerbation of her baseline COPD. Unfortunately, the patient has had some ongoing pulmonary issues over the last few weeks. She has completed a course of doxycycline and prednisone with improvement, but symptoms quickly returned after being off the prednisone therapy. She is bronchospastic on exam today. She utilizes Trelegy at home at baseline. Given her rebounding symptoms and impressive bronchospasm on exam today, will change her to nebulized therapies including the desonide and Perforomist. Will start Incruse. Will hold on her other maintenance inhalers. Continue with DuoNebs as needed. Agree with continuing parenteral methylprednisolone at this point. Titrate down as able. Patient may require longer taper of steroids in the outpatient setting. Complete course of azithromycin for its anti-inflammatory properties as well. 2. Shortness of breath - Secondary to COPD with exacerbation. Additionally, the patient is noted to be moderately tachycardic which is persistent. Recommend evaluation of her tachycardia as this certainly could continue to worsen and precipitate ongoing complaints of dyspnea as well. Given her ongoing symptoms, recurrence of upper respiratory infections, and persistent tachycardia, dyspnea, and hypoxia, will order CTA to assess possible thromboembolic process as well. 3. Eosinophilic asthma - Recently started on Tezspire. Has noticed symptomatic improvement with decreased use of her rescue inhaler. Continue for now, however consideration for possible assessment of other biologic agent if the patient is continue to have breakthrough episodes of COPD exacerbation despite being on biologic therapy. This can be discussed in the outpatient setting if necessary. 4. Chronic respiratory failure with hypoxia - Patient is back to her baseline requirement of 2 L nasal cannula. 5. Obstructive sleep apnea - Continue with home CPAP settings at night. Thank you for allowing us to participate in the care of this pleasant patient. Pulmonary medicine will continue to follow. Supervising Physician Co-Signing Physician Notes I saw and evaluated the patient with Nikhil Bautista PA-C, and agree with findings and plan as documented in the note. 63-year-old known patient of mine following with pulmonary for COPD-asthma overlap syndrome, chronic hypoxic respiratory failure presented to hospital with complaints of shortness of breath Was found to be in COPD-asthma exacerbation. Patient says that she has been compliant with her inhalers which is Trelegy 200 along with albuterol. She is also getting transpire every 4 weeks which she is compliant with She got a dose of prednisone approximately a month ago for shortness of breath and wheezing. Does complain of phlegm which has difficulty to bring it up. Denies any fever or chills. She denies any unusual headache or blurry vision. No dysuria, or diarrhea. Constitutional: No acute distress HEENT: EOMI, PERRLA Respiratory system: Decreased air entry bilaterally, positive expiratory wheeze, no rhonchi, mild crackles bilateral lower lobes CVS: S1-S2 positive, no murmurs or gallops, tachycardia Abdomen: Soft, nontender, nondistended, positive bowel sounds x4 Extremities: +2 pulses bilaterally radialis/ dorsalis pedis, no cyanosis, no edema Neuro: Awake alert oriented x3 Psych: Normal mood and affect G/U: No edema Plan: Given the persistent tachycardia will order a CTA chest to make sure patient does not have a pulmonary emboli Patient's QTc is 451. Will consider sending the patient on azithromycin Tnicmo-Yikxvkzou-Xxjabr and addition of Roflumilast will be thought of. Procalcitonin negative. Respiratory bio fire negative for everything Patient will benefit from pulmonary rehab on discharge. Order IgE to be done in the morning to see if it is still trending down. Continue with Brovana and budesonide along with Incruse inhaler along with steroids. Please note the above document was generated using voice recognition software. It may contain grammatical, syntax or spelling errors.Any formal questions or concerns about the content, text or information contained within the body of this dictation should be directly addressed to the provider for clarification. History of Present Illness Reason for Consultation: copd/asthma exac Requesting Physician: Marlen Nicolas PA-C Attending Physician: Jay Agee MD History of Present Illness Patient is a 63-year-old female with a significant past medical history of COPD with emphysema, asthma, obstructive sleep apnea, eosinophilic asthma, chronic respiratory failure with hypoxia on 2 L nasal cannula, and prior history of smoking who presents to the emergency department with complaints of worsening dyspnea and cough over the last week. The patient had initiated Teszpire recently and has had 3 injections. She states that her use of her daily rescue inhaler had nearly completely resolved up until the last few weeks. She reports that she had been seen at her primary care provider's office approximately 2 weeks ago with similar complaints of shortness of breath and cough. She was placed on a course of doxycycline and prednisone. She states that as soon as she was off his course of prednisone she had rebound of her symptoms including shortness of breath, cough, and wheezing. She has had no fevers or chills. No chest pain or palpitations. No hemoptysis. Patient reports that she has had to use antibiotics and/or steroids approximately 10 times in the last year. She was hospitalized within the last few months as well. Allergies Allergy/AdvReac Type Severity Reaction Status Date / Time adhesive tape AdvReac Severe TEARS SKIN Verified 09/23/23 14:57 Home Medications Medication Instructions Recorded Confirmed Type cholecalciferol (vitamin D3) 25 1,000 unit PO QAM 08/25/18 09/23/23 History mcg (1,000 unit) capsule (Vitamin D3) bupropion HCl 150 mg 24 hr tablet, 150 mg PO QAM 08/08/20 09/23/23 History extended release multivit-iron 18 mg-folic acid 400 1 tab PO QAM 08/08/20 09/23/23 History mcg-calcium 500 mg-minerals tablet (Women's One Daily) atorvastatin 40 mg tablet 40 mg PO HS 03/17/21 09/23/23 History trazodone 50 mg tablet 50 mg PO HS 03/17/21 09/23/23 History pantoprazole 40 mg tablet,delayed 40 mg PO QAM gastritis #90 tabs 06/24/21 09/23/23 Rx release (Protonix) infliximab 100 mg intravenous See Rx Instructions IV Q8WK #8 ea 02/04/23 09/23/23 Rx solution (Remicade) celecoxib 100 mg capsule 100 mg PO DAILY 04/04/23 09/23/23 History duloxetine 60 mg capsule,delayed 60 mg PO QAM 04/04/23 09/23/23 History release gabapentin 800 mg tablet 800 mg PO TID 04/04/23 09/23/23 History tramadol 50 mg tablet 50 mg PO BID PRN Pain 04/04/23 09/23/23 History Portable Oxygen E0431 #1 ea 05/06/23 09/23/23 Rx albuterol sulfate 90 mcg/actuation 2 puff inhalation Q4H PRN 05/06/23 09/23/23 Rx aerosol inhaler Shortness Of Breath Or Wheezing #8.5 grams fluticasone fur. 200 mcg-umeclid 1 ea inhalation QAM #60 ea 05/06/23 09/23/23 Rx 62.5 mcg-vilant 25 mcg inhalat.powder (Trelegy Ellipta) tezepelumab-ekko 210 mg/1.91 mL 210 mg (1.91 mL) subcut Q4WK #1.91 05/14/23 09/23/23 Rx (110 mg/mL) subcutaneous pen mL injector (Tezspire) ipratropium 0.5 mg-albuterol 3 mg 3 ml inhalation QID PRN Shortness 06/17/23 09/23/23 History (2.5 mg base)/3 mL nebulization Of Breath Or Wheezing soln lisinopril 2.5 mg tablet 2.5 mg PO DAILY 06/17/23 09/23/23 History benzonatate 100 mg capsule 100 mg PO TID PRN cough #30 caps 06/20/23 09/23/23 Rx Patient History Medical History Eosinophilic asthma Acute viral bronchitis Elevated IgE level Acute asthma exacerbation Leiomyoma of uterus History of COVID-19 diagnosed 03/17/21 @ [facility]--had difficulty breathing d/t COPD and had to hospitalized with oxygen for 1 week, pt states no lingering symptoms Crohns disease GERD (gastroesophageal reflux disease) DM type 2 (diabetes mellitus, type 2) NIDDM- DIET CONTROLLED Depression Anxiety History of migraine LALO (obstructive sleep apnea) CPAP DVT prophylaxis Asthma COPD (chronic obstructive pulmonary disease) well controlled w/ inhaler daily/prn, has not needed neb in "a while" Chronic low back pain Hyperlipidemia Hypertension Surgical History History of appendectomy S/P colon resection (07/04/21) Laparoscopic Assisted Right Colon Resection - Gildardo Woods MD, FACS 07/04/2021 History of esophagogastroduodenoscopy (EGD) History of tooth extraction History of tubal ligation History of D&C History of appendectomy History of lumbar surgery x 5; hardware present History of colonoscopy last 02/21/21 @ [facility] History of carpal tunnel surgery BL Family History Brother Diabetes Father , in early 60s from AMI Diabetes Myocardial infarction Mother , in her 60s; "natural" causes No problems noted. Other No family history of adverse response to anesthesia Denies family history of Inflammatory bowel disease Social History Smoking Status: Former smoker Tobacco Type: Cigarettes Age Started Using Tobacco: 16; Age Quit Using Tobacco: 43; packs per day: 2.5; Second Hand Exposure: No; Do You Dip or Chew Tobacco: No; Hx Alcohol Use: No Hx Substance Use: No Preferred Language: [place] Communication Ability: Effective Visual Impairment: Limited Hearing Ability: Normal Construction Code Administrator Required: No Beliefs That Will Affect Care: None marital status: Current Living Situation: Spouse and Family Current Living Situation Comment: lives with and grandson current occupational status: retired current occupation: worked at [employer] How many Children do You have: 1 Other Information That Helps Us Care for You: No other: lives in [place] Feels Safe at Home: Yes Safety Concerns: Feels Safe At This Time Diet: diabetic Seatbelt Use: always Do you think of yourself as: straight/heterosexual Gender Identity: Female Assistive Devices: CPAP, Glasses, Nebulizer and Oxygen - Continuous Review of Systems 2 Review of Systems: A complete 10 point review of systems was reviewed with the patient with pertinent positives and negatives as per history of present illness. All else were negative. Physical Exam 2 Physical Exam: VITAL SIGNS - Vital signs and nursing notes were reviewed. GENERAL - 63-year-old female appearing her stated age who is in no acute distress. Communicates well with provider and answers questions appropriately. SKIN - Without rashes or lesions. NOSE - Midline and without cyanosis. MOUTH/OROPHARYNX - Without perioral cyanosis. NECK - Neck with FROM. LUNGS - Chest wall evaluation demonstrates normal chest wall A:P diameter. Auscultation reveals diffuse wheezing appreciated. CARDIAC - RRR with S1/S2. No murmur, rubs, or gallops appreciated. ABDOMEN - Abdominal inspection demonstrates an obese abdomen. BS normoactive all four quadrants. No tenderness, palpable masses, or ascites noted. EXTREMITIES - Nail clubbing not present. No peripheral cyanosis. No pretibial edema present. +3/5 radial palpated throughout. PSYCH - A&Ox3 and cooperates fully with examiner. Pt is very pleasant and interacts well with examiner. Results & Data Results & Data Vital Signs (Past 12 Hours) Vital Signs Temp Pulse Pulse Pulse Resp BP BP 09/24/23 08:01 36.5 C 109 H 18 134/86 09/24/23 07:34 09/24/23 07:19 115 H 18 09/24/23 03:47 36.8 C 92 H 16 150/83 H 09/23/23 23:34 108 H 09/23/23 22:04 97 H 09/23/23 21:53 09/23/23 21:35 36.7 C 98 H 18 148/89 H Pulse Ox O2 Del Method O2 Flow Rate 09/24/23 08:01 99 Nasal Cannula 2 09/24/23 07:34 Nasal Cannula 2 09/24/23 07:19 92 Nasal Cannula 2 09/24/23 03:47 96 Room Air 09/23/23 23:34 09/23/23 22:04 09/23/23 21:53 Nasal Cannula 2 09/23/23 21:35 93 Nasal Cannula 2 Laboratory Results 09/24/23 06:49 09/24/23 06:49 PG Care Time/CCT Total # of Minutes Spent Total Time Spent with Patient: Total time spent is greater than 50% in coordination of care (as documented) at patient's floor/unit and/or counseling patient: Coding Level of Care Code 80169 INT INP/OBS CARE 3/75MIN Diagnoses Acute exacerbation of chronic obstructive pulmonary disease J44.1 Shortness of breath R06.02 Eosinophilic asthma J82.83 Chronic respiratory failure with hypoxia J96.11 LALO (obstructive sleep apnea) G47.33
[2023-09-24] MEDS ORDERED: NON-FORMULARY MEDICATION (Fluticasone-Umeclidin-Vilanter [Trelegy Ellipta] 200-62.5-25 mcg INH SCH (09:00)
[2023-09-24] MEDS: AZITHROMYCIN 250 MG TAB PO ONE (10:17)
--- NOTE | 2023-09-24 13:40 | Hospitalist Progress Note ---
Date of Service September 24, 2023 Assessment & Plan (1) Acute exacerbation of chronic obstructive pulmonary disease: (2) Chronic respiratory failure with hypoxia: (3) Eosinophilic asthma: (4) Elevated troponin: (5) DM type 2 (diabetes mellitus, type 2): (6) Hypertension: (7) Hyperlipidemia: (8) Crohns disease: (9) Chronic low back pain: (10) LALO (obstructive sleep apnea): (11) GERD (gastroesophageal reflux disease): (12) Depression: Plan: Acute COPD exacerbation Eosinophilic asthma Chronic hypoxic respiratory failure Patient is 63 year old female with PMH HTN, HLD, diet controlled DM II, Crohn's, asthma, COPD, chronic respiratory failure on 2L oxygen, depression, LALO, GERD, chronic pain presented to ER with c/o SOB x 3 weeks. Treated outpatient 09/02/2023 with doxycycline x 7 days, prednisone taper. 09/02/2023 CXR: Without acute findings. Still with SOB and wheezing, no further fevers. In ER afebrile, on chronic 2 L via nasal cannula with oxygen sats 95%. No leukocytosis. Negative respiratory panel. Lactate: WNL. procalcitonin: 0.02 CXR: Emphysema changes, no acute infiltrate In ER was given albuterol neb, Solu-Medrol 60 mg IV Will hold on antibiotics with low procalcitonin level as CXR without infiltrate and recently completed course of doxycycline Duonebs Solumedrol 40mg IV Q8H for now, plan to transition to oral prednisone when able Incentive spirometry, flutter valve Continue Trelegy Continue home oxygen, 2L via [place] On Tezspire Q4 weeks. Last was 09/16/23 Appreciate pulmonary input and recommendation Has been started on Incruse and azithromycin for additional anti-inflammatory action Clinically a little better since admission Will need longer tapering of steroid on discharge Elevated troponin: Troponin: 16 EKG: sinus rhythm, no significant ST changes noted Chronic elevated troponin-did not show any increase in troponin EKG in am-no acute EKG changes DM type 2 (diabetes mellitus, type 2): A1c: 6.4 on 07/07/23 Diet controlled Monitor glucose Hypertension: Stable Continue lisinopril Hyperlipidemia: Continue atorvastatin Chronic low back pain: Continue gabapentin, tramadol prn Crohn's disease: On infliximab Q8 weeks. Next dose scheduled for 10/02/23 Obstructive sleep apnea syndrome: Continue CPAP HS GERD (gastroesophageal reflux disease): Continue PPI Depression: Continue bupropion, duloxetine DVT Prophylaxis Lovenox SQ Full Code as per discussion with pt Follows with Dr Mekhi Reyes for routine care Admission and Anticipated Discharge Date Admission Date: September 23, 2023 Subjective 09/24/2023 The patient was seen and examined in medical telemetry unit She has been feeling a little better since admission Still has wheezing and mild shortness of breath at rest No fever and or chills and no chest pain and her palpitation Review of Systems Review of Systems: All systems reviewed and are unremarkable except as noted below Physical Exam Physical Exam: Sitting at the edge of the bed with moderate shortness of breath at rest Constitutional: + ill appearing and average body habitus Eyes: PERRL, conjunctivae normal, anicteric sclerae ENMT: external ear and nose normal, oropharynx normal Neck: trachea midline, no thyromegaly Respiratory: + respiratory distress Auscultation: + diminished lung sounds, + crackles and + wheezes Cardiovascular: Rate/Rhythm: regular rate, regular rhythm and + tachycardic Heart Sounds: normal S1 and normal S2; no murmur Extremities: no edema Gastrointestinal (Abdomen): Inspection/Auscultation: normal bowel sounds; abdomen not distended Percussion/Palpation: abdomen soft; abdomen nontender Musculoskeletal: No acute arthritis involving any of the joints Neurologic: normal touch/pain/proprioception and moves all extremities; no focal motor deficits Psychiatric: A+Ox3, euthymic affect Lymphatic: no cervical or axillary lymphadenopathy Results & Data Results & Data Vital Signs (Past 12 Hours) Vital Signs Temp Pulse Pulse Pulse Resp BP Pulse Ox 09/24/23 11:34 36.6 C 123 H 18 128/73 93 09/24/23 10:40 111 H 18 93 09/24/23 09:16 110 H 09/24/23 08:01 36.5 C 109 H 18 134/86 99 09/24/23 07:34 09/24/23 07:19 115 H 18 92 09/24/23 03:47 36.8 C 92 H 16 150/83 H 96 O2 Del Method O2 Flow Rate 09/24/23 11:34 Nasal Cannula 2 09/24/23 10:40 Nasal Cannula 2 09/24/23 09:16 09/24/23 08:01 Nasal Cannula 2 09/24/23 07:34 Nasal Cannula 2 09/24/23 07:19 Nasal Cannula 2 09/24/23 03:47 Room Air Laboratory Results Short CBC 09/24/23 Range/Units 06:49 WBC 5.58 (4.8-10.8) K/ul Hgb 12.9 (12.0-16.0) g/dl Hct 41.4 (37.0-47.0) % Plt Count 199 (130-400) K/uL BMP 09/23/23 09/24/23 12:32 06:49 Sodium 141 140 Potassium 4.7 4.6 Chloride 104 105 Carbon Dioxide 33 H 28 BUN 8 16 Creatinine 0.96 0.92 Glucose 97 150 H Calcium 8.8 9.5 Liver Function 09/23/23 Range/Units 12:32 Total Bilirubin 0.4 (0.2-1.0) mg/dl AST 14 (13-39) U/L ALT 10 (7-52) U/L Alkaline Phosphatase 89 (34-104) U/L Albumin 3.5 (3.4-5.0) gm/dl Medications Administered Current Inpatient Medications Acetaminophen (Acetaminophen 325 Mg Tab) 650 mg PO Q4H PRN PRN Reason: Pain or Fever Stop: 10/23/23 18:09 Albuterol (Albut/Ipratrop 3mg/0.5mg Neb 3 Ml Vial) 3 ml NEB QIDR JESSENIA; Protocol Stop: 10/23/23 18:59 Last Admin: 09/24/23 10:38 Dose: 3 ml Albuterol (Albut/Ipratrop 3mg/0.5mg Neb 3 Ml Vial) 3 ml NEB Q2H PRN; Protocol PRN Reason: Shortness Of Breath Or Wheezing Stop: 10/23/23 22:42 Atorvastatin Calcium (Atorvastatin 40 Mg Tab) 40 mg PO HS JESSENIA Stop: 10/23/23 20:59 Last Admin: 09/23/23 22:16 Dose: 40 mg Azithromycin (Azithromycin 250 Mg Tab) 250 mg PO QAM JESSENIA Stop: 09/28/23 09:01 Budesonide (Budesonide 0.5 Mg/2 Ml Vial (Pulmicort)) 0.5 mg INH BIDR JESSENIA Stop: 10/24/23 18:59 Bupropion HCl (Bupropion Xl 150 Mg Tabcr) 150 mg PO QAM JESSENIA Stop: 10/24/23 08:59 Last Admin: 09/24/23 08:39 Dose: 150 mg Celecoxib (Celecoxib 100 Mg Cap) 100 mg PO DAILY COUNT INCLUDES THE [facility] Stop: 10/24/23 08:59 Last Admin: 09/24/23 08:39 Dose: 100 mg Duloxetine HCl (Duloxetine Hcl 60 Mg Cap) 60 mg PO QAM COUNT INCLUDES THE [facility] Stop: 10/24/23 08:59 Last Admin: 09/24/23 08:38 Dose: 60 mg Enoxaparin Sodium (Enoxaparin Inj 40 Mg/0.4 Ml Syr) 40 mg SQ Q24H COUNT INCLUDES THE [facility] Stop: 10/23/23 18:59 Last Admin: 09/23/23 19:21 Dose: 40 mg Formoterol Fumarate (Formoterol 20 Mcg/2 Ml Vial) 20 mcg INH BIDR COUNT INCLUDES THE [facility] Stop: 10/24/23 18:59 Gabapentin (Gabapentin 800 Mg Tab) 800 mg PO TID COUNT INCLUDES THE [facility] Stop: 10/23/23 20:59 Last Admin: 09/24/23 12:59 Dose: 800 mg Methylprednisolone 40 mg/ (Syringe) 0.64 mls @ 1.5 mls/min IV Q8H COUNT INCLUDES THE [facility] Stop: 10/23/23 21:59 Last Admin: 09/24/23 12:59 Dose: 1.5 mls/min Lisinopril (Lisinopril 2.5 Mg Tab) 2.5 mg PO DAILY COUNT INCLUDES THE [facility] Stop: 10/24/23 08:59 Last Admin: 09/24/23 08:38 Dose: 2.5 mg Ondansetron HCl (Ondansetron Inj 2 Mg/Ml 2 Ml Vial) 4 mg IV Q6H PRN PRN Reason: Nausea Stop: 10/23/23 18:09 Pantoprazole Sodium (Pantoprazole 40 Mg Tab) 40 mg PO QAM COUNT INCLUDES THE [facility] Stop: 10/24/23 08:59 Last Admin: 09/24/23 08:39 Dose: 40 mg Polyethylene Glycol (Polyethylene (Miralax) 17 Gm Pack) 17 gm PO DAILY PRN PRN Reason: Constipation Stop: 10/23/23 18:09 Tramadol HCl (Tramadol Hcl 50 Mg Tablet) 50 mg PO BID PRN PRN Reason: Mod-Sev Pain (Scale 4-10) Stop: 10/23/23 18:09 Trazodone HCl (Trazodone Hcl 50 Mg Tab) 50 mg PO HS JESSENIA Stop: 10/23/23 20:59 Last Admin: 09/23/23 21:01 Dose: 50 mg Umeclidinium [place] (Umeclidinium [place] 62.5mcg/Blister 7 Puffs/Inhaler) 1 puffs INH DAILY JESSENIA Stop: 10/25/23 08:59 Vitamin D (Cholecalciferol 25 Mcg (1000 Units) Tab) 25 mcg PO QAM JESSENIA Stop: 10/24/23 08:59 Last Admin: 09/24/23 08:40 Dose: 25 mcg (11) GERD (gastroesophageal reflux disease) Esophagitis presence: esophagitis presence not specified Qualified Code(s): K21.9 - Gastro-esophageal reflux disease without esophagitis
--- NOTE | 2023-09-24 15:49 | Electrocardiogram Report ---
Test Reason : Blood Pressure : / mmHG Vent. Rate : 107 BPM Atrial Rate : 107 BPM P-R Int : 144 ms QRS Dur : 078 ms QT Int : 338 ms P-R-T Axes : 000 069 075 degrees QTc Int : 451 ms Sinus tachycardia with Premature atrial complexes in a pattern of bigeminy Otherwise normal ECG When compared with ECG of 23-SEP-2023 12:29, Premature atrial complexes are now Present Confirmed by Royce Mckeon ([id number]) on 09/24/2023 3:48:48 PM Referred By: REFERRED SELF Confirmed By:Royce Mckeon
[2023-09-24] MEDS: ACETAMINOPHEN 325 MG TAB PO PRN (18:08)
[2023-09-24] MEDS: guaiFENesin 600 MG TABCR PO SCH (19:57)
[2023-09-24] MEDS: BUDESONIDE 0.5 MG/2 ML VIAL (PULMICORT) INH SCH (20:05)
[2023-09-24] MEDS: FORMOTEROL 20 MCG/2 ML VIAL INH SCH (20:06)
[2023-09-25] MEDS: OPTIRAY 320 125ml IV ONE (01:47)
--- NOTE | 2023-09-25 04:32 | CT Scan Report ---
Exam(s): CTA CHEST IV Amt: 118 CC OPTI 320 EXAM: CT Angiography Chest With Intravenous Contrast CLINICAL HISTORY: Reason for exam: PE. TECHNIQUE: Axial computed tomographic angiography images of the chest with intravenous contrast. CTDI is 22.02 mGy and DLP is 760.77 mGy-cm. 3D and MIP images were created and reviewed. Automated exposure control was utilized for the study. A dose lowering technique was utilized adhering to the principles of ALARA. 3D and MIP reconstructed images were created and reviewed. COMPARISON: 06/17/2023 FINDINGS: Pulmonary arteries: No pulmonary embolism. Aorta: No thoracic aortic aneurysm or dissection. Atherosclerotic vascular calcifications. Lungs: No consolidation. Scattered emphysematous changes. Minimal peribronchial thickening. Minimal peripheral basilar atelectasis. Pleural space: No pleural effusion. No pneumothorax. Heart: No cardiomegaly. No pericardial effusion. No evidence of RV dysfunction. Bones/joints: No acute fracture. Degenerative changes of the spine and shoulders. Soft tissues: Left thyroid consistent calcifications. Lymph nodes: Unremarkable. No enlarged lymph nodes. IMPRESSION: No pulmonary embolism. Redemonstrated emphysema with mild peribronchial thickening minimal atelectasis/scarring. Electronically signed by: Jayjay Castorena M.D. 09/25/23 04:31 AM
[2023-09-25 06:24] LABS: Hematocrit (blood only) 38.6 % (37.0-47.0); Hemoglobin 12.1 g/dl (12.0-16.0); Mean Corpuscular Hemoglobin 28.7 pg (25.0-34.0); Mean Corpuscular Hgb Conc 31.3 g/dL (32.0-36.0); Mean Corpuscular Volume 91.5 fL (80.0-100.0); Mean Platelet Volume 10.3 fL (9.4-12.4); Platelet Count 212 K/uL (130-400); RDW Coefficient of Variation 12.8 % (11.5-14.5); RDW Standard Deviation 42.4 fL (36.4-46.3); Red Blood Count 4.22 M/uL (4.20-5.40); White Blood Count 13.65 K/ul (4.8-10.8)
[2023-09-25 06:35] LABS: BUN Creatinine Ratio 24.3 (10-20); Calcium 8.6 mg/dl (8.6-10.3); Creatinine Clr Calc Pharmacy 55.5 ml/min; Est GFR (African American) 62.1 ml/min; Est GFR (Non-African American) 53.6 ml/min; Phosphorus 3.8 mg/dl (2.5-4.9); Potassium 4.9 mmol/L (3.5-5.1)
[2023-09-25 06:56] LABS: Basophils # (auto) 0.01 K/uL (0.00-0.20); Basophils % (auto) 0.1 %; Immature Granulocytes # (auto) 0.14 K/uL (0.01-0.20); Lymphocytes # (auto) 0.56 K/uL (1.20-3.40); Lymphocytes % (auto) 4.1 %; Monocytes # (auto) 0.39 K/uL (0.11-0.59); Monocytes % (auto) 2.9 %; Neutrophils # (auto) 12.55 K/uL (1.40-6.50); Neutrophils % (auto) 91.9 %
[2023-09-25] MEDS: AZITHROMYCIN 250 MG TAB PO SCH (07:53)
[2023-09-25] MEDS: UMECLIDINIUM BROMIDE 62.5MCG/BLISTER 7 PUFFS/INHALER INH SCH (07:54)
[2023-09-25] MEDS ORDERED: ALBUT/IPRATROP 3MG/0.5MG NEB 3 ML VIAL NEB PRN (11:38)
--- NOTE | 2023-09-25 11:42 | Pulmonology Progress Note ---
Date of Service September 25, 2023 Assessment & Plan (1) Acute exacerbation of chronic obstructive pulmonary disease: (2) Shortness of breath: (3) Eosinophilic asthma: (4) Chronic respiratory failure with hypoxia: (5) LALO (obstructive sleep apnea): Plan IMPRESSION: 63-year-old female with a significant pulmonary history of COPD with emphysema, eosinophilic asthma, obstructive sleep apnea, chronic respiratory failure with hypoxia, and prior history of smoking who presents in the setting of COPD with exacerbation and worsening dyspnea. CTA chest 09/25/2023 personally reviewed: Centrilobular emphysema appreciated bilaterally Minimal dependent atelectasis on the right lower lobe No significant mediastinal lymphadenopathy RECOMMENDATIONS: --Asthma-COPD COPD with exacerbation Completed a course of doxycycline and prednisone with improvement On Trelegy 200 at home Respiratory bio fire as well as procalcitonin negative -- Shortness of breath Secondary to COPD with exacerbation. -- Eosinophilic asthma On Tezspire -- Chronic respiratory failure with hypoxia Patient is back to her baseline requirement of 2 L nasal cannula. -- Obstructive sleep apnea Continue with home CPAP settings at night. Plan: CTA chest was negative for pulmonary emboli Patient still has persistent tachycardia in the 120s. I think consideration of diltiazem to control the heart rate should be made as patient will develop tachycardia induced cardiomyopathy if her heart rate continues to stay like this. Patient says that her heart rate is high at rest even at home Change DuoNebs to as needed I do recommend addition of azithromycin 250 mg [id number] on discharge on top of Trelegy 200 Decrease Solu-Medrol to 40 mg every 12 Follow-up IgE Continue with Brovana and budesonide along with Incruse inhaler along with steroids. Please note the above document was generated using voice recognition software. It may contain grammatical, syntax or spelling errors.Any formal questions or concerns about the content, text or information contained within the body of this dictation should be directly addressed to the provider for clarification. Admission and Anticipated Discharge Date Admission Date: September 23, 2023 Subjective Patient seen and examined. No acute distress, no adverse events overnight She says she is feeling better. She was saturating 97% on 2 L nasal cannula but I went down to 1 L Her heart rate was still in the 120s. Denied any headache, no nausea, no vomiting Has been afebrile. Review of Systems 2 Review of Systems: All systems reviewed & are unremarkable except as noted in Subjective Physical Exam 2 Physical Exam: Constitutional: No acute distress HEENT: EOMI, PERRLA Respiratory system: Decreased air entry bilaterally, no wheeze, no rhonchi, mild crackles bilateral lower lobes CVS: S1-S2 positive, no murmurs or gallops, tachycardia Abdomen: Soft, nontender, nondistended, positive bowel sounds x4 Extremities: +2 pulses bilaterally radialis/ dorsalis pedis, no cyanosis, no edema Neuro: Awake alert oriented x3 Psych: Normal mood and affect G/U: No edema Skin: no rashes, warm and dry Lymphatic: no cervical or axillary lymphadenopathy Results & Data Results & Data Vital Signs (Past 12 Hours) Vital Signs Temp Pulse Pulse Resp BP Pulse Ox O2 Del Method 09/25/23 11:23 36.8 C 123 H 20 127/72 100 Nasal Cannula 09/25/23 08:03 128 H 09/25/23 07:43 36.8 C 115 H 20 125/76 93 Nasal Cannula 09/25/23 07:13 Nasal Cannula 09/25/23 07:12 118 H 20 96 Nasal Cannula 09/25/23 02:38 36.7 C 114 H 18 123/83 95 Nasal Cannula 09/25/23 01:56 117 H 09/25/23 01:39 Nasal Cannula 09/25/23 00:11 36.5 C 120 H 18 136/80 93 Nasal Cannula O2 Flow Rate 09/25/23 11:23 2 09/25/23 08:03 09/25/23 07:43 2 09/25/23 07:13 2 09/25/23 07:12 2 09/25/23 02:38 2 09/25/23 01:56 09/25/23 01:39 2 09/25/23 00:11 2 Laboratory Results 09/25/23 05:39 09/25/23 05:39 PG Care Time/CCT Total # of Minutes Spent Total Time Spent with Patient: Total time spent is greater than 50% in coordination of care (as documented) at patient's floor/unit and/or counseling patient: Coding Level of Care Code 92230 SUB INP/OBS CARE 2/35MIN Diagnoses Acute exacerbation of chronic obstructive pulmonary disease J44.1 Shortness of breath R06.02 Eosinophilic asthma J82.83 Chronic respiratory failure with hypoxia J96.11 LALO (obstructive sleep apnea) G47.33
--- NOTE | 2023-09-25 15:31 | Hospitalist Progress Note ---
Date of Service September 25, 2023 Assessment & Plan (1) Acute exacerbation of chronic obstructive pulmonary disease: (2) Chronic respiratory failure with hypoxia: (3) Eosinophilic asthma: (4) Elevated troponin: (5) DM type 2 (diabetes mellitus, type 2): (6) Hypertension: (7) Hyperlipidemia: (8) Crohns disease: (9) Chronic low back pain: (10) LALO (obstructive sleep apnea): (11) GERD (gastroesophageal reflux disease): (12) Depression: Plan: Acute COPD exacerbation Eosinophilic asthma Chronic hypoxic respiratory failure Patient is 63 year old female with PMH HTN, HLD, diet controlled DM II, Crohn's, asthma, COPD, chronic respiratory failure on 2L oxygen, depression, LALO, GERD, chronic pain presented to ER with c/o SOB x 3 weeks. Treated outpatient 09/02/2023 with doxycycline x 7 days, prednisone taper. 09/02/2023 CXR: Without acute findings. Still with SOB and wheezing, no further fevers. In ER afebrile, on chronic 2 L via nasal cannula with oxygen sats 95%. No leukocytosis. Negative respiratory panel. Lactate: WNL. procalcitonin: 0.02 CXR: Emphysema changes, no acute infiltrate In ER was given albuterol neb, Solu-Medrol 60 mg IV Will hold on antibiotics with low procalcitonin level as CXR without infiltrate and recently completed course of doxycycline Duonebs Solumedrol 40mg IV Q8H for now, plan to transition to oral prednisone when able Incentive spirometry, flutter valve Continue Trelegy Continue home oxygen, 2L via [place] On [place]sp[place] Q4 weeks. Last was 09/16/23 Appreciate pulmonary input and recommendation Has been started on Incruse and azithromycin for additional anti-inflammatory action Clinically a little better since admission Will need longer tapering of steroid on discharge Clinically much better today Has been saturating on 2 L of nasal cannula to maintain saturation Likely be discharged tomorrow Tachycardia secondary to nebulized bronchodilator but has been improving Elevated troponin: Troponin: 16 EKG: sinus rhythm, no significant ST changes noted Chronic elevated troponin-did not show any increase in troponin EKG in am-no acute EKG changes DM type 2 (diabetes mellitus, type 2): A1c: 6.4 on 07/07/23 Diet controlled Monitor glucose-sugar has been stable Hypertension: Stable Continue lisinopril Hyperlipidemia: Continue atorvastatin Chronic low back pain: Continue gabapentin, tramadol prn Crohn's disease: On infliximab Q8 weeks. Next dose scheduled for 10/02/23 Obstructive sleep apnea syndrome: Continue CPAP HS GERD (gastroesophageal reflux disease): Continue PPI Depression: Continue bupropion, duloxetine DVT Prophylaxis Lovenox SQ Full Code as per discussion with pt Follows with Dr Mekhi Reyes for routine care Admission and Anticipated Discharge Date Admission Date: September 23, 2023 Subjective 09/24/2023 The patient was seen and examined in medical telemetry unit She has been feeling a little better since admission Still has wheezing and mild shortness of breath at rest No fever and or chills and no chest pain and her palpitation 09/25/2023 The patient was seen and examined in medical telemetry and She has been feeling much better Wheezing is improved and has minimal cough Saturating normally on 2 L of nasal cannula Review of Systems Review of Systems: All systems reviewed and are unremarkable except as noted below Physical Exam Physical Exam: Sitting at the edge of the bed with moderate shortness of breath at rest Constitutional: + ill appearing and average body habitus Eyes: PERRL, conjunctivae normal, anicteric sclerae ENMT: external ear and nose normal, oropharynx normal Neck: trachea midline, no thyromegaly Respiratory: + respiratory distress Auscultation: + diminished lung sounds, + crackles and + wheezes Cardiovascular: Rate/Rhythm: regular rate, regular rhythm and + tachycardic Heart Sounds: normal S1 and normal S2; no murmur Extremities: no edema Gastrointestinal (Abdomen): Inspection/Auscultation: normal bowel sounds; abdomen not distended Percussion/Palpation: abdomen soft; abdomen nontender Musculoskeletal: No acute arthritis involving any of the joint Neurologic: normal touch/pain/proprioception and moves all extremities; no focal motor deficits Psychiatric: A+Ox3, euthymic affect Lymphatic: no cervical or axillary lymphadenopathy Results & Data Results & Data Vital Signs (Past 12 Hours) Vital Signs Temp Pulse Pulse Resp BP Pulse Ox O2 Del Method 09/25/23 15:02 117 H 09/25/23 11:23 36.8 C 123 H 20 127/72 100 Nasal Cannula 09/25/23 08:03 128 H 09/25/23 07:43 36.8 C 115 H 20 125/76 93 Nasal Cannula 09/25/23 07:13 Nasal Cannula 09/25/23 07:12 118 H 20 96 Nasal Cannula O2 Flow Rate 09/25/23 15:02 09/25/23 11:23 2 09/25/23 08:03 09/25/23 07:43 2 09/25/23 07:13 2 09/25/23 07:12 2 Laboratory Results Short CBC 09/25/23 Range/Units 05:39 WBC 13.65 H (4.8-10.8) K/ul Hgb 12.1 (12.0-16.0) g/dl Hct 38.6 (37.0-47.0) % Plt Count 212 (130-400) K/uL BMP 09/25/23 05:39 Sodium 137 Potassium 4.9 Chloride 104 Carbon Dioxide 31 BUN 27 H Creatinine 1.11 Glucose 162 H Calcium 8.6 Medications Administered Current Inpatient Medications Acetaminophen (Acetaminophen 325 Mg Tab) 650 mg PO Q4H PRN PRN Reason: Pain or Fever Stop: 10/23/23 18:09 Last Admin: 09/24/23 18:08 Dose: 650 mg Albuterol (Albut/Ipratrop 3mg/0.5mg Neb 3 Ml Vial) 3 ml NEB Q2H PRN; Protocol PRN Reason: Shortness Of Breath Or Wheezing Stop: 10/23/23 22:42 Albuterol (Albut/Ipratrop 3mg/0.5mg Neb 3 Ml Vial) 3 ml NEB QIDR PRN; Protocol PRN Reason: SOB and wheezing Stop: 10/23/23 18:59 Atorvastatin Calcium (Atorvastatin 40 Mg Tab) 40 mg PO HS [facility] Stop: 10/23/23 20:59 Last Admin: 09/24/23 19:58 Dose: 40 mg Azithromycin (Azithromycin 250 Mg Tab) 250 mg PO QAM JESSENIA Stop: 09/28/23 09:01 Last Admin: 09/25/23 07:53 Dose: 250 mg Budesonide (Budesonide 0.5 Mg/2 Ml Vial (Pulmicort)) 0.5 mg INH BIDR JESSENIA Stop: 10/24/23 18:59 Last Admin: 09/25/23 07:06 Dose: 0.5 mg Bupropion HCl (Bupropion Xl 150 Mg Tabcr) 150 mg PO QAM [facility] Stop: 10/24/23 08:59 Last Admin: 09/25/23 07:54 Dose: 150 mg Celecoxib (Celecoxib 100 Mg Cap) 100 mg PO DAILY [facility] Stop: 10/24/23 08:59 Last Admin: 09/25/23 07:51 Dose: 100 mg Duloxetine HCl (Duloxetine Hcl 60 Mg Cap) 60 mg PO QAM [facility] Stop: 10/24/23 08:59 Last Admin: 09/25/23 07:52 Dose: 60 mg Enoxaparin Sodium (Enoxaparin Inj 40 Mg/0.4 Ml Syr) 40 mg SQ Q24H JESSENIA Stop: 10/23/23 18:59 Last Admin: 09/24/23 18:19 Dose: 40 mg Formoterol Fumarate (Formoterol 20 Mcg/2 Ml Vial) 20 mcg INH BIDR [facility] Stop: 10/24/23 18:59 Last Admin: 09/25/23 07:06 Dose: 20 mcg Gabapentin (Gabapentin 800 Mg Tab) 800 mg PO TID [facility] Stop: 10/23/23 20:59 Last Admin: 09/25/23 14:04 Dose: 800 mg Guaifenesin (Guaifenesin 600 Mg Tabcr) 600 mg PO Q12 [facility] Stop: 10/24/23 20:59 Last Admin: 09/25/23 07:54 Dose: 600 mg Methylprednisolone 40 mg/ (Syringe) 0.64 mls @ 1.5 mls/min IV Q12 [facility] Stop: 10/25/23 20:59 Lisinopril (Lisinopril 2.5 Mg Tab) 2.5 mg PO DAILY [facility] Stop: 10/24/23 08:59 Last Admin: 09/25/23 07:52 Dose: 2.5 mg Ondansetron HCl (Ondansetron Inj 2 Mg/Ml 2 Ml Vial) 4 mg IV Q6H PRN PRN Reason: Nausea Stop: 10/23/23 18:09 Pantoprazole Sodium (Pantoprazole 40 Mg Tab) 40 mg PO QAM [facility] Stop: 10/24/23 08:59 Last Admin: 09/25/23 07:53 Dose: 40 mg Polyethylene Glycol (Polyethylene (Miralax) 17 Gm Pack) 17 gm PO DAILY PRN PRN Reason: Constipation Stop: 10/23/23 18:09 Tramadol HCl (Tramadol Hcl 50 Mg Tablet) 50 mg PO BID PRN PRN Reason: Mod-Sev Pain (Scale 4-10) Stop: 10/23/23 18:09 Trazodone HCl (Trazodone Hcl 50 Mg Tab) 50 mg PO HS [facility] Stop: 10/23/23 20:59 Last Admin: 09/24/23 22:04 Dose: 50 mg Umeclidinium [place] (Umeclidinium [place] 62.5mcg/Blister 7 Puffs/Inhaler) 1 puffs INH DAILY [facility] Stop: 10/25/23 08:59 Last Admin: 09/25/23 07:54 Dose: 1 puffs Vitamin D (Cholecalciferol 25 Mcg (1000 Units) Tab) 25 mcg PO QAM [facility] Stop: 10/24/23 08:59 Last Admin: 09/25/23 07:52 Dose: 25 mcg (11) GERD (gastroesophageal reflux disease) Esophagitis presence: esophagitis presence not specified Qualified Code(s): K21.9 - Gastro-esophageal reflux disease without esophagitis
[2023-09-25] MEDS: methylPREDNISolone 40 MG in SYRINGE 0 ML IV SCH (21:06)
--- NOTE | 2023-09-26 08:07 | Pulmonology Progress Note ---
Date of Service September 26, 2023 Assessment & Plan (1) Acute exacerbation of chronic obstructive pulmonary disease: (2) Shortness of breath: (3) Eosinophilic asthma: (4) Chronic respiratory failure with hypoxia: (5) LALO (obstructive sleep apnea): Plan IMPRESSION: 63-year-old female with a significant pulmonary history of COPD with emphysema, eosinophilic asthma, obstructive sleep apnea, chronic respiratory failure with hypoxia, and prior history of smoking who presents in the setting of COPD with exacerbation and worsening dyspnea. CTA chest 09/25/2023 personally reviewed: Centrilobular emphysema appreciated bilaterally Minimal dependent atelectasis on the right lower lobe No significant mediastinal lymphadenopathy RECOMMENDATIONS: --Asthma-COPD COPD with exacerbation Completed a course of doxycycline and prednisone with improvement On Trelegy 200 at home Respiratory bio fire as well as procalcitonin negative -- Shortness of breath Secondary to COPD with exacerbation. -- Eosinophilic asthma On [place]sp[place] -- Chronic respiratory failure with hypoxia Patient is back to her baseline requirement of 2 L nasal cannula. -- Obstructive sleep apnea Continue with home CPAP settings at night. Plan: Patient still has persistent tachycardia in the 120s. I think consideration of diltiazem to control the heart rate should be made as patient will develop tachycardia induced cardiomyopathy if her heart rate continues to stay like this. Transition Solu-Medrol to prednisone 40 mg for 4 days followed by 20 mg for 4 days then 10 mg for 3 days. Follow-up IgE On discharge continue with Trelegy 200 and recommend addition of azithromycin 250 mg [id number] on discharge on top of Trelegy [address] Agee Please note the above document was generated using voice recognition software. It may contain grammatical, syntax or spelling errors.Any formal questions or concerns about the content, text or information contained within the body of this dictation should be directly addressed to the provider for clarification. Admission and Anticipated Discharge Date Admission Date: September 23, 2023 Subjective Patient seen and examined at bedside. No acute distress, notable symptoms overnight She is feeling much better. Breathing is improved. She was saturating 97% on room air with heart rate of 121 Bringing up clear phlegm. No hemoptysis Asking if she could go home today Review of Systems 2 Review of Systems: All systems reviewed & are unremarkable except as noted in Subjective Physical Exam 2 Physical Exam: Constitutional: No acute distress HEENT: EOMI, PERRLA Respiratory system: Decreased air entry bilaterally, no wheeze, no rhonchi, no crackles CVS: S1-S2 positive, no murmurs or gallops, tachycardia Abdomen: Soft, nontender, nondistended, positive bowel sounds x4 Extremities: +2 pulses bilaterally radialis/ dorsalis pedis, no cyanosis, no edema Neuro: Awake alert oriented x3 Psych: Normal mood and affect G/U: No edema Skin: no rashes, warm and dry Lymphatic: no cervical or axillary lymphadenopathy Results & Data Results & Data Vital Signs (Past 12 Hours) Vital Signs Temp Pulse Pulse Pulse Resp BP Pulse Ox 09/26/23 07:54 36.7 C 111 H 20 137/83 95 09/26/23 07:37 110 H 20 96 09/26/23 04:51 09/26/23 03:44 36.7 C 117 H 20 128/84 96 09/26/23 03:06 112 H 09/26/23 00:12 36.6 C 117 H 20 147/85 H 94 09/25/23 20:17 36.9 C 116 H 20 138/90 100 O2 Del Method O2 Flow Rate 09/26/23 07:54 Nasal Cannula 2 09/26/23 07:37 Nasal Cannula 2 09/26/23 04:51 Nasal Cannula 2 09/26/23 03:44 Nasal Cannula 2 09/26/23 03:06 09/26/23 00:12 Nasal Cannula 2 09/25/23 20:17 Nasal Cannula 2 Laboratory Results 09/25/23 05:39 09/25/23 05:39 PG Care Time/CCT Total # of Minutes Spent Total Time Spent with Patient: Total time spent is greater than 50% in coordination of care (as documented) at patient's floor/unit and/or counseling patient: Coding Level of Care Code 62326 SUB INP/OBS CARE 2/35MIN Diagnoses Acute exacerbation of chronic obstructive pulmonary disease J44.1 Shortness of breath R06.02 Eosinophilic asthma J82.83 Chronic respiratory failure with hypoxia J96.11 LALO (obstructive sleep apnea) G47.33
--- NOTE | 2023-09-26 11:46 | Hospitalist Progress Note ---
Date of Service September 26, 2023 Assessment & Plan (1) Acute exacerbation of chronic obstructive pulmonary disease: (2) Chronic respiratory failure with hypoxia: (3) Eosinophilic asthma: (4) Elevated troponin: (5) DM type 2 (diabetes mellitus, type 2): (6) Hypertension: (7) Hyperlipidemia: (8) Crohns disease: (9) Chronic low back pain: (10) LALO (obstructive sleep apnea): (11) GERD (gastroesophageal reflux disease): (12) Depression: Plan: Acute COPD exacerbation Eosinophilic asthma Chronic hypoxic respiratory failure Patient is 63 year old female with PMH HTN, HLD, diet controlled DM II, Crohn's, asthma, COPD, chronic respiratory failure on 2L oxygen, depression, LALO, GERD, chronic pain presented to ER with c/o SOB x 3 weeks. Treated outpatient 09/02/2023 with doxycycline x 7 days, prednisone taper. 09/02/2023 CXR: Without acute findings. Still with SOB and wheezing, no further fevers. In ER afebrile, on chronic 2 L via nasal cannula with oxygen sats 95%. No leukocytosis. Negative respiratory panel. Lactate: WNL. procalcitonin: 0.02 CXR: Emphysema changes, no acute infiltrate In ER was given albuterol neb, Solu-Medrol 60 mg IV Will hold on antibiotics with low procalcitonin level as CXR without infiltrate and recently completed course of doxycycline Duonebs Solumedrol 40mg IV Q8H for now, plan to transition to oral prednisone when able Incentive spirometry, flutter valve Continue Trelegy Continue home oxygen, 2L via [place] On [place] Q4 weeks. Last was 09/16/23 Appreciate pulmonary input and recommendation Has been started on Incruse and azithromycin for additional anti-inflammatory action Clinically a little better since admission Will need longer tapering of steroid on discharge Clinically much better today Has been saturating on 2 L of nasal cannula to maintain saturation Likely be discharged tomorrow Tachycardia secondary to nebulized bronchodilator but has been improving Remains stable and without any symptoms She will be discharged home this afternoon-slow tapering of steroid and azithromycin as advised by the photofin[facility] laboratory worker She will have appointment with her PCP within 7 days Elevated troponin: Troponin: 16 EKG: sinus rhythm, no significant ST changes noted Chronic elevated troponin-did not show any increase in troponin EKG in am-no acute EKG changes DM type 2 (diabetes mellitus, type 2): A1c: 6.4 on 07/07/23 Diet controlled Monitor glucose-sugar has been stable Hypertension: Stable Continue lisinopril Hyperlipidemia: Continue atorvastatin Chronic low back pain: Continue gabapentin, tramadol prn Crohn's disease: On infliximab Q8 weeks. Next dose scheduled for 10/02/23 Obstructive sleep apnea syndrome: Continue CPAP HS GERD (gastroesophageal reflux disease): Continue PPI Depression: Continue bupropion, duloxetine DVT Prophylaxis Lovenox SQ Full Code as per discussion with pt Follows with Dr Mekhi Reyes for routine care Admission and Anticipated Discharge Date Admission Date: September 23, 2023 Subjective 09/24/2023 The patient was seen and examined in medical telemetry unit She has been feeling a little better since admission Still has wheezing and mild shortness of breath at rest No fever and or chills and no chest pain and her palpitation 09/25/2023 The patient was seen and examined in medical telemetry and She has been feeling much better Wheezing is improved and has minimal cough Saturating normally on 2 L of nasal cannula 09/26/2023 The patient was seen and examined in medical telemetry unit She has been much better without any significant symptom No wheezing and no shortness of breath She has been ambulating without any difficulties Review of Systems Review of Systems: All systems reviewed and are unremarkable except as noted below Physical Exam Physical Exam: Sitting at the edge of the bed with moderate shortness of breath at rest Constitutional: + ill appearing and average body habitus Eyes: PERRL, conjunctivae normal, anicteric sclerae ENMT: external ear and nose normal, oropharynx normal Neck: trachea midline, no thyromegaly Respiratory: no respiratory distress Auscultation: lungs clear to auscultation bilaterally Cardiovascular: Rate/Rhythm: regular rate, regular rhythm and + tachycardic Heart Sounds: normal S1 and normal S2; no murmur Extremities: no edema Gastrointestinal (Abdomen): Inspection/Auscultation: normal bowel sounds; abdomen not distended Percussion/Palpation: abdomen soft; abdomen nontender Neurologic: normal touch/pain/proprioception and moves all extremities; no focal motor deficits Psychiatric: A+Ox3, euthymic affect Lymphatic: no cervical or axillary lymphadenopathy Results & Data Results & Data Vital Signs (Past 12 Hours) Vital Signs Temp Pulse Pulse Pulse Resp BP BP 09/26/23 10:48 36.7 C 110 H 111 H 20 148/89 H 137/83 09/26/23 09:00 09/26/23 07:54 36.7 C 111 H 20 137/83 09/26/23 07:37 110 H 20 09/26/23 04:51 09/26/23 03:44 36.7 C 117 H 20 128/84 09/26/23 03:06 112 H 09/26/23 00:12 36.6 C 117 H 20 147/85 H Pulse Ox O2 Del Method O2 Flow Rate 09/26/23 10:48 95 09/26/23 09:00 Nasal Cannula 2 09/26/23 07:54 95 Nasal Cannula 2 09/26/23 07:37 96 Nasal Cannula 2 09/26/23 04:51 Nasal Cannula 2 09/26/23 03:44 96 Nasal Cannula 2 09/26/23 03:06 09/26/23 00:12 94 Nasal Cannula 2 (11) GERD (gastroesophageal reflux disease) Esophagitis presence: esophagitis presence not specified Qualified Code(s): K21.9 - Gastro-esophageal reflux disease without esophagitis
--- NOTE | 2023-09-27 08:16 | Discharge Summary ---
Date of Service September 26, 2023 Admission HPI Per Admitting Provider Patient is 63 year old female with PMH HTN, HLD, diet controlled DM II, Crohn's, asthma, COPD, chronic respiratory failure on 2L oxygen, depression, LALO, GERD, chronic pain presented to ER with c/o SOB x 3 weeks. History obtained from patient, outpatient and inpatient chart review. Patient states beginning of August 2023 she started with fever, cough, congestion, sore throat. Was seen outpatient 09/02/2023 and was treated with doxycycline x 7 days, prednisone taper for possible pneumonia. 09/02/2023 CXR: Without acute findings. Patient states finished doxycycline and prednisone. She reports fevers have resolved and has not had any recurrent fever however continues with cough and shortness of breath. Still with cough productive yellow and still with SOB and wheezing. Typically uses nebs twice day but past couple of weeks using 4 times daily for wheezing with limited relief. Reports intermittent chest tightness. Today increased SOB and turned her home O2 up to 5L on her way in to ER today. Patient states some nausea, vomited once today but states is feeling improved now. Denies abdominal pain. Denies known ill contacts. Denies hematemesis, diarrhea, constipation, MANSFIELD, dizziness, syncope, vision changes, neck pain, palpitations, hemoptysis, sore throat, choking, abdominal pain, paresthesias, weakness, extremity weakness, extremity edema, rashes, urinary symptoms. Admission Exam Per Admitting Provider Physical Exam: General: no distress, WDWN Head: normocephalic, atraumatic Eyes: conjunctiva non-injected, anicteric ENT: normal inspection external ears, nose, mucous membranes moist Neck: supple, trachea midline Lungs: no respiratory distress on current 2L O2 via NC, diminished breath sounds with scattered wheezing throughout no rhonchi/rales noted CV: RRR, no murmur, no pretibial edema Abd: normal BS, soft, non-tender Ext: no cyanosis, no calf tenderness Neuro: A&O x 3, no focal deficits noted, normal affect Skin: warm, dry Principal Diagnosis Acute exacerbation of COPD, chronic respiratory failure on home oxygen, eosinophilic asthma, diabetes type 2, LALO Discharge Exam Sitting at the edge of the bed with moderate shortness of breath at rest Constitutional + ill appearing and average body habitus Eyes PERRL, conjunctivae normal, anicteric sclerae ENMT external ear and nose normal, oropharynx normal Neck trachea midline, no thyromegaly Respiratory no respiratory distress Auscultation: lungs clear to auscultation bilaterally, + diminished lung sounds, + crackles and + wheezes Cardiovascular Rate/Rhythm: regular rate, regular rhythm and + tachycardic Heart Sounds: normal S1 and normal S2; no murmur Extremities: no edema Gastrointestinal (Abdomen) Inspection/Auscultation: normal bowel sounds; abdomen not distended Percussion/Palpation: abdomen soft; abdomen nontender Neurologic normal touch/pain/proprioception and moves all extremities; no focal motor deficits Psychiatric A+Ox3, euthymic affect Lymphatic no cervical or axillary lymphadenopathy Discharge Data Allergies Allergy/AdvReac Type Severity Reaction Status Date / Time adhesive tape AdvReac Severe TEARS SKIN Verified 09/23/23 14:57 Consultations 09/23/23 15:03 ED Decision to Admit Stat 09/24/23 08:00 Consult Pulmonology Routine Ordered Studies 09/24/23 16:30 CT angio chest PE protocol Routine Hospital Course (1) Acute exacerbation of chronic obstructive pulmonary disease: (2) Chronic respiratory failure with hypoxia: (3) Eosinophilic asthma: (4) Elevated troponin: (5) DM type 2 (diabetes mellitus, type 2): (6) Hypertension: (7) Hyperlipidemia: (8) Crohns disease: (9) Chronic low back pain: (10) LALO (obstructive sleep apnea): (11) GERD (gastroesophageal reflux disease): (12) Depression: Acute COPD exacerbation Eosinophilic asthma Chronic hypoxic respiratory failure Patient is 63 year old female with PMH HTN, HLD, diet controlled DM II, Crohn's, asthma, COPD, chronic respiratory failure on 2L oxygen, depression, LALO, GERD, chronic pain presented to ER with c/o SOB x 3 weeks. Treated outpatient 09/02/2023 with doxycycline x 7 days, prednisone taper. 09/02/2023 CXR: Without acute findings. Still with SOB and wheezing, no further fevers. In ER afebrile, on chronic 2 L via nasal cannula with oxygen sats 95%. No leukocytosis. Negative respiratory panel. Lactate: WNL. procalcitonin: 0.02 CXR: Emphysema changes, no acute infiltrate In ER was given albuterol neb, Solu-Medrol 60 mg IV Will hold on antibiotics with low procalcitonin level as CXR without infiltrate and recently completed course of doxycycline Duonebs Solumedrol 40mg IV Q8H for now, plan to transition to oral prednisone when able Incentive spirometry, flutter valve Continue Trelegy Continue home oxygen, 2L via NC On Tezspire Q4 weeks. Last was 09/16/23 Appreciate pulmonary input and recommendation Has been started on Incruse and azithromycin for additional anti-inflammatory action Clinically a little better since admission Will need longer tapering of steroid on discharge Clinically much better today Has been saturating on 2 L of nasal cannula to maintain saturation Likely be discharged tomorrow Tachycardia secondary to nebulized bronchodilator but has been improving Remains stable and without any symptoms She will be discharged home this afternoon-slow tapering of steroid and azithromycin as advised by the overlock sleeve setter She will have appointment with her PCP within 7 days Elevated troponin: Troponin: 16 EKG: sinus rhythm, no significant ST changes noted Chronic elevated troponin-did not show any increase in troponin EKG in am-no acute EKG changes DM type 2 (diabetes mellitus, type 2): A1c: 6.4 on 07/07/23 Diet controlled Monitor glucose-sugar has been stable Hypertension: Stable Continue lisinopril Hyperlipidemia: Continue atorvastatin Chronic low back pain: Continue gabapentin, tramadol prn Crohn's disease: On infliximab Q8 weeks. Next dose scheduled for 10/02/23 Obstructive sleep apnea syndrome: Continue CPAP HS GERD (gastroesophageal reflux disease): Continue PPI Depression: Continue bupropion, duloxetine DVT Prophylaxis Lovenox SQ Full Code as per discussion with pt Follows with Dr Mekhi Reyes for routine care Total Time Total Time Spent Total Time Spent (In Minutes): 35 minutes Discharge Plan Discharge Items Patient Disposition: Home - Self-Care Reason For Visit: COPD EXAC Discharge Diagnosis: Acute exacerbation of COPD, chronic respiratory failure on home oxygen, eosinophilic asthma, diabetes type 2, LALO Condition on Discharge: Fair Activity: Resume your previous activity Non-emergency contact: Primary Care Provider Call non-emergency contact if: you have any medication questions and your symptoms worsen Follow-up/Referrals: Mekhi Reyes MD [Primary Care Provider] - (Date & Time 10/02/2023 11:00 AM Provider Mekhi Reyes DO Department [facility] ) Diet: Carb Consistent or DM2 Addtl Attending Provider Instructions: Please take precautions to avoid falls Take your medications as advised Take prednisone taper as advised Please keep appointments with the healthcare providers Pending Studies at Discharge: No Stand-Alone Forms: [facility] [address], Smoking Cessation Medications and DC Order Prescriptions: New azithromycin 250 mg Tablet 250 mg PO UD Qty: 18 0RF Rx Instructions: Thursday, Thursday and Thursday prednisone 10 mg tablet 10 mg PO DIRECTED Qty: 30 0RF Rx Instructions: 4 p.o. daily for 4 days, 3 p.o. daily for 3 days, 2 p.o. daily for 3 days, 1 p.o. daily for 3 days Continued pantoprazole [Protonix] 40 mg tablet,delayed release (DR/EC) 40 mg PO QAM Qty: 90 3RF infliximab [Remicade] 100 mg recon soln See Rx Instructions IV Q8WK Qty: 8 8RF Rx Instructions: DUE OCTOBER 02, 2023. 10 mg/kg intravenously every 8 weeks; albuterol sulfate 90 mcg/actuation HFA aerosol inhaler 2 puff inhalation Q4H PRN (Reason: Shortness Of Breath Or Wheezing) Qty: 8.5 5RF Trelegy Ellipta 200-62.5-25 mcg blister with device 1 ea INHALATION QAM Qty: 60 4RF (DME) Portable Oxygen E0431 Misc See Rx Instructions .MEDSUPPLY Qty: 1 0RF Rx Instructions: Oxygen 2 liters continuous via nasal cannula on exertion with portable concentrator. ANA MARIA 99 Tezspire 210 mg/1.91 mL (110 mg/mL) pen injector 210 mg subcut Q4WK Qty: 1.91 11RF Rx Instructions: Inject 210 mg Subcutaneously every 4 weeks Approved via [employer] from 05/08/23-11/07/23 cholecalciferol (vitamin D3) [Vitamin D3] 1,000 unit Capsule 1,000 unit PO QAM bupropion HCl 150 mg tablet extended release 24 hr 150 mg PO QAM Women's One Daily 18 mg iron-400 mcg-500 mg Ca Tablet 1 tab PO QAM tramadol 50 mg tablet 50 mg PO BID PRN (Reason: Pain) gabapentin 800 mg tablet 800 mg PO TID celecoxib 100 mg capsule 100 mg PO DAILY duloxetine 60 mg capsule,delayed release(DR/EC) 60 mg PO QAM trazodone 50 mg tablet 50 mg PO HS atorvastatin 40 mg tablet 40 mg PO HS lisinopril 2.5 mg tablet 2.5 mg PO DAILY ipratropium-albuterol 0.5 mg-3 mg(2.5 mg base)/3 mL solution for nebulization 3 ml inhalation QID PRN (Reason: Shortness Of Breath Or Wheezing) benzonatate 100 mg Capsule 100 mg PO TID PRN (Reason: cough) Qty: 30 0RF Discharge Orders: Discharge Order (Routine); Ordered 09/26/23 Ordered By: Jay Valentin/Other Patient Handouts: COPD Diabetes, Asthma COPD Trigger Control Admission Data Admit Date/Time: 09/23/23 16:10 Attending Provider: Jay Agee Admit Provider: Shyla Bowman Primary Care Provider: Mekhi Reyes Other Providers: Shyla Bowman; Buck Green Other Interventions: Discharge Summary Assessment (RN) Last Done: 09/26/23 12:02
== END 2023-09-26 13:22 | disposition home or self-care (01) ==
LOC: EDINP 11:15 → ED 11:15 → SUATTDRO 16:10 → 2N 18:10
DX: Z79.899 Other long term (current) drug therapy; Z99.81 Dependence on supplemental oxygen; M54.50 Low back pain, unspecified; Z91.048 Other nonmedicinal substance allergy status; Z79.51 Long term (current) use of inhaled steroids; Z79.1 Long term (current) use of non-steroidal anti-inflammatories (NSAID); E11.9 Type 2 diabetes mellitus without complications; R79.89 Other specified abnormal findings of blood chemistry; J96.11 Chronic respiratory failure with hypoxia; J82.83 Eosinophilic asthma; I10 Essential (primary) hypertension; K50.90 Crohn's disease, unspecified, without complications; E78.5 Hyperlipidemia, unspecified; K21.9 Gastro-esophageal reflux disease without esophagitis; Z87.891 Personal history of nicotine dependence; F32.A Depression, unspecified; J43.9 Emphysema, unspecified; G89.29 Other chronic pain; G47.33 Obstructive sleep apnea (adult) (pediatric)

== ENCOUNTER 2023-10-21 15:47 | Inpatient (IN) ==
--- NOTE | 2023-10-21 16:28 | ED Triage Note ---
Date of Service October 21, 2023 Provider in Triage Author: Homero Lam History of Present Illness This patient was briefly evaluated while in triage. An abbreviated physical exam was performed. This patient is a 63-year-old Female who presents to the ED for evaluation of acute headache that started at 3 AM this morning. Patient also reports persistent shortness of breath, with history of COPD. The patient reports that the headache did wake her up this morning. Patient denies any recent head injuries or infections. The patient was admitted here recently for a COPD exacerbation. Physical Exam CONSTITUTIONAL: Healthy and well nourished. Patient appears in mild discomfort. HEENT: No scleral icterus or conjunctival injection. NECK: Full active range of motion without discomfort. LYMPHATICS: No cervical chain adenopathy. RESPIRATORY: Lung sounds distant without any obvious crackles, rhonchi or wheezing. CARDIOVASCULAR: Tachycardic rhythm with no murmurs, rubs or gallops. GASTROINTESTINAL: Bowel sounds present in all quadrants. HEMATOLOGIC: No ecchymosis or petechiae. PSYCHIATRIC: Positive affect. NEUROLOGIC: No focal neurologic deficits noted. Initial orders for labs and / or imaging were placed and patient was placed in the waiting area until a bed is available. Please see further documentation for the full ED course.
[2023-10-21 17:04] LABS: Base Excess VBG 5.6 mEq/L; HCO3 VBG 34 mmol/L; Oxygen Saturation VBG < 60.0 %; PCO2 VBG 68 mmHg (38-50); PO2 VBG < 20 mmHg; pH VBG 7.31 (7.36-7.41)
[2023-10-21 17:18] LABS: Basophils # (auto) 0.03 K/uL (0.00-0.20); Basophils % (auto) 0.4 %; Eosinophils # (auto) 0.22 K/uL (0.00-0.50); Eosinophils % (auto) 2.8 %; Hematocrit (blood only) 39.9 % (37.0-47.0); Immature Granulocytes # (auto) 0.05 K/uL (0.01-0.20); Immature Granulocytes % (auto) 0.6 %; Lymphocytes % (auto) 28.4 %; Mean Corpuscular Hemoglobin 28.2 pg (25.0-34.0); Mean Corpuscular Hgb Conc 30.1 g/dL (32.0-36.0); Mean Corpuscular Volume 93.7 fL (80.0-100.0); Monocytes # (auto) 0.68 K/uL (0.11-0.59); Monocytes % (auto) 8.8 %; Neutrophils # (auto) 4.58 K/uL (1.40-6.50); Platelet Count 224 K/uL (130-400); RDW Coefficient of Variation 12.6 % (11.5-14.5); RDW Standard Deviation 43.1 fL (36.4-46.3); Red Blood Count 4.26 M/uL (4.20-5.40); White Blood Count 7.76 K/ul (4.8-10.8)
[2023-10-21 17:33] LABS: Albumin Globulin Ratio 1.2 (0.9-2); Albumin Level 3.6 gm/dl (3.4-5.0); BUN Creatinine Ratio 8.3 (10-20); Bilirubin,Total 0.4 mg/dl (0.2-1.0); Calcium 8.5 mg/dl (8.6-10.3); Creatinine Clr Calc Pharmacy 57.5 ml/min; Est GFR (African American) 64.2 ml/min; Est GFR (Non-African American) 55.4 ml/min; Globulin 2.9 gm/dl (2.5-4.0); Magnesium 1.9 mg/dl (1.7-2.4); Total Protein 6.5 gm/dl (6.0-8.3)
--- NOTE | 2023-10-21 17:39 | XRay Report ---
XR chest 1V portable CLINICAL HISTORY: Dyspnea. COMPARISON STUDY: Chest CT September 25, 2023. FINDINGS: Lung volumes are normal. Lungs are clear. There is no pneumothorax or pleural effusion. Car diac size is normal. Mediastinal contours are normal. There is no evidence for pulmonary edema. Elect ronic device projects over the left chest. IMPRESSION: No acute cardiopulmonary findings. ACT 112: Negative or not required by law. Electronically signed by: Hector Ferrera M.D. 10/21/2023 5:37 PM
[2023-10-21 17:40] LABS: Troponin I High Sensitivity 14.1 pg/ml (0-14)
[2023-10-21 17:53] LABS: INR 0.9 (0.9-1.1); Partial Thromboplastin Time 27 Seconds (21-31); Prothrombin Time 10.3 Seconds (9.0-12.0)
[2023-10-21] MEDS: OPTIRAY 320 125ml IV ONE (19:00)
--- NOTE | 2023-10-21 19:20 | CT Scan Report ---
Exam(s): CT HEAD Without Contrast EXAM: CT Head Without Intravenous Contrast CLINICAL HISTORY: Reason for exam: MANSFIELD. TECHNIQUE: Axial computed tomography images of the head/brain without intravenous contrast. CTDI is 37 mGy and DLP is 546.36 mGy-cm. Automated exposure control was utilized for the study. A dose lowering technique was utilized adhering to the principles of ALARA. COMPARISON: No relevant prior studies available. FINDINGS: Brain: There is mild generalized parenchymal volume loss with periventricular and deep cerebral white matter hypoattenuation, compatible with chronic small vessel ischemic change. Lewis-white matter differentiation is maintained. There is no hemorrhage, mass effect, parenchymal edema, or midline shift. Ventricles: Unremarkable. No hydrocephalus. Bones/joints: Calvarium is intact. No acute fracture. Soft tissues: Unremarkable. Vasculature: Intracranial atherosclerosis. Sinuses: Unremarkable as visualized. Mastoid air cells: Unremarkable as visualized. No mastoid effusion. IMPRESSION: No acute intracranial process. Electronically signed by: Laureen Trejo M.D. 10/21/23 19:19 PM
--- NOTE | 2023-10-21 19:22 | CT Scan Report ---
Exam(s): CTA CHEST IV Amt: 116 ml optiray 320 EXAM: CT Angiography Chest With Intravenous Contrast CLINICAL HISTORY: Reason for exam: Dyspnea. TECHNIQUE: Axial computed tomographic angiography images of the chest with intravenous contrast. CTDI is 24.23 mGy and DLP is 818.83 mGy-cm. Automated exposure control was utilized for the study. A dose lowering technique was utilized adhering to the principles of ALARA. MIP reconstructed images were created and reviewed. COMPARISON: No relevant prior studies available. FINDINGS: Pulmonary arteries: Adequate pulmonary artery opacification. Normal caliber main pulmonary artery. No pulmonary embolism. Aorta: No acute findings. No aortic aneurysm or dissection. Lungs: No airspace consolidation or pulmonary mass. Emphysema. Pleural space: Unremarkable. No significant effusion. No pneumothorax. Heart: Minor coronary artery atherosclerosis. No cardiomegaly or RV strain. No pericardial effusion. Bones/joints: No acute fracture. No dislocation. Soft tissues: Unremarkable. Lymph nodes: Unremarkable. No adenopathy. IMPRESSION: 1. Emphysematous changes noted. Pulmonary emphysema is an independent risk factor for lung cancer. Consider patient evaluation for low-dose cancer screening protocol. 2. No evidence of acute pulmonary embolism. Electronically signed by: Laureen Trejo M.D. 10/21/23 19:21 PM
--- NOTE | 2023-10-21 20:11 | Emergency Department Note ---
Impression & Plan Acute exacerbation of chronic obstructive pulmonary disease ADMIT ED Provider Note HPI: History obtained from patient. The patient is a 63-year-old female who presents the emergency department with chief complaint of shortness of breath for the past week and a headache that started at 3 AM. Patient states she does have history of COPD, she is on 2 L nasal cannula oxygen at baseline. Patient states that her shortness of breath has been getting progressively worse over the past week, she denies any fever, states she has had a slight cough. Patient states that the headache that she is experiencing woke her from sleep at about 3 AM, she states she has had similar headaches in the past but not to this degree of severity. On arrival here to the ED the patient is otherwise alert and oriented x 3, blood pressure stable, patient was noted to be hypoxic at 87% on her baseline nasal cannula oxygen and therefore this was increased to 4 L with good improvement. Patient is afebrile on arrival. ROS: - Per HPI Differential Diagnosis: COPD exacerbation, intracranial hemorrhage to include subarachnoid hemorrhage, pneumonia, pulmonary edema, acute bronchitis/acute bronchospasm, migraine complex, tension headache, amongst other potential pathologies. *Outpatient medications and allergy history reviewed. PE: General: Alert HEENT: Normocephalic, trachea midline Eyes: Extraocular eye movement is intact, no scleral erythema Pulmonary: Diminished breath sounds bilaterally with moderate expiratory wheezing bilaterally and throughout Cardio: Regular rate and rhythm GI: Abdomen is soft to palpation : No suprapubic tenderness MSK: No evidence of trauma or malformation of the extremities, no edema Skin: No evidence of rash Neuro: Alert, no focal deficits Psychiatric: Cooperative INDEPENDENT INTERPRETATIONS: library monitor: (As interpreted by myself): - An order was placed for continuous cardiac monitoring - Patient was noted to be in sinus rhythm with a rate of 95 EKG: (As interpreted by myself): Rate: 103 Rhythm: Sinus tachycardia Intervals: Within normal limits ST changes: No ST elevation Time: 1650 Chest x-ray: (As interpreted by myself): Emphysematous changes without focal infiltrate Interventions provided in ED: -DuoNeb breathing treatment, IV Solu-Medrol, IV Tylenol Medical Decision Making: IV was established and lab work obtained, patient was placed on monitoring analyst. Lab work shows no leukocytosis, hemoglobin is normal, platelet count is normal, venous blood gas shows mild respiratory acidosis with pH of 7.31, pCO2 is elevated at 68, CMP does not show any critical findings, troponin is mildly elevated at 14.1, this appears to be better than the patient's baseline, patient denies any current chest pain, low suspicion for ACS. BNP is normal, low suspicion for acute CHF. CT imaging of the head does not show any evidence of any acute intracranial process, CT imaging of the chest with angiography was ordered from triage and shows emphysema without focal infiltrate, no evidence of pulmonary embolism. Overall, I feel the patient's presentation is most consistent with an acute COPD exacerbation. She was given DuoNeb breathing treatment and IV Solu-Medrol here in the ED. Given the patient's presenting hypoxia despite her normal nasal cannula oxygen, she will be admitted to the hospitalist service for further care. I discussed the patient's presentation with the on-call hospitalist, Dr. Eric, and the patient was placed for admission in stable condition. Consultants/Discussions held with other healthcare providers: -Hospitalist, Dr. Eric Disposition discussion held by myself with: -Patient * CRITICAL CARE TIME: ( 38 ) minutes -Stabilization of hypoxia at 87% despite 2 L nasal cannula oxygen requiring increasing baseline oxygen for improvement, time spent at the bedside, interpretation of labs and diagnostic studies, discussion with other physicians and arrangement of admission. Diagnosis: 1. Hypoxia, acute 2. COPD exacerbation, acute 3. Headache, acute, nonspecific, non-intractable 4. Elevated high-sensitivity troponin level, acute, mild Disposition: Admission Андрей Gold DO Emergency Medicine Past Med/Surg History Problem List (Updated 10/22/23 @ 00:30 by Андрей Gold DO) Acute exacerbation of chronic obstructive pulmonary disease (Acute) Acute exacerbation of chronic obstructive pulmonary disease (Acute) Shortness of breath (Acute) Eosinophilic asthma Acute viral bronchitis Elevated troponin Hypomagnesemia Hypokalemia Influenza A (Acute) Traumatic open wound of left lower leg with delayed healing (Acute) Chronic respiratory failure with hypoxia H/O of biological therapy treatment Elevated IgE level Acute asthma exacerbation Cat scratch of face Acute respiratory acidosis Sinus tachycardia Acute respiratory failure with hypoxia and hypercarbia GERD (gastroesophageal reflux disease) (Chronic) Recurrent syncope (Acute) Former smoker (Acute) COPD with emphysema Obstructive sleep apnea syndrome Crohns disease Tubular adenoma of colon Colonic stricture COPD exacerbation Depression DM type 2 (diabetes mellitus, type 2) NIDDM- DIET CONTROLLED LALO (obstructive sleep apnea) (Acute) CPAP Asthma (Chronic) Hypertension (Chronic) Hyperlipidemia (Chronic) Chronic low back pain (Chronic) Medical History Eosinophilic asthma Acute viral bronchitis Elevated IgE level Acute asthma exacerbation Leiomyoma of uterus History of COVID-19 diagnosed 03/17/21 @ [facility]--had difficulty breathing d/t COPD and had to hospitalized with oxygen for 1 week, pt states no lingering symptoms Crohns disease GERD (gastroesophageal reflux disease) DM type 2 (diabetes mellitus, type 2) NIDDM- DIET CONTROLLED Depression Anxiety History of migraine LALO (obstructive sleep apnea) CPAP DVT prophylaxis Asthma COPD (chronic obstructive pulmonary disease) well controlled w/ inhaler daily/prn, has not needed neb in "a while" Chronic low back pain Hyperlipidemia Hypertension Surgical History History of appendectomy S/P colon resection (07/04/21) Laparoscopic Assisted Right Colon Resection - Gildardo Woods MD, FACS 07/04/2021 History of esophagogastroduodenoscopy (EGD) History of tooth extraction History of tubal ligation History of D&C History of appendectomy History of lumbar surgery x 5; hardware present History of colonoscopy last 02/21/21 @ [facility] History of carpal tunnel surgery BL Family History Brother Diabetes Father , in early 60s from AMI Diabetes Myocardial infarction Mother , in her 60s; "natural" causes No problems noted. Other No family history of adverse response to anesthesia Denies family history of Inflammatory bowel disease Social History Smoking Status: Never smoker Tobacco Type: Cigarettes Age Started Using Tobacco: 16; Age Quit Using Tobacco: 43; packs per day: 2.5; Second Hand Exposure: No; Do You Dip or Chew Tobacco: No; Hx Alcohol Use: No Hx Substance Use: No Preferred Language: Malay Communication Ability: Effective Visual Impairment: Limited Hearing Ability: Normal Line Maintenance Supervisor Required: No Beliefs That Will Affect Care: None marital status: Current Living Situation: Spouse and Family Current Living Situation Comment: lives with and grandson current occupational status: retired current occupation: worked at [employer] How many Children do You have: 1 other: lives in [place] Feels Safe at Home: Yes Diet: diabetic Seatbelt Use: always Do you think of yourself as: straight/heterosexual Gender Identity: Female Assistive Devices: CPAP, Glasses, Nebulizer and Oxygen - Continuous Allergies Allergies Allergy/AdvReac Type Severity Reaction Status Date / Time adhesive tape AdvReac Severe TEARS SKIN Verified 10/21/23 20:24 Home Meds Home Medications Medication Instructions Recorded Confirmed cholecalciferol (vitamin D3) 25 1,000 unit PO QAM 08/25/18 10/21/23 mcg (1,000 unit) capsule (Vitamin D3) bupropion HCl 150 mg 24 hr tablet, 150 mg PO QAM 08/08/20 10/21/23 extended release multivit-iron 18 mg-folic acid 400 1 tab PO QAM 08/08/20 10/21/23 mcg-calcium 500 mg-minerals tablet (Women's One Daily) atorvastatin 40 mg tablet 40 mg PO HS 03/17/21 10/21/23 trazodone 50 mg tablet 50 mg PO HS 03/17/21 10/21/23 celecoxib 100 mg capsule 100 mg PO DAILY 04/04/23 10/21/23 duloxetine 60 mg capsule,delayed 60 mg PO QAM 04/04/23 10/21/23 release gabapentin 800 mg tablet 800 mg PO TID 04/04/23 10/21/23 tramadol 50 mg tablet 50 mg PO BID PRN Pain 04/04/23 10/21/23 ipratropium 0.5 mg-albuterol 3 mg 3 ml inhalation QID PRN Shortness 06/17/23 10/21/23 (2.5 mg base)/3 mL nebulization Of Breath Or Wheezing soln lisinopril 2.5 mg tablet 2.5 mg PO DAILY 06/17/23 10/21/23 azithromycin 250 mg tablet 250 mg PO 3XWK 10/21/23 10/21/23 Previous Rx's Medication Instructions Recorded pantoprazole 40 mg tablet,delayed 40 mg PO QAM gastritis #90 tabs 06/24/21 release (Protonix) Portable Oxygen #1 ea 05/06/23 albuterol sulfate 90 mcg/actuation 2 puff inhalation Q4H PRN 05/06/23 aerosol inhaler Shortness Of Breath Or Wheezing #8.5 grams fluticasone fur. 200 mcg-umeclid 1 ea inhalation QAM #60 ea 05/06/23 62.5 mcg-vilant 25 mcg inhalat.powder (Trelegy Ellipta) tezepelumab-ekko 210 mg/1.91 mL 210 mg (1.91 mL) subcut Q4WK #1.91 05/14/23 (110 mg/mL) subcutaneous pen mL injector (Tezspire) benzonatate 100 mg capsule 100 mg PO TID PRN cough #30 caps 06/20/23 infliximab 100 mg intravenous See Rx Instructions IV Q8WK #8 ea 10/12/23 solution (Remicade) Results & Data (ED) Vital Signs Vital Signs - 24 hr 10/21/23 16:26 10/21/23 16:30 10/21/23 16:50 Temperature 36.8 C Temperature Source Temporal Artery Scan Pulse Rate 105 H Pulse Rate [Right Finger] 68 Pulse Rhythm [Right Finger] Pulse Strength [Right Finger] Respiratory Rate 18 22 Respiratory Effort / Characteristics Non-Labored Spontaneous Non-Labored Spontaneous Respiratory Depth Normal Normal Respiratory Pattern Blood Pressure 120/70 Blood Pressure [Right Arm] 103/65 Blood Pressure Mean 86 Blood Pressure Mean [Right Arm] 77 Blood Pressure Position Sitting Blood Pressure Position [Right Arm] Pulse Oximetry 87 L 87 L 99 Oxygen Delivery Method Nasal Cannula Nasal Cannula Nasal Cannula Oxygen Flow Rate 2 2 4 Sepsis Recent Fever Within 48 Hours No Sepsis New/Unexplained Change in Mental Status N/A Sepsis Action Taken by Nursing No Action Required Oxygen Flow Rate - Titration 4 Pulse Oximetry Post Tiitration 92 10/21/23 18:31 10/21/23 19:54 10/21/23 19:54 Temperature Temperature Source Pulse Rate Pulse Rate [Right Finger] 62 105 H Pulse Rhythm [Right Finger] Regular Pulse Strength [Right Finger] Normal Respiratory Rate 16 18 Respiratory Effort / Characteristics Non-Labored Respiratory Depth Normal Normal Respiratory Pattern Regular Blood Pressure Blood Pressure [Right Arm] 107/68 115/59 L Blood Pressure Mean Blood Pressure Mean [Right Arm] 81 77 Blood Pressure Position Blood Pressure Position [Right Arm] Sitting Pulse Oximetry 100 100 100 Oxygen Delivery Method Room Air Nasal Cannula Nasal Cannula Oxygen Flow Rate 4 4 Sepsis Recent Fever Within 48 Hours Sepsis New/Unexplained Change in Mental Status Sepsis Action Taken by Nursing Oxygen Flow Rate - Titration Pulse Oximetry Post Tiitration 10/21/23 19:55 10/21/23 23:45 Temperature Temperature Source Pulse Rate 100 H 102 H Pulse Rate [Right Finger] Pulse Rhythm [Right Finger] Pulse Strength [Right Finger] Respiratory Rate Respiratory Effort / Characteristics Respiratory Depth Respiratory Pattern Blood Pressure Blood Pressure [Right Arm] Blood Pressure Mean Blood Pressure Mean [Right Arm] Blood Pressure Position Blood Pressure Position [Right Arm] Pulse Oximetry Oxygen Delivery Method Oxygen Flow Rate Sepsis Recent Fever Within 48 Hours Sepsis New/Unexplained Change in Mental Status Sepsis Action Taken by Nursing Oxygen Flow Rate - Titration Pulse Oximetry Post Tiitration Laboratory Data 10/21/23 16:53 10/21/23 16:53 Lab Results 10/21/23 Range/Units 16:53 WBC 7.76 (4.8-10.8) K/ul RBC 4.26 (4.20-5.40) M/uL Hgb 12.0 (12.0-16.0) g/dl Hct 39.9 (37.0-47.0) % MCV 93.7 (80.0-100.0) fL MCH 28.2 (25.0-34.0) pg MCHC 30.1 L (32.0-36.0) g/dL RDW Std Deviation 43.1 (36.4-46.3) fL RDW Coeff of Dougie 12.6 (11.5-14.5) % Plt Count 224 (130-400) K/uL MPV 10.0 (9.4-12.4) fL Immature Gran % (Auto) 0.6 % Neut % (Auto) 59.0 % Lymph % (Auto) 28.4 % Smith % (Auto) 8.8 % Eos % (Auto) 2.8 % Baso % (Auto) 0.4 % Neut # (Auto) 4.58 (1.40-6.50) K/uL Lymph # (Auto) 2.20 (1.20-3.40) K/uL Smith # (Auto) 0.68 H (0.11-0.59) K/uL Eos # (Auto) 0.22 (0.00-0.50) K/uL Baso # (Auto) 0.03 (0.00-0.20) K/uL Immature Gran # (Auto) 0.05 (0.01-0.20) K/uL PT 10.3 (9.0-12.0) Seconds INR 0.9 (0.9-1.1) APTT 27 (21-31) Seconds PTT Ratio 1.0 VBG pH 7.31 L (7.36-7.41) VBG pCO2 68 H (38-50) mmHg VBG pO2 < 20 mmHg VBG HCO3 34 mmol/L VBG O2 Saturation < 60.0 % VBG Base Excess 5.6 mEq/L Sodium 135 L (136-145) mmol/L Potassium 4.0 (3.5-5.1) mmol/L Chloride 98 (98-107) mmol/L Carbon Dioxide 33 H (21-32) mmol/L Anion Gap 4 (3-11) BUN 9 (6-23) mg/dl Creatinine 1.08 (0.6-1.2) mg/dl Est Cr Clr Drug Dosing 57.5 ml/min Est GFR ( Amer) 64.2 ml/min Est GFR (Non-Af Amer) 55.4 ml/min BUN/Creatinine Ratio 8.3 L (10-20) Glucose 80 (70-99(Fasting)) mg/dl Calcium 8.5 L (8.6-10.3) mg/dl Magnesium 1.9 (1.7-2.4) mg/dl Total Bilirubin 0.4 (0.2-1.0) mg/dl AST 12 L (13-39) U/L ALT 11 (7-52) U/L Alkaline Phosphatase 85 (34-104) U/L Troponin I High Sens 14.1 H (0-14) pg/ml B-Natriuretic Peptide 14 (0-100) pg/ml Total Protein 6.5 (6.0-8.3) gm/dl Albumin 3.6 (3.4-5.0) gm/dl Globulin 2.9 (2.5-4.0) gm/dl Albumin/Globulin Ratio 1.2 (0.9-2) Administered Medications Discontinued Medications Albuterol (Albut/Ipratrop 3mg/0.5mg Neb 3 Ml Vial) 3 ml NEB NOW STA; Protocol Stop: 10/21/23 20:08 Last Admin: 10/21/23 20:18 Dose: 3 ml Documented By: JEFF Acetaminophen (Ofirmev) 1,000 mg in 100 mls @ 400 mls/hr IV NOW STA Stop: 10/21/23 20:21 Last Infusion: 10/21/23 20:35 Dose: Infused Documented By: Admin: 10/21/23 20:19 Dose: 400 mls/hr Documented By: JEFF Ioversol (Optiray 320 125ml) 116 ml IV ONCE ONE Stop: 10/21/23 19:00 Last Admin: 10/21/23 19:00 Dose: 116 ml Documented By: LAURA Methylprednisolone (Methylprednisolone 125 Mg/2 Ml Vial) 125 mg IV NOW STA Stop: 10/21/23 20:08 Last Admin: 10/21/23 20:18 Dose: 125 mg Documented By: JEFF Imaging Data Radiologist's Impression: Chest CTA 10/21/23 16:28 Exam(s): CTA CHEST IV Amt: 116 ml optiray 320 EXAM: CT Angiography Chest With Intravenous Contrast CLINICAL HISTORY: Reason for exam: Dyspnea. TECHNIQUE: Axial computed tomographic angiography images of the chest with intravenous contrast. CTDI is 24.23 mGy and DLP is 818.83 mGy-cm. Automated exposure control was utilized for the study. A dose lowering technique was utilized adhering to the principles of ALARA. MIP reconstructed images were created and reviewed. COMPARISON: No relevant prior studies available. FINDINGS: Pulmonary arteries: Adequate pulmonary artery opacification. Normal caliber main pulmonary artery. No pulmonary embolism. Aorta: No acute findings. No aortic aneurysm or dissection. Lungs: No airspace consolidation or pulmonary mass. Emphysema. Pleural space: Unremarkable. No significant effusion. No pneumothorax. Heart: Minor coronary artery atherosclerosis. No cardiomegaly or RV strain. No pericardial effusion. Bones/joints: No acute fracture. No dislocation. Soft tissues: Unremarkable. Lymph nodes: Unremarkable. No adenopathy. IMPRESSION: 1. Emphysematous changes noted. Pulmonary emphysema is an independent risk factor for lung cancer. Consider patient evaluation for low-dose cancer screening protocol. 2. No evidence of acute pulmonary embolism. Electronically signed by: Laureen Trejo M.D. 10/21/23 19:21 PM Chest X-Ray 10/21/23 16:28 XR chest 1V portable CLINICAL HISTORY: Dyspnea. COMPARISON STUDY: Chest CT September 25, 2023. FINDINGS: Lung volumes are normal. Lungs are clear. There is no pneumothorax or pleural effusion. Cardiac size is normal. Mediastinal contours are normal. There is no evidence for pulmonary edema. Electronic device projects over the left chest. IMPRESSION: No acute cardiopulmonary findings. ACT 112: Negative or not required by law. Electronically signed by: Hector Ferrera M.D. 10/21/2023 5:[address] 10/21/23 16:28 Exam(s): CT HEAD Without Contrast EXAM: CT Head Without Intravenous Contrast CLINICAL HISTORY: Reason for exam: MANSFIELD. TECHNIQUE: Axial computed tomography images of the head/brain without intravenous contrast. CTDI is 37 mGy and DLP is 546.36 mGy-cm. Automated exposure control was utilized for the study. A dose lowering technique was utilized adhering to the principles of ALARA. COMPARISON: No relevant prior studies available. FINDINGS: Brain: There is mild generalized parenchymal volume loss with periventricular and deep cerebral white matter hypoattenuation, compatible with chronic small vessel ischemic change. Lewis-white matter differentiation is maintained. There is no hemorrhage, mass effect, parenchymal edema, or midline shift. Ventricles: Unremarkable. No hydrocephalus. Bones/joints: Calvarium is intact. No acute fracture. Soft tissues: Unremarkable. Vasculature: Intracranial atherosclerosis. Sinuses: Unremarkable as visualized. Mastoid air cells: Unremarkable as visualized. No mastoid effusion. IMPRESSION: No acute intracranial process. Electronically signed by: Laureen Trejo M.D. 10/21/23 19:19 PM Discharge Plan Visit Data Chief Complaint: Shortness of Breath/Dyspnea Stated Complaint: SOB, HEADACHE ED Provider: Андрей Gold Discharge Problem: Acute exacerbation of chronic obstructive pulmonary disease Forms Stand Alone Forms: [facility] [employer] Prescriptions Prescriptions: No Action pantoprazole [Protonix] 40 mg tablet,delayed release (DR/EC) 40 mg PO QAM Qty: 90 3RF infliximab [Remicade] 100 mg recon soln See Rx Instructions IV Q8WK Qty: 8 8RF Rx Instructions: DUE OCTOBER 02, 2023. 10 mg/kg intravenously every 8 weeks; albuterol sulfate 90 mcg/actuation HFA aerosol inhaler 2 puff inhalation Q4H PRN (Reason: Shortness Of Breath Or Wheezing) Qty: 8.5 5RF Trelegy Ellipta 200-62.5-25 mcg blister with device 1 ea INHALATION QAM Qty: 60 4RF (DME) Portable Oxygen Misc See Rx Instructions .MEDSUPPLY Qty: 1 0RF Rx Instructions: Oxygen 2 liters continuous via nasal cannula on exertion with portable concentrator. ANA MARIA 99 Tezspire 210 mg/1.91 mL (110 mg/mL) pen injector 210 mg subcut Q4WK Qty: 1.91 11RF Rx Instructions: HAD 10/12/23. Inject 210 mg Subcutaneously every 4 weeks Approved via [employer] from 05/08/23-11/07/23 cholecalciferol (vitamin D3) [Vitamin D3] 1,000 unit Capsule 1,000 unit PO QAM bupropion HCl 150 mg tablet extended release 24 hr 150 mg PO QAM Women's One Daily 18 mg iron-400 mcg-500 mg Ca Tablet 1 tab PO QAM tramadol 50 mg tablet 50 mg PO BID PRN (Reason: Pain) gabapentin 800 mg tablet 800 mg PO TID celecoxib 100 mg capsule 100 mg PO DAILY duloxetine 60 mg capsule,delayed release(DR/EC) 60 mg PO QAM trazodone 50 mg tablet 50 mg PO HS atorvastatin 40 mg tablet 40 mg PO HS lisinopril 2.5 mg tablet 2.5 mg PO DAILY ipratropium-albuterol 0.5 mg-3 mg(2.5 mg base)/3 mL solution for nebulization 3 ml inhalation QID PRN (Reason: Shortness Of Breath Or Wheezing) benzonatate 100 mg Capsule 100 mg PO TID PRN (Reason: cough) Qty: 30 0RF azithromycin 250 mg tablet 250 mg PO 3XWK Rx Instructions: Thursday, Thursday and Thursday Referrals Referrals: Mekhi Reyes MD [Primary Care Provider] -
[2023-10-21] MEDS: ALBUT/IPRATROP 3MG/0.5MG NEB 3 ML VIAL NEB STA (20:18)
[2023-10-21] MEDS: methylPREDNISolone 125 MG/2 ML VIAL IV STA (20:18)
[2023-10-21] MEDS: ACETAMINOPHEN 1,000 MG/100 ML VIAL IV STA (20:19)
[2023-10-22] MEDS ORDERED: ALBUTEROL HFA 8 GM INHALER INH PRN (00:57)
[2023-10-22] MEDS ORDERED: NITROGLYCERIN SL 0.4 MG/TAB TAB SL PRN (00:57)
[2023-10-22] MEDS ORDERED: ALBUT/IPRATROP 3MG/0.5MG NEB 3 ML VIAL NEB PRN (00:57)
[2023-10-22] MEDS ORDERED: POLYETHYLENE (MIRALAX) 17 GM PACK PO PRN (00:57)
[2023-10-22] MEDS ORDERED: BENZONATATE 100 MG CAPSULE PO PRN (00:57)
[2023-10-22] MEDS ORDERED: ALBUT/IPRATROP 3MG/0.5MG NEB 3 ML VIAL INH PRN (00:57)
[2023-10-22 02:07] LABS: Appearance Urine Clear (Clear); Bacteria Urine Automated 1+ (None Seen); Bilirubin Urine Negative (Negative); Blood Urine Negative (Negative); Cast Urine Automated 0-2 /lpf (0-2); Color Urine Yellow; Epithelial Cell Urine Auto 0-2 /hpf (0-2); Glucose Urine UA Negative (Negative); Ketones Urine Negative (Negative); Leukocyte Esterase Urine 2+ (Negative); Nitrite Urine Negative (Negative); Protein Urine Negative (Negative); RBC Urine Automated 0-2 /hpf (0-2); Specific Gravity Urine 1.029 (1.000-1.030); Urobilinogen Urine Negative (Negative); WBC Urine Automated 21-50 /hpf (0-5)
[2023-10-22] MEDS: ATORVASTATIN 40 MG TAB PO STA (04:06)
[2023-10-22] MEDS: traZODone HCL 50 MG TAB PO ONE (04:06)
--- NOTE | 2023-10-22 05:21 | History & Physical Report ---
Date of Service October 21, 2023 Assessment & Plan (1) Acute exacerbation of chronic obstructive pulmonary disease: Plan: 63 year old female with PMH HTN, HLD, diet controlled DM II, Crohn's, asthma, COPD, chronic respiratory failure on 2L oxygen, depression, LALO, GERD, chronic pain presents with shortness of breath. Patient was in the hospital end of August with COPD Exacerbation. Patient since last one week again developing shortness of breath which is progressively getting worse. Coughing up a Yellow phlegm. States walking few steps making her short of breath. Denies chest pain. No fevers. Today around 3 AM she woke up with severe headaches. S till has a lot of headaches. No blurred vision. Has some runny nose. No sore throat. Appetite is okay. No nausea. No abdominal pain. Normal bowel and bladder movements. Currently requiring 4 L oxygen. 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 8 weeks depression on bupropion and duloxetine GERD on PPI DVT prophylaxis Lovenox disposition med/telemetry History of Present Illness Chief Complaint: shortness of breath Primary Care Provider: Mekhi Reyes MD 63 year old female with PMH HTN, HLD, diet controlled DM II, Crohn's, asthma, COPD, chronic respiratory failure on 2L oxygen, depression, LALO, GERD, chronic pain presents with shortness of breath. Patient was in the hospital end of August with COPD Exacerbation. Patient since last one week again developing shortness of breath which is progressively getting worse. Coughing up a Yellow phlegm. States walking few steps making her short of breath. Denies chest pain. No fevers. Today around 3 AM she woke up with severe headaches. Still has a lot of headaches. No blurred vision. Has some runny nose. No sore throat. Appetite is okay. No nausea. No abdominal pain. Normal bowel and bladder movements. Currently requiring 4 L oxygen. Past medical history. As mentioned above past surgical history. Lumbar surgery x 4. Injection of lumbosacral spine. Tubal ligation. Appendectomy. Tonsillectomy adenoidectomy. Inguinal hernia repair. Social history. . Smoking 2003. Smoked 2 packs a day for 38 years. No alcohol use. No drug use. Family history. Mother has asthma. Diabetes. Hypertension. Father had heart disorder. Maternal aunt had breast cancer. Maternal aunt had ovarian cancer. Allergies Allergy/AdvReac Type Severity Reaction Status Date / Time adhesive tape AdvReac Severe TEARS SKIN Verified 10/21/23 20:24 Home Medications Medication Instructions Recorded Confirmed Type cholecalciferol (vitamin D3) 25 1,000 unit PO QAM 08/25/18 10/21/23 History mcg (1,000 unit) capsule (Vitamin D3) bupropion HCl 150 mg 24 hr tablet, 150 mg PO QAM 08/08/20 10/21/23 History extended release multivit-iron 18 mg-folic acid 400 1 tab PO QAM 08/08/20 10/21/23 History mcg-calcium 500 mg-minerals tablet (Women's One Daily) atorvastatin 40 mg tablet 40 mg PO HS 03/17/21 10/21/23 History trazodone 50 mg tablet 50 mg PO HS 03/17/21 10/21/23 History pantoprazole 40 mg tablet,delayed 40 mg PO QAM gastritis #90 tabs 06/24/21 10/21/23 Rx release (Protonix) celecoxib 100 mg capsule 100 mg PO DAILY 04/04/23 10/21/23 History duloxetine 60 mg capsule,delayed 60 mg PO QAM 04/04/23 10/21/23 History release gabapentin 800 mg tablet 800 mg PO TID 04/04/23 10/21/23 History tramadol 50 mg tablet 50 mg PO BID PRN Pain 04/04/23 10/21/23 History Portable Oxygen #1 ea 05/06/23 10/20/23 Rx albuterol sulfate 90 mcg/actuation 2 puff inhalation Q4H PRN 05/06/23 10/21/23 Rx aerosol inhaler Shortness Of Breath Or Wheezing #8.5 grams fluticasone fur. 200 mcg-umeclid 1 ea inhalation QAM #60 ea 05/06/23 10/21/23 Rx 62.5 mcg-vilant 25 mcg inhalat.powder (Trelegy Ellipta) tezepelumab-ekko 210 mg/1.91 mL 210 mg (1.91 mL) subcut Q4WK #1.91 05/14/23 10/21/23 Rx (110 mg/mL) subcutaneous pen mL injector (Tezspire) ipratropium 0.5 mg-albuterol 3 mg 3 ml inhalation QID PRN Shortness 06/17/23 10/21/23 History (2.5 mg base)/3 mL nebulization Of Breath Or Wheezing soln lisinopril 2.5 mg tablet 2.5 mg PO DAILY 06/17/23 10/21/23 History benzonatate 100 mg capsule 100 mg PO TID PRN cough #30 caps 06/20/23 10/21/23 Rx infliximab 100 mg intravenous See Rx Instructions IV Q8WK #8 ea 10/12/23 10/21/23 Rx solution (Remicade) azithromycin 250 mg tablet 250 mg PO 3XWK 10/21/23 10/21/23 History Past Med/Surg History Problem List (Updated 10/22/23 @ 00:30 by Андрей Gold DO) Acute exacerbation of chronic obstructive pulmonary disease (Acute) Acute exacerbation of chronic obstructive pulmonary disease (Acute) Shortness of breath (Acute) Eosinophilic asthma Acute viral bronchitis Elevated troponin Hypomagnesemia Hypokalemia Influenza A (Acute) Traumatic open wound of left lower leg with delayed healing (Acute) Chronic respiratory failure with hypoxia H/O of biological therapy treatment Elevated IgE level Acute asthma exacerbation Cat scratch of face Acute respiratory acidosis Sinus tachycardia Acute respiratory failure with hypoxia and hypercarbia GERD (gastroesophageal reflux disease) (Chronic) Recurrent syncope (Acute) Former smoker (Acute) COPD with emphysema Obstructive sleep apnea syndrome Crohns disease Tubular adenoma of colon Colonic stricture COPD exacerbation Depression DM type 2 (diabetes mellitus, type 2) NIDDM- DIET CONTROLLED LALO (obstructive sleep apnea) (Acute) CPAP Asthma (Chronic) Hypertension (Chronic) Hyperlipidemia (Chronic) Chronic low back pain (Chronic) Medical History Eosinophilic asthma Acute viral bronchitis Elevated IgE level Acute asthma exacerbation Leiomyoma of uterus History of COVID-19 diagnosed 03/17/21 @ [facility]--had difficulty breathing d/t COPD and had to hospitalized with oxygen for 1 week, pt states no lingering symptoms Crohns disease GERD (gastroesophageal reflux disease) DM type 2 (diabetes mellitus, type 2) NIDDM- DIET CONTROLLED Depression Anxiety History of migraine LALO (obstructive sleep apnea) CPAP DVT prophylaxis Asthma COPD (chronic obstructive pulmonary disease) well controlled w/ inhaler daily/prn, has not needed neb in "a while" Chronic low back pain Hyperlipidemia Hypertension Surgical History History of appendectomy S/P colon resection (07/04/21) Laparoscopic Assisted Right Colon Resection - Gildardo Woods MD, FACS 07/04/2021 History of esophagogastroduodenoscopy (EGD) History of tooth extraction History of tubal ligation History of D&C History of appendectomy History of lumbar surgery x 5; hardware present History of colonoscopy last 02/21/21 @ [facility] History of carpal tunnel surgery BL Family History Brother Diabetes Father , in early 60s from AMI Diabetes Myocardial infarction Mother , in her 60s; "natural" causes No problems noted. Other No family history of adverse response to anesthesia Denies family history of Inflammatory bowel disease Social History Smoking Status: Former smoker Tobacco Type: Cigarettes Age Started Using Tobacco: 16; Age Quit Using Tobacco: 43; packs per day: 2.5; Second Hand Exposure: No; Do You Dip or Chew Tobacco: No; Tobacco Cessation Education Requested by Patient: No Hx Alcohol Use: No Hx Substance Use: No Preferred Language: French Communication Ability: Effective Visual Impairment: Limited Hearing Ability: Normal Piano Mover Required: No Beliefs That Will Affect Care: None marital status: Current Living Situation: Spouse and Family Current Living Situation Comment: lives with and grandson current occupational status: retired current occupation: worked at [employer] How many Children do You have: 1 Other Information That Helps Us Care for You: No other: lives in [place] Feels Safe at Home: Yes Safety Concerns: Feels Safe At This Time Diet: diabetic Seatbelt Use: always Do you think of yourself as: straight/heterosexual Gender Identity: Female Assistive Devices: Denture - Upper, Denture - Lower and Glasses Review of Systems Review of Systems: All systems reviewed & are unremarkable except as noted in HPI & below Physical Exam Physical Exam: General- Not in distress. Head- atraumatic Eyes- PERRL. ENT- oropharynx clear Neck- supple, no JVD. Lungs- clear to auscultation b/l rhonchi heard. Heart- regular rhythm; no murmur, no gallop. Abdomen- normal bowel sounds, soft, nontender, no distension. Extremities- mild pretibial edema present , no erythema seen. Neuro- alert, oriented x 3; PERRL, no facial palsy; no dysarthria; moves extremities. Results & Data Results & Data Vital Signs (Past 12 Hours) Vital Signs Temp Pulse Pulse Resp BP BP Pulse Ox 10/21/23 19:55 100 H 10/21/23 19:54 105 H 18 115/59 L 100 10/21/23 19:54 100 10/21/23 18:31 62 16 107/68 100 10/21/23 16:50 68 22 103/65 99 10/21/23 16:30 87 L 10/21/23 16:26 36.8 C 105 H 18 120/70 87 L O2 Del Method O2 Flow Rate 10/21/23 19:55 10/21/23 19:54 Nasal Cannula 4 10/21/23 19:54 Nasal Cannula 4 10/21/23 18:31 Room Air 10/21/23 16:50 Nasal Cannula 4 10/21/23 16:30 Nasal Cannula 2 10/21/23 16:26 Nasal Cannula 2 Diagnostic Findings Laboratory Results WBC 7.76 K/ul (4.8-10.8) 10/21/23 16:53 RBC 4.26 M/uL (4.20-5.40) 10/21/23 16:53 Hgb 12.0 g/dl (12.0-16.0) 10/21/23 16:53 Hct 39.9 % (37.0-47.0) 10/21/23 16:53 MCV 93.7 fL (80.0-100.0) 10/21/23 16:53 MCH 28.2 pg (25.0-34.0) 10/21/23 16:53 MCHC 30.1 g/dL (32.0-36.0) L 10/21/23 16:53 RDW Std Deviation 43.1 fL (36.4-46.3) 10/21/23 16:53 RDW Coeff of Dougie 12.6 % (11.5-14.5) 10/21/23 16:53 Plt Count 224 K/uL (130-400) 10/21/23 16:53 MPV 10.0 fL (9.4-12.4) 10/21/23 16:53 Immature Gran % (Auto) 0.6 % 10/21/23 16:53 Neut % (Auto) 59.0 % 10/21/23 16:53 Lymph % (Auto) 28.4 % 10/21/23 16:53 Bent % (Auto) 8.8 % 10/21/23 16:53 Eos % (Auto) 2.8 % 10/21/23 16:53 Baso % (Auto) 0.4 % 10/21/23 16:53 Neut # (Auto) 4.58 K/uL (1.40-6.50) 10/21/23 16:53 Lymph # (Auto) 2.20 K/uL (1.20-3.40) 10/21/23 16:53 Bent # (Auto) 0.68 K/uL (0.11-0.59) H 10/21/23 16:53 Eos # (Auto) 0.22 K/uL (0.00-0.50) 10/21/23 16:53 Baso # (Auto) 0.03 K/uL (0.00-0.20) 10/21/23 16:53 Immature Gran # (Auto) 0.05 K/uL (0.01-0.20) 10/21/23 16:53 PT 10.3 Seconds (9.0-12.0) 10/21/23 16:53 INR 0.9 (0.9-1.1) 10/21/23 16:53 APTT 27 Seconds (21-31) 10/21/23 16:53 PTT Ratio 1.0 10/21/23 16:53 VBG pH 7.31 (7.36-7.41) L 10/21/23 16:53 VBG pCO2 68 mmHg (38-50) H 10/21/23 16:53 VBG pO2 < 20 mmHg 10/21/23 16:53 VBG HCO3 34 mmol/L 10/21/23 16:53 VBG O2 Saturation < 60.0 % 10/21/23 16:53 VBG Base Excess 5.6 mEq/L 10/21/23 16:53 Sodium 135 mmol/L (136-145) L 10/21/23 16:53 Potassium 4.0 mmol/L (3.5-5.1) 10/21/23 16:53 Chloride 98 mmol/L (98-107) 10/21/23 16:53 Carbon Dioxide 33 mmol/L (21-32) H 10/21/23 16:53 Anion Gap 4 (3-11) 10/21/23 16:53 BUN 9 mg/dl (6-23) 10/21/23 16:53 Creatinine 1.08 mg/dl (0.6-1.2) 10/21/23 16:53 Est Cr Clr Drug Dosing 57.5 ml/min 10/21/23 16:53 Est GFR ( Amer) 64.2 ml/min 10/21/23 16:53 Est GFR (Non-Af Amer) 55.4 ml/min 10/21/23 16:53 BUN/Creatinine Ratio 8.3 (10-20) L 10/21/23 16:53 Glucose 80 mg/dl (70-99(Fasting)) 10/21/23 16:53 Calcium 8.5 mg/dl (8.6-10.3) L 10/21/23 16:53 Magnesium 1.9 mg/dl (1.7-2.4) 10/21/23 16:53 Total Bilirubin 0.4 mg/dl (0.2-1.0) 10/21/23 16:53 AST 12 U/L (13-39) L 10/21/23 16:53 ALT 11 U/L (7-52) 10/21/23 16:53 Alkaline Phosphatase 85 U/L (34-104) 10/21/23 16:53 Troponin I High Sens 14.1 pg/ml (0-14) H 10/21/23 16:53 B-Natriuretic Peptide 14 pg/ml (0-100) 10/21/23 16:53 Total Protein 6.5 gm/dl (6.0-8.3) 10/21/23 16:53 Albumin 3.6 gm/dl (3.4-5.0) 10/21/23 16:53 Globulin 2.9 gm/dl (2.5-4.0) 10/21/23 16:53 Albumin/Globulin Ratio 1.2 (0.9-2) 10/21/23 16:53 Urine Color Yellow 10/22/23 01:45 Urine Appearance Clear (Clear) 10/22/23 01:45 Urine pH 6.0 (4.5-7.5) 10/22/23 01:45 Ur Specific [place] 1.029 (1.000-1.030) 10/22/23 01:45 Urine Protein Negative (Negative) 10/22/23 01:45 Urine Glucose (UA) Negative (Negative) 10/22/23 01:45 Urine Ketones Negative (Negative) 10/22/23 01:45 Urine Blood Negative (Negative) 10/22/23 01:45 Urine Nitrite Negative (Negative) 10/22/23 01:45 Urine Bilirubin Negative (Negative) 10/22/23 01:45 Urine Urobilinogen Negative (Negative) 10/22/23 01:45 Ur Leukocyte Esterase 2+ (Negative) H 10/22/23 01:45 Urine WBC (Auto) 21-50 /hpf (0-5) H 10/22/23 01:45 Urine RBC (Auto) 0-2 /hpf (0-2) 10/22/23 01:45 U Hyaline Cast (Auto) 0-2 /lpf (0-2) 10/22/23 01:45 U Epithel Cells (Auto) 0-2 /hpf (0-2) 10/22/23 01:45 Urine Bacteria (Auto) 1+ (None Seen) H 10/22/23 01:45 Impressions Chest CTA 10/21/23 16:28 Exam(s): CTA CHEST IV Amt: 116 ml optiray 320 EXAM: CT Angiography Chest With Intravenous Contrast CLINICAL HISTORY: Reason for exam: Dyspnea. TECHNIQUE: Axial computed tomographic angiography images of the chest with intravenous contrast. CTDI is 24.23 mGy and DLP is 818.83 mGy-cm. Automated exposure control was utilized for the study. A dose lowering technique was utilized adhering to the principles of ALARA. MIP reconstructed images were created and reviewed. COMPARISON: No relevant prior studies available. FINDINGS: Pulmonary arteries: Adequate pulmonary artery opacification. Normal caliber main pulmonary artery. No pulmonary embolism. Aorta: No acute findings. No aortic aneurysm or dissection. Lungs: No airspace consolidation or pulmonary mass. Emphysema. Pleural space: Unremarkable. No significant effusion. No pneumothorax. Heart: Minor coronary artery atherosclerosis. No cardiomegaly or RV strain. No pericardial effusion. Bones/joints: No acute fracture. No dislocation. Soft tissues: Unremarkable. Lymph nodes: Unremarkable. No adenopathy. IMPRESSION: 1. Emphysematous changes noted. Pulmonary emphysema is an independent risk factor for lung cancer. Consider patient evaluation for low-dose cancer screening protocol. 2. No evidence of acute pulmonary embolism. Electronically signed by: Laureen Trejo M.D. 10/21/23 19:21 PM Chest X-Ray 10/21/23 16:28 XR chest 1V portable CLINICAL HISTORY: Dyspnea. COMPARISON STUDY: Chest CT September 25, 2023. FINDINGS: Lung volumes are normal. Lungs are clear. There is no pneumothorax or pleural effusion. Cardiac size is normal. Mediastinal contours are normal. There is no evidence for pulmonary edema. Electronic device projects over the left chest. IMPRESSION: No acute cardiopulmonary findings. ACT 112: Negative or not required by law. Electronically signed by: Hector Ferrera M.D. 10/21/2023 5:[address] 10/21/23 16:28 Exam(s): CT HEAD Without Contrast EXAM: CT Head Without Intravenous Contrast CLINICAL HISTORY: Reason for exam: MANSFIELD. TECHNIQUE: Axial computed tomography images of the head/brain without intravenous contrast. CTDI is 37 mGy and DLP is 546.36 mGy-cm. Automated exposure control was utilized for the study. A dose lowering technique was utilized adhering to the principles of ALARA. COMPARISON: No relevant prior studies available. FINDINGS: Brain: There is mild generalized parenchymal volume loss with periventricular and deep cerebral white matter hypoattenuation, compatible with chronic small vessel ischemic change. Lewis-white matter differentiation is maintained. There is no hemorrhage, mass effect, parenchymal edema, or midline shift. Ventricles: Unremarkable. No hydrocephalus. Bones/joints: Calvarium is intact. No acute fracture. Soft tissues: Unremarkable. Vasculature: Intracranial atherosclerosis. Sinuses: Unremarkable as visualized. Mastoid air cells: Unremarkable as visualized. No mastoid effusion. IMPRESSION: No acute intracranial process. Electronically signed by: Laureen Trejo M.D. 10/21/23 19:19 PM ECG Additional Comments: ECG. Sinus tachycardia with PACs at a rate of 103. No significant change was found. Code Status & VTE Plan VTE Prophylaxis Plan VTE Prophylaxis will be ordered: Yes
[2023-10-22 06:07] LABS: BUN Creatinine Ratio 9.3 (10-20); Calcium 8.6 mg/dl (8.6-10.3); Creatinine Clr Calc Pharmacy 98.6 ml/min; Est GFR (African American) 73.1 ml/min; Magnesium 2.1 mg/dl (1.7-2.4); Potassium 4.7 mmol/L (3.5-5.1)
[2023-10-22 06:09] LABS: Hematocrit (blood only) 37.1 % (37.0-47.0); Hemoglobin 11.7 g/dl (12.0-16.0); Immature Granulocytes # (auto) 0.02 K/uL (0.01-0.20); Immature Granulocytes % (auto) 0.6 %; Lymphocytes # (auto) 0.35 K/uL (1.20-3.40); Lymphocytes % (auto) 10.1 %; Mean Corpuscular Hemoglobin 28.7 pg (25.0-34.0); Mean Corpuscular Hgb Conc 31.5 g/dL (32.0-36.0); Mean Corpuscular Volume 91.2 fL (80.0-100.0); Mean Platelet Volume 9.9 fL (9.4-12.4); Monocytes # (auto) 0.02 K/uL (0.11-0.59); Monocytes % (auto) 0.6 %; Neutrophils # (auto) 3.07 K/uL (1.40-6.50); Neutrophils % (auto) 88.7 %; Platelet Count 212 K/uL (130-400); RDW Coefficient of Variation 12.3 % (11.5-14.5); RDW Standard Deviation 41.1 fL (36.4-46.3); Red Blood Count 4.07 M/uL (4.20-5.40); White Blood Count 3.46 K/ul (4.8-10.8)
[2023-10-22] MEDS: cefTRIAXone SODIUM 2,000 MG/50 ML BAG IV SCH (06:13)
[2023-10-22] MEDS: methylPREDNISolone 40 MG in SYRINGE 0 ML IV SCH (06:14)
[2023-10-22] MEDS: ACETAMINOPHEN 325 MG TAB PO PRN (07:43)
[2023-10-22] MEDS: ENOXAPARIN INJ 40 MG/0.4 ML SYR SQ SCH (08:11)
[2023-10-22] MEDS: buPROPion XL 150 MG TABCR PO SCH (08:12)
[2023-10-22] MEDS: GABAPENTIN 800 MG TAB PO SCH (08:12)
[2023-10-22] MEDS: MULTIVITAMIN TAB PO SCH (08:12)
[2023-10-22] MEDS: FLUTICASONE FUROATE 200MCG 14 PUFFS/INHALER INH SCH (08:12)
[2023-10-22] MEDS: CHOLECALCIFEROL 25 MCG (1000 UNITS) TAB PO SCH (08:12)
[2023-10-22] MEDS: DULoxetine HCL 60 MG CAP PO SCH (08:12)
[2023-10-22] MEDS: PANTOprazole 40 MG TAB PO SCH (08:12)
[2023-10-22] MEDS: UMECLIDINIUM/VILANTEROL 62.5/25MCG 7 PUFFS/INHALER INH SCH (08:12)
[2023-10-22 08:59] LABS: Adenovirus PCR Not Detected (NotDetected); Bordetella parapertussis PCR Not Detected (NotDetected); Bordetella pertussis PCR Not Detected (NotDetected); Chlamydia pneumoniae PCR Not Detected (NotDetected); Coronavirus 229E PCR Not Detected (NotDetected); Coronavirus CoV-2 (COVID19)PCR Not Detected (NotDetected); Coronavirus HKU1 PCR Not Detected (NotDetected); Coronavirus NL63 PCR Not Detected (NotDetected); Coronavirus OC43PCR Not Detected (NotDetected); Human Metapneumovirus PCR Not Detected (NotDetected); Influenza A PCR Not Detected (NotDetected); Influenza B PCR Not Detected (NotDetected); Mycoplasma pneumoniae PCR Not Detected (NotDetected); Parainfluenza Virus 1 PCR Not Detected (NotDetected); Parainfluenza Virus 2 PCR Not Detected (NotDetected); Parainfluenza Virus 3 PCR Not Detected (NotDetected); Parainfluenza Virus 4 PCR Not Detected (NotDetected); Respiratory Syncytial VirusPCR Not Detected (NotDetected); Rhinovirus/Enterovirus PCR Not Detected (NotDetected)
[2023-10-22] MEDS ORDERED: lisinopril 2.5 MG TAB PO SCH (09:00)
[2023-10-22] MEDS ORDERED: methylPREDNISolone 125 MG/2 ML VIAL IV SCH (09:00)
[2023-10-22] MEDS ORDERED: Nursing to Pharmacy Communication SCH (09:15)
[2023-10-22] MEDS: UMECLIDINIUM BROMIDE 62.5MCG/BLISTER 7 PUFFS/INHALER INH SCH (10:43)
[2023-10-22] MEDS: BUDESONIDE 0.5 MG/2 ML VIAL (PULMICORT) NEB SCH (11:02)
[2023-10-22] MEDS: FORMOTEROL 20 MCG/2 ML VIAL NEB SCH (11:02)
--- NOTE | 2023-10-22 15:16 | Electrocardiogram Report ---
Test Reason : Blood Pressure : / mmHG Vent. Rate : 103 BPM Atrial Rate : 103 BPM P-R Int : 138 ms QRS Dur : 078 ms QT Int : 342 ms P-R-T Axes : 088 073 073 degrees QTc Int : 448 ms Sinus tachycardia with Premature atrial complexes Otherwise normal ECG When compared with ECG of 24-SEP-2023 06:20, No significant change was found Confirmed by Royce Mckeon ([id number]) on 10/22/2023 3:15:53 PM Referred By: REFERRED SELF Confirmed By:Royce Mckeon
--- NOTE | 2023-10-22 15:58 | Hospitalist Progress Note ---
Date of Service October 22, 2023 Assessment & Plan (1) Acute exacerbation of chronic obstructive pulmonary disease: Plan: 63 year old female with PMH HTN, HLD, diet controlled DM II, Crohn's, asthma, COPD, chronic respiratory failure on 2L oxygen, depression, LALO, GERD, chronic pain presents with shortness of breath. Patient was in the hospital end of August with COPD Exacerbation. Patient since last one week again developing shortness of breath which is progressively getting worse. Coughing up a Yellow phlegm. States walking few steps making her short of breath. Denies chest pain. No fevers. Today around 3 AM she woke up with severe headaches. S till has a lot of headaches. No blurred vision. Has some runny nose. No sore throat. Appetite is okay. No nausea. No abdominal pain. Normal bowel and bladder movements. Currently requiring 4 L oxygen. 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 8 weeks No acute disease Depression on bupropion and duloxetine GERD on PPI DVT prophylaxis Lovenox disposition med/telemetry Admission and Anticipated Discharge Date Admission Date: October 21, 2023 Subjective 10/22/2023 The patient was seen and examined in medical telemetry unit She has been feeling little better but he still has profound wheezing but short ness of breath has been improving Has been requiring 3 L to maintain saturation Review of Systems Review of Systems: All systems reviewed and are unremarkable except as noted below Physical Exam Physical Exam: Lying in bed without any acute distress Constitutional: + ill appearing and average body habitus Eyes: PERRL, conjunctivae normal, anicteric sclerae ENMT: external ear and nose normal, oropharynx normal Neck: trachea midline, no thyromegaly Respiratory: no respiratory distress Auscultation: + diminished lung sounds and + wheezes (All over) Cardiovascular: Rate/Rhythm: regular rate, regular rhythm and + tachycardic Heart Sounds: normal S1 and normal S2; no murmur Extremities: no edema Gastrointestinal (Abdomen): Inspection/Auscultation: normal bowel sounds; abdomen not distended Percussion/Palpation: abdomen soft; abdomen nontender Musculoskeletal: No acute arthritis involving any of the joints Neurologic: normal touch/pain/proprioception and moves all extremities; no focal motor deficits Psychiatric: A+Ox3, euthymic affect Lymphatic: no cervical or axillary lymphadenopathy Results & Data Results & Data Vital Signs (Past 12 Hours) Vital Signs Temp Pulse Pulse Resp BP Pulse Ox O2 Del Method 10/22/23 15:36 37.0 C 115 H 20 146/92 H 97 Nasal Cannula 10/22/23 15:23 117 H 10/22/23 11:13 36.7 C 107 H 20 134/82 95 Nasal Cannula 10/22/23 11:07 16 97 Nasal Cannula 10/22/23 07:56 36.6 C 106 H 20 134/90 97 Nasal Cannula 10/22/23 07:49 Nasal Cannula 10/22/23 07:06 104 H 10/22/23 04:29 36.8 C 95 H 20 136/68 97 Nasal Cannula O2 Flow Rate 10/22/23 15:36 3 10/22/23 15:23 10/22/23 11:13 3 10/22/23 11:07 2 10/22/23 07:56 3.5 10/22/23 07:49 2 10/22/23 07:06 10/22/23 04:29 2 Laboratory Results Short CBC 10/21/23 10/22/23 Range/Units 16:53 05:33 WBC 7.76 3.46 L (4.8-10.8) K/ul Hgb 12.0 11.7 L (12.0-16.0) g/dl Hct 39.9 37.1 (37.0-47.0) % Plt Count 224 212 (130-400) K/uL BMP 10/21/23 10/22/23 16:53 05:33 Sodium 135 L 136 Potassium 4.0 4.7 Chloride 98 101 Carbon Dioxide 33 H 31 BUN 9 9 Creatinine 1.08 0.97 Glucose 80 200 H Calcium 8.5 L 8.6 Liver Function 10/21/23 Range/Units 16:53 Total Bilirubin 0.4 (0.2-1.0) mg/dl AST 12 L (13-39) U/L ALT 11 (7-52) U/L Alkaline Phosphatase 85 (34-104) U/L Albumin 3.6 (3.4-5.0) gm/dl Urine 10/22/23 Range/Units 01:45 Urine Color Yellow Urine Appearance Clear (Clear) Urine pH 6.0 (4.5-7.5) Ur Specific [place] 1.029 (1.000-1.030) Urine Protein Negative (Negative) Urine Glucose (UA) Negative (Negative) Medications Administered Current Inpatient Medications Acetaminophen (Acetaminophen 325 Mg Tab) 650 mg PO Q4H PRN PRN Reason: Pain or Fever Stop: 11/21/23 00:56 Last Admin: 10/22/23 15:42 Dose: 650 mg Albuterol (Albut/Ipratrop 3mg/0.5mg Neb 3 Ml Vial) 3 ml NEB QIDR PRN; Protocol PRN Reason: Shortness Of Breath Or Wheezin Stop: 11/21/23 00:56 Albuterol (Albuterol Hfa 8 Gm Inhaler) 2 puffs INH Q4H PRN PRN Reason: Shortness Of Breath Or Wheezin Stop: 11/21/23 00:56 Atorvastatin Calcium (Atorvastatin 40 Mg Tab) 40 mg PO HS [facility] Stop: 11/21/23 20:59 Azithromycin (Azithromycin 250 Mg Tab) 250 mg PO MoWeFr@0900 [facility] Stop: 11/22/23 08:59 Benzonatate (Benzonatate 100 Mg Capsule) 100 mg PO TID PRN PRN Reason: cough Stop: 11/21/23 00:56 Budesonide (Budesonide 0.5 Mg/2 Ml Vial (Pulmicort)) 0.5 mg NEB BIDR [facility] Stop: 11/21/23 10:59 Last Admin: 10/22/23 11:02 Dose: 0.5 mg Bupropion HCl (Bupropion Xl 150 Mg Tabcr) 150 mg PO QAM [facility] Stop: 11/21/23 08:59 Last Admin: 10/22/23 08:12 Dose: 150 mg Duloxetine HCl (Duloxetine Hcl 60 Mg Cap) 60 mg PO QAM [facility] Stop: 11/21/23 08:59 Last Admin: 10/22/23 08:12 Dose: 60 mg Enoxaparin Sodium (Enoxaparin Inj 40 Mg/0.4 Ml Syr) 40 mg SQ Q24H [facility] Stop: 11/21/23 08:59 Last Admin: 10/22/23 08:11 Dose: 40 mg Formoterol Fumarate (Formoterol 20 Mcg/2 Ml Vial) 20 mcg NEB BIDR [facility] Stop: 11/21/23 10:59 Last Admin: 10/22/23 11:02 Dose: 20 mcg Gabapentin (Gabapentin 800 Mg Tab) 800 mg PO TID [facility] Stop: 11/21/23 08:59 Last Admin: 10/22/23 13:45 Dose: 800 mg Methylprednisolone 40 mg/ (Syringe) 0.64 mls @ 1.5 mls/min IV Q8H [facility] Stop: 11/21/23 05:59 Last Admin: 10/22/23 13:45 Dose: 1.5 mls/min Ceftriaxone Sodium (Rocephin) 2,000 mg in 50 mls @ 100 mls/hr IV Q24H [facility] Stop: 11/01/23 05:59 Last Infusion: 10/22/23 07:26 Dose: Infused Lisinopril (Lisinopril 2.5 Mg Tab) 2.5 mg PO HS [facility] Stop: 11/21/23 20:59 Multivitamins (Multivitamin Tab) 1 tab PO QAM [facility] Stop: 11/21/23 08:59 Last Admin: 10/22/23 08:12 Dose: 1 tab Nitroglycerin (Nitroglycerin Sl 0.4 Mg/Tab Tab) 0.4 mg SL Q5M PRN PRN Reason: Chest Pain Stop: 11/21/23 00:56 Pantoprazole Sodium (Pantoprazole 40 Mg Tab) 40 mg PO QAM [facility] Stop: 11/21/23 08:59 Last Admin: 10/22/23 08:12 Dose: 40 mg Polyethylene Glycol (Polyethylene (Miralax) 17 Gm Pack) 17 gm PO DAILY PRN PRN Reason: Constipation Stop: 11/21/23 00:56 Tramadol HCl (Tramadol Hcl 50 Mg Tablet) 50 mg PO BID PRN PRN Reason: Pain Stop: 11/21/23 00:56 Trazodone HCl (Trazodone Hcl 50 Mg Tab) 50 mg PO HS [facility] Stop: 11/21/23 20:59 Umeclidinium [place]o (Umeclidinium [place] 62.5mcg/Blister 7 Puffs/Inhaler) 1 puffs INH DAILY [facility] Stop: 11/21/23 11:00 Last Admin: 10/22/23 10:43 Dose: 1 puffs Vitamin D (Cholecalciferol 25 Mcg (1000 Units) Tab) 25 mcg PO QAM [facility] Stop: 11/21/23 08:59 Last Admin: 10/22/23 08:12 Dose: 25 mcg
[2023-10-22] MEDS: traMADol HCL 50 MG TABLET PO PRN (17:28)
[2023-10-22] MEDS: ONDANSETRON INJ 2 MG/ML 2 ML VIAL IV PRN (20:53)
[2023-10-22] MEDS: traZODone HCL 50 MG TAB PO SCH (21:34)
[2023-10-22] MEDS: lisinopril 2.5 MG TAB PO SCH (21:35)
[2023-10-22] MEDS: ATORVASTATIN 40 MG TAB PO SCH (21:35)
--- OUTSIDE RECORDS SUMMARY | 2023-10-22 23:14 | External Medical Summary | Summary of Care ---
Author Name Unknown Organization [facility] Address [address] [place] [address] Phone [phone] Care Team Providers Care Cad Specialist Name Role Phone Mekhi Reyes DO Primary Care Provid er Reason for Visit * Reason Onset Date Comments Medication Problem 10/14/2023 Encounter Details Date Type Department Care Team ([facility] st Contact Info) Description 10/14/[address] [phone] Mekhi Reyes DO [address] [place] [phone] Medication Problem Allergies Active Allergy Reactions Criticality Noted Date Comments Adhesive Tape High 01/09/2023 Other Reaction(s): TEARS SKIN documented as of this encounter (statuses as of 10/14/2023) Medications Medication Sig Dispensed Refills Start Date End Date Status Vitamin D3 1.25 MG (83043 UT) Oral Capsule Take 1 Capsule by [...] the morning. 90 Tablet 3 11/18/2022 Active traZODone HCl 50 MG Oral [...] ndications:COPD, group D, by GOLD 2017 classification (HCC) Inhale 1 Puff by mouth daily. 60 Blister Dosing Unit 5 03/17/2023 Active Acetaminophen 325 MG Oral Capsule Take [...] for Nausea. 30 Tablet 0 08/11/2023 Active Celecoxib 100 MG Oral Capsule (CeleBREX)Indicatio ns:DDD (degenerative disc disease), lumbar Take 1 capsule by mouth in the morning for pain. 90 Capsule 1 09/28/2023 Active Ipratropium-Albuter ol 0.5-2.5 (3) MG/3ML Inhalation Solution (Duoneb)Indications :Severe persistent asthma with (acute) exacerbation,Chroni c hypoxemic respiratory failure (HCC) Inhale 3 mL via nebulizer every 4 hours as needed for Shortness of Breath or Wheezing. 100 mL 2 09/30/2023 Active Azithromycin 250 MG Oral Tablet (Zithromax)Indicati ons:COPD, group D, by GOLD 2017 classification ([facility]) Take 1 Tablet by mouth once a day on Thursday, Thursday, and Thursday only. 36 Tablet 3 10/14/2023 Active levoFLOXacin 250 MG Oral Tablet (Levaquin)Indicatio ns:COPD, group D, by GOLD 2017 classification ([facility]) Take 2 Tablets by mouth daily for 1 day, THEN 1 Tablet daily for 6 days. Rescue kit. 8 Tablet 0 10/14/2023 4 Active predniSONE 20 MG Oral Tablet (Deltasone)Indicati ons:COPD, group D, by GOLD 2017 classification ([facility]) Take 3 tabs for 3 days, 2 tabs for 3 days, 1 tab for 3 days, 1/2 tab for 3 days. Rescue kit. 20 Tablet 0 10/14/2023 Active Hospital, Clinic, or Other Facility Administered Medication Ordered Dose Route Frequency Start Date End Date Status Albuterol Sulfate (Proventil) (2.5 MG/3ML) 0.083% inhalation solution 2.5 mgIndications:Screening for respiratory condition 2.5 mg NEBULIZER ONCE PRN 04/01/2022 Active Albuterol Sulfate (Proventil) (2.5 MG/3ML) 0.083% inhalation solution 2.5 mgIndications:COPD, group D, by GOLD 2017 classification ([facility]),Interstitial pulmonary disease (HCC),Shortness of breath 2.5 mg NEBULIZER ONCE PRN 2023 04/02/2024 Active documented as of this encounter (statuses as of 10/14/2023) Active Problems Problem Noted Date Diagnosed Date Severe persistent asthma with (acute) exacerbati on 09/30/2023 LALO and COPD overlap syndrome 07/07/2023 Chronic [...] as of this encounter (statuses as of 10/14/2023) Resolved Problems Problem Noted Date Diagnosed Date [...] as of this encounter (statuses as of 10/14/2023) Immunizations Name Administration Dates Next Due COVID-19 mRNA, LNP-s, No Pre serve, 2-Dose Series (Pfizer) 05/15/2021,09/12/2020,08/22/2020 Hepatitis B, 20+ yrs 11/19/2021,05/20/20 21(Deferred: Contraindication),11/13/2020 12/13/2020 Pneumococcal Conjugate Vacc, 13 Valent (Prevnar) 04/20/2018 Pneumococcal Conjugate Vacci ne, 20-valent ([id number]) 01/27/2022 Seasonal Influenza Virus Vac cine, Unspecified [...] Miscellaneous Notes * Telephone Encounter - Allen Alejo, [facility] - 10/14/2023 12:49 PM EDT Counseled patient on how to take her medications prescribed today and advised that the levofloxacinand prednisone are for her rescue kit. Patient verbalized understanding. Patient stated they received the levofloxacin and prednisone from [facility] but not the azithromycin. Upon chart review azithromycin script was received by pharmacy. Advised patient to call [facility] back to have them fill it and to give us a call if she runs into any issues. Thank you, Allen Alejo, PharmD Clinical Pharmacist [facility] 10/14/23 12:51 PM [phone] * Telephone Encounter - Ledy Thakur PHARM Tech - 10/14/2023 12:39 PM EDT Pt does not understand how to george the medications given to her today [facility] Thank you for your assistance Ledy Thakur Change Management Facilitator II [facility] ([facility] (Former[facility]) 10/14/2023,12:40 PM documented in this encounter Plan of Treatment Upcoming Encounters Date Type Department Care Team (Late st Contact Info) Description 10/22/2023 8:30 AM EDT Appointment Radiology, [id number] [place] [address] 10/23/2023 8:40 AM EDT Office Visit [address] [phone] Mekhi Reyes DO [address] [place] [phone] 11/13/2023 11:20 AM EDT Office Visit [address] [phone] Maritza Dumont MD [address] [place] [phone] Health Maintenance Due Date Last Done Comments DTaP,Tdap,and Td Vaccines (1 - Tdap) 1981 HPV/Co-Test 1992 Cologuard 2007 Fecal Occult Blood Test 2007 Sigmoidoscopy 2007 *COPD SEVERITY VERIFIED BY PFT 09/05/2020 Hepatitis B (3 of 3 - 19+ 3-dose series) 01/14/2022 11/19/2021, 11/13/2020 COVID-19 Vaccine ( - 2022-24 season) 2023 05/29/2021, 05/15/2021, 09/12/2020, Additional history exists Diabetic Eye Exam 07/18/2023 07/18/2022, , 04/04/2022, Additional history exists Mammogram 07/29/2023 07/29/2022, 04/0 07/2020, 08/30/2020, Additional history exists *SPIROMETRY ONCE FOR ASTHMA-ADULT 10/02/2023 Diabetic Foot Exam 11/19/2023 11/18/2022, 0 11/19/2021, 09/13/2020 Cervical Cancer Screening 12/19/2023 Pap Smear 12/19/2023 12/18/2020 HbA1c 01/05/2024 07/07/2023, 01/01, 09/26/2021, Additional history exists Depression Screening 2024 2023 Albumin/Creatinine Ratio 07/07/2024 07/07/2023, 07/31 GFR 07/07/2024 07/07/2023, 05/0 06/2022, 07/01/2022, Additional history exists O2 ASSESSMENT COMPLETED IN PAST YEAR FOR COPD 10/13/2024 10/14/2023 Lipid Panel 07/07/2028 07/07/2023, 01/01, 09/26/2021, Additional [...] filedocumented as of this encounter Care Teams Cad Specialist Relationship Specialty Start Date End Date Mekhi Reyes DO [address] [place] [id number] PCP - General Internal Medicine 12/10/22 documented as of this encounter
--- OUTSIDE RECORDS SUMMARY | 2023-10-22 23:14 | External Medical Summary | Summary of Care ---
Author Name Unknown Organization [facility] Address [address] [place] [address] Phone [phone] Care Team Providers Care Refrigeration Engine Operator Name Role Phone Mekhi Reyes Primary Care Provid er Encounter Details Date Type Department Care Team (Late st Contact Info) Description 10/12/2023 10:30 AM EDT Scheduled Telephone Care Coordination and Integration [address], [place] [phone] Leti Jaramillo, Community [facility] Quality Control Projectionist [address], [place] [phone] Allergies Active Allergy Reactions Criticality Noted Date Comments Adhesive Tape High 01/09/2023 Other Reaction(s): TEARS SKIN documented as of this encounter (statuses as of 10/12/2023) Medications Medication Sig Dispensed Refills Start Date End Date Status Vitamin D3 1.25 MG (10029 UT) Oral Capsule Take 1 Capsule by [...] Base) MCG/ACT Inhalation Aerosol SolutionIndications :COPD exacerbation ([facility]) Inhale 2 Puffs by mouth every 6 hours as needed for Shortness of Breath or Wheezing. 8.5 g 5 12/16/2022 Active Spacer/Aero-Holding Chambers Device Use with inhaler. 1 Each 0 12/16/2022 Active CPAP every night at bedtime. 0 Active Trelegy Ellipta 200-62.5-25 MCG/ACT Aerosol Powder Breath Activated (Fluticasone-Umecli dinium-Vilanterol)I ndications:COPD, group D, by GOLD 2017 classification ([facility]) Inhale 1 Puff by mouth daily. 60 [...] 3 days 20 Tablet 0 09/02/2023 Active Celecoxib 100 MG Oral Capsule (CeleBREX)Indicatio ns:DDD (degenerative disc disease), lumbar Take 1 capsule by mouth in the morning for pain. 90 Capsule 1 09/28/2023 Active Azithromycin 250 MG Oral Tablet (Zithromax) Take 1 Tablet by mouth once a day on Thursday, Thursday, and Thursday only. 0 Active Ipratropium-Albuter ol 0.5-2.5 (3) MG/3ML Inhalation Solution (Duoneb)Indications :Severe persistent asthma with (acute) exacerbation,Chroni c hypoxemic respiratory failure (HCC) Inhale 3 mL via nebulizer every 4 hours as needed for Shortness of Breath or Wheezing. 100 mL 2 09/30/2023 Active Hospital, Clinic, or Other Facility Administered [...] as of this encounter (statuses as of 10/12/2023) Active Problems Problem Noted Date Diagnosed Date [...] as of this encounter (statuses as of 10/12/2023) Resolved Problems Problem Noted Date Diagnosed Date [...] as of this encounter (statuses as of 10/12/2023) Immunizations Name Administration Dates Next Due COVID-19 mRNA, LNP-s, No Pre serve, 2-Dose Series (MyScreen) 05/15/2021,09/12/2020,08/22/2020 Hepatitis B, 20+ yrs 11/19/2021,05/20/20 21(Deferred: Contraindication),11/13/2020 12/13/2020 Pneumococcal Conjugate Vacc, 13 Valent (Prevnar) 04/20/2018 Pneumococcal Conjugate Vacci ne, 20-valent ([id number]) 01/27/2022 Seasonal Influenza Virus Vac cine, Unspecified [...] as of this encounter Progress Notes * Leti Jaramillo Community Health Quality Control Projectionist - 10/12/2023 1:16 PM EDT Telemedicine visit: No Community Health Quality Control Projectionist (KAITLYNN) documentation: Per RNCM, no need to contact pt today. She spoke with her recently. Leti Jaramillo , Community Health Worker Electronically signed by Leti Jaramillo Community Health Quality Control Projectionist at 10/12/2023 1:16 PM EDT * Leti Jaramillo Community Health Quality Control Projectionist - 10/12/2023 10:33 AM EDT Telemedicine visit: No Community Health Quality Control Projectionist (KAITLYNN) documentation: Attempted to reach pt for week 2 keaton call and CAT basement. Left message for pt to return call to [phone] Leti Jaramillo Community Health Worker [phone] [email or web address] Electronically signed by Leti Jaramillo [facility] Health Quality Control Projectionist at 10/12/2023 1:16 PM EDT documented in this encounter Plan of Treatment Upcoming Encounters Date Type Department Care Team ([facility] Contact Info) Description 10/14/2023 12:00 PM EDT Nurse Only Ancillary [address] [phone] [facility] [address] [phone] 10/23/2023 8:40 AM EDT Office Visit Family [address] [phone] Mekhi Reyes, DO [address] [place] [address] Health Maintenance Due Date Last Done Comments DTaP,Tdap,and Td Vaccines (1 - Tdap) 1981 HPV/Co-Test 1992 Cologuard 2007 Fecal Occult Blood Test 2007 Sigmoidoscopy 2007 *COPD SEVERITY VERIFIED BY PFT 09/05/2020 Hepatitis B (3 of 3 - 19+ 3-dose series) 01/14/2022 11/19/2021, 11/13/2020 COVID-19 Vaccine (2022- season) 2023 05/29/2021, 05/15/2021, 09/12/2020, Additional history [...] 07/07/2024 07/07/2023, 2 09/2020 GFR 07/07/2024 07/07/2023, 0506/2022, 07/01/2022, Additional history exists O2 ASSESSMENT COMPLETED IN PAST YEAR FOR COPD 09/29/2024 09/30/2023 Lipid Panel 07/07/2028 07/07/2023, 01/01, 09/26/2021, Additional [...] filedocumented as of this encounter Care Teams Refrigeration Engine Operator Relationship Specialty Start Date End Date Mekhi Reyes DO [address] [place] [phone] PCP - General Internal Medicine 12/10/22 documented as of this encounter
--- OUTSIDE RECORDS SUMMARY | 2023-10-22 23:14 | External Medical Summary | Summary of Care ---
Author Name Unknown Organization [facility] Address [address] [place] [address] Phone [phone] Care Team Providers Care Online Project Manager Name Role Phone Mekhi Reyes Primary Care Provid er Reason for Visit * Reason Comments COPD Short of Breath Irregular Heart Rate Will need Zio place d today per orders. Encounter Details Date Type Department Care Team (Latest Contact Info) Description 10/14/2023 9:40 AM EDT Office Visit [facility] [address] [place] [phone] Maritza Dumont MD [address] [place] [phone] Chronic hypoxemic respiratory failure (HCC)*; COPD, group D, by GOLD 2017 classification (HCC); Abnormal heart rate; Screening for cervical cancer; Encounter for screening mammogram for malignant neoplasm of breast Allergies Active Allergy Reactions Criticality Noted Date Comments Adhesive Tape High 01/09/2023 Other Reaction(s): TEARS SKIN documented as of this encounter (statuses as of 10/14/2023) Medications Medication Sig Dispensed Refills Start Date End Date Status Vitamin D3 1.25 MG (10778 UT) Oral Capsule Take 1 Capsule by [...] 8 weeks. 1 Each 0 01/28/20 Active Atorvastatin Calcium 40 MG Oral Tablet [...] mouth in the morning. 90 Tablet 11/19/19 23 Active traZODone HCl 50 MG Oral Tablet (Desyrel)Indicatio ns:Sleep disorder Take 1 Tablet by mouth every night at bedtime. 90 Tablet 11/19/19 23 Active Albuterol Sulfate HFA 108 (90 Base) MCG/ACT Inhalation Aerosol SolutionIndication s:COPD exacerbation ([facility]) Inhale 2 Puffs by mouth every 6 hours as needed for Shortness of Breath or Wheezing. 8.5 g 5 12/17/19 23 Active Spacer/Aero-Holdin g Chambers Device Use with inhaler. 1 Each 0 12/17/19 23 Active CPAP every night at bedtime. 0 Active Trelegy Ellipta 200-62.5-25 MCG/ACT Aerosol Powder Breath Activated (Fluticasone-Umecl idinium-Vilanterol )Indications:COPD, group D, by GOLD 2017 classification ([facility]) Inhale 1 Puff by mouth daily. 60 Blister Dosing Unit 5 03/17/20 23 Active Acetaminophen 325 MG Oral Capsule Take 2 Capsules by mouth. 0 05/05/20 22 Active traMADol HCl 50 MG Oral Tablet (Ultram)Indication s:DDD (degenerative disc disease), lumbar,Chronic pain syndrome Take 1 Tablet by mouth 2 times a day as needed for Pain, Severe. 60 Tablet 3 05/03/20 23 Active Silver sulfADIAZINE 1 % External Cream (Silvadene) Apply topically to affected area daily. Apply to burn. 400 g 1 05/14/20 23 Active Additional Information Patient not taking.Reported on 07/27/2023 Tezepelumab-ekko 210 MG/1.91ML Subcutaneous Solution Auto-injector Inject 1.91 mL under the skin every 4 weeks. 0 Active Lisinopril 2.5 MG Oral Tablet (Prinivil) Take 1 Tablet by mouth in the morning. 30 Tablet 11 05/21/20 23 Active Benzonatate 100 MG Oral Capsule (Tessalon Perles)Indications :Sinobronchitis Take 1 Capsule by mouth 3 times a day as needed for Cough. Do not cut, crush, or chew. 50 Capsule 1 07/27/19 24 Active Ondansetron HCl 4 MG Oral Tablet Take 1 Tablet by mouth every 6 hours as needed for Nausea. 30 Tablet 0 08/11/19 24 Active Celecoxib 100 MG Oral Capsule (CeleBREX)Indicati ons:DDD (degenerative disc disease), lumbar Take 1 capsule by mouth in the morning for pain. 90 Capsule 1 09/28/19 24 Active Ipratropium-Albute rol 0.5-2.5 (3) MG/3ML Inhalation Solution (Duoneb)Indication s:Severe persistent asthma with (acute) exacerbation,Chron ic hypoxemic respiratory failure (HCC) Inhale 3 mL via nebulizer every 4 hours as needed for Shortness of Breath or Wheezing. 100 mL 2 09/30/19 24 Active Azithromycin 250 MG Oral Tablet (Zithromax)Indicat ions:COPD, group D, by GOLD 2017 classification ([facility]) Take 1 Tablet by mouth once a day on Thursday, Thursday, and Thursday only. 36 Tablet 3 10/14/19 24 Active levoFLOXacin 250 MG Oral Tablet (Levaquin)Indicati ons:COPD, group D, by GOLD 2017 classification ([facility]) Take 2 Tablets by mouth daily for 1 day, THEN 1 Tablet daily for 6 days. Rescue kit. 8 Tablet 0 10/14/19 24 024 Active predniSONE 20 MG Oral Tablet (Deltasone)Indicat ions:COPD, group D, by GOLD 2017 classification ([facility]) Take 3 tabs for 3 days, 2 tabs for 3 days, 1 tab for 3 days, 1/2 tab for 3 days. Rescue kit. 20 Tablet 0 10/14/19 24 Active Doxycycline Hyclate 100 MG Oral CapsuleIndications :Sinobronchitis Take 1 Capsule by mouth in the morning and 1 Capsule before bedtime. Take for 7 days. 20 Capsule 0 09/02/19 24 024 Discontinued predniSONE 20 MG Oral Tablet (Deltasone)Indicat ions:Sinobronchiti s Take 3 tabs for 3 days, 2 tabs for 3 days, 1 tab for 3 days, 1/2 tab for 3 days 20 Tablet 0 09/02/19 24 024 Discontinued(Re fill) Azithromycin 250 MG Oral Tablet (Zithromax) Take 1 Tablet by mouth once a day on Thursday, Thursday, and Thursday only. 0 024 Discontinued(Re fill) Hospital, Clinic, or Other Facility Administered Medication Ordered Dose Route Frequency Start Date End Date Status Albuterol Sulfate (Proventil) (2.5 MG/3ML) 0.083% inhalation solution 2.5 mgIndications:Screening for respiratory condition 2.5 mg NEBULIZER ONCE PRN 04/01/2022 Active Albuterol Sulfate (Proventil) (2.5 MG/3ML) 0.083% inhalation solution 2.5 mgIndications:COPD, group D, by GOLD 2017 classification ([facility]),Interstitial pulmonary disease ([facility]),Shortness of breath 2.5 mg NEBULIZER ONCE PRN 2023 04/02/2024 Active methylPREDNISolone sodium succ (SOLU-Medrol) inj 125 mgIndications:COPD, group D, by GOLD 2017 classification ([facility]) 125 mg IM ONCE 10/14/2023 10/14/2023 Ende d documented as of this encounter (statuses as [...] mRNA, LNP-s, No Pre serve, 2-Dose Series (ProFundCom) 05/15/2021,09/12/2020,08/22/2020 Hepatitis B, 20+ yrs 11/19/2021,05/20/20 21(Deferred: Contraindication),11/13/2020 12/13/2020 Pneumococcal Conjugate Vacc, 13 Valent (Prevnar) 04/20/2018 Pneumococcal Conjugate Vacci ne, 20-valent ([id number]) 01/27/2022 Seasonal Influenza Virus Vac cine, Unspecified [...] 1 976 - 2004 Smokeless Tobacco: Never Tobacco Cessation:Counseling Given: Not [...] Sign Reading Time Taken Comments Blood Pressure 90/54 10/14/2023 9:26 AM EDT Pulse 112 10/14/2023 9:26 AM EDT Temperature 36.6 C (97.8 F) 10/14/2023 9:26 AM ED T Respiratory Rate 22 10/14/2023 9:26 AM EDT Oxygen Saturation 95% 10/14/2023 9:26 AM EDT Inhaled Oxygen Concentration - - Weight 76.7 kg (169 lb) 10/14/2023 9:26 AM EDT Height - - Body Mass Index 27.28 04/14/2023 9:27 AM EST documented in this encounter Patient Instructions * Patient Instructions* Kyrie Pavon LPN - 10/14/2023 9:33 AM EDT Images from the original note were not included. Mammography Mammography is an X-ray exam of your breast tissue. The image it makes is called a mammogram. A mammogram can help find problems with your breasts, such as cysts or cancer. Mammography is the best breast cancer screening tool available. Have screening mammograms and professional breast exams as often as your healthcare provider recommends. Also, be sure you know how your breasts normally look and feel. This makes it easier to noticeany changes. Report changes to your healthcare provider as soon as possible. How do I get ready for a mammogram? Schedule the test for 1 week after your period. Your breasts are less sore then. Make sure your clinic gets images of your last mammogram if it was done somewhere else. This lets the provider compare the 2 sets of images for any changes. On the morning of your test, dont use deodorant, powder, or perfume. Wear a top that you can take off easily. What happens during a mammogram? You will need to undress from the waist up. The technologist will position your breast to get the best test results. Each of your breasts will be compressed one at a time. This helps get the most complete X-ray image. Your breasts will be repositioned to get at least 2 separate views of each breast. What happens after a mammogram? More X-rays are sometimes needed. If not done at the time of your initial mammogram, youll be called to schedule them. You should receive your test results in writing. Ask about this on the day of your appointment. Have mammograms as often as your healthcare provider recommends. Let the technologist know if: Youre or think you may be You have breast implants You have any scars or moles on or near your breasts Youve had a breast biopsy or surgery Youre Date Last Reviewed: 10/30/201619998862-5758 [employer]. [address] [place] [address], [place] [address]. All rights reserved. This information is not intended as a substitute for professional medical care. Always follow your healthcare professional's instructions documented in this encounter Progress Notes * Maritza Dumont MD - 10/14/2023 10:28 AM EDT Images from the original note were not included. History of Present Illness Krystin Jaffe is a 63 year old female with chronic hypoxic respiratory failure on 2 L NC, COPD group D, interstitial lung disease, severe asthma, LALO, type 2 diabetes, CKD 3A, Crohn's disease that presents for COPD, Short of Breath, and Irregular Heart Rate (Will need Zio placed today per orders.) COPD She complains of shortness of breath. Short of Breath Irregular Heart Rate Associated symptoms include an irregular heartbeat and shortness of breath. Presents for acute visit. Also was recently admitted at [facility] due to acute on chronic COPD exacerbation and hypoxia 09/23/23 - 09/26/23. She was treated with solumedrol, duonebs, and increased oxygen with improvement in symptoms. She was weaned back to her baseline 2 L NC at discharge. She was sent home with a prednisone taper, as well as to start azithromycin 250 mg three times weekly for exacerbation prophylaxis. She follows with [facility] and will see them later this month. Today she presents due to continued shortness of breath with episodes of hypoxia with exertion at home on her continuous home monitoring. Cough has improved. Just feels tight with bronchospasms. Using trelegy as directed. Using duonebs QID. Had accidentally been taking azithromycin every day, so she is out now. Also noted she is having wide swings in heart rate on home monitor, from 40s to 140s. She is asymptomatic. No history of afib. While hospitalized she did have tachycardia induced from albuterol Physical Exam Vitals: 10/14/23 0926 Temp: 36.6 C (97.8 F) Pulse: 112 Resp: 22 SpO2: 95% BP: 90/54 Physical Exam Vitals and nursing note reviewed. Constitutional: General: She is not in acute distress. Appearance: Normal appearance. She is ill-appearing. Comments: Chronically ill appearing HENT: Head: Normocephalic and atraumatic. Nose: Nose normal. Mouth/Throat: Pharynx: Oropharynx is clear. Eyes: Conjunctiva/sclera: Conjunctivae normal. Cardiovascular: Rate and Rhythm: Regular rhythm. Tachycardia present. Pulses: Normal pulses. Heart sounds: Normal heart sounds. No murmur heard. Pulmonary: Effort: Pulmonary effort is normal. No respiratory distress. Comments: Diminished breath sounds with wheezing throughout. On 2 L NC Musculoskeletal: Right lower leg: No edema. Left lower leg: No edema. Skin: General: Skin is warm and dry. Capillary Refill: Capillary refill takes less than 2 seconds. Findings: No rash. Neurological: General: No focal deficit present. Mental Status: She is alert and oriented to person, place, and time. Mental status is at baseline. I have reviewed the following results: None Assessment and Plan Chronic hypoxemic respiratory failure (HCC) COPD, group D, by GOLD 2017 classification (HCC) Given solumedrol IM in the office today due to persistent bronchaspasm. Advised to use trelegy daily with duonebs every 4 hours while awake. Start azithromycin three times weekly. Rescue kit prescribed: levofloxacin and prednisone taper. Also advised to increase oxygen to 3 L NC with exertion due to exertional hypoxia and dyspnea. Close follow up with pulmonology - Azithromycin 250 MG Oral Tablet (Zithromax); Take 1 Tablet by mouth once a day on Thursday, Thursday, and Thursday only. - levoFLOXacin 250 MG Oral Tablet (Levaquin); Take 2 Tablets by mouth daily for 1 day, THEN 1 Tablet daily for 6 days. Rescue kit. - predniSONE 20 MG Oral Tablet (Deltasone); Take 3 tabs for 3 days, 2 tabs for 3 days, 1 tab for 3 days, 1/2 tab for 3 days. Rescue kit. Abnormal heart rate Ranging 40-140s on home continuous monitor. Check zio - EXTERNAL EKG 8 TO 15 DAYS; Future Screening for cervical cancer Schedule with us Encounter for screening mammogram for malignant neoplasm of breast - MAMMOGRAM SCREENING JACQUE BILATERAL; Future Wrap-Up Follow Up: Return for Keep scheduled follow up. | For: Keep scheduled follow up | Check-out note: Schedule mammo Schedule pap with female provider Time: I spent a total of 20-29 minutes (exact time 27 mins) on the date of service in preparation, delivery, and documentation of the care provided to Krystin Jaffe excluding any time spent in the performance of separately billed services. * Kyrie Pavon LPN - 10/14/2023 9:33 AM EDT Images from the original note were not included. The importance of having a yearly diabetic eye exam has been discussed with patient. Order and/or Referral placed along with patient instructions. Provider made aware. Kyrie Pavon LPN Diabetic Retinopathy: Evaluating Your Eyes Diabetic retinopathy is a condition that happens when diabetes damages blood vessels in the rear ofthe eye. It can lead to vision loss. To help catch it early, have a complete dilated eye exam at least once a year. During the exam, the eye healthcare provider will review your medical history, examine your eyes, and check your vision. Women who are and have pre-existing type 1 or type 2 diabetes have an increased risk of retinopathy. Women with diabetes should have an eye exam before or in the first trimester. They should continue to be monitored every trimester and for 1 year after delivery, depending on the severity of the retinopathy. The retina is the light-sensitive part of the eye that allows you to see. High blood sugar can damage blood vessels of the retina and cause them to leak or bleed. This damage can lead to abnormal blood vessel growth. This condition is called diabetic retinopathy. You may not have symptoms early in the disease. Later, there may be floaters, blurred vision, or poor night vision. There may also be partial or complete vision loss. Early cases of diabetic retinopathy can be treated by carefully controlling blood sugar, blood pressure, and cholesterol. Surgery or laser treatments may help restore lost vision. Laser surgery can shrink abnormal blood vessels or close ones that are leaking. Medicines injected in the eye can help decrease swelling of the retina. Home care Take all medicines, including insulin or oral diabetic medicine, exactly as prescribed. Follow the diet advised by your healthcare provider. If you have high cholesterol, follow a low-fat, low-cholesterol diet. Monitor blood sugars as advised. Try to achieve your ideal weight. If you smoke, quit smoking. Tobacco use worsens the effect of diabetes on your blood vessels. If you have high blood pressure, consider buying an automatic blood pressure machine. These are available at most pharmacies. Use this to monitor your blood pressure. Report your blood pressure readings to your healthcare provider. Exercise regularly. Follow-up care Follow up with your healthcare provider, or as advised. You must have a complete eye exam at least once a year, more often if needed. Untreated diabetic retinopathy can lead to complete loss of vision. Occupational therapists can help you adapt to any vision loss you have, including learning techniques to safely administer insulin. When to seek medical advice Call your healthcare provider right away if any of these occur. Increasing blurriness or any sudden changes in your vision Sudden flashes of light inside your eye New floaters (small dots or strings that seem to be moving across your field of vision) Eye pain, redness, or discharge from your eyelid New dark spots appearing in your field of vision Halos around lights Dimness of vision Partial or complete loss of vision Women with diabetes should have a complete eye exam before becoming , or as soon as possible when they find out they are . Retinopathy sometimes worsens during . Your eye exam Your eye healthcare provider uses an eye chart and other tools to check your vision. Then he or sheexamines your eyes for signs of disease. You are given eye drops to widen (dilate) your pupils. Youmay have one or more of the following tests: Tonometry to measure fluid pressure inside the eye. Slit lamp exam to allow the healthcare provider to view the structures of your eye. Ultrasound to create an image of the eye using sound waves. Ultrasound may be used if blood is found in the clear gel that fills the eye (vitreous). Ocular coherence tomography (OCT) to create an image of the retina using light waves. This shows ifthere is fluid leaking into certain parts of the eye. It can also measure the thickness of the retina. Fluorescein angiography This test may be done to check the health of the inside lining of the eye (retina). It also checks the tiny blood vessels (capillaries) that carry blood to the retina. During the test: Photographs are taken of the retina. A dye is then injected into the bloodstream through the arm or hand. The dye travels to the capillaries in the eye. More photographs are taken of the retina. The dye causes the capillaries to stand out on the photographs. You may feel brief nausea during the procedure. For a few hours after the test, your skin, eyes, and urine may appear yellow. Talk with your healthcare provider for more information about this test. Date Last Reviewed: 10/31/201519992589-8041 [employer]. [address] [place] [address], [place] [address]. All rights reserved. This information is not intended as a substitute for professional medical care. Always follow your healthcare professional's instructions. documented in this encounter Nursing Notes * Kyrie Pavon LPN - 10/14/2023 9:30 AM EDT The patient has been properly identified by confirmation of name and date of . Chief Complaint Patient presents with COPD Short of Breath Irregular Heart Rate Will need Zio placed today per orders. Has question whether or not she should still be taking the Zithromax? documented in this encounter Plan of Treatment Upcoming Encounters Date Type Department Care Team ([facility] st Contact Info) Description 10/22/2023 8:30 AM EDT Appointment Radiology, [facility] [address] [place] [address] 10/23/2023 8:40 AM EDT Office Visit [address] [phone] Mekhi Reyes DO [address] [place] [id number] 11/13/2023 11:20 AM EDT Office Visit [address] [phone] Maritza Dumont MD [address] [place] [phone] Scheduled Orders Name Type Priority Associated Diagnoses Orde r Schedule MAMMOGRAM SCREENING JACQUE BILATERAL Medical Imaging Routine Encounter for screening mammogram for malignant neoplasm of breast Expected: 10/14/2023, Expires: 11/13/2024 EXTERNAL EKG 8 TO 15 DAYS Holter Routine Abnormal heart rate Expected: 10/14/2023 (Approximate), Expires: 11/14/2023 Health Maintenance Due Date Last Done Comments [...] COPD 10/13/2024 10/14/2023 Lipid Panel 07/07/2028 07/07/2023, 3 , 09/26/2021, [...] of this encounter Visit Diagnoses Diagnosis Chronic hypoxemic respiratory failure (HCC)- Primary Chronic respiratory failure COPD, group D, by GOLD 2017 classification (HCC) Abnormal heart rate Other abnormal heart sounds Screening for cervical cancer Screening for malignant neoplasm of the cervix Encounter for screening mammogram for malignant neoplasm of breast Other screening mammogram documented in this encounter Administered Medications Inactive Administered Medications - up to 3 most recent administrations Medication Order MAR Action Action Date Dose Rate Site methylPREDNISolone sodium succ (SOLU-Medrol) inj 125 mg 125 mg, Intramuscular, ONCE, On Thu10/14/23 at 1045, For 1 dose Given 10/14/2023 10:07 AM EDT 125 mg Dorsogluteal Right documented in this encounter Care Teams Online Project Manager Relationship Specialty Start Date End Date Mekhi Reyes DO [address] [place] [address] [phone] PCP - General Internal Medicine 12/10/22 documented as of this encounter"
--- OUTSIDE RECORDS SUMMARY | 2023-10-22 23:14 | External Medical Summary | Summary of Care ---
Author Name Unknown Organization [facility] Address [address] [place] [address] Phone [phone] Care Team Providers Care Electrician Technician Name Role Phone Mekhi Reyes Primary Care Provid er Encounter Details Date Type Department Care Team (Late st Contact Info) Description 10/19/2023 11:15 AM EDT Scheduled Telephone Care Coordination and Integration [address], [place] [phone] Leti Jaramillo, Community Health Corporate Real Estate Manager [address], [place] [phone] Allergies Active Allergy Reactions Criticality Noted Date Comments Adhesive Tape High 01/09/2023 Other Reaction(s): TEARS SKIN documented as of this encounter (statuses as of 10/19/2023) Medications Medication Sig Dispensed Refills Start Date End Date Status Vitamin D3 1.25 MG (58284 UT) Oral Capsule Take 1 Capsule by mouth in the morning. Active Womens Multi Oral Capsule Take 1 Tablet by mouth daily. Active D-Care Glucometer w/Device Kit Use as directed . Use to test BS; e11.9, may substitute for insurance coverage 1 Kit 10/14/2021 Active OneTouch Delica Lancets 30G Use to test blood sugar twice daily; e11.9 200 Each 3 10/14/2021 Active OneTouch Verio In Vitro Strip (Glucose Blood) Use to test blood sugar twice daily; e11.9 200 Strip 3 10/14/2021 Active inFLIXimab 100 MG Intravenous Solution Reconstituted Administer 800 mg intravenously every 8 weeks. 1 Each 01/27/2022 Active Atorvastatin Calcium 40 MG Oral [...] Chambers Device Use with inhaler. 1 Each 12/16/2022 Active CPAP every night at bedtime. Active Trelegy Ellipta 200-62.5-25 MCG/ACT Aerosol Powder Breath Activated (Fluticasone-Umecli dinium-Vilanterol)I ndications:COPD, group D, by GOLD 2017 classification (HCC) Inhale 1 Puff by mouth daily. 60 Blister Dosing Unit 5 03/17/2023 Active Acetaminophen 325 MG Oral Capsule Take 2 Capsules by mouth. 05/05/2022 Active traMADol HCl 50 MG Oral [...] mL under the skin every 4 weeks. Active Lisinopril 2.5 MG Oral Tablet (Prinivil) [...] hours as needed for Nausea. 30 Tablet 08/11/2023 Active Celecoxib 100 MG Oral Capsule [...] ons:COPD, group D, by GOLD 2017 classification ([facility]) Take 1 Tablet by mouth once a day on Thursday, Thursday, and Thursday only. 36 Tablet 3 10/14/2023 Active levoFLOXacin 250 MG Oral Tablet (Levaquin)Indicatio ns:COPD, group D, by GOLD 2017 classification ([facility]) Take 2 Tablets by mouth daily for 1 day, THEN 1 Tablet daily for 6 days. Rescue kit. 8 Tablet 10/14/2023 Active predniSONE 20 MG Oral Tablet (Deltasone)Indicati ons:COPD, group D, by GOLD 2017 classification ([facility]) Take 3 tabs for 3 days, 2 tabs for 3 days, 1 tab for 3 days, 1/2 tab for 3 days. Rescue kit. 20 Tablet 10/14/2023 Active Hospital, Clinic, or Other Facility Administered Medication Ordered Dose Route Frequency Start Date End Date Status Albuterol Sulfate (Proventil) (2.5 MG/3ML) 0.083% inhalation solution 2.5 mgIndications:Screening for respiratory condition 2.5 mg NEBULIZER ONCE PRN 04/01/2022 Active Albuterol Sulfate (Proventil) (2.5 MG/3ML) 0.083% inhalation solution 2.5 mgIndications:COPD, group D, by GOLD 2017 classification ([facility]),Interstitial pulmonary disease (HCC),Shortness of breath 2.5 mg NEBULIZER ONCE PRN 2023 04/02/2024 Active documented as of this encounter (statuses as of 10/19/2023) Active Problems Problem Noted Date Diagnosed Date [...] as of this encounter (statuses as of 10/19/2023) Resolved Problems Problem Noted Date Diagnosed Date [...] as of this encounter (statuses as of 10/19/2023) Immunizations Name Administration Dates Next Due COVID-19 mRNA, LNP-s, No Pre serve, 2-Dose Series ([employer]) 05/15/2021,09/12/2020,08/22/2020 Hepatitis B, 20+ yrs 11/19/2021,05/20/20 21(Deferred: Contraindication),11/13/2020 12/13/2020 Pneumococcal Conjugate Vacc, 13 Valent (Prevnar) 04/20/2018 Pneumococcal Conjugate Vacci ne, 20-valent ([id number]) 01/27/2022 Seasonal Influenza Virus Vac cine, Unspecified [...] of this encounter Progress Notes * Leti Jaramillo, Community Health Corporate Real Estate Manager - 10/19/2023 1:59 PM EDT Telemedicine visit: No Community Health Corporate Real Estate Manager ([facility]) documentation: [facility] Telephonic Contact: Received request from primary CM to conduct phone contact. CM requested the following phone surveys: [facility] General Phone Survey. Results of survey can be seen below. Patient Current Tier: 2 Connected with patient via phone. Verified patient identity by name and . -Are there other changes in your health that you would like to talk to your nurse about? Spoke to pt she is SOB. It is not worse then before. Her rescue in [facility] did help. She has no other issues orconcerns. She does not check her weight. She does check her sugar at night and bp daily. -Would you like your nurse to contact you this week? no All abnormal responses were communicated to Primary CM. Reinforced to the patient that they should contact their primary CM if experiencing any of the following 3 Red Flags (as noted in Essette Goal): 1st Red Flag: increased shortness of breath- unable to walk throughout home without SOB 2nd Red Flag: worsening cough or change in colo/amt of sputum production 3rd Red Flag: falls Leti Jaramillo [facility] Health Corporate Real Estate Manager Electronically signed by Leti Jaramillo [facility] Health Corporate Real Estate Manager at 10/19/2023 2:05 PM EDT documented in this encounter Plan of Treatment Upcoming Encounters Date Type Department Care Team (Late st Contact Info) Description 10/22/2023 8:30 AM EDT Hospital Encounter Radiology, [facility] [address] [place] [address] 10/23/2023 8:40 AM EDT Office Visit [address] [phone] Mekhi Reyes DO [address] [place] [phone] 11/13/2023 11:20 AM EDT Office Visit [address] [phone] Maritza Dumont MD [address] [place] [phone] Health Maintenance Due Date Last Done Comments DTaP,Tdap,and Td Vaccines (1 - Tdap) 1981 HPV/Co-Test 1992 Cologuard 2007 Fecal Occult Blood Test 2007 Sigmoidoscopy 2007 *COPD SEVERITY VERIFIED BY PFT 09/05/2020 Hepatitis B (3 of 3 - 19+ 3-dose series) 01/14/2022 11/19/2021, 11/13/2020 COVID-19 Vaccine (2022-24 season) 2023 05/29/2021, 05/15/2021, 09/12/2020, Additional history exists Diabetic Eye Exam 07/18/2023 07/18/2022, , 04/04/2022, Additional history exists Mammogram 07/29/2023 07/29/2022, 0407/2020, 08/30/2020, Additional history exists *SPIROMETRY ONCE FOR [...] filedocumented as of this encounter Care Teams Electrician Technician Relationship Specialty Start Date End Date Mekhi Reyes DO [address] [place] [phone] PCP - General Internal Medicine 12/10/22 documented as of this encounter
--- OUTSIDE RECORDS SUMMARY | 2023-10-22 23:15 | External Medical Summary | Summary of Care ---
Author Name Unknown Organization [facility] Address [address] [place] [address] Phone [phone] Care Team Providers Care Web Application Tester Name Role Phone Mekhi Reyes Primary Care Provid er Encounter Details Date Type Department Care Team (Late st Contact Info) Description 10/05/2023 9:30 AM EDT Scheduled Telephone Care Coordination and Integration [address] [place], [place] [phone] Leti Jaramillo, Community Health Batter Scaler [address] [place], [place] [phone] Allergies Active Allergy Reactions Criticality Noted Date Comments Adhesive Tape High 01/09/2023 Other Reaction(s): TEARS SKIN documented as of this encounter (statuses as of 10/05/2023) Medications Medication Sig Dispensed Refills Start Date End Date Status Vitamin D3 1.25 MG (14412 UT) Oral Capsule Take 1 Capsule by [...] :COPD exacerbation ([facility]) Inhale 2 Puffs by mouth every 6 hours as needed for Shortness of Breath or Wheezing. 8.5 g 5 12/16/2022 Active Spacer/Aero-Holding Chambers Device Use with inhaler. 1 Each 0 12/16/2022 Active CPAP every night at bedtime. 0 Active Trelegy Ellipta 200-62.5-25 MCG/ACT Aerosol Powder Breath Activated (Fluticasone-Umecli dinium-Vilanterol)I ndications:COPD, group D, by GOLD 2017 classification ([facility]) Inhale 1 Puff by mouth daily. 60 [...] as of this encounter (statuses as of 10/05/2023) Active Problems Problem Noted Date Diagnosed Date [...] as of this encounter (statuses as of 10/05/2023) Resolved Problems Problem Noted Date Diagnosed Date [...] as of this encounter (statuses as of 10/05/2023) Immunizations Name Administration Dates Next Due COVID-19 mRNA, LNP-s, No Pre serve, 2-Dose Series ([employer]) 05/15/2021,09/12/2020,08/22/2020 Hepatitis B, 20+ yrs 11/19/2021,05/20/20 21(Deferred: Contraindication),11/13/2020 12/13/2020 Pneumococcal Conjugate Vacc, 13 Valent (Prevnar) 04/20/2018 Pneumococcal Conjugate Vacci ne, 20-valent ([id number]) 01/27/2022 Seasonal Influenza Virus Vac cine, Unspecified [...] Progress Notes * Leti Jaramillo, Community Health Batter Scaler - 10/05/2023 1:32 PM EDT Telemedicine visit: No Community Health Batter Scaler ([facility]) documentation: [facility] Telephonic Contact: Received request from primary CM to conduct phone contact. CM requested the following phone surveys: [facility] General Phone Survey and [facility] COPD Phone Survey. Results of survey can be seen below. Patient Current Tier: 2 Connected with patient via phone. Verified patient identity by name and . -Are there other changes in your health that you would like to talk to your nurse about? Spoke withpt. She is having SOB today. She had to wear her oxygen. She was SOB just walking to her bathroom and back to the chair. Denies any other sx's/. -Would you like your nurse to contact you this week? All abnormal responses were communicated to Primary CM. Reinforced to the patient that they should contact their primary CM if experiencing any of the following 3 Red Flags (as noted in Essette Goal): 1st Red Flag: increased sob unable to walk throughout home without sob 2nd Red Flag: worsening cough or change in color/amt of sputum production 3rd Red Flag: talk [facility] Phone Contact: COPD Call for: Tier: 2 -Patient identity verified by full name and . -In the last month have you had increased or new trouble breathing, or has wheezing gotten worse? yes -In the last month have you had a NEW or worsening cough with mucous? no -In the last month have you had any symptoms of cold or had a fever? no -In the last month have you been using your inhalers more than usual? no -In the last month have you had to start sleeping sitting up in a chair? no -In the last month have you had new or increased difficulty in breathing with normal activities such as bathing or dressing? yes -Do you use oxygen? yes -In the last month have you been eating less then you normally do? no -Are there other changes in your health that you would like to talk to your nurse about? -Would you like your nurse to contact you this week? All abnormal responses were communicated to primary or covering CM for follow up. Leti Jaramillo Community Health Worker * Leti Jaramillo Community Health Batter Scaler - 10/05/2023 10:21 AM EDT Telemedicine visit: No Community Health Batter Scaler ([facility]) documentation: Attempted to reach pt. For weekly keaton call. Left message to return call. Will try to reach pt later today. Leti Jaramillo Community Health Worker documented in this encounter Plan of Treatment Upcoming Encounters Date Type Department Care Team ([facility] st Contact Info) Description 10/23/2023 8:40 AM EDT Office Visit [facility] [address] [place] [phone] Amy Mekhi SrDO [address] [place] [phone] Health Maintenance Due Date Last Done Comments DTaP,Tdap,and Td Vaccines (1 - Tdap) 1981 HPV/Co-Test 1992 Cologuard 2007 Fecal Occult Blood Test 2007 Sigmoidoscopy 2007 *COPD SEVERITY VERIFIED BY PFT 09/05/2020 Hepatitis B (3 of 3 - 19+ 3-dose series) 01/14/2022 11/19/2021, 11/13/2020 COVID-19 Vaccine ( season) 2023 05/29/2021, 05/15/2021, 09/12/2020, Additional history exists Diabetic Eye Exam 07/18/2023 07/18/2022, , 04/04/2022, Additional history exists Mammogram 07/29/2023 07/29/2022, 040 07/2020, 08/30/2020, Additional history exists *SPIROMETRY ONCE FOR ASTHMA-ADULT 10/02/2023 Diabetic Foot Exam 11/19/2023 11/18/2022, 0 11/19/2021, 09/13/2020 Cervical Cancer Screening 12/19/2023 Pap Smear 12/19/2023 12/18/2020 HbA1c 01/05/2024 07/07/2023, 08/, 09/26/2021, Additional history exists Depression Screening 2024 2023 Albumin/Creatinine Ratio 07/07/2024 07/07/2023, 032 09/2020 GFR 07/07/2024 07/07/2023, 05/0 06/2022, 07/01/2022, [...] filedocumented as of this encounter Care Teams Web Application Tester Relationship Specialty Start Date End Date Mekhi Reyes DO [address] [place] [phone] PCP - General Internal Medicine 12/10/22 documented as of this encounter
--- OUTSIDE RECORDS SUMMARY | 2023-10-22 23:15 | External Medical Summary | Summary of Care ---
Author Name Unknown Organization [facility] Address [address] [place] [address] Phone [phone] Care Team Providers Care Seed Analysis Laboratory Assistant Name Role Phone Mekhi Reyes DO Primary Care Provid er Reason for Visit * Reason Onset Date Comments Home Monitoring Orders Only 10/05/2023 Encounter Details Date Type Department Care Team ([facility] st Contact Info) Description 10/05/2023 Home Monitoring [address] [phone] Mekhi Reyes DO [address] [place] [phone] COPD exacerbation (HCC)* Allergies Active Allergy Reactions Criticality Noted Date Comments Adhesive Tape High 01/09/2023 Other Reaction(s): TEARS SKIN documented as of this encounter (statuses as of 10/05/2023) Medications Medication Sig Dispensed Refills Start Date End Date Status Vitamin D3 1.25 MG (40443 UT) Oral Capsule Take 1 Capsule by [...] mRNA, LNP-s, No Pre serve, 2-Dose Series ([employer]) 05/15/2021,09/12/2020,08/22/2020 Hepatitis B, 20+ yrs 11/19/2021,05/20/20 21(Deferred: Contraindication),11/13/2020 12/13/2020 Pneumococcal Conjugate Vacc, 13 Valent (Prevnar) 04/20/2018 Pneumococcal Conjugate Vacci ne, 20-valent ([id number]) 01/27/2022 Seasonal Influenza Virus Vac cine, Unspecified [...] Upcoming Encounters Date Type Department Care Team ([facility] st Contact Info) Description 10/23/2023 8:40 AM EDT Office Visit [address] [phone] Mekhi Reyes, [address] [place] [phone] Health Maintenance Due Date Last Done Comments [...] COPD 09/29/2024 09/30/2023 Lipid Panel 07/07/2028 07/07/2023, 3 , 09/26/2021, [...] (HCC)- Primary Obstructive chronic bronchitis with exacerbation documented in this encounter Care Teams Seed Analysis Laboratory Assistant Relationship Specialty Start Date End Date Mekhi Reyes DO [address] [place] [phone] PCP - General Internal Medicine 12/10/22 documented as of this encounter
--- OUTSIDE RECORDS SUMMARY | 2023-10-22 23:15 | External Medical Summary | Summary of Care ---
Author Name Unknown Organization [facility] Address [address] [place] [address] Phone [phone] Care Team Providers Care Business Integration Manager Name Role Phone Mekhi Reyes DO Primary Care Provid er Reason for Visit * Reason Onset Date Comments Home Monitoring Orders Only 10/05/2023 Encounter Details Date Type Department Care Team ([facility] st Contact Info) Description 10/05/2023 Home Monitoring [address] [phone] Mekhi Reyes DO [address] [place] [phone] COPD exacerbation (HCC)* Allergies Active Allergy Reactions Criticality Noted Date Comments Adhesive Tape High 01/09/2023 Other Reaction(s): TEARS SKIN documented as of this encounter (statuses as of 10/05/2023) Medications Medication Sig Dispensed Refills Start Date End Date Status Vitamin D3 1.25 MG (53286 UT) Oral Capsule Take 1 Capsule by [...] mRNA, LNP-s, No Pre serve, 2-Dose Series ([employer]) 05/15/2021,09/12/2020,08/22/2020 Hepatitis B, 20+ yrs 11/19/2021,05/20/20 21(Deferred: Contraindication),11/13/2020 12/13/2020 Pneumococcal Conjugate Vacc, 13 Valent (Prevnar) 04/20/2018 Pneumococcal Conjugate Vacci ne, 20-valent ([id number]) 01/27/2022 Seasonal Influenza Virus Vac cine, Unspecified [...] Upcoming Encounters Date Type Department Care Team ([facility] st Contact Info) Description 10/23/2023 8:40 AM EDT Office Visit [address] [phone] Mekhi Reyes, [address] [place] [phone] Health Maintenance Due Date Last Done Comments [...] exacerbation documented in this encounter Care Teams Business Integration Manager Relationship Specialty Start Date End Date Mekhi Reyes DO [address] [place] [phone] PCP - General Internal Medicine 12/10/22 documented as of this encounter
[2023-10-23 06:31] LABS: Basophils # (auto) 0.01 K/uL (0.00-0.20); Basophils % (auto) 0.1 %; Immature Granulocytes % (auto) 1.1 %; Lymphocytes # (auto) 0.48 K/uL (1.20-3.40); Lymphocytes % (auto) 5.4 %; Mean Corpuscular Hemoglobin 28.7 pg (25.0-34.0); Mean Corpuscular Hgb Conc 31.6 g/dL (32.0-36.0); Mean Corpuscular Volume 90.9 fL (80.0-100.0); Mean Platelet Volume 9.9 fL (9.4-12.4); Monocytes # (auto) 0.38 K/uL (0.11-0.59); Monocytes % (auto) 4.3 %; Neutrophils # (auto) 7.97 K/uL (1.40-6.50); Neutrophils % (auto) 89.1 %; Platelet Count 259 K/uL (130-400); RDW Coefficient of Variation 12.6 % (11.5-14.5); Red Blood Count 4.18 M/uL (4.20-5.40); White Blood Count 8.94 K/ul (4.8-10.8)
[2023-10-23 06:53] LABS: Creatinine Clr Calc Pharmacy 57.2 ml/min; Est GFR (African American) 64.9 ml/min; Potassium 4.7 mmol/L (3.5-5.1)
[2023-10-23] MEDS: AZITHROMYCIN 250 MG TAB PO SCH (07:55)
--- NOTE | 2023-10-23 08:13 | Pulmonary Consultation ---
Date of Consultation October 22, 2023 Assessment & Plan (1) Acute exacerbation of chronic obstructive pulmonary disease: (2) Shortness of breath: (3) Eosinophilic asthma: (4) Chronic respiratory failure with hypoxia: Plan IMPRESSION: 63-year-old female with a significant pulmonary history of COPD with emphysema, eosinophilic asthma, obstructive sleep apnea, chronic respiratory failure with hypoxia, and prior history of smoking who presents in the setting of COPD with exacerbation and worsening dyspnea. RECOMMENDATIONS: 1. COPD with exacerbation -unfortunately, the patient is presenting again with symptoms of exacerbation of her baseline COPD. The patient was recently admitt ed at the end of last month with similar symptoms. Her main symptoms are dyspnea on exertion. She is back to her baseline 2 L nasal cannula at this point. She has scant wheezes noted throughout lung rae. No red flag symptoms of hemoptysis, pleuritic pain, or syncope. She does use Trelegy, but reports that she is having difficulty with taking a deep enough breath to engage the inhaler. We will change her medication to budesonide and Perforomist and I would recommend that she continues this in the outpatient setting. Additionally, the use of Incruse would be of benefit for now as well. She does have a follow-up appointment soon and consideration for trial of Breztri with a spacer may be more adventitious for this patient depending how she recovers from this current bout. She is still wheezing and bronchospastic on exam today. Continue with parenteral steroids with hopeful plan to taper down with transition to p.o. outpatient dose. As the patient continues to have a slight d egree of eosinophilia despite treatment with test prior, consideration for transitioning from test prior may be an option. Consideration for allergy referral for their expert opinion may be beneficial in this case. Again, this all certainly could be considered and managed in the outpatient setting. She continues to be on azithromycin Thursday which I would continue. 2. Shortness of breath -multifactorial, but largely driven by the patient's pulmonary status with COPD exacerbation. Additionally, consideration for the patient's persistent tachycardia should be evaluated further. Possible recommendation of discussing with cardiology as she continues to have heart rates into the 1 teens. This presented initially during last hospitalization as well. May benefit from addition of rate controlling medication at this time. I recognize that her nebulizer treatment certainly could contribute to this as well, however it appears as though her heart rate has been consistently elevated independent of administration of bronchodilators. 3. Eosinophilic asthma - Recently started on Tezspire. She reports that she has noted some benefit while on the test prior, however she does seem to have mild eosinophilia still. Recommendation for discussion in the outpatient setting regarding possible change of biologic therapy which may be prudent especially given her rebound symptoms. Again, can be reviewed and discussed in the outpatient setting Has noticed symptomatic improvement with decreased use of her rescue inhaler. Continue for now, however consideration for possible assessment of other biologic agent if the patient is continue to have breakthrough episodes of COPD exacerbation despite being on biologic therapy. This can be discussed in the outpatient setting if necessary. 4. Chronic respiratory failure with hypoxia - Patient is back to her baseline requirement of 2 L nasal cannula. 5. Obstructive sleep apnea - Continue with home CPAP settings at night. Thank you for allowing us to participate in the care of this pleasant patient. Pulmonary medicine will continue to follow. History of Present Illness Reason for Consultation: COPD Requesting Physician: Dr. Eric Attending Physician: Jay Agee MD History of Present Illness This note reflects care rendered on the date of 10/22/2023 Patient is a 63-year-old female with significant past medical history of COPD, asthma, obstructive sleep apnea, eosinophilic asthma, chronic respiratory failure with hypoxia on 2 L nasal cannula and prior history of smoking who had presented to the emergency department with symptoms of shortness of breath and wheezing. She was recently hospitalized at the end of August with similar symptoms. She had been doing well on a prednisone taper, but reports that over the last few days or so, her symptoms rebounded and her main symptom has been dyspnea on any exertion. She has had no chest pain, palpitations, dizziness, or lightheadedness. She has had wheezing and a cough. Her cough has not been productive of sputum. She has had no recent sick contacts. No hemoptysis. She has been taking test prior which she feels as though has been making a difference, but despite that, she has been still relatively symptomatic with her asthma and COPD. Patient has been on multiple courses of steroids and anti biotics in the last year. She has had 3 hospitalizations this calendar year already related to her breathing. Allergies Allergy/AdvReac Type Severity Reaction Status Date / Time adhesive tape AdvReac Severe TEARS SKIN Verified 10/21/23 20:24 Home Medications Medication Instructions Recorded Confirmed Type cholecalciferol (vitamin D3) 25 1,000 unit PO QAM 08/25/18 10/21/23 History mcg (1,000 unit) capsule (Vitamin D3) bupropion HCl 150 mg 24 hr tablet, 150 mg PO QAM 08/08/20 10/21/23 History extended release multivit-iron 18 mg-folic acid 400 1 tab PO QAM 08/08/20 10/21/23 History mcg-calcium 500 mg-minerals tablet (Women's One Daily) atorvastatin 40 mg tablet 40 mg PO HS 03/17/21 10/21/23 History trazodone 50 mg tablet 50 mg PO HS 03/17/21 10/21/23 History pantoprazole 40 mg tablet,delayed 40 mg PO QAM gastritis #90 tabs 06/24/21 10/21/23 Rx release (Protonix) celecoxib 100 mg capsule 100 mg PO DAILY 04/04/23 10/21/23 History duloxetine 60 mg capsule,delayed 60 mg PO QAM 04/04/23 10/21/23 History release gabapentin 800 mg tablet 800 mg PO TID 04/04/23 10/21/23 History tramadol 50 mg tablet 50 mg PO BID PRN Pain 04/04/23 10/21/23 History Portable Oxygen #1 ea 05/06/23 10/20/23 Rx albuterol sulfate 90 mcg/actuation 2 puff inhalation Q4H PRN 05/06/23 10/21/23 Rx aerosol inhaler Shortness Of Breath Or Wheezing #8.5 grams fluticasone fur. 200 mcg-umeclid 1 ea inhalation QAM #60 ea 05/06/23 10/21/23 Rx 62.5 mcg-vilant 25 mcg inhalat.powder (Trelegy Ellipta) tezepelumab-ekko 210 mg/1.91 mL 210 mg (1.91 mL) subcut Q4WK #1.91 05/14/23 10/21/23 Rx (110 mg/mL) subcutaneous pen mL injector (Tezspire) ipratropium 0.5 mg-albuterol 3 mg 3 ml inhalation QID PRN Shortness 06/17/23 10/21/23 History (2.5 mg base)/3 mL nebulization Of Breath Or Wheezing soln lisinopril 2.5 mg tablet 2.5 mg PO DAILY 06/17/23 10/21/23 History benzonatate 100 mg capsule 100 mg PO TID PRN cough #30 caps 06/20/23 10/21/23 Rx infliximab 100 mg intravenous See Rx Instructions IV Q8WK #8 ea 10/12/23 10/21/23 Rx solution (Remicade) azithromycin 250 mg tablet 250 mg PO 3XWK 10/21/23 10/21/23 History Patient History Medical History Eosinophilic asthma Acute viral bronchitis Elevated IgE level Acute asthma exacerbation Leiomyoma of uterus History of COVID-19 diagnosed 03/17/21 @ [facility]--had difficulty breathing d/t COPD and had to hospitalized with oxygen for 1 week, pt states no lingering symptoms Crohns disease GERD (gastroesophageal reflux disease) DM type 2 (diabetes mellitus, type 2) NIDDM- DIET CONTROLLED Depression Anxiety History of migraine LALO (obstructive sleep apnea) CPAP DVT prophylaxis Asthma COPD (chronic obstructive pulmonary disease) well controlled w/ inhaler daily/prn, has not needed neb in "a while" Chronic low back pain Hyperlipidemia Hypertension Surgical History History of appendectomy S/P colon resection (07/04/21) Laparoscopic Assisted Right Colon Resection - Gildardo Woods MD, FACS 07/04/2021 History of esophagogastroduodenoscopy (EGD) History of tooth extraction History of tubal ligation History of D&C History of appendectomy History of lumbar surgery x 5; hardware present History of colonoscopy last 02/21/21 @ [facility] History of carpal tunnel surgery BL Family History Brother Diabetes Father , in early 60s from AMI Diabetes Myocardial infarction Mother , in her 60s; "natural" causes No problems noted. Other No family history of adverse response to anesthesia Denies family history of Inflammatory bowel disease Social History Smoking Status: Former smoker Tobacco Type: Cigarettes Age Started Using Tobacco: 16; Age Quit Using Tobacco: 43; packs per day: 2.5; Second Hand Exposure: No; Do You Dip or Chew Tobacco: No; Tobacco Cessation Education Requested by Patient: No Hx Alcohol Use: No Hx Substance Use: No Preferred Language: Bangladeshi Communication Ability: Effective Visual Impairment: Limited Hearing Ability: Normal Senior Cost Estimator Required: No Beliefs That Will Affect Care: None marital status: Current Living Situation: Spouse and Family Current Living Situation Comment: lives with and grandson current occupational status: retired current occupation: worked at [employer] How many Children do You have: 1 Other Information That Helps Us Care for You: No other: lives in [place] Feels Safe at Home: Yes Safety Concerns: Feels Safe At This Time Diet: diabetic Seatbelt Use: always Do you think of yourself as: straight/heterosexual Gender Identity: Female Assistive Devices: CPAP, Nebulizer and Oxygen - Continuous Review of Systems Review of Systems: A complete 10 point review of systems was reviewed with the patient with pertinent positives and negatives as per history of present illness. All else were negative. Physical Exam Physical Exam: VITAL SIGNS - Vital signs and nursing notes were reviewed. GENERAL - 63-year-old female appearing her stated age who is in no acute distress. Communicates well with provider and answers questions appropriately. SKIN - Without rashes or lesions. NOSE - Midline and without cyanosis. MOUTH/OROPHARYNX - Without perioral cyanosis. Buccal mucosa pink and moist and without leukoplakia or thrush. NECK - Neck with FROM. LUNGS - Chest wall evaluation demonstrates normal chest wall A:P diameter. Auscultation reveals scant wheezes delayed air entry. No rales appreciated. CARDIAC - RRR with S1/S2. No murmur, rubs, or gallops appreciated. ABDOMEN - Abdominal inspection demonstrates an obese abdomen. BS normoactive all four quadrants. No tenderness, palpable masses, or ascites noted. EXTREMITIES - Nail clubbing not present. No peripheral cyanosis. No pretibial edema present. +3/5 radial palpated throughout. PSYCH - A&Ox3 and cooperates fully with examiner. Pt is very pleasant and interacts well with examiner. Results & Data Results & Data Vital Signs (Past 12 Hours) Vital Signs Temp Pulse Pulse Resp BP Pulse Ox O2 Del Method 10/23/23 07:06 110 H 20 95 Nasal Cannula 10/23/23 05:58 113 H 18 94 Nasal Cannula 10/23/23 03:30 37.3 C 121 H 18 128/85 95 Nasal Cannula 10/23/23 02:51 Nasal Cannula 10/22/23 22:29 36.8 C 117 H 16 132/81 91 Nasal Cannula 10/22/23 22:00 118 H O2 Flow Rate 10/23/23 07:06 2 10/23/23 05:58 10/23/23 03:30 2 10/23/23 02:51 2 10/22/23 22:29 2 10/22/23 22:00 PG Care Time/CCT Total # of Minutes Spent Total Time Spent with Patient: Total time spent is greater than 50% in coordination of care (as documented) at patient's floor/unit and/or counseling patient: Coding Level of Care Code 30855 IN/OBS CONSULT LVL 3,45M Diagnoses Acute exacerbation of chronic obstructive pulmonary disease J44.1 Shortness of breath R06.02 Eosinophilic asthma J82.83 Chronic respiratory failure with hypoxia J96.11
--- NOTE | 2023-10-23 12:27 | Hospitalist Progress Note ---
Date of Service October 23, 2023 Assessment & Plan (1) Acute exacerbation of chronic obstructive pulmonary disease: Plan: 63 year old female with PMH HTN, HLD, diet controlled DM II, Crohn's, asthma, COPD, chronic respiratory failure on 2L oxygen, depression, LALO, GERD, chronic pain presents with shortness of breath. Patient was in the hospital end of August with COPD Exacerbation. Patient since last one week again developing shortness of breath which is progressively getting worse. Coughing up a Yellow phlegm. States walking few steps making her short of breath. Denies chest pain. No fevers. Today around 3 AM she woke up with severe headaches. S till has a lot of headaches. No blurred vision. Has some runny nose. No sore throat. Appetite is okay. No nausea. No abdominal pain. Normal bowel and bladder movements. Currently requiring 4 L oxygen. Acute exacerbation of COPD Acute on chronic respiratory failure CTA chest no PE Continue home inhalers Will place on nebs [id number] and as needed and IV Solu-Medrol 40 mg 3 times daily On azithromycin 3 times a week which will be continued Intravenous ceftriaxone has been added for UTI Pulmonary consult for recurrent COPD exacerbation Clinically much better Will continue with current management Appreciate pulmonary input and recommendation She has been back to her baseline and requiring 2 L of oxygen at rest as at home She wants to go home and will be discharged home this afternoon Severe headaches Mostly from hypoxia CT head is okay No more headache during my examination Possible UTI Rocephin will f/u [id number]-[id number]-akihvfna bacilli and the sensitivities pending Last reported UTI was due to E. 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 8 weeks No acute disease Depression on bupropion and duloxetine GERD on PPI DVT prophylaxis Lovenox disposition med/telemetry Will be discharged home this afternoon Admission and Anticipated Discharge Date Admission Date: October 21, 2023 Subjective 10/22/2023 The patient was seen and examined in medical telemetry unit She has been feeling little better but he still has profound wheezing but shortness of breath has been improving Has been requiring 3 L to maintain saturation 10/23/2023 The patient was seen and examined in the medical telemetry unit She has been feeling much better with decrease in wheezing and shortness of breath She is back to her baseline and wants to go home today Has been ambulating in the room and in the hallway without any difficulties Was seen by pulmonary today Review of Systems Review of Systems: All systems reviewed and are unremarkable except as noted below Physical Exam Physical Exam: Lying in bed without any acute distress Constitutional: average body habitus; not ill appearing Eyes: PERRL, conjunctivae normal, anicteric sclerae ENMT: external ear and nose normal, oropharynx normal Neck: trachea midline, no thyromegaly Respiratory: no respiratory distress Auscultation: + diminished lung sounds and + wheezes (All over) Cardiovascular: Rate/Rhythm: regular rate, regular rhythm and + tachycardic Heart Sounds: normal S1 and normal S2; no murmur Extremities: no edema Gastrointestinal (Abdomen): Inspection/Auscultation: normal bowel sounds; abdomen not distended Percussion/Palpation: abdomen soft; abdomen nontender Musculoskeletal: No acute arthritis involving any of the joints Neurologic: normal touch/pain/proprioception and moves all extremities; no focal motor deficits Psychiatric: A+Ox3, euthymic affect Lymphatic: no cervical or axillary lymphadenopathy Results & Data Results & Data Vital Signs (Past 12 Hours) Vital Signs Temp Pulse Pulse Resp BP Pulse Ox O2 Del Method 10/23/23 09:40 115 H 10/23/23 09:40 Nasal Cannula 10/23/23 08:37 36.7 C 117 H 17 133/84 92 Nasal Cannula 10/23/23 07:06 110 H 20 95 Nasal Cannula 10/23/23 05:58 113 H 18 94 Nasal Cannula 10/23/23 03:30 37.3 C 121 H 18 128/85 95 Nasal Cannula 10/23/23 02:51 Nasal Cannula O2 Flow Rate 10/23/23 09:40 10/23/23 09:40 2 10/23/23 08:37 2 10/23/23 07:06 2 10/23/23 05:58 10/23/23 03:30 2 10/23/23 02:51 2 Laboratory Results Short CBC 10/23/23 Range/Units 05:45 WBC 8.94 (4.8-10.8) K/ul Hgb 12.0 (12.0-16.0) g/dl Hct 38.0 (37.0-47.0) % Plt Count 259 (130-400) K/uL BMP 10/23/23 05:45 Sodium 141 Potassium 4.7 Chloride 103 Carbon Dioxide 35 H BUN 16 Creatinine 1.07 Glucose 169 H Calcium 9.0 Medications Administered Current Inpatient Medications Acetaminophen (Acetaminophen 325 Mg Tab) 650 mg PO Q4H PRN PRN Reason: Pain or Fever Stop: 11/21/23 00:56 Last Admin: 10/22/23 15:42 Dose: 650 mg Albuterol (Albut/Ipratrop 3mg/0.5mg Neb 3 Ml Vial) 3 ml NEB QIDR PRN; Protocol PRN Reason: Shortness Of Breath Or Wheezin Stop: 11/21/23 00:56 Albuterol (Albuterol Hfa 8 Gm Inhaler) 2 puffs INH Q4H PRN PRN Reason: Shortness Of Breath Or Wheezin Stop: 11/21/23 00:56 Atorvastatin Calcium (Atorvastatin 40 Mg Tab) 40 mg PO HS [facility] Stop: 11/21/23 20:59 Last Admin: 10/22/23 21:35 Dose: 40 mg Azithromycin (Azithromycin 250 Mg Tab) 250 mg PO [id number] JESSENIA Stop: 11/22/23 08:59 Last Admin: 10/23/23 07:55 Dose: 250 mg Benzonatate (Benzonatate 100 Mg Capsule) 100 mg PO TID PRN PRN Reason: cough Stop: 11/21/23 00:56 Budesonide (Budesonide 0.5 Mg/2 Ml Vial (Pulmicort)) 0.5 mg NEB BIDR JESSENIA Stop: 11/21/23 10:59 Last Admin: 10/23/23 07:05 Dose: 0.5 mg Bupropion HCl (Bupropion Xl 150 Mg Tabcr) 150 mg PO QAM JESSENIA Stop: 11/21/23 08:59 Last Admin: 10/23/23 07:56 Dose: 150 mg Duloxetine HCl (Duloxetine Hcl 60 Mg Cap) 60 mg PO QAM JESSENIA Stop: 11/21/23 08:59 Last Admin: 10/23/23 07:55 Dose: 60 mg Enoxaparin Sodium (Enoxaparin Inj 40 Mg/0.4 Ml Syr) 40 mg SQ Q24H JESSENIA Stop: 11/21/23 08:59 Last Admin: 10/23/23 07:56 Dose: 40 mg Formoterol Fumarate (Formoterol 20 Mcg/2 Ml Vial) 20 mcg NEB BIDR [facility] Stop: 11/21/23 10:59 Last Admin: 10/23/23 07:05 Dose: 20 mcg Gabapentin (Gabapentin 800 Mg Tab) 800 mg PO TID [facility] Stop: 11/21/23 08:59 Last Admin: 10/23/23 07:54 Dose: 800 mg Methylprednisolone 40 mg/ (Syringe) 0.64 mls @ 1.5 mls/min IV Q8H [facility] Stop: 11/21/23 05:59 Last Admin: 10/23/23 05:56 Dose: 1.5 mls/min Ceftriaxone Sodium (Rocephin) 2,000 mg in 50 mls @ 100 mls/hr IV Q24H [facility] Stop: 11/01/23 05:59 Last Infusion: 10/23/23 07:25 Dose: Infused Lisinopril (Lisinopril 2.5 Mg Tab) 2.5 mg PO HS [facility] Stop: 11/21/23 20:59 Last Admin: 10/22/23 21:35 Dose: 2.5 mg Multivitamins (Multivitamin Tab) 1 tab PO QAM [facility] Stop: 11/21/23 08:59 Last Admin: 10/23/23 07:55 Dose: 1 tab Nitroglycerin (Nitroglycerin Sl 0.4 Mg/Tab Tab) 0.4 mg SL Q5M PRN PRN Reason: Chest Pain Stop: 11/21/23 00:56 Ondansetron HCl (Ondansetron Inj 2 Mg/Ml 2 Ml Vial) 4 mg IV Q6H PRN PRN Reason: Nausea And Vomiting Stop: 11/21/23 19:29 Last Admin: 10/22/23 20:53 Dose: 4 mg Pantoprazole Sodium (Pantoprazole 40 Mg Tab) 40 mg PO QAM [facility] Stop: 11/21/23 08:59 Last Admin: 10/23/23 07:56 Dose: 40 mg Polyethylene Glycol (Polyethylene (Miralax) 17 Gm Pack) 17 gm PO DAILY PRN PRN Reason: Constipation Stop: 11/21/23 00:56 Tramadol HCl (Tramadol Hcl 50 Mg Tablet) 50 mg PO BID PRN PRN Reason: Pain Stop: 11/21/23 00:56 Last Admin: 10/22/23 17:28 Dose: 50 mg Trazodone HCl (Trazodone Hcl 50 Mg Tab) 50 mg PO HS [facility] Stop: 11/21/23 20:59 Last Admin: 10/22/23 21:34 Dose: 50 mg Umeclidinium [place] (Umeclidinium [place] 62.5mcg/Blister 7 Puffs/Inhaler) 1 puffs INH DAILY JESSENIA Stop: 11/21/23 11:00 Last Admin: 10/23/23 07:54 Dose: 1 puffs Vitamin D (Cholecalciferol 25 Mcg (1000 Units) Tab) 25 mcg PO QAM JESSENIA Stop: 11/21/23 08:59 Last Admin: 10/23/23 07:55 Dose: 25 mcg
--- NOTE | 2023-10-23 12:39 | Pulmonology Progress Note ---
Date of Service October 23, 2023 Assessment & Plan (1) Acute exacerbation of chronic obstructive pulmonary disease: (2) Shortness of breath: (3) Eosinophilic asthma: (4) Chronic respiratory failure with hypoxia: Plan IMPRESSION: 63-year-old female with a significant pulmonary history of COPD with emphysema, eosinophilic asthma, obstructive sleep apnea, chronic respiratory failure with hypoxia, and prior history of smoking who presents in the setting of COPD with exacerbation and worsening dyspnea. RECOMMENDATIONS: 1. COPD with exacerbation -patient appears to have responded well. Recommend continued nebulized therapies as well as short course of prednisone and chronic azithromycin. She has follow-up scheduled with us next week 2. Shortness of breath -improved 3. Eosinophilic asthma - Recently started on Tezspire. She reports that she has noted some benefit while on the test prior, however she does seem to have mild eosinophilia still. Recommendation for discussion in the outpatient setting regarding possible change of biologic therapy which may be prudent especially given her rebound symptoms. Again, can be reviewed and discussed in the outpatient setting Patient appears to be stable to discharge. She has follow-up scheduled with the PA on Thursday next week. Pulmonary will sign off. Feel free to contact us with questions or concerns Admission and Anticipated Discharge Date Admission Date: October 21, 2023 Subjective Patient seen and examined. EMR reviewed. The patient states her breathing is better. She feels she is back to baseline. She is eating well. She is at her baseline oxygen requirement. She is able to ambulate around the halls without difficulty. No chest pain or palpitations. No cough sputum production or wheezing Review of Systems 2 Review of Systems: All systems reviewed & are unremarkable except as noted in Subjective Physical Exam 2 Physical Exam: VITAL SIGNS - Vital signs and nursing notes were reviewed. GENERAL - 63-year-old female appearing her stated age who is in no acute distress. Communicates well with provider and answers questions appropriately. SKIN - Without rashes or lesions. NOSE - Midline and without cyanosis. MOUTH/OROPHARYNX - Without perioral cyanosis. Buccal mucosa pink and moist and without leukoplakia or thrush. NECK - Neck with FROM. LUNGS - Chest wall evaluation demonstrates normal chest wall A:P diameter. Auscultation reveals no wheezing. Breath sounds are diminished bilaterally. No rales appreciated. CARDIAC - RRR with S1/S2. No murmur, rubs, or gallops appreciated. ABDOMEN - Abdominal inspection demonstrates an obese abdomen. BS normoactive all four quadrants. No tenderness, palpable masses, or ascites noted. EXTREMITIES - Nail clubbing not present. No peripheral cyanosis. No pretibial edema present. +3/5 radial palpated throughout. PSYCH - A&Ox3 and cooperates fully with examiner. Pt is very pleasant and interacts well with examiner. Results & Data Results & Data Vital Signs (Past 12 Hours) Vital Signs Temp Pulse Pulse Resp BP Pulse Ox O2 Del Method 10/23/23 09:40 115 H 10/23/23 09:40 Nasal Cannula 10/23/23 08:37 36.7 C 117 H 17 133/84 92 Nasal Cannula 10/23/23 07:06 110 H 20 95 Nasal Cannula 10/23/23 05:58 113 H 18 94 Nasal Cannula 10/23/23 03:30 37.3 C 121 H 18 128/85 95 Nasal Cannula 10/23/23 02:51 Nasal Cannula O2 Flow Rate 10/23/23 09:40 10/23/23 09:40 2 10/23/23 08:37 2 10/23/23 07:06 2 10/23/23 05:58 10/23/23 03:30 2 10/23/23 02:51 2 Laboratory Results 10/23/23 05:45 10/23/23 05:45 Diagnostic Findings No new imaging PG Care Time/CCT Total # of Minutes Spent Total Time Spent with Patient: Total time spent is greater than 50% in coordination of care (as documented) at patient's floor/unit and/or counseling patient: Coding Level of Care Code 77084 SUB INP/OBS CARE 2/35MIN Diagnoses Acute exacerbation of chronic obstructive pulmonary disease J44.1 Shortness of breath R06.02 Eosinophilic asthma J82.83 Chronic respiratory failure with hypoxia J96.11
--- NOTE | 2023-10-24 08:27 | Discharge Summary ---
Date of Service October 24, 2023 Admission HPI Per Admitting Provider 63 year old female with PMH HTN, HLD, diet controlled DM II, Crohn's, asthma, COPD, chronic respiratory failure on 2L oxygen, depression, LALO, GERD, chronic pain presents with shortness of breath. Patient was in the hospital end of August with COPD Exacerbation. Patient since last one week again developing shortness of breath which is progressively getting worse. Coughing up a Yellow phlegm. States walking few steps making her short of breath. Denies chest pain. No fevers. Today around 3 AM she woke up with severe headaches. Still has a lot of headaches. No blurred vision. Has some runny nose. No sore throat. Appetite is okay. No nausea. No abdominal pain. Normal bowel and bladder movements. Currently requiring 4 L oxygen. Past medical history. As mentioned above past surgical history. Lumbar surgery x 4. Injection of lumbosacral spine. Tubal ligation. Appendectomy. Tonsillectomy adenoidectomy. Inguinal hernia repair. Social history. . Smoking 2003. Smoked 2 packs a day for 38 years. No alcohol use. No drug use. Family history. Mother has asthma. Diabetes. Hypertension. Father had heart disorder. Maternal aunt had breast cancer. Maternal aunt had ovarian cancer. Admission Exam Per Admitting Provider Physical Exam: General- Not in distress. Head- atraumatic Eyes- PERRL. ENT- oropharynx clear Neck- supple, no JVD. Lungs- clear to auscultation b/l rhonchi heard. Heart- regular rhythm; no murmur, no gallop. Abdomen- normal bowel sounds, soft, nontender, no distension. Extremities- mild pretibial edema present , no erythema seen. Neuro- alert, oriented x 3; PERRL, no facial palsy; no dysarthria; moves extremities. Principal Diagnosis COPD exacerbation, acute on chronic respiratory failure Discharge Exam Lying in bed without any acute distress Constitutional average body habitus; not ill appearing Eyes PERRL, conjunctivae normal, anicteric sclerae ENMT external ear and nose normal, oropharynx normal Neck trachea midline, no thyromegaly Respiratory no respiratory distress Auscultation: + diminished lung sounds and + wheezes (All over) Cardiovascular Rate/Rhythm: regular rate, regular rhythm and + tachycardic Heart Sounds: normal S1 and normal S2; no murmur Extremities: no edema Gastrointestinal (Abdomen) Inspection/Auscultation: normal bowel sounds; abdomen not distended Percussion/Palpation: abdomen soft; abdomen nontender Neurologic normal touch/pain/proprioception and moves all extremities; no focal motor deficits Psychiatric A+Ox3, euthymic affect Lymphatic no cervical or axillary lymphadenopathy Discharge Data Allergies Allergy/AdvReac Type Severity Reaction Status Date / Time adhesive tape AdvReac Severe TEARS SKIN Verified 10/21/23 20:24 Consultations 10/21/23 20:20 ED Decision to Admit Stat 10/22/23 08:00 Consult Pulmonology Routine Ordered Studies 10/21/23 16:28 CT angio chest PE protocol Stat Head CT [CT head/brain wo con] Stat Hospital Course (1) Acute exacerbation of chronic obstructive pulmonary disease: 63 year old female with PMH HTN, HLD, diet controlled DM II, Crohn's, asthma, COPD, chronic respiratory failure on 2L oxygen, depression, LALO, GERD, chronic pain presents with shortness of breath. Patient was in the hospital end of August with COPD Exacerbation. Patient since last one week again developing shortness of breath which is progressively getting worse. Coughing up a Yellow phlegm. States walking few steps making her short of breath. Denies chest pain. No fevers. Today around 3 AM she woke up with severe headaches. Still has a lot of headaches. No blurred vision. Has some runny nose. No sore throat. Appetite is okay. No nausea. No abdominal pain. Normal bowel and bladder movements. Currently requiring 4 L oxygen. Acute exacerbation of COPD Acute on chronic respiratory failure CTA chest no PE Continue home inhalers Will place on nebs [id number] and as needed and IV Solu-Medrol 40 mg 3 times daily On azithromycin 3 times a week which will be continued Intravenous ceftriaxone has been added for UTI Pulmonary consult for recurrent COPD exacerbation Clinically much better Will continue with current management Appreciate pulmonary input and recommendation She has been back to her baseline and requiring 2 L of oxygen at rest as at home She wants to go home and will be discharged home this afternoon Severe headaches Mostly from hypoxia CT head is okay No more headache during my examination Possible UTI Rocephin will f/u [id number] bacilli and the sensitivities pending Last reported UTI was due to E. 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 8 weeks No acute disease Depression on bupropion and duloxetine GERD on PPI DVT prophylaxis Lovenox disposition med/telemetry Will be discharged home this afternoon Total Time Total Time Spent Total Time Spent (In Minutes): 35 minutes Discharge Plan Discharge Items Patient Disposition: Home - Self-Care Reason For Visit: COPD EX Discharge Diagnosis: COPD exacerbation, acute on chronic respiratory failure Condition on Discharge: Fair Activity: Resume your previous activity Non-emergency contact: Primary Care Provider Call non-emergency contact if: you have any medication questions and your symptoms worsen Follow-up/Referrals: Mekhi Reyes MD [Primary Care Provider] - (Please make an appointment with your PCP within 7 days) Diet: Heart Healthy Addtl Attending Provider Instructions: Please take precautions to avoid falls Continue your medications as advised Keep your appointment with the insurance marketing specialist as scheduled next week Please have regular follow-up with your primary care provider Continue your oxygen and advised Pending Studies at Discharge: No Stand-Alone Forms: [email or web address], Smoking Cessation Medications and DC Order Prescriptions: New budesonide 0.5 mg/2 mL Suspension For Nebulization 0.5 mg NEB BIDR Qty: 60 0RF formoterol fumarate [Perforomist] 20 mcg/2 mL Solution For Nebulization 20 mcg NEB BIDR Qty: 60 0RF prednisone 10 mg tablet 10 mg PO DIRECTED Qty: 30 0RF Rx Instructions: 4 tabs daily for 3 days, 3 tabs daily for 3 days, 2 tabs daily for 3 days and then 1 tab daily for 3 days Continued pantoprazole [Protonix] 40 mg tablet,delayed release (DR/EC) 40 mg PO QAM Qty: 90 3RF infliximab [Remicade] 100 mg recon soln See Rx Instructions IV Q8WK Qty: 8 8RF Rx Instructions: DUE OCTOBER 02, 2023. 10 mg/kg intravenously every 8 weeks; albuterol sulfate 90 mcg/actuation HFA aerosol inhaler 2 puff inhalation Q4H PRN (Reason: Shortness Of Breath Or Wheezing) Qty: 8.5 5RF Trelegy Ellipta 200-62.5-25 mcg blister with device 1 ea INHALATION QAM Qty: 60 4RF (DME) Portable Oxygen Misc See Rx Instructions .MEDSUPPLY Qty: 1 0RF Rx Instructions: Oxygen 2 liters continuous via nasal cannula on exertion with portable concentrator. ANA MARIA 99 Tezspire 210 mg/1.91 mL (110 mg/mL) pen injector 210 mg subcut Q4WK Qty: 1.91 11RF Rx Instructions: HAD 10/12/23. Inject 210 mg Subcutaneously every 4 weeks Approved via [employer] from 05/08/23-11/07/23 cholecalciferol (vitamin D3) [Vitamin D3] 1,000 unit Capsule 1,000 unit PO QAM bupropion HCl 150 mg tablet extended release 24 hr 150 mg PO QAM Women's One Daily 18 mg iron-400 mcg-500 mg Ca Tablet 1 tab PO QAM tramadol 50 mg tablet 50 mg PO BID PRN (Reason: Pain) gabapentin 800 mg tablet 800 mg PO TID celecoxib 100 mg capsule 100 mg PO DAILY duloxetine 60 mg capsule,delayed release(DR/EC) 60 mg PO QAM trazodone 50 mg tablet 50 mg PO HS atorvastatin 40 mg tablet 40 mg PO HS lisinopril 2.5 mg tablet 2.5 mg PO DAILY ipratropium-albuterol 0.5 mg-3 mg(2.5 mg base)/3 mL solution for nebulization 3 ml inhalation QID PRN (Reason: Shortness Of Breath Or Wheezing) benzonatate 100 mg Capsule 100 mg PO TID PRN (Reason: cough) Qty: 30 0RF azithromycin 250 mg tablet 250 mg PO 3XWK Rx Instructions: Thursday, Thursday and Thursday Discharge Orders: Discharge Order (Routine); Ordered 10/23/23 Ordered By: Jay Agee Admission Data Admit Date/Time: 10/21/23 21:58 Attending Provider: Jay Agee Admit Provider: Rob Eric Primary Care Provider: Mekhi Reyes Other Providers: Rob Eric; Buck Green Other Interventions: Discharge Summary Assessment (RN) Last Done: 10/23/23 14:28
== END 2023-10-23 16:56 | disposition home or self-care (01) | DRG 190 ==
LOC: ED 15:47 → EDINP 21:58 → 2N 10-22 00:56

== ENCOUNTER 2023-11-19 14:12 | Observation (INO) ==
--- NOTE | 2023-11-19 14:54 | Emergency Department Note ---
Impression & Plan Acute respiratory acidosis, Enterovirus infection, Elevated blood sugar, Anemia ED Provider Note NAME: JAIMIE JACKSON AGE: 63 SEX: F : 1960 ARRIVES VIA: Walk-In INFORMANT: Patient ED PROVIDER(S): Dilip Glaser DO CHIEF COMPLAINT: shortness of breath HPI: Patient is a 63-year-old female who presents to the ER with a past medical history of COPD, who presents to the ER for shortness of breath chronically on 2 L nasal cannula. She notes symptoms started last night with worsening cough. She admits to some intermittent chest pain which is very short-lived, midsternal and last for seconds to 2. Mainly occurs at rest. Denies any belly pain, nausea, vomiting, or diarrhea. No dysuria, urgency, or frequency. She notes that she cannot get up and walk as she significantly short of breath. She is using her rescue pack which includes steroids and inhalers but still has no improvement. Cough has worsened today but no new sputum. ADDITIONAL HISTORY OBTAINED: Per HPI Chronic Medical/Social Conditions Affecting Care: Per HPI PAST MEDICAL HISTORY:See Below PAST SURGICAL HISTORY:See Below FAMILY HISTORY:See Below SOCIAL HISTORY:See Below HOME MEDICATIONS:See Below ALLERGIES:See Below VITALS:See Below PHYSICAL EXAMINATION: GENERAL: Sitting up in bed, alert, dyspneic with conversation, mild distress EYE EXAM: normal conjunctiva. PERRL and EOM's grossly intact. OROPHARYNX: mucous membranes are moist NECK: supple, no nuchal rigidity, no adenopathy, non-tender LUNGS: Clear to auscultation. Normal chest wall mechanics HEART: no murmurs, S1 normal and S2 normal ABDOMEN: abdomen soft, non-tender, normo-active bowel sounds, no masses, no rebound or guarding. BACK: Back is symmetrical on inspection and there is no deformity, no midline tenderness, no CVA tenderness. SKIN: no rashes and no bruising UPPER EXTREMITIES: upper extremities are grossly normal. LOWER EXTREMITIES: No pitting edema. NEURO EXAM: Normal sensorium, cranial nerves II-XII grossly intact, normal speech, no gross weakness of arms, no gross weakness of legs. MEDICAL DECISION MAKING: Patient is a 63-year-old female who presents ER short of breath for the above- stated complaint. IV was established blood work was obtained. Labs show mild leukopenia 4.4. Mild anemia 11. VBG with a pH of 7.3 and a CO2 slightly elevated at 56. BMP with a glucose elevated at 161. LFTs bilirubin was unremarkable. Troponin negative. Lipase normal. Viral panel was positive for rhinovirus. Patient was given nebs as well as steroids. Her respiratory rate did improve. Chest x-ray without any focal infiltrate. She was updated bedside. Discussed case with the hospitalist for further evaluation management treatment. CTA of the chest showed no PEs. Consults/Care Managements Discussions: Per [facility] Triage Nursing notes reviewed. Limited review of prior medical records performed Vital Signs: reviewed and remarkable for tachypneic on chronic 2 L Differential diagnosis: Differential diagnoses includes but is not limited to pneumonia, bronchitis, COPD/Asthma exacerbation, pneumothorax, pulmonary embolism, congestive heart failure, acute coronary syndrome ER treatment provided: See below Diagnostics interpreted by me include EKG and cardiac monitoring as listed below: -Cardiac Monitoring: An order was placed for continuous cardiac monitoring. The monitor shows a rate of 110 with sinus rhythm. -ECG: Sinus tachycardia rate of 119 Normal axis PVC present QTc 458 -Laboratory studies:Interpreted by me as stated above in MDM and shown below. Imaging studies: Xrays: As interpreted by me: Portable AP upright 1 view of the chest shows no focal infiltrate CTs show: CT angio of the chest was negative Procedures:none Critical Care: None Past Med/Surg History Problem List (Updated 11/19/23 @ 20:43 by Dilip Glaser DO) Anemia (Acute) Elevated blood sugar (Acute) Enterovirus infection (Acute) Acute exacerbation of chronic obstructive pulmonary disease (Acute) Acute exacerbation of chronic obstructive pulmonary disease (Acute) Shortness of breath (Acute) Eosinophilic asthma Acute viral bronchitis Elevated troponin Hypomagnesemia Hypokalemia Influenza A (Acute) Traumatic open wound of left lower leg with delayed healing (Acute) Chronic respiratory failure with hypoxia H/O of biological therapy treatment Elevated IgE level Acute asthma exacerbation Cat scratch of face Acute respiratory acidosis (Acute) Sinus tachycardia Acute respiratory failure with hypoxia and hypercarbia GERD (gastroesophageal reflux disease) (Chronic) Recurrent syncope (Acute) Former smoker (Acute) COPD with emphysema Obstructive sleep apnea syndrome Crohns disease Tubular adenoma of colon Colonic stricture COPD exacerbation Depression DM type 2 (diabetes mellitus, type 2) NIDDM- DIET CONTROLLED LALO (obstructive sleep apnea) (Acute) CPAP Asthma (Chronic) Hypertension (Chronic) Hyperlipidemia (Chronic) Chronic low back pain (Chronic) Medical History Leiomyoma of uterus History of COVID-19 diagnosed 03/17/21 @ [facility]--had difficulty breathing d/t COPD and had to hospitalized with oxygen for 1 week, pt states no lingering symptoms Crohns disease GERD (gastroesophageal reflux disease) Anxiety History of migraine DVT prophylaxis COPD (chronic obstructive pulmonary disease) well controlled w/ inhaler daily/prn, has not needed neb in "a while" Surgical History History of appendectomy S/P colon resection (07/04/21) Laparoscopic Assisted Right Colon Resection - Gildardo Woods MD, FACS 07/04/2021 History of esophagogastroduodenoscopy (EGD) History of tooth extraction History of tubal ligation History of D&C History of appendectomy History of lumbar surgery x 5; hardware present History of colonoscopy last 02/21/21 @ [facility] History of carpal tunnel surgery BL Family History Brother Diabetes Father , in early 60s from AMI Diabetes Myocardial infarction Mother , in her 60s; "natural" causes No problems noted. 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: No Beliefs That Will Affect Care: None marital status: Current Living Situation: Spouse and Family Current Living Situation Comment: lives with and grandson current occupational status: retired current occupation: worked at [employer] How many Children do You have: 1 other: lives in [place] Feels Safe at Home: Yes Diet: diabetic Seatbelt Use: always Do you think of yourself as: straight/heterosexual Gender Identity: Female Assistive Devices: CPAP, Nebulizer and Oxygen - Continuous Allergies Allergies Allergy/AdvReac Type Severity Reaction Status Date / Time adhesive tape AdvReac Severe TEARS SKIN Verified 10/21/23 20:24 Home Meds Home Medications Medication Instructions Recorded Confirmed cholecalciferol (vitamin D3) 25 1,000 unit PO QAM 08/25/18 11/19/23 mcg (1,000 unit) capsule (Vitamin D3) bupropion HCl 150 mg 24 hr tablet, 150 mg PO DAILYBL 08/08/20 11/19/23 extended release multivit-iron 18 mg-folic acid 400 1 tab PO QAM 08/08/20 11/19/23 mcg-calcium 500 mg-minerals tablet (Women's One Daily) atorvastatin 40 mg tablet 40 mg PO HS 03/17/21 11/19/23 trazodone 50 mg tablet 50 mg PO HS 03/17/21 11/19/23 celecoxib 100 mg capsule 100 mg PO DAILY 04/04/23 11/19/23 duloxetine 60 mg capsule,delayed 60 mg PO QAM 04/04/23 11/19/23 release gabapentin 800 mg tablet 800 mg PO TID 04/04/23 11/19/23 tramadol 50 mg tablet 50 mg PO BID PRN Pain 04/04/23 11/19/23 ipratropium 0.5 mg-albuterol 3 mg 3 ml inhalation QID PRN Shortness 06/17/23 11/19/23 (2.5 mg base)/3 mL nebulization Of Breath Or Wheezing soln lisinopril 2.5 mg tablet 2.5 mg PO DAILY 06/17/23 11/19/23 azithromycin 250 mg tablet 250 mg PO 3XWK 10/21/23 11/19/23 Previous Rx's Medication Instructions Recorded pantoprazole 40 mg tablet,delayed 40 mg PO QAM gastritis #90 tabs 06/24/21 release (Protonix) Portable Oxygen #1 ea 05/06/23 albuterol sulfate 90 mcg/actuation 2 puff inhalation Q4H PRN 05/06/23 aerosol inhaler Shortness Of Breath Or Wheezing #8.5 grams tezepelumab-ekko 210 mg/1.91 mL 210 mg (1.91 mL) subcut Q4WK #1.91 05/14/23 (110 mg/mL) subcutaneous pen mL injector (Tezspire) benzonatate 100 mg capsule 100 mg PO TID PRN cough #30 caps 06/20/23 infliximab 100 mg intravenous See Rx Instructions IV Q8WK #8 ea 10/12/23 solution (Remicade) budesonide 0.5 mg/2 mL suspension 0.5 mg (2 mL) NEB BIDR #60 doses 10/23/23 for nebulization formoterol fumarate 20 mcg/2 mL 20 mcg (2 mL) NEB BIDR #60 doses 10/23/23 solution for nebulization (Perforomist) prednisone 10 mg tablet 10 mg PO DIRECTED #30 tabs 10/23/23 budesonide 160 mcg-glycopyr 9 2 inh inhalation BID #10.7 grams 10/27/23 mcg-formot 4.8 mcg/actuation HFA inhaler (POS on [employer]) Results & Data (ED) Vital Signs Vital Signs - 24 hr 11/19/23 14:31 11/19/23 15:18 11/19/23 15:22 Temperature 36.8 C Temperature Source Skin Pulse Rate 115 H 105 H Pulse Rate [Right Finger] 101 H Respiratory Rate 28 H 22 Respiratory Effort / Characteristics Spontaneous Accessory Muscle Use Short of Breath SOB on Exertion Tripoding Non-Labored Spontaneous Respiratory Depth Normal Respiratory Pattern Tachypnea Blood Pressure 126/85 Blood Pressure Mean 98 Pulse Oximetry 93 95 Oxygen Delivery Method Nasal Cannula Nasal Cannula Oxygen Flow Rate 2 2 Sepsis Recent Fever Within 48 Hours No Sepsis New/Unexplained Change in Mental Status N/A Sepsis Action Taken by Nursing No Action Required Laboratory Data 11/19/23 14:59 11/19/23 14:59 Lab Results 11/19/23 11/19/23 Range/Units 14:59 15:53 WBC 4.14 L (4.8-10.8) K/ul RBC 3.96 L (4.20-5.40) M/uL Hgb 11.4 L (12.0-16.0) g/dl Hct 36.4 L (37.0-47.0) % MCV 91.9 (80.0-100.0) fL MCH 28.8 (25.0-34.0) pg MCHC 31.3 L (32.0-36.0) g/dL RDW Std Deviation 43.3 (36.4-46.3) fL RDW Coeff of Dougie 13.0 (11.5-14.5) % Plt Count 241 (130-400) K/uL MPV 9.8 (9.4-12.4) fL Immature Gran % (Auto) 0.5 % Neut % (Auto) 90.3 % Lymph % (Auto) 8.0 % Amador % (Auto) 1.0 % Eos % (Auto) 0.0 % Baso % (Auto) 0.2 % Neut # (Auto) 3.74 (1.40-6.50) K/uL Lymph # (Auto) 0.33 L (1.20-3.40) K/uL Amador # (Auto) 0.04 L (0.11-0.59) K/uL Eos # (Auto) 0.00 (0.00-0.50) K/uL Baso # (Auto) 0.01 (0.00-0.20) K/uL Immature Gran # (Auto) 0.02 (0.01-0.20) K/uL Hypersegmented Neuts 1+ Ovalocytes 1+ VBG pH 7.31 L (7.36-7.41) VBG pCO2 56 H (38-50) mmHg VBG pO2 93 mmHg VBG HCO3 28 mmol/L VBG O2 Saturation 98.0 % VBG Base Excess 0.8 mEq/L Sodium 137 (136-145) mmol/L Potassium 4.4 (3.5-5.1) mmol/L Chloride 103 (98-107) mmol/L Carbon Dioxide 28 (21-32) mmol/L Anion Gap 6 (3-11) BUN 12 (6-23) mg/dl Creatinine 0.99 (0.6-1.2) mg/dl Est Cr Clr Drug Dosing 61.9 ml/min Est GFR ( Amer) 71.3 ml/min Est GFR (Non-Af Amer) 61.5 ml/min BUN/Creatinine Ratio 12.1 (10-20) Glucose 161 H (70-99(Fasting)) mg/dl Calcium 8.8 (8.6-10.3) mg/dl Total Bilirubin 0.3 (0.2-1.0) mg/dl AST 12 L (13-39) U/L ALT 11 (7-52) U/L Alkaline Phosphatase 81 (34-104) U/L Troponin I High Sens 11.7 (0-14) pg/ml Total Protein 6.7 (6.0-8.3) gm/dl Albumin 3.8 (3.4-5.0) gm/dl Globulin 2.9 (2.5-4.0) gm/dl Albumin/Globulin Ratio 1.3 (0.9-2) Lipase 6 L (11-82) U/L Administered Medications Albuterol (Albut/Ipratrop 3mg/0.5mg Neb 3 Ml Vial) 3 ml NEB Q4R JESSENIA; Protocol Stop: 12/19/23 19:58 Last Admin: 11/19/23 20:13 Dose: 3 ml Documented By: TMP Formoterol Fumarate (Formoterol 20 Mcg/2 Ml Vial) 20 mcg NEB BIDR JESSENIA Stop: 12/19/23 19:58 Last Admin: 11/19/23 20:15 Dose: Not Given Documented By: TMP Discontinued Medications Albuterol (Albut/Ipratrop 3mg/0.5mg Neb 3 Ml Vial) 12 ml NEB ONE ONE; Protocol Stop: 11/19/23 14:49 Last Admin: 11/19/23 15:09 Dose: 12 ml Documented By: CLAY Ioversol (Optiray 320 125ml) 119 ml IV ONCE ONE Stop: 11/19/23 17:18 Last Admin: 11/19/23 17:17 Dose: 119 ml Documented By: CLAUDE Methylprednisolone (Methylprednisolone 125 Mg/2 Ml Vial) 60 mg IV NOW STA Stop: 11/19/23 14:49 Last Admin: 11/19/23 15:09 Dose: 60 mg Documented By: CLAY Imaging Data Radiologist's Impression: Chest X-Ray 11/19/23 14:43 XR chest 1V portable CLINICAL HISTORY: Chest pain, nonspecific TECHNIQUE: Single frontal radiograph of the chest was obtained. Comparison: Comparison is made to CTA chest 10/21/2023 and chest radiograph 10/21/2023 FINDINGS: No lines and tubes are seen. Cardiomegaly is noted. The lungs are clear. No evidence of pleural effusion or pneumothorax. Blunting of the left costophrenic angle is compatible with extrapleural fat. IMPRESSION: No acute chest disease. Cardiomegaly is noted. ACT 112: Negative or not required by law. Electronically signed by: Emanuel Ambrose M.D. 11/19/2023 3:25 PM Discharge Plan Visit Data Chief Complaint: Shortness of Breath/Dyspnea Stated Complaint: SOB ED Provider: Dilip Glaser Discharge Problem: Acute respiratory acidosis, Enterovirus infection, Elevated blood sugar, Anemia Patient Disposition: Admitted As Inpatient Discharge Instructions Interventions: ED Discharge Assessment Last Done: 11/19/23 19:38 Discharge Problem: Anemia Qualifiers: Anemia type: unspecified type Qualified Code(s): D64.9 - Anemia, unspecified
[2023-11-19] MEDS: ALBUT/IPRATROP 3MG/0.5MG NEB 3 ML VIAL NEB ONE (15:09)
[2023-11-19] MEDS: methylPREDNISolone 125 MG/2 ML VIAL IV STA (15:09)
--- NOTE | 2023-11-19 15:27 | XRay Report ---
XR chest 1V portable CLINICAL HISTORY: Chest pain, nonspecific TECHNIQUE: Single frontal radiograph of the chest was obtained. Comparison: Comparison is made to CTA chest 10/21/2023 and chest radiograph 10/21/2023 FINDINGS: No lines and tubes are seen. Cardiomegaly is noted. The lungs are clear. No evidence of pleural effus ion or pneumothorax. Blunting of the left costophrenic angle is compatible with extrapleural fat. IMPRESSION: No acute chest disease. Cardiomegaly is noted. ACT 112: Negative or not required by law. Electronically signed by: Emanuel Ambrose M.D. 11/19/2023 3:25 PM
[2023-11-19 15:32] LABS: Hematocrit (blood only) 36.4 % (37.0-47.0); Hemoglobin 11.4 g/dl (12.0-16.0); Mean Corpuscular Hemoglobin 28.8 pg (25.0-34.0); Mean Corpuscular Hgb Conc 31.3 g/dL (32.0-36.0); Mean Corpuscular Volume 91.9 fL (80.0-100.0); Mean Platelet Volume 9.8 fL (9.4-12.4); Platelet Count 241 K/uL (130-400); RDW Standard Deviation 43.3 fL (36.4-46.3); Red Blood Count 3.96 M/uL (4.20-5.40); White Blood Count 4.14 K/ul (4.8-10.8)
[2023-11-19 15:49] LABS: Albumin Globulin Ratio 1.3 (0.9-2); Albumin Level 3.8 gm/dl (3.4-5.0); BUN Creatinine Ratio 12.1 (10-20); Bilirubin,Total 0.3 mg/dl (0.2-1.0); Calcium 8.8 mg/dl (8.6-10.3); Creatinine Clr Calc Pharmacy 61.9 ml/min; Est GFR (African American) 71.3 ml/min; Est GFR (Non-African American) 61.5 ml/min; Globulin 2.9 gm/dl (2.5-4.0); Potassium 4.4 mmol/L (3.5-5.1); Total Protein 6.7 gm/dl (6.0-8.3)
[2023-11-19 15:56] LABS: Troponin I High Sensitivity 11.7 pg/ml (0-14)
[2023-11-19 15:59] LABS: Basophils # (auto) 0.01 K/uL (0.00-0.20); Basophils % (auto) 0.2 %; Hypersegmented Neutrophils 1+; Immature Granulocytes # (auto) 0.02 K/uL (0.01-0.20); Immature Granulocytes % (auto) 0.5 %; Lymphocytes # (auto) 0.33 K/uL (1.20-3.40); Monocytes # (auto) 0.04 K/uL (0.11-0.59); Neutrophils # (auto) 3.74 K/uL (1.40-6.50); Neutrophils % (auto) 90.3 %; Ovalocytes 1+
[2023-11-19 16:03] LABS: Base Excess VBG 0.8 mEq/L; HCO3 VBG 28 mmol/L; PCO2 VBG 56 mmHg (38-50); PO2 VBG 93 mmHg; pH VBG 7.31 (7.36-7.41)
--- NOTE | 2023-11-19 16:29 | History & Physical Report ---
Date of Service November 19, 2023 Assessment & Plan (1) Acute exacerbation of chronic obstructive pulmonary disease: (2) Eosinophilic asthma: (3) Former smoker: (4) COPD with emphysema: (5) LALO (obstructive sleep apnea): (6) Hypertension: (7) Hyperlipidemia: (8) DM type 2 (diabetes mellitus, type 2): Plan: Acute exacerbation of COPD Eosinophilic Asthma LALO - CXR is negative, will check CTPE with tachycardia/MORAN. - will treat with Perforomist, budesonide and Incruse inh, solumedrol 40 mg IV Q8H - At home was only using Breztri inhaler, not using nebs or rescue inhaler. Sx have worsened over the past week, and last night couldn't breath when laying flat - Cont Tezspire (once monthly - end of month) for eosinophilic asthma - Started duonebs around the clock, and prn Q2H SOB - azithromycin 250 mg MWF for antiinflammatory effects - pulmonary consult for recurrent COPD exacerbation - this is her 4th hospitalization since the beginning of the year. - Consider palliative consultation after pulm - Cont CPAP HS for LALO Diet-controlled diabetes - accuchecks ACHS - Last HbA1c 6.4 in 07/27/23 - recheck with am labs Abd pain Crohn's disease -Chronic infliximab q. 8 weeks - Notes episode of bloody stools once in the past week. C/o abd pain, nausea, tender on palpation per attending on exam. - Consult GI and will hold off on imaging unless worsening sx or their team recommends such. Hypertension HLD - Cont home meds: lisinopril - Statin therapy Chronic back pain - Cont gabapentin and tramadol prn Depression - Cont on bupropion and duloxetine GERD - on PPI Elbow Staph infection - Will switch to doxy, was on kelfex previously, has taken about 8 days of such, was scheduled a 10 day course. DVT ppx: teds, scds, Lines: 1 PIV FEN/GI: Diabetic diet CODE: Full code - discussed with pt at bedside Dispo: From home, likely to remain in the hospital x 1-2 days A total of 75 minutes were spent with greater than 50% of that time face to face with the patient, personally reviewing all current laboratories, imaging studies, past medication reconciliation, outpatient chart review, and discussion with specialists to collaborate care for the patient with attending. Please see attending documentation for corrections and/or additions. History of Present Illness Chief Complaint: Shortness of breath Primary Care Provider: Mekhi Reyes MD This is a 63 yo F with PMH with significant pulmonary history of COPD with emphysema, eosinophilic asthma, obstructive sleep apnea, chronic respiratory failure with hypoxia, and prior history of smoking as well as HTN, HLD, diet controlled DM II, Crohn's s/p bowel resection in 2021. Patient has had multiple hospitalizations this year in June, August, September and now again in October. She presents today with worsening shortness of breath and dyspnea with conversation. Patient was following as outpatient with pulmonology here at [facility], was recently prescribed a Breztri inhaler for trial with a spacer and had planned follow-up within 6 to 8 weeks from 10/27/2023. She is 3 weeks out from this visit, now returning to the ER with worsening symptoms yet again. Her VBG is reviewed showing pH of 7.31, CO2 retention 56. She is currently on her 2L NC, at baseline. She uses 3 L with exertion. Pt states she is coughing, yellow phlegm, no hemoptysis, but worsened overnight. She has not been using albuterol inhaler while trying Breztri, which she started right after the last admission. Family at bedside report she's scheduled to see a new line mechanic end of November, and is supposed to have further work up on her heart. Hasn't had an ultrasound that she is aware of recently. She feels her heart racing, had some chest heav iness. She has recently had a Zio patch but is unaware of any abnormal results. Pt is on Remicade for Crohns disease and scheduled to have it next week. Pt reports occasional blood in stool, but last time was about 1 week ago. Appetite is good. Pt admits to having chills, and having chronic nausea on nearly daily basis which she uses zofran for. Pt is also being treated for staph infection on her right elbow and has been taking Keflex TID since 11/09 x 10 day course. Allergies Allergy/AdvReac Type Severity Reaction Status Date / Time adhesive tape AdvReac Severe TEARS SKIN Verified 10/21/23 20:24 Home Medications Medication Instructions Recorded Confirmed Type cholecalciferol (vitamin D3) 25 1,000 unit PO QAM 08/25/18 11/19/23 History mcg (1,000 unit) capsule (Vitamin D3) bupropion HCl 150 mg 24 hr tablet, 150 mg PO DAILYBL 08/08/20 11/19/23 History extended release multivit-iron 18 mg-folic acid 400 1 tab PO QAM 08/08/20 11/19/23 History mcg-calcium 500 mg-minerals tablet (Women's One Daily) atorvastatin 40 mg tablet 40 mg PO HS 03/17/21 11/19/23 History trazodone 50 mg tablet 50 mg PO HS 03/17/21 11/19/23 History pantoprazole 40 mg tablet,delayed 40 mg PO QAM gastritis #90 tabs 06/24/21 11/19/23 Rx release (Protonix) celecoxib 100 mg capsule 100 mg PO DAILY 04/04/23 11/19/23 History duloxetine 60 mg capsule,delayed 60 mg PO QAM 04/04/23 11/19/23 History release gabapentin 800 mg tablet 800 mg PO TID 04/04/23 11/19/23 History tramadol 50 mg tablet 50 mg PO BID PRN Pain 04/04/23 11/19/23 History Portable Oxygen #1 ea 05/06/23 11/19/23 Rx albuterol sulfate 90 mcg/actuation 2 puff inhalation Q4H PRN 05/06/23 11/19/23 Rx aerosol inhaler Shortness Of Breath Or Wheezing #8.5 grams tezepelumab-ekko 210 mg/1.91 mL 210 mg (1.91 mL) subcut Q4WK #1.91 05/14/23 Rx (110 mg/mL) subcutaneous pen mL injector (Tezspire) ipratropium 0.5 mg-albuterol 3 mg 3 ml inhalation QID PRN Shortness 06/17/23 11/19/23 History (2.5 mg base)/3 mL nebulization Of Breath Or Wheezing soln lisinopril 2.5 mg tablet 2.5 mg PO DAILY 06/17/23 11/19/23 History benzonatate 100 mg capsule 100 mg PO TID PRN cough #30 caps 06/20/23 11/19/23 Rx infliximab 100 mg intravenous See Rx Instructions IV Q8WK #8 ea 10/12/23 11/19/23 Rx solution (Remicade) azithromycin 250 mg tablet 250 mg PO 3XWK 10/21/23 11/19/23 History budesonide 0.5 mg/2 mL suspension 0.5 mg (2 mL) NEB BIDR #60 doses 10/23/23 11/19/23 Rx for nebulization formoterol fumarate 20 mcg/2 mL 20 mcg (2 mL) NEB BIDR #60 doses 10/23/23 11/19/23 Rx solution for nebulization (Perforomist) prednisone 10 mg tablet 10 mg PO DIRECTED #30 tabs 10/23/23 11/19/23 Rx budesonide 160 mcg-glycopyr 9 2 inh inhalation BID #10.7 grams 10/27/23 11/19/23 Rx mcg-formot 4.8 mcg/actuation HFA inhaler (Breztri Loopback) Past Med/Surg History Problem List Acute exacerbation of chronic obstructive pulmonary disease (Acute) Acute exacerbation of chronic obstructive pulmonary disease (Acute) Shortness of breath (Acute) Eosinophilic asthma Acute viral bronchitis Elevated troponin Hypomagnesemia Hypokalemia Influenza A (Acute) Traumatic open wound of left lower leg with delayed healing (Acute) Chronic respiratory failure with hypoxia H/O of biological therapy treatment Elevated IgE level Acute asthma exacerbation Cat scratch of face Acute respiratory acidosis Sinus tachycardia Acute respiratory failure with hypoxia and hypercarbia GERD (gastroesophageal reflux disease) (Chronic) Recurrent syncope (Acute) Former smoker (Acute) COPD with emphysema Obstructive sleep apnea syndrome Crohns disease Tubular adenoma of colon Colonic stricture COPD exacerbation Depression DM type 2 (diabetes mellitus, type 2) NIDDM- DIET CONTROLLED LALO (obstructive sleep apnea) (Acute) CPAP Asthma (Chronic) Hypertension (Chronic) Hyperlipidemia (Chronic) Chronic low back pain (Chronic) Medical History Leiomyoma of uterus History of COVID-19 diagnosed 03/17/21 @ [facility]--had difficulty breathing d/t COPD and had to hospitalized with oxygen for 1 week, pt states no lingering symptoms Crohns disease GERD (gastroesophageal reflux disease) Anxiety History of migraine DVT prophylaxis COPD (chronic obstructive pulmonary disease) well controlled w/ inhaler daily/prn, has not needed neb in "a while" Surgical History History of appendectomy S/P colon resection (07/04/21) Laparoscopic Assisted Right Colon Resection - Gildardo Woods MD, FACS 07/04/2021 History of esophagogastroduodenoscopy (EGD) History of tooth extraction History of tubal ligation History of D&C History of appendectomy History of lumbar surgery x 5; hardware present History of colonoscopy last 02/21/21 @ [facility] History of carpal tunnel surgery BL Family History Brother Diabetes Father , in early 60s from AMI Diabetes Myocardial infarction Mother , in her 60s; "natural" causes No problems noted. Other No family history of adverse response to anesthesia Denies family history of Inflammatory bowel disease Social History Smoking Status: Former smoker Tobacco Type: Cigarettes Age Started Using Tobacco: 16; Age Quit Using Tobacco: 43; packs per day: 2.5; Second Hand Exposure: No; Do You Dip or Chew Tobacco: No; Hx Alcohol Use: No Hx Substance Use: No Preferred Language: [place] Communication Ability: Effective Visual Impairment: Limited Hearing Ability: Normal Resident Assistant Cna Required: No Beliefs That Will Affect Care: None marital status: Current Living Situation: Spouse and Family Current Living Situation Comment: lives with and grandson current occupational status: retired current occupation: worked at [employer] How many Children do You have: 1 other: lives in [place] Feels Safe at Home: Yes Diet: diabetic Seatbelt Use: always Do you think of yourself as: straight/heterosexual Gender Identity: Female Assistive Devices: CPAP, Nebulizer and Oxygen - Continuous Review of Systems Review of Systems: Constitutional: No fever, sweats, + chills Eyes: No diplopia, no worsening or blurred vision ENT: normal hearing, no trouble swallowing Respiratory: + cough, sputum, +dyspnea at rest and on exertion, wearing 2-3 L at home Cardiovascular: As per HPI. Currently no chest pain, tightness or palpitations Abdomen: + pain, + nausea, novomiting, no diarrhea or constipation, hx of bloody stool x 1 a week ago Musculoskeletal: No joint pain, calf pain, swelling Neurologic: No weakness, numbness/tingling, or balance problems Psychiatric: No anxiety or depression Skin: No rash or itch Physical Exam Physical Exam: Please see attending addendum Results & Data Results & Data Vital Signs (Past 12 Hours) Vital Signs Temp Pulse Pulse Resp BP Pulse Ox O2 Del Method 11/19/23 15:22 101 H 22 95 Nasal Cannula 11/19/23 15:18 105 H 11/19/23 14:31 36.8 C 115 H 28 H 126/85 93 Nasal Cannula O2 Flow Rate 11/19/23 15:22 2 11/19/23 15:18 11/19/23 14:31 2 Laboratory Results 11/19/23 11/19/23 15:53 14:59 WBC 4.14 L RBC 3.96 L Hgb 11.4 L Hct 36.4 L MCV 91.9 MCH 28.8 MCHC 31.3 L RDW Std Deviation 43.3 RDW Coeff of Dougie 13.0 Plt Count 241 MPV 9.8 Immature Gran % (Auto) 0.5 Neut % (Auto) 90.3 Lymph % (Auto) 8.0 [place] % (Auto) 1.0 Eos % (Auto) 0.0 Baso % (Auto) 0.2 Neut # (Auto) 3.74 Lymph # (Auto) 0.33 L [place] # (Auto) 0.04 L Eos # (Auto) 0.00 Baso # (Auto) 0.01 Immature Gran # (Auto) 0.02 Hypersegmented Neuts 1+ Ovalocytes 1+ VBG pH 7.31 L VBG pCO2 56 H VBG pO2 93 VBG HCO3 28 VBG O2 Saturation 98.0 VBG Base Excess 0.8 Sodium 137 Potassium 4.4 Chloride 103 Carbon Dioxide 28 Anion Gap 6 BUN 12 Creatinine 0.99 Est Cr Clr Drug Dosing 61.9 Est GFR ( Amer) 71.3 Est GFR (Non-Af Amer) 61.5 BUN/Creatinine Ratio 12.1 Glucose 161 H Calcium 8.8 Total Bilirubin 0.3 AST 12 L ALT 11 Alkaline Phosphatase 81 Troponin I High Sens 11.7 Total Protein 6.7 Albumin 3.8 Globulin 2.9 Albumin/Globulin Ratio 1.3 Lipase 6 L Diagnostic Findings Chest X-Ray 11/19/23 14:43 XR chest 1V portable CLINICAL HISTORY: Chest pain, nonspecific TECHNIQUE: Single frontal radiograph of the chest was obtained. Comparison: Comparison is made to CTA chest 10/21/2023 and chest radiograph 10/21/2023 FINDINGS: No lines and tubes are seen. Cardiomegaly is noted. The lungs are clear. No evidence of pleural effusion or pneumothorax. Blunting of the left costophrenic angle is compatible with extrapleural fat. IMPRESSION: No acute chest disease. Cardiomegaly is noted. ACT 112: Negative or not required by law. Electronically signed by: Emanuel Ambrose M.D. 11/19/2023 3:25 PM Supervising Physician Co-Signing Physician Notes Patient is a 63-year-old female with history of COPD, LALO, chronic respiratory failure with hypoxia, Crohn's disease and other medical problems presents with history of worsening shortness of breath associated with cough/expectoration. Also states having some chest heaviness, palpitations. Reports abdominal pain which she attributes to Crohn's disease and intermittently had some blood in stool. Reports chronic nausea and uses antiemetics frequently. Please review HPI for complete details of presentation. I personally reviewed blood work and imaging studies. CTA showed no PE, findings suggestive of mild emphysema, diffuse peribronchial thickening suggestive of bronchitis, reactive airway disease and faint upper lobe tree-in-bud bud opacities. BioFire positive for rhinovirus. Physical Exam: Vitals signs as noted above General Appearance:Moderately built and nourished, no apparent distress Head: normocephalic, Atraumatic Eyes: normal inspection, EOMI Neck: supple, Trachea midline Respiratory/Chest: Normal breath sounds, CTA, No accessory muscle use Cardiovascular: S1, S2, No murmur Abdomen/GI:Soft, Non tender, Bowel sounds present Extremities/Musculoskeletal:normal inspection, no edema Neurologic/Psych:AAOX3, grossly no focal neurological deficits Skin: normal color, warm Acute COPD exacerbation Chronic respiratory failure with hypoxia H/O LALO on CPAP Rhinovirus infection Agree with nebs, glucocorticoids. Continue home inhalers. Pulmonology consulted Continue supplemental oxygen--titrate to keep sats 88 to 92% Added doxycycline Continue CPAP at bedtime Atypical chest pain Palpitations Sinus tachycardia, PACs on EKG Check resting echo Trend troponins Will repeat EKG in the morning Monitor repeat electrolytes as needed I personally interviewed and examined at bedside. Patient's care is coordinated with Farida Moran PA-C. I have reviewed the advanced practitioner's documentation, and I agree with plan of care. Please refer to the documentation above for details of patient's presentation and for discussion of other issues. I spent a total of40 minutes coordinating, documenting, and providing care for this patient excluding time spent in the performance of separately billed services.
[2023-11-19] MEDS: OPTIRAY 320 125ml IV ONE (17:17)
[2023-11-19 17:50] LABS: Adenovirus PCR Not Detected (NotDetected); Bordetella parapertussis PCR Not Detected (NotDetected); Bordetella pertussis PCR Not Detected (NotDetected); Chlamydia pneumoniae PCR Not Detected (NotDetected); Coronavirus 229E PCR Not Detected (NotDetected); Coronavirus CoV-2 (COVID19)PCR Not Detected (NotDetected); Coronavirus HKU1 PCR Not Detected (NotDetected); Coronavirus NL63 PCR Not Detected (NotDetected); Coronavirus OC43PCR Not Detected (NotDetected); Human Metapneumovirus PCR Not Detected (NotDetected); Influenza A PCR Not Detected (NotDetected); Influenza B PCR Not Detected (NotDetected); Mycoplasma pneumoniae PCR Not Detected (NotDetected); Parainfluenza Virus 1 PCR Not Detected (NotDetected); Parainfluenza Virus 2 PCR Not Detected (NotDetected); Parainfluenza Virus 3 PCR Not Detected (NotDetected); Parainfluenza Virus 4 PCR Not Detected (NotDetected); Respiratory Syncytial VirusPCR Not Detected (NotDetected); Rhinovirus/Enterovirus PCR DETECTED (NotDetected)
--- NOTE | 2023-11-19 18:49 | CT Scan Report ---
CT ANGIOGRAM OF THE CHEST CLINICAL HISTORY: Atypical chest pain. COMPARISON STUDY: Chest CT dated 10/21/2023. Chest x-ray dated 11/19/2023. TECHNIQUE: Following the IV administration of 119 cc of Optiray 320, CT angiogram of the chest was pe rformed from the upper abdomen to the thoracic inlet using the pulmonary embolus protocol. Images are reviewed in the axial, sagittal, and coronal planes. 3-D MIPS images are created and assessed. IV co ntrast was administered without complication. A dose lowering technique was utilized adhering to the principles of ALARA. CT DOSE: 627.34 mGy.cm FINDINGS: Thyroid: Enlarged and heterogeneous, typical for goiter. Calcifications are noted in both lobes. Thoracic aorta: There is atherosclerotic calcification of the thoracic aorta, which is normal in delaney rosas and demonstrates bovine variant arch anatomy. No dissection is seen. Pulmonary vasculature: The pulmonary trunk is normal in caliber. There are no filling defects identif ied within the main, lobar, or segmental pulmonary branches to indicate pulmonary embolus. Heart: The heart is top normal in size and without pericardial effusion. There are coronary artery ca lcifications. Lungs and pleural spaces: There is mild emphysematous change. There is no lobar consolidation or pleu ral effusion. The trachea and central airways are clear faint tree-in-bud opacities within the upper lobes are likely inflammatory. Diffuse peribronchial thickening is observed. Mediastinum: There is no mediastinal lymphadenopathy. Therese: Clear. Axillae: There is no axillary lymphadenopathy. Upper abdomen: Partially visualized upper abdominal viscera is within normal limits. Skeletal structures: The skeletal structures are osteopenic. Degenerative change is noted in the shou lders and spine. No lytic or blastic bony lesions are seen. There are chronic/healed right-sided rib fractures. IMPRESSION: 1. There is no evidence of pulmonary embolus in the main, lobar, or segmental pulmonary arteries. 2. Mild emphysema. 3. There is no airspace consolidation or pleural effusion. 4. Diffuse peribronchial thickening suggests bronchitis/reactive air disease and faint upper lobe nirmala e in bud opacities are likely inflammatory. Correlate clinically. 5. Additional findings as above. ACT 112: Negative or not required by law. Electronically signed by: Sean Kirkpatrick M.D. 11/19/2023 6:47 PM
[2023-11-19] MEDS ORDERED: GLUCOSE 40% GEL 15 GM TUBE PO PRN ×2 (19:59→20:28)
[2023-11-19] MEDS ORDERED: CARBOHYDRATES FOR HYPOGLYCEMIA PO PRN ×2 (19:59→20:28)
[2023-11-19] MEDS ORDERED: GLUCAGON FOR INJ 1 MG VIAL SQ PRN ×2 (19:59→20:28)
[2023-11-19] MEDS ORDERED: ACETAMINOPHEN 325 MG TAB PO PRN (19:59)
[2023-11-19] MEDS ORDERED: ONDANSETRON INJ 2 MG/ML 2 ML VIAL IV PRN (19:59)
[2023-11-19] MEDS ORDERED: DEXTROSE 50% 50 ML SYRINGE IV PRN ×2 (19:59→20:28)
[2023-11-19] MEDS ORDERED: GLUCOSE 10 TAB/TUBE PO PRN ×2 (19:59→20:28)
[2023-11-19] MEDS: ALBUT/IPRATROP 3MG/0.5MG NEB 3 ML VIAL NEB SCH (20:13)
[2023-11-19] MEDS: FORMOTEROL 20 MCG/2 ML VIAL NEB SCH (20:15)
[2023-11-19] MEDS ORDERED: FORMOTEROL 20 MCG/2 ML VIAL NEB SCH (21:00)
[2023-11-19] MEDS: ATORVASTATIN 40 MG TAB PO SCH (21:16)
[2023-11-19] MEDS: FLUTICASONE/VILANTEROL 200/25MCG 14 PUFFS/INHALER INH SCH (21:16)
[2023-11-19] MEDS: DOXYCYCLINE HYCLATE 100 MG CAP PO SCH (21:16)
[2023-11-19] MEDS: traZODone HCL 50 MG TAB PO SCH (21:16)
[2023-11-19] MEDS: GABAPENTIN 800 MG TAB PO SCH (21:16)
[2023-11-19] MEDS: HEPARIN SOD 5,000 UNIT/0.5 ML VIAL SQ SCH (21:16)
[2023-11-19] MEDS: INSULIN ASPART PER UNIT CHARGE SC SCH (21:17)
--- OUTSIDE RECORDS SUMMARY | 2023-11-20 04:00 | External Medical Summary | Summary of Care ---
Author Name Unknown Organization [facility] Address [address] [place] [address] Phone [phone] Care Team Providers Care Chemical Sprayer Name Role Phone Bessiebeverley Mekhi Sr Primary Care Provid er Reason for Visit * Reason Comments Acute Patient is here with complaints of a bite on her R elbow that happened a few days ago- hot and painful and has drainage. Patient would also like to discuss zio monitor results. Encounter Details Date Type Department Care Team (Latest Contact Info) Description 11/10/2023 2:40 PM EDT Office Visit [address] [phone] Meliza Batista PA-C [address] [place] [phone] Wound of right upper extremity, initial encounter*; COPD, group D, by GOLD 2017 classification ([facility]); Tachycardia; Type 2 diabetes mellitus with hemoglobin A1c goal of less than 7.0% ([facility]) Allergies Active Allergy Reactions Criticality Noted Date Comments Adhesive Tape High 01/09/2023 Other Reaction(s): TEARS SKIN documented as of this encounter (statuses as of 11/10/2023) Medications Medication Sig Dispensed Refills Start Date End Date Status Vitamin D3 1.25 MG (88129 UT) Oral Capsule Take 1 Capsule by mouth in the morning. Active Womens Multi Oral Capsule Take 1 Tablet by mouth daily. Active D-Care Glucometer w/Device Kit Use as directed . Use to test BS; e11.9, may substitute for insurance coverage 1 Kit 2 Active OneTouch Delica Lancets 30G Use to test blood sugar twice daily; e11.9 200 Each 3 2 Active OneTouch Verio In Vitro Strip (Glucose Blood) Use to test blood sugar twice daily; e11.9 200 Strip 3 2 Active inFLIXimab 100 MG Intravenous Solution Reconstituted Administer 800 mg intravenously every 8 weeks. 1 Each 2 Active Atorvastatin Calcium 40 MG Oral [...] or chew. 90 Capsule 3 3 Active traZODone HCl 50 MG Oral Tablet (Desyrel)Indication s:Sleep disorder Take 1 Tablet by mouth every night at bedtime. 90 Tablet 3 3 Active Albuterol Sulfate HFA 108 (90 Base) MCG/ACT Inhalation Aerosol SolutionIndications :COPD exacerbation ([facility]) Inhale 2 Puffs by mouth every 6 hours as needed for Shortness of Breath or Wheezing. 8.5 g 5 3 Active Spacer/Aero-Holding Chambers Device Use with inhaler. 1 Each 3 Active CPAP every night at bedtime. Active Trelegy Ellipta 200-62.5-25 MCG/ACT Aerosol Powder Breath Activated (Fluticasone-Umecli dinium-Vilanterol)I ndications:COPD, group D, by GOLD 2017 classification ([facility]) Inhale 1 Puff by mouth daily. 60 Blister Dosing Unit 5 3 Active Acetaminophen 325 MG Oral Capsule Take 2 Capsules by mouth. 2 Active traMADol HCl 50 MG Oral [...] or chew. 50 Capsule 1 4 Active Ipratropium-Albuter ol 0.5-2.5 (3) MG/3ML Inhalation Solution (Duoneb)Indications :Severe persistent asthma with (acute) exacerbation,Chroni c hypoxemic respiratory failure (HCC) Inhale 3 mL via nebulizer every 4 hours as needed for Shortness of Breath or Wheezing. 100 mL 2 4 Active Azithromycin 250 MG Oral Tablet (Zithromax)Indicati ons:COPD, group D, by GOLD 2017 classification ([facility]) Take 1 Tablet by mouth once a day on Thursday, Thursday, and Thursday only. 36 Tablet 3 4 Active Celecoxib 100 MG Oral Capsule (CeleBREX)Indicatio ns:DDD (degenerative disc disease), lumbar Take 1 capsule by mouth in the morning for pain. 90 Capsule 4 Active Pantoprazole Sodium 40 MG Oral Tablet Delayed Release (Protonix) TAKE 1 TABLET BY MOUTH IN THE MORNING 90 Tablet 1 4 Active Ondansetron HCl 4 MG Oral Tablet (Zofran) Take 1 Tablet by mouth every 6 hours as needed for Nausea. 30 Tablet 3 4 Active Cephalexin 500 MG Oral CapsuleIndications: Wound of right upper extremity, initial encounter Take 1 Capsule by mouth in the morning and 1 Capsule at noon and 1 Capsule before bedtime. Do all this for 10 days. 30 Capsule 4 11/20/19 24 Active levoFLOXacin 250 MG Oral Tablet (Levaquin)Indicatio ns:COPD, group D, by GOLD 2017 classification ([facility]) Take 2 Tablets by mouth daily for 1 day, THEN 1 Tablet daily for 6 days. Rescue kit. 8 Tablet 4 11/10/19 24 Discontinu ed(Medicat ion List Clean Up) predniSONE 20 MG Oral Tablet (Deltasone)Indicati ons:COPD, group D, by GOLD 2017 classification ([facility]) Take 3 tabs for 3 days, 2 tabs for 3 days, 1 tab for 3 days, 1/2 tab for 3 days. Rescue kit. 20 Tablet 4 11/10/19 24 Discontinu ed(Medicat ion List Clean Up) Hospital, Clinic, or Other Facility Administered Medication Ordered Dose Route Frequency Start Date End Date Status Albuterol Sulfate (Proventil) (2.5 MG/3ML) 0.083% inhalation solution 2.5 mgIndications:Screening for respiratory condition 2.5 mg NEBULIZER ONCE PRN 04/01/2022 Active Albuterol Sulfate (Proventil) (2.5 MG/3ML) 0.083% inhalation solution 2.5 mgIndications:COPD, group D, by GOLD 2017 classification ([facility]),Interstitial pulmonary disease ([facility]),Shortness of breath 2.5 mg NEBULIZER ONCE PRN 2023 04/02/2024 Active documented as of this encounter (statuses as of 11/10/2023) Active Problems Problem Noted Date Diagnosed Date [...] as of this encounter (statuses as of 11/10/2023) Resolved Problems Problem Noted Date Diagnosed Date [...] as of this encounter (statuses as of 11/10/2023) Immunizations Name Administration Dates Next Due COVID-19 mRNA, LNP-s, No Pre serve, 2-Dose Series ([employer]) 05/15/2021,09/12/2020,08/22/2020 Hepatitis B, 20+ yrs 11/19/2021,05/20/20 21(Deferred: Contraindication),11/13/2020 12/13/2020 Pneumococcal Conjugate Vacc, 13 Valent (Prevnar) 04/20/2018 Pneumococcal Conjugate Vacci ne, 20-valent ([id number]) 01/27/2022 Seasonal Influenza Virus Vac cine, Unspecified [...] Sign Reading Time Taken Comments Blood Pressure 104/60 11/10/2023 2:42 PM EDT Pulse 117 11/10/2023 2:42 PM EDT Temperature 37.5 C (99.5 F) 11/10/2023 2:42 PM ED T Respiratory Rate 18 11/10/2023 2:42 PM EDT Oxygen Saturation 94% 11/10/2023 2:42 PM EDT 2L O2 Inhaled Oxygen Concentration - - Weight 77.8 kg (171 lb 8 oz) 11/10/2023 2:42 PM EDT Height - - Body Mass Index 27.68 04/14/2023 9:27 AM EST documented in this encounter Progress Notes * Meliza Batista PA-C - 11/10/2023 2:54 PM EDT Subjective: Krystin Jaffe is a 63 year old female. Chief Complaint Patient presents with Acute Patient is here with complaints of a bite on her R elbow that happened a few days ago- hot and painful and has drainage. Patient would also like to discuss zio monitor results. HPI: Patient presents for acute visit for redness and drainage from right elbow. She reprots it started as a braxton about a week ago. Reports noticing increasing erythema today. She reports noticing drainage over the past week- yellow drainage. Denies any fevers. Denies nausea or vomiting. Patient reports she was recently admitted to [facility] for COPD exacerbation. She was discharged October 23. She missed her hospital discharge follow up appointment. She reports she was started on a new nebulizer. Patient also reports inhalers are different. Reports she believes she is now on Breo. She completedprednisone taper and antibiotic. Denies any worsening in breathing since discharge. She is chronically on 2L oxygen and increases it to 3 with activity. Patient reports she has followed with pulmonology 3x since discharge. She reports her breathing is currently at baseline Reviewed zio patch results. Patient has upcoming appointment with cardiology. Patient reports blood glucose has been well controlled. PMH: Patient Active Problem List Diagnosis Type 2 diabetes mellitus with hemoglobin A1c goal of less than 7.0% (HCC) Bilateral lower extremity edema S/P lumbar fusion Chronic bilateral low back pain without sciatica Hip pain, left Hypertension goal BP (blood pressure) < 140/90 Mood disorder (HCC) Hyperlipidemia with target LDL less than 100 Sleep disorder Crohn's disease of colon with complication ([facility]) S/P partial resection of colon Interstitial pulmonary disease ([facility]) Overweight (BMI 25.0-29.9) DDD (degenerative disc disease), lumbar Chronic pain syndrome Achilles tendon pain Crohn's disease (HCC) Generalized anxiety disorder COPD, group D, by GOLD 2017 classification ([facility]) Encounter for screening for malignant neoplasm of colon Enthesopathy of knee Hemarthrosis of ankle and foot Leiomyoma of uterus Leukocytosis Malaise and fatigue Other screening mammogram Ovarian cyst Pneumonia due to COVID-19 virus Sciatica Recurrent syncope UTI (urinary tract infection) Tubular adenoma of colon Tachycardia LALO and COPD overlap syndrome ([facility]) Chronic hypoxemic respiratory failure (HCC) Severe persistent asthma with (acute) exacerbation Current Outpatient Medications Medication Sig Dispense Refill Vitamin D3 1.25 MG (85407 UT) Oral Capsule Take 1 Capsule by [...] sugar twice daily; e11.9 200 Strip 3 Atorvastatin Calcium 40 MG Oral Tablet (Lipitor) [...] cut, crush or chew. 90 Capsule 3 traZODone HCl 50 MG Oral Tablet (Desyrel) Take 1 Tablet by mouth every night at bedtime. 90 Tablet 3 Albuterol Sulfate HFA 108 (90 Base) MCG/ACT Inhalation Aerosol Solution Inhale 2 Puffs by mouth every 6 hours as needed for Shortness of Breath or Wheezing. 8.5 g 5 Spacer/Aero-Holding Chambers Device Use with inhaler. 1 Each 0 CPAP every night at bedtime. Trelegy Ellipta 200-62.5-25 MCG/ACT Aerosol Powder Breath Activated (Lowejkjnhtc-Hhqlyosfvzgg-Uiruenoxaq) Inhale 1 Puff by mouth daily. 60 Blister Dosing Unit 5 Acetaminophen 325 MG Oral Capsule Take 2 Capsules by mouth. traMADol HCl 50 MG Oral Tablet (Ultram) Take 1 Tablet by mouth 2 times a day as needed for Pain, Severe. 60 Tablet 3 Tezepelumab-ekko 210 MG/1.91ML Subcutaneous Solution Auto-injector Inject 1.91 mL under the skin every 4 weeks. Lisinopril 2.5 MG Oral Tablet (Prinivil) Take 1 Tablet by mouth in the morning. 30 Tablet 11 Benzonatate 100 MG Oral Capsule (Tessalon Perles) Take 1 Capsule by mouth 3 times a day as needed for Cough. Do not cut, crush, or chew. 50 Capsule 1 Ipratropium-Albuterol 0.5-2.5 (3) MG/3ML Inhalation Solution (Duoneb) Inhale 3 mL via nebulizer every 4 hours as needed for Shortness of Breath or Wheezing. 100 mL 2 Azithromycin 250 MG Oral Tablet (Zithromax) Take 1 Tablet by mouth once a day on Thursday, Thursday,and Thursday only. 36 Tablet 3 Celecoxib 100 MG Oral Capsule (CeleBREX) Take 1 capsule by mouth in the morning for pain. 90 Capsule 0 Pantoprazole Sodium 40 MG Oral Tablet Delayed Release (Protonix) TAKE 1 TABLET BY MOUTH IN THE MORNING 90 Tablet 1 Ondansetron HCl 4 MG Oral Tablet (Zofran) Take 1 Tablet by mouth every 6 hours as needed for Nausea. 30 Tablet 3 inFLIXimab 100 MG Intravenous Solution Reconstituted Administer 800 mg intravenously every 8 weeks.1 Each Silver sulfADIAZINE 1 % External Cream (Silvadene) Apply topically to affected area daily. Apply toburn. (Patient not taking: Reported on 07/27/2023) 400 g 1 predniSONE 20 MG Oral Tablet (Deltasone) Take 3 tabs for 3 days, 2 tabs for 3 days, 1 tab for 3 days, 1/2 tab for 3 days. Rescue kit. (Patient not taking: Reported on 11/10/2023) 20 Tablet 0 Current Facility-Administered Medications Medication Dose Route Frequency Provider Last Rate Last Admin Albuterol Sulfate (Proventil) (2.5 MG/3ML) 0.083% inhalation solution 2.5 mg 2.5 mg Nebulizer Once PRN Chel Ozuna PA-C Albuterol Sulfate (Proventil) (2.5 MG/3ML) 0.083% inhalation solution 2.5 mg 2.5 mg Nebulizer Once PRN Mekhi Reyes, Review of patient's allergies indicates: Allergen Reactions Adhesive Tape Other Reaction(s): TEARS SKIN Objective: BP 104/60 | Pulse 117 | Temp 37.5 C (99.5 F) (Tympanic) | Resp 18 | Wt 77.8 kg (171 lb 8 oz) | LMP 06/01/2005 | SpO2 94% Comment: 2L O2 | BMI 27.68 kg/m | BSA 1.9 m General: alert, healthy, and no distress Heart: regular rate & rhythm, no murmur, and no gallops Lungs: Expiratory wheezing Abdomen: abdomen soft, non-tender, normal bowel sounds, and no masses or organomegaly Extremities: Area of erythema approximately 2 cm in diameter right posterior elbow, small amount ofpurulent discharge. No area of fluctuance. No joint effusion. Neuro Exam: alert & oriented x 3 with fluent speech, no focal motor/sensory deficits ASSESSMENT: Wound of right upper extremity, initial encounter (Primary) - CULTURE, WOUND, SUPERFICIAL, AEROBIC; Future; Expected date: 11/10/2023 - Cephalexin 500 MG Oral Capsule; Take 1 Capsule by mouth in the morning and 1 Capsule at noon and 1 Capsule before bedtime. Do all this for 10 days. COPD, group D, by GOLD 2017 classification ([facility]) -patient was recently hospitalized for COPD exacerbation. She denies any increasing shortness of breath discharge. She completed antibiotic and prednisone taper. She reports she is compliant with Breo inhaler. Also compliant with nebulizer treatments. She follows closely with Pulmonary Tachycardia -discussed Zio patch findings including tachycardia and SVT. Patient is scheduled to see Cardiology. She denies any change in her symptoms. Type 2 diabetes mellitus with hemoglobin A1c goal of less than 7.0% ([facility]) -patient reports glucose has been well-controlled Follow Up: Return in about 2 months (around 01/10/2024) for Return with Physician-follow up/hospitald/c . | For: Return with Physician-follow up/hospital d/c I spent a total of 30-39 minutes (exact time 35 mins) on the date of service in preparation, delivery, and documentation of the care provided to Krystin Jaffe excluding any time spent in the performance of separately billed services. Meliza Batista PA-C documented in this encounter Nursing Notes * Sheryl Antunez LPN - 11/10/2023 2:45 PM EDT The patient has been properly identified by confirmation of name and date of . Chief Complaint Patient presents with Acute Patient is here with complaints of a bite on her R elbow that happened a few days ago- hot and painful and has drainage. Patient would also like to discuss zio monitor results. documented in this encounter Plan of Treatment Upcoming Encounters Date Type Department Care Team (Late st Contact Info) Description 01/14/2024 12:00 PM EDT Office Visit [address] [phone] Maritza Dumont MD [address] [place] [phone] Pending Results Name Type Priority Associated Diagnoses Date /Time CULTURE, WOUND, SUPERFICIAL, AEROBIC Lab Routine Wound of right upper extremity, initial encounter 11/10/2023 4:46 PM EDT Scheduled Orders Name Type Priority Associated Diagnoses Orde r Schedule CULTURE, WOUND, SUPERFICIAL, AEROBIC Lab Routine Wound of right upper extremity, initial encounter Expected: 11/10/2023, Expires: 11/09/2024 Health Maintenance Due Date Last Done Comments [...] ASSESSMENT COMPLETED IN PAST YEAR FOR COPD 11/09/2024 11/10/2023 Lipid Panel 07/07/2028 07/07/2023, 08/3 , 09/26/2021, Additional history exists Colonoscopy 07/10/2032 07/10/2022, 2 07/2020, 09/10/2020 Colorectal Cancer Screening 07/10/2032 Alpha-1 Antitrypsin [...] as of this encounter Visit Diagnoses Diagnosis Wound of right upper extremity, initial encounter- Primary COPD, group D, by GOLD 2017 classification (HCC) Tachycardia Tachycardia, unspecified Type 2 diabetes mellitus with hemoglobin A1c goal of less than 7.0% (HCC) documented in this encounter Care Teams Chemical Sprayer Relationship Specialty Start Date End Date Mekhi Reyes DO [address] [place] [phone] PCP - General Internal Medicine 12/10/22 documented as of this encounter"
--- OUTSIDE RECORDS SUMMARY | 2023-11-20 04:00 | External Medical Summary | Summary of Care ---
Author Name Unknown Organization [facility] Address [address] [place] [address] Phone [phone] Care Team Providers Care Bottom Scrubber Name Role Phone Mekhi Reyes Primary Care Provid er Encounter Details Date Type Department Care Team ([facility] st Contact Info) Description 11/13/2023 Telephone Family Practice [facility] [address] [place] [address] Meliza Batista PA-C [address] [place] [address] Allergies Active Allergy Reactions Criticality Noted Date Comments Adhesive Tape High 01/09/2023 Other Reaction(s): TEARS SKIN documented as of this encounter (statuses as of 11/17/2023) Medications Medication Sig Dispensed Refills Start Date End Date Status Vitamin D3 1.25 MG (07938 UT) Oral Capsule Take 1 Capsule by [...] or chew. 90 Capsule 3 11/18/2022 Active traZODone HCl 50 MG [...] Take 2 Capsules by mouth. 05/05/2022 Active Silver sulfADIAZINE 1 % External Cream [...] or chew. 50 Capsule 1 07/27/2023 Active Ipratropium-Albuter ol 0.5-2.5 (3) MG/3ML Inhalation Solution (Duoneb)Indications :Severe persistent asthma with (acute) exacerbation,Chroni c hypoxemic respiratory failure (HCC) Inhale 3 mL via nebulizer every 4 hours as needed for Shortness of Breath or Wheezing. 100 mL 2 09/30/2023 Active Azithromycin 250 MG Oral Tablet (Zithromax)Indicati ons:COPD, group D, by GOLD 2017 classification ([facility]) Take 1 Tablet by mouth once a day on Thursday, Thursday, and Thursday only. 36 Tablet 3 10/14/2023 Active Celecoxib 100 MG Oral Capsule (CeleBREX)Indicatio ns:DDD (degenerative disc disease), lumbar Take 1 capsule by mouth in the morning for pain. 90 Capsule 10/26/2023 Active Pantoprazole Sodium 40 MG Oral Tablet Delayed Release (Protonix) TAKE 1 TABLET BY MOUTH IN THE MORNING 90 Tablet 1 11/03/2023 Active Ondansetron HCl 4 MG Oral Tablet (Zofran) Take 1 Tablet by mouth every 6 hours as needed for Nausea. 30 Tablet 3 11/09/2023 Active Cephalexin 500 MG Oral CapsuleIndications: Wound of right upper extremity, initial encounter Take 1 Capsule by mouth in the morning and 1 Capsule at noon and 1 Capsule before bedtime. Do all this for 10 days. 30 Capsule 11/10/2023 4 Active Hospital, Clinic, or Other Facility Administered Medication Ordered Dose Route Frequency Start Date End Date Status Albuterol Sulfate (Proventil) (2.5 MG/3ML) 0.083% inhalation solution 2.5 mgIndications:Screening for respiratory condition 2.5 mg NEBULIZER ONCE PRN 04/01/2022 Active Albuterol Sulfate (Proventil) (2.5 MG/3ML) 0.083% inhalation solution 2.5 mgIndications:COPD, group D, by GOLD 2017 classification ([facility]),Interstitial pulmonary disease (HCC),Shortness of breath 2.5 mg NEBULIZER ONCE PRN 2023 04/02/2024 Active documented as of this encounter (statuses as of 11/17/2023) Active Problems Problem Noted Date Diagnosed Date [...] as of this encounter (statuses as of 11/17/2023) Resolved Problems Problem Noted Date Diagnosed Date [...] as of this encounter (statuses as of 11/17/2023) Immunizations Name Administration Dates Next Due COVID-19 mRNA, LNP-s, No Pre serve, 2-Dose Series ([employer]) 05/15/2021,09/12/2020,08/22/2020 Hepatitis B, 20+ yrs 11/19/2021,05/20/20 21(Deferred: Contraindication),11/13/2020 12/13/2020 Pneumococcal Conjugate Vacc, 13 Valent (Prevnar) 04/20/2018 Pneumococcal Conjugate Vacci ne, 20-valent ([id number]) 01/27/2022 Seasonal Influenza Virus Vac cine, Unspecified [...] Telephone Encounter - Meliza Batista PA-C - 11/17/2023 10:43 AM EDT Attempted to call patient. Phone straight to voicemail. Meliza Batista PA-C 11/17/2023 10:43 AM * Telephone Encounter - May Ybarra RN - 11/13/2023 9:06 AM EDT Phone call follow-up per PCP requesting. No answer. Voicemail left requesting return call. * Telephone Encounter - Meliza Batista PA-C - 11/13/2023 8:48 AM EDT Culture result reviewed. Could we please reach out to Krystin today and be sure that her wound on herelbow is improving. Meliza Batista PA-C 11/13/2023 8:48 AM documented in this encounter Plan of Treatment Upcoming Encounters Date Type Department Care Team ([facility] st Contact Info) Description 01/14/2024 12:00 PM EDT Office Visit [address] [phone] Maritza Dumont MD [address] [place] [phone] Health Maintenance Due Date Last Done [...] COPD 11/09/2024 11/10/2023 Lipid Panel 07/07/2028 07/07/2023, 01/01, 09/26/2021, Additional [...] filedocumented as of this encounter Care Teams Bottom Scrubber Relationship Specialty Start Date End Date Mekhi Reyes DO [address] [place] [phone] PCP - General Internal Medicine 12/10/22 documented as of this encounter
--- OUTSIDE RECORDS SUMMARY | 2023-11-20 04:00 | External Medical Summary | Summary of Care ---
Author Name Unknown Organization [facility] Address [address] [place] [address] Phone [phone] Care Team Providers Care Soil Analyst Name Role Phone Mekhi Ragland DO Primary Care Provid er Reason for Visit * Reason Comments eRx-Medication Refill Encounter Details Date Type Department Care Team ([facility] st Contact Info) Description 11/16/2023 Refill Family [address] [phone] Mekhi Ragland DO [address] [place] [phone] DDD (degenerative disc disease), lumbar; Chronic pain syndrome Allergies Active Allergy Reactions Criticality Noted Date Comments Adhesive Tape High 01/09/2023 Other Reaction(s): TEARS SKIN documented as of this encounter (statuses as of 11/17/2023) Medications Medication Sig Dispensed Refills Start Date End Date Status Vitamin D3 1.25 MG (57891 UT) Oral Capsule Take 1 Capsule by [...] Take 2 Capsules by mouth. 2 Active Silver sulfADIAZINE 1 % External Cream [...] 3 Active Benzonatate 100 MG Oral Capsule (Tessalradha Perlmeliza)Indications :Sinobronchitis Take 1 Capsule by mouth 3 times a day as needed for Cough. Do not cut, crush, or chew. 50 Capsule 1 4 Active Ipratropium-Albute rol 0.5-2.5 (3) MG/3ML Inhalation Solution (Duoneb)Indication s:Severe persistent asthma with (acute) exacerbation,Chron ic hypoxemic respiratory failure (HCC) Inhale 3 mL via nebulizer every 4 hours as needed for Shortness of Breath or Wheezing. 100 mL 2 4 Active Azithromycin 250 MG Oral Tablet (Zithromax)Indicat ions:COPD, group D, by GOLD 2017 classification ([facility]) Take 1 Tablet by mouth once a day on Thursday, Thursday, and Thursday only. 36 Tablet 3 4 Active Celecoxib 100 MG Oral Capsule (CeleBREX)Indicati [...] 3 4 Active Cephalexin 500 MG Oral CapsuleIndications :Wound of right upper extremity, initial encounter Take 1 Capsule by mouth in the morning and 1 Capsule at noon and 1 Capsule before bedtime. Do all this for 10 days. 30 Capsule 4 024 Active traMADol HCl 50 MG Oral Tablet (Ultram)Indication s:DDD (degenerative disc disease), lumbar,Chronic pain syndrome Take 1 Tablet by mouth 2 times a day as needed for Pain, Severe. 60 Tablet 3 4 Active traMADol HCl 50 MG Oral Tablet (Ultram)Indication s:DDD (degenerative disc disease), lumbar,Chronic pain syndrome Take 1 Tablet by mouth 2 times a day as needed for Pain, Severe. 60 Tablet 3 3 024 Discontinued Hospital, Clinic, or Other Facility Administered [...] (Prevnar) 04/20/2018 Pneumococcal Conjugate Vacci ne, 20-valent ([id number]) 01/27/2022 Seasonal Influenza Virus Vac cine, Unspecified [...] encounter Miscellaneous Notes * Telephone Encounter - Mekhi Ragland DO - 11/17/2023 7:45 AM EDT Signed Prescriptions: Disp Refills traMADol HCl 50 MG Oral Tablet (Ultram) 60 Tab*3 Sig: Take 1 Tablet by mouth 2 times a day as needed for Pain, Severe. Authorizing Provider: MEKHI RAGLAND * Telephone Encounter - Tabby Loja [facility] - 11/17/2023 5:36 AM EDTPending Prescriptions: Disp Refills traMADol HCl 50 MG Oral Tablet (Ultram) 60 Tab*3 Sig: Take 1 Tablet by mouth 2 times a day as needed for Pain, Severe. * Telephone Encounter - Tabby Loja [facility] - 11/17/2023 5:36 AM EDT I have reviewed the patients controlled substance dispensing history in the Prescription Drug Monitoring Program in compliance with the [facility] regulations before prescribing a controlled substance. PDMP checked on 11/17/2023. Pending Prescriptions: Disp Refills traMADol HCl 50 MG Oral Tablet (Ultram) [*60 Tab*0 Sig: Take 1 Tablet by mouth 2 times a day as needed for Pain, Severe. Last Visit: 11/10/2023 (in office), Visit date not found (telemedicine) Next Visit: 01/14/2024 Date medication was last filled: 09/28/23 Date medication is due for refill: 10/27/23 Pharmacy: [facility] [address] [place] [address] Is this request for a controlled substance? Yes and Urine Drug Screen Not completed Toxicology results: Results for orders placed or performed in visit on 07/18/22 PAIN MANAGEMENT DRUG PANEL, URINE Result Value Amphetamines Screen, U Negative Benzodiazepines Screen, U Negative Cannabinoids Screen, U Negative Cocaine Metabolite Screen, U Negative Fentanyl Screen, U Negative Hydrocodone Screen, U Negative Methadone Metabolite Screen, U Negative Morphine/Codeine Screen, U Negative Oxycodone Screen, U Negative Valid Interpretation Normal Creatinine, U 58 Narrative Cutoff Concentrations: Drug Level Amphetamines 500 ng/mL Benzodiazepines 100 ng/mL Cannabinoids 50 ng/mL Cocaine Metabolite 150 ng/mL Fentanyl 1 ng/mL Hydrocodone / Hydromorphone 300 ng/mL Methadone Metabolite 100 ng/mL Morphine / Codeine 300 ng/mL Oxycodone / Oxymorphone 100 ng/mL Screening results are presumptive and can only be used for medical purposes. Confirmatory testing is available upon request. Results for orders placed or performed in visit on 01/27/22 TOXICOLOGY, URINE SCREEN W/ CONFIRMATION Result Value Amphetamines Screen, U Positive (A) Benzodiazepines Screen, U Negative Cannabinoids Screen, U Negative Cocaine Metabolite Screen, U Negative Fentanyl Screen, U Negative Hydrocodone Screen, U Negative Methadone Metabolite Screen, U Negative Morphine/Codeine Screen, U Negative Oxycodone Screen, U Positive (A) Narrative Cutoff Concentrations: Drug Level Amphetamines 500 ng/mL Benzodiazepines 100 ng/mL Cannabinoids 50 ng/mL Cocaine Metabolite 150 ng/mL Fentanyl 1 ng/mL Hydrocodone / Hydromorphone 300 ng/mL Methadone Metabolite 100 ng/mL Morphine / Codeine 300 ng/mL Oxycodone / Oxymorphone 100 ng/mL Screening results are presumptive and can only be used for medical purposes. Positive screening results are reflexed to confirmatory testing. Please approve if appropriate. Thank You, Tabby Loja [facility] Clinical Pharmacist [facility] [phone] 11/17/2023, 5:36 AM documented in this encounter Plan of Treatment Upcoming Encounters Date Type Department Care Team (Late st Contact Info) Description 01/14/2024 12:00 PM EDT Office Visit [address] [phone] Maritza Dumont MD [address] [place] [phone] Health Maintenance Due Date Last Done [...] 09/26/2021, Additional history exists Colonoscopy 07/10/2032 07/10/2022, 092 07/2020, 09/10/2020 Colorectal Cancer Screening 07/10/2032 Alpha-1 [...] Visit Diagnoses Diagnosis DDD (degenerative disc disease), lumbar Degeneration of lumbar or lumbosacral intervertebral disc Chronic pain syndrome documented in this encounter Care Teams Soil Analyst Relationship Specialty Start Date End Date Mekhi Ragland DO [address] [place] [address] PCP - General Internal Medicine 12/10/22 documented as of this encounter
--- OUTSIDE RECORDS SUMMARY | 2023-11-20 04:01 | External Medical Summary | Summary of Care ---
Author Name Unknown Organization [facility] Address [address] [place] [address] Phone [phone] Care Team Providers Care Band Shover Name Role Phone Mekhi Reyes Primary Care Provid er Reason for Visit * Reason Onset Date Comments Home Monitoring Orders Only 11/06/2023 Encounter Details Date Type Department Care Team (Latest Contact Info) Description 11/06/2023 Home Monitoring Care Coordination and Integration [address], [place] [phone] Debbie Lopez OSA [address], [place] [phone] COPD exacerbation (HCC)* Allergies Active Allergy Reactions Criticality Noted Date Comments Adhesive Tape High 01/09/2023 Other Reaction(s): TEARS SKIN documented as of this encounter (statuses as of 11/06/2023) Medications Medication Sig Dispensed Refills Start Date End Date Status Vitamin D3 1.25 MG (35460 UT) Oral Capsule Take 1 Capsule by [...] Base) MCG/ACT Inhalation Aerosol SolutionIndications :COPD exacerbation ([facility]) Inhale 2 Puffs by mouth every 6 hours as needed for Shortness of Breath or Wheezing. 8.5 g 5 12/16/2022 Active Spacer/Aero-Holding Chambers Device Use with inhaler. 1 Each 12/16/2022 Active CPAP every night at bedtime. Active Trelegy Ellipta 200-62.5-25 MCG/ACT Aerosol Powder Breath Activated (Fluticasone-Umecli dinium-Vilanterol)I ndications:COPD, group D, by GOLD 2017 classification ([facility]) Inhale 1 Puff by mouth daily. [...] needed for Nausea. 30 Tablet 08/11/2023 Active Ipratropium-Albuter ol 0.5-2.5 (3) MG/3ML Inhalation Solution (Duoneb)Indications :Severe persistent asthma with (acute) exacerbation,Chroni c hypoxemic respiratory failure (HCC) Inhale 3 mL via nebulizer every 4 hours as needed for Shortness of Breath or Wheezing. 100 mL 2 09/30/2023 Active Azithromycin 250 MG Oral Tablet (Zithromax)Indicati ons:COPD, group D, by GOLD 2017 classification ([facility]) Take 1 Tablet by mouth once a day on Thursday, Thursday, and Thursday only. 36 Tablet 3 10/14/2023 Active predniSONE 20 MG Oral Tablet (Deltasone)Indicati ons:COPD, group D, by GOLD 2017 classification ([facility]) Take 3 tabs for 3 days, 2 tabs for 3 days, 1 tab for 3 days, 1/2 tab for 3 days. Rescue kit. 20 Tablet 10/14/2023 Active Celecoxib 100 MG Oral Capsule (CeleBREX)Indicatio ns:DDD (degenerative disc disease), lumbar Take 1 capsule by mouth in the morning for pain. 90 Capsule 10/26/2023 Active Pantoprazole Sodium 40 MG Oral Tablet Delayed Release (Protonix) TAKE 1 TABLET BY MOUTH IN THE MORNING 90 Tablet 1 11/03/2023 Active Hospital, Clinic, or Other Facility Administered [...] as of this encounter (statuses as of 11/06/2023) Active Problems Problem Noted Date Diagnosed Date [...] as of this encounter (statuses as of 11/06/2023) Resolved Problems Problem Noted Date Diagnosed Date [...] as of this encounter (statuses as of 11/06/2023) Immunizations Name Administration Dates Next Due COVID-19 mRNA, LNP-s, No Pre serve, 2-Dose Series ([employer]) 05/15/2021,09/12/2020,08/22/2020 Hepatitis B, 20+ yrs 11/19/2021,05/20/20 21(Deferred: Contraindication),11/13/2020 12/13/2020 Pneumococcal Conjugate Vacc, 13 Valent (Prevnar) 04/20/2018 Pneumococcal Conjugate Vacci ne, 20-valent ([id number]) 01/27/2022 Seasonal Influenza Virus Vac cine, Unspecified [...] Former Cigarettes 2 38 1 976 - 2003 Smokeless Tobacco: Never Alcohol Use Standard Drinks/Week [...] as of this encounter Progress Notes * Debbie Lopez OSA - 11/06/2023 8:45 AM EDT Dis enrolled from Entirely per request: Please discharge the patient from [facility]. Device(s) to be discontinued: 22/12 wearable due to completion of treatment. Thank you. Enrollment Information: Krystin Jaffe [id number] Apr, WEARABLE ONLY Nov 03, 12:57am Name Krystin Jaffe Date of Apr, (age 63) Admission date October 04, 1:56pm (31 days) Kit name carolin pérez Preferred language Guamanian ([place]) Contact number Patient Ro Number - Patient care address [address], [place] [phone] Location Complex Case Management Care provider May Ybarra Program Active Case Management Population Complex Case Management Department -- Primary diagnoses for monitoring COPD documented in this encounter Plan of Treatment Upcoming Encounters Date Type Department Care Team ([facility] st Contact Info) Description 11/13/2023 11:20 AM EDT Office Visit [address] [phone] Maritza Dumont MD [address] [place] [phone] Health Maintenance Due Date Last Done [...] 04/04/2022, Additional history exists Mammogram 07/29/2023 07/29/2022, 04/07/2020, 08/30/2020, Additional history exists *SPIROMETRY ONCE FOR [...] exacerbation documented in this encounter Care Teams Band Shover Relationship Specialty Start Date End Date Mekhi Reyes DO [address] [place] [address] PCP - General Internal Medicine 12/10/22 documented as of this encounter
--- OUTSIDE RECORDS SUMMARY | 2023-11-20 04:01 | External Medical Summary | Summary of Care ---
Author Name Unknown Organization [facility] Address [address] [place] [address] Phone [phone] Care Team Providers Care Upholstery Cutter Name Role Phone Mekhi Ragland Primary Care Provid er Reason for Visit * Reason Comments eRx-Medication Refill Encounter Details Date Type Department Care Team ([facility] st Contact Info) Description 11/02/[address] [phone] Faina Samayoa MD [address] [place] [phone] Encounter for long-term (current) use of other medications* Allergies Active Allergy Reactions Criticality Noted Date Comments Adhesive Tape High 01/09/2023 Other Reaction(s): TEARS SKIN documented as of this encounter (statuses as of 11/03/2023) Medications Medication Sig Dispensed Refills Start Date End Date Status Vitamin D3 1.25 MG (52115 UT) Oral Capsule Take 1 Capsule by [...] Benzonatate 100 MG Oral Capsule (Tessalon Perlmeliza)Indications :Sinobronchitis Take 1 Capsule by mouth 3 times a day as needed for Cough. Do not cut, crush, or chew. 50 Capsule 1 4 Active Ondansetron HCl 4 MG Oral Tablet Take 1 Tablet by mouth every 6 hours as needed for Nausea. 30 Tablet 4 Active Ipratropium-Albute rol 0.5-2.5 (3) MG/3ML Inhalation Solution (Duoneb)Indication s:Severe persistent asthma with (acute) exacerbation,Chron ic hypoxemic respiratory failure (HCC) Inhale 3 mL via nebulizer every 4 hours as needed for Shortness of Breath or Wheezing. 100 mL 2 4 Active Azithromycin 250 MG Oral Tablet (Zithromax)Indicat ions:COPD, group D, by GOLD 2017 classification ([facility]) Take 1 Tablet by mouth once a day on Thursday, Thursday, and Thursday only. 36 Tablet 3 4 Active predniSONE 20 MG Oral Tablet (Deltasone)Indicat ions:COPD, group D, by GOLD 2017 classification ([facility]) Take 3 tabs for 3 days, 2 tabs for 3 days, 1 tab for 3 days, 1/2 tab for 3 days. Rescue kit. 20 Tablet 4 Active Celecoxib 100 MG Oral Capsule (CeleBREX)Indicati ons:DDD (degenerative disc disease), lumbar Take 1 capsule by mouth in the morning for pain. 90 Capsule 4 Active Pantoprazole Sodium 40 MG Oral Tablet Delayed Release (Protonix) TAKE 1 TABLET BY MOUTH IN THE MORNING 90 Tablet 1 4 Active Pantoprazole Sodium 40 MG Oral Tablet Delayed Release (Protonix) Take 1 Tablet by mouth in the morning. 90 Tablet 3 3 024 Discontinued Hospital, Clinic, [...] as of this encounter (statuses as of 11/03/2023) Active Problems Problem Noted Date Diagnosed Date [...] as of this encounter (statuses as of 11/03/2023) Resolved Problems Problem Noted Date Diagnosed Date [...] as of this encounter (statuses as of 11/03/2023) Immunizations Name Administration Dates Next Due COVID-19 mRNA, LNP-s, No Pre serve, 2-Dose Series ([employer]) 05/15/2021,09/12/2020,08/22/2020 Hepatitis B, 20+ yrs 11/19/2021,05/20/20 21(Deferred: Contraindication),11/13/2020 12/13/2020 Pneumococcal Conjugate Vacc, 13 Valent (Prevnar) 04/20/2018 Pneumococcal Conjugate Vacci ne, 20-valent ([id number]) 01/27/2022 Seasonal Influenza Virus Vac cine, Unspecified [...] encounter Miscellaneous Notes * Telephone Encounter - Stuart Art, [facility] - 11/03/2023 4:12 PM EDT Signed Prescriptions: Disp Refills Pantoprazole Sodium 40 MG Oral Tablet Octavia*90 Tab*1 Sig: TAKE 1 TABLET BY MOUTH IN THE MORNINGAuthorizing Provider: MEKHI RAGLAND User: STUART ART documented in this encounter Plan of Treatment Upcoming Encounters Date Type Department Care Team ([facility] st Contact Info) Description 11/13/2023 11:20 AM EDT Office Visit [address] [phone] Maritza Dumont MD [address] [place] [phone] Scheduled Orders Name Type Priority Associated Diagnoses Orde r Schedule MAGNESIUM Lab Routine Encounter for long-term (current) use of other medications Expected: 11/10/2023 (Approximate), Expires: 11/09/2024 VITAMIN B12 Lab Routine Encounter for long-term (current) use of other medications Expected: 11/10/2023 (Approximate), Expires: 11/09/2024 Health Maintenance Due Date Last [...] 04/04/2022, Additional history exists Mammogram 07/29/2023 07/29/2022, 07/2020, 08/30/2020, Additional history exists *SPIROMETRY ONCE FOR ASTHMA-ADULT 10/02/2023 Diabetic Foot Exam 11/19/2023 11/18/2022, 0 11/19/2021, 09/13/2020 Cervical Cancer Screening 12/19/2023 Pap Smear 12/19/2023 12/18/2020 HbA1c 01/05/2024 07/07/2023, 01/01, 09/26/2021, Additional history exists Depression Screening 2024 2023 Albumin/Creatinine Ratio 07/07/2024 07/07/2023, 07/31 GFR 07/07/2024 07/07/2023, 050 06/2022, 07/01/2022, Additional history exists O2 ASSESSMENT [...] long-term (current) use of other medications- Primary documented in this encounter Care Teams Upholstery Cutter Relationship Specialty Start Date End Date Mekhi Ragland DO [address] [place] [phone] PCP - General Internal Medicine 12/10/22 documented as of this encounter
--- OUTSIDE RECORDS SUMMARY | 2023-11-20 04:01 | External Medical Summary ---
Author Name Unknown Address Unknown Organization K01[place] [place] [address] [place] [address] Laboratory Report Ordering Provider Test Date Status SABI ESCUDERO 11/10/2023 16:46:03 Final Elbow Observation Date Value Abnormality Reference (Units ) Status Bacteria identified in Specimen by Culture 11/10/2023 16:46:03 [id number]^STAPHY LOCOCCUS AUREUS Abnormal Final Moderate Staphylococcus rainer us Performing Location [facility] [place] [address] [place] [address] Ordering Provider Test Date Status SABI ESCUDERO 11/10/2023 16:46:03 Final Observation Date Value Abnormality Reference (Units ) Status Clindamycin 11/10/2023 16:46:03 Resistant Final Erythromycin susceptibility 11/10/2023 16:46:03 >=8 Resistant Final Oxacillinsusceptibility 11/10/2023 16:46:03 <=0.25 Susceptible Final Tetracyclinesusceptibility 11/10/2023 16:46:03 <=1 Susceptible Final TMP-SMZ susceptibility 11/10/2023 16:46:03 <=10 Susceptible Final Vancomycinsusceptibility 11/10/2023 16:46:03 1 Susceptible Final Test: Culture, Wound, Superf icial, Aerobic
Specimen Source: Arm, Right
Specimen Type: Superficial Wound
Specimen Date: 11/10/2023 1646
Result Date: 11/12/2023 1329
Result Status: Final result
Abnormal: Yes
Resulting Lab: [facility] [place]
[address]
[place] [address]

CULTURE

Moderate Staphylococcus aureus (Abnormal)

SUSCEPTIBILITY

Staphylococcus
aureus
METHOD MICROBROTH
DILUTIONS

CLINDAMYCIN -- Resistant
ERYTHROMYCIN >=8 Resistant
OXACILLIN <=0.25 Susceptible
TETRACYCLINE <=1 Susceptible
TRIMETH/SULFAMETHOXAZOLE <=10 Susceptible
VANCOMYCIN 1 Susceptible

null Performing Location [facility] [place] [address] [facility] [address]
--- OUTSIDE RECORDS SUMMARY | 2023-11-20 04:01 | External Medical Summary | Summary of Care ---
Author Name Unknown Organization [facility] Address [address] [place] [address] Phone [phone] Care Team Providers Care Manager Code Name Role Phone Bessiebeverley Mekhi Sr Primary [...] Description 11/10/2023 2:40 PM EDT Office Visit [address] [phone] Meliza Batista PA-C [address] [place] [phone] Wound of right upper extremity, initial encounter*; COPD, group D, by GOLD 2017 classification ([facility]); Tachycardia; Type 2 diabetes mellitus with hemoglobin A1c goal of less than 7.0% ([facility]) Allergies Active Allergy Reactions Criticality Noted Date Comments Adhesive Tape High 01/09/2023 Other Reaction(s): TEARS SKIN documented as of this encounter (statuses as of 11/10/2023) Medications Medication Sig Dispensed Refills Start Date End Date Status Vitamin D3 1.25 MG (96006 UT) Oral Capsule Take 1 Capsule by [...] Base) MCG/ACT Inhalation Aerosol SolutionIndications :COPD exacerbation ([facility]) Inhale 2 Puffs by mouth every 6 hours as needed for Shortness of Breath or Wheezing. 8.5 g 5 3 Active Spacer/Aero-Holding Chambers Device Use with inhaler. 1 Each 3 Active CPAP every night at bedtime. Active Trelegy Ellipta 200-62.5-25 MCG/ACT Aerosol Powder Breath Activated (Fluticasone-Umecli dinium-Vilanterol)I ndications:COPD, group D, by GOLD 2017 classification ([facility]) Inhale 1 Puff by mouth daily. 60 [...] ons:COPD, group D, by GOLD 2017 classification ([facility] [...] ns:COPD, group D, by GOLD 2017 classification ([facility]) Take 2 Tablets by mouth daily for 1 day, THEN 1 Tablet daily for 6 days. Rescue kit. 8 Tablet 4 11/10/19 24 Discontinu ed(Medicat ion List Clean Up) predniSONE 20 MG Oral Tablet (Deltasone)Indicati ons:COPD, group D, by GOLD 2017 classification ([facility] [...] mgIndications:COPD, group D, by GOLD 2017 classification ([facility]),Interstitial pulmonary disease ([facility]),Shortness of breath 2.5 mg NEBULIZER ONCE PRN [...] mRNA, LNP-s, No Pre serve, 2-Dose Series ([employer]) 05/15/2021,09/12/2020,08/22/2020 Hepatitis B, 20+ yrs 11/19/2021,05/20/20 21(Deferred: Contraindication),11/13/2020 12/13/2020 Pneumococcal Conjugate Vacc, 13 Valent (Prevnar) 04/20/2018 Pneumococcal Conjugate Vacci ne, 20-valent ([id number]) 01/27/2022 Seasonal Influenza Virus Vac cine, Unspecified [...] disorder Crohn's disease of colon with complication ([facility]) S/P partial resection of colon Interstitial pulmonary disease ([facility]) Overweight (BMI 25.0-29.9) DDD (degenerative disc disease), lumbar Chronic pain syndrome Achilles tendon pain Crohn's disease (HCC) Generalized anxiety disorder COPD, group D, by GOLD 2017 classification ([facility]) Encounter for screening for malignant neoplasm of colon Enthesopathy of knee Hemarthrosis of ankle and foot Leiomyoma of uterus Leukocytosis Malaise and fatigue Other screening mammogram Ovarian cyst Pneumonia due to COVID-19 virus Sciatica Recurrent syncope UTI (urinary tract infection) Tubular adenoma of colon Tachycardia LALO and COPD overlap syndrome ([facility]) Chronic hypoxemic respiratory failure (HCC) Severe persistent asthma with (acute) exacerbation Current Outpatient Medications Medication Sig Dispense Refill Vitamin D3 1.25 MG (11571 UT) Oral Capsule Take 1 Capsule by [...] Ellipta 200-62.5-25 MCG/ACT Aerosol Powder Breath Activated (Walghimsavo-Cciimiorutgj-Fatubnizrn) Inhale 1 Puff by mouth daily. 60 [...] COPD, group D, by GOLD 2017 classification ([facility]) -patient was recently hospitalized for COPD exacerbation. [...] hemoglobin A1c goal of less than 7.0% ([facility]) -patient reports glucose has been well-controlled Follow [...] Description 01/14/2024 12:00 PM EDT Office Visit [address] [phone] Maritza Dumont MD [address] [place] [phone] Scheduled Orders Name Type Priority Associated Diagnoses [...] COPD, group D, by GOLD 2017 classification ([facility]) Tachycardia Tachycardia, unspecified Type 2 diabetes mellitus with hemoglobin A1c goal of less than 7.0% ([facility]) documented in this encounter Care Teams Manager Code Relationship Specialty Start Date End Date Mekhi Reyes DO [address] [place] [phone] PCP - General Internal Medicine 12/10/22 documented as of this encounter"
--- OUTSIDE RECORDS SUMMARY | 2023-11-20 04:01 | External Medical Summary | Summary of Care ---
Author Name Unknown Organization [facility] [address] [facility] [address] Phone [phone] Care Team Providers Care Mail Censor Name Role Phone Dannytia Mekhi Sr Primary Care Provid er Encounter Details Date Type Department Care Team (Late st Contact Info) Description 11/06/2023 Orders Only PATIENT PORTAL DO NOT DELETE THIS DEPT USED BY JOSE ANTONIO VALENTIN [id number] Allergies Active Allergy Reactions Criticality Noted Date Comments Adhesive Tape High 01/09/2023 Other Reaction(s): TEARS SKIN documented as of this encounter (statuses as of 11/06/2023) Medications Medication Sig Dispensed Refills Start Date End Date Status Vitamin D3 1.25 MG (93201 UT) Oral Capsule Take 1 Capsule by [...] Base) MCG/ACT Inhalation Aerosol SolutionIndications :COPD exacerbation ([facility]) Inhale 2 Puffs by mouth every 6 hours as needed for Shortness of Breath or Wheezing. 8.5 g 5 12/16/2022 Active Spacer/Aero-Holding Chambers Device Use with inhaler. 1 Each 12/16/2022 Active CPAP every night at bedtime. Active Trelegy Ellipta 200-62.5-25 MCG/ACT Aerosol Powder Breath Activated (Fluticasone-Umecli dinium-Vilanterol)I ndications:COPD, group D, by GOLD 2017 classification ([facility]) Inhale 1 Puff by mouth daily. 60 [...] ons:COPD, group D, by GOLD 2017 classification ([facility]) Take 1 Tablet by mouth once a day on Thursday, Thursday, and Thursday only. 36 Tablet 3 10/14/2023 Active predniSONE 20 MG Oral Tablet (Deltasone)Indicati ons:COPD, group D, by GOLD 2017 classification ([facility]) Take 3 tabs for 3 days, 2 [...] mgIndications:COPD, group D, by GOLD 2017 classification ([facility]),Interstitial pulmonary disease (HCC),Shortness of breath 2.5 mg [...] mRNA, LNP-s, No Pre serve, 2-Dose Series ([facility]) 05/15/2021,09/12/2020,08/22/2020 Hepatitis B, 20+ yrs 11/19/2021,05/20/20 21(Deferred: Contraindication),11/13/2020 12/13/2020 Pneumococcal Conjugate Vacc, 13 Valent (Prevnar) 04/20/2018 Pneumococcal Conjugate Vacci ne, 20-valent ([id number]) 01/27/2022 Seasonal Influenza Virus Vac cine, Unspecified [...] Upcoming Encounters Date Type Department Care Team ([facility] Contact Info) Description 11/13/2023 11:20 AM EDT Office Visit [address] [phone] Maritza Dumont MD [address] [place] [phone] Health Maintenance Due Date Last Done [...] filedocumented as of this encounter Care Teams Mail Censor Relationship Specialty Start Date End Date Mekhi Reyes DO [address] [place] [id number] PCP - General Internal Medicine 12/10/22 documented as of this encounter
--- OUTSIDE RECORDS SUMMARY | 2023-11-20 04:01 | External Medical Summary | Summary of Care ---
Author Name Unknown Organization [facility] Address [address] [place] [address] Phone [phone] Care Team Providers Care Complementary Health Therapists Name Role Phone Mekhi Ragland Primary Care Provid er Reason for Visit * Reason Comments eRx-Medication Refill Encounter Details Date Type Department Care Team ([facility] st Contact Info) Description 11/07/2023 Refill Family [facility] [address] [place] [phone] Meliza Batista PA-C [address] [place] [address] Allergies Active Allergy Reactions Criticality Noted Date Comments Adhesive Tape High 01/09/2023 Other Reaction(s): TEARS SKIN documented as of this encounter (statuses as of 11/09/2023) Medications Medication Sig Dispensed Refills Start Date End Date Status Vitamin D3 1.25 MG (42838 UT) Oral Capsule Take 1 Capsule by [...] Base) MCG/ACT Inhalation Aerosol SolutionIndication s:COPD exacerbation ([facility]) Inhale 2 Puffs by mouth every 6 hours as needed for Shortness of Breath or Wheezing. 8.5 g 5 3 Active Spacer/Aero-Holdin g Chambers Device Use with inhaler. 1 Each 3 Active CPAP every night at bedtime. Active Trelegy Ellipta 200-62.5-25 MCG/ACT Aerosol Powder Breath Activated (Fluticasone-Umecl idinium-Vilanterol )Indications:COPD, group D, by GOLD 2017 classification ([facility]) Inhale 1 Puff by mouth [...] ions:COPD, group D, by GOLD 2017 classification ([facility]) Take 1 Tablet by mouth once a day on Thursday, Thursday, and Thursday only. 36 Tablet 3 4 Active predniSONE 20 MG Oral Tablet (Deltasone)Indicat ions:COPD, group D, by GOLD 2017 classification ([facility]) Take 3 tabs for 3 days, 2 [...] for Nausea. 30 Tablet 3 4 Active Ondansetron HCl 4 MG Oral Tablet Take 1 Tablet by mouth every 6 hours as needed for Nausea. 30 Tablet 4 024 Discontinued Hospital, Clinic, or Other Facility Administered Medication Ordered Dose Route Frequency Start Date End Date Status Albuterol Sulfate (Proventil) (2.5 MG/3ML) 0.083% inhalation solution 2.5 mgIndications:Screening for respiratory condition 2.5 mg NEBULIZER ONCE PRN 04/01/2022 Active Albuterol Sulfate (Proventil) (2.5 MG/3ML) 0.083% inhalation solution 2.5 mgIndications:COPD, group D, by GOLD 2017 classification ([facility]),Interstitial pulmonary disease (HCC),Shortness of breath 2.5 mg NEBULIZER ONCE PRN 2023 04/02/2024 Active documented as of this encounter (statuses as of 11/09/2023) Active Problems Problem Noted Date Diagnosed Date [...] as of this encounter (statuses as of 11/09/2023) Resolved Problems Problem Noted Date Diagnosed Date [...] as of this encounter (statuses as of 11/09/2023) Immunizations Name Administration Dates Next Due COVID-19 mRNA, LNP-s, No Pre serve, 2-Dose Series ([employer]) 05/15/2021,09/12/2020,08/22/2020 Hepatitis B, 20+ yrs 11/19/2021,05/20/20 21(Deferred: Contraindication),11/13/2020 12/13/2020 Pneumococcal Conjugate Vacc, 13 Valent (Prevnar) 04/20/2018 Pneumococcal Conjugate Vacci ne, 20-valent ([id number]) 01/27/2022 Seasonal Influenza Virus Vac cine, Unspecified [...] Telephone Encounter - Mekhi Ragland DO - 11/09/2023 12:36 PM EDT Signed Prescriptions: Disp Refills Ondansetron HCl 4 MG Oral Tablet (Zofran) 30 Tab*3 Sig: Take 1 Tablet by mouth every 6 hours as needed for Nausea. Authorizing Provider: MEKHI RAGLAND * Telephone Encounter - Radha Zimmerman [facility] - 11/09/2023 12:33 PM EDT Pending Prescriptions: Disp Refills Ondansetron HCl 4 MG Oral Tablet [Pharmacy*30 Tab*0 Sig: Take 1 Tablet by mouth every 6 hours as needed for Nausea. * Telephone Encounter - Radha Zimmerman [facility] - 11/09/2023 12:33 PM EDT Forwarding to provider for further evaluation. Please approve and authorize additional refills if you would like patient to continue this medication. Pharmacy: [facility] # [id number] Pending Prescriptions: Disp Refills Ondansetron HCl 4 MG Oral Tablet (Zofran)*30 Tab*0 Sig: Take 1 Tablet by mouth every 6 hours as needed for Nausea. Last Visit: 10/14/2023 (in office), Visit date not found (telemedicine) Next Visit: 11/10/2023 If no future appointments scheduled, and last appointment is greater than a year ago, please schedule patient for a follow-up appointment Last date the medication was ordered: 08/11/23 Is this request for a controlled substance?No Urine Drug Screen: Results for orders placed or performed in [...] screening results are reflexed to confirmatory testing. Patient Phone Numbers mobile [phone] Labs: Lab Results Component Value Date/Time CREAT 1.3 (H) 07/07/2023 08:03 AM CREAT 1.00 09/29/2022 12:00 AM CREAT 1.3 (H) 12/22/2019 07:57 AM POTASSIUM 4.5 07/07/2023 08:03 AM POTASSIUM 4.2 09/29/2022 12:00 AM POTASSIUM 4.3 12/22/2019 07:57 AM TSH 1.84 07/26/2020 08:58 AM TSH 3.11 12/22/2019 07:57 AM LDLCALC 85 07/07/2023 08:03 AM LDLCALC 104 12/22/2019 07:57 AM ALT 18 07/07/2023 08:03 AM ALT 18 12/22/2019 07:57 AM HGBA1C 6.4 (H) 07/07/2023 08:03 AM HGBA1C 6.8 (H) 12/22/2019 07:57 AM * Telephone Encounter - Interface, [facility] - 11/09/2023 9:49 AM EDT Pending Prescriptions: Disp Refills Ondansetron HCl 4 MG Oral Tablet [Pharmacy*30 Tab*0 Sig: Take 1Tablet by mouth every 6 hours as needed for Nausea. documented in this encounter Plan of Treatment Upcoming Encounters Date Type Department Care Team ([facility] st Contact Info) Description 11/10/2023 2:40 PM EDT Office Visit [address] [phone] Meliza Batista PA-C [address] [place] [address] Health Maintenance Due Date Last Done Comments DTaP,Tdap,and Td Vaccines (1 - Tdap) 1981 HPV/Co-Test 1992 Cologuard 2007 Fecal Occult Blood Test 2007 Sigmoidoscopy 2007 *COPD SEVERITY VERIFIED BY PFT 09/05/2020 Hepatitis B (3 of 3 - 19+ 3-dose series) 01/14/2022 11/19/2021, 11/13/2020 COVID-19 Vaccine ( - 2022- season) 2023 05/29/2021, 05/15/2021, 09/12/2020, Additional history [...] filedocumented as of this encounter Care Teams Complementary Health Therapists Relationship Specialty Start Date End Date Mekhi Ragland DO [address] [place] [phone] PCP - General Internal Medicine 12/10/22 documented as of this encounter
--- OUTSIDE RECORDS SUMMARY | 2023-11-20 04:01 | External Medical Summary | Summary of Care ---
Author Name Unknown Organization [facility] Address [address] [place] [address] Phone [phone] Care Team Providers Care Lawn Service Worker Name Role Phone Mekhi Reyes DO Primary Care Provid er Reason for Visit * Reason Onset Date Comments Test Results 11/03/2023 Zio Patch Encounter Details Date Type Department Care Team ([facility] st Contact Info) Description 11/03/2023 Telephone Family [address] [phone] Mekhi Reyes DO [address] [place] [phone] Test Results (Zio Patch) Allergies Active Allergy Reactions Criticality Noted Date Comments Adhesive Tape High 01/09/2023 Other Reaction(s): TEARS SKIN documented as of this encounter (statuses as of 11/04/2023) Medications Medication Sig Dispensed Refills Start Date End Date Status Vitamin D3 1.25 MG (33336 UT) Oral Capsule Take 1 Capsule by [...] ons:COPD, group D, by GOLD 2017 classification ([facility]) Take 1 Tablet by mouth once a day on Thursday, Thursday, and Thursday only. 36 Tablet 3 10/14/2023 Active predniSONE 20 MG Oral Tablet (Deltasone)Indicati ons:COPD, group D, by GOLD 2017 classification ([facility]) Take 3 tabs for 3 [...] as of this encounter (statuses as of 11/04/2023) Active Problems Problem Noted Date Diagnosed Date [...] as of this encounter (statuses as of 11/04/2023) Resolved Problems Problem Noted Date Diagnosed Date [...] as of this encounter (statuses as of 11/04/2023) Immunizations Name Administration Dates Next Due COVID-19 mRNA, LNP-s, No Pre serve, 2-Dose Series ([employer]) 05/15/2021,09/12/2020,08/22/2020 Hepatitis B, 20+ yrs 11/19/2021,05/20/20 21(Deferred: Contraindication),11/13/2020 12/13/2020 Pneumococcal Conjugate Vacc, 13 Valent (Prevnar) 04/20/2018 Pneumococcal Conjugate Vacci ne, 20-valent ([id number]) 01/27/2022 Seasonal Influenza Virus Vac cine, Unspecified [...] encounter Miscellaneous Notes * Telephone Encounter - Leticia Graves CCMA - 11/04/2023 12:09 PM EDT Called and spoke with patient and gave below results. Patient verbalized understanding and would like to discuss these results in more depth at her next office visit. No other concerns at this time. * Telephone Encounter - Mekhi Reyes DO - 11/03/2023 4:44 PM EDT Reviewed patient's Zio patch. Shows baseline sinus tachycardia. She had many short runs of SVT. This could certainly be related to her chronic pulmonary disease. Would recommend consideration of tests such as stress echo. Should be discussed at her next appointment * Telephone Encounter - Kaylene Sullivan OSA - 11/03/2023 1:27 PM EDT Who is Requesting Test Results: Krystin Jaffe Primary Care Provider : Mekhi Reyes DO Tests Results Requested : Zio Patch Date of Test : 10.14.2023 Location of Test: Home-Mailed In Ordering Provider: Dr Mekhi Reyes Patient has been made aware that the turnaround time for test results are typically as follows: Laboratory results = within 2-3 days ([facility]), 3-5 days (Non-[facility], ie. [facility]) Urine Cultures = within 2-3 days depending on growth within the culture Pathology results (biopsy results/PAP) = 1-2 weeks Radiology results = about 1 week Cologuard results = within 2 weeks from the shipment date COVID testing = about 24 hours documented in this encounter Plan of Treatment Upcoming Encounters Date Type Department Care Team (Late st Contact Info) Description 11/13/2023 11:20 AM EDT Office Visit [address] [phone] Maritza Dumont MD [address] [place] [phone] Health Maintenance Due Date Last Done [...] filedocumented as of this encounter Care Teams Lawn Service Worker Relationship Specialty Start Date End Date Mekhi Reyes DO [address] [place] [address] PCP - General Internal Medicine 12/10/22 documented as of this encounter
[2023-11-20 06:44] LABS: Base Excess VBG 5.1 mEq/L; HCO3 VBG 31 mmol/L; Oxygen Saturation VBG 67.1 %; PCO2 VBG 47 mmHg (38-50); PO2 VBG 37 mmHg; pH VBG 7.42 (7.36-7.41)
[2023-11-20 06:49] LABS: Hematocrit (blood only) 35.9 % (37.0-47.0); Hemoglobin 11.4 g/dl (12.0-16.0); Mean Corpuscular Hemoglobin 29.2 pg (25.0-34.0); Mean Corpuscular Hgb Conc 31.8 g/dL (32.0-36.0); Mean Corpuscular Volume 91.8 fL (80.0-100.0); Mean Platelet Volume 9.9 fL (9.4-12.4); Platelet Count 241 K/uL (130-400); RDW Coefficient of Variation 13.2 % (11.5-14.5); RDW Standard Deviation 43.8 fL (36.4-46.3); Red Blood Count 3.91 M/uL (4.20-5.40); White Blood Count 6.68 K/ul (4.8-10.8)
[2023-11-20 07:07] LABS: Calcium 9.4 mg/dl (8.6-10.3); Creatinine Clr Calc Pharmacy 69.5 ml/min; Est GFR (African American) 82.2 ml/min; Est GFR (Non-African American) 70.9 ml/min; Magnesium 1.9 mg/dl (1.7-2.4); Potassium 4.5 mmol/L (3.5-5.1)
[2023-11-20] MEDS: BUDESONIDE 0.5 MG/2 ML VIAL (PULMICORT) NEB SCH (08:00)
[2023-11-20 08:13] LABS: Estimated Average Glucose 131 mg/dl; Hemoglobin A1C 6.2 % (4.5-5.6)
--- NOTE | 2023-11-20 08:47 | Pulmonary Consultation ---
Date of Consultation November 20, 2023 Assessment & Plan (1) Acute exacerbation of chronic obstructive pulmonary disease: (2) Shortness of breath: (3) Eosinophilic asthma: (4) Chronic respiratory failure with hypoxia: Plan IMPRESSION: 63-year-old female with a significant pulmonary history of COPD with emphysema, eosinophilic asthma, obstructive sleep apnea, chronic respiratory failure with hypoxia, and prior history of smoking who presents in the setting of COPD with exacerbation and worsening dyspnea. RECOMMENDATIONS: 1. COPD with exacerbation -continue Solu-Medrol. Will hold chronic azithromycin therapy for now and complete course of doxycycline. Continue budesonide and Perforomist. Add Incruse. Can use as needed DuoNebs. If she improves, can transition to oral steroids and disposition out of the hospital with outpatient pulmonary follow-up. Can address restarting chronic azithromycin therapy and consider trilogy as well as potential nocturnal positive pressure ventilation in lieu of her CPAP with her outpatient personal carer (Dr. Green). 2. Shortness of breath -multifactorial, but largely driven by the patient's pulmonary status with COPD exacerbation. Cardiac evaluation per primary admitting service 3. Eosinophilic asthma - Recently started on Tezspire. Will need to restart in the outpatient setting 4. Chronic respiratory failure with hypoxia -continue oxygen titrated to keep saturations at or above 88% 5. Obstructive sleep apnea - Continue with home CPAP settings at night. Thank you for allowing us to participate in the care of this pleasant patient. Pulmonary medicine will continue to follow. History of Present Illness Attending Physician: Temo Crawford MD History of Present Illness Asked by hospitalist to assist in evaluation management this patient mated with COPD exacerbation. History is obtained from discussion with the patient and review of the electronic medical record. Patient is a 63-year-old female with a history of advanced COPD. She is well- known to the pulmonary service and is followed in the outpatient setting. She presented to the hospital yesterday with complaints of shortness of breath. She been using her Breztri inhaler at home but felt that this was not as effective as her prior nebulizer therapies. She was found to be mildly hypercarbic. She was treated with antibiotics and steroids and admitted to the hospital. This morning, she continues to complain of some chest tightness. She does state the nebulized therapies appear to be more effective than her traditional inhalers. Her hypercarbia this morning is resolved. Allergies Allergy/AdvReac Type Severity Reaction Status Date / Time adhesive tape AdvReac Severe TEARS SKIN Verified 10/21/23 20:24 Home Medications Medication Instructions Recorded Confirmed Type cholecalciferol (vitamin D3) 25 1,000 unit PO QAM 08/25/18 11/19/23 History mcg (1,000 unit) capsule (Vitamin D3) bupropion HCl 150 mg 24 hr tablet, 150 mg PO DAILYBL 08/08/20 11/19/23 History extended release multivit-iron 18 mg-folic acid 400 1 tab PO QAM 08/08/20 11/19/23 History mcg-calcium 500 mg-minerals tablet (Women's One Daily) atorvastatin 40 mg tablet 40 mg PO HS 03/17/21 11/19/23 History trazodone 50 mg tablet 50 mg PO HS 03/17/21 11/19/23 History pantoprazole 40 mg tablet,delayed 40 mg PO QAM gastritis #90 tabs 06/24/21 11/19/23 Rx release (Protonix) celecoxib 100 mg capsule 100 mg PO DAILY 04/04/23 11/19/23 History duloxetine 60 mg capsule,delayed 60 mg PO QAM 04/04/23 11/19/23 History release gabapentin 800 mg tablet 800 mg PO TID 04/04/23 11/19/23 History tramadol 50 mg tablet 50 mg PO BID PRN Pain 04/04/23 11/19/23 History Portable Oxygen #1 ea 05/06/23 11/19/23 Rx albuterol sulfate 90 mcg/actuation 2 puff inhalation Q4H PRN 05/06/23 11/19/23 Rx aerosol inhaler Shortness Of Breath Or Wheezing #8.5 grams tezepelumab-ekko 210 mg/1.91 mL 210 mg (1.91 mL) subcut Q4WK #1.91 05/14/23 11/19/23 Rx (110 mg/mL) subcutaneous pen mL injector (Tezspire) ipratropium 0.5 mg-albuterol 3 mg 3 ml inhalation QID PRN Shortness 06/17/23 11/19/23 History (2.5 mg base)/3 mL nebulization Of Breath Or Wheezing soln lisinopril 2.5 mg tablet 2.5 mg PO DAILY 06/17/23 11/19/23 History benzonatate 100 mg capsule 100 mg PO TID PRN cough #30 caps 06/20/23 11/19/23 Rx infliximab 100 mg intravenous See Rx Instructions IV Q8WK #8 ea 10/12/23 11/19/23 Rx solution (Remicade) azithromycin 250 mg tablet 250 mg PO 3XWK 10/21/23 11/19/23 History budesonide 0.5 mg/2 mL suspension 0.5 mg (2 mL) NEB BIDR #60 doses 10/23/23 11/19/23 Rx for nebulization formoterol fumarate 20 mcg/2 mL 20 mcg (2 mL) NEB BIDR #60 doses 10/23/23 11/19/23 Rx solution for nebulization (Perforomist) prednisone 10 mg tablet 10 mg PO DIRECTED #30 tabs 10/23/23 11/19/23 Rx budesonide 160 mcg-glycopyr 9 2 inh inhalation BID #10.7 grams 10/27/23 11/19/23 Rx mcg-formot 4.8 mcg/actuation HFA inhaler (Breztri [employer]) Patient History Medical History Leiomyoma of uterus History of COVID-19 diagnosed 03/17/21 @ [facility]--had difficulty breathing d/t COPD and had to hospitalized with oxygen for 1 week, pt states no lingering symptoms Crohns disease GERD (gastroesophageal reflux disease) Anxiety History of migraine DVT prophylaxis COPD (chronic obstructive pulmonary disease) well controlled w/ inhaler daily/prn, has not needed neb in "a while" Surgical History History of appendectomy S/P colon resection (07/04/21) Laparoscopic Assisted Right Colon Resection - Gildardo Woods MD, FACS 07/04/2021 History of esophagogastroduodenoscopy (EGD) History of tooth extraction History of tubal ligation History of D&C History of appendectomy History of lumbar surgery x 5; hardware present History of colonoscopy last 02/21/21 @ [facility] History of carpal tunnel surgery BL Family History Brother Diabetes Father , in early 60s from AMI Diabetes Myocardial infarction Mother , in her 60s; "natural" causes No problems noted. Other No family history of adverse response to anesthesia Denies family history of Inflammatory bowel disease Social History Smoking Status: Former smoker Tobacco Type: Cigarettes Age Started Using Tobacco: 16; Age Quit Using Tobacco: 43; packs per day: 2.5; Smoking End Date: approx. 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 Beliefs That Will Affect Care: None marital status: Current Living Situation: Spouse Current Living Situation Comment: lives with and grandson current occupational status: retired current occupation: worked at [employer] How many Children do You have: 1 Other Information That Helps Us Care for You: No other: lives in [place] Feels Safe at Home: Yes Safety Concerns: Feels Safe At This Time Diet: diabetic Seatbelt Use: always Do you think of yourself as: straight/heterosexual Gender Identity: Female Assistive Devices: CPAP, Denture - Upper, Denture - Lower, Glasses and Oxygen - Continuous Review of Systems Review of Systems: Please refer to admission H&P. No additions or deletions Physical Exam Physical Exam: VITAL SIGNS - Vital signs and nursing notes were reviewed. GENERAL - 63-year-old female appearing her stated age who is in no acute distress. Communicates well with provider and answers questions appropriately. SKIN - Without rashes or lesions. NOSE - Midline and without cyanosis. MOUTH/OROPHARYNX - Without perioral cyanosis. Buccal mucosa pink and moist and without leukoplakia or thrush. NECK - Neck with FROM. LUNGS - Chest wall evaluation demonstrates normal chest wall A:P diameter. Auscultation reveals no wheezing. Breath sounds are diminished bilaterally. No rales appreciated. CARDIAC - RRR with S1/S2. No murmur, rubs, or gallops appreciated. ABDOMEN - Abdominal inspection demonstrates an obese abdomen. BS normoactive all four quadrants. No tenderness, palpable masses, or ascites noted. EXTREMITIES - Nail clubbing not present. No peripheral cyanosis. No pretibial edema present. +3/5 radial palpated throughout. PSYCH - A&Ox3 and cooperates fully with examiner. Pt is very pleasant and interacts well with examiner. Results & Data Results & Data Vital Signs (Past 12 Hours) Vital Signs Temp Pulse Pulse Resp BP BP Pulse Ox 11/20/23 08:00 118 H 18 94 11/20/23 07:28 36.7 C 118 H 18 121/66 95 11/20/23 07:17 119 H 11/20/23 07:11 122 H 20 96 11/20/23 04:30 36.7 C 109 H 18 120/62 91 11/20/23 03:45 115 H 24 95 11/20/23 03:40 115 H 24 95 11/20/23 00:01 116 H 25 H 93 11/19/23 23:33 36.5 C 109 H 18 118/66 93 11/19/23 22:10 113 H 20 93 11/19/23 21:58 117 H O2 Del Method O2 Flow Rate FiO2 11/20/23 08:00 Nasal Cannula 2 11/20/23 07:28 Nasal Cannula 2 11/20/23 07:17 11/20/23 07:11 Nasal Cannula 2 11/20/23 04:30 Room Air 11/20/23 03:45 2 11/20/23 03:40 CPAP 2 11/20/23 00:01 CPAP 2 11/19/23 23:33 CPAP 11/19/23 22:10 2 28 11/19/23 21:58 Critical Care Results & Data Vital Signs (Past 12 Hours) Vital Signs Temp Pulse Pulse Resp BP BP Pulse Ox 11/20/23 08:00 118 H 18 94 11/20/23 07:28 36.7 C 118 H 18 121/66 95 11/20/23 07:17 119 H 11/20/23 07:11 122 H 20 96 11/20/23 04:30 36.7 C 109 H 18 120/62 91 11/20/23 03:45 115 H 24 95 11/20/23 03:40 115 H 24 95 11/20/23 00:01 116 H 25 H 93 11/19/23 23:33 36.5 C 109 H 18 118/66 93 11/19/23 22:10 113 H 20 93 11/19/23 21:58 117 H O2 Del Method O2 Flow Rate FiO2 11/20/23 08:00 Nasal Cannula 2 11/20/23 07:28 Nasal Cannula 2 11/20/23 07:17 11/20/23 07:11 Nasal Cannula 2 11/20/23 04:30 Room Air 11/20/23 03:45 2 11/20/23 03:40 CPAP 2 11/20/23 00:01 CPAP 2 11/19/23 23:33 CPAP 11/19/23 22:10 2 28 11/19/23 21:58 Lab & Micro Results (Past 24 Hours) RBC 3.91 M/uL (4.20-5.40) L 11/20/23 WBC 6.68 K/ul (4.8-10.8) 11/20/23 Hgb 11.4 g/dl (12.0-16.0) L 11/20/23 Hct 35.9 % (37.0-47.0) L 11/20/23 MCV 91.8 fL (80.0-100.0) 11/20/23 MCH 29.2 pg (25.0-34.0) 11/20/23 MCHC 31.8 g/dL (32.0-36.0) L 11/20/23 RDW Standard Deviation 43.8 fL (36.4-46.3) 11/20/23 RDW Coefficient of Variation 13.2 % (11.5-14.5) 11/20/23 Plt Count 241 K/uL (130-400) 11/20/23 MPV 9.9 fL (9.4-12.4) 11/20/23 Neutrophils (%) (Auto) 90.3 % 11/19/23 Lymphocytes (%) (Auto) 8.0 % 11/19/23 Monocytes # (Auto) 0.04 K/uL (0.11-0.59) L 11/19/23 Eosinophils # (Auto) 0.00 K/uL (0.00-0.50) 11/19/23 Immature Granulocyte % (Auto) 0.5 % 11/19/23 Neutrophils # (Auto) 3.74 K/uL (1.40-6.50) 11/19/23 Lymphocytes # (Auto) 0.33 K/uL (1.20-3.40) L 11/19/23 Monocytes # (Auto) 0.04 K/uL (0.11-0.59) L 11/19/23 Eosinophils # (Auto) 0.00 K/uL (0.00-0.50) 11/19/23 Basophils # (Auto) 0.01 K/uL (0.00-0.20) 11/19/23 Immature Granulocyte # (Auto) 0.02 K/uL (0.01-0.20) 4 Hypersegmented Neutrophils 1+ 11/19/23 Ovalocytes 1+ 11/19/23 Na 140 mmol/L (136-145) 11/20/23 K 4.5 mmol/L (3.5-5.1) 11/20/23 Cl 104 mmol/L (98-107) 11/20/23 CO2 33 mmol/L (21-32) H 11/20/23 Anion Gap 3 (3-11) 11/20/23 BUN 15 mg/dl (6-23) 11/20/23 Creatinine 0.88 mg/dl (0.6-1.2) 11/20/23 Estimated GFR ( Amer) 82.2 ml/min 11/20/23 Estimated GFR (Non-Af Amer) 70.9 ml/min 11/20/23 BUN/Creatinine Ratio 17.0 (10-20) 11/20/23 Glu 139 mg/dl (70-99(Fasting)) H 11/20/23 Ca 9.4 mg/dl (8.6-10.3) 11/20/23 Total Bilirubin 0.3 mg/dl (0.2-1.0) 11/19/23 AST 12 U/L (13-39) L 11/19/23 ALT 11 U/L (7-52) 11/19/23 Alkaline Phosphatase 81 U/L (34-104) 11/19/23 TP 6.7 gm/dl (6.0-8.3) 11/19/23 Albumin 3.8 gm/dl (3.4-5.0) 11/19/23 Globulin 2.9 gm/dl (2.5-4.0) 11/19/23 Albumin/Globulin Ratio 1.3 (0.9-2) 11/19/23 Mg 1.9 mg/dl (1.7-2.4) 11/20/23 06:32 Calcium Level 9.4 mg/dl (8.6-10.3) 11/20/23 06:32 Venous Blood pH 7.42 (7.36-7.41) H 11/20/23 06:32 Venous Blood Partial Pressure CO2 47 mmHg (38-50) 11/20/23 06:3 2 Venous Blood Partial Pressure O2 37 mmHg 11/20/23 06:32 Venous Blood HCO3 31 mmol/L 11/20/23 06:32 Venous Blood Base Excess 5.1 mEq/L 11/20/23 06:32 Venous Blood Oxygen Saturation 67.1 % 11/20/23 06:32 Diagnostic Findings (Past 24 Hours) Chest X-Ray 11/19/23 14:43 XR chest 1V portable CLINICAL HISTORY: Chest pain, nonspecific TECHNIQUE: Single frontal radiograph of the chest was obtained. Comparison: Comparison is made to CTA chest 10/21/2023 and chest radiograph 10/21/2023 FINDINGS: No lines and tubes are seen. Cardiomegaly is noted. The lungs are clear. No evidence of pleural effusion or pneumothorax. Blunting of the left costophrenic angle is compatible with extrapleural fat. IMPRESSION: No acute chest disease. Cardiomegaly is noted. ACT 112: Negative or not required by law. Electronically signed by: Emanuel Ambrose M.D. 11/19/2023 3:25 PM Chest CTA 11/19/23 16:49 CT ANGIOGRAM OF THE CHEST CLINICAL HISTORY: Atypical chest pain. COMPARISON STUDY: Chest CT dated 10/21/2023. Chest x-ray dated 11/19/2023. TECHNIQUE: Following the IV administration of 119 cc of Optiray 320, CT angiogram of the chest was performed from the upper abdomen to the thoracic inlet using the pulmonary embolus protocol. Images are reviewed in the axial, sagittal, and coronal planes. 3-D MIPS images are created and assessed. IV contrast was administered without complication. A dose lowering technique was utilized adhering to the principles of ALARA. CT DOSE: 627.34 mGy.cm FINDINGS: Thyroid: Enlarged and heterogeneous, typical for goiter. Calcifications are noted in both lobes. Thoracic aorta: There is atherosclerotic calcification of the thoracic aorta, which is normal in caliber and demonstrates bovine variant arch anatomy. No dissection is seen. Pulmonary vasculature: The pulmonary trunk is normal in caliber. There are no filling defects identified within the main, lobar, or segmental pulmonary branches to indicate pulmonary embolus. Heart: The heart is top normal in size and without pericardial effusion. There are coronary artery calcifications. Lungs and pleural spaces: There is mild emphysematous change. There is no lobar consolidation or pleural effusion. The trachea and central airways are clear faint tree-in-bud opacities within the upper lobes are likely inflammatory. Diffuse peribronchial thickening is observed. Mediastinum: There is no mediastinal lymphadenopathy. Therese: Clear. Axillae: There is no axillary lymphadenopathy. Upper abdomen: Partially visualized upper abdominal viscera is within normal limits. Skeletal structures: The skeletal structures are osteopenic. Degenerative change is noted in the shoulders and spine. No lytic or blastic bony lesions are seen. There are chronic/healed right-sided rib fractures. IMPRESSION: 1. There is no evidence of pulmonary embolus in the main, lobar, or segmental pulmonary arteries. 2. Mild emphysema. 3. There is no airspace consolidation or pleural effusion. 4. Diffuse peribronchial thickening suggests bronchitis/reactive air disease and faint upper lobe tree in bud opacities are likely inflammatory. Correlate clinically. 5. Additional findings as above. ACT 112: Negative or not required by law. Electronically signed by: Sean Kirkpatrick M.D. 11/19/2023 6:47 PM I & O Totals 24 Hours 11/19/23 11/20/23 11/21/23 06:59 06:59 06:59 Intake Total 250 / 250 Balance 250 / 250 Cumulative 11/19/23 14:12 thru 11/20/23 06:00 Intake Total 250 Balance 250 RT Ventilator Mngmt (Last Documented) Ventilator Ordered Settings Respiratory Rate 18 11/20/23 08:00 Fraction of Inspired Oxygen 28 11/19/23 22:10 Ventilator - PT Measurements Respiratory Rate 18 PG Care Time/CCT Total # of Minutes Spent Total Time Spent with Patient: Total time spent is greater than 50% in coordination of care (as documented) at patient's floor/unit and/or counseling patient: Coding Level of Care Code 37311 INT INP/OBS CARE 3/75MIN Diagnoses Acute exacerbation of chronic obstructive pulmonary disease J44.1 Shortness of breath R06.02 Eosinophilic asthma J82.83 Chronic respiratory failure with hypoxia J96.11
[2023-11-20] MEDS ORDERED: AZITHROMYCIN 250 MG TAB PO SCH (09:00)
[2023-11-20] MEDS ORDERED: UMECLIDINIUM BROMIDE 62.5MCG/BLISTER 7 PUFFS/INHALER INH SCH (09:00)
[2023-11-20] MEDS: LEVALBUTEROL 1.25 MG/3 ML NEB NEB SCH (09:11)
[2023-11-20] MEDS: buPROPion XL 150 MG TABCR PO SCH (09:20)
[2023-11-20] MEDS: UMECLIDINIUM BROMIDE 62.5MCG/BLISTER 7 PUFFS/INHALER INH SCH (09:20)
[2023-11-20] MEDS: lisinopril 2.5 MG TAB PO SCH (09:20)
[2023-11-20] MEDS: PANTOprazole 40 MG TAB PO SCH (09:21)
[2023-11-20] MEDS: CHOLECALCIFEROL 25 MCG (1000 UNITS) TAB PO SCH (09:21)
[2023-11-20] MEDS: DULoxetine HCL 60 MG CAP PO SCH (09:21)
[2023-11-20] MEDS: CELECOXIB 100 MG CAP PO SCH (09:21)
--- NOTE | 2023-11-20 09:40 | Gastrointestinal Consultation ---
Date of Consultation November 20, 2023 Assessment & Plan (1) Crohns disease: 63 year old female with history of COPD, asthma, LALO, crohn's colitis w/ severe stricture s/p laparoscopic resection in 2021 previously on remicade who is admitted with respiratory distress and positive for enterovirus/rhinovirus who notes chronic abd pain, nausea, GERD. Given her respiratory status, no acute indication for inpatient endoscopic evaluation I contacted the office to move up her clinic appointment to the beginning of November. Her respiratory status can be evaluated at that time to assess candidacy for EGD/Colonoscopy Continue Pantoprazole May use Zofran as needed Continue Remicade Should have drug levels/antibodies prior to next infusion If she develops any loose stools please check stool studies If she develops any acute abdominal discomfort, should arrange CT Thank you for allowing us to participate in the care of this patient. Please call with any acute changes, questions or concerns. Please see addendum below with additional recommendation from my supervising physician. I spent a total of 60 minutes on the date of service in review of patient's record, and previously obtained information in person and appropriate medical visit, discussion and education of plan, with patient and/or caregiver, placing orders for tests/referral/procedures as medically necessary and documentation of pertinent clinical information in patient's medical records for their visit today. Supervising Physician Co-Signing Physician Notes I examined the patient and reviewed patient's chart , laboratory data and imaging studies. I agree with with assessment and plan of care as suggested by advanced practice provider. Complaints of worsening Abdominal pain and diarrhea. 1 episode of blood in the stool. Exacerbation of Crohn's disease. Obtain fecal calprotectin. Obtain trough infliximab level. Office visit next week. Colonoscopy to be scheduled soon, when improves from a respiratory standpoint. History of Present Illness Reason for Consultation: abd pain Requesting Physician: Yvette Attending Physician: Temo Crawford MD History of Present Illness 63 year old female with history of COPD, asthma, LALO, crohns colitis w/ severe strictur s/p laparoscopic resection in 2021 previously on 6mp and remicade who is admitted with respiratory distress and positive for enterovirus/rhinovirus. GI was asked to evaluate given her history of crohn's and abd pain. Pt was seen and evaluated, chart reviewed. Notes her GI symptoms are chronic, unchanged. Generalized abd pain. Chronic nausea. Intermittent emesis, bilious. A lot of heartburn. No dysphagia. Stools ove okay. Maybe 1-2 times daily. No report of black or bloody stools. No fever, chills, CP, SOB. No recent abdominal imaging No recent stool testing Colonoscopy 2022: - Diverticulosis in the sigmoid colon. - Non-bleeding internal hemorrhoids. - Two 3 mm polyps in the rectum, removed with a cold snare. Resected and retrieved. - The colonic anastomosis and entire examined colon are normal. Biopsied. Colonoscopy 2020: - Moderate diverticulosis in the sigmoid colon and in the descending colon. There was narrowing of the colon in association with the diverticular opening. Erythema was seen in association with the diverticular opening. - Stricture in the ascending colon. Dilated. Biopsied. - Non-bleeding internal hemorrhoids. EGD 2020: - Normal esophagus. - Gastritis. Biopsied. - Normal duodenal bulb and second portion of the duodenum. Colonoscopy 2020: - Stricture in the ascending colon. Biopsied. Tattooed. - Moderate diverticulosis in the sigmoid colon. There was narrowing of the colon in association with the diverticular opening. Biopsied. - One 3 mm polyp in the ascending colon, removed with a cold biopsy forceps. Resected and retrieved. - One 2 mm polyp in the transverse colon, removed with a cold biopsy forceps. Resected and retrieved. - One 7 mm polyp in the descending colon, removed with a cold snare. Resected and retrieved. - Four 4 to 6 mm polyps in the rectum, removed with a cold snare. Resected and retrieved. Clips were placed. - Non-bleeding external hemorrhoids. Allergies Allergy/AdvReac Type Severity Reaction Status Date / Time adhesive tape AdvReac Severe TEARS SKIN Verified 10/21/23 20:24 Home Medications Medication Instructions Recorded Confirmed Type cholecalciferol (vitamin D3) 25 1,000 unit PO QAM 08/25/18 11/19/23 History mcg (1,000 unit) capsule (Vitamin D3) bupropion HCl 150 mg 24 hr tablet, 150 mg PO DAILYBL 08/08/20 11/19/23 History extended release multivit-iron 18 mg-folic acid 400 1 tab PO QAM 08/08/20 11/19/23 History mcg-calcium 500 mg-minerals tablet (Women's One Daily) atorvastatin 40 mg tablet 40 mg PO HS 03/17/21 11/19/23 History trazodone 50 mg tablet 50 mg PO HS 03/17/21 11/19/23 History pantoprazole 40 mg tablet,delayed 40 mg PO QAM gastritis #90 tabs 06/24/21 11/19/23 Rx release (Protonix) celecoxib 100 mg capsule 100 mg PO DAILY 04/04/23 11/19/23 History duloxetine 60 mg capsule,delayed 60 mg PO QAM 04/04/23 11/19/23 History release gabapentin 800 mg tablet 800 mg PO TID 04/04/23 11/19/23 History tramadol 50 mg tablet 50 mg PO BID PRN Pain 04/04/23 11/19/23 History Portable Oxygen #1 ea 05/06/23 11/19/23 Rx albuterol sulfate 90 mcg/actuation 2 puff inhalation Q4H PRN 05/06/23 11/19/23 Rx aerosol inhaler Shortness Of Breath Or Wheezing #8.5 grams tezepelumab-ekko 210 mg/1.91 mL 210 mg (1.91 mL) subcut Q4WK #1.91 05/14/23 11/19/23 Rx (110 mg/mL) subcutaneous pen mL injector (Tezspire) ipratropium 0.5 mg-albuterol 3 mg 3 ml inhalation QID PRN Shortness 06/17/23 11/19/23 History (2.5 mg base)/3 mL nebulization Of Breath Or Wheezing soln lisinopril 2.5 mg tablet 2.5 mg PO DAILY 06/17/23 11/19/23 History benzonatate 100 mg capsule 100 mg PO TID PRN cough #30 caps 06/20/23 11/19/23 Rx infliximab 100 mg intravenous See Rx Instructions IV Q8WK #8 ea 10/12/23 11/19/23 Rx solution (Remicade) azithromycin 250 mg tablet 250 mg PO 3XWK 10/21/23 11/19/23 History budesonide 0.5 mg/2 mL suspension 0.5 mg (2 mL) NEB BIDR #60 doses 10/23/23 11/19/23 Rx for nebulization formoterol fumarate 20 mcg/2 mL 20 mcg (2 mL) NEB BIDR #60 doses 10/23/23 11/19/23 Rx solution for nebulization (Perforomist) prednisone 10 mg tablet 10 mg PO DIRECTED #30 tabs 10/23/23 11/19/23 Rx budesonide 160 mcg-glycopyr 9 2 inh inhalation BID #10.7 grams 10/27/23 11/19/23 Rx mcg-formot 4.8 mcg/actuation HFA inhaler (Breztri Funtactixphere) Patient History Medical History Leiomyoma of uterus History of COVID-19 diagnosed 03/17/21 @ [facility]--had difficulty breathing d/t COPD and had to hospitalized with oxygen for 1 week, pt states no lingering symptoms Crohns disease GERD (gastroesophageal reflux disease) Anxiety History of migraine DVT prophylaxis COPD (chronic obstructive pulmonary disease) well controlled w/ inhaler daily/prn, has not needed neb in "a while" Surgical History History of appendectomy S/P colon resection (07/04/21) Laparoscopic Assisted Right Colon Resection - Gildardo Woods MD, FACS 07/04/2021 History of esophagogastroduodenoscopy (EGD) History of tooth extraction History of tubal ligation History of D&C History of appendectomy History of lumbar surgery x 5; hardware present History of colonoscopy last 02/21/21 @ [facility] History of carpal tunnel surgery BL Family History Brother Diabetes Father , in early 60s from AMI Diabetes Myocardial infarction Mother , in her 60s; "natural" causes No problems noted. Other No family history of adverse response to anesthesia Denies family history of Inflammatory bowel disease Social History Smoking Status: Former smoker Tobacco Type: Cigarettes Age Started Using Tobacco: 16; Age Quit Using Tobacco: 43; packs per day: 2.5; Smoking End Date: approx. 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 Beliefs That Will Affect Care: None marital status: Current Living Situation: Spouse Current Living Situation Comment: lives with and grandson current occupational status: retired current occupation: worked at [employer] How many Children do You have: 1 Other Information That Helps Us Care for You: No other: lives in [place] Feels Safe at Home: Yes Safety Concerns: Feels Safe At This Time Diet: diabetic Seatbelt Use: always Do you think of yourself as: straight/heterosexual Gender Identity: Female Assistive Devices: CPAP, Denture - Upper, Denture - Lower, Glasses and Oxygen - Continuous Review of Systems Review of Systems: All other findings negative except as noted in HPI. Physical Exam Constitutional: WD/WN, vitals as above Respiratory: normal respiratory effort Cardiovascular: Rate/Rhythm: regular rate and regular rhythm Gastrointestinal (Abdomen): Inspection/Auscultation: abdomen normal to inspection and normal bowel sounds Skin: no rashes, warm and dry Results & Data Vital Signs (Past 12 Hours) Vital Signs Temp Pulse Pulse Resp BP BP Pulse Ox 11/20/23 08:00 118 H 18 94 11/20/23 07:28 36.7 C 118 H 18 121/66 95 11/20/23 07:17 119 H 11/20/23 07:11 122 H 20 96 11/20/23 04:30 36.7 C 109 H 18 120/62 91 11/20/23 03:45 115 H 24 95 11/20/23 03:40 115 H 24 95 11/20/23 00:01 116 H 25 H 93 11/19/23 23:33 36.5 C 109 H 18 118/66 93 11/19/23 22:10 113 H 20 93 11/19/23 21:58 117 H O2 Del Method O2 Flow Rate FiO2 11/20/23 08:00 Nasal Cannula 2 11/20/23 07:28 Nasal Cannula 2 11/20/23 07:17 11/20/23 07:11 Nasal Cannula 2 11/20/23 04:30 Room Air 11/20/23 03:45 2 11/20/23 03:40 CPAP 2 11/20/23 00:01 CPAP 2 11/19/23 23:33 CPAP 11/19/23 22:10 2 28 11/19/23 21:58 Laboratory Results 11/20/23 11/20/23 11/19/23 Range/Units 08:10 06:32 21:44 WBC 6.68 (4.8-10.8) K/ul RBC 3.91 L (4.20-5.40) M/uL Hgb 11.4 L (12.0-16.0) g/dl Hct 35.9 L (37.0-47.0) % MCV 91.8 (80.0-100.0) fL MCH 29.2 (25.0-34.0) pg MCHC 31.8 L (32.0-36.0) g/dL RDW Std Deviation 43.8 (36.4-46.3) fL RDW Coeff of Dougie 13.2 (11.5-14.5) % Plt Count 241 (130-400) K/uL MPV 9.9 (9.4-12.4) fL Immature Gran % (Auto) % Neut % (Auto) % Lymph % (Auto) % [place] % (Auto) % Eos % (Auto) % Baso % (Auto) % Neut # (Auto) (1.40-6.50) K/uL Lymph # (Auto) (1.20-3.40) K/uL [place] # (Auto) (0.11-0.59) K/uL Eos # (Auto) (0.00-0.50) K/uL Baso # (Auto) (0.00-0.20) K/uL Immature Gran # (Auto) (0.01-0.20) K/uL Hypersegmented Neuts Ovalocytes VBG pH 7.42 H (7.36-7.41) VBG pCO2 47 (38-50) mmHg VBG pO2 37 mmHg VBG HCO3 31 mmol/L VBG O2 Saturation 67.1 % VBG Base Excess 5.1 mEq/L Sodium 140 (136-145) mmol/L Potassium 4.5 (3.5-5.1) mmol/L Chloride 104 (98-107) mmol/L Carbon Dioxide 33 H (21-32) mmol/L Anion Gap 3 (3-11) BUN 15 (6-23) mg/dl Creatinine 0.88 (0.6-1.2) mg/dl Est Cr Clr Drug Dosing 69.5 ml/min Est GFR ( Amer) 82.2 ml/min Est GFR (Non-Af Amer) 70.9 ml/min BUN/Creatinine Ratio 17.0 (10-20) Glucose 139 H (70-99(Fasting)) mg/dl POC Glucose 131 H (70-99) mg/dl Estimat Average Glucose 131 mg/dl Hemoglobin A1c 6.2 H (4.5-5.6) % Calcium 9.4 (8.6-10.3) mg/dl Magnesium 1.9 (1.7-2.4) mg/dl Total Bilirubin (0.2-1.0) mg/dl AST (13-39) U/L ALT (7-52) U/L Alkaline Phosphatase (34-104) U/L Troponin I High Sens 9.5 (0-14) pg/ml Total Protein (6.0-8.3) gm/dl Albumin (3.4-5.0) gm/dl Globulin (2.5-4.0) gm/dl Albumin/Globulin Ratio (0.9-2) Lipase (11-82) U/L Adenovirus (PCR) (NotDetected) B. pertussis DNA (PCR) (NotDetected) B.parapertussis DNA PCR (NotDetected) C. pneumoniae DNA (PCR) (NotDetected) Coronavirus OC43 (PCR) (NotDetected) Coronavirus HKU1 (PCR) (NotDetected) Coronavirus 229E (PCR) (NotDetected) SARS-CoV-2 (PCR) (NotDetected) Coronavirus NL63 (PCR) (NotDetected) Human Metapneumovir PCR (NotDetected) Influenza Type A (PCR) (NotDetected) Influenza Type B (PCR) (NotDetected) M. pneumoniae (PCR) (NotDetected) Parainfluenza 1 (PCR) (NotDetected) Parainfluenza 2 (PCR) (NotDetected) Parainfluenza 3 (PCR) (NotDetected) Parainfluenza 4 (PCR) (NotDetected) RSV (PCR) (NotDetected) Entero/Rhino (PCR) (NotDetected) 06/20/24 06/20/24 06/20/24 Range/Units 20:18 16:54 15:53 WBC (4.8-10.8) K/ul RBC (4.20-5.40) M/uL Hgb (12.0-16.0) g/dl Hct (37.0-47.0) % MCV (80.0-100.0) fL MCH (25.0-34.0) pg MCHC (32.0-36.0) g/dL RDW Std Deviation (36.4-46.3) fL RDW Coeff of Dougie (11.5-14.5) % Plt Count (130-400) K/uL MPV (9.4-12.4) fL Immature Gran % (Auto) % Neut % (Auto) % Lymph % (Auto) % [place] % (Auto) % Eos % (Auto) % Baso % (Auto) % Neut # (Auto) (1.40-6.50) K/uL Lymph # (Auto) (1.20-3.40) K/uL [place] # (Auto) (0.11-0.59) K/uL Eos # (Auto) (0.00-0.50) K/uL Baso # (Auto) (0.00-0.20) K/uL Immature Gran # (Auto) (0.01-0.20) K/uL Hypersegmented Neuts Ovalocytes VBG pH 7.31 L (7.36-7.41) VBG pCO2 56 H (38-50) mmHg VBG pO2 93 mmHg VBG HCO3 28 mmol/L VBG O2 Saturation 98.0 % VBG Base Excess 0.8 mEq/L Sodium (136-145) mmol/L Potassium (3.5-5.1) mmol/L Chloride (98-107) mmol/L Carbon Dioxide (21-32) mmol/L Anion Gap (3-11) BUN (6-23) mg/dl Creatinine (0.6-1.2) mg/dl Est Cr Clr Drug Dosing ml/min Est GFR ( Amer) ml/min Est GFR (Non-Af Amer) ml/min BUN/Creatinine Ratio (10-20) Glucose (70-99(Fasting)) mg/dl POC Glucose 224 H (70-99) mg/dl Estimat Average Glucose mg/dl Hemoglobin A1c (4.5-5.6) % Calcium (8.6-10.3) mg/dl Magnesium (1.7-2.4) mg/dl Total Bilirubin (0.2-1.0) mg/dl AST (13-39) U/L ALT (7-52) U/L Alkaline Phosphatase (34-104) U/L Troponin I High Sens (0-14) pg/ml Total Protein (6.0-8.3) gm/dl Albumin (3.4-5.0) gm/dl Globulin (2.5-4.0) gm/dl Albumin/Globulin Ratio (0.9-2) Lipase (11-82) U/L Adenovirus (PCR) Not Detected (NotDetected) B. pertussis DNA (PCR) Not Detected (NotDetected) B.parapertussis DNA PCR Not Detected (NotDetected) C. pneumoniae DNA (PCR) Not Detected (NotDetected) Coronavirus OC43 (PCR) Not Detected (NotDetected) Coronavirus HKU1 (PCR) Not Detected (NotDetected) Coronavirus 229E (PCR) Not Detected (NotDetected) SARS-CoV-2 (PCR) Not Detected (NotDetected) Coronavirus NL63 (PCR) Not Detected (NotDetected) Human Metapneumovir PCR Not Detected (NotDetected) Influenza Type A (PCR) Not Detected (NotDetected) Influenza Type B (PCR) Not Detected (NotDetected) M. pneumoniae (PCR) Not Detected (NotDetected) Parainfluenza 1 (PCR) Not Detected (NotDetected) Parainfluenza 2 (PCR) Not Detected (NotDetected) Parainfluenza 3 (PCR) Not Detected (NotDetected) Parainfluenza 4 (PCR) Not Detected (NotDetected) RSV (PCR) Not Detected (NotDetected) Entero/Rhino (PCR) DETECTED A (NotDetected) 11/19/23 Range/Units 14:59 WBC 4.14 L (4.8-10.8) K/ul RBC 3.96 L (4.20-5.40) M/uL Hgb 11.4 L (12.0-16.0) g/dl Hct 36.4 L (37.0-47.0) % MCV 91.9 (80.0-100.0) fL MCH 28.8 (25.0-34.0) pg MCHC 31.3 L (32.0-36.0) g/dL RDW Std Deviation 43.3 (36.4-46.3) fL RDW Coeff of Dougie 13.0 (11.5-14.5) % Plt Count 241 (130-400) K/uL MPV 9.8 (9.4-12.4) fL Immature Gran % (Auto) 0.5 % Neut % (Auto) 90.3 % Lymph % (Auto) 8.0 % [place] % (Auto) 1.0 % Eos % (Auto) 0.0 % Baso % (Auto) 0.2 % Neut # (Auto) 3.74 (1.40-6.50) K/uL Lymph # (Auto) 0.33 L (1.20-3.40) K/uL [place] # (Auto) 0.04 L (0.11-0.59) K/uL Eos # (Auto) 0.00 (0.00-0.50) K/uL Baso # (Auto) 0.01 (0.00-0.20) K/uL Immature Gran # (Auto) 0.02 (0.01-0.20) K/uL Hypersegmented Neuts 1+ Ovalocytes 1+ VBG pH (7.36-7.41) VBG pCO2 (38-50) mmHg VBG pO2 mmHg VBG HCO3 mmol/L VBG O2 Saturation % VBG Base Excess mEq/L Sodium 137 (136-145) mmol/L Potassium 4.4 (3.5-5.1) mmol/L Chloride 103 (98-107) mmol/L Carbon Dioxide 28 (21-32) mmol/L Anion Gap 6 (3-11) BUN 12 (6-23) mg/dl Creatinine 0.99 (0.6-1.2) mg/dl Est Cr Clr Drug Dosing 61.9 ml/min Est GFR ( Amer) 71.3 ml/min Est GFR (Non-Af Amer) 61.5 ml/min BUN/Creatinine Ratio 12.1 (10-20) Glucose 161 H (70-99(Fasting)) mg/dl POC Glucose (70-99) mg/dl Estimat Average Glucose mg/dl Hemoglobin A1c (4.5-5.6) % Calcium 8.8 (8.6-10.3) mg/dl Magnesium (1.7-2.4) mg/dl Total Bilirubin 0.3 (0.2-1.0) mg/dl AST 12 L (13-39) U/L ALT 11 (7-52) U/L Alkaline Phosphatase 81 (34-104) U/L Troponin I High Sens 11.7 (0-14) pg/ml Total Protein 6.7 (6.0-8.3) gm/dl Albumin 3.8 (3.4-5.0) gm/dl Globulin 2.9 (2.5-4.0) gm/dl Albumin/Globulin Ratio 1.3 (0.9-2) Lipase 6 L (11-82) U/L Adenovirus (PCR) (NotDetected) B. pertussis DNA (PCR) (NotDetected) B.parapertussis DNA PCR (NotDetected) C. pneumoniae DNA (PCR) (NotDetected) Coronavirus OC43 (PCR) (NotDetected) Coronavirus HKU1 (PCR) (NotDetected) Coronavirus 229E (PCR) (NotDetected) SARS-CoV-2 (PCR) (NotDetected) Coronavirus NL63 (PCR) (NotDetected) Human Metapneumovir PCR (NotDetected) Influenza Type A (PCR) (NotDetected) Influenza Type B (PCR) (NotDetected) M. pneumoniae (PCR) (NotDetected) Parainfluenza 1 (PCR) (NotDetected) Parainfluenza 2 (PCR) (NotDetected) Parainfluenza 3 (PCR) (NotDetected) Parainfluenza 4 (PCR) (NotDetected) RSV (PCR) (NotDetected) Entero/Rhino (PCR) (NotDetected) PG Care Time/CCT Total # of Minutes Spent Total Time Spent with Patient: Total time spent is greater than 50% in coordination of care (as documented) at patient's floor/unit and/or counseling patient: Coding Level of Care Code 20818 IN/OBS CONSULT LVL 4,60M Diagnoses Crohn's disease with complication, unspecified gastrointestinal tract location K50.919 Digestive disease complication type: unspecified complication Gastrointestinal tract location: unspecified location (1) Crohns disease Digestive disease complication type: unspecified complication Gastrointestinal tract location: unspecified location Qualified Code(s): K50.919 - Crohn's disease, unspecified, with unspecified complications
--- NOTE | 2023-11-20 11:02 | Electrocardiogram Report ---
Test Reason : Blood Pressure : / mmHG Vent. Rate : 118 BPM Atrial Rate : 118 BPM P-R Int : 152 ms QRS Dur : 082 ms QT Int : 314 ms P-R-T Axes : 083 072 071 degrees QTc Int : 440 ms Poor data quality, interpretation may be adversely affected Sinus tachycardia Otherwise normal ECG When compared with ECG of 21-OCT-2023 16:50, Premature atrial complexes are no longer Present Confirmed by Royce Mckeon ([id number]) on 11/20/2023 11:02:22 AM Referred By: Mekhi Reyes Confirmed By:Royce Mckeon
[2023-11-20] MEDS ORDERED: methylPREDNISolone 125 MG/2 ML VIAL IV SCH (12:00)
[2023-11-20] MEDS: methylPREDNISolone 40 MG in SYRINGE 0 ML IV SCH (12:40)
[2023-11-20] MEDS ORDERED: IPRATROPIUM BROMIDE NEB SOLN 0.02% 0.5MG/2.5ML VIAL NEB SCH (13:00)
[2023-11-20] MEDS: IPRATROPIUM BROMIDE NEB SOLN 0.02% 0.5MG/2.5ML VIAL NEB PRN (13:05)
--- NOTE | 2023-11-20 13:28 | Hospitalist Progress Note ---
Date of Service November 20, 2023 Assessment & Plan (1) Acute exacerbation of chronic obstructive pulmonary disease: (2) Eosinophilic asthma: (3) Former smoker: (4) COPD with emphysema: (5) LALO (obstructive sleep apnea): (6) Hypertension: (7) Hyperlipidemia: (8) DM type 2 (diabetes mellitus, type 2): Plan Krystin Jaffe is a 63 y/o F with PMH of significant pulmonary concerns regarding COPD with emphysema + eosinophilic asthma, obstructive sleep apnea, chronic respiratory failure with hypoxia, and prior history of smoking as well as HTN, HLD, diet-controlled DM II, Crohn's dz s/p bowel resection in 2021. Patient has had multiple hospitalizations this year in June, August, September and now again in October. She ultimately presented to the ED with worsening SOB and dyspnea with conversation. 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 available at home Pulmonology consulted and saw pt this morning --> Recommend holding chronic azithromycin for now Will continue IV Solu-Medrol, oral doxycycline per Pulm Continue budesonide and Perforomist nebs per Pulm Adding Incruse to regimen per Pulm's recommendation Will continue scheduled nebs for now - levalbuterol, ipratropium Stopped albuterol nebs 2/2 persistent tachycardia Could potentially consider palliative consultation Will need to restart Tezspire therapy in the outpatient setting - eosinophilic asthma Continue supplemental oxygen titrated to keep saturations > or = 88% per Pulm Repeat CBC in AM Per Pulmonology as well: If she improves, can transition to oral steroids and disposition out of the hospital with outpatient pulmonary follow-up. Can address restarting chronic azithromycin therapy and consider trilogy as well as potential nocturnal positive pressure ventilation in lieu of her CPAP with her outpatient saw man (Dr. Green). Right Elbow Staph Infection Seen by PCP on 11/09 for this Wound cx positive for Staph aureus Was previously on Keflex Switch to doxycycline on admission Will continue doxycycline Site of infection appears to be healing well Will continue to monitor site of infection Tachycardia Pt has known hx of persistent, baseline tachycardia Palpitations, chest heaviness/tightness from yesterday has resolved Trop negative, 11.7 --> 9.5 on admission Had Zio patch patch placed earlier this month -> Revealed baseline sinus tach w/ many short runs of SVT Not currently on any rate-controlling medications Echo done today --> Normal LV function, LVEF = 50-55% and no significant valvular pathology. Will not be starting BB therapy at this time 2/2 resp status Continue to monitor on telemetry EKG w/ chest pain as needed More than likely will need outpatient stress echo Pt is scheduled to see [facility] Cardiology in the outpatient setting on 12/29 [Dr. Mo] DM Type II, Diet-Controlled -Glucose checks ACHS -Last Hgb A1c 6.4 in 07/27/23 -Hgb A1c 6.2 today, continue CC/DM2 diet -Repeat BMP in AM Abdominal Pain/Bloody Stools Hx of Crohn's Disease Pt had some bloody stools ~1 week ago Had some abd pain/nausea on admission Not currently c/o nausea or abd pain GI was consulted and saw pt this morning --> No acute indication for inpatient endoscopic evaluation at this time - especially given current respiratory status. Pt on chronic Remicade q 8 weeks --> GI recommends having her drug levels/antibodies checked prior to next infusion. Pt follows / [facility] GI --> Office is planning on moving up her f/u appt to the beginning of November, will assess candidacy for EGD/Colonoscopy at that time. If pt develops loose stools, will need to check stool studies per GI If pt develops any acute abd discomfort, should arrange CT per GI Need to obtain fecal calprotectin - order placed by GI May use IV Zofran as needed Will get CRP in AM to assess overall inflammatory status Obstructive Sleep Apnea (LALO): Continue CPAP HS Hypertension (HTN) & Hyperlipidemia (HLD): Can continue home medications for these conditions - lisinopril and atorvastatin. Chronic Back Pain: Continue gabapentin, tramadol PRN Depression: Continue bupropion, duloxetine GERD: Continue PPI therapy DVT Prophylaxis: SCDs/TEDs Code Status: FULL CODE PCP: Mekhi Reyes MD Disposition: Probable discharge to home sometime over the weekend when clinically stable. Will need hospital follow-up appointment with PCP upon discharge. Patient seen in collaboration with Dr. Crawford. Please see addendum. I spent a total of 55 minutes coordinating, documenting, and providing care for this patient excluding time spent in the performance of separately billed services. This included personally reviewing all current laboratories and imaging studies, medical reconciliation, outpatient chart review and discussion with specialists. This chart was completed in part utilizing Speech Voice Recognition Software. Grammatical errors, random word insertions, pronoun errors, and incomplete sentences are an occasional consequence of this system due to software limitations, ambient noise, and hardware issues. Any formal questions or concerns about the content, text, or information contained within the body of this dictation should be directly addressed to the provider for clarification. Admission and Anticipated Discharge Date Admission Date: November 19, 2023 Supervising Physician Co-Signing Physician Notes Patient seen and examined independently. Discussed with provider. Patient admitted with COPD exacerbation secondary to rhinovirus infection Continue [id number] DuoNebs, inhaled corticosteroids and IV steroids. Pulmonology consulted; appreciate recommendation Telemetry shows sinus tachycardia; review of outpatient chart also shows sinus tachycardia with periods of SVT on Zio patch. Discussed regarding starting metoprolol after acute exacerbation of COPD is over; patient is agreeable. I have reviewed the advanced practitioner's documentation, and I agree with, and take responsibility for the plan of care I spent a total of30 minutes coordinating, documenting, and providing care for this patient excluding time spent in the performance of separately billed services. All of the aforementioned completed while collaborating with the assigned advanced practitioner for a full treatment plan Subjective Patient seen and examined at bedside in room N279-1. Patient still c/o of SOB, on 2L O2 at baseline. States she feels pretty much the same as yesterday. Notes that is it hard to even walk to the bathroom. Becomes even more SOB, c/o significant fatigue and weakness. Not currently experiencing any chest tightness/heaviness like she was yesterday. Made aware of the plan moving forward, agreeable so far. Review of Systems Review of Systems: At least ten systems reviewed and negative, except as noted in the HPI. Physical Exam Physical Exam: General: WD/WN, vitals as above, NAD, laying down in bed, conversing appropriately, A+Ox3. HEENT: Normocephalic, atraumatic. Normal inspection, PERRL, conjunctivae normal, anicteric sclerae. External ear and nose normal, oropharynx normal. Respiratory: Dyspnea at rest and w/ exertion, + cough, wheezing in all lung rae, currently wearing 2L supplemental oxygen. Cardiovascular: Tachycardic, regular rhythm, no murmur, normal peripheral pulses, no BLE edema. Vessels: No JVD. Abdomen/GI: Normal bowel sounds, soft, nontender, no hepatosplenomegaly. Extremities/Musculoskeletal: No cyanosis or clubbing, extremities motor strength intact, moves all extremities. Neurologic: EOMI, accommodation nl, no face palsy, no dysarthria, CN's II-XI not formally tested but appear intact bilaterally. Skin: No rashes, normal color, warm/dry. Results & Data Results & Data Vital Signs (Past 12 Hours) Vital Signs Temp Pulse Pulse Resp BP BP Pulse Ox 11/20/23 13:06 115 H 22 96 11/20/23 11:48 36.6 C 115 H 18 137/71 93 11/20/23 09:35 11/20/23 08:00 118 H 18 94 11/20/23 07:28 36.7 C 118 H 18 121/66 95 11/20/23 07:17 119 H 11/20/23 07:11 122 H 20 96 11/20/23 04:30 36.7 C 109 H 18 120/62 91 11/20/23 03:45 115 H 24 95 11/20/23 03:40 115 H 24 95 O2 Del Method O2 Flow Rate 11/20/23 13:06 Nasal Cannula 2 11/20/23 11:48 Nasal Cannula 2 11/20/23 09:35 Nasal Cannula 2 11/20/23 08:00 Nasal Cannula 2 11/20/23 07:28 Nasal Cannula 2 11/20/23 07:17 11/20/23 07:11 Nasal Cannula 2 11/20/23 04:30 Room Air 11/20/23 03:45 2 11/20/23 03:40 CPAP 2 Laboratory Results Short CBC 11/19/23 11/20/23 Range/Units 14:59 06:32 WBC 4.14 L 6.68 (4.8-10.8) K/ul Hgb 11.4 L 11.4 L (12.0-16.0) g/dl Hct 36.4 L 35.9 L (37.0-47.0) % Plt Count 241 241 (130-400) K/uL BMP 11/19/23 11/20/23 14:59 06:32 Sodium 137 140 Potassium 4.4 4.5 Chloride 103 104 Carbon Dioxide 28 33 H BUN 12 15 Creatinine 0.99 0.88 Glucose 161 H 139 H Calcium 8.8 9.4 Liver Function 11/19/23 Range/Units 14:59 Total Bilirubin 0.3 (0.2-1.0) mg/dl AST 12 L (13-39) U/L ALT 11 (7-52) U/L Alkaline Phosphatase 81 (34-104) U/L Albumin 3.8 (3.4-5.0) gm/dl Diagnostic Findings Chest X-Ray 11/19/23 14:43 XR chest 1V portable CLINICAL HISTORY: Chest pain, nonspecific TECHNIQUE: Single frontal radiograph of the chest was obtained. Comparison: Comparison is made to CTA chest 10/21/2023 and chest radiograph 10/21/2023 FINDINGS: No lines and tubes are seen. Cardiomegaly is noted. The lungs are clear. No evidence of pleural effusion or pneumothorax. Blunting of the left costophrenic angle is compatible with extrapleural fat. IMPRESSION: No acute chest disease. Cardiomegaly is noted. ACT 112: Negative or not required by law. Electronically signed by: Emanuel Ambrose M.D. 11/19/2023 3:25 PM Chest CTA 11/19/23 16:49 CT ANGIOGRAM OF THE CHEST CLINICAL HISTORY: Atypical chest pain. COMPARISON STUDY: Chest CT dated 10/21/2023. Chest x-ray dated 11/19/2023. TECHNIQUE: Following the IV administration of 119 cc of Optiray 320, CT angiogram of the chest was performed from the upper abdomen to the thoracic inlet using the pulmonary embolus protocol. Images are reviewed in the axial, sagittal, and coronal planes. 3-D MIPS images are created and assessed. IV c ontrast was administered without complication. A dose lowering technique was utilized adhering to the principles of ALARA. CT DOSE: 627.34 mGy.cm FINDINGS: Thyroid: Enlarged and heterogeneous, typical for goiter. Calcifications are noted in both lobes. Thoracic aorta: There is atherosclerotic calcification of the thoracic aorta, which is normal in caliber and demonstrates bovine variant arch anatomy. No dissection is seen. Pulmonary vasculature: The pulmonary trunk is normal in caliber. There are no filling defects identified within the main, lobar, or segmental pulmonary branches to indicate pulmonary embolus. Heart: The heart is top normal in size and without pericardial effusion. There are coronary artery calcifications. Lungs and pleural spaces: There is mild emphysematous change. There is no lobar consolidation or pleural effusion. The trachea and central airways are clear faint tree-in-bud opacities within the upper lobes are likely inflammatory. Diffuse peribronchial thickening is observed. Mediastinum: There is no mediastinal lymphadenopathy. Therese: Clear. Axillae: There is no axillary lymphadenopathy. Upper abdomen: Partially visualized upper abdominal viscera is within normal limits. Skeletal structures: The skeletal structures are osteopenic. Degenerative change is noted in the shoulders and spine. No lytic or blastic bony lesions are seen. There are chronic/healed right-sided rib fractures. IMPRESSION: 1. There is no evidence of pulmonary embolus in the main, lobar, or segmental pulmonary arteries. 2. Mild emphysema. 3. There is no airspace consolidation or pleural effusion. 4. Diffuse peribronchial thickening suggests bronchitis/reactive air disease and faint upper lobe tree in bud opacities are likely inflammatory. Correlate clinically. 5. Additional findings as above. ACT 112: Negative or not required by law. Electronically signed by: Sean Kirkpatrick M.D. 11/19/2023 6:47 PM Medications Administered Atorvastatin Calcium (Atorvastatin 40 Mg Tab) 40 mg PO HS [facility] Stop: 12/19/23 20:59 Last Admin: 11/19/23 21:16 Dose: 40 mg Documented By: GIULIA Budesonide (Budesonide 0.5 Mg/2 Ml Vial (Pulmicort)) 0.5 mg NEB BIDR JESSENIA Stop: 12/20/23 07:29 Last Admin: 11/20/23 08:00 Dose: 0.5 mg Documented By: DOMINGO Bupropion HCl (Bupropion Xl 150 Mg Tabcr) 150 mg PO DAILYBL [facility] Stop: 12/20/23 10:29 Last Admin: 11/20/23 09:20 Dose: 150 mg Documented By: SANDRA Celecoxib (Celecoxib 100 Mg Cap) 100 mg PO DAILY JESSENIA Stop: 12/20/23 08:59 Last Admin: 11/20/23 09:21 Dose: 100 mg Documented By: SANDRA Doxycycline Hyclate (Doxycycline Hyclate 100 Mg Cap) 100 mg PO BID [facility] Stop: 11/26/23 20:59 Last Admin: 11/20/23 09:21 Dose: 100 mg Documented By: Admin: 11/19/23 21:16 Dose: 100 mg Documented By: GIULIA Duloxetine HCl (Duloxetine Hcl 60 Mg Cap) 60 mg PO QAM JESSENIA Stop: 12/20/23 08:59 Last Admin: 11/20/23 09:21 Dose: 60 mg Documented By: SANDRA Formoterol Fumarate (Formoterol 20 Mcg/2 Ml Vial) 20 mcg NEB BIDR JESSENIA Stop: 12/19/23 19:58 Last Admin: 11/20/23 07:10 Dose: 20 mcg Documented By: Admin: 11/19/23 20:15 Dose: Not Given Documented By: JYOTHI Gabapentin (Gabapentin 800 Mg Tab) 800 mg PO TID JESSENIA Stop: 12/19/23 20:59 Last Admin: 11/20/23 12:40 Dose: 800 mg Documented By: Admin: 11/20/23 09:21 Dose: 800 mg Documented By: Admin: 11/19/23 21:16 Dose: 800 mg Documented By: GIULIA Heparin Sodium (Porcine) (Heparin Sod 5,000 Unit/0.5 Ml Vial) 5,000 units SQ Q12 JESSENIA Stop: 12/19/23 20:59 Last Admin: 11/20/23 09:20 Dose: 5,000 units Documented By: Admin: 11/19/23 21:16 Dose: 5,000 units Documented By: GIULIA Methylprednisolone 40 mg/ (Syringe) 0.64 mls @ 1.5 mls/min IV Q8H JESSENIA Stop: 12/20/23 11:59 Last Admin: 11/20/23 12:40 Dose: 1.5 mls/min Documented By: SANDRA Insulin Aspart (Insulin Aspart Per Unit Charge) 0 units SC ACHS JESSENIA Stop: 12/19/23 20:59 Last Admin: 11/20/23 13:09 Dose: 2 units Documented By: SANDRA Co-signed By: HERBER Admin: 11/20/23 09:26 Dose: 4 units Documented By: SANDRA Co-signed By: JYOTHI(2) Admin: 11/19/23 21:17 Dose: 2 units Documented By: GIULIA Co-signed By: CALIN Ipratropium Pierce (Ipratropium Pierce Neb Soln 0.02% 0.5mg/2.5ml Vial) 0.5 mg NEB Q6R PRN PRN Reason: Wheezing Stop: 12/20/23 12:59 Last Admin: 11/20/23 13:05 Dose: 0.5 mg Documented By: LEIDY Levalbuterol HCl (Levalbuterol 1.25 Mg/3 Ml Neb) 1.25 mg NEB Q6R JESSENIA Stop: 12/20/23 08:29 Last Admin: 11/20/23 13:05 Dose: 1.25 mg Documented By: Admin: 11/20/23 09:11 Dose: Not Given Documented By: LAWRENCE Lisinopril (Lisinopril 2.5 Mg Tab) 2.5 mg PO DAILY [facility] Stop: 12/20/23 08:59 Last Admin: 11/20/23 09:20 Dose: 2.5 mg Documented By: SANDRA Pantoprazole Sodium (Pantoprazole 40 Mg Tab) 40 mg PO QAM [facility] Stop: 12/20/23 08:59 Last Admin: 11/20/23 09:21 Dose: 40 mg Documented By: SANDRA Trazodone HCl (Trazodone Hcl 50 Mg Tab) 50 mg PO HS [facility] Stop: 12/19/23 20:59 Last Admin: 11/19/23 21:16 Dose: 50 mg Documented By: GIULIA Umeclidinium Pierce (Umeclidinium Pierce 62.5mcg/Blister 7 Puffs/Inhaler) 1 puffs INH DAILY JESSENIA Stop: 12/20/23 08:59 Last Admin: 11/20/23 09:20 Dose: 1 puffs Documented By: SANDRA Vitamin D (Cholecalciferol 25 Mcg (1000 Units) Tab) 25 mcg PO QAM JESSENIA Stop: 12/20/23 08:59 Last Admin: 11/20/23 09:21 Dose: 25 mcg Documented By: SANDRA Discontinued Medications Albuterol (Albut/Ipratrop 3mg/0.5mg Neb 3 Ml Vial) 12 ml NEB ONE ONE; Protocol Stop: 11/19/23 14:49 Last Admin: 11/19/23 15:09 Dose: 12 ml Documented By: CLAY Albuterol (Albut/Ipratrop 3mg/0.5mg Neb 3 Ml Vial) 3 ml NEB Q4R JESSENIA; Protocol Stop: 12/19/23 19:58 Last Admin: 11/20/23 07:10 Dose: Not Given Documented By: Admin: 11/20/23 03:39 Dose: 3 ml Documented By: Admin: 11/20/23 00:00 Dose: 3 ml Documented By: Admin: 11/19/23 20:13 Dose: 3 ml Documented By: TMP Fluticasone/Vilanterol (Fluticasone/Vilanterol 200/25mcg 14 Puffs/Inhaler) 1 puffs INH DAILY JESSENIA; Protocol Stop: 12/19/23 20:59 Last Admin: 11/19/23 21:16 Dose: 1 puffs Documented By: GIULIA Ioversol (Optiray 320 125ml) 119 ml IV ONCE ONE Stop: 11/19/23 17:18 Last Admin: 11/19/23 17:17 Dose: 119 ml Documented By: CLAUDE Methylprednisolone (Methylprednisolone 125 Mg/2 Ml Vial) 60 mg IV NOW STA Stop: 11/19/23 14:49 Last Admin: 11/19/23 15:09 Dose: 60 mg Documented By: CLAY (4) COPD with emphysema Emphysema type: unspecified Qualified Code(s): J43.9 - Emphysema, unspecified (6) Hypertension Hypertension type: unspecified Qualified Code(s): I10 - Essential (primary) hypertension (7) Hyperlipidemia Hyperlipidemia type: unspecified Qualified Code(s): E78.5 - Hyperlipidemia, unspecified (8) DM type 2 (diabetes mellitus, type 2) Diabetes mellitus complication status: without complication Diabetes mellitus assistant terminal manager insulin use: unspecified assistant terminal manager insulin use status Qualified Code(s): E11.9 - Type 2 diabetes mellitus without complications
--- NOTE | 2023-11-20 16:35 | Electrocardiogram Report ---
Test Reason : Blood Pressure : / mmHG Vent. Rate : 119 BPM Atrial Rate : 119 BPM P-R Int : 146 ms QRS Dur : 080 ms QT Int : 326 ms P-R-T Axes : 079 071 069 degrees QTc Int : 458 ms Sinus tachycardia with Fusion complexes Otherwise normal ECG When compared with ECG of 21-OCT-2023 16:50, Fusion complexes are now Present Premature atrial complexes are no longer Present Confirmed by Royce Mckeon ([id number]) on 11/20/2023 4:35:07 PM Referred By: Mekhi Reyes Confirmed By:Royce Mckeon
[2023-11-20] MEDS: traMADol HCL 50 MG TABLET PO PRN (20:34)
--- NOTE | 2023-11-21 07:46 | Pulmonology Progress Note ---
Date of Service November 21, 2023 Assessment & Plan (1) Acute exacerbation of chronic obstructive pulmonary disease: (2) Shortness of breath: (3) Eosinophilic asthma: (4) Chronic respiratory failure with hypoxia: Plan IMPRESSION: 63-year-old female with a significant pulmonary history of COPD with emphysema, eosinophilic asthma, obstructive sleep apnea, chronic respiratory failure with hypoxia, and prior history of smoking who presents in the setting of COPD with exacerbation and worsening dyspnea. She is clinically improved. RECOMMENDATIONS: 1. COPD with exacerbation -Transition to oral prednisone (20 mg a day for 5 days) and complete course of doxycycline. Continue budesonide and Perforomist. Add Incruse. Can use as needed DuoNebs. Given her improvement, would recommend discharging her on nebulized therapies for now. Can address restarting chronic azithromycin therapy and consider trilogy as well as potential nocturnal positive pressure ventilation in lieu of her CPAP with her outpatient cemetery laborer (Dr. Green). 2. Shortness of breath -improved. 3. Eosinophilic asthma - Recently started on Tezspire. Will need to restart in the outpatient setting 4. Chronic respiratory failure with hypoxia -continue oxygen titrated to keep saturations at or above 88%. The patient has oxygen at home 5. Obstructive sleep apnea - Continue with home CPAP settings at night. She appears significantly improved and would like to see how she does with am bulation today and if she does okay potentially discharge home. She can follow- up in the outpatient setting with Dr. Green or JOSE ANTONIO Jaffe. Pulmonary will sign off. Feel free to contact us with questions or concerns Admission and Anticipated Discharge Date Admission Date: November 19, 2023 Subjective Patient seen and examined. EMR reviewed. The patient reports that she is doing better this morning. She used CPAP last night. She is ambulatory and does feel little shortness of breath but her coughing and wheezing is markedly improved. Review of Systems Review of Systems: All systems reviewed & are unremarkable except as noted in Subjective Physical Exam Physical Exam: VITAL SIGNS - Vital signs and nursing notes were reviewed. GENERAL - 63-year-old female appearing her stated age who is in no acute distress. Communicates well with provider and answers questions appropriately. SKIN - Without rashes or lesions. NOSE - Midline and without cyanosis. MOUTH/OROPHARYNX - Without perioral cyanosis. Buccal mucosa pink and moist and without leukoplakia or thrush. NECK - Neck with FROM. LUNGS - Chest wall evaluation demonstrates normal chest wall A:P diameter. Auscultation reveals no wheezing. Breath sounds are diminished bilaterally. No rales appreciated. CARDIAC - RRR with S1/S2. No murmur, rubs, or gallops appreciated. ABDOMEN - Abdominal inspection demonstrates an obese abdomen. BS normoactive all four quadrants. No tenderness, palpable masses, or ascites noted. EXTREMITIES - Nail clubbing not present. No peripheral cyanosis. No pretibial edema present. +3/5 radial palpated throughout. PSYCH - A&Ox3 and cooperates fully with examiner. Pt is very pleasant and interacts well with examiner. Results & Data Results & Data Vital Signs (Past 12 Hours) Vital Signs Temp Pulse Pulse Resp BP BP Pulse Ox 11/21/23 07:36 36.3 C L 116 H 16 129/90 95 11/21/23 03:08 100 H 16 93 11/21/23 03:07 36.5 C 114 H 18 123/77 92 11/21/23 01:24 114 H 16 96 11/20/23 22:50 117 H 93 11/20/23 22:34 36.5 C 119 H 18 122/67 89 L 11/20/23 21:58 115 H 11/20/23 21:00 78 17 98 11/20/23 20:30 O2 Del Method O2 Flow Rate 11/21/23 07:36 Nasal Cannula 2.5 11/21/23 03:08 6 11/21/23 03:07 CPAP 6 11/21/23 01:24 CPAP 6 11/20/23 22:50 CPAP 11/20/23 22:34 CPAP 2 11/20/23 21:58 11/20/23 21:00 2 11/20/23 20:30 Nasal Cannula 2 PG Care Time/CCT Total # of Minutes Spent Total Time Spent with Patient: Total time spent is greater than 50% in coordination of care (as documented) at patient's floor/unit and/or counseling patient: Coding Level of Care Code 00220 SUB INP/OBS CARE 2/35MIN Diagnoses Acute exacerbation of chronic obstructive pulmonary disease J44.1 Shortness of breath R06.02 Eosinophilic asthma J82.83 Chronic respiratory failure with hypoxia J96.11
[2023-11-21 07:47] LABS: Hematocrit (blood only) 36.5 % (37.0-47.0); Hemoglobin 11.4 g/dl (12.0-16.0); Mean Corpuscular Hemoglobin 28.6 pg (25.0-34.0); Mean Corpuscular Hgb Conc 31.2 g/dL (32.0-36.0); Mean Corpuscular Volume 91.7 fL (80.0-100.0); Platelet Count 266 K/uL (130-400); RDW Coefficient of Variation 13.3 % (11.5-14.5); RDW Standard Deviation 44.6 fL (36.4-46.3); Red Blood Count 3.98 M/uL (4.20-5.40); White Blood Count 7.58 K/ul (4.8-10.8)
[2023-11-21 07:49] LABS: Anion Gap 4 (3-11); BUN Creatinine Ratio 25.3 (10-20); Blood Urea Nitrogen 25 mg/dl (6-23); C Reactive Protein < 0.50 mg/dl (0-0.5); Calcium 9.2 mg/dl (8.6-10.3); Carbon Dioxide 32 mmol/L (21-32); Chloride 105 mmol/L (98-107); Creatinine Clr Calc Pharmacy 62.1 ml/min; Est GFR (African American) 71.3 ml/min; Est GFR (Non-African American) 61.5 ml/min; Glucose 154 mg/dl (70-99(Fasting)); Potassium 4.4 mmol/L (3.5-5.1); Sodium 141 mmol/L (136-145)
[2023-11-21 08:23] LABS: Basophils # (auto) 0.01 K/uL (0.00-0.20); Basophils % (auto) 0.1 %; Immature Granulocytes # (auto) 0.07 K/uL (0.01-0.20); Immature Granulocytes % (auto) 0.9 %; Lymphocytes % (auto) 5.3 %; Monocytes # (auto) 0.14 K/uL (0.11-0.59); Monocytes % (auto) 1.8 %; Neutrophils # (auto) 6.96 K/uL (1.40-6.50); Neutrophils % (auto) 91.9 %; RBC Morphology Unremarkable
[2023-11-21] MEDS: predniSONE 20 MG TAB PO SCH (09:22)
--- NOTE | 2023-11-21 12:54 | Discharge Summary ---
Date of Service November 21, 2023 Admission HPI Per Admitting Provider This is a 63 yo F with PMH with significant pulmonary history of COPD with emphysema, eosinophilic asthma, obstructive sleep apnea, chronic respiratory failure with hypoxia, and prior history of smoking as well as HTN, HLD, diet controlled DM II, Crohn's s/p bowel resection in 2021. Patient has had multiple hospitalizations this year in June, August, September and now again in October. She presents today with worsening shortness of breath and dyspnea with conversation. Patient was following as outpatient with pulmonology here at [facility], was recently prescribed a Breztri inhaler for trial with a spacer and had planned follow-up within 6 to 8 weeks from 10/27/2023. She is 3 weeks out from this visit, now returning to the ER with worsening symptoms yet again. Her VBG is reviewed showing pH of 7.31, CO2 retention 56. She is currently on her 2L NC, at baseline. She uses 3 L with exertion. Pt states she is coughing, yellow phlegm, no hemoptysis, but worsened overnight. She has not been using albuterol inhaler while trying Breztri, which she started right after the last admission. Family at bedside report she's scheduled to see a new plate maker end of November, and is supposed to have further work up on her heart. Hasn't had an ultrasound that she is aware of recently. She feels her heart racing, had some chest heaviness. She has recently had a Zio patch but is unaware of any abnormal results. Pt is on Remicade for Crohns disease and scheduled to have it next week. Pt reports occasional blood in stool, but last time was about 1 week ago. Appetite is good. Pt admits to having chills, and having chronic nausea on nearly daily basis which she uses zofran for. Pt is also being treated for staph infection on her right elbow and has been taking Keflex TID since 11/09 x 10 day course. Admission Exam Per Admitting Provider Constitutional: No fever, sweats, + chills Eyes: No diplopia, no worsening or blurred vision ENT: normal hearing, no trouble swallowing Respiratory: + cough, sputum, +dyspnea at rest and on exertion, wearing 2-3 L at home Cardiovascular: As per HPI. Currently no chest pain, tightness or palpitations Abdomen: + pain, + nausea, novomiting, no diarrhea or constipation, hx of bloody stool x 1 a week ago Musculoskeletal: No joint pain, calf pain, swelling Neurologic: No weakness, numbness/tingling, or balance problems Psychiatric: No anxiety or depression Skin: No rash or itch Principal Diagnosis COPD exacerbation Discharge Exam Constitutional: No fever, sweats, + chills Eyes: No diplopia, no worsening or blurred vision ENT: normal hearing, no trouble swallowing Respiratory: + cough, sputum, +dyspnea at rest and on exertion, wearing 2-3 L at home Cardiovascular: As per HPI. Currently no chest pain, tightness or palpitations Abdomen: + pain, + nausea, novomiting, no diarrhea or constipation, hx of bloody stool x 1 a week ago Musculoskeletal: No joint pain, calf pain, swelling Neurologic: No weakness, numbness/tingling, or balance problems Psychiatric: No anxiety or depression Skin: No rash or itch Discharge Data Allergies Allergy/AdvReac Type Severity Reaction Status Date / Time adhesive tape AdvReac Severe TEARS SKIN Verified 10/21/23 20:24 Consultations 11/19/23 16:17 ED Decision to Admit Stat 11/19/23 17:35 Consult Gastroenterology Routine 11/19/23 19:59 Consult Pulmonology Routine Ordered Studies 11/19/23 16:49 CT angio chest PE protocol Stat Hospital Course (1) Acute exacerbation of chronic obstructive pulmonary disease: (2) Eosinophilic asthma: (3) Former smoker: (4) COPD with emphysema: (5) LALO (obstructive sleep apnea): (6) Hypertension: (7) Hyperlipidemia: (8) DM type 2 (diabetes mellitus, type 2): Oma Jaffe is a 63 y/o F with PMH of significant pulmonary concerns regarding COPD with emphysema + eosinophilic asthma, obstructive sleep apnea, chronic respiratory failure with hypoxia, and prior history of smoking as well as HTN, H LD, diet-controlled DM II, Crohn's dz s/p bowel resection in 2021. Patient has had multiple hospitalizations this year in June, August, September and now again in October. She ultimately presented to the ED with worsening SOB and dyspnea with conversation. CXR negative, chest CTA revealed diffuse peribronchial thickening -> suggestive of bronchitis, reactive airway disease RVP Positive for Enterovirus/Rhinovirus Patient was admitted to medical floor; pulmonology was consulted for comanagement given recurrent admission. Patient was started on [id number] DuoNeb, doxycycline, inhaled budesonide and formoterol. Patient gradually improved throughout the hospitalization; was at baseline oxygen requirement with decreased wheezing. She was discharged home on nebulized budesonide and formoterol, 5 days of steroids and antibiotic course. Patient to follow-up with PCP and pulmonology. Patient was found to have sinus tachycardia during the hospitalization; no episode of SVT. Outpatient Zio patch had shown sinus tachycardia with short run of SVT. I discussed with patient regarding possibly starting beta-dena as outpatient. Patient will discuss with her primary care doctor. Please note the above document was generated using voice recognition software. It may contain grammatical, syntax or spelling errors. Any formal questions or concerns about the content, text or information contained within the body of this dictation should be directly addressed to the provider for clarification Total Time Total Time Spent Total Time Spent (In Minutes): 45 Total Time Includes: Examination of the Patient, Discharge Planning, Medication Reconciliation, Communication With Other Providers and Other Discharge Plan Discharge Items Patient Disposition: Home - Self-Care Reason For Visit: COPD EXACERBATION Discharge Diagnosis: Acute COPD Exacerbation Activity: Resume your previous activity Non-emergency contact: Primary Care Provider Call non-emergency contact if: you have any medication questions and your symptoms worsen Follow-up/Referrals: [facility] [Physician] - Mekhi Reyes MD [Primary Care Provider] - 11/25/23 10:20 am (Date & Time 11/25/2023 10:20 AM Provider Maritza Dumont MD [facility] ) Diet: Regular Addtl Attending Provider Instructions: You were admitted to the hospital due to COPD exacerbation. You are evaluated by pulmonology during the hospitalization. Please follow the recommendation below for your COPD. 1) Use budesonide and formoterol nebulizer 2 times a day every day. It was prescribed to you last time when you were here 2) Use DuoNebs every 6 hours for next 3 days. After that, use it only when you have increasing shortness of breath 3) Doxycycline 100 mg twice a day for 5 days. After you complete the doxycycline treatment; you can go back to taking azithromycin 3 times a week as before. 4) Incruse inhaler once a day every day. 5) Prednisone 20 mg once a day for 5 days. Please stop taking Breztri aerosphere inhaler for now. Please follow-up with your primary care doctor. Your heart rate is found to be in the higher side. Once your acute flare is over, it might be beneficial that you are started on metoprolol to decrease the heart rate. Pending Studies at Discharge: No Stand-Alone Forms: [facility], Sm[facility] Cess[facility] Medications and DC Order Prescriptions: New Incruse Ellipta 62.5 mcg/actuation Blister With Device 1 inh inhalation DAILY Qty: 30 0RF doxycycline hyclate 100 mg Capsule 100 mg PO BID 5 Days Qty: 10 0RF prednisone 20 mg Tablet 20 mg PO DAILY 5 Days Qty: 5 0RF ipratropium-albuterol 0.5 mg-3 mg(2.5 mg base)/3 mL solution for nebulization 3 ml inhalation Q6HWA Qty: 90 0RF Continued pantoprazole [Protonix] 40 mg tablet,delayed release (DR/EC) 40 mg PO QAM Qty: 90 3RF infliximab [Remicade] 100 mg recon soln See Rx Instructions IV Q8WK Qty: 8 8RF Rx Instructions: DUE OCTOBER 02, 2023. 10 mg/kg intravenously every 8 weeks; albuterol sulfate 90 mcg/actuation HFA aerosol inhaler 2 puff inhalation Q4H PRN (Reason: Shortness Of Breath Or Wheezing) Qty: 8.5 5RF (DME) Portable Oxygen Misc See Rx Instructions .MEDSUPPLY Qty: 1 0RF Rx Instructions: Oxygen 2 liters continuous via nasal cannula on exertion with portable concentrator. ANA MARIA 99 Tezspire 210 mg/1.91 mL (110 mg/mL) pen injector 210 mg subcut Q4WK Qty: 1.91 11RF Rx Instructions: HAD 10/12/23. Inject 210 mg Subcutaneously every 4 weeks Approved via [employer] from 05/08/23-11/07/23 cholecalciferol (vitamin D3) [Vitamin D3] 1,000 unit Capsule 1,000 unit PO QAM bupropion HCl 150 mg tablet extended release 24 hr 150 mg PO DAILYBL Women's One Daily 18 mg iron-400 mcg-500 mg Ca Tablet 1 tab PO QAM tramadol 50 mg tablet 50 mg PO BID PRN (Reason: Pain) gabapentin 800 mg tablet 800 mg PO TID celecoxib 100 mg capsule 100 mg PO DAILY duloxetine 60 mg capsule,delayed release(DR/EC) 60 mg PO QAM trazodone 50 mg tablet 50 mg PO HS atorvastatin 40 mg tablet 40 mg PO HS lisinopril 2.5 mg tablet 2.5 mg PO DAILY ipratropium-albuterol 0.5 mg-3 mg(2.5 mg base)/3 mL solution for nebulization 3 ml inhalation QID PRN (Reason: Shortness Of Breath Or Wheezing) benzonatate 100 mg Capsule 100 mg PO TID PRN (Reason: cough) Qty: 30 0RF budesonide 0.5 mg/2 mL Suspension For Nebulization 0.5 mg NEB BIDR Qty: 60 0RF formoterol fumarate [Perforomist] 20 mcg/2 mL Solution For Nebulization 20 mcg NEB BIDR Qty: 60 0RF prednisone 10 mg tablet 10 mg PO DIRECTED Qty: 30 0RF Rx Instructions: 4 tabs daily for 3 days, 3 tabs daily for 3 days, 2 tabs daily for 3 days and then 1 tab daily for 3 days Held Breztri Aerosphere 160-9-4.8 mcg/actuation HFA aerosol inhaler 2 inh inhalation BID Qty: 10.7 3RF Hold Instructions: Resume on 11/30/23. Hold till you see your oncologist. azithromycin 250 mg tablet 250 mg PO 3XWK Hold Instructions: Resume on 11/30/23. Hold till you complete course of Doxycyline Rx Instructions: Thursday, Thursday and Thursday Discharge Orders: Discharge Order (Routine); Ordered 11/21/23 Ordered By: Temo Valentin/Other Patient Handouts: Managing Type 2 Diabetes Admission Data Admit Date/Time: 11/19/23 16:36 Attending Provider: Temo Crawford Admit Provider: Jonathon Fuentes Primary Care Provider: Mekhi Reyes Other Providers: Jonathon Fuentes; Geo Herrera; Doug Harman
== END 2023-11-21 13:38 | disposition home or self-care (01) ==
LOC: 2N 14:12 → ED 14:12 → SUATTDRO 16:36 → 2N 19:38